=== PATIENT | male | born 1955 | race Caucasian/White ===

== ENCOUNTER 2017-10-06 10:40 | Inpatient (IN) | payer MEDICAID ==
[~2017-10-06] VITALS: Ht 175.3 cm; Wt 103.4 kg
[2017-10-06 10:42] VITALS: BP 162/85
[2017-10-06] MEDS ORDERED: ELIQUIS2.5 MG PO (10:58)
[2017-10-06] MEDS ORDERED: AMLODIPINE BES2.5 MG ORAL (10:58)
[2017-10-06] MEDS ORDERED: ASPIR 8181 MG ORAL (10:58)
[2017-10-06] MEDS ORDERED: DOCUSATE SODIU100 MG ORAL (10:58)
[2017-10-06] MEDS ORDERED: FOLIC ACID1 MG ORAL (10:58)
[2017-10-06] MEDS ORDERED: PROSCAR5 MG ORAL (10:58)
[2017-10-06] MEDS ORDERED: SOLARAZE100 GM TP (10:58)
[2017-10-06] MEDS ORDERED: CRANBERRY400 MG PO (10:58)
[2017-10-06] MEDS ORDERED: ARGININE PO (10:58)
[2017-10-06] MEDS ORDERED: VITAMIN D250000 UNI1 ORAL (10:58)
[2017-10-06] MEDS ORDERED: ATORVASTATIN CA40 MG ORAL (10:58)
[2017-10-06] MEDS ORDERED: ACETAMINOPHEN325 M1 ORAL (10:58)
[2017-10-06] MEDS ORDERED: Piperacillin/Tazobactam 3.375 GM in NS 110 ML IVPB ONE (11:00)
[2017-10-06] MEDS ORDERED: Tetanus/Diptheria/Pertussis Vaccine 0.5ml Syr IM ONE (11:00)
[2017-10-06] MEDS ORDERED: Vancomycin 1 GM in D5W 275 ML IVPB ONE (11:00)
[2017-10-06] MEDS ORDERED: LEVEMIR100 UNIT/1 SUBQ (11:11)
[2017-10-06] MEDS ORDERED: TAMSULOSIN HCL0.4 MG ORAL (11:11)
[2017-10-06] MEDS ORDERED: NEPHRO-VITE RX1 EAC1 PO (11:11)
[2017-10-06] MEDS ORDERED: LEVOTHYROXINE150 MCG ORAL (11:11)
[2017-10-06] MEDS ORDERED: LOSARTAN POTASS50 MG ORAL (11:11)
[2017-10-06] MEDS ORDERED: HUMALOG100 UNIT/4 SUBQ (11:11)
[2017-10-06] MEDS ORDERED: TRAMADOL HCL50 MG ORAL (11:11)
[2017-10-06] MEDS ORDERED: VITAMIN C500 M1 ORAL (11:11)
[2017-10-06] MEDS ORDERED: OFLOXACIN5 ML OT (11:11)
[2017-10-06] MEDS ORDERED: MELATONIN5 M4 ORAL (11:11)
[2017-10-06] MEDS ORDERED: ZOFRAN4 M3 ORAL (11:11)
[2017-10-06] MEDS ORDERED: GABAPENTIN300 MG ORAL (11:11)
--- NOTE | 2017-10-06 11:41 | Emergency Room Report ---
History of Present Illness General Chief Complaint: General Complaint Source: Patient, Medical Record Present Illness HPI 62-year-old male with "bleeding from left eye" Center long term. Patient states he was being washed and ?thats when his eye got traumatized. per paramedics, patient had blood 2-3 days ago, was sent to [facility] ED, was evaluated and DCed. Then apparently today, he had it ruptured Denies blurry, change in vision Denies pain to eye, only with right extra ocular movement Denies headache, vomiting Patient on ASA and apixiban AC Allergies: Coded Allergies: No Known Allergies (Unverified , 10/07/17) Patient History Past Medical History: CVA/TIA Past Surgical History: none Pertinent Family History: none Social History: Denies: smoking, alcohol use, drug use Immunizations: UTD Reviewed Nursing Documentation: PMH: Agreed, PSxH: Agreed Nursing Documentation-PMH Hx Hypertension: Yes Hx Diabetes: Yes Review of Systems All Other Systems: negative except mentioned in HPI Physical Exam Vital Signs Date Time Temp Pulse Resp B/P (MAP) Pulse Ox O2 Delivery O2 Flow Rate FiO2 10/06/17 10:32 97.9 66 18 159/81 94 Room Air Sp02 EP Interpretation: reviewed, normal General Appearance: normal inspection, well appearing, no apparent distress, alert, GCS 15, non-toxic Head: normocephalic, atraumatic Eyes: bilateral eye PERRL, bilateral eye EOMI, bilateral eye other - ?vitreous tissue exposed medial aspect of right eye with continued bloody drainage; injected conjunctiva. No afferent pupillary defect. EOMI however pain with looking right. No teardrop pupil. Vision intacct bilaterally. ENT: normal ENT inspection, hearing grossly normal, normal pharynx, no angioedema, normal voice, TMs + canals normal, uvula midline, moist mucus membranes Neck: normal inspection, full range of motion, supple, thyroid normal, no meningismus, no bony tend Respiratory: normal inspection, lungs clear, normal breath sounds, no rhonchi, no respiratory distress, no retraction, no accessory muscle use, no wheezing, speaking full sentences Cardiovascular #1: regular rate, rhythm, no edema, no JVD, normal capillary refill Gastrointestinal: normal inspection, normal bowel sounds, non tender, soft, no mass, no peritonitis, non-distended, no guarding, no hernia, no pulsatile mass Genitourinary: no CVA tenderness Musculoskeletal: normal inspection, back normal, normal range of motion, no calf tenderness, pelvis stable, Mariam's Sign negative Neurologic: normal inspection, alert, oriented x3, responsive, plant taxonomy teacher III-XII nml as tested, motor strength/tone normal, cerebellar normal, normal gait, speech normal Psychiatric: normal inspection, judgement/insight normal, mood/affect normal, no suicidal/homicidal ideation, no delusions Skin: normal inspection, normal color, no rash Lymphatic: normal inspection, no adenopathy Medical Decision Making Diagnostic Impression: Primary Impression: Subconjunctival hemorrhage of left eye Additional Impressions: Hyperkalemia ANGEL (acute kidney injury) Hypoglycemia ER Course [id number] with suspected left globe rupture, possibly traumatic May have had hyphema that ruptured in the last day High risk d/t anticoagulation Tetanus updated Eye shield was placed CT orbits: No globe rupture. Pre-septal hemorrhage Both Savaar brothers unavailable when contacted at 1115am Dr Parnell was consulted, returned my call at 1130am. - recommends 4x ointment erythromycin was started in ED - Does not believe this is globe rupture - Likely just pre-septal clot labs, patient has hyperkalemia 5.5, ANGEL, and hypoglycemia 62. ECG: isolated peaked T wave in V2. Was given calcium for membrane stabilization Fluids, glucose and albuterol given for hyperK and hypoglycemia endorse to Dr. Alejo to followup with Dr. Parnell when he comes to the ER to evaluate patient Endorsed to Dr. Moran for telemetry admission as per insurance at 2 PM EKG Diagnostic Results Rate: normal Rhythm: NSR ST Segments: other - peaked twave V2 ASA given to the pt in ED: No Rhythm Strip Diag. Results EP Interpretation: yes Rate: 71 Rhythm: NSR, no PVC's, no ectopy Last Vital Signs Date Time Temp Pulse Resp B/P (MAP) Pulse Ox O2 Delivery O2 Flow Rate FiO2 10/06/17 10:42 98.2 67 15 162/85 99 Room Air Status: improved Disposition: ADMITTED INPATIENT Condition: Serious Scripts Erythromycin Base (ERYTHROMYCIN*) 3.5 Gm Oint...g. 1 APPLIC LEFT EYE QID for 7 Days, #3.5 GM 0 Refills Prov: STANLEY WILSON M.D. 10/06/17 Referrals: Oni Schilling MD (PCP) STANLEY WILSON M.D. Oct 06, 2017 11:41
--- NOTE | 2017-10-06 11:42 | Diagnostic Imaging Report ---
Indication: Pain post trauma Technique: CT of the orbits performed without contrast material. Axial and coronal images were generated. Dose: Total Dose Length Product - DLP [address] Dose Index - CTDIvol(s) 28.19 mGy. Automated exposure control was utilized for dose reduction. Comparison: None Findings: There is partial opacification of the frontal sinuses, ethmoid sinuses, and sphenoid sinus. Mucoperiosteal thickening is noted in both maxillary sinuses with a right maxillary sinus air-fluid level. There is exophthalmus on the left. High density is seen anterior to the left globe. The retrobulbar fat appears normal. There is no evidence of posterior bleeding. The vitreous is unremarkable bilaterally. Therethe orbital floors are intact. The remainder of the orbits are intact. There is soft tissue density expanding the sphenoid sinus and eroding a portion of the sellar floor. This measures approximately 2.4 x 2.3 x 3.2 cm. Calcification is present in the left carotid siphon. There is also erosion of the right lateral wall of the sphenoid sinus and a portion of the posterior wall of the right sphenoid sinus. No acute fractures.. Impression: Preseptal hemorrhage in the left orbit. Left sided exophthalmos. Inflammatory changes in multiple paranasal sinuses as described. Expansile mass within the sphenoid sinus. Possibility of sphenoid sinus mucocele should be considered. Other etiologies such as malignancy is not excluded. The CT scanner at [facility] is accredited by the [employer] and the scans are performed using protocols designed to limit radiation exposure to as low as reasonably achievable to attain images of sufficient resolution adequate for diagnostic evaluation.
[2017-10-06 12:01] LABS: BASOPHILS % (AUTO) 0.9 % (0.0-2.0); EOSINOPHILS % (AUTO) 4.5 % (0.0-3.0); HEMATOCRIT 35.4 % (42.0-52.0); HEMOGLOBIN 11.4 G/DL (14.2-18.0); MEAN CORPUSCULAR VOLUME 94 FL (80-99); MONOCYTES % (AUTO) 6.2 % (1.0-10.0); NEUTROPHILS % (AUTO) 74.5 % (45.0-75.0); PLATELET COUNT 545 K/UL (150-450); RED BLOOD COUNT 3.77 M/UL (4.70-6.10); RED CELL DISTRIBUTION WIDTH 11.5 % (11.6-14.8); WHITE BLOOD COUNT 14.3 K/UL (4.8-10.8)
[2017-10-06] MEDS: Erythromycin Opth Ointment 3.5gm LEFT EYE SCH (12:07)
[2017-10-06 12:12] LABS: ANION GAP 9 mmol/L (5-15); BLOOD UREA NITROGEN 46 mg/dL (7-18); CALCIUM 9.2 MG/DL (8.5-10.1); CARBON DIOXIDE 27 MMOL/L (21-32); CHLORIDE 104 MMOL/L (98-107); CREATININE 1.9 MG/DL (0.55-1.30); POTASSIUM 5.5 MMOL/L (3.5-5.1); SODIUM 140 MMOL/L (136-145)
[2017-10-06 12:18] LABS: ALANINE AMINOTRANSFERASE 15 U/L (12-78); ALBUMIN 2.3 G/DL (3.4-5.0); ALBUMIN/GLOBULIN RATIO 0.4 (1.0-2.7); ALKALINE PHOSPHATASE 101 U/L (46-116); ASPARTATE AMINO TRANSFERASE 36 U/L (15-37); BILIRUBIN,TOTAL 0.5 MG/DL (0.2-1.0)
[2017-10-06 13:00] VITALS: BP 147/67
[2017-10-06] MEDS ORDERED: ERYTHROMYCIN3.5 GM LEFT EYE (13:51)
[2017-10-06] MEDS ORDERED: Albuterol ud Inhalation HHN ONE (14:00)
[2017-10-06] MEDS ORDERED: Calcium Gluconate 1gm/10ml vial IVP ONE (14:15)
[2017-10-06] MEDS ORDERED: Mylanta II UD 30ml ORAL PRN (15:00)
[2017-10-06] MEDS ORDERED: Morphine Sulfate 2mg/ml Inj IVP PRN (15:00)
[2017-10-06] MEDS ORDERED: Ketorolac 30mg Inj IV PRN (15:00)
[2017-10-06] MEDS ORDERED: Albuterol/Ipratropium 3ml neb HHN PRN (15:00)
[2017-10-06] MEDS ORDERED: Nitroglycerin Subl 0.4mg tab SL PRN (15:00)
[2017-10-06] MEDS ORDERED: Miralax 17gm pkt ORAL PRN (15:00)
[2017-10-06 16:06] VITALS: BP 130/81
[2017-10-06] MEDS: NovoLOG Insulin Flexpen SUBQ SCH ×2 (16:31→20:43)
[2017-10-06 20:00] VITALS: BP 132/74
[2017-10-06 20:31] VITALS: BP 119/57
[2017-10-06] MEDS: Tamsulosin 0.4mg cap ORAL SCH (20:40)
[2017-10-06] MEDS: Atorvastatin 80mg tab ORAL SCH (20:40)
[2017-10-06] MEDS: Heparin 5000 units/ml inj SUBQ SCH (20:43)
[2017-10-07] VITALS (7 sets, daily range): BP systolic 103–148; BP diastolic 62–81
[2017-10-07] MEDS: NovoLOG Insulin Flexpen SUBQ SCH ×2 (06:31→12:33)
[2017-10-07 08:17] LABS: BASOPHILS % (AUTO) 0.8 % (0.0-2.0); EOSINOPHILS % (AUTO) 4.1 % (0.0-3.0); HEMATOCRIT 30.3 % (42.0-52.0); HEMOGLOBIN 9.9 G/DL (14.2-18.0); LYMPHOCYTES % (AUTO) 20.1 % (20.0-45.0); MEAN CORPUSCULAR VOLUME 93 FL (80-99); MONOCYTES % (AUTO) 6.6 % (1.0-10.0); NEUTROPHILS % (AUTO) 68.4 % (45.0-75.0); PLATELET COUNT 475 K/UL (150-450); RED BLOOD COUNT 3.26 M/UL (4.70-6.10); RED CELL DISTRIBUTION WIDTH 11.8 % (11.6-14.8); WHITE BLOOD COUNT 13.5 K/UL (4.8-10.8)
[2017-10-07 08:35] LABS: ALANINE AMINOTRANSFERASE 9 U/L (12-78); ALBUMIN 2.1 G/DL (3.4-5.0); ALBUMIN/GLOBULIN RATIO 0.4 (1.0-2.7); ALKALINE PHOSPHATASE 93 U/L (46-116); ANION GAP 9 mmol/L (5-15); ASPARTATE AMINO TRANSFERASE 17 U/L (15-37); BILIRUBIN,TOTAL 0.2 MG/DL (0.2-1.0); BLOOD UREA NITROGEN 47 mg/dL (7-18); CALCIUM 8.9 MG/DL (8.5-10.1); CARBON DIOXIDE 27 MMOL/L (21-32); CHLORIDE 106 MMOL/L (98-107); CHOLESTEROL 67 MG/DL (< 200); CREATININE 2.2 MG/DL (0.55-1.30); HDL CHOLESTEROL 24 MG/DL (40-60); SODIUM 142 MMOL/L (136-145); TRIGLYCERIDES 63 MG/DL (30-150)
[2017-10-07] MEDS: Heparin 5000 units/ml inj SUBQ SCH ×2 (09:19→20:39)
--- NOTE | 2017-10-07 09:34 | Diagnostic Imaging Report ---
Indication: Cough Technique: XRAY Chest 1v Comparison: None. Findings: The cardiomediastinal silhouette is normal. The lungs are clear. There is no evidence of pleural fluid. Hardware is present in the lower cervical spine from previous fusion. Impression: Previous cervical fusion. Otherwise negative chest.
--- NOTE | 2017-10-07 12:14 | History and Physical ---
History of Present Illness General Date patient seen: Oct 07, 2017 Time patient seen: 12:00 Reason for Hospitalization: General Complaint Present Illness HPI 62-year-old male with PMH of HTN, CVA, DM, hypothyroidism presented from SNF to ED for evaluation with "bleeding from left eye" Patient statede he was being washed and ? his eye got traumatized. per paramedics, patient had blood 2-3 days ago, was sent to [facility] ED, was evaluated and dc Then apparently to day of presentation to ED, he had it ruptured Denied blurry, change in vision Denied pain in eye, only with right extra ocular movement Denies headache, vomiting Patient on ASA and apixiban Workup in ED reveled elevated BP-159/81 Lab work revealed leukcoytosi-14.3 anemia 11.4/35.4, this am -9.9/30.3 K-5.5 BUN-46, creat-1.9, this am -47/2.2 BS-62 this am TSH-0.089 CT hed and orbits revealed: Preseptal hemorrhage in the left orbit. Left sided exophthalmos. Inflammatory changes in multiple paranasal sinuses as described. Expansile mass within the sphenoid sinus. Possibility of sphenoid sinus mucocele should be considered. Patient was admitted for further managements Allergies: Coded Allergies: No Known Allergies (Unverified , 10/07/17) Medication History Scheduled Amlodipine Besylate* (Amlodipine Besylate*), 2.5 MG ORAL DAILY, (Reported) Apixaban (Eliquis), 2.5 MG PO BID, (Reported) Arginine (Arginine), 50 GM PO DAILY, (Reported) Ascorbic Acid* (Vitamin C*), 500 MG ORAL DAILY, (Reported) Aspirin* (Aspir 81*), 81 MG ORAL DAILY, (Reported) Atorvastatin Calcium* (Atorvastatin Calcium*), 80 MG ORAL BEDTIME, (Reported) Cranberry (Cranberry), 400 MG PO DAILY, (Reported) Docusate Sodium* (Docusate Sodium*), 100 MG ORAL TWICE A DAY, (Reported) Ergocalciferol (Vitamin D2)* (Vitamin D*), 50,000 UNIT ORAL ONCE A WEEK, ( Reported) Erythromycin Base (Erythromycin*), 1 APPLIC LEFT EYE QID Finasteride* (Proscar*), 5 MG ORAL DAILY, (Reported) Folic Acid* (Folic Acid*), 1 MG ORAL DAILY, (Reported) Gabapentin* (Gabapentin*), 300 MG ORAL BEDTIME, (Reported) Insulin Detemir (Levemir), 0 SUBQ BEDTIME, (Reported) Levothyroxine Sodium* (Levothyroxine Sodium*), 200 MCG ORAL DAILY, (Reported) Losartan Potassium* (Losartan Potassium*), 50 MG ORAL DAILY, (Reported) Tamsulosin Hcl (Tamsulosin Hcl*), 0.4 MG ORAL BEDTIME, (Reported) Vit B Cmplx 3/Fa/Vit C/Biotin (Nephro-Kym Rx Tablet), 1 EACH PO DAILY, ( Reported) Scheduled PRN Acetaminophen* (Acetaminophen 325MG Tablet*), 650 MG ORAL Q6H PRN for Pain Scale (3-5), (Reported) Melatonin (Melatonin), 6 MG ORAL BEDTIME PRN for Insomnia, (Reported) Ondansetron* (Zofran*), 4 MG ORAL Q6H PRN for Nausea & Vomiting, (Reported) Tramadol Hcl* (Ultram*), 50 MG ORAL Q6H PRN for For Pain, (Reported) Miscellaneous Medications Diclofenac Sodium (Solaraze), 100 GM TP, (Reported) Insulin Lispro (Humalog), 0 SUBQ, (Reported) Ofloxacin (Ofloxacin), 5 ML OT, (Reported) Patient History History Provided By: Medical Record Healthcare decision maker Resuscitation status Full Code Advanced Directive on File Review of Systems Eye: Reports: see HPI ENT: Reports: no symptoms Respiratory: Reports: no symptoms Cardiovascular: Reports: no symptoms, other - HTN Gastrointestinal: Reports: no symptoms Genitourinary: Reports: no symptoms, see HPI Musculoskeletal: Reports: muscle stiffness Skin: Reports: see HPI - L eye Psychiatric: Reports: no symptoms Neurological: Reports: no symptoms Endocrine: Reports: see HPI, other - DM Hematologic/Lymphatic: Reports: anemia Physical Exam General Appearance: no apparent distress, alert Lines, tubes and drains: peripheral HEENT: normocephalic, atraumatic, mucous membranes moist, supple, no JVD, other - ?vitreous tissue in medial aspect of right eye with continued bloody drainage, pain with EOM looking right Respiratory/Chest: lungs clear, normal breath sounds, no respiratory distress, no accessory muscle use Cardiovascular/Chest: normal rate, regular rhythm - SR on tele Abdomen: normal bowel sounds, non tender, soft - obese Extremities: non-tender, no calf tenderness, normal capillary refill Neurologic: alert, responsive Last 24 Hour Vital Signs Date Time Temp Pulse Resp B/P (MAP) Pulse Ox O2 Delivery O2 Flow Rate FiO2 10/07/17 09:17 62 142/70 10/07/17 08:00 63 10/07/17 08:00 97.0 62 18 142/70 97 Room Air 10/07/17 04:00 97.2 74 20 106/65 95 Room Air 10/07/17 04:00 69 10/07/17 00:30 98.1 74 18 103/62 96 Room Air 10/07/17 00:00 98.1 90 20 118/69 95 Room Air 10/07/17 00:00 71 10/06/17 20:31 97.7 89 19 119/57 Nasal Cannula 10/06/17 20:00 88 10/06/17 20:00 98.5 89 18 132/74 95 Room Air 10/06/17 16:06 98.1 105 16 130/81 98 Room Air 10/06/17 15:48 107 10/06/17 15:30 98.1 111 14 123/74 99 Room Air 10/06/17 14:23 76 12 96 Room Air 21 10/06/17 14:15 72 16 Room Air 21 10/06/17 14:10 72 16 96 Room Air 21 10/06/17 13:00 98.1 66 16 147/67 98 Room Air Intake and Output 10/06/17 10/07/17 19:00 07:00 Intake Total 1120 ml 1200 ml Output Total 400 ml Balance 720 ml 1200 ml Intake Oral 120 ml IV Total 1000 ml 1200 ml Output Urine Total 400 ml Laboratory Tests Test 10/07/17 05:32 White Blood Count 13.5 K/UL (4.8-10.8) H Red Blood Count 3.26 M/UL (4.70-6.10) L Hemoglobin 9.9 G/DL (14.2-18.0) L Hematocrit 30.3 % (42.0-52.0) L Mean Corpuscular Volume 93 FL (80-99) Mean Corpuscular Hemoglobin 30.5 PG (27.0-31.0) Mean Corpuscular Hemoglobin Concent 32.8 G/DL (32.0-36.0) Red Cell Distribution Width 11.8 % (11.6-14.8) Platelet Count 475 K/UL (150-450) H Mean Platelet Volume 5.8 FL (6.5-10.1) L Neutrophils (%) (Auto) 68.4 % (45.0-75.0) Lymphocytes (%) (Auto) 20.1 % (20.0-45.0) Monocytes (%) (Auto) 6.6 % (1.0-10.0) Eosinophils (%) (Auto) 4.1 % (0.0-3.0) H Basophils (%) (Auto) 0.8 % (0.0-2.0) Sodium Level 142 MMOL/L (136-145) Potassium Level 4.0 MMOL/L (3.5-5.1) Chloride Level 106 MMOL/L (98-107) Carbon Dioxide Level 27 MMOL/L (21-32) Anion Gap 9 mmol/L (5-15) Blood Urea Nitrogen 47 mg/dL (7-18) H Creatinine 2.2 MG/DL (0.55-1.30) H Estimat Glomerular Filtration Rate 30.5 mL/min (>60) Glucose Level 139 MG/DL (74-106) H Hemoglobin A1c 8.4 % (4.3-6.0) H Calcium Level 8.9 MG/DL (8.5-10.1) Total Bilirubin 0.2 MG/DL (0.2-1.0) Aspartate Amino Transf (AST/SGOT) 17 U/L (15-37) Alanine Aminotransferase (ALT/SGPT) 9 U/L (12-78) L Alkaline Phosphatase 93 U/L (46-116) Total Protein 7.1 G/DL (6.4-8.2) Albumin 2.1 G/DL (3.4-5.0) L Globulin 5.0 g/dL Albumin/Globulin Ratio 0.4 (1.0-2.7) L Triglycerides Level 63 MG/DL (30-150) Cholesterol Level 67 MG/DL (< 200) LDL Cholesterol 38 mg/dL (<100) HDL Cholesterol 24 MG/DL (40-60) L Cholesterol/HDL Ratio 2.8 (3.3-4.4) L Thyroid Stimulating Hormone (TSH) 0.089 uiU/mL (0.358-3.740) Height (Feet): 5 Height (Inches): 9.00 Weight (Pounds): 228 Medications Current Medications Medications (Trade) Dose Ordered Sig/Leon Route PRN Reason Start Time Stop Time Status Last Admin Dose Admin Acetaminophen (Tylenol) 650 mg Q4H PRN ORAL fever 10/06/17 15:00 11/05/17 14:59 Al Hydroxide/Mg Hydroxide (Mylanta II) 30 ml Q6H PRN ORAL dyspepsia 10/06/17 15:00 11/05/17 14:59 Albuterol/ Ipratropium (Albuterol/ Ipratropium) 3 ml Q4H PRN HHN Shortness of Breath 10/06/17 15:00 10/11/17 14:59 Amlodipine Besylate (Norvasc) 2.5 mg DAILY ORAL 10/07/17 09:00 11/06/17 08:59 10/07/17 09:17 Atorvastatin Calcium (Lipitor) 80 mg BEDTIME ORAL 10/06/17 21:00 11/05/17 20:59 10/06/17 20:40 Clonidine HCl (Catapres Tab) 0.1 mg Q4H PRN ORAL sbp more than 160 10/06/17 15:00 11/05/17 14:59 Dextrose (Dextrose 50%) STAT PRN IV Hypoglycemia 10/06/17 15:00 11/05/17 14:59 Erythromycin (Ilotycin) 1 applic STAT LEFT EYE 10/06/17 12:15 10/13/17 12:14 10/06/17 12:07 Finasteride (Proscar) 5 mg DAILY ORAL 10/07/17 09:00 11/06/17 08:59 10/07/17 09:17 Gabapentin (Neurontin) 300 mg BEDTIME ORAL 10/06/17 21:00 11/05/17 20:59 10/06/17 20:40 Heparin Sodium (Porcine) (Heparin 5000 units/ml) 5,000 units EVERY 12 HOURS SUBQ 10/06/17 21:00 11/05/17 20:59 10/07/17 09:19 Insulin Aspart (NovoLOG) BEFORE MEALS AND HS SUBQ 10/06/17 16:30 11/05/17 16:29 10/07/17 06:31 Ketorolac Tromethamine (Toradol 30mg) 30 mg Q6H PRN IV moderate pain 4-6 10/06/17 15:00 10/11/17 14:59 Levothyroxine Sodium (Synthroid) 200 mcg ACBREAKFAST ORAL 10/07/17 06:30 11/06/17 06:29 10/07/17 06:28 Morphine Sulfate (Morphine Sulfate) 2 mg Q4H PRN IVP severe pain 7-10 10/06/17 15:00 10/13/17 14:59 Nitroglycerin (Ntg) 0.4 mg Q5M X 3 DOSES PRN SL Prn Chest Pain 10/06/17 15:00 11/05/17 14:59 Ondansetron HCl (Zofran) 4 mg Q6H PRN IVP Nausea & Vomiting 10/06/17 15:00 11/05/17 14:59 Polyethylene Glycol (Miralax) 17 gm HSPRN PRN ORAL Constipation 10/06/17 15:00 11/05/17 14:59 Sodium Chloride 1,000 ml @ 100 mls/hr Q10H IVLG 10/06/17 16:30 11/05/17 16:29 10/07/17 02:40 Tamsulosin HCl (Flomax) 0.4 mg BEDTIME ORAL 10/06/17 21:00 11/05/17 20:59 10/06/17 20:40 Temazepam (Restoril) 15 mg HSPRN PRN ORAL Insomnia 10/06/17 15:00 10/13/17 14:59 Assessment/Plan Assessment/Plan ASSESSMENT preseptal hemorrhage of left eye 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 Hyperkalemia ANGEL (acute kidney injury) Hypoglycemia associated with DM HTN Leukocytosis Anemia Hypothyroidism with low TSH PLAN OF CARE CT head/orbit- no acute fracture, + preseptal hemorrhage ophthalmology eval erythromycin ointment( started i ED) ENT eval Hyperkalemia resolved with treatment IVF renal US monitor renal parameters, lytes, avoid nephrotoxic [id number], not at goal, but for now will just keep SS of insulin, dc premeal due to recent hypoglycemia BP management with CCB and Clonidine prn CXR negative O2 HHN prn DVT prophylaxis decrease Levothyroxine dose, check TSH in 4 wks check UA anemia w/up monitor counts, transfuse prn PT/OT transfer to [facility] floor case discussed and evaluated by supervising physician Elvin (Carlos),Dina PARKER Oct 07, 2017 12:14
[2017-10-07] MEDS: Erythromycin Opth Ointment 3.5gm LEFT EYE SCH (12:31)
[2017-10-07] MEDS: Atorvastatin 80mg tab ORAL SCH (20:37)
[2017-10-07] MEDS: Tamsulosin 0.4mg cap ORAL SCH (20:37)
[2017-10-08] VITALS (7 sets, daily range): BP systolic 158–177; BP diastolic 70–92
[2017-10-08 05:22] LABS: BILIRUBIN, URINE NEGATIVE (NEGATIVE); COLOR,URINE PALE YELLOW; GLUCOSE, URINE (UA) NEGATIVE (NEGATIVE); KETONES,URINE 1+ (NEGATIVE); LEUKOCYTE ESTERASE ,URINE 3+ (NEGATIVE); NITRITE,URINE POSITIVE (NEGATIVE); PH,URINE 5 (4.5-8.0); PROTEIN,URINE 3+ (NEGATIVE); UROBILINOGEN,URINE NORMAL MG/DL (0.0-1.0)
[2017-10-08 06:16] LABS: APPEARANCE,URINE CLOUDY
[2017-10-08 07:40] LABS: BASOPHILS % (AUTO) 0.6 % (0.0-2.0); EOSINOPHILS % (AUTO) 6.5 % (0.0-3.0); HEMATOCRIT 31.1 % (42.0-52.0); LYMPHOCYTES % (AUTO) 17.9 % (20.0-45.0); MEAN CORPUSCULAR VOLUME 94 FL (80-99); MONOCYTES % (AUTO) 5.3 % (1.0-10.0); NEUTROPHILS % (AUTO) 69.6 % (45.0-75.0); PLATELET COUNT 476 K/UL (150-450); RED BLOOD COUNT 3.32 M/UL (4.70-6.10); WHITE BLOOD COUNT 13.9 K/UL (4.8-10.8)
[2017-10-08 08:22] LABS: ANION GAP 11 mmol/L (5-15); BLOOD UREA NITROGEN 36 mg/dL (7-18); CALCIUM 8.8 MG/DL (8.5-10.1); CARBON DIOXIDE 25 MMOL/L (21-32); CHLORIDE 108 MMOL/L (98-107); CREATININE 1.7 MG/DL (0.55-1.30); FERRITIN 310 NG/ML (8-388); POTASSIUM 3.7 MMOL/L (3.5-5.1); SODIUM 144 MMOL/L (136-145)
[2017-10-08 08:40] LABS: % IRON SATURATION 42 % (15-50); IRON 49 ug/dL (50-175); TOTAL IRON BINDING CAPACITY 117 ug/dL (250-450)
[2017-10-08] MEDS ORDERED: Nitroglycerin Subl 0.4mg tab SL PRN (09:00)
[2017-10-08] MEDS ORDERED: Ketorolac 30mg Inj IV PRN (09:00)
[2017-10-08] MEDS ORDERED: Mylanta II UD 30ml ORAL PRN (09:00)
[2017-10-08] MEDS: Heparin 5000 units/ml inj SUBQ SCH ×2 (09:48→20:52)
[2017-10-08] MEDS ORDERED: Morphine Sulfate 2mg/ml Inj IVP PRN (11:00)
[2017-10-08] MEDS ORDERED: Albuterol/Ipratropium 3ml neb HHN PRN (11:00)
[2017-10-08] MEDS ORDERED: Miralax 17gm pkt ORAL PRN (15:00)
[2017-10-08] MEDS: Erythromycin Opth Ointment 3.5gm LEFT EYE SCH (16:58)
--- NOTE | 2017-10-08 18:01 | Pulmonology Progress Note ---
Assessment/Plan Problems: (1) ANGEL (acute kidney injury) (2) Hyperkalemia (3) Subconjunctival hemorrhage of left eye Assessment/Plan iv fluids check electrolytes Grain Trader saw the pt in ER and cleared or discharge. check bmp in am renal evaluation Subjective ROS Limited/Unobtainable: No Allergies: Coded Allergies: No Known Allergies (Unverified , 10/07/17) Objective Last 24 Hour Vital Signs Date Time Temp Pulse Resp B/P (MAP) Pulse Ox O2 Delivery O2 Flow Rate FiO2 10/08/17 16:04 98.0 67 20 158/80 98 10/08/17 12:04 177/92 10/08/17 11:58 98.4 74 20 177/92 98 10/08/17 09:45 79 161/90 10/08/17 08:45 97.7 79 18 161/90 97 Room Air 10/08/17 07:50 75 16 Room Air 21 10/08/17 04:00 97.9 73 18 158/77 97 Room Air 10/08/17 00:00 98.9 71 20 160/86 97 Room Air 10/07/17 20:00 98.8 71 24 148/81 97 Room Air 10/07/17 19:06 71 16 Room Air 21 Intake and Output 10/07/17 10/08/17 19:00 07:00 Intake Total 1300 ml Output Total 1000 ml Balance 300 ml Intake Oral 100 ml IV Total 1200 ml Output Urine Total 1000 ml # Bowel Movements 1 General Appearance: WD/WN HEENT: normocephalic Respiratory/Chest: chest wall non-tender, lungs clear, normal breath sounds Abdomen: normal bowel sounds, soft, non tender Genitourinary: normal external genitalia Extremities: no clubbing Neurologic/Psychiatric: assessment nurse II-XII grossly normal, abnormal gait Microbiology Date/Time Source Procedure Growth Status 10/06/17 16:30 Nasal Nares MRSA Culture - Final NO METHICILLIN RESISTANT STAPH AUREUS... Complete 10/06/17 16:30 Rectum VRE Culture - Final NO VANCOMYCIN RESISTANT ENTEROCOCCUS ... Complete Laboratory Tests 10/08/17 02:15: Urine Color Pale yellow, Urine Appearance Cloudy, Urine pH 5, Urine Specific [place] 1.015, Urine Protein 3+H, Urine Glucose (UA) Negative, Urine Ketones 1+H , Urine Occult Blood 3+H, Urine Nitrite PositiveH, Urine Bilirubin Negative, Urine Urobilinogen Normal, Urine Leukocyte Esterase 3+H, Urine RBC 15-20H, Urine WBC TntcH, Urine Squamous Epithelial Cells None, Urine Bacteria ManyH 10/08/17 05:35: White Blood Count 13.9H, Red Blood Count 3.32L, Hemoglobin 10.0L, Hematocrit 31.1L, Mean Corpuscular Volume 94, Mean Corpuscular Hemoglobin 30.2, Mean Corpuscular Hemoglobin Concent 32.3, Red Cell Distribution Width 12.0, Platelet Count 476H, Mean Platelet Volume 6.0L, Neutrophils (%) (Auto) 69.6, Lymphocytes (%) (Auto) 17.9L, Monocytes (%) (Auto) 5.3, Eosinophils (%) (Auto) 6.5H, Basophils (%) (Auto) 0.6, Sodium Level 144, Potassium Level 3.7, Chloride Level 108H, Carbon Dioxide Level 25, Anion Gap 11, Blood Urea Nitrogen 36H, Creatinine 1.7H, Estimat Glomerular Filtration Rate 41.0, Glucose Level 126H, Calcium Level 8.8, Iron Level 49L, Total Iron Binding Capacity 117L, Percent Iron Saturation 42, Unsaturated Iron Binding 68L, Ferritin 310, Vitamin B12 Level 1135H, RBC Folate Hemolysate [Pending], Red Blood Cell Folate [Pending] Current Medications Medications (Trade) Dose Ordered Sig/Leon Route PRN Reason Start Time Stop Time Status Last Admin Dose Admin Acetaminophen (Tylenol) 650 mg Q4H PRN ORAL fever 10/08/17 11:00 11/05/17 14:59 Al Hydroxide/Mg Hydroxide (Mylanta II) 30 ml Q6H PRN ORAL dyspepsia 10/08/17 09:00 11/05/17 14:59 Albuterol/ Ipratropium (Albuterol/ Ipratropium) 3 ml Q4H PRN HHN Shortness of Breath 10/08/17 11:00 10/11/17 14:59 Amlodipine Besylate (Norvasc) 2.5 mg DAILY ORAL 10/08/17 09:00 11/06/17 08:59 10/08/17 09:45 Atorvastatin Calcium (Lipitor) 80 mg BEDTIME ORAL 10/08/17 21:00 11/05/17 20:59 Clonidine HCl (Catapres Tab) 0.1 mg Q4H PRN ORAL sbp more than 160 10/08/17 11:00 11/05/17 14:59 10/08/17 12:04 Dextrose (Dextrose 50%) STAT PRN IV Hypoglycemia 10/08/17 15:00 11/05/17 14:59 Erythromycin (Ilotycin) 1 applic STAT LEFT EYE 10/08/17 12:15 10/13/17 12:14 10/08/17 16:58 Finasteride (Proscar) 5 mg DAILY ORAL 10/08/17 09:00 11/06/17 08:59 10/08/17 09:44 Gabapentin (Neurontin) 300 mg BEDTIME ORAL 10/08/17 21:00 11/05/17 20:59 Heparin Sodium (Porcine) (Heparin 5000 units/ml) 5,000 units EVERY 12 HOURS SUBQ 10/08/17 09:00 11/05/17 20:59 10/08/17 09:48 Ketorolac Tromethamine (Toradol 30mg) 30 mg Q6H PRN IV moderate pain 4-6 10/08/17 09:00 10/11/17 14:59 Levothyroxine Sodium (Synthroid) 150 mcg ACBREAKFAST ORAL 10/09/17 06:30 11/07/17 06:29 Morphine Sulfate (Morphine Sulfate) 2 mg Q4H PRN IVP severe pain 7-10 10/08/17 11:00 10/13/17 14:59 Nitroglycerin (Ntg) 0.4 mg Q5M X 3 DOSES PRN SL Prn Chest Pain 10/08/17 09:00 11/05/17 14:59 Ondansetron HCl (Zofran) 4 mg Q6H PRN IVP Nausea & Vomiting 10/08/17 09:00 11/05/17 14:59 Polyethylene Glycol (Miralax) 17 gm HSPRN PRN ORAL Constipation 10/08/17 15:00 11/05/17 14:59 Sodium Chloride 1,000 ml @ 100 mls/hr Q10H IVLG 10/08/17 09:00 11/05/17 16:29 Tamsulosin HCl (Flomax) 0.4 mg BEDTIME ORAL 10/08/17 21:00 11/05/17 20:59 Temazepam (Restoril) 15 mg HSPRN PRN ORAL Insomnia 10/08/17 15:00 10/13/17 14:59 LUIS AMBROSIO Oct 08, 2017 18:01
[2017-10-08] MEDS ORDERED: NS 275ml ONE (19:00)
[2017-10-08] MEDS: Tamsulosin 0.4mg cap ORAL SCH (20:51)
[2017-10-08] MEDS: Atorvastatin 80mg tab ORAL SCH (20:51)
[2017-10-09 04:33] VITALS: BP 166/76
[2017-10-09 05:30] VITALS: BP 158/76
[2017-10-09 07:30] LABS: ALANINE AMINOTRANSFERASE 17 U/L (12-78); ALBUMIN/GLOBULIN RATIO 0.4 (1.0-2.7); ALKALINE PHOSPHATASE 92 U/L (46-116); ANION GAP 8 mmol/L (5-15); ASPARTATE AMINO TRANSFERASE 14 U/L (15-37); BILIRUBIN,TOTAL 0.3 MG/DL (0.2-1.0); BLOOD UREA NITROGEN 29 mg/dL (7-18); CALCIUM 8.7 MG/DL (8.5-10.1); CARBON DIOXIDE 27 MMOL/L (21-32); CHLORIDE 109 MMOL/L (98-107); CREATININE 1.5 MG/DL (0.55-1.30); POTASSIUM 4.1 MMOL/L (3.5-5.1); SODIUM 143 MMOL/L (136-145)
[2017-10-09 07:31] LABS: BASOPHILS % (AUTO) 0.8 % (0.0-2.0); EOSINOPHILS % (AUTO) 6.2 % (0.0-3.0); HEMATOCRIT 30.7 % (42.0-52.0); LYMPHOCYTES % (AUTO) 17.2 % (20.0-45.0); MEAN CORPUSCULAR VOLUME 94 FL (80-99); MONOCYTES % (AUTO) 6.1 % (1.0-10.0); NEUTROPHILS % (AUTO) 69.8 % (45.0-75.0); PLATELET COUNT 465 K/UL (150-450); RED BLOOD COUNT 3.28 M/UL (4.70-6.10); RED CELL DISTRIBUTION WIDTH 11.6 % (11.6-14.8); WHITE BLOOD COUNT 13.2 K/UL (4.8-10.8)
[2017-10-09 08:28] VITALS: BP 176/90
[2017-10-09] MEDS: Heparin 5000 units/ml inj SUBQ SCH ×2 (09:50→20:30)
--- NOTE | 2017-10-09 10:13 | Wound Care Consultation ---
Wound Assessment Wound Assessment #1: Wound Number: 1 Wound Present on Admission: Yes New Wound: No Status Change of Wound: No Wound Location Body Site Modif: mid Wound Location Body Site: coccyx Wound Type: pressure ulcer Ernesto Test: Does not Ernesto Pressure Ulcer Stage: II Wound Thickness: Partial Thickness Wound Length: 1.5 Wound Width: 1.0 Wound Depth: less than 0.1 Percent of Wound Denio/Red: 100 Wound Drainage Description: Serosanguineous Wound Drainage Amount: Scant Wound Drainage Odor: None/Absent Tissue Surrounding Wound: Erythemic Wound General Appearance: Reddened, Draining Wound Assessment #2: Wound Number: 2 Wound Present on Admission: Yes New Wound: No Status Change of Wound: No Wound Location Body Site Modif: right Wound Location Body Site: buttocks Wound Type: pressure ulcer Ernesto Test: Does not Ernesto Pressure Ulcer Stage: II Wound Thickness: Partial Thickness Wound Length: 1.5 Wound Width: 1.5 Wound Depth: less than 0.1 Percent of Wound Denio/Red: 100 Wound Drainage Description: Serosanguineous Wound Drainage Amount: Scant Wound Drainage Odor: None/Absent Tissue Surrounding Wound: Erythemic Wound General Appearance: Reddened Wound Assessment #3: Wound Number: 3 Wound Present on Admission: Yes New Wound: No Status Change of Wound: No Wound Location Body Site Modif: left Wound Location Body Site: buttocks Wound Type: pressure ulcer Ernesto Test: Does not Ernesto Pressure Ulcer Stage: II - Scattered Wound Thickness: Partial Thickness Wound Length: 3.5 Wound Width: 3.5 Wound Depth: less than 0.1 Percent of Wound Denio/Red: 100 Wound Drainage Amount: None Wound Drainage Odor: None/Absent Tissue Surrounding Wound: Intact Wound General Appearance: Reddened, Draining Wound Assessment #4: Wound Number: 4 Wound Present on Admission: Yes New Wound: No Status Change of Wound: No Wound Location Body Site Modif: left Wound Location Body Site: heel Wound Type: pressure ulcer Ernesto Test: Does not Ernesto Pressure Ulcer Stage: Unstageable - revealing as stage III Wound Thickness: Full Thickness Wound Length: 6.0 Wound Width: 8.5 Wound Depth: utd Percent of Wound Denio/Red: 60 Percent of Wound Bed Yellow/Wh: 30 Percent of Wound Black/Brown: 10 Wound Drainage Description: Serosanguineous Wound Drainage Amount: Moderate Wound Drainage Odor: None/Absent Tissue Surrounding Wound: Macerated Wound General Appearance: Reddened - yellow, Blackened, Draining Wound Comment #1 Left heel unstageable pressure ulcer revealing as stage III pressure ulcer #2 Left buttock scattered stage II pressure ulcer #3 Right buttock stage II pressure ulcer #4 Coccygeal stage II pressure ulcer Recommendation -Local wound care pre protocol -Keep clean and dry -Optimize nutrition -Offload both heels -Heel protector on both heels -Low air loss mattress -Turn and reposition -Assess and f/u accordingly for an changes NICKY ROSS RN Oct 09, 2017 10:13
[2017-10-09 11:42] VITALS: BP 184/89
--- NOTE | 2017-10-09 12:09 | Consultation ---
Consult Note Consult Note ID DIc # [id number] ZAY BAUM M.D. Oct 09, 2017 12:09
[2017-10-09] MEDS: Erythromycin Opth Ointment 3.5gm LEFT EYE SCH (13:01)
--- NOTE | 2017-10-09 13:06 | Diagnostic Imaging Report ---
Indication: Acute renal failure Technique: Grayscale and duplex images of the kidneys, retroperitoneum, and bladder were obtained. Comparison: none Findings: Right kidney measures cm in length. Left kidney measures 12.4 cm in length. Both kidneys demonstrate normal echogenicity. No hydronephrosis. There are bilateral renal cysts. There is equivocal perinephric fluid adjacent to the left lower pole.. Normal inferior vena cava. Bladder is empty, contains a Kamara catheter. There is equivocal bladder wall thickening, more likely an artifact of under distention. Impression: Negative for hydronephrosis Bilateral renal cysts incidentally noted Possible left perinephric fluid, nonspecific as regards etiology if real Empty bladder, containing a Kamara catheter.
--- NOTE | 2017-10-09 13:26 | Pulmonology Progress Note ---
Assessment/Plan Problems: (1) ANGEL (acute kidney injury) (2) Hyperkalemia (3) Subconjunctival hemorrhage of left eye Assessment/Plan iv fluids check electrolytes [facility] saw the pt in ER and cleared or discharge. check bmp in am renal evaluation Subjective ROS Limited/Unobtainable: No Constitutional: Reports: no symptoms HEENT: Repors: no symptoms Respiratory: Reports: no symptoms Allergies: Coded Allergies: No Known Allergies (Unverified , 10/07/17) Objective Last 24 Hour Vital Signs Date Time Temp Pulse Resp B/P (MAP) Pulse Ox O2 Delivery O2 Flow Rate FiO2 10/09/17 11:42 98.0 69 20 184/89 96 10/09/17 11:42 Room Air 10/09/17 09:48 64 187/91 10/09/17 08:28 97.8 64 20 176/90 98 10/09/17 08:28 Room Air 10/09/17 07:55 72 16 Room Air 21 10/09/17 05:30 158/76 10/09/17 04:33 98.1 61 20 166/76 96 10/09/17 04:33 96 Room Air 10/09/17 00:15 96 Room Air 10/08/17 23:54 98.1 69 20 158/70 96 10/08/17 20:51 165/77 10/08/17 20:00 96 Room Air 10/08/17 20:00 98.0 68 20 167/77 96 10/08/17 16:04 98.0 67 20 158/80 98 Intake and Output 10/08/17 10/09/17 19:00 07:00 Intake Total 240 ml 1200 ml Output Total 650 ml 600 ml Balance -410 ml 600 ml Intake Oral 240 ml IV Total 1200 ml Output Urine Total 650 ml 600 ml # Bowel Movements 1 General Appearance: WD/WN HEENT: normocephalic, PERRL - left scelera unchagned Respiratory/Chest: chest wall non-tender, lungs clear Cardiovascular: normal peripheral pulses, normal rate, regular rhythm Abdomen: normal bowel sounds, soft, non tender Extremities: no cyanosis Skin: no rash Lymphatic: no neck adenopathy Microbiology Date/Time Source Procedure Growth Status 10/06/17 16:30 Nasal Nares MRSA Culture - Final NO METHICILLIN RESISTANT STAPH AUREUS... Complete 10/08/17 02:15 Urine,Clean Catch Urine Culture - Preliminary Gram Negative Bacillus 1 Resulted 10/06/17 16:30 Rectum VRE Culture - Final NO VANCOMYCIN RESISTANT ENTEROCOCCUS ... Complete Laboratory Tests 10/09/17 05:20: White Blood Count 13.2H, Red Blood Count 3.28L, Hemoglobin 10.0L, Hematocrit 30.7L, Mean Corpuscular Volume 94, Mean Corpuscular Hemoglobin 30.5, Mean Corpuscular Hemoglobin Concent 32.6, Red Cell Distribution Width 11.6, Platelet Count 465H, Mean Platelet Volume 5.8L, Neutrophils (%) (Auto) 69.8, Lymphocytes (%) (Auto) 17.2L, Monocytes (%) (Auto) 6.1, Eosinophils (%) (Auto) 6.2H, Basophils (%) (Auto) 0.8, Sodium Level 143, Potassium Level 4.1, Chloride Level 109H, Carbon Dioxide Level 27, Anion Gap 8, Blood Urea Nitrogen 29H, Creatinine 1.5H, Estimat Glomerular Filtration Rate 47.4, Glucose Level 162H, Calcium Level 8.7, Phosphorus Level 3.0, Magnesium Level 1.4L, Total Bilirubin 0.3, Aspartate Amino Transf (AST/SGOT) 14L, Alanine Aminotransferase (ALT/SGPT) 17, Alkaline Phosphatase 92, Total Protein 7.0, Albumin 2.0L, Globulin 5.0, Albumin/ Globulin Ratio 0.4L Current Medications Medications (Trade) Dose Ordered Sig/Leon Route PRN Reason Start Time Stop Time Status Last Admin Dose Admin Acetaminophen (Tylenol) 650 mg Q4H PRN ORAL fever 10/08/17 11:00 11/05/17 14:59 Al Hydroxide/Mg Hydroxide (Mylanta II) 30 ml Q6H PRN ORAL dyspepsia 10/08/17 09:00 11/05/17 14:59 Albuterol/ Ipratropium (Albuterol/ Ipratropium) 3 ml Q4H PRN HHN Shortness of Breath 10/08/17 11:00 10/11/17 14:59 Amlodipine Besylate (Norvasc) 2.5 mg DAILY ORAL 10/08/17 09:00 11/06/17 08:59 10/09/17 09:48 Ampicillin Sodium/ Sulbactam Sodium 3 gm/Sodium Chloride 110 ml @ 220 mls/hr Q6HR IVPB 10/09/17 13:30 10/16/17 13:29 Atorvastatin Calcium (Lipitor) 80 mg BEDTIME ORAL 10/08/17 21:00 11/05/17 20:59 10/08/17 20:51 Clonidine HCl (Catapres Tab) 0.1 mg Q4H PRN ORAL sbp more than 160 10/08/17 11:00 11/05/17 14:59 10/08/17 20:51 Dextrose (Dextrose 50%) STAT PRN IV Hypoglycemia 10/08/17 15:00 11/05/17 14:59 Erythromycin (Ilotycin) 1 applic STAT LEFT EYE 10/08/17 12:15 10/13/17 12:14 10/09/17 13:01 Finasteride (Proscar) 5 mg DAILY ORAL 10/08/17 09:00 11/06/17 08:59 10/09/17 09:48 Gabapentin (Neurontin) 300 mg BEDTIME ORAL 10/08/17 21:00 11/05/17 20:59 10/08/17 20:50 Heparin Sodium (Porcine) (Heparin 5000 units/ml) 5,000 units EVERY 12 HOURS SUBQ 10/08/17 09:00 11/05/17 20:59 10/09/17 09:50 Ketorolac Tromethamine (Toradol 30mg) 30 mg Q6H PRN IV moderate pain 4-6 10/08/17 09:00 10/11/17 14:59 Levothyroxine Sodium (Synthroid) 150 mcg ACBREAKFAST ORAL 10/09/17 06:30 11/07/17 06:29 10/09/17 05:48 Morphine Sulfate (Morphine Sulfate) 2 mg Q4H PRN IVP severe pain 7-10 10/08/17 11:00 10/13/17 14:59 Nitroglycerin (Ntg) 0.4 mg Q5M X 3 DOSES PRN SL Prn Chest Pain 10/08/17 09:00 11/05/17 14:59 Ondansetron HCl (Zofran) 4 mg Q6H PRN IVP Nausea & Vomiting 10/08/17 09:00 11/05/17 14:59 Polyethylene Glycol (Miralax) 17 gm HSPRN PRN ORAL Constipation 10/08/17 15:00 11/05/17 14:59 Sodium Chloride 1,000 ml @ 100 mls/hr Q10H IVLG 10/08/17 09:00 11/05/17 16:29 10/09/17 11:51 Tamsulosin HCl (Flomax) 0.4 mg BEDTIME ORAL 10/08/17 21:00 11/05/17 20:59 10/08/17 20:51 Temazepam (Restoril) 15 mg HSPRN PRN ORAL Insomnia 10/08/17 15:00 10/13/17 14:59 LUIS AMBROSIO Oct 09, 2017 13:26
[2017-10-09] MEDS: Ampicillin/Sulbactam Sod 3 GM in NS 110 ML IVPB SCH ×3 (13:31→23:58)
[2017-10-09 15:58] VITALS: BP 158/81
--- NOTE | 2017-10-09 17:45 | Consultation ---
DATE OF CONSULTATION: 10/09/2017 INFECTIOUS DISEASES CONSULTATION CONSULTING PHYSICIAN: Wagner Ramirez M.D. REFERRING PHYSICIAN: Devorah Moran M.D. REASON FOR CONSULTATION: Evaluation of patient for leukocytosis, possible sinusitis, antibiotic management. HISTORY OF PRESENT ILLNESS: The patient is a 62-year-old male with multiple medical problems who was admitted to this medical center due to the bleeding from the left eye. The patient mentioned during being taken care of at the long term, the patient's eye was traumatized. The patient at one point was seen in the [facility] and was discharged with some eye drops; however, apparently the patient's conditions worsened and because of that the patient now was brought to this medical center. The patient never had fever, chills, nausea, vomiting, headaches. CT scan of the head suggestive of possible polyps versus sinus mets and pansinusitis. Infectious Disease consultation has been requested for evaluation of the patient in view of the patient having persistent leukocytosis. PAST MEDICAL HISTORY: 1. Hypertension. 2. CVA. 3. Diabetes. 4. Hypothyroidism. 5. Hyperlipidemia. 6. History of CVA with left-sided weakness. 7. History of BPH. MEDICATIONS: Currently off of antibiotics. PHYSICAL EXAMINATION: VITAL SIGNS: Temperature 98, blood pressure 184/89, pulse 69, respiratory rate 20. HEENT: The patient has left subconjunctival bleed. No sinus headaches, tenderness over the sinuses. NECK: No lymphadenopathy. CHEST: Clear. HEART: S1 and S2. ABDOMEN: Soft. EXTREMITIES: The patient has a left heel wound. No evidence of infection. NEUROLOGIC: Awake and alert. LABORATORY DATA: White blood cells 13, hemoglobin 10, platelets 465. UA too numerous to count white blood cells, 15 to 20 red blood cells. BUN 29 and creatinine 1.9. ALT, AST and alkaline phosphatase unremarkable. Urine cultures growing gram-negative rods. RADIOLOGY: 1. Chest x-ray unremarkable. 2. CT of head and orbits shows preseptal bleed of the left orbit, left-sided . 3. Paranasal sinuses and mass under sphenoid sinus suggestive of . ASSESSMENT: 1. Leukocytosis. 2. Probable urinary tract infection. Urine culture shows gram-negative rods. Urinalysis showed pyuria. 3. Possible sinusitis. 4. Doubt mucormycosis in view of the patient's lack of symptoms and evidence of diabetic ketoacidosis. PLAN: 1. We will start the patient on IV Unasyn (probable urinary tract infection and sinusitis). 2. Monitor CBC. 3. Monitor BMP. 4. Monitor cultures (blood and urine). 5. Recommend Ophthalmology and ENT consultation. 6. Wound care of the left heel ( no evidence of gross infection). Based on the patient's clinical course and laboratories, we will do further recommendation. Thank you, Dr. Moran, for allowing me to participate in the care of this patient. I will follow the patient with you during this hospitalization. Wagner Ramirez M.D. DR: Dulce JOB#: [id number] CC:
[2017-10-09 19:55] VITALS: BP 177/87
[2017-10-09] MEDS: Tamsulosin 0.4mg cap ORAL SCH (20:29)
[2017-10-09] MEDS: Atorvastatin 80mg tab ORAL SCH (20:29)
[2017-10-10] VITALS: BP 157/88
[2017-10-10 04:00] VITALS: BP 149/87
[2017-10-10] MEDS: Ampicillin/Sulbactam Sod 3 GM in NS 110 ML IVPB SCH ×3 (05:02→17:36)
--- NOTE | 2017-10-10 07:58 | General Progress Note ---
Assessment/Plan Problem List: (1) Hypothyroid ICD Codes: E03.9 - Hypothyroidism, unspecified SNOMED: 31833010 (2) Ruptured globe of left eye ICD Codes: S05.32XA - Ocular laceration without prolapse or loss of intraocular tissue, left eye, initial encounter SNOMED: 098432640 Qualifiers: Qualified Codes: S05.32XA - Ocular laceration without prolapse or loss of intraocular tissue, left eye, initial encounter (3) Hyperkalemia ICD Codes: E87.5 - Hyperkalemia SNOMED: 08569558 (4) ANGEL (acute kidney injury) ICD Codes: N17.9 - Acute kidney failure, unspecified SNOMED: 67389538 (5) Subconjunctival hemorrhage of left eye ICD Codes: H11.32 - Conjunctival hemorrhage, left eye SNOMED: 05640538 (6) Hypoglycemia ICD Codes: E16.2 - Hypoglycemia, unspecified SNOMED: 358974411 Assessment/Plan continue Levothyroxine 150 mcg daily repeat TSH in 4-6 weeks as OP no need for scheduled insulin for now add Januvia 50 mg daily continue NISS Subjective Allergies: Coded Allergies: No Known Allergies (Unverified , 10/07/17) All Systems: reviewed and negative except above Subjective admitted with left eye hemorrhage and leukocytosis hx of hypothyroidism on levothyroxine 200 mcg as OP TSH is suppressed LT4 dosage reduced to 150 mcg daily hx of DM on Levemir and Novolog as OP glucose remained stable during stay w/o scheduled insulin Objective Last 24 Hour Vital Signs Date Time Temp Pulse Resp B/P (MAP) Pulse Ox O2 Delivery O2 Flow Rate FiO2 10/10/17 07:15 70 16 Room Air 21 10/10/17 04:00 98.2 68 18 149/87 97 10/10/17 04:00 97 Room Air 10/10/17 00:00 98.4 70 19 157/88 97 10/10/17 00:00 97 Room Air 10/09/17 20:29 177/87 10/09/17 20:09 96 Room Air 10/09/17 19:55 98.1 65 18 177/87 96 10/09/17 19:15 79 16 Room Air 21 10/09/17 15:58 98.2 63 20 158/81 98 10/09/17 15:58 Room Air 10/09/17 11:42 98.0 69 20 184/89 96 10/09/17 11:42 Room Air 10/09/17 09:48 64 187/91 10/09/17 08:28 97.8 64 20 176/90 98 10/09/17 08:28 Room Air 10/09/17 07:55 72 16 Room Air 21 Intake and Output 10/09/17 10/10/17 19:00 07:00 Intake Total 1640 ml 1170 ml Output Total 450 ml 725 ml Balance 1190 ml 445 ml Intake Oral 480 ml IV Total 1160 ml 1170 ml Output Urine Total 450 ml 725 ml Laboratory Tests 10/10/17 06:45: White Blood Count [Pending], Red Blood Count [Pending], Hemoglobin [Pending], Hematocrit [Pending], Mean Corpuscular Volume [Pending], Mean Corpuscular Hemoglobin [Pending], Mean Corpuscular Hemoglobin Concent [Pending], Red Cell Distribution Width [Pending], Platelet Count [Pending], Mean Platelet Volume [ Pending], Neutrophils (%) (Auto) [Pending], Lymphocytes (%) (Auto) [Pending], Monocytes (%) (Auto) [Pending], Eosinophils (%) (Auto) [Pending], Basophils (%) (Auto) [Pending], Sodium Level [Pending], Potassium Level [Pending], Chloride Level [Pending], Carbon Dioxide Level [Pending], Blood Urea Nitrogen [Pending], Creatinine [Pending], Estimat Glomerular Filtration Rate [Pending], Glucose Level [Pending], Calcium Level [Pending], Phosphorus Level [Pending], Magnesium Level [Pending], Total Bilirubin [Pending], Aspartate Amino Transf (AST/SGOT) [ Pending], Alanine Aminotransferase (ALT/SGPT) [Pending], Alkaline Phosphatase [ Pending], Total Protein [Pending], Albumin [Pending], Globulin [Pending] Height (Feet): 5 Height (Inches): 9.00 Weight (Pounds): 228 General Appearance: no apparent distress Neck: normal alignment Cardiovascular: regular rhythm Respiratory/Chest: lungs clear Abdomen: normal bowel sounds Edema: 1+ Arm (L), 1+ Arm (R), 1+ Leg (L), 1+ Leg (R), 1+ Pedal (L), 1+ Pedal ( R), 1+ Generalized Objective Current Medications Medications (Trade) Dose Ordered Sig/Leon Route PRN Reason Start Time Stop Time Status Last Admin Dose Admin Acetaminophen (Tylenol) 650 mg Q4H PRN ORAL fever 10/08/17 11:00 11/05/17 14:59 Al Hydroxide/Mg Hydroxide (Mylanta II) 30 ml Q6H PRN ORAL dyspepsia 10/08/17 09:00 11/05/17 14:59 Albuterol/ Ipratropium (Albuterol/ Ipratropium) 3 ml Q4H PRN HHN Shortness of Breath 10/08/17 11:00 10/11/17 14:59 Amlodipine Besylate (Norvasc) 2.5 mg DAILY ORAL 10/08/17 09:00 11/06/17 08:59 10/09/17 09:48 Ampicillin Sodium/ Sulbactam Sodium 3 gm/Sodium Chloride 110 ml @ 220 mls/hr Q6HR IVPB 10/09/17 13:30 10/16/17 13:29 10/10/17 05:02 Atorvastatin Calcium (Lipitor) 80 mg BEDTIME ORAL 10/08/17 21:00 11/05/17 20:59 10/09/17 20:29 Clonidine HCl (Catapres Tab) 0.1 mg Q4H PRN ORAL sbp more than 160 10/08/17 11:00 11/05/17 14:59 10/09/17 20:29 Dextrose (Dextrose 50%) STAT PRN IV Hypoglycemia 10/08/17 15:00 11/05/17 14:59 Erythromycin (Ilotycin) 1 applic STAT LEFT EYE 10/08/17 12:15 10/13/17 12:14 10/09/17 13:01 Finasteride (Proscar) 5 mg DAILY ORAL 10/08/17 09:00 11/06/17 08:59 10/09/17 09:48 Gabapentin (Neurontin) 300 mg BEDTIME ORAL 10/08/17 21:00 11/05/17 20:59 10/09/17 20:29 Heparin Sodium (Porcine) (Heparin 5000 units/ml) 5,000 units EVERY 12 HOURS SUBQ 10/08/17 09:00 11/05/17 20:59 10/09/17 20:30 Ketorolac Tromethamine (Toradol 30mg) 30 mg Q6H PRN IV moderate pain 4-6 10/08/17 09:00 10/11/17 14:59 Levothyroxine Sodium (Synthroid) 150 mcg ACBREAKFAST ORAL 10/09/17 06:30 11/07/17 06:29 10/10/17 05:31 Morphine Sulfate (Morphine Sulfate) 2 mg Q4H PRN IVP severe pain 7-10 10/08/17 11:00 10/13/17 14:59 Nitroglycerin (Ntg) 0.4 mg Q5M X 3 DOSES PRN SL Prn Chest Pain 10/08/17 09:00 11/05/17 14:59 Ondansetron HCl (Zofran) 4 mg Q6H PRN IVP Nausea & Vomiting 10/08/17 09:00 11/05/17 14:59 Polyethylene Glycol (Miralax) 17 gm HSPRN PRN ORAL Constipation 10/08/17 15:00 11/05/17 14:59 Sodium Chloride 1,000 ml @ 100 mls/hr Q10H IVLG 10/08/17 09:00 11/05/17 16:29 10/09/17 23:58 Tamsulosin HCl (Flomax) 0.4 mg BEDTIME ORAL 10/08/17 21:00 11/05/17 20:59 10/09/17 20:29 Temazepam (Restoril) 15 mg HSPRN PRN ORAL Insomnia 10/08/17 15:00 10/13/17 14:59 Item Value Date Time Bedside Blood Glucose 137 mg/dl H 10/10/17 0608 Bedside Blood Glucose 161 mg/dl H 10/09/17 2103 Bedside Blood Glucose 158 mg/dl H 10/09/17 1629 Bedside Blood Glucose 151 mg/dl H 10/09/17 1154 XIMENA LENTZ Oct 10, 2017 07:58
[2017-10-10 08:00] VITALS: BP 148/74
[2017-10-10] MEDS: sitaGLIPtin 50mg tab ORAL SCH (08:00)
[2017-10-10 08:36] LABS: ALANINE AMINOTRANSFERASE 15 U/L (12-78); ALBUMIN 2.1 G/DL (3.4-5.0); ALBUMIN/GLOBULIN RATIO 0.4 (1.0-2.7); ALKALINE PHOSPHATASE 94 U/L (46-116); ANION GAP 13 mmol/L (5-15); ASPARTATE AMINO TRANSFERASE 28 U/L (15-37); BILIRUBIN,TOTAL 0.3 MG/DL (0.2-1.0); BLOOD UREA NITROGEN 22 mg/dL (7-18); CALCIUM 8.8 MG/DL (8.5-10.1); CARBON DIOXIDE 22 MMOL/L (21-32); CHLORIDE 110 MMOL/L (98-107); CREATININE 1.4 MG/DL (0.55-1.30); PHOSPHORUS 3.5 MG/DL (2.5-4.9); POTASSIUM 3.9 MMOL/L (3.5-5.1); SODIUM 145 MMOL/L (136-145)
[2017-10-10] MEDS: Heparin 5000 units/ml inj SUBQ SCH ×2 (09:37→21:28)
--- NOTE | 2017-10-10 11:28 | Infectious Diseases Prog Note ---
Assessment/Plan Assessment/Plan ASSESSMENT: Leukocytosis. UTI EColi US : left perinephric fluid, nonspecific pyuria.+ Possible sinusitis. Doubt mucormycosis in view of the patient's lack of symptoms and evidence of diabetic ketoacidosis CT: Paranasal sinuses and mass in sphenoid sinus suggestiv lt heel Wnd not infected sub conj bleed CT: CT of head and orbits shows preseptal bleed of the left orbit Hypertension CVA. Diabetes. Hypothyroidism. Hyperlipidemia. History of CVA with left-sided weakness. History of BPH PLAN: We will start the patient on IV Unasyn d# 2 / 14 (probable urinary tract infection and sinusitis). upon DC will change to Augmentin Monitor CBC Monitor BMP. Monitor cultures (blood ) reportedly Ophthalmology saw pt in ER and cleared for DC Rec ENT consultation. Subjective Allergies: Coded Allergies: No Known Allergies (Unverified , 10/07/17) Subjective afebrile Objective Vital Signs Last 24 Hour Vital Signs Date Time Temp Pulse Resp B/P (MAP) Pulse Ox O2 Delivery O2 Flow Rate FiO2 10/10/17 09:35 64 148/74 10/10/17 08:00 98.1 64 20 148/74 98 10/10/17 07:15 70 16 Room Air 21 10/10/17 04:00 98.2 68 18 149/87 97 10/10/17 04:00 97 Room Air 10/10/17 00:00 98.4 70 19 157/88 97 10/10/17 00:00 97 Room Air 10/09/17 20:29 177/87 10/09/17 20:09 96 Room Air 10/09/17 19:55 98.1 65 18 177/87 96 10/09/17 19:15 79 16 Room Air 21 10/09/17 15:58 98.2 63 20 158/81 98 10/09/17 15:58 Room Air 10/09/17 11:42 98.0 69 20 184/89 96 10/09/17 11:42 Room Air Height (Feet): 5 Height (Inches): 9.00 Weight (Pounds): 228 HEENT: anicteric Respiratory/Chest: no respiratory distress Cardiovascular: regular rhythm Abdomen: no mass Microbiology Date/Time Source Procedure Growth Status 10/08/17 02:15 Urine,Clean Catch Urine Culture - Final Escherichia Coli Complete Laboratory Tests Test 10/10/17 06:45 White Blood Count Pending Red Blood Count Pending Hemoglobin Pending Hematocrit Pending Mean Corpuscular Volume Pending Mean Corpuscular Hemoglobin Pending Mean Corpuscular Hemoglobin Concent Pending Red Cell Distribution Width Pending Platelet Count Pending Mean Platelet Volume Pending Neutrophils (%) (Auto) Pending Lymphocytes (%) (Auto) Pending Monocytes (%) (Auto) Pending Eosinophils (%) (Auto) Pending Basophils (%) (Auto) Pending Sodium Level 145 MMOL/L (136-145) Potassium Level 3.9 MMOL/L (3.5-5.1) Chloride Level 110 MMOL/L (98-107) H Carbon Dioxide Level 22 MMOL/L (21-32) Anion Gap 13 mmol/L (5-15) Blood Urea Nitrogen 22 mg/dL (7-18) H Creatinine 1.4 MG/DL (0.55-1.30) H Estimat Glomerular Filtration Rate 51.4 mL/min (>60) Glucose Level 115 MG/DL (74-106) H Calcium Level 8.8 MG/DL (8.5-10.1) Phosphorus Level 3.5 MG/DL (2.5-4.9) Magnesium Level 1.3 MG/DL (1.8-2.4) L Total Bilirubin 0.3 MG/DL (0.2-1.0) Aspartate Amino Transf (AST/SGOT) 28 U/L (15-37) Alanine Aminotransferase (ALT/SGPT) 15 U/L (12-78) Alkaline Phosphatase 94 U/L (46-116) Total Protein 7.0 G/DL (6.4-8.2) Albumin 2.1 G/DL (3.4-5.0) L Globulin 4.9 g/dL Albumin/Globulin Ratio 0.4 (1.0-2.7) L Current Medications Medications (Trade) Dose Ordered Sig/Leon Route PRN Reason Start Time Stop Time Status Last Admin Dose Admin Acetaminophen (Tylenol) 650 mg Q4H PRN ORAL fever 10/08/17 11:00 11/05/17 14:59 Al Hydroxide/Mg Hydroxide (Mylanta II) 30 ml Q6H PRN ORAL dyspepsia 10/08/17 09:00 11/05/17 14:59 Albuterol/ Ipratropium (Albuterol/ Ipratropium) 3 ml Q4H PRN HHN Shortness of Breath 10/08/17 11:00 10/11/17 14:59 Amlodipine Besylate (Norvasc) 2.5 mg DAILY ORAL 10/08/17 09:00 11/06/17 08:59 10/10/17 09:35 Ampicillin Sodium/ Sulbactam Sodium 3 gm/Sodium Chloride 110 ml @ 220 mls/hr Q6HR IVPB 10/09/17 13:30 10/16/17 13:29 10/10/17 05:02 Atorvastatin Calcium (Lipitor) 80 mg BEDTIME ORAL 10/08/17 21:00 11/05/17 20:59 10/09/17 20:29 Clonidine HCl (Catapres Tab) 0.1 mg Q4H PRN ORAL sbp more than 160 10/08/17 11:00 11/05/17 14:59 10/09/17 20:29 Dextrose (Dextrose 50%) STAT PRN IV Hypoglycemia 10/08/17 15:00 11/05/17 14:59 Erythromycin (Ilotycin) 1 applic STAT LEFT EYE 10/08/17 12:15 10/13/17 12:14 10/09/17 13:01 Finasteride (Proscar) 5 mg DAILY ORAL 10/08/17 09:00 11/06/17 08:59 10/10/17 09:35 Gabapentin (Neurontin) 300 mg BEDTIME ORAL 10/08/17 21:00 11/05/17 20:59 10/09/17 20:29 Heparin Sodium (Porcine) (Heparin 5000 units/ml) 5,000 units EVERY 12 HOURS SUBQ 10/08/17 09:00 11/05/17 20:59 10/10/17 09:37 Ketorolac Tromethamine (Toradol 30mg) 30 mg Q6H PRN IV moderate pain 4-6 10/08/17 09:00 10/11/17 14:59 Levothyroxine Sodium (Synthroid) 150 mcg ACBREAKFAST ORAL 10/09/17 06:30 11/07/17 06:29 10/10/17 05:31 Morphine Sulfate (Morphine Sulfate) 2 mg Q4H PRN IVP severe pain 7-10 10/08/17 11:00 10/13/17 14:59 Nitroglycerin (Ntg) 0.4 mg Q5M X 3 DOSES PRN SL Prn Chest Pain 10/08/17 09:00 11/05/17 14:59 Ondansetron HCl (Zofran) 4 mg Q6H PRN IVP Nausea & Vomiting 10/08/17 09:00 11/05/17 14:59 Polyethylene Glycol (Miralax) 17 gm HSPRN PRN ORAL Constipation 10/08/17 15:00 11/05/17 14:59 Sitagliptin Phosphate (Januvia) 50 mg ACBREAKFAST ORAL 10/10/17 08:00 11/09/17 07:59 10/10/17 08:00 Sodium Chloride 1,000 ml @ 100 mls/hr Q10H IVLG 10/08/17 09:00 11/05/17 16:29 10/09/17 23:58 Tamsulosin HCl (Flomax) 0.4 mg BEDTIME ORAL 10/08/17 21:00 11/05/17 20:59 10/09/17 20:29 Temazepam (Restoril) 15 mg HSPRN PRN ORAL Insomnia 10/08/17 15:00 10/13/17 14:59 ZAY BAUM M.D. Oct 10, 2017 11:28
[2017-10-10 12:00] VITALS: BP 163/76
[2017-10-10] MEDS: Erythromycin Opth Ointment 3.5gm LEFT EYE SCH (12:35)
[2017-10-10 13:35] LABS: BASOPHILS % (AUTO) 0.8 % (0.0-2.0); EOSINOPHILS % (AUTO) 5.3 % (0.0-3.0); HEMOGLOBIN 10.9 G/DL (14.2-18.0); LYMPHOCYTES % (AUTO) 14.3 % (20.0-45.0); MEAN CORPUSCULAR VOLUME 93 FL (80-99); NEUTROPHILS % (AUTO) 73.6 % (45.0-75.0); PLATELET COUNT 424 K/UL (150-450); RED BLOOD COUNT 3.67 M/UL (4.70-6.10); RED CELL DISTRIBUTION WIDTH 11.8 % (11.6-14.8); WHITE BLOOD COUNT 12.1 K/UL (4.8-10.8)
[2017-10-10 16:00] VITALS: BP 157/90
[2017-10-10] MEDS ORDERED: MIRALAX17 G2 ORAL ×2 (16:55→17:04)
[2017-10-10] MEDS ORDERED: JANUVIA50 MG ORAL ×2 (16:55→17:03)
[2017-10-10] MEDS ORDERED: RESTORIL15 MG ORAL (16:56)
[2017-10-10] MEDS ORDERED: AUGMENTIN 875-1 EAC1 ORAL ×2 (16:59→17:04)
--- NOTE | 2017-10-10 18:35 | Pulmonology Progress Note ---
Assessment/Plan Problems: (1) ANGEL (acute kidney injury) (2) Hyperkalemia (3) Subconjunctival hemorrhage of left eye Assessment/Plan iv fluids check electrolytes Drapery Sewer Hand saw the pt in ER and cleared or discharge. check bmp in am improivng dc to alf Subjective ROS Limited/Unobtainable: No Constitutional: Reports: no symptoms HEENT: Repors: no symptoms Respiratory: Reports: no symptoms Allergies: Coded Allergies: No Known Allergies (Unverified , 10/07/17) Objective Last 24 Hour Vital Signs Date Time Temp Pulse Resp B/P (MAP) Pulse Ox O2 Delivery O2 Flow Rate FiO2 10/10/17 16:00 97.5 71 20 157/90 97 10/10/17 12:00 97.7 61 20 163/76 97 10/10/17 09:35 64 148/74 10/10/17 08:00 98.1 64 20 148/74 98 10/10/17 07:15 70 16 Room Air 21 10/10/17 04:00 98.2 68 18 149/87 97 10/10/17 04:00 97 Room Air 10/10/17 00:00 98.4 70 19 157/88 97 10/10/17 00:00 97 Room Air 10/09/17 20:29 177/87 10/09/17 20:09 96 Room Air 10/09/17 19:55 98.1 65 18 177/87 96 10/09/17 19:15 79 16 Room Air 21 Intake and Output 10/09/17 10/10/17 19:00 07:00 Intake Total 1640 ml 1170 ml Output Total 450 ml 725 ml Balance 1190 ml 445 ml Intake Oral 480 ml IV Total 1160 ml 1170 ml Output Urine Total 450 ml 725 ml General Appearance: WD/WN HEENT: normocephalic, atraumatic Respiratory/Chest: chest wall non-tender, normal breath sounds Cardiovascular: normal rate Abdomen: normal bowel sounds Genitourinary: normal external genitalia Extremities: no clubbing Neurologic/Psychiatric: lining baster II-XII grossly normal Microbiology Date/Time Source Procedure Growth Status 10/08/17 02:15 Urine,Clean Catch Urine Culture - Final Escherichia Coli Complete Laboratory Tests 10/10/17 06:45: Sodium Level 145, Potassium Level 3.9, Chloride Level 110H, Carbon Dioxide Level 22, Anion Gap 13, Blood Urea Nitrogen 22H, Creatinine 1.4H, Estimat Glomerular Filtration Rate 51.4, Glucose Level 115H, Calcium Level 8.8, Phosphorus Level 3.5, Magnesium Level 1.3L, Total Bilirubin 0.3, Aspartate Amino Transf (AST/SGOT) 28, Alanine Aminotransferase (ALT/SGPT) 15, Alkaline Phosphatase 94, Total Protein 7.0, Albumin 2.1L, Globulin 4.9, Albumin/Globulin Ratio 0.4L 10/10/17 13:10: White Blood Count 12.1H, Red Blood Count 3.67L, Hemoglobin 10.9L, Hematocrit 34.0L, Mean Corpuscular Volume 93, Mean Corpuscular Hemoglobin 29.8, Mean Corpuscular Hemoglobin Concent 32.2, Red Cell Distribution Width 11.8, Platelet Count 424, Mean Platelet Volume 5.7L, Neutrophils (%) (Auto) 73.6, Lymphocytes ( %) (Auto) 14.3L, Monocytes (%) (Auto) 6.0, Eosinophils (%) (Auto) 5.3H, Basophils (%) (Auto) 0.8 Current Medications Medications (Trade) Dose Ordered Sig/Leon Route PRN Reason Start Time Stop Time Status Last Admin Dose Admin Acetaminophen (Tylenol) 650 mg Q4H PRN ORAL fever 10/08/17 11:00 11/05/17 14:59 Al Hydroxide/Mg Hydroxide (Mylanta II) 30 ml Q6H PRN ORAL dyspepsia 10/08/17 09:00 11/05/17 14:59 Albuterol/ Ipratropium (Albuterol/ Ipratropium) 3 ml Q4H PRN HHN Shortness of Breath 10/08/17 11:00 10/11/17 14:59 Amlodipine Besylate (Norvasc) 2.5 mg DAILY ORAL 10/08/17 09:00 11/06/17 08:59 10/10/17 09:35 Ampicillin Sodium/ Sulbactam Sodium 3 gm/Sodium Chloride 110 ml @ 220 mls/hr Q6HR IVPB 10/09/17 13:30 10/16/17 13:29 10/10/17 17:36 Atorvastatin Calcium (Lipitor) 80 mg BEDTIME ORAL 10/08/17 21:00 2/19/18 20:59 10/09/17 20:29 Clonidine HCl (Catapres Tab) 0.1 mg Q4H PRN ORAL sbp more than 160 10/08/17 11:00 11/05/17 14:59 10/09/17 20:29 Dextrose (Dextrose 50%) STAT PRN IV Hypoglycemia 10/08/17 15:00 11/05/17 14:59 Erythromycin (Ilotycin) 1 applic STAT LEFT EYE 10/08/17 12:15 10/13/17 12:14 10/10/17 12:35 Finasteride (Proscar) 5 mg DAILY ORAL 10/08/17 09:00 11/06/17 08:59 10/10/17 09:35 Gabapentin (Neurontin) 300 mg BEDTIME ORAL 10/08/17 21:00 11/05/17 20:59 10/09/17 20:29 Heparin Sodium (Porcine) (Heparin 5000 units/ml) 5,000 units EVERY 12 HOURS SUBQ 10/08/17 09:00 11/05/17 20:59 10/10/17 09:37 Ketorolac Tromethamine (Toradol 30mg) 30 mg Q6H PRN IV moderate pain 4-6 10/08/17 09:00 10/11/17 14:59 Levothyroxine Sodium (Synthroid) 150 mcg ACBREAKFAST ORAL 10/09/17 06:30 11/07/17 06:29 10/10/17 05:31 Morphine Sulfate (Morphine Sulfate) 2 mg Q4H PRN IVP severe pain 7-10 10/08/17 11:00 10/13/17 14:59 Nitroglycerin (Ntg) 0.4 mg Q5M X 3 DOSES PRN SL Prn Chest Pain 10/08/17 09:00 11/05/17 14:59 Ondansetron HCl (Zofran) 4 mg Q6H PRN IVP Nausea & Vomiting 10/08/17 09:00 11/05/17 14:59 Polyethylene Glycol (Miralax) 17 gm HSPRN PRN ORAL Constipation 10/08/17 15:00 11/05/17 14:59 Sitagliptin Phosphate (Januvia) 50 mg ACBREAKFAST ORAL 10/10/17 08:00 11/09/17 07:59 10/10/17 08:00 Sodium Chloride 1,000 ml @ 100 mls/hr Q10H IVLG 10/08/17 09:00 11/05/17 16:29 10/10/17 11:25 Tamsulosin HCl (Flomax) 0.4 mg BEDTIME ORAL 10/08/17 21:00 11/05/17 20:59 10/09/17 20:29 Temazepam (Restoril) 15 mg HSPRN PRN ORAL Insomnia 10/08/17 15:00 10/13/17 14:59 LUIS AMBROSIO Oct 10, 2017 18:35
[2017-10-10 19:59] VITALS: BP 162/77
[2017-10-10] MEDS: Atorvastatin 80mg tab ORAL SCH (21:28)
[2017-10-10] MEDS: Tamsulosin 0.4mg cap ORAL SCH (21:28)
[2017-10-11 00:23] VITALS: BP 166/88
[2017-10-11 04:00] VITALS: BP 163/84
[2017-10-11] MEDS: Ampicillin/Sulbactam Sod 3 GM in NS 110 ML IVPB SCH ×5 (05:39→18:12)
[2017-10-11] MEDS: sitaGLIPtin 50mg tab ORAL SCH (05:41)
[2017-10-11 08:00] VITALS: BP 161/90
[2017-10-11] MEDS: Heparin 5000 units/ml inj SUBQ SCH (08:40)
--- NOTE | 2017-10-11 09:31 | General Progress Note ---
Assessment/Plan Problem List: (1) Hypothyroid ICD Codes: E03.9 - Hypothyroidism, unspecified SNOMED: 74663268 (2) Ruptured globe of left eye ICD Codes: S05.32XA - Ocular laceration without prolapse or loss of intraocular tissue, left eye, initial encounter SNOMED: 929744360 Qualifiers: Qualified Codes: S05.32XA - Ocular laceration without prolapse or loss of intraocular tissue, left eye, initial encounter (3) Hyperkalemia ICD Codes: E87.5 - Hyperkalemia SNOMED: 76019562 (4) ANGEL (acute kidney injury) ICD Codes: N17.9 - Acute kidney failure, unspecified SNOMED: 20967660 (5) Subconjunctival hemorrhage of left eye ICD Codes: H11.32 - Conjunctival hemorrhage, left eye SNOMED: 34570698 (6) Hypoglycemia ICD Codes: E16.2 - Hypoglycemia, unspecified SNOMED: 387208632 Assessment/Plan continue Levothyroxine 150 mcg daily repeat TSH in 4-6 weeks as OP no need for scheduled insulin for now continue Januvia 50 mg daily continue NISS Subjective Allergies: Coded Allergies: No Known Allergies (Unverified , 10/07/17) All Systems: reviewed and negative except above Subjective events noted Objective Last 24 Hour Vital Signs Date Time Temp Pulse Resp B/P (MAP) Pulse Ox O2 Delivery O2 Flow Rate FiO2 10/11/17 08:39 70 161/90 10/11/17 08:00 97.7 70 20 161/90 97 10/11/17 06:07 163/84 10/11/17 04:00 98.1 66 19 163/84 98 10/11/17 00:23 98.1 86 18 166/88 96 Room Air 10/10/17 22:15 188/86 10/10/17 20:13 78 18 Room Air 21 10/10/17 19:59 98.1 82 19 162/77 97 10/10/17 16:00 97.5 71 20 157/90 97 10/10/17 12:00 97.7 61 20 163/76 97 10/10/17 09:35 64 148/74 Intake and Output 10/10/17 10/11/17 19:00 07:00 Intake Total 1380 ml 310 ml Output Total 550 ml Balance 830 ml 310 ml Intake Oral 480 ml 310 ml IV Total 900 ml Output Urine Total 550 ml # Voids 2 # Bowel Movements 2 Laboratory Tests 10/10/17 13:10: White Blood Count 12.1H, Red Blood Count 3.67L, Hemoglobin 10.9L, Hematocrit 34.0L, Mean Corpuscular Volume 93, Mean Corpuscular Hemoglobin 29.8, Mean Corpuscular Hemoglobin Concent 32.2, Red Cell Distribution Width 11.8, Platelet Count 424, Mean Platelet Volume 5.7L, Neutrophils (%) (Auto) 73.6, Lymphocytes ( %) (Auto) 14.3L, Monocytes (%) (Auto) 6.0, Eosinophils (%) (Auto) 5.3H, Basophils (%) (Auto) 0.8 Height (Feet): 5 Height (Inches): 9.00 Weight (Pounds): 228 General Appearance: no apparent distress Neck: normal alignment Cardiovascular: normal rate Respiratory/Chest: lungs clear Abdomen: normal bowel sounds Objective Current Medications Medications (Trade) Dose Ordered Sig/Leon Route PRN Reason Start Time Stop Time Status Last Admin Dose Admin Acetaminophen (Tylenol) 650 mg Q4H PRN ORAL fever 10/08/17 11:00 11/05/17 14:59 Al Hydroxide/Mg Hydroxide (Mylanta II) 30 ml Q6H PRN ORAL dyspepsia 10/08/17 09:00 11/05/17 14:59 Albuterol/ Ipratropium (Albuterol/ Ipratropium) 3 ml Q4H PRN HHN Shortness of Breath 10/08/17 11:00 10/11/17 14:59 Amlodipine Besylate (Norvasc) 2.5 mg DAILY ORAL 10/08/17 09:00 11/06/17 08:59 10/11/17 08:39 Ampicillin Sodium/ Sulbactam Sodium 3 gm/Sodium Chloride 110 ml @ 220 mls/hr Q6HR IVPB 10/09/17 13:30 10/16/17 13:29 10/10/17 17:36 Atorvastatin Calcium (Lipitor) 80 mg BEDTIME ORAL 10/08/17 21:00 11/05/17 20:59 10/10/17 21:28 Clonidine HCl (Catapres Tab) 0.1 mg Q4H PRN ORAL sbp more than 160 10/08/17 11:00 11/05/17 14:59 10/11/17 06:07 Dextrose (Dextrose 50%) STAT PRN IV Hypoglycemia 10/08/17 15:00 11/05/17 14:59 Erythromycin (Ilotycin) 1 applic STAT LEFT EYE 10/08/17 12:15 10/13/17 12:14 10/10/17 12:35 Finasteride (Proscar) 5 mg DAILY ORAL 10/08/17 09:00 11/06/17 08:59 10/11/17 08:39 Gabapentin (Neurontin) 300 mg BEDTIME ORAL 10/08/17 21:00 11/05/17 20:59 10/10/17 21:28 Heparin Sodium (Porcine) (Heparin 5000 units/ml) 5,000 units EVERY 12 HOURS SUBQ 10/08/17 09:00 11/05/17 20:59 10/11/17 08:40 Ketorolac Tromethamine (Toradol 30mg) 30 mg Q6H PRN IV moderate pain 4-6 10/08/17 09:00 10/11/17 14:59 Levothyroxine Sodium (Synthroid) 150 mcg ACBREAKFAST ORAL 10/09/17 06:30 11/07/17 06:29 10/11/17 05:40 Morphine Sulfate (Morphine Sulfate) 2 mg Q4H PRN IVP severe pain 7-10 10/08/17 11:00 10/13/17 14:59 Nitroglycerin (Ntg) 0.4 mg Q5M X 3 DOSES PRN SL Prn Chest Pain 10/08/17 09:00 11/05/17 14:59 Ondansetron HCl (Zofran) 4 mg Q6H PRN IVP Nausea & Vomiting 10/08/17 09:00 11/05/17 14:59 Polyethylene Glycol (Miralax) 17 gm HSPRN PRN ORAL Constipation 10/08/17 15:00 11/05/17 14:59 Sitagliptin Phosphate (Januvia) 50 mg ACBREAKFAST ORAL 10/10/17 08:00 11/09/17 07:59 10/11/17 05:41 Sodium Chloride 1,000 ml @ 100 mls/hr Q10H IVLG 10/08/17 09:00 11/05/17 16:29 10/10/17 11:25 Tamsulosin HCl (Flomax) 0.4 mg BEDTIME ORAL 10/08/17 21:00 11/05/17 20:59 10/10/17 21:28 Temazepam (Restoril) 15 mg HSPRN PRN ORAL Insomnia 10/08/17 15:00 10/13/17 14:59 Item Value Date Time Bedside Blood Glucose 122 mg/dl H 10/11/17 0618 Bedside Blood Glucose 129 mg/dl H 10/10/17 2100 Bedside Blood Glucose 164 mg/dl H 10/10/17 1637 Bedside Blood Glucose 116 mg/dl 10/10/17 1132 Bedside Blood Glucose 137 mg/dl H 10/10/17 0608 XIMENA LENTZ Oct 11, 2017 09:31
[2017-10-11 12:00] VITALS: BP 154/92
[2017-10-11] MEDS: Erythromycin Opth Ointment 3.5gm LEFT EYE SCH (12:10)
[2017-10-11] MEDS ORDERED: HydrALAZINE 25mg tab ORAL PRN (13:15)
[2017-10-11] MEDS ORDERED: cloNIDine 0.2mg Tab ORAL ONE (14:30)
[2017-10-11 16:00] VITALS: BP 158/76
[2017-10-11] MEDS ORDERED: LORazepam Inj 2mg/ml 1ml IV ONE (16:40)
--- NOTE | 2017-10-11 16:55 | Pulmonology Progress Note ---
Assessment/Plan Problems: (1) ANGEL (acute kidney injury) (2) Hyperkalemia (3) Subconjunctival hemorrhage of left eye Assessment/Plan improving iv fluids check electrolytes check bmp in am monitor BP dc to [facility] Subjective ROS Limited/Unobtainable: No Allergies: Coded Allergies: No Known Allergies (Unverified , 10/07/17) Objective Last 24 Hour Vital Signs Date Time Temp Pulse Resp B/P (MAP) Pulse Ox O2 Delivery O2 Flow Rate FiO2 10/11/17 16:00 96.8 62 19 158/76 97 10/11/17 14:34 182/91 10/11/17 13:20 165/85 10/11/17 12:00 97.7 63 21 154/92 98 10/11/17 10:38 163/77 10/11/17 09:22 84 18 Room Air 21 10/11/17 08:39 70 161/90 10/11/17 08:00 97.7 70 20 161/90 97 10/11/17 06:07 163/84 10/11/17 04:00 98.1 66 19 163/84 98 10/11/17 00:23 98.1 86 18 166/88 96 Room Air 10/10/17 22:15 188/86 10/10/17 20:13 78 18 Room Air 21 10/10/17 19:59 98.1 82 19 162/77 97 Intake and Output 10/10/17 10/11/17 19:00 07:00 Intake Total 1380 ml 310 ml Output Total 550 ml Balance 830 ml 310 ml Intake Oral 480 ml 310 ml IV Total 900 ml Output Urine Total 550 ml # Voids 2 # Bowel Movements 2 Objective General Appearance: wn/wd/wh Lines, tubes and drains: peripheral HEENT: normocephalic, atraumatic Neck: non-tender, normal alignment Respiratory/Chest: chest wall non-tender, lungs clear Breasts: no masses Cardiovascular/Chest: normal peripheral pulses Abdomen: normal bowel sounds, non tender Genitourinary/Rectal: normal genital exam, normal rectal exam Extremities: normal range of motion Skin Exam: normal pigmentation Microbiology Date/Time Source Procedure Growth Status 10/09/17 15:15 Blood Blood Culture - Preliminary NO GROWTH AFTER 24 HOURS Resulted 10/09/17 15:00 Blood Blood Culture - Preliminary NO GROWTH AFTER 24 HOURS Resulted Current Medications Medications (Trade) Dose Ordered Sig/Leon Route PRN Reason Start Time Stop Time Status Last Admin Dose Admin Acetaminophen (Tylenol) 650 mg Q4H PRN ORAL fever 10/08/17 11:00 11/05/17 14:59 Al Hydroxide/Mg Hydroxide (Mylanta II) 30 ml Q6H PRN ORAL dyspepsia 10/08/17 09:00 11/05/17 14:59 Amlodipine Besylate (Norvasc) 10 mg DAILY ORAL 10/12/17 09:00 11/11/17 08:59 Ampicillin Sodium/ Sulbactam Sodium 3 gm/Sodium Chloride 110 ml @ 220 mls/hr Q6HR IVPB 10/09/17 13:30 10/16/17 13:29 10/11/17 12:09 Apixaban (Eliquis) 2.5 mg BID ORAL 10/11/17 18:00 11/10/17 17:59 Atorvastatin Calcium (Lipitor) 80 mg BEDTIME ORAL 10/08/17 21:00 11/05/17 20:59 10/10/17 21:28 Clonidine HCl (Catapres Tab) 0.1 mg Q4H PRN ORAL sbp more than 160 10/08/17 11:00 11/05/17 14:59 10/11/17 10:38 Dextrose (Dextrose 50%) STAT PRN IV Hypoglycemia 10/08/17 15:00 11/05/17 14:59 Erythromycin (Ilotycin) 1 applic STAT LEFT EYE 10/08/17 12:15 10/13/17 12:14 10/11/17 12:10 Finasteride (Proscar) 5 mg DAILY ORAL 10/08/17 09:00 11/06/17 08:59 10/11/17 08:39 Gabapentin (Neurontin) 300 mg BEDTIME ORAL 10/08/17 21:00 11/05/17 20:59 10/10/17 21:28 Hydralazine HCl (Apresoline) 25 mg Q4H PRN ORAL SBP > 160 10/11/17 13:15 11/10/17 13:14 10/11/17 13:20 Levothyroxine Sodium (Synthroid) 150 mcg ACBREAKFAST ORAL 10/09/17 06:30 11/07/17 06:29 10/11/17 05:40 Losartan Potassium (Cozaar) 50 mg DAILY ORAL 10/12/17 09:00 11/11/17 08:59 Morphine Sulfate (Morphine Sulfate) 2 mg Q4H PRN IVP severe pain 7-10 10/08/17 11:00 10/13/17 14:59 Nitroglycerin (Ntg) 0.4 mg Q5M X 3 DOSES PRN SL Prn Chest Pain 10/08/17 09:00 11/05/17 14:59 Ondansetron HCl (Zofran) 4 mg Q6H PRN IVP Nausea & Vomiting 10/08/17 09:00 11/05/17 14:59 Polyethylene Glycol (Miralax) 17 gm HSPRN PRN ORAL Constipation 10/08/17 15:00 11/05/17 14:59 Sitagliptin Phosphate (Januvia) 50 mg ACBREAKFAST ORAL 10/10/17 08:00 11/09/17 07:59 10/11/17 05:41 Sodium Chloride 1,000 ml @ 100 mls/hr Q10H IVLG 10/08/17 09:00 11/05/17 16:29 10/10/17 11:25 Tamsulosin HCl (Flomax) 0.4 mg BEDTIME ORAL 10/08/17 21:00 11/05/17 20:59 10/10/17 21:28 Temazepam (Restoril) 15 mg HSPRN PRN ORAL Insomnia 10/08/17 15:00 10/13/17 14:59 LUIS AMBROSIO Oct 11, 2017 16:55
[2017-10-11 17:35] VITALS: BP 172/83
[2017-10-11] MEDS ORDERED: Eliquis 2.5mg tablet ORAL SCH (18:00)
--- NOTE | 2017-10-11 23:30 | Discharge Summary 2 SIG ---
DATE OF ADMISSION: 10/06/2017 DATE OF DISCHARGE: 10/11/2017 CONSULTANTS: 1. Wagner Ramirez M.D. 2. Aureliano Estrada M.D. BRIEF HOSPITAL COURSE: The patient is a 62-year-old male with medical history of hypertension, CVA, diabetes mellitus, and hypothyroidism, presented from [facility] for evaluation of "bleeding from the left eye." The patient stated that he was being washed and for some reason, his eyes got traumatized. He was recently sent to [facility] ED two to three days prior as there was bleeding. He was eventually discharged. Apparently on the day of presentation, eye vessels had ruptured. He denied blurry vision. Denied change in vision. Denied eye pain, pain only with right extraocular movement. The patient is on aspirin and apixaban at [facility]. On evaluation at ED, blood pressure was elevated to 159/81. Blood work revealed leukocytosis. WBC was 14. Hemoglobin was slightly anemic at 11.4. Hematocrit was 35. Creatinine was 1.9. BUN was 46. CT of the head and orbits revealed a preseptal hemorrhage in the left orbit with left-sided exophthalmos. The patient was then admitted for evaluation of hemorrhage on the left, for hyperkalemia and acute kidney injury, for evaluation of hypoglycemia with associated diabetes mellitus and hypothyroidism. He was seen by pumper gauger, Dr. Parnell, and was examined while at the emergency room. He was given erythromycin ointment. CT scan was suggestive of possible sinusitis. He was given Unasyn. Urine culture showed growth of E. coli. TSH was 0.089. The patient was on levothyroxine 200 mcg prior to admission. Dosage was decreased to 150 mcg daily. His blood sugars were also monitored. He was given sliding scale and Januvia 50 mg was added to his regimen. He came in with an unstageable pressure ulcer stage III on the left heel and stage II pressure ulcer on bilateral buttocks and coccygeal area. He was given wound care. Leukocytosis improved. Renal ultrasound was negative for hydronephrosis. Blood culture did not isolate any growth. He was eventually discharged back to [facility]. Kamara catheter was discontinued. FINAL DIAGNOSES: 1. Acute kidney injury. 2. Subconjunctival hemorrhage of the left eye. 3. Hypothyroidism. 4. Hypoglycemia. 5. Diabetes mellitus type 2. 6. Hyperkalemia. 7. Possible sinusitis. 8. Hyperlipidemia. 9. 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 10. Benign prostatic hypertrophy. 11. Stage III pressure ulcer on the left heel and stage II pressure ulcer on coccyx and bilateral buttocks present on admission. DISPOSITION: The patient was discharged to [facility]. DISCHARGE MEDICATIONS: Refer to medication list. Continue Augmentin 875/125 b.i.d. for six more days. Devorah Moran M.D. I have been assigned to dictate discharge summary on this account and I was not involved in the patient's management. Maryjane Cha N.P. DR: KAUSHIK JOB#: [id number] CC: JELENA
[2017-10-12] MEDS ORDERED: sitaGLIPtin 50mg tab ORAL SCH (09:00)
[2017-10-12] MEDS ORDERED: Losartan 50mg tab ORAL SCH (09:00)
--- NOTE | 2017-10-17 17:36 | Cardiology Report ---
APPROVED REPORT EKG Measurement Heart [id number] Normal sinus rhythm Moderate voltage criteria for LVH, may be normal variant T wave abnormality, consider inferior ischemia Abnormal ECG
== END 2017-10-11 19:30 | DRG 82 ==
LOC: EDBD 10:40 → EMR 10:59 → CANBEDREQ 11:49 → 2E 14:04 → EDBEDREQ 14:08 → 4W 15:30 → 2E 19:15 → 4W 10-08 08:42
DX: H11.32 Conjunctival hemorrhage, left eye (principal); N17.9 Acute kidney failure, unspecified; L89.152 Pressure ulcer of sacral region, stage 2; E11.649 Type 2 diabetes mellitus with hypoglycemia without coma; L89.623 Pressure ulcer of left heel, stage 3; L89.312 Pressure ulcer of right buttock, stage 2; L89.322 Pressure ulcer of left buttock, stage 2; I69.354 Hemiplegia and hemiparesis following cerebral infarction affecting left non-dominant side; E87.5 Hyperkalemia; I10 Essential (primary) hypertension; D64.9 Anemia, unspecified; E03.9 Hypothyroidism, unspecified; R93.8 Abnormal findings on diagnostic imaging of other specified body structures; N39.0 Urinary tract infection, site not specified; J32.9 Chronic sinusitis, unspecified; E78.5 Hyperlipidemia, unspecified; N40.0 Benign prostatic hyperplasia without lower urinary tract symptoms; B96.20 Unspecified Escherichia coli [E. coli] as the cause of diseases classified elsewhere; T14.90XA Injury, unspecified, initial encounter; X58.XXXA Exposure to other specified factors, initial encounter; Y92.129 Unspecified place in nursing home as the place of occurrence of the external cause
CPT/HCPCS: 36415; 70480; 71045; 76775; 80048; 80053; 80061; 81001; 82607; 82728; 82747; 82962; 83036; 83540; 83550; 83735; 84100; 84443; 85025; 85610; 86850; 86900; 86901; 87040; 87081; 87086; 87181; 90471; 90715; 93005; 94640; 94664; 99285; J1815; J2405

== ENCOUNTER 2019-02-18 15:53 | Inpatient (IN) | payer SELFPAY ==
[~2019-02-18] VITALS: Ht 175.3 cm; Wt 92.2 kg
[~2019-02-18 15:53] MED LIST: ACETAMINOPHEN325 M1 ORAL; AMLODIPINE BES2.5 MG ORAL; ARGININE PO; ASPIR 8181 MG ORAL; ATORVASTATIN CA40 MG ORAL; AUGMENTIN 875-1 EAC1 ORAL; CRANBERRY400 MG PO; DOCUSATE SODIU100 MG ORAL; ELIQUIS2.5 MG PO; ERYTHROMYCIN3.5 GM LEFT EYE; FOLIC ACID1 MG ORAL; GABAPENTIN300 MG ORAL; HUMALOG100 UNIT/4 SUBQ; JANUVIA50 MG ORAL; LEVEMIR100 UNIT/1 SUBQ; LEVOTHYROXINE150 MCG ORAL; LOSARTAN POTASS50 MG ORAL; MELATONIN5 M4 ORAL; MIRALAX17 G2 ORAL; NEPHRO-VITE RX1 EAC1 PO; OFLOXACIN5 ML OT; PROSCAR5 MG ORAL; RESTORIL15 MG ORAL; SOLARAZE100 GM TP; TAMSULOSIN HCL0.4 MG ORAL; TRAMADOL HCL50 MG ORAL; VITAMIN C500 M1 ORAL; VITAMIN D250000 UNI1 ORAL; ZOFRAN4 M3 ORAL
[2019-02-18] MEDS ORDERED: MULTIVITAMINS1 EAC2 ORAL (16:13)
[2019-02-18] MEDS ORDERED: ZOFRAN4 M3 ORAL (16:13)
[2019-02-18] MEDS ORDERED: LANTUS SOL100 UNIT/1 SUBQ (16:13)
[2019-02-18] MEDS ORDERED: CATAPRES0.1 MG ORAL (16:13)
[2019-02-18] MEDS ORDERED: PLAVIX75 MG ORAL (16:13)
[2019-02-18 16:33] VITALS: BP 169/82
--- NOTE | 2019-02-18 16:36 | NUR ---
ED Nurse Note: Pt EVELIN from [facility]. For elevated BP. Upon arrival the BP was 169/82. Pt denies SOB or pain Pt is AAOx4 respirations are even and unlabored.
[2019-02-18 16:41] LABS: EOSINOPHILS % (AUTO) 3.2 % (0.0-3.0); HEMOGLOBIN 12.2 G/DL (14.2-18.0); LYMPHOCYTES % (AUTO) 19.8 % (20.0-45.0); MEAN CORPUSCULAR VOLUME 88 FL (80-99); MONOCYTES % (AUTO) 10.1 % (1.0-10.0); NEUTROPHILS % (AUTO) 65.9 % (45.0-75.0); PLATELET COUNT 228 K/UL (150-450); RED BLOOD COUNT 4.09 M/UL (4.70-6.10); RED CELL DISTRIBUTION WIDTH 11.5 % (11.6-14.8); WHITE BLOOD COUNT 8.8 K/UL (4.8-10.8)
--- NOTE | 2019-02-18 16:48 | Diagnostic Imaging Report ---
Indication: Chest pain Technique: One view of the chest Comparison: 10/06/2017 Findings: Less optimal inspiration currently. The heart size is upper limits of normal. The lungs and pleural spaces are clear. Impression: No acute process
[2019-02-18 16:52] LABS: ANION GAP 6 mmol/L (5-15); BLOOD UREA NITROGEN 48 mg/dL (7-18); CALCIUM 8.6 MG/DL (8.5-10.1); CARBON DIOXIDE 28 MMOL/L (21-32); CHLORIDE 104 MMOL/L (98-107); CREATININE 2.2 MG/DL (0.55-1.30); POTASSIUM 4.8 MMOL/L (3.5-5.1); SODIUM 138 MMOL/L (136-145)
--- NOTE | 2019-02-18 17:03 | Emergency Room Report ---
History of Present Illness General Chief Complaint: Hypertension Source: Patient, EMS Present Illness HPI Patient presents with reports of persistent high blood pressure Patient does not have full knowledge of his medical history does limit the history of present illness presents from a nursing facility patient was reportedly given clonidine at this time denies any chest pain and eyes any headache he has some mild lethargy and fatigue Denies any focal weakness denies any neck pain or photophobia Allergies: Coded Allergies: No Known Allergies (Unverified , 10/07/17) Patient History Past Medical History: see triage record Pertinent Family History: none Reviewed Nursing Documentation: PMH: Agreed; PSxH: Agreed Nursing Documentation-PM Past Medical History: No History, Except For Hx Hypertension: Yes Hx Diabetes: Yes Hx Cancer: No Hx Gastrointestinal Problems: No Hx Neurological Problems: Yes Hx Cerebrovascular Accident: Yes Review of Systems All Other Systems: negative except mentioned in HPI Physical Exam Vital Signs Date Time Temp Pulse Resp B/P (MAP) Pulse Ox O2 Delivery O2 Flow Rate FiO2 02/18/19 15:46 98.1 54 20 180/80 (113) 98 Room Air Sp02 EP Interpretation: reviewed, normal General Appearance: well appearing, no apparent distress Head: normocephalic, atraumatic Eyes: bilateral eye PERRL, bilateral eye EOMI ENT: hearing grossly normal, normal pharynx, TMs + canals normal, uvula midline Neck: full range of motion, supple, no meningismus, no bony tend Respiratory: lungs clear, normal breath sounds, no rhonchi, no respiratory distress, no retraction, no accessory muscle use Cardiovascular #1: normal peripheral pulses, regular rate, rhythm, no edema, no gallop, no JVD, no murmur Gastrointestinal: normal bowel sounds, non tender, soft, no mass, no organomegaly, non-distended, no guarding, no hernia, no pulsatile mass, no rebound Genitourinary: no CVA tenderness Musculoskeletal: normal inspection Neurologic: oriented x3, responsive, licensed nurse practitioner III-XII nml as tested, motor strength/ tone normal, sensory intact Psychiatric: mood/affect normal Skin: normal color, no rash, warm/dry, palpation normal Lymphatic: normal inspection, no adenopathy Medical Decision Making Diagnostic Impression: Primary Impression: Symptomatic bradycardia Additional Impressions: Hypertensive urgency, malignant Elevated troponin Renal insufficiency ER Course Patient is a fairly complex patient with multiple differential to consideration including but not limited to cardiac cardiopulmonary and vascular emergencies Patient shows extensive abnormalities including kidney function abnormality Elevated troponin Patient's blood pressure however has improved He was provided aspirin for the elevated troponin Patient is somewhat bradycardic however does not require acute intervention for that could be secondary to clonidine At this time admitted to telemetry bed for continued care Labs Test 02/18/19 16:22 White Blood Count 8.8 K/UL (4.8-10.8) Red Blood Count 4.09 M/UL (4.70-6.10) Hemoglobin 12.2 G/DL (14.2-18.0) Hematocrit 36.0 % (42.0-52.0) Mean Corpuscular Volume 88 FL (80-99) Mean Corpuscular Hemoglobin 29.9 PG (27.0-31.0) Mean Corpuscular Hemoglobin Concent 33.9 G/DL (32.0-36.0) Red Cell Distribution Width 11.5 % (11.6-14.8) Platelet Count 228 K/UL (150-450) Mean Platelet Volume 6.7 FL (6.5-10.1) Neutrophils (%) (Auto) 65.9 % (45.0-75.0) Lymphocytes (%) (Auto) 19.8 % (20.0-45.0) Monocytes (%) (Auto) 10.1 % (1.0-10.0) Eosinophils (%) (Auto) 3.2 % (0.0-3.0) Basophils (%) (Auto) 1.0 % (0.0-2.0) Sodium Level 138 MMOL/L (136-145) Potassium Level 4.8 MMOL/L (3.5-5.1) Chloride Level 104 MMOL/L (98-107) Carbon Dioxide Level 28 MMOL/L (21-32) Anion Gap 6 mmol/L (5-15) Blood Urea Nitrogen 48 mg/dL (7-18) Creatinine 2.2 MG/DL (0.55-1.30) Estimat Glomerular Filtration Rate 30.4 mL/min (>60) Glucose Level 179 MG/DL (74-106) Calcium Level 8.6 MG/DL (8.5-10.1) Total Bilirubin 0.3 MG/DL (0.2-1.0) Aspartate Amino Transf (AST/SGOT) 20 U/L (15-37) Alanine Aminotransferase (ALT/SGPT) 28 U/L (12-78) Alkaline Phosphatase 128 U/L (46-116) Total Creatine Kinase 70 U/L (26-308) Creatine Kinase MB 1.3 NG/ML (0.0-3.6) Creatine Kinase MB Relative Index 1.8 Troponin I 0.114 ng/mL (0.000-0.056) Total Protein 7.1 G/DL (6.4-8.2) Albumin 3.1 G/DL (3.4-5.0) Globulin 4.0 g/dL Albumin/Globulin Ratio 0.8 (1.0-2.7) Lipase 304 U/L (73-393) EKG Diagnostic Results Rate: bradycardiac Rhythm: other ST Segments: no acute changes Rhythm Strip Diag. Results EP Interpretation: yes Rate: 52 Rhythm: no PVC's, no ectopy, other - Sinus bradycardia Chest X-Ray Diagnostic Results Chest X-Ray Diagnostic Results : Chest X-Ray Ordered: Yes # of Views/Limited/Complete: 1 View Indication: Chest Pain EP Interpretation: Yes Interpretation: no consolidation, no effusion, no pneumothorax Impression: No acute disease Electronically Signed by: Oni Betancourt DO Last Vital Signs Date Time Temp Pulse Resp B/P (MAP) Pulse Ox O2 Delivery O2 Flow Rate FiO2 02/18/19 16:33 98.1 50 14 169/82 100 Room Air Status: improved Disposition: ADMITTED INPATIENT Condition: Serious Referrals: Oni Schilling MD (PCP) Oni Betancourt DO Feb 18, 2019 17:03
[2019-02-18 17:05] LABS: ALANINE AMINOTRANSFERASE 28 U/L (12-78); ALBUMIN 3.1 G/DL (3.4-5.0); ALBUMIN/GLOBULIN RATIO 0.8 (1.0-2.7); ALKALINE PHOSPHATASE 128 U/L (46-116); ASPARTATE AMINO TRANSFERASE 20 U/L (15-37); BILIRUBIN,TOTAL 0.3 MG/DL (0.2-1.0); CKMB 1.3 NG/ML (0.0-3.6); CREATINE KINASE 70 U/L (26-308)
[2019-02-18] MEDS ORDERED: Aspirin Baby 81mg ORAL ONE (18:00)
--- NOTE | 2019-02-18 18:40 | NUR ---
NURSE NOTES: Received phone report from Tamiko @ ED. Per Tamiko, the patient needs to go up right now. The patient's systolic blood pressure was 170s. Will wait for the patient.
--- NOTE | 2019-02-18 19:00 | NUR ---
NURSE NOTES: Received patient from LOU Morrison @ ER. The patient denies of chest pain, shortness of breath, headache. The patient's belongings checked with the patient and the nurse. Intact and patent IV confirm. Will take vital sign and do history taking and endorse plan of care.
--- NOTE | 2019-02-18 19:30 | NUR ---
HAND-OFF: Report given to LOU Landry. Informed that the patien's blood pressure is 186/90 and needs to get immediate order. The patient's call light in reach, bed in the lowest position, and fall precaution reinforced. Intact and patent IV confirmed. Endorsed plan of care. Addendum: 02/18/19 at 1959 by Margarito Arredondo RN The patient denies of acute distress, shortness of breath, chest pain, or headache.
--- NOTE | 2019-02-18 19:40 | NUR ---
NURSE NOTES: Received report from LOU Alvarez. Patient in bed awake showing no signs of acute distress. Respiration even and non labored on room air. No SOB noted. IV line patent and intact. Bed in lowest position, wheels locked and alarm on. Call light within reach. All needs attended and met. Called and received admission orders from Dr. Schilling. noted and carried out.
[2019-02-18] MEDS ORDERED: traMADol 50mg tab ORAL PRN (19:45)
[2019-02-18] MEDS ORDERED: Miralax 17gm pkt ORAL PRN (19:45)
[2019-02-18 20:00] VITALS: BP 179/79
[2019-02-18] MEDS ORDERED: Minoxidil 2.5mg tab ORAL PRN (20:45)
[2019-02-18] MEDS ORDERED: Erythromycin Opth Ointment 3.5gm LEFT EYE SCH (21:00)
[2019-02-18] MEDS: Atorvastatin 80mg tab ORAL SCH (21:53)
[2019-02-18] MEDS: HydrALAZINE 50mg tab ORAL SCH (21:53)
[2019-02-18] MEDS: Tamsulosin 0.4mg cap ORAL SCH (21:54)
[2019-02-19] VITALS: BP 182/82
[2019-02-19] MEDS: NovoLOG Insulin Flexpen SUBQ SCH ×5 (00:08→21:58)
[2019-02-19 04:00] VITALS: BP 141/65
[2019-02-19] MEDS: HydrALAZINE 50mg tab ORAL SCH ×3 (06:37→21:57)
[2019-02-19 07:24] LABS: BASOPHILS % (AUTO) 0.9 % (0.0-2.0); EOSINOPHILS % (AUTO) 4.4 % (0.0-3.0); HEMOGLOBIN 11.7 G/DL (14.2-18.0); LYMPHOCYTES % (AUTO) 30.4 % (20.0-45.0); MEAN CORPUSCULAR VOLUME 92 FL (80-99); MONOCYTES % (AUTO) 8.5 % (1.0-10.0); NEUTROPHILS % (AUTO) 55.8 % (45.0-75.0); PLATELET COUNT 211 K/UL (150-450); RED BLOOD COUNT 3.82 M/UL (4.70-6.10); RED CELL DISTRIBUTION WIDTH 11.8 % (11.6-14.8); WHITE BLOOD COUNT 6.8 K/UL (4.8-10.8)
[2019-02-19 07:31] LABS: ALANINE AMINOTRANSFERASE 24 U/L (12-78); ALBUMIN 2.8 G/DL (3.4-5.0); ALBUMIN/GLOBULIN RATIO 0.8 (1.0-2.7); ALKALINE PHOSPHATASE 121 U/L (46-116); ANION GAP 8 mmol/L (5-15); ASPARTATE AMINO TRANSFERASE 18 U/L (15-37); BILIRUBIN,TOTAL 0.3 MG/DL (0.2-1.0); BLOOD UREA NITROGEN 44 mg/dL (7-18); CALCIUM 8.8 MG/DL (8.5-10.1); CARBON DIOXIDE 27 MMOL/L (21-32); CHLORIDE 106 MMOL/L (98-107); CHOLESTEROL 88 MG/DL (< 200); HDL CHOLESTEROL 33 MG/DL (40-60); POTASSIUM 3.8 MMOL/L (3.5-5.1); SODIUM 141 MMOL/L (136-145); TRIGLYCERIDES 79 MG/DL (30-150)
[2019-02-19 07:33] LABS: CREATINE KINASE 63 U/L (26-308); GAMMA GLUTAMYL TRANSPEPTIDASE 16 U/L (5-85); PHOSPHORUS 3.8 MG/DL (2.5-4.9)
--- NOTE | 2019-02-19 07:44 | NUR ---
HAND-OFF: Report given to LOU Alvarez.
--- NOTE | 2019-02-19 07:45 | NUR ---
NURSE NOTES: Received report from LOU Landry. The patient is resting on the bed without acute distress or shortness of breath. The patient's bed in the lowest position, call light in reach, and fall precaution reinforced. Intact and patent IV confirmed. Will continue plan of care.
[2019-02-19 08:00] VITALS: BP 154/73
--- NOTE | 2019-02-19 08:30 | NUR ---
NURSE NOTES: Notified Dr. Bazan and Dr. Schilling regarding Troponin of 0.114, creatinine of 2.0, and Magnesium of 1.6. Will carry out the order as soon as I receives it.
--- NOTE | 2019-02-19 08:30 | NUR ---
NURSE NOTES: Notified to Dr. Bazan that he has Eliquis 2.5mg,Aspirin 81mg, and Clopidogrel 75mg ordered on 0900. Per Dr. Bazan, continue Clopidogrel and Eliquis but d/c aspirin. Confirmed with Dr. Bazan two times for confirmation. Will continue to monitor the patient.
[2019-02-19] MEDS: Miralax 17gm pkt ORAL SCH (09:00)
[2019-02-19] MEDS ORDERED: Losartan 50mg tab ORAL SCH (09:00)
[2019-02-19] MEDS ORDERED: Docusate 100mg cap ORAL SCH (09:00)
[2019-02-19] MEDS ORDERED: sitaGLIPtin 50mg tab ORAL SCH (09:00)
[2019-02-19] MEDS ORDERED: Aspirin EC 81mg tab ORAL SCH (09:00)
[2019-02-19] MEDS: Eliquis 2.5mg tablet ORAL SCH ×2 (09:41→17:42)
[2019-02-19] MEDS: sitaGLIPtin 50mg tab ORAL SCH (09:41)
[2019-02-19] MEDS: Ascorbic Acid 500mg tab ORAL SCH (09:42)
[2019-02-19 12:00] VITALS: BP 157/67
--- NOTE | 2019-02-19 12:00 | NUR ---
NURSE NOTES: Notified Dr. Goldsmith regarding Creatinine of 2.0, BUN of 44, Magnesium of 1.6, and Troponin of 0.114. Will carry out the order as soon as receives it. The patient denies of chest pain, shortness of breath, or headache. Will continue to monitor the patient.
--- NOTE | 2019-02-19 12:53 | Consultation ---
Consult Note Consult Note asked to eval at the request of dr mantilla BP management and renal failure Patient presents with reports of persistent high blood pressure Patient does not have full knowledge of his medical history does limit the history of present illness presents from a nursing facility patient was reportedly given clonidine at this time denies any chest pain and eyes any headache he has some mild lethargy and fatigue Denies any focal weakness denies any neck pain or photophobia No Known Allergies (Unverified , 10/07/17) Past Medical History: No History, Except For Hx Hypertension: Yes Hx Diabetes: Yes Hx Gastrointestinal Problems: No Hx Neurological Problems: Yes Hx Cerebrovascular Accident: Yes examined data reviewed Assessment/Plan Acute Renal failure Possibly underlying CKD : HTN DM Hypertensive Emergency Bradycardia Elevated troponin I DM : High A1c BP management Slow Hydrate Kidney MARCO A 2D Echo Avoid nephrotoxics Per orders Rafa Farr MD Feb 19, 2019 12:53
[2019-02-19] MEDS: Docusate 100mg cap ORAL SCH ×2 (13:00→18:00)
--- NOTE | 2019-02-19 13:37 | Diagnostic Imaging Report ---
Indication:Elevated Bun and Creatinine. Technique: Grayscale and duplex Doppler imaging of the kidneys performed. Comparison: None Findings: Right kidney is 10.9 cm and left 11.6 cm in length. Cortical echogenicity is normal. There is no hydronephrosis demonstrated. There is a cyst in the central part of the right kidney measuring 2 cm. Kidneys are slightly lobulated. There is moderate thickening of the wall the urinary bladder. There is a area of broad-based focal wall thickening or mass involving the posterior wall the bladder. Evaluation with cystoscopy is recommended. IVC is patent. IMPRESSION: No hydronephrosis or other findings to account for the abnormal renal function. Thickened wall the urinary bladder likely cystitis. Correlate clinically. Focal asymmetric thickening involving the posterior wall the urinary bladder. Underlying mass not excluded. Suggest evaluation with cystoscopy
--- NOTE | 2019-02-19 13:39 | Cardiology Report ---
APPROVED REPORT EXAM: Two-dimensional and M-mode echocardiogram with Doppler and color Doppler. INDICATION Congestive Heart Failure M-Mode DIMENSIONS IVSd0.9 (0.7-1.1cm)Left Atrium (MM)4.8 (1.6-4.0cm) LVDd5.2 (3.5-5.6cm)Aortic Root2.8 (2.0-3.7cm) PWd0.8 (0.7-1.1cm)Aortic Cusp Exc.1.9 (1.5-2.0cm) IVSs1.6 cm LVDs3.2 (2.5-4.0cm) PWs1.4 cm Normal left ventricular chamber size, systolic function and wall motion . Left ventricular ejection fraction estimated to be 55-60 %. Mild left ventricular hypertrophy by 2-D. No evidence of pericardial effusion . Left atrial size at upper limits of normal. Right cardiac chamber sizes are within normal limits. Aortic valve calcification with normal cusp excursion . Mildly thickened mitral valve leaflets with normal excursion. Mild mitral annulus and aortic root calcification. Pulmonic valve not well visualized. IVC at normal size with physiologic collapse. A color flow and spectral Doppler study was performed and revealed: No aortic insufficiency . Mitral diastolic velocities suggest reduced left ventricular relaxation c/w mild LV diastolic dysfunction (Grade I ) Trace mitral regurgitation. Mild tricuspid regurgitation. Tricuspid systolic velocities suggests peak right ventricular systolic pressure of 16mmHg.
--- NOTE | 2019-02-19 14:47 | Cardiac Electrophysiology PN ---
Subjective Subjective [id number] Objective Last 24 Hour Vital Signs Date Time Temp Pulse Resp B/P (MAP) Pulse Ox O2 Delivery O2 Flow Rate FiO2 02/19/19 13:33 143/72 02/19/19 12:00 62 02/19/19 12:00 98.8 60 18 157/67 (97) 98 02/19/19 09:42 54 154/73 02/19/19 09:00 Room Air 02/19/19 08:00 56 02/19/19 08:00 98.1 54 18 154/73 (100) 98 02/19/19 06:37 141/65 02/19/19 04:00 97.3 54 20 141/65 (90) 98 02/19/19 04:00 48 02/19/19 00:00 97.6 56 20 182/82 (115) 96 02/19/19 00:00 52 02/18/19 21:53 174/79 02/18/19 21:53 174/79 02/18/19 21:00 Room Air 02/18/19 21:00 Room Air 02/18/19 20:00 97.0 53 20 179/79 (112) 98 02/18/19 20:00 59 02/18/19 18:51 98.1 50 14 179/77 100 Room Air 02/18/19 16:33 98.1 50 14 169/82 100 Room Air 02/18/19 16:00 54 20 Room Air 02/18/19 15:46 98.1 54 20 180/80 (113) 98 Room Air Intake and Output 02/18/19 02/19/19 19:00 07:00 Intake Total 0 ml Output Total 1000 ml Balance 0 ml -1000 ml Intake Oral 0 ml Output Urine Total 1000 ml # Voids 3 # Bowel Movements 2 Laboratory Tests Test 02/18/19 16:22 02/19/19 05:34 White Blood Count 8.8 K/UL (4.8-10.8) 6.8 K/UL (4.8-10.8) Red Blood Count 4.09 M/UL (4.70-6.10) L 3.82 M/UL (4.70-6.10) L Hemoglobin 12.2 G/DL (14.2-18.0) L 11.7 G/DL (14.2-18.0) L Hematocrit 36.0 % (42.0-52.0) L 35.0 % (42.0-52.0) L Mean Corpuscular Volume 88 FL (80-99) 92 FL (80-99) Mean Corpuscular Hemoglobin 29.9 PG (27.0-31.0) 30.6 PG (27.0-31.0) Mean Corpuscular Hemoglobin Concent 33.9 G/DL (32.0-36.0) 33.4 G/DL (32.0-36.0) Red Cell Distribution Width 11.5 % (11.6-14.8) L 11.8 % (11.6-14.8) Platelet Count 228 K/UL (150-450) 211 K/UL (150-450) Mean Platelet Volume 6.7 FL (6.5-10.1) 7.6 FL (6.5-10.1) Neutrophils (%) (Auto) 65.9 % (45.0-75.0) 55.8 % (45.0-75.0) Lymphocytes (%) (Auto) 19.8 % (20.0-45.0) L 30.4 % (20.0-45.0) Monocytes (%) (Auto) 10.1 % (1.0-10.0) H 8.5 % (1.0-10.0) Eosinophils (%) (Auto) 3.2 % (0.0-3.0) H 4.4 % (0.0-3.0) H Basophils (%) (Auto) 1.0 % (0.0-2.0) 0.9 % (0.0-2.0) Sodium Level 138 MMOL/L (136-145) 141 MMOL/L (136-145) Potassium Level 4.8 MMOL/L (3.5-5.1) 3.8 MMOL/L (3.5-5.1) Chloride Level 104 MMOL/L (98-107) 106 MMOL/L (98-107) Carbon Dioxide Level 28 MMOL/L (21-32) 27 MMOL/L (21-32) Anion Gap 6 mmol/L (5-15) 8 mmol/L (5-15) Blood Urea Nitrogen 48 mg/dL (7-18) H 44 mg/dL (7-18) H Creatinine 2.2 MG/DL (0.55-1.30) H 2.0 MG/DL (0.55-1.30) H Estimat Glomerular Filtration Rate 30.4 mL/min (>60) 33.9 mL/min (>60) Glucose Level 179 MG/DL (74-106) H 126 MG/DL (74-106) H Calcium Level 8.6 MG/DL (8.5-10.1) 8.8 MG/DL (8.5-10.1) Total Bilirubin 0.3 MG/DL (0.2-1.0) 0.3 MG/DL (0.2-1.0) Aspartate Amino Transf (AST/SGOT) 20 U/L (15-37) 18 U/L (15-37) Alanine Aminotransferase (ALT/SGPT) 28 U/L (12-78) 24 U/L (12-78) Alkaline Phosphatase 128 U/L (46-116) H 121 U/L (46-116) H Total Creatine Kinase 70 U/L (26-308) 63 U/L (26-308) Creatine Kinase MB 1.3 NG/ML (0.0-3.6) Creatine Kinase MB Relative Index 1.8 Troponin I 0.114 ng/mL (0.000-0.056) Total Protein 7.1 G/DL (6.4-8.2) 6.5 G/DL (6.4-8.2) Albumin 3.1 G/DL (3.4-5.0) L 2.8 G/DL (3.4-5.0) L Globulin 4.0 g/dL 3.7 g/dL Albumin/Globulin Ratio 0.8 (1.0-2.7) L 0.8 (1.0-2.7) L Lipase 304 U/L (73-393) Hemoglobin A1c 6.8 % (4.3-6.0) H Uric Acid 4.6 MG/DL (2.6-7.2) Phosphorus Level 3.8 MG/DL (2.5-4.9) Magnesium Level 1.6 MG/DL (1.8-2.4) L Gamma Glutamyl Transpeptidase 16 U/L (5-85) C-Reactive Protein, Quantitative < 0.4 mg/dL (0.00-0.90) Pro-B-Type Natriuretic Peptide 1191 pg/mL (0-125) H Triglycerides Level 79 MG/DL (30-150) Cholesterol Level 88 MG/DL (< 200) LDL Cholesterol 43 mg/dL (<100) HDL Cholesterol 33 MG/DL (40-60) L Cholesterol/HDL Ratio 2.7 (3.3-4.4) L Vitamin B12 Level 532 PG/ML (193-986) Folate 4.2 NG/ML (8.6-58.9) L Thyroid Stimulating Hormone (TSH) 2.034 uiU/mL (0.358-3.740) Microbiology Date/Time Source Procedure Growth Status 02/18/19 18:38 Rectum Received Castillo Bazan MD Feb 19, 2019 14:47
[2019-02-19 16:00] VITALS: BP 128/60
--- NOTE | 2019-02-19 17:00 | NUR ---
CASE MANAGEMENT:REVIEW 63 YR OLD MALE BIBA FROM [place] CC: HYPERTENSION SI: MALIGNANT HYPERTENSION. ELEVATED TROPONIN 98.0 54 20 180/80 98% ON RA BUN+48 CR+2.2 TROPONIN(+) 0.114 IS: 500CC NS BOLUS ASA PO CHEST XRAY : TO TELEMETRY IS: ELIQUIS PO PLAVIX PO COZAAR PO NORVASC PO HYDRALAZINE PO IVF@50/HR MINOXIDIL PO PRN *INTERQUAL CRITERIA MET
[2019-02-19 17:52] LABS: APPEARANCE,URINE VERY CLOUDY; BILIRUBIN, URINE NEGATIVE (NEGATIVE); COLOR,URINE PALE YELLOW; GLUCOSE, URINE (UA) NEGATIVE (NEGATIVE); KETONES,URINE NEGATIVE (NEGATIVE); LEUKOCYTE ESTERASE ,URINE 3+ (NEGATIVE); NITRITE,URINE NEGATIVE (NEGATIVE); PH,URINE 6 (4.5-8.0); PROTEIN,URINE 3+ (NEGATIVE); UROBILINOGEN,URINE NORMAL MG/DL (0.0-1.0)
--- NOTE | 2019-02-19 19:20 | NUR ---
HAND-OFF: Report given to LOU Landry. The patient is resting on the bed without acute distress or shortness of breath. The patient's bed in the lowest position, call light in reach, and fall and aspiration precaution reinforced. Endorsed plan of care.
--- NOTE | 2019-02-19 19:25 | NUR ---
NURSE NOTES: Received report from LOU Alvarez. Patient in bed at semi roberson pos. awake showing no signs of acute distress. Respiration even and non labored on room air. No SOB noted. IV line patent and intact. Bed in lowest position, wheels locked and alarm on. Call light within reach. All needs attended and met. Will continue plan of care.
[2019-02-19 20:00] VITALS: BP 151/67
[2019-02-19] MEDS: Tamsulosin 0.4mg cap ORAL SCH (21:57)
[2019-02-19] MEDS: Atorvastatin 80mg tab ORAL SCH (21:57)
--- NOTE | 2019-02-19 22:30 | Consultation ---
DATE OF CONSULTATION: 02/19/2019 CARDIOLOGY CONSULTATION CONSULTING PHYSICIAN: Castillo Bazan M.D. REFERRING PHYSICIAN: Oni Schilling M.D. REASON FOR CONSULTATION: Accelerated hypertension. HISTORY OF PRESENT ILLNESS: The patient is a 63-year-old gentleman, who presented to the emergency room with accelerated hypertension. The patient presents from nursing facility and was reportedly was given clonidine. The patient denies any chest pain or shortness of breath. No nausea, vomiting, or diaphoresis. The patient was admitted and a Cardiology consultation was obtained for further evaluation and management. In the emergency room, the patient's blood pressure was 180/80 with a pulse of 54. REVIEW OF SYSTEMS: Thoroughly performed was negative other than what was mentioned in the history of present illness. PAST MEDICAL HISTORY: 1. Hypertension. 2. Diabetes. FAMILY HISTORY: Noncontributory. SOCIAL HISTORY: He lives in senior care. Does not smoke or drink alcohol. PHYSICAL EXAMINATION: VITAL SIGNS: Blood pressure is 142/73, pulse is 53, respirations 18, and he is afebrile. HEAD AND NECK: Showed no jugular venous distention. LUNGS: Clear. CARDIOVASCULAR: Shows regular S1 and S2 with no gallop or murmur. ABDOMEN: Soft. EXTREMITIES: No pitting edema. LABORATORY AND DIAGNOSTIC DATA: His EKG showed sinus bradycardia at the rate of 53 with left ventricular hypertrophy with nonspecific T-wave abnormalities. Labs show white count of 6.8, hemoglobin 11.2, hematocrit 35, and platelet count is 211,000. Sodium 141, potassium 3.8, BUN of 44, creatinine of 2, and glucose of 126. Troponin is 0.114. BNP is 1191. His echocardiogram showed ejection fraction of 55% to 60% with no pericardial effusion. ASSESSMENT AND PLAN: 1. Hypertension. The patient is on amlodipine 10 mg daily and hydralazine 50 mg every 8 hours. He is also on p.r.n. minoxidil. 2. Bradycardia. Keep the patient off any sinus or AV maricruz blocking agents. We will check a thyroid function test. 3. Diabetes. 4. Renal insufficiency with creatinine of 2.5. Further evaluation by Dr. Farr. 5. Troponin leak. The patient does not have any chest pain likely due to renal failure and have a repeat cardiac enzymes. EKG does not show any acute ST-T wave abnormalities. The patient does not have any chest pain. Avoid beta-toby for bradycardia. Continue the patient on Plavix and discontinue aspirin. 6. The patient is also on Eliquis 2.5 mg b.i.d. The patient is in sinus rhythm. I am not sure if this is because of atrial fibrillation or because of DVT, but we will investigate that further. Thank you very much for allowing me to participate in the care of this patient. Please do not hesitate to contact me for any questions regarding my evaluation. Castillo Bazan M.D. DR: BELLO JOB#: [id number] CC:
[2019-02-20] VITALS: BP 126/57
--- NOTE | 2019-02-20 03:45 | History and Physical Report ---
DATE OF ADMISSION: 02/18/2019 HISTORY OF PRESENT ILLNESS: The patient admitted for bradycardia, elevated troponin, elevated blood pressure, , and acute renal failure. The patient also complains of nausea. Denies vomiting. Denies headache. Denies dizziness or shortness of breath. Denies cough. PAST MEDICAL HISTORY: Significant for hypertension, hyperlipidemia, NIDDM, hypothyroidism, chronic renal insufficiency, constipation, BPH. PAST SURGICAL HISTORY: Ear surgery, brain surgery, left shoulder surgery, cholecystectomy, both foot surgery. ALLERGIES: No known allergies. MEDICATIONS: Finasteride, Colace, Plavix, clonidine, Lipitor, aspirin, Flomax. FAMILY HISTORY: Noncontributory. SOCIAL HISTORY: Denies history of smoking, alcohol, or illicit drugs. Comes from a longterm. REVIEW OF SYSTEMS: HEENT: Denies headaches. RESPIRATORY: Denies shortness of breath. Denies cough. CARDIOVASCULAR: Denies chest pain or orthopnea. GASTROINTESTINAL: Denies nausea, vomiting, or diarrhea. EXTREMITIES: He does have generalized mild pain. CENTRAL NERVOUS SYSTEM: No change in speech pattern. PHYSICAL EXAMINATION: VITAL SIGNS: Temperature is 98.1, pulse is 54, blood pressure is 154/73. HEENT: PERRLA. NECK: Supple. LUNGS: Clear to auscultation. CARDIOVASCULAR: Bradycardic. GASTROINTESTINAL: Soft, nontender. No organomegaly. EXTREMITIES: 1+ edema. Reflexes in both sides. Generalized weakness and reflexes in both sides. LABORATORY DATA: WBC of 8.8, hemoglobin 12.2, platelets 228,000. Sodium 138, potassium 4.8, glucose of 179, BUN of 48, creatinine of 2.2. Troponin 0.114. No significant EKG changes. ASSESSMENT: 1. Acute renal failure. 2. Hypertension. 3. Bradycardia. 4. Elevated troponin. PLAN: I have asked the following consultants to see the patient for the above-mentioned diagnoses and treatment, namely Dr. Farr and Dr. Bazan. Oni Schilling M.D. DR: ZENAIDA JOB#: [id number] CC:
[2019-02-20 04:00] VITALS: BP 148/62
[2019-02-20] MEDS: NovoLOG Insulin Flexpen SUBQ SCH ×2 (05:56→12:20)
[2019-02-20] MEDS: HydrALAZINE 50mg tab ORAL SCH (05:59)
[2019-02-20 06:36] LABS: BASOPHILS % (AUTO) 0.8 % (0.0-2.0); EOSINOPHILS % (AUTO) 4.6 % (0.0-3.0); HEMATOCRIT 34.8 % (42.0-52.0); HEMOGLOBIN 11.7 G/DL (14.2-18.0); LYMPHOCYTES % (AUTO) 27.4 % (20.0-45.0); MEAN CORPUSCULAR VOLUME 92 FL (80-99); MONOCYTES % (AUTO) 8.5 % (1.0-10.0); NEUTROPHILS % (AUTO) 58.7 % (45.0-75.0); PLATELET COUNT 208 K/UL (150-450); RED BLOOD COUNT 3.79 M/UL (4.70-6.10); RED CELL DISTRIBUTION WIDTH 11.8 % (11.6-14.8); WHITE BLOOD COUNT 8.2 K/UL (4.8-10.8)
[2019-02-20 07:08] LABS: ALANINE AMINOTRANSFERASE 21 U/L (12-78); ALBUMIN 2.7 G/DL (3.4-5.0); ALBUMIN/GLOBULIN RATIO 0.7 (1.0-2.7); ALKALINE PHOSPHATASE 117 U/L (46-116); ANION GAP 8 mmol/L (5-15); ASPARTATE AMINO TRANSFERASE 20 U/L (15-37); BILIRUBIN,TOTAL 0.3 MG/DL (0.2-1.0); BLOOD UREA NITROGEN 44 mg/dL (7-18); CALCIUM 8.5 MG/DL (8.5-10.1); CARBON DIOXIDE 26 MMOL/L (21-32); CHLORIDE 106 MMOL/L (98-107); CREATININE 2.3 MG/DL (0.55-1.30); PHOSPHORUS 4.1 MG/DL (2.5-4.9); SODIUM 140 MMOL/L (136-145)
--- NOTE | 2019-02-20 07:18 | Cardiology Progress Note ---
Assessment/Plan Status: stable Assessment/Plan ASSESSMENT AND PLAN: 1. Hypertension. The patient is on amlodipine 10 mg daily and hydralazine 50 mg every 8 hours. He is also on p.r.n. minoxidil. 2. Bradycardia. Keep the patient off any sinus or AV maricruz blocking agents. We will check a thyroid function test. 3. Diabetes. 4. Renal insufficiency with creatinine of 2.5. Further evaluation by Dr. Farr. Renal ultrasound completed 5. Troponin leak. The patient does not have any chest pain likely due to renal failure and have a repeat cardiac enzymes. EKG does not show any acute ST-T wave abnormalities. The patient does not have any chest pain. Avoid beta-toby for bradycardia. Continue the patient on Plavix and discontinue aspirin. Outpatient stress test, Echo with no wall motion abnormality 6. The patient is also on Eliquis 2.5 mg b.i.d. The patient is in sinus rhythm. Subjective Cardiovascular: Reports: no symptoms Respiratory: Reports: no symptoms Gastrointestinal/Abdominal: Reports: no symptoms Genitourinary: Reports: no symptoms Subjective COVERAGE FOR TOLUIE NO acute events, BP better controlled, no CP. TTE with normal LV function Objective Last 24 Hour Vital Signs Date Time Temp Pulse Resp B/P (MAP) Pulse Ox O2 Delivery O2 Flow Rate FiO2 02/20/19 05:59 148/62 02/20/19 04:00 59 02/20/19 04:00 97.5 58 20 148/62 (90) 98 02/20/19 00:00 97.3 56 18 126/57 (80) 97 02/20/19 00:00 53 02/19/19 21:57 151/67 02/19/19 21:00 Room Air 02/19/19 20:00 53 02/19/19 20:00 98.8 60 18 151/67 (95) 98 02/19/19 16:00 98.1 55 18 128/60 (82) 99 02/19/19 16:00 52 02/19/19 13:33 143/72 02/19/19 12:00 62 02/19/19 12:00 98.8 60 18 157/67 (97) 98 02/19/19 09:42 54 154/73 02/19/19 09:00 Room Air 02/19/19 08:00 56 02/19/19 08:00 98.1 54 18 154/73 (100) 98 General Appearance: no apparent distress, alert EENT: PERRL/EOMI, normal ENT inspection, TMs normal, pharynx normal Neck: non-tender, normal alignment, supple, normal inspection, no JVD Rhythm: NSR Cardiovascular: normal peripheral pulses, normal rate, regular rhythm Respiratory/Chest: chest wall non-tender, lungs clear Abdomen: normal bowel sounds, non tender Extremities: normal range of motion, non-tender, normal inspection Neurologic: 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 alarm 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 II-XII grossly normal, no motor/sensory deficits Intake and Output 02/19/19 02/20/19 19:00 07:00 Intake Total 720 ml 1095.83 ml Output Total 900 ml 750 ml Balance -180 ml 345.83 ml Intake Oral 720 ml 480 ml IV Total 615.83 ml Output Urine Total 900 ml 750 ml # Voids 2 # Bowel Movements 1 Laboratory Tests Test 02/19/19 12:00 02/20/19 05:00 Urine Color Pale yellow Urine Appearance Very cloudy Urine pH 6 (4.5-8.0) Urine Specific [place] 1.010 (1.005-1.035) Urine Protein 3+ (NEGATIVE) H Urine Glucose (UA) Negative (NEGATIVE) Urine Ketones Negative (NEGATIVE) Urine Blood 2+ (NEGATIVE) H Urine Nitrite Negative (NEGATIVE) Urine Bilirubin Negative (NEGATIVE) Urine Urobilinogen Normal MG/DL (0.0-1.0) Urine Leukocyte Esterase 3+ (NEGATIVE) H Urine RBC 0-2 /HPF (0 - 0) H Urine WBC Tntc /HPF (0 - 0) H Urine Squamous Epithelial Cells None /LPF (NONE/OCC) Urine Bacteria Many /HPF (NONE) H Urine Eosinophils Few seen (NONE SEEN) Urine Random Sodium 88 mmol/L (20-110) White Blood Count 8.2 K/UL (4.8-10.8) Red Blood Count 3.79 M/UL (4.70-6.10) L Hemoglobin 11.7 G/DL (14.2-18.0) L Hematocrit 34.8 % (42.0-52.0) L Mean Corpuscular Volume 92 FL (80-99) Mean Corpuscular Hemoglobin 30.9 PG (27.0-31.0) Mean Corpuscular Hemoglobin Concent 33.5 G/DL (32.0-36.0) Red Cell Distribution Width 11.8 % (11.6-14.8) Platelet Count 208 K/UL (150-450) Mean Platelet Volume 7.8 FL (6.5-10.1) Neutrophils (%) (Auto) 58.7 % (45.0-75.0) Lymphocytes (%) (Auto) 27.4 % (20.0-45.0) Monocytes (%) (Auto) 8.5 % (1.0-10.0) Eosinophils (%) (Auto) 4.6 % (0.0-3.0) H Basophils (%) (Auto) 0.8 % (0.0-2.0) Sodium Level 140 MMOL/L (136-145) Potassium Level 4.0 MMOL/L (3.5-5.1) Chloride Level 106 MMOL/L (98-107) Carbon Dioxide Level 26 MMOL/L (21-32) Anion Gap 8 mmol/L (5-15) Blood Urea Nitrogen 44 mg/dL (7-18) H Creatinine 2.3 MG/DL (0.55-1.30) H Estimat Glomerular Filtration Rate 28.9 mL/min (>60) Glucose Level 84 MG/DL (74-106) Uric Acid 4.7 MG/DL (2.6-7.2) Calcium Level 8.5 MG/DL (8.5-10.1) Phosphorus Level 4.1 MG/DL (2.5-4.9) Magnesium Level 2.1 MG/DL (1.8-2.4) Total Bilirubin 0.3 MG/DL (0.2-1.0) Aspartate Amino Transf (AST/SGOT) 20 U/L (15-37) Alanine Aminotransferase (ALT/SGPT) 21 U/L (12-78) Alkaline Phosphatase 117 U/L (46-116) H Troponin I Pending Total Protein 6.4 G/DL (6.4-8.2) Albumin 2.7 G/DL (3.4-5.0) L Globulin 3.7 g/dL Albumin/Globulin Ratio 0.7 (1.0-2.7) L Microbiology Date/Time Source Procedure Growth Status 02/19/19 12:00 Urine,Clean Catch Urine Culture - Preliminary Gram Negative Kan Resulted 02/18/19 18:38 Rectum Received Carlton Otoole MD Feb 20, 2019 07:17
--- NOTE | 2019-02-20 07:26 | NUR ---
NURSE NOTES: Left message with Dr. Bazan regarding pt's troponin level of 0.133; awaiting response.
--- NOTE | 2019-02-20 07:26 | NUR ---
HAND-OFF: Report given to LOU Ching.
--- NOTE | 2019-02-20 07:30 | NUR ---
NURSE NOTES: Received report from LOU Landry. Pt is lying comfortably in semi-fowlers. No signs of distress noted. A+O4, denies pain/SOB. IV site is patent and intact. Respirations are even and unlabored on room air. Kessler in place, patent, and draining to gravity at foot of bed. Bed is at lowest position, brakes engaged, siderails x2, bed alarm on, and call light within reach. Pt is in stable condition at this time; will continue to monitor. Addendum: 02/20/19 at 0731 by LEE CUEVAS RN CORRECTION: Patient does not have kessler catheter
--- NOTE | 2019-02-20 08:02 | NUR ---
NURSE NOTES: Dr. Otoole aware of elevated troponin level this morning. No new orders given.
[2019-02-20 08:07] VITALS: BP 154/70
--- NOTE | 2019-02-20 08:42 | NUR ---
DISCHARGE PLANNed DISCHARGE ORDER NOTED patient will be returning to: [facility] ROOM [address] LONG-TERM T: [phone] FOR NURSE TO NURSE REPORT [facility] HAS BEEN ARRANGED FOR 1300 [employer]ICE ESTIMATOR (PER NURSING HOMES REQUEST) TRANSFER FORM COMPLETED
[2019-02-20] MEDS: Docusate 100mg cap ORAL SCH ×2 (09:00→13:00)
[2019-02-20] MEDS: Miralax 17gm pkt ORAL SCH (09:00)
[2019-02-20] MEDS: sitaGLIPtin 50mg tab ORAL SCH (09:08)
[2019-02-20] MEDS: Eliquis 2.5mg tablet ORAL SCH (09:09)
[2019-02-20] MEDS: Ascorbic Acid 500mg tab ORAL SCH (09:09)
--- NOTE | 2019-02-20 10:47 | NUR ---
NURSE NOTES: Pt had 11 beats of v-tach, asymptomatic. Dr. Otoole made aware and said it is still okay to d/c; no new orders given.
[2019-02-20 12:00] VITALS: BP 135/69
--- NOTE | 2019-02-20 12:42 | NUR ---
NURSE NOTES: Report given to Elsy at [facility]
--- NOTE | 2019-02-20 14:24 | Nephrology Progress Note ---
Assessment/Plan Problem List: (1) Renal failure (ARF), acute on chronic (2) Symptomatic bradycardia (3) Hypertensive urgency, malignant (4) Elevated troponin (5) Hypothyroid Assessment Acute Renal failure Possibly underlying CKD : HTN DM Hypertensive Emergency Bradycardia Elevated troponin I DM : High A1c Plan BP management Slow Hydrate Kidney MARCO A noted 2D Echo noted Avoid nephrotoxics Per orders Subjective ROS Limited/Unobtainable: No Constitutional: Reports: malaise Objective Objective Last 24 Hour Vital Signs Date Time Temp Pulse Resp B/P (MAP) Pulse Ox O2 Delivery O2 Flow Rate FiO2 02/20/19 09:09 58 154/70 02/20/19 09:00 Room Air 02/20/19 08:07 97.4 58 20 154/70 (98) 99 02/20/19 08:00 55 02/20/19 05:59 148/62 02/20/19 04:00 59 02/20/19 04:00 97.5 58 20 148/62 (90) 98 02/20/19 00:00 97.3 56 18 126/57 (80) 97 02/20/19 00:00 53 02/19/19 21:57 151/67 02/19/19 21:00 Room Air 02/19/19 20:00 53 02/19/19 20:00 98.8 60 18 151/67 (95) 98 02/19/19 16:00 98.1 55 18 128/60 (82) 99 02/19/19 16:00 52 Intake and Output 02/19/19 02/20/19 19:00 07:00 Intake Total 720 ml 1095.83 ml Output Total 900 ml 750 ml Balance -180 ml 345.83 ml Intake Oral 720 ml 480 ml IV Total 615.83 ml Output Urine Total 900 ml 750 ml # Voids 2 # Bowel Movements 1 Laboratory Tests 02/20/19 05:00: White Blood Count 8.2, Red Blood Count 3.79L, Hemoglobin 11.7L, Hematocrit 34.8L , Mean Corpuscular Volume 92, Mean Corpuscular Hemoglobin 30.9, Mean Corpuscular Hemoglobin Concent 33.5, Red Cell Distribution Width 11.8, Platelet Count 208, Mean Platelet Volume 7.8, Neutrophils (%) (Auto) 58.7, Lymphocytes (% ) (Auto) 27.4, Monocytes (%) (Auto) 8.5, Eosinophils (%) (Auto) 4.6H, Basophils (%) (Auto) 0.8, Sodium Level 140, Potassium Level 4.0, Chloride Level 106, Carbon Dioxide Level 26, Anion Gap 8, Blood Urea Nitrogen 44H, Creatinine 2.3H, Estimat Glomerular Filtration Rate 28.9, Glucose Level 84, Uric Acid 4.7, Calcium Level 8.5, Phosphorus Level 4.1, Magnesium Level 2.1, Total Bilirubin 0.3, Aspartate Amino Transf (AST/SGOT) 20, Alanine Aminotransferase (ALT/SGPT) 21, Alkaline Phosphatase 117H, Troponin I 0.133H, Total Protein 6.4, Albumin 2.7L, Globulin 3.7, Albumin/Globulin Ratio 0.7L Height (Feet): 5 Height (Inches): 9.00 Weight (Pounds): 203 General Appearance: no apparent distress Cardiovascular: bradycardia Abdomen: soft Rafa Farr MD Feb 20, 2019 14:24
[2019-02-20] MEDS ORDERED: 1/2 NS 1000ml IV ONE (15:09)
--- NOTE | 2019-02-20 15:10 | NUR ---
NURSE NOTES: Discharge packet printed, explained, and signed by patient. Inter facility transfer packet given to [facility]. Pt signed belongings list and left with cell phone and mortgage loan specialist. supervisor ski production, iv, and wristband removed. Pt discharged safely from floor with [facility] transport. Pt in stable condition.
[2019-02-20] MEDS ORDERED: Tamsulosin 0.4mg cap ORAL SCH (18:00)
--- NOTE | 2019-02-21 07:09 | Discharge Summary ---
Discharge Summary Discharge Summary _ DATE OF ADMISSION: 02/18/2019 DATE OF DISCHARGE: 02/20/2019 DISCHARGED BY: Dr. Oni Weinstein CONSULTANTS: Dr. Rafa Bazan BRIEF HOSPITAL COURSE: Patient is a 63-year-old male, who presented to ED via EMS due to report of persistent high blood pressure. The patient does not have full knowledge of his medical history. He presented from nursing facility and was reportedly given clonidine. He denied chest pain, or headache. He had mild lethargy and fatigue. He denied any focal weakness. Denied any neck pain or photophobia. On evaluation at the ED, blood pressure was elevated to 180/80, pulse rate was 54. Blood work showed elevated troponin 0 0.114. Creatinine was 2.2 and BUN 48. EKG showed sinus bradycardia. Chest x-ray did not show any acute process. He was given aspirin. He was then admitted for evaluation of malignant hypertension, elevated troponin, kidney injury and bradycardia. He was admitted to telemetry. He was continued on prior meds. Stained Glass Window Designer was consulted. Blood sugar and blood pressure were monitored. Losartan was discontinued. He was given amlodipine 10 mg daily, hydralazine 50 mg every 8 hours and prn minoxidil. Patient had bradycardia and had been off any sinus or AV maricruz blocking agents. Cardiac enzymes were monitored. Levels were flat. EKG did not show any acute STT wave abnormalities. He was given Plavix. Aspirin was discontinued. Echocardiogram done did not show any wall motion abnormality. EF 55 to 60%. TSH was normal. Kidney function was monitored. Patient presented with acute renal failure with possible underlying chronic kidney disease due to hypertension and diabetes mellitus. He was given slow IV hydration. Kidney ultrasound showed normal cortical echogenicity. He was given magnesium and folic acid supplements. Lipid panel showed cholesterol level of 88, LDL 43. He was continued on yes how Blood pressure improved. He was discharged back to [facility]. FINAL DIAGNOSES: Hypertensive urgency, malignant Acute on chronic renal failure Elevated troponin due to troponin leak Hypothyroidism Bradycardia Underlying chronic kidney disease due to diabetes and hypertension DISPOSITION: Patient was discharged to a SNF. DISCHARGE MEDICATIONS: Refer to Discharge Medication List. I have been assigned to complete a discharge summary on this account, I was not involved with the patient's management. Maryjane Cha NP Feb 21, 2019 07:09
--- NOTE | 2019-02-21 17:48 | Cardiology Report ---
APPROVED REPORT EKG Measurement Heart [id number] Sinus bradycardia Moderate voltage criteria for LVH, may be normal variant Nonspecific T wave abnormality Abnormal ECG
== END 2019-02-20 15:10 | DRG 305 ==
LOC: EDBD 15:53 → EMR 16:22 → 2E 17:21 → EDBEDREQ 17:34 → EMR 18:54
DX: I16.0 Hypertensive urgency (principal); N17.9 Acute kidney failure, unspecified; N18.9 Chronic kidney disease, unspecified; R74.8 Abnormal levels of other serum enzymes; E03.9 Hypothyroidism, unspecified; R00.1 Bradycardia, unspecified; I13.10 Hypertensive heart and chronic kidney disease without heart failure, with stage 1 through stage 4 chronic kidney disease, or unspecified chronic kidney disease; E11.22 Type 2 diabetes mellitus with diabetic chronic kidney disease; Z86.73 Personal history of transient ischemic attack (TIA), and cerebral infarction without residual deficits; Z79.01 Long term (current) use of anticoagulants
CPT/HCPCS: 36415; 71045; 76770; 80053; 80061; 81001; 82550; 82553; 82607; 82746; 82977; 83036; 83690; 83735; 83880; 84100; 84300; 84443; 84484; 84550; 85025; 86140; 87081; 87086; 87181; 89050; 93005; 93306; 99285; J1815

== ENCOUNTER 2019-08-03 11:22 | Inpatient (IN) | payer MEDICAID ==
[~2019-08-03] VITALS: Ht 175.3 cm; Wt 90.7 kg
[~2019-08-03 11:22] MED LIST changes: +CATAPRES0.1 MG ORAL; +LANTUS SOL100 UNIT/1 SUBQ; +MULTIVITAMINS1 EAC2 ORAL; +PLAVIX75 MG ORAL
[2019-08-03] MEDS ORDERED: DiphenhydrAMINE 50mg/ml Inj IVP ONE (11:30)
[2019-08-03] MEDS ORDERED: Pantoprazole Inj IV ONE (11:30)
[2019-08-03] MEDS ORDERED: Metoclopramide 10mg/2ml Inj IVP ONE (11:30)
[2019-08-03] MEDS ORDERED: AMLODIPINE BESYL5 MG ORAL (11:34)
[2019-08-03] MEDS ORDERED: AMARYL2 MG ORAL (11:34)
[2019-08-03] MEDS ORDERED: VITAMIN C500 M1 ORAL (11:34)
[2019-08-03] MEDS ORDERED: COUMADIN10 MG ORAL (11:34)
[2019-08-03] MEDS ORDERED: GLUCAGON EMERGEN1 MG IJ (11:34)
[2019-08-03 11:56] LABS: BASOPHILS % (AUTO) 0.9 % (0.0-2.0); EOSINOPHILS % (AUTO) 4.8 % (0.0-3.0); HEMATOCRIT 33.4 % (42.0-52.0); HEMOGLOBIN 11.5 G/DL (14.2-18.0); LYMPHOCYTES % (AUTO) 22.1 % (20.0-45.0); MEAN CORPUSCULAR VOLUME 89 FL (80-99); MONOCYTES % (AUTO) 7.9 % (1.0-10.0); NEUTROPHILS % (AUTO) 64.4 % (45.0-75.0); PLATELET COUNT 220 K/UL (150-450); RED BLOOD COUNT 3.75 M/UL (4.70-6.10); RED CELL DISTRIBUTION WIDTH 11.1 % (11.6-14.8); WHITE BLOOD COUNT 8.1 K/UL (4.8-10.8)
[2019-08-03 12:02] LABS: INR 1.8 (0.9-1.1)
[2019-08-03 12:04] VITALS: BP 152/65
[2019-08-03 12:06] LABS: ANION GAP 9 mmol/L (5-15); BLOOD UREA NITROGEN 59 mg/dL (7-18); CALCIUM 8.1 MG/DL (8.5-10.1); CARBON DIOXIDE 25 MMOL/L (21-32); CHLORIDE 108 MMOL/L (98-107); CREATININE 2.3 MG/DL (0.55-1.30); POTASSIUM 5.3 MMOL/L (3.5-5.1); SODIUM 142 MMOL/L (136-145)
[2019-08-03 12:10] LABS: ALANINE AMINOTRANSFERASE 46 U/L (12-78); ALBUMIN 3.1 G/DL (3.4-5.0); ALBUMIN/GLOBULIN RATIO 0.8 (1.0-2.7); ALKALINE PHOSPHATASE 124 U/L (46-116); ASPARTATE AMINO TRANSFERASE 34 U/L (15-37); BILIRUBIN,TOTAL 0.3 MG/DL (0.2-1.0); CREATINE KINASE 110 U/L (26-308)
--- NOTE | 2019-08-03 12:12 | Emergency Room Report ---
History of Present Illness General Chief Complaint: Gastrointestinal Bleed Source: Patient Present Illness HPI Patient has been spitting out blood for 2 days. The patient is on Coumadin after suffering a stroke. The patient denies any nausea or melena. He says he has been swallowing some of the blood. He denies any abdominal pain. The halfway facility assumed that he was vomiting this up. He denies this. Patient wears plates/dentures. He states he has not taken them out for a long time. He denies any pain. He denies any chest pain, shortness of breath, orthopnea or hemoptysis. He denies fevers or chills. Patient status post stroke with left-sided weakness. Patient is anticoagulated on Coumadin. History of diabetes. 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 facility Reviewed Nursing Documentation: PMH: Agreed; PSxH: Agreed Nursing Documentation-PM Past Medical History: No History, Except For Hx Hypertension: Yes Hx Diabetes: Yes Hx Cancer: No Hx Gastrointestinal Problems: No Hx Neurological Problems: Yes Hx Cerebrovascular Accident: Yes - Hemiplegia, Hemiparesis, affects L side Review of Systems All Other Systems: negative except mentioned in HPI Physical Exam Vital Signs Date Time Temp Pulse Resp B/P (MAP) Pulse Ox O2 Delivery O2 Flow Rate FiO2 08/03/19 11:23 98.4 64 16 154/74 (100) 97 Room Air Sp02 EP Interpretation: reviewed, normal General Appearance: no apparent distress, alert, Chronically Ill Head: normocephalic, atraumatic Eyes: bilateral eye normal inspection, bilateral eye PERRL, bilateral eye EOMI ENT: normal pharynx, moist mucus membranes - Poor dentition, other - bleeding lesion under tongue, near inner mandible Neck: supple Respiratory: lungs clear, normal breath sounds Cardiovascular #1: regular rate, rhythm Cardiovascular #2: 2+ radial (L) Gastrointestinal: normal inspection, normal bowel sounds, non tender Genitourinary: no CVA tenderness Musculoskeletal: other - Atrophy left arm Neurologic: alert, it infrastructure manager III-XII nml as tested, sensory intact, motor weakness - Left hemiparesis, oriented - X2 Psychiatric: mood/affect normal Skin: no rash, normal color, warm/dry, other - Skin tears right arm Procedures Critical Care Time Critical Care Time Total Critical Care Time: 90 min bedside evaluation and treatment excludes procedures (EKG). Reason for critical care: Oral hemorrhage, anticoagulation, elevated troponin Possible complications: hypotension, hypertension, MA, shock, arrhythmias, metabolic acidosis, end organ damage, respiratory failure. Interventions: Transfusion fresh frozen plasma, Gelfoam, tranexamic acid, repeat evaluations, DDAVP, repeat EKG, nitroglycerin paste Course: Patient presents with alleged upper GI bleed. Patient is on Coumadin and fresh frozen plasma ordered from lab with direct conversation. Positive troponin call. As active bleeding aspirin, anticoagulation unable to be started. In addition patient bradycardic intermittently and metoprolol contraindicated. After nitroglycerin paste applied EKG repeated and improved. RN notes bleeding source is in the mouth. Gelfoam applied. Continue bleeding. DDAVP ordered. Fresh frozen plasma infusing without difficulty. Continue oozing. Tranexamic make acid ordered and applied to the area. Bleeding decreased significantly. Consultations: nursing staff, EMS, blood bank, admitting physician Performed by: Dr. Merida Tolerated well condition = serious Medical Decision Making Diagnostic Impression: Primary Impression: Oral hemorrhage Additional Impressions: Prolonged INR NSTEMI (non-ST elevated myocardial infarction) Renal failure (ARF), acute on chronic Qualified Codes: N17.9 - Acute kidney failure, unspecified; N18.3 - Chronic kidney disease, stage 3 (moderate) Urinary tract infection Qualified Codes: N39.0 - Urinary tract infection, site not specified ER Course Patient presents with possible GI bleed. Patient is taking Coumadin. Differential includes gastritis, esophageal varices, peptic ulcer disease amongst others. Patient evaluated with EKG, chest x-ray, abdominal film and labs. IV hydration begun. Because the patient is on Coumadin immediate moved to transfuse fresh frozen plasma started. In addition to Protonix given. Called blood bank to arrange for transfusion of 4 units of fresh frozen plasma. EKG sinus rhythm with nonspecific ST-T wave changes with T wave inversion inferiorly. Labs with normal white count. Hemoglobin of 11. INR 1.8. Renal failure with creatinine of 2.3 which is consistent with prior higher values. Chest x-ray no infiltrates. Abdomen nonspecific bowel gas pattern. RN notes that patient denies vomiting blood. RN notes that the bleeding is coming from the mouth. Examined patient and lesion found. Plates are removed. Pressure applied with 4 x 4's. Called with positive troponin. Unable to give aspirin, metoprolol or lovenox as uncontrolled bleeding. Nitro-Bid ordered. Second EKG with correction of inferior T waves. Still not STEMI. Gelfoam applied topically. Bleeding better after Gelfoam, but still ooze. DDAVP ordered as renal insufficiency. Still with oozing. TXA topically applied. 4th unit FFP infusing. Patient tolerating well. Bleeding decreased. Still denies chest pain. Patient admitted to stepdown unit. Discussed with admitting physician. Urinalysis returns after patient admitted with pyuria. Suggested Rocephin. Called to SDU to obtain order. Laboratory Tests Test 08/03/19 11:25 08/03/19 14:20 White Blood Count 8.1 K/UL (4.8-10.8) Red Blood Count 3.75 M/UL (4.70-6.10) L Hemoglobin 11.5 G/DL (14.2-18.0) L Hematocrit 33.4 % (42.0-52.0) L Mean Corpuscular Volume 89 FL (80-99) Mean Corpuscular Hemoglobin 30.7 PG (27.0-31.0) Mean Corpuscular Hemoglobin Concent 34.4 G/DL (32.0-36.0) Red Cell Distribution Width 11.1 % (11.6-14.8) L Platelet Count 220 K/UL (150-450) Mean Platelet Volume 6.2 FL (6.5-10.1) L Neutrophils (%) (Auto) 64.4 % (45.0-75.0) Lymphocytes (%) (Auto) 22.1 % (20.0-45.0) Monocytes (%) (Auto) 7.9 % (1.0-10.0) Eosinophils (%) (Auto) 4.8 % (0.0-3.0) H Basophils (%) (Auto) 0.9 % (0.0-2.0) Prothrombin Time 18.1 SEC (9.30-11.50) H Prothrombin Time INR 1.8 (0.9-1.1) H PTT 36 SEC (23-33) H Sodium Level 142 MMOL/L (136-145) Potassium Level 5.3 MMOL/L (3.5-5.1) H Chloride Level 108 MMOL/L (98-107) H Carbon Dioxide Level 25 MMOL/L (21-32) Anion Gap 9 mmol/L (5-15) Blood Urea Nitrogen 59 mg/dL (7-18) H Creatinine 2.3 MG/DL (0.55-1.30) H Estimate Glomerular Filtration Rate 28.8 mL/min (>60) Glucose Level 203 MG/DL (74-106) H Calcium Level 8.1 MG/DL (8.5-10.1) L Total Bilirubin 0.3 MG/DL (0.2-1.0) Aspartate Amino Transferase (AST) 34 U/L (15-37) Alanine Aminotransferase (ALT) 46 U/L (12-78) Alkaline Phosphatase 124 U/L (46-116) H Total Creatine Kinase 110 U/L (26-308) Troponin I 2.059 ng/mL (0.000-0.056) Total Protein 7.1 G/DL (6.4-8.2) Albumin 3.1 G/DL (3.4-5.0) L Globulin 4.0 g/dL Albumin/Globulin Ratio 0.8 (1.0-2.7) L Lipase 508 U/L (73-393) H Urine Color Pale yellow Urine Appearance Cloudy Urine pH 5 (4.5-8.0) Urine Specific Hamer 1.015 (1.005-1.035) Urine Protein 4+ (NEGATIVE) H Urine Glucose (UA) 1+ (NEGATIVE) H Urine Ketones Negative (NEGATIVE) Urine Blood 2+ (NEGATIVE) H Urine Nitrite Negative (NEGATIVE) Urine Bilirubin Negative (NEGATIVE) Urine Urobilinogen Normal MG/DL (0.0-1.0) Urine Leukocyte Esterase 3+ (NEGATIVE) H Urine RBC 5-10 /HPF (0 - 0) H Urine WBC Tntc /HPF (0 - 0) H Urine Squamous Epithelial Cells Occasional /LPF Urine Bacteria Many /HPF (NONE) H EKG Diagnostic Results Rate: normal Rhythm: NSR ST Segments: no acute changes - ST inversions inferiorly and ST elevation, though not STEMI Rhythm Strip Diag. Results EP Interpretation: yes Rhythm: NSR, no PVC's, no ectopy Chest X-Ray Diagnostic Results Chest X-Ray Diagnostic Results : Chest X-Ray Ordered: Yes # of Views/Limited/Complete: 1 View Indication: Other EP Interpretation: Yes Interpretation: no consolidation, no effusion, no pneumothorax Impression: No acute disease Electronically Signed by: Electronically signed by Carlton Merida MD Other X-Ray Diagnostic Results Other X-Ray Diagnostic Results : X-Ray ordered: Abdomen # of Views/Limited Vs Complete: 2 View Indication: Other EP Interpretation: Yes Interpretation: nonspecific bowel gas, no sbo, other - No masses Impression: No acute disease Electronically Signed by: Electronically signed by Carlton Merida MD Last Vital Signs Date Time Temp Pulse Resp B/P (MAP) Pulse Ox O2 Delivery O2 Flow Rate FiO2 08/03/19 18:51 Room Air 08/03/19 17:38 97.9 70 153/80 (104) 18 08/03/19 17:03 18 Status: improved Disposition: ADMITTED INPATIENT Condition: Serious Referrals: Oni Schilling MD (PCP) Carlton Merida MD Aug 03, 2019 12:12
--- NOTE | 2019-08-03 12:19 | Diagnostic Imaging Report ---
EXAM: XR Abdomen, 2 Views CLINICAL HISTORY: BLD TECHNIQUE: Frontal view of the abdomen pelvis with upright view of the abdomen. COMPARISON: None FINDINGS: Hardware: None. Abdomen: Nonobstructive but nonspecific bowel gas pattern. No free air. Cholecystectomy clips in the right upper quadrant. Bones: Degenerative changes of the spine. Soft tissues: Normal. Lower chest: Mild elevation of the right hemidiaphragm. Other: Probable vascular calcifications in the pelvis. IMPRESSION: Nonobstructive but nonspecific bowel gas pattern.
--- NOTE | 2019-08-03 12:20 | Diagnostic Imaging Report ---
EXAM: XR Chest, 1 View CLINICAL HISTORY: BLD TECHNIQUE: Frontal view of the chest. COMPARISON: Chest radiograph on 02 18 2019 FINDINGS: Hardware: None. Lungs pleura: Mild elevation of the right hemidiaphragm. No focal consolidation. No pleural effusion or pneumothorax. Heart mediastinum: Normal. No cardiomegaly. Soft tissues: Unremarkable. Bones: No acute fracture. Degenerative changes of the visualized right acromioclavicular joint. Degenerative changes of the spine. Fusion hardware in the cervical spine. Upper abdomen: Normal. IMPRESSION: No acute disease identified.
[2019-08-03 13:00] VITALS: BP 166/70
[2019-08-03 13:30] VITALS: BP 158/82
[2019-08-03] MEDS ORDERED: Gelfoam Size TOPIC ONE (14:00)
[2019-08-03 14:10] VITALS: BP 166/76
[2019-08-03] MEDS ORDERED: Nitroglycerin 2% oint pkt TOPIC ONE ×2 (14:28→14:30)
[2019-08-03] MEDS ORDERED: Desmopressin (DDAVP) Inj IV ONE (15:00)
[2019-08-03 15:11] LABS: APPEARANCE,URINE CLOUDY; BILIRUBIN, URINE NEGATIVE (NEGATIVE); COLOR,URINE PALE YELLOW; GLUCOSE, URINE (UA) 1+ (NEGATIVE); KETONES,URINE NEGATIVE (NEGATIVE); LEUKOCYTE ESTERASE ,URINE 3+ (NEGATIVE); NITRITE,URINE NEGATIVE (NEGATIVE); PH,URINE 5 (4.5-8.0); PROTEIN,URINE 4+ (NEGATIVE); UROBILINOGEN,URINE NORMAL MG/DL (0.0-1.0)
[2019-08-03] MEDS ORDERED: DESMOPRESSIN IV SCH (15:30)
[2019-08-03] MEDS ORDERED: NS IV SCH (15:30)
--- NOTE | 2019-08-03 16:02 | Pulmonology Progress Note ---
Assessment/Plan Assessment/Plan Pulmonary Consultation HPI Patient is a 64 year old man with previous history of Hypertension, Diabetes, previous Cerebrovascular accident with left sided weakness, he has been vomiting up blood for 2 days. Previously on Coumadin after suffering the previous CVA stroke. Allergies: No Known Allergies Past Medical History: Hypertension, Diabetes, previous Cerebrovascular accident with left sided weakness Physical Exam Vital Signs Noted Date Time Temp Pulse Resp B/P (MAP) Pulse Ox O2 Delivery O2 Flow Rate FiO2 08/03/19 11:23 98.4 64 16 154/74 (100) 97 Room Air General: NCAT HEENT: moist mm, bleeding lesion under tongue Chest: CTAB Heart: HS1, HS2, RRR Abdomen: Soft, NT, ND Extremities: Well perfused, no edema LANDSCAPE SPECIALIST: Alert, Interactive, Left sided weakness, no seizures Impression: Upper GI bleed Oral hemorrhage Prolonged INR associated with Coumadin therapy NSTEMI (non-ST elevated myocardial infarction) Renal failure (ARF), acute on chronic Elevated Lipase Hypertension Diabetes Previous CVA Plan Transfuse FFP, PRBC PRN DC Coumadin IVF Oxygen PRN Protonix IV CRIMPER ASSEMBLER medications ISS Monitor labs Presents with upper GI bleed. Patient is taking Coumadin. Nitro-Bid, SL Nitrates PRN. EKG: Rate: normal Rhythm: NSR ST Segments: no acute changes CXR: no acute changes AXR: non specific bowel gas pattern Subjective ROS Limited/Unobtainable: No Allergies: Coded Allergies: No Known Allergies (Unverified , 10/07/17) Objective Last 24 Hour Vital Signs Date Time Temp Pulse Resp B/P (MAP) Pulse Ox O2 Delivery O2 Flow Rate FiO2 08/03/19 15:20 98.5 60 14 08/03/19 15:05 98.5 56 16 08/03/19 14:29 166/76 08/03/19 14:10 98.2 64 18 166/76 98 Room Air 08/03/19 14:10 98.2 57 18 08/03/19 13:55 98.3 59 15 08/03/19 13:40 98.2 64 19 08/03/19 13:30 98.2 66 18 08/03/19 13:30 98.2 64 18 158/82 98 Room Air 08/03/19 13:15 98.2 58 16 08/03/19 13:00 98.7 67 16 08/03/19 13:00 98.7 64 16 166/70 98 Room Air 08/03/19 12:04 64 16 Room Air 08/03/19 12:04 98.4 64 16 152/65 98 Room Air 08/03/19 11:23 98.4 64 16 154/74 (100) 97 Room Air Laboratory Tests 08/03/19 11:25: White Blood Count 8.1, Red Blood Count 3.75L, Hemoglobin 11.5L, Hematocrit 33.4L , Mean Corpuscular Volume 89, Mean Corpuscular Hemoglobin 30.7, Mean Corpuscular Hemoglobin Concent 34.4, Red Cell Distribution Width 11.1L, Platelet Count 220, Mean Platelet Volume 6.2L, Neutrophils (%) (Auto) 64.4, Lymphocytes (%) (Auto) 22.1, Monocytes (%) (Auto) 7.9, Eosinophils (%) (Auto) 4.8H, Basophils (%) (Auto) 0.9, Prothrombin Time 18.1H, Prothromb Time International Ratio 1.8H, Activated Partial Thromboplast Time 36H, Sodium Level 142, Potassium Level 5.3H, Chloride Level 108H, Carbon Dioxide Level 25, Anion Gap 9, Blood Urea Nitrogen 59H, Creatinine 2.3H, Estimat Glomerular Filtration Rate 28.8, Glucose Level 203H, Calcium Level 8.1L, Total Bilirubin 0.3, Aspartate Amino Transf (AST/SGOT) 34, Alanine Aminotransferase (ALT/SGPT) 46, Alkaline Phosphatase 124H, Total Creatine Kinase 110, Troponin I 2.059H, Total Protein 7.1, Albumin 3.1L, Globulin 4.0, Albumin/Globulin Ratio 0.8L, Lipase 508H 08/03/19 14:20: Urine Color Pale yellow, Urine Appearance Cloudy, Urine pH 5, Urine Specific Browder 1.015, Urine Protein 4+H, Urine Glucose (UA) 1+H, Urine Ketones Negative , Urine Blood 2+H, Urine Nitrite Negative, Urine Bilirubin Negative, Urine Urobilinogen Normal, Urine Leukocyte Esterase 3+H, Urine RBC [Pending], Urine WBC [Pending], Urine Squamous Epithelial Cells [Pending], Urine Bacteria [ Pending] Current Medications Medications (Trade) Dose Ordered Sig/Leon Route PRN Reason Start Time Stop Time Status Last Admin Dose Admin Desmopressin Acetate 28 mcg/ Sodium Chloride 62 ml @ 124 mls/hr ONCE IV 08/03/19 15:30 08/03/19 16:30 08/03/19 15:15 Sodium Chloride 1,000 ml @ 300 mls/hr Q3H20M IV 08/03/19 11:30 09/02/19 11:29 08/03/19 15:35 Carlton Martin MD Aug 03, 2019 16:02
[2019-08-03 17:38] VITALS: BP 153/80
[2019-08-03] MEDS ORDERED: D5 1/2NS 1,000 ML IV SCH (19:00)
[2019-08-03 20:00] VITALS: BP 146/72
[2019-08-03] MEDS: NovoLOG Insulin Flexpen SUBQ SCH (21:00)
[2019-08-03] MEDS: Pantoprazole Inj IVP SCH (21:06)
[2019-08-04] VITALS (16 sets, daily range): BP systolic 133–163; BP diastolic 59–81
[2019-08-04] MEDS: Piperacillin/Tazobactam 3.375 GM in NS 110 ML IVPB SCH ×2 (00:13→09:26)
--- NOTE | 2019-08-04 02:30 | History and Physical Report ---
DATE OF ADMISSION: 08/03/2019 HISTORY OF PRESENT ILLNESS: The patient is from a [facility] facility, is admitted for elevated troponin as well as bloody emesis, large amount as well as coagulopathy, hyperkalemia, azotemia, acute renal failure, and elevated lipase. The patient initially on vasopressors, he is still on them. Denies nausea, vomiting, or diarrhea. No fever or chills. Denies shortness of breath. Denies cough. Denies chills. Vomited blood. The patient also has some coagulopathy as well. PAST MEDICAL HISTORY: Head trauma, hypertension, hyperlipidemia, NIDDM, , constipation, and BPH. PAST SURGICAL HISTORY: Ear surgery, brain surgery, cholecystectomy, and bilateral foot amputation. MEDICATIONS: Amlodipine, aspirin, Lipitor, vitamin D, finasteride, folic acid, losartan, Levoxyl, detemir, clonidine, Klor-Con, and Flomax. FAMILY HISTORY: Noncontributory. SOCIAL HISTORY: Denies smoking, alcohol, or illicit drugs. Comes from a prison. REVIEW OF SYSTEMS: HEENT: Denies headaches. RESPIRATORY: Denies shortness of breath. Denies cough. CARDIOVASCULAR: Denies chest pain. GI: Denies nausea, vomiting, or diarrhea. EXTREMITIES: Denies pain. CENTRAL NERVOUS SYSTEM: Denies change in vision or speech pattern. PHYSICAL EXAMINATION: VITAL SIGNS: Temperature 97.2 degrees, pulse 78, and blood pressure 133/70. HEENT: PERRLA. NECK: Supple. No lymphadenopathy. CHEST: Clear to auscultation. CARDIOVASCULAR: Regular rate and rhythm. No murmurs or extra sounds. ABDOMEN: Soft, nontender, and nondistended. No organomegaly. EXTREMITIES: No edema. Moves all four extremities. NEUROLOGIC: Sensory intact to light touch. Reflexes on both sides. ASSESSMENT AND PLAN: Coagulopathy with GI bleeding and acute renal failure. I have consulted Dr. Nate Whyte, Dr. Verdugo, Dr. Welch, Dr. Prado, Dr. Farr, Dr. Martin, and Dr. Troy Yeboah to see the patient for the above-mentioned diagnoses and treatment. Oni Schilling M.D. DR: KAROL JOB#: [id number] CC:
[2019-08-04 05:13] LABS: BASOPHILS % (AUTO) 0.6 % (0.0-2.0); EOSINOPHILS % (AUTO) 3.6 % (0.0-3.0); HEMATOCRIT 25.4 % (42.0-52.0); HEMOGLOBIN 8.8 G/DL (14.2-18.0); LYMPHOCYTES % (AUTO) 19.1 % (20.0-45.0); MEAN CORPUSCULAR VOLUME 89 FL (80-99); MONOCYTES % (AUTO) 7.9 % (1.0-10.0); NEUTROPHILS % (AUTO) 68.8 % (45.0-75.0); PLATELET COUNT 189 K/UL (150-450); RED BLOOD COUNT 2.85 M/UL (4.70-6.10); RED CELL DISTRIBUTION WIDTH 10.9 % (11.6-14.8); WHITE BLOOD COUNT 8.9 K/UL (4.8-10.8)
[2019-08-04 05:19] LABS: INR 1.4 (0.9-1.1)
[2019-08-04 05:40] LABS: ALANINE AMINOTRANSFERASE 40 U/L (12-78); ALBUMIN 3.1 G/DL (3.4-5.0); ALBUMIN/GLOBULIN RATIO 0.9 (1.0-2.7); ALKALINE PHOSPHATASE 112 U/L (46-116); ANION GAP 10 mmol/L (5-15); ASPARTATE AMINO TRANSFERASE 48 U/L (15-37); BILIRUBIN,TOTAL 0.5 MG/DL (0.2-1.0); BLOOD UREA NITROGEN 54 mg/dL (7-18); CALCIUM 8.3 MG/DL (8.5-10.1); CARBON DIOXIDE 25 MMOL/L (21-32); CHLORIDE 112 MMOL/L (98-107); CREATININE 2.2 MG/DL (0.55-1.30); POTASSIUM 4.1 MMOL/L (3.5-5.1); SODIUM 147 MMOL/L (136-145)
[2019-08-04] MEDS: NovoLOG Insulin Flexpen SUBQ SCH ×4 (06:06→20:54)
[2019-08-04] MEDS: Pantoprazole Inj IVP SCH (09:26)
--- NOTE | 2019-08-04 10:07 | Consultation ---
History of Present Illness General Date patient seen: Aug 04, 2019 Reason for Hospitalization: Gastrointestinal Bleed Present Illness HPI This is a pleasant 64-year-old male with multiple medical comorbidities history of stroke on Coumadin who presented to the emergency department at [facility] from nursing facility for evaluation of upper GI bleeding. Patient states he has had dark bloody emesis for the past 2 days prior to admission. Denies any abdominal pain or discomfort. Denies any prior abdominal surgery other than a lap dyllan. States had multiple eye and brain surgeries in the past. States currently not having any more emesis or bleeding he is aware of. Has not noted any blood in his stool. On admission tachycardic hypotensive with abnormal labs. Surgery called to evaluate and assist with care. Patient seen, patient evaluated, chart reviewed Allergies: Coded Allergies: No Known Allergies (Unverified , 10/07/17) Medication History Scheduled Amlodipine Besylate* (Amlodipine Besylate*), 5 MG ORAL DAILY, (Reported) Ascorbic Acid* (Vitamin C*), 500 MG ORAL DAILY, (Reported) Aspirin* (Aspir 81*), 81 MG ORAL DAILY, (Reported) Atorvastatin Calcium* (Atorvastatin Calcium*), 80 MG ORAL BEDTIME, (Reported) Clonidine Hcl* (Catapres*), 0.1 MG ORAL EVERY 6 HOURS, (Reported) Clopidogrel Bisulfate* (Plavix*), 75 MG ORAL DAILY, (Reported) Cranberry (Cranberry), 400 MG PO DAILY, (Reported) Docusate Sodium* (Docusate Sodium*), 100 MG ORAL TWICE A DAY, (Reported) Ergocalciferol (Vitamin D2)* (Vitamin D*), 50,000 UNIT ORAL ONCE A WEEK, ( Reported) Finasteride* (Proscar*), 5 MG ORAL DAILY, (Reported) Folic Acid* (Folic Acid*), 1 MG ORAL DAILY, (Reported) Glimepiride (Amaryl), 2 MG ORAL BEFORE BREAKFAST, (Reported) Insulin Detemir (Levemir), 0 SUBQ BEDTIME, (Reported) Levothyroxine Sodium* (Levothyroxine Sodium*), 200 MCG ORAL DAILY, (Reported) Losartan Potassium* (Losartan Potassium*), 50 MG ORAL DAILY, (Reported) Multivitamins* (Multivitamins*), 1 TAB ORAL DAILY, (Reported) Tamsulosin Hcl (Tamsulosin Hcl*), 0.4 MG ORAL BEDTIME, (Reported) Vit B Cmplx 3/Fa/Vit C/Biotin (Nephro-Kym Rx Tablet), 1 EACH PO DAILY, ( Reported) Warfarin Sod* (Coumadin*), 10 MG ORAL DAILY, (Reported) Scheduled PRN Acetaminophen* (Acetaminophen 325MG Tablet*), 650 MG ORAL Q6H PRN for Pain Scale (3-5), (Reported) Ondansetron* (Zofran*), 4 MG ORAL Q6H PRN for Nausea & Vomiting, (Reported) Polyethylene Glycol 3350* (Miralax*), 17 GM ORAL DAILY PRN for Constipation, ( Reported) Miscellaneous Medications Diclofenac Sodium (Solaraze), 100 GM TP, (Reported) Glucagon,Human Recombinant (Glucagon Emergency Kit), 1 MG IJ, (Reported) Discontinued Medications Amlodipine Besylate* (Amlodipine Besylate*), 2.5 MG ORAL DAILY, (Reported) Discontinued Reason: Medication dose changed Amoxicillin/Potassium Clav 875-125* (Augmentin 875-125 Tablet*), 1 TAB ORAL TWICE A DAY, (Reported) Discontinued Reason: Pt had allergic rxn Amoxicillin/Potassium Clav 875-125* (Augmentin 875-125 Tablet*), 1 TAB ORAL TWICE A DAY, (Reported) Discontinued Reason: Medication dose changed Apixaban (Eliquis), 2.5 MG PO BID, (Reported) Discontinued Reason: MD discontinued med Arginine (Arginine), 50 GM PO DAILY, (Reported) Discontinued Reason: Pt stopped taking med Ascorbic Acid* (Vitamin C*), 500 MG ORAL DAILY, (Reported) Discontinued Reason: discontinued med Erythromycin Base (Erythromycin*), 1 APPLIC LEFT EYE QID Discontinued Reason: MD discontinued med Gabapentin* (Gabapentin*), 300 MG ORAL BEDTIME, (Reported) Discontinued Reason: MD discontinued med Insulin Glargine (Lantus), 0 SUBQ BEDTIME, (Reported) Discontinued Reason: MD discontinued med Insulin Lispro (Humalog), 0 SUBQ, (Reported) Discontinued Reason: MD discontinued med Melatonin (Melatonin), 6 MG ORAL BEDTIME PRN for Insomnia, (Reported) Discontinued Reason: discontinued med Ofloxacin (Ofloxacin), 5 ML OT, (Reported) Discontinued Reason: discontinued med Ondansetron* (Zofran*), 4 MG ORAL Q6H PRN for Nausea & Vomiting, (Reported) Discontinued Reason: MD discontinued med Polyethylene Glycol 3350* (Miralax*), 17 GM ORAL DAILY, (Reported) Discontinued Reason: MD discontinued med Sitagliptin (Januvia), 50 MG ORAL DAILY, (Reported) Discontinued Reason: MD discontinued med Sitagliptin (Januvia), 50 MG ORAL DAILY, (Reported) Discontinued Reason: MD discontinued med Temazepam* (Restoril*), 15 MG ORAL BEDTIME PRN for Insomnia, (Reported) Discontinued Reason: MD discontinued med Tramadol Hcl* (Ultram*), 50 MG ORAL Q6H PRN for For Pain, (Reported) Discontinued Reason: MD discontinued med Patient History History Provided By: Patient Healthcare decision maker Resuscitation status Full Code Advanced Directive on File No Past Medical/Surgical History Past Medical/Surgical History: (1) HTN (hypertension) (2) Hypothyroid (3) Upper GI bleed (4) Urinary tract infection (5) Prolonged INR (6) Oral hemorrhage (7) Renal failure (ARF), acute on chronic (8) NSTEMI (non-ST elevated myocardial infarction) Review of Systems Review of Symptoms General ROS: no weight loss or fever Psychological ROS: no depression or mood changes, no memory loss Ophthalmic ROS: no visual changes or eye irritation ENT ROS: no nasal congestion, hearing loss, dizziness Allergy and Immunology ROS: no allergic symptoms or urticaria Hematological and Lymphatic ROS: no swollen glands, unusual bleeding or bruising Endocrine ROS: no polyuria, polydipsia, weight changes, temperature intolerance Respiratory ROS: no cough, shortness of breath, or wheezing Cardiovascular ROS: no chest pain or dyspnea on exertion Gastrointestinal ROS: denies abdominal pain, bright red blood in stool. Musculoskeletal ROS: no myalgias or arthralgias Neurological ROS: no TIA or stroke symptoms Dermatological ROS: no new or changing skin lesions, rashes or pruritis Physical Exam Physical Exam General appearance: alert, cooperative, no distress, appears stated age Head: Normocephalic, without obvious abnormality, atraumatic Eyes: conjunctivae/corneas clear. PERRL, EOM's intact. Fundi benign Throat: Lips, mucosa, and tongue normal. Teeth and gums normal Neck: supple, symmetrical, trachea midline, no adenopathy, thyroid: not enlarged, symmetric, no tenderness/mass/nodules, no carotid bruit and no JVD Lungs: clear to auscultation bilaterally Heart: regular rate and rhythm, S1, S2 normal, no murmur, click, rub or gallop Abdomen: soft, non-tender. Bowel sounds normal. No masses, no organomegaly Extremities: extremities normal, atraumatic, no cyanosis or edema Pulses: 2+ and symmetric Skin: Skin color, texture, turgor normal. No rashes or lesions Neurologic: Grossly normal Last 24 Hour Vital Signs Date Time Temp Pulse Resp B/P (MAP) Pulse Ox O2 Delivery O2 Flow Rate FiO2 08/04/19 08:00 Nasal Cannula 2.0 08/04/19 07:58 97.7 70 143/70 (94) 19 08/04/19 04:08 98.8 71 153/75 (101) 16 08/04/19 04:00 71 08/04/19 04:00 Nasal Cannula 2.0 08/04/19 00:00 72 08/04/19 00:00 98.2 69 145/65 (91) 18 08/04/19 00:00 Nasal Cannula 2.0 08/03/19 20:00 65 08/03/19 20:00 Nasal Cannula 2.0 08/03/19 20:00 98.1 65 146/72 (96) 18 08/03/19 18:51 Room Air 08/03/19 17:38 97.9 70 153/80 (104) 18 08/03/19 17:03 98.2 62 18 136/66 98 Room Air 08/03/19 16:35 98.1 68 16 08/03/19 16:20 98.2 66 14 08/03/19 16:05 98.1 71 18 08/03/19 15:45 98.2 68 16 08/03/19 15:20 98.5 60 14 08/03/19 15:05 98.5 56 16 08/03/19 14:29 166/76 08/03/19 14:10 98.2 64 18 166/76 98 Room Air 08/03/19 14:10 98.2 57 18 08/03/19 13:55 98.3 59 15 08/03/19 13:40 98.2 64 19 08/03/19 13:30 98.2 66 18 08/03/19 13:30 98.2 64 18 158/82 98 Room Air 08/03/19 13:15 98.2 58 16 08/03/19 13:00 98.7 67 16 08/03/19 13:00 98.7 64 16 166/70 98 Room Air 08/03/19 12:04 64 16 Room Air 08/03/19 12:04 98.4 64 16 152/65 98 Room Air 08/03/19 11:23 98.4 64 16 154/74 (100) 97 Room Air Intake and Output 08/03/19 08/04/19 19:00 07:00 Intake Total 2000 ml 492.5 ml Output Total 900 ml Balance 2000 ml -407.5 ml Intake IV Total 1000 ml 492.5 ml Blood Product 1000 ml Output Urine Total 900 ml # Voids 1 # Bowel Movements 1 Laboratory Tests Test 08/03/19 11:25 08/03/19 14:20 08/04/19 03:50 08/04/19 09:30 White Blood Count 8.1 K/UL (4.8-10.8) 8.9 K/UL (4.8-10.8) Red Blood Count 3.75 M/UL (4.70-6.10) L 2.85 M/UL (4.70-6.10) L Hemoglobin 11.5 G/DL (14.2-18.0) L 8.8 G/DL (14.2-18.0) L Hematocrit 33.4 % (42.0-52.0) L 25.4 % (42.0-52.0) L Mean Corpuscular Volume 89 FL (80-99) 89 FL (80-99) Mean Corpuscular Hemoglobin 30.7 PG (27.0-31.0) 30.9 PG (27.0-31.0) Mean Corpuscular Hemoglobin Concent 34.4 G/DL (32.0-36.0) 34.8 G/DL (32.0-36.0) Red Cell Distribution Width 11.1 % (11.6-14.8) L 10.9 % (11.6-14.8) L Platelet Count 220 K/UL (150-450) 189 K/UL (150-450) Mean Platelet Volume 6.2 FL (6.5-10.1) L 6.8 FL (6.5-10.1) Neutrophils (%) (Auto) 64.4 % (45.0-75.0) 68.8 % (45.0-75.0) Lymphocytes (%) (Auto) 22.1 % (20.0-45.0) 19.1 % (20.0-45.0) L Monocytes (%) (Auto) 7.9 % (1.0-10.0) 7.9 % (1.0-10.0) Eosinophils (%) (Auto) 4.8 % (0.0-3.0) H 3.6 % (0.0-3.0) H Basophils (%) (Auto) 0.9 % (0.0-2.0) 0.6 % (0.0-2.0) Prothrombin Time 18.1 SEC (9.30-11.50) H 15.0 SEC (9.30-11.50) H Prothromb Time International Ratio 1.8 (0.9-1.1) H 1.4 (0.9-1.1) H Activated Partial Thromboplast Time 36 SEC (23-33) H 33 SEC (23-33) Sodium Level 142 MMOL/L (136-145) 147 MMOL/L (136-145) H Potassium Level 5.3 MMOL/L (3.5-5.1) H 4.1 MMOL/L (3.5-5.1) Chloride Level 108 MMOL/L (98-107) H 112 MMOL/L (98-107) H Carbon Dioxide Level 25 MMOL/L (21-32) 25 MMOL/L (21-32) Anion Gap 9 mmol/L (5-15) 10 mmol/L (5-15) Blood Urea Nitrogen 59 mg/dL (7-18) H 54 mg/dL (7-18) H Creatinine 2.3 MG/DL (0.55-1.30) H 2.2 MG/DL (0.55-1.30) H Estimat Glomerular Filtration Rate 28.8 mL/min (>60) 30.3 mL/min (>60) Glucose Level 203 MG/DL (74-106) H 137 MG/DL (74-106) H Calcium Level 8.1 MG/DL (8.5-10.1) L 8.3 MG/DL (8.5-10.1) L Total Bilirubin 0.3 MG/DL (0.2-1.0) 0.5 MG/DL (0.2-1.0) Aspartate Amino Transf (AST/SGOT) 34 U/L (15-37) 48 U/L (15-37) H Alanine Aminotransferase (ALT/SGPT) 46 U/L (12-78) 40 U/L (12-78) Alkaline Phosphatase 124 U/L (46-116) H 112 U/L (46-116) Total Creatine Kinase 110 U/L (26-308) Troponin I 2.059 ng/mL (0.000-0.056) 8.301 ng/mL (0.000-0.056) Pending Total Protein 7.1 G/DL (6.4-8.2) 6.5 G/DL (6.4-8.2) Albumin 3.1 G/DL (3.4-5.0) L 3.1 G/DL (3.4-5.0) L Globulin 4.0 g/dL 3.4 g/dL Albumin/Globulin Ratio 0.8 (1.0-2.7) L 0.9 (1.0-2.7) L Lipase 508 U/L (73-393) H 316 U/L (73-393) Urine Color Pale yellow Urine Appearance Cloudy Urine pH 5 (4.5-8.0) Urine Specific [place] 1.015 (1.005-1.035) Urine Protein 4+ (NEGATIVE) H Urine Glucose (UA) 1+ (NEGATIVE) H Urine Ketones Negative (NEGATIVE) Urine Blood 2+ (NEGATIVE) H Urine Nitrite Negative (NEGATIVE) Urine Bilirubin Negative (NEGATIVE) Urine Urobilinogen Normal MG/DL (0.0-1.0) Urine Leukocyte Esterase 3+ (NEGATIVE) H Urine RBC 5-10 /HPF (0 - 0) H Urine WBC Tntc /HPF (0 - 0) H Urine Squamous Epithelial Cells Occasional /LPF Urine Bacteria Many /HPF (NONE) H Erythrocyte Sedimentation Rate 66 MM/HR (0-20) H Lactic Acid Level 0.50 mmol/L (0.4-2.0) C-Reactive Protein, Quantitative 0.8 mg/dL (0.00-0.90) Amylase Level 53 U/L (25-115) Microbiology Date/Time Source Procedure Growth Status 08/03/19 14:20 Urine,Clean Catch Urine Culture - Preliminary Gram Negative Bacillus 1 Resulted 08/03/19 11:50 Rectum Received Height (Feet): 5 Height (Inches): 9.00 Weight (Pounds): 200 Medications Current Medications Medications (Trade) Dose Ordered Sig/Leon Route PRN Reason Start Time Stop Time Status Last Admin Dose Admin Dextrose (Dextrose 50%) 25 ml Q30M PRN IV Hypoglycemia 08/03/19 18:15 09/02/19 18:14 Dextrose (Dextrose 50%) 50 ml Q30M PRN IV Hypoglycemia 08/03/19 18:15 09/02/19 18:14 Dextrose/Sodium Chloride 1,000 ml @ 45 mls/hr [id number] IV 08/03/19 19:00 09/02/19 18:59 08/03/19 19:38 Insulin Aspart (NovoLOG) BEFORE MEALS AND HS SUBQ 08/03/19 21:00 09/02/19 20:59 Pantoprazole (Protonix) 40 mg EVERY 12 HOURS IVP 08/03/19 21:00 09/02/19 20:59 08/04/19 09:26 Piperacillin Sod/ Tazobactam Sod 3.375 gm/Sodium Chloride 110 ml @ 27.5 mls/hr Q8H IVPB 08/04/19 00:00 08/11/19 00:00 08/04/19 09:26 Assessment/Plan Problem List: (1) Upper GI bleed Assessment & Plan: This is a 64-year-old male with multiple medical comorbidities and history of prior stroke who is on Coumadin with INR identified to be 1.8 on admission who had upper GI bleeding with dark bloody emesis. Anemia, abnormal labs, elevated troponins. Patient awake alert and otherwise comfortable. Denies any abdominal pain. Hemoglobin noted and pending potential transfusion. INR trending down today at 1.4 No acute surgical intervention necessary at this time If continues to bleed will recommend beginning with endoscopy and if etiology found in successful we will monitor otherwise may need surgical intervention Trend labs Will discuss with GI prior to initiation of diet. Okay for diet from surgical standpoint otherwise. Cardiology input appreciated Thank you will follow with recommendations ICD Codes: K92.2 - Gastrointestinal hemorrhage, unspecified SNOMED: [id number] Wenceslao Verdugo Aug 04, 2019 10:07
--- NOTE | 2019-08-04 10:27 | Diagnostic Imaging Report ---
Indication: Hematemesis, abnormal liver function tests, abnormal renal function tests Technique: Ro-scale and duplex images of the upper abdomen were obtained Comparison: Renal ultrasound dated 02/19/2019 Findings: Gallbladder has been removed Common bile duct measures 9 mm in diameter. No intrahepatic biliary ductal dilatation. Liver demonstrates normal echogenicity, no focal abnormality. Portal vein and hepatic veins are patent. Pancreas is obscured by bowel gas. The spleen is mildly enlarged, measures 13.6 cm long axis dimension Left kidney measures 13.2 cm in length. Right kidney measures 12.4 cm length. Both kidneys demonstrate normal echogenicity. There is no hydronephrosis. Both kidneys demonstrate cysts . Non-aneurysmal abdominal aorta . Impression: Evidence of prior cholecystectomy Mother dilated common bile duct. Most likely related to age and postcholecystectomy state, downstream obstruction is not excluded. Correlate with liver function tests, consider MRCP if clinically indicated Borderline splenomegaly Incidental finding bilateral renal cysts, also previously noted
--- NOTE | 2019-08-04 10:40 | Consultation ---
History of Present Illness General Chief Complaint: Gastrointestinal Bleed Present Illness Allergies: Coded Allergies: No Known Allergies (Unverified , 10/07/17) Medication History Scheduled Amlodipine Besylate* (Amlodipine Besylate*), 5 MG ORAL DAILY, (Reported) Ascorbic Acid* (Vitamin C*), 500 MG ORAL DAILY, (Reported) Aspirin* (Aspir 81*), 81 MG ORAL DAILY, (Reported) Atorvastatin Calcium* (Atorvastatin Calcium*), 80 MG ORAL BEDTIME, (Reported) Clonidine Hcl* (Catapres*), 0.1 MG ORAL EVERY 6 HOURS, (Reported) Clopidogrel Bisulfate* (Plavix*), 75 MG ORAL DAILY, (Reported) Cranberry (Cranberry), 400 MG PO DAILY, (Reported) Docusate Sodium* (Docusate Sodium*), 100 MG ORAL TWICE A DAY, (Reported) Ergocalciferol (Vitamin D2)* (Vitamin D*), 50,000 UNIT ORAL ONCE A WEEK, ( Reported) Finasteride* (Proscar*), 5 MG ORAL DAILY, (Reported) Folic Acid* (Folic Acid*), 1 MG ORAL DAILY, (Reported) Glimepiride (Amaryl), 2 MG ORAL BEFORE BREAKFAST, (Reported) Insulin Detemir (Levemir), 0 SUBQ BEDTIME, (Reported) Levothyroxine Sodium* (Levothyroxine Sodium*), 200 MCG ORAL DAILY, (Reported) Losartan Potassium* (Losartan Potassium*), 50 MG ORAL DAILY, (Reported) Multivitamins* (Multivitamins*), 1 TAB ORAL DAILY, (Reported) Tamsulosin Hcl (Tamsulosin Hcl*), 0.4 MG ORAL BEDTIME, (Reported) Vit B Cmplx 3/Fa/Vit C/Biotin (Nephro-Kym Rx Tablet), 1 EACH PO DAILY, ( Reported) Warfarin Sod* (Coumadin*), 10 MG ORAL DAILY, (Reported) Scheduled PRN Acetaminophen* (Acetaminophen 325MG Tablet*), 650 MG ORAL Q6H PRN for Pain Scale (3-5), (Reported) Ondansetron* (Zofran*), 4 MG ORAL Q6H PRN for Nausea & Vomiting, (Reported) Polyethylene Glycol 3350* (Miralax*), 17 GM ORAL DAILY PRN for Constipation, ( Reported) Miscellaneous Medications Diclofenac Sodium (Solaraze), 100 GM TP, (Reported) Glucagon,Human Recombinant (Glucagon Emergency Kit), 1 MG IJ, (Reported) Discontinued Medications Amlodipine Besylate* (Amlodipine Besylate*), 2.5 MG ORAL DAILY, (Reported) Discontinued Reason: Medication dose changed Amoxicillin/Potassium Clav 875-125* (Augmentin 875-125 Tablet*), 1 TAB ORAL TWICE A DAY, (Reported) Discontinued Reason: Pt had allergic rxn Amoxicillin/Potassium Clav 875-125* (Augmentin 875-125 Tablet*), 1 TAB ORAL TWICE A DAY, (Reported) Discontinued Reason: Medication dose changed Apixaban (Eliquis), 2.5 MG PO BID, (Reported) Discontinued Reason: MD discontinued med Arginine (Arginine), 50 GM PO DAILY, (Reported) Discontinued Reason: Pt stopped taking med Ascorbic Acid* (Vitamin C*), 500 MG ORAL DAILY, (Reported) Discontinued Reason: MD discontinued med Erythromycin Base (Erythromycin*), 1 APPLIC LEFT EYE QID Discontinued Reason: MD discontinued med Gabapentin* (Gabapentin*), 300 MG ORAL BEDTIME, (Reported) Discontinued Reason: MD discontinued med Insulin Glargine (Lantus), 0 SUBQ BEDTIME, (Reported) Discontinued Reason: MD discontinued med Insulin Lispro (Humalog), 0 SUBQ, (Reported) Discontinued Reason: MD discontinued med Melatonin (Melatonin), 6 MG ORAL BEDTIME PRN for Insomnia, (Reported) Discontinued Reason: MD discontinued med Ofloxacin (Ofloxacin), 5 ML OT, (Reported) Discontinued Reason: MD discontinued med Ondansetron* (Zofran*), 4 MG ORAL Q6H PRN for Nausea & Vomiting, (Reported) Discontinued Reason: MD discontinued med Polyethylene Glycol 3350* (Miralax*), 17 GM ORAL DAILY, (Reported) Discontinued Reason: MD discontinued med Sitagliptin (Januvia), 50 MG ORAL DAILY, (Reported) Discontinued Reason: MD discontinued med Sitagliptin (Januvia), 50 MG ORAL DAILY, (Reported) Discontinued Reason: MD discontinued med Temazepam* (Restoril*), 15 MG ORAL BEDTIME PRN for Insomnia, (Reported) Discontinued Reason: MD discontinued med Tramadol Hcl* (Ultram*), 50 MG ORAL Q6H PRN for For Pain, (Reported) Discontinued Reason: MD discontinued med Patient History Healthcare decision maker Resuscitation status Full Code Advanced Directive on File No Physical Exam Last 24 Hour Vital Signs Date Time Temp Pulse Resp B/P (MAP) Pulse Ox O2 Delivery O2 Flow Rate FiO2 08/04/19 08:00 Nasal Cannula 2.0 08/04/19 08:00 63 08/04/19 07:58 97.7 70 143/70 (94) 19 08/04/19 04:08 98.8 71 153/75 (101) 16 08/04/19 04:00 71 08/04/19 04:00 Nasal Cannula 2.0 08/04/19 00:00 72 08/04/19 00:00 98.2 69 145/65 (91) 18 08/04/19 00:00 Nasal Cannula 2.0 08/03/19 20:00 65 08/03/19 20:00 Nasal Cannula 2.0 08/03/19 20:00 98.1 65 146/72 (96) 18 08/03/19 18:51 Room Air 08/03/19 17:38 97.9 70 153/80 (104) 18 08/03/19 17:03 98.2 62 18 136/66 98 Room Air 08/03/19 16:35 98.1 68 16 08/03/19 16:20 98.2 66 14 08/03/19 16:05 98.1 71 18 08/03/19 15:45 98.2 68 16 08/03/19 15:20 98.5 60 14 08/03/19 15:05 98.5 56 16 08/03/19 14:29 166/76 08/03/19 14:10 98.2 64 18 166/76 98 Room Air 08/03/19 14:10 98.2 57 18 08/03/19 13:55 98.3 59 15 08/03/19 13:40 98.2 64 19 08/03/19 13:30 98.2 66 18 08/03/19 13:30 98.2 64 18 158/82 98 Room Air 08/03/19 13:15 98.2 58 16 08/03/19 13:00 98.7 67 16 08/03/19 13:00 98.7 64 16 166/70 98 Room Air 08/03/19 12:04 64 16 Room Air 08/03/19 12:04 98.4 64 16 152/65 98 Room Air 08/03/19 11:23 98.4 64 16 154/74 (100) 97 Room Air Intake and Output 08/03/19 08/04/19 19:00 07:00 Intake Total 2000 ml 492.5 ml Output Total 900 ml Balance 2000 ml -407.5 ml Intake IV Total 1000 ml 492.5 ml Blood Product 1000 ml Output Urine Total 900 ml # Voids 1 # Bowel Movements 1 Laboratory Tests Test 08/03/19 11:25 08/03/19 14:20 08/04/19 03:50 08/04/19 09:30 White Blood Count 8.1 K/UL (4.8-10.8) 8.9 K/UL (4.8-10.8) Red Blood Count 3.75 M/UL (4.70-6.10) L 2.85 M/UL (4.70-6.10) L Hemoglobin 11.5 G/DL (14.2-18.0) L 8.8 G/DL (14.2-18.0) L Hematocrit 33.4 % (42.0-52.0) L 25.4 % (42.0-52.0) L Mean Corpuscular Volume 89 FL (80-99) 89 FL (80-99) Mean Corpuscular Hemoglobin 30.7 PG (27.0-31.0) 30.9 PG (27.0-31.0) Mean Corpuscular Hemoglobin Concent 34.4 G/DL (32.0-36.0) 34.8 G/DL (32.0-36.0) Red Cell Distribution Width 11.1 % (11.6-14.8) L 10.9 % (11.6-14.8) L Platelet Count 220 K/UL (150-450) 189 K/UL (150-450) Mean Platelet Volume 6.2 FL (6.5-10.1) L 6.8 FL (6.5-10.1) Neutrophils (%) (Auto) 64.4 % (45.0-75.0) 68.8 % (45.0-75.0) Lymphocytes (%) (Auto) 22.1 % (20.0-45.0) 19.1 % (20.0-45.0) L Monocytes (%) (Auto) 7.9 % (1.0-10.0) 7.9 % (1.0-10.0) Eosinophils (%) (Auto) 4.8 % (0.0-3.0) H 3.6 % (0.0-3.0) H Basophils (%) (Auto) 0.9 % (0.0-2.0) 0.6 % (0.0-2.0) Prothrombin Time 18.1 SEC (9.30-11.50) H 15.0 SEC (9.30-11.50) H Prothromb Time International Ratio 1.8 (0.9-1.1) H 1.4 (0.9-1.1) H Activated Partial Thromboplast Time 36 SEC (23-33) H 33 SEC (23-33) Sodium Level 142 MMOL/L (136-145) 147 MMOL/L (136-145) H Potassium Level 5.3 MMOL/L (3.5-5.1) H 4.1 MMOL/L (3.5-5.1) Chloride Level 108 MMOL/L (98-107) H 112 MMOL/L (98-107) H Carbon Dioxide Level 25 MMOL/L (21-32) 25 MMOL/L (21-32) Anion Gap 9 mmol/L (5-15) 10 mmol/L (5-15) Blood Urea Nitrogen 59 mg/dL (7-18) H 54 mg/dL (7-18) H Creatinine 2.3 MG/DL (0.55-1.30) H 2.2 MG/DL (0.55-1.30) H Estimat Glomerular Filtration Rate 28.8 mL/min (>60) 30.3 mL/min (>60) Glucose Level 203 MG/DL (74-106) H 137 MG/DL (74-106) H Calcium Level 8.1 MG/DL (8.5-10.1) L 8.3 MG/DL (8.5-10.1) L Total Bilirubin 0.3 MG/DL (0.2-1.0) 0.5 MG/DL (0.2-1.0) Aspartate Amino Transf (AST/SGOT) 34 U/L (15-37) 48 U/L (15-37) H Alanine Aminotransferase (ALT/SGPT) 46 U/L (12-78) 40 U/L (12-78) Alkaline Phosphatase 124 U/L (46-116) H 112 U/L (46-116) Total Creatine Kinase 110 U/L (26-308) Troponin I 2.059 ng/mL (0.000-0.056) 8.301 ng/mL (0.000-0.056) 24.745 ng/mL (0.000-0.056) Total Protein 7.1 G/DL (6.4-8.2) 6.5 G/DL (6.4-8.2) Albumin 3.1 G/DL (3.4-5.0) L 3.1 G/DL (3.4-5.0) L Globulin 4.0 g/dL 3.4 g/dL Albumin/Globulin Ratio 0.8 (1.0-2.7) L 0.9 (1.0-2.7) L Lipase 508 U/L (73-393) H 316 U/L (73-393) Urine Color Pale yellow Urine Appearance Cloudy Urine pH 5 (4.5-8.0) Urine Specific [place] 1.015 (1.005-1.035) Urine Protein 4+ (NEGATIVE) H Urine Glucose (UA) 1+ (NEGATIVE) H Urine Ketones Negative (NEGATIVE) Urine Blood 2+ (NEGATIVE) H Urine Nitrite Negative (NEGATIVE) Urine Bilirubin Negative (NEGATIVE) Urine Urobilinogen Normal MG/DL (0.0-1.0) Urine Leukocyte Esterase 3+ (NEGATIVE) H Urine RBC 5-10 /HPF (0 - 0) H Urine WBC Tntc /HPF (0 - 0) H Urine Squamous Epithelial Cells Occasional /LPF Urine Bacteria Many /HPF (NONE) H Erythrocyte Sedimentation Rate 66 MM/HR (0-20) H Lactic Acid Level 0.50 mmol/L (0.4-2.0) C-Reactive Protein, Quantitative 0.8 mg/dL (0.00-0.90) Amylase Level 53 U/L (25-115) Microbiology Date/Time Source Procedure Growth Status 08/03/19 14:20 Urine,Clean Catch Urine Culture - Preliminary Gram Negative Bacillus 1 Resulted 08/03/19 11:50 Rectum Received Height (Feet): 5 Height (Inches): 9.00 Weight (Pounds): 200 Medications Current Medications Medications (Trade) Dose Ordered Sig/Leon Route PRN Reason Start Time Stop Time Status Last Admin Dose Admin Dextrose (Dextrose 50%) 25 ml Q30M PRN IV Hypoglycemia 08/03/19 18:15 09/02/19 18:14 Dextrose (Dextrose 50%) 50 ml Q30M PRN IV Hypoglycemia 08/03/19 18:15 09/02/19 18:14 Dextrose/Sodium Chloride 1,000 ml @ 45 mls/hr [id number] IV 08/03/19 19:00 09/02/19 18:59 08/03/19 19:38 Insulin Aspart (NovoLOG) BEFORE MEALS AND HS SUBQ 08/03/19 21:00 09/02/19 20:59 Pantoprazole (Protonix) 40 mg EVERY 12 HOURS IVP 08/03/19 21:00 09/02/19 20:59 08/04/19 09:26 Piperacillin Sod/ Tazobactam Sod 3.375 gm/Sodium Chloride 110 ml @ 27.5 mls/hr Q8H IVPB 08/04/19 00:00 08/11/19 00:00 08/04/19 09:26 Assessment/Plan Assessment/Plan: Hematology Consultation REQ MD: Oni Liu DOS:08/04/19 RFC: anemia, coagulopathy, on coumadin HPI 64y old male, with hx as noted below, spitting out blood for 2 days. The patient is on Coumadin after suffering a stroke. The patient denies any nausea or melena. He says he has been swallowing some of the blood. He denies any abdominal pain. The longterm facility assumed that he was vomiting this up. He denies this. Patient wears plates/dentures. He states he has not taken them out for a long time. He denies any pain. Labs have been reviewed, cbc is noted/ He denies any chest pain, shortness of breath, orthopnea or hemoptysis. He denies fevers or chills. Patient status post stroke with left-sided weakness. Patient is anticoagulated on Coumadin. History of diabetes. 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 Reviewed Nursing Documentation: PMH: Agreed; PSxH: Agreed Past Medical History: No History, Except For Hx Hypertension: Yes Hx Diabetes: Yes Hx Cancer: No Hx Gastrointestinal Problems: No Hx Neurological Problems: Yes Hx Cerebrovascular Accident: Yes - Hemiplegia, Hemiparesis, affects L side Review of Systems All Other Systems: negative except mentioned in HPI PE Vitals: reviewed General Appearance: NAD + chronically ill HEENT: normocephalic, atraumatic ++ biconjunctival hemorrhage Neck: non-tender, normal alignment Respiratory/Chest: nromal breath sounds bilaterally Cardiovascular/Chest: normal peripheral pulses, normal rate Abdomen: normal bowel sounds, soft, nontender Extremities: normal range of motion, Right arm skin tear, left sided weaknness NEURO: ++ left sided weakness Labs: noted Imaging: reviewed Assessment and Recs: # Anemia due to underlying GI bleed -- patient presents with hematemesis due to being on coumadin --> as per GI eval, may need endoscopy --> has been started on ppi --> cea has been ordered --> Hgb goal >7. Transfuse prn. --> Will sign consent if necessary --> Epogen or iron at this time is not particularly indicated --> Consider octreotide gtt as per gi eval --> Medications have been reviewed # Coagulation defect/Bleeding, multifactorial usually related to poor PO intake versus medications, in this case related to coumadin --> administer Vitamin K if patient is bleeding or FFP if the INR is >10 --> hold off on ffp unless active procedure/bleeding, first begin with vit K 10 --> mixing study as needed --> HAVE STOPPED COUMADIN --> 06/03: FFP 4 units and VITK 10mg were GIVEN # Anemia due to folic acid deficiency --> prior folic acid<5 --> recheck levels # Elevated troponin, rising, ?nstemi --> Dr. Prado aware --> anticoag as per his recs # Renal failure (ARF), acute on chronic --> per renal # UTI --> abx as needed # Dvt ppx on scds now The timing of this note does not necessarily reflect the time of the patient was seen. Greatly appreciate consultation. Nate Whyte MD Aug 04, 2019 10:40
--- NOTE | 2019-08-04 10:45 | Consultation ---
Consult Note Consult Note asked to eval at the request of dr mantilla for Renal failure Chief Complaint: Gastrointestinal Bleed Source: Patient Patient has been spitting out blood for 2 days. The patient is on Coumadin after suffering a stroke. The patient denies any nausea or melena. He says he has been swallowing some of the blood. He denies any abdominal pain. The longterm facility assumed that he was vomiting this up. He denies this. Patient wears plates/dentures. He states he has not taken them out for a long time. He denies any pain. He denies any chest pain, shortness of breath, orthopnea or hemoptysis. He denies fevers or chills. Patient status post stroke with left-sided weakness. Patient is anticoagulated on Coumadin. History of diabetes. No Known Allergies (Unverified , 10/07/17) Past Surgical History: other - Toe amputations Past Medical History: No History, Except For Hx Hypertension: Yes Hx Diabetes: Yes Hx Neurological Problems: Yes Hx Cerebrovascular Accident: Yes - Hemiplegia, Hemiparesis, affects L side examined data reviewed Assessment/Plan Renal failure (ARF), acute on chronic Anemia: Presents with GI Bleed on anticoagulation Hypertension Elevated troponin h/o Hypothyroid DM UTI BP management betra toby, BP meds Slow Hydrate 2D Echo Avoid nephrotoxics antibiotics Anemia pan Per orders / per consultants Rafa Farr MD Aug 04, 2019 10:44
--- NOTE | 2019-08-04 10:59 | General Progress Note ---
Assessment/Plan Assessment/Plan: GI CONSULT Patient seen. D/w cardiology. Full note to follow Naheed Welch MD Subjective Allergies: Coded Allergies: No Known Allergies (Unverified , 10/07/17) Objective Last 24 Hour Vital Signs Date Time Temp Pulse Resp B/P (MAP) Pulse Ox O2 Delivery O2 Flow Rate FiO2 08/04/19 08:00 Nasal Cannula 2.0 08/04/19 08:00 63 08/04/19 07:58 97.7 70 143/70 (94) 19 08/04/19 04:08 98.8 71 153/75 (101) 16 08/04/19 04:00 71 08/04/19 04:00 Nasal Cannula 2.0 08/04/19 00:00 72 08/04/19 00:00 98.2 69 145/65 (91) 18 08/04/19 00:00 Nasal Cannula 2.0 08/03/19 20:00 65 08/03/19 20:00 Nasal Cannula 2.0 08/03/19 20:00 98.1 65 146/72 (96) 18 08/03/19 18:51 Room Air 08/03/19 17:38 97.9 70 153/80 (104) 18 08/03/19 17:03 98.2 62 18 136/66 98 Room Air 08/03/19 16:35 98.1 68 16 08/03/19 16:20 98.2 66 14 08/03/19 16:05 98.1 71 18 08/03/19 15:45 98.2 68 16 08/03/19 15:20 98.5 60 14 08/03/19 15:05 98.5 56 16 08/03/19 14:29 166/76 08/03/19 14:10 98.2 64 18 166/76 98 Room Air 08/03/19 14:10 98.2 57 18 08/03/19 13:55 98.3 59 15 08/03/19 13:40 98.2 64 19 08/03/19 13:30 98.2 66 18 08/03/19 13:30 98.2 64 18 158/82 98 Room Air 08/03/19 13:15 98.2 58 16 08/03/19 13:00 98.7 67 16 08/03/19 13:00 98.7 64 16 166/70 98 Room Air 08/03/19 12:04 64 16 Room Air 08/03/19 12:04 98.4 64 16 152/65 98 Room Air 08/03/19 11:23 98.4 64 16 154/74 (100) 97 Room Air Intake and Output 08/03/19 08/04/19 19:00 07:00 Intake Total 2000 ml 492.5 ml Output Total 900 ml Balance 2000 ml -407.5 ml Intake IV Total 1000 ml 492.5 ml Blood Product 1000 ml Output Urine Total 900 ml # Voids 1 # Bowel Movements 1 Laboratory Tests 08/03/19 11:25: White Blood Count 8.1, Red Blood Count 3.75L, Hemoglobin 11.5L, Hematocrit 33.4L , Mean Corpuscular Volume 89, Mean Corpuscular Hemoglobin 30.7, Mean Corpuscular Hemoglobin Concent 34.4, Red Cell Distribution Width 11.1L, Platelet Count 220, Mean Platelet Volume 6.2L, Neutrophils (%) (Auto) 64.4, Lymphocytes (%) (Auto) 22.1, Monocytes (%) (Auto) 7.9, Eosinophils (%) (Auto) 4.8H, Basophils (%) (Auto) 0.9, Prothrombin Time 18.1H, Prothromb Time International Ratio 1.8H, Activated Partial Thromboplast Time 36H, Sodium Level 142, Potassium Level 5.3H, Chloride Level 108H, Carbon Dioxide Level 25, Anion Gap 9, Blood Urea Nitrogen 59H, Creatinine 2.3H, Estimat Glomerular Filtration Rate 28.8, Glucose Level 203H, Calcium Level 8.1L, Total Bilirubin 0.3, Aspartate Amino Transf (AST/SGOT) 34, Alanine Aminotransferase (ALT/SGPT) 46, Alkaline Phosphatase 124H, Total Creatine Kinase 110, Troponin I 2.059H, Total Protein 7.1, Albumin 3.1L, Globulin 4.0, Albumin/Globulin Ratio 0.8L, Lipase 508H 08/03/19 14:20: Urine Color Pale yellow, Urine Appearance Cloudy, Urine pH 5, Urine Specific [place] 1.015, Urine Protein 4+H, Urine Glucose (UA) 1+H, Urine Ketones Negative , Urine Blood 2+H, Urine Nitrite Negative, Urine Bilirubin Negative, Urine Urobilinogen Normal, Urine Leukocyte Esterase 3+H, Urine RBC 5-10H, Urine WBC TntcH, Urine Squamous Epithelial Cells Occasional, Urine Bacteria ManyH 08/04/19 03:50: White Blood Count 8.9, Red Blood Count 2.85L, Hemoglobin 8.8L, Hematocrit 25.4L , Mean Corpuscular Volume 89, Mean Corpuscular Hemoglobin 30.9, Mean Corpuscular Hemoglobin Concent 34.8, Red Cell Distribution Width 10.9L, Platelet Count 189, Mean Platelet Volume 6.8, Neutrophils (%) (Auto) 68.8, Lymphocytes (%) (Auto) 19.1L, Monocytes (%) (Auto) 7.9, Eosinophils (%) (Auto) 3.6H, Basophils (%) (Auto) 0.6, Prothrombin Time 15.0H, Prothromb Time International Ratio 1.4H, Activated Partial Thromboplast Time 33, Sodium Level 147H, Potassium Level 4.1, Chloride Level 112H, Carbon Dioxide Level 25, Anion Gap 10, Blood Urea Nitrogen 54H, Creatinine 2.2H, Estimat Glomerular Filtration Rate 30.3, Glucose Level 137H, Calcium Level 8.3L, Total Bilirubin 0.5, Aspartate Amino Transf (AST/SGOT) 48H, Alanine Aminotransferase (ALT/SGPT) 40, Alkaline Phosphatase 112, Troponin I 8.301H, Total Protein 6.5, Albumin 3.1L, Globulin 3.4, Albumin/Globulin Ratio 0.9L, Lipase 316, Erythrocyte Sedimentation Rate 66H, Lactic Acid Level 0.50, Magnesium Level [Pending], Ferritin [Pending], C-Reactive Protein, Quantitative 0.8, Amylase Level 53, Folate [Pending] 08/04/19 09:30: Troponin I 24.745H, Iron Level [Pending], Unsaturated Iron Binding [Pending] Height (Feet): 5 Height (Inches): 9.00 Weight (Pounds): 200 Naheed Welch MD Aug 04, 2019 10:59
[2019-08-04] MEDS ORDERED: Metoprolol Tartrate 12.5mg TAB ORAL SCH ×3 (11:00→21:00)
[2019-08-04] MEDS ORDERED: Heparin 5000 units/ml inj IV ONE (11:00)
[2019-08-04] MEDS ORDERED: D5 1/2NS 1,000 ML IV SCH ×3 (11:00→19:00)
[2019-08-04] MEDS ORDERED: Heparin 25,000u/D5W 500ml 500 ML IV SCH ×3 (11:00→11:52)
[2019-08-04] MEDS ORDERED: Metoprolol Tartrate 12.5mg TAB ORAL ONE (11:00)
[2019-08-04 11:01] LABS: % IRON SATURATION 12 % (15-50); IRON 30 ug/dL (50-175); TOTAL IRON BINDING CAPACITY 257 ug/dL (250-450)
[2019-08-04] MEDS ORDERED: Heparin 5000 units/ml inj IV SCH (11:15)
[2019-08-04] MEDS ORDERED: HydrALAZINE 10mg Tab ORAL SCH (12:00)
--- NOTE | 2019-08-04 12:16 | Cardiology Progress Note ---
Assessment/Plan Assessment/Plan The patient is seen and examined, full consult note is dictated. Objective Last 24 Hour Vital Signs Date Time Temp Pulse Resp B/P (MAP) Pulse Ox O2 Delivery O2 Flow Rate FiO2 08/04/19 08:00 Nasal Cannula 2.0 08/04/19 08:00 63 08/04/19 07:58 97.7 70 143/70 (94) 19 08/04/19 04:08 98.8 71 153/75 (101) 16 08/04/19 04:00 71 08/04/19 04:00 Nasal Cannula 2.0 08/04/19 00:00 72 08/04/19 00:00 98.2 69 145/65 (91) 18 08/04/19 00:00 Nasal Cannula 2.0 08/03/19 20:00 65 08/03/19 20:00 Nasal Cannula 2.0 08/03/19 20:00 98.1 65 146/72 (96) 18 08/03/19 18:51 Room Air 08/03/19 17:38 97.9 70 153/80 (104) 18 08/03/19 17:03 98.2 62 18 136/66 98 Room Air 08/03/19 16:35 98.1 68 16 08/03/19 16:20 98.2 66 14 08/03/19 16:05 98.1 71 18 08/03/19 15:45 98.2 68 16 08/03/19 15:20 98.5 60 14 08/03/19 15:05 98.5 56 16 08/03/19 14:29 166/76 08/03/19 14:10 98.2 64 18 166/76 98 Room Air 08/03/19 14:10 98.2 57 18 08/03/19 13:55 98.3 59 15 08/03/19 13:40 98.2 64 19 08/03/19 13:30 98.2 66 18 08/03/19 13:30 98.2 64 18 158/82 98 Room Air 08/03/19 13:15 98.2 58 16 08/03/19 13:00 98.7 67 16 08/03/19 13:00 98.7 64 16 166/70 98 Room Air Intake and Output 08/03/19 08/04/19 19:00 07:00 Intake Total 2000 ml 492.5 ml Output Total 900 ml Balance 2000 ml -407.5 ml Intake IV Total 1000 ml 492.5 ml Blood Product 1000 ml Output Urine Total 900 ml # Voids 1 # Bowel Movements 1 Laboratory Tests Test 08/03/19 14:20 08/04/19 03:50 08/04/19 09:30 08/04/19 11:15 Urine Color Pale yellow Urine Appearance Cloudy Urine pH 5 (4.5-8.0) Urine Specific [place] 1.015 (1.005-1.035) Urine Protein 4+ (NEGATIVE) H Urine Glucose (UA) 1+ (NEGATIVE) H Urine Ketones Negative (NEGATIVE) Urine Blood 2+ (NEGATIVE) H Urine Nitrite Negative (NEGATIVE) Urine Bilirubin Negative (NEGATIVE) Urine Urobilinogen Normal MG/DL (0.0-1.0) Urine Leukocyte Esterase 3+ (NEGATIVE) H Urine RBC 5-10 /HPF (0 - 0) H Urine WBC Tntc /HPF (0 - 0) H Urine Squamous Epithelial Cells Occasional /LPF Urine Bacteria Many /HPF (NONE) H White Blood Count 8.9 K/UL (4.8-10.8) Pending Red Blood Count 2.85 M/UL (4.70-6.10) L Pending Hemoglobin 8.8 G/DL (14.2-18.0) L Pending Hematocrit 25.4 % (42.0-52.0) L Pending Mean Corpuscular Volume 89 FL (80-99) Pending Mean Corpuscular Hemoglobin 30.9 PG (27.0-31.0) Pending Mean Corpuscular Hemoglobin Concent 34.8 G/DL (32.0-36.0) Pending Red Cell Distribution Width 10.9 % (11.6-14.8) L Pending Platelet Count 189 K/UL (150-450) Pending Mean Platelet Volume 6.8 FL (6.5-10.1) Pending Neutrophils (%) (Auto) 68.8 % (45.0-75.0) Pending Lymphocytes (%) (Auto) 19.1 % (20.0-45.0) L Pending Monocytes (%) (Auto) 7.9 % (1.0-10.0) Pending Eosinophils (%) (Auto) 3.6 % (0.0-3.0) H Pending Basophils (%) (Auto) 0.6 % (0.0-2.0) Pending Erythrocyte Sedimentation Rate 66 MM/HR (0-20) H Prothrombin Time 15.0 SEC (9.30-11.50) H Pending Prothromb Time International Ratio 1.4 (0.9-1.1) H Pending Activated Partial Thromboplast Time 33 SEC (23-33) Pending Sodium Level 147 MMOL/L (136-145) H Pending Potassium Level 4.1 MMOL/L (3.5-5.1) Pending Chloride Level 112 MMOL/L (98-107) H Pending Carbon Dioxide Level 25 MMOL/L (21-32) Pending Anion Gap 10 mmol/L (5-15) Blood Urea Nitrogen 54 mg/dL (7-18) H Pending Creatinine 2.2 MG/DL (0.55-1.30) H Pending Estimat Glomerular Filtration Rate 30.3 mL/min (>60) Pending Glucose Level 137 MG/DL (74-106) H Pending Lactic Acid Level 0.50 mmol/L (0.4-2.0) Calcium Level 8.3 MG/DL (8.5-10.1) L Pending Magnesium Level 1.5 MG/DL (1.8-2.4) L Pending Ferritin 38 NG/ML (8-388) Total Bilirubin 0.5 MG/DL (0.2-1.0) Pending Aspartate Amino Transf (AST/SGOT) 48 U/L (15-37) H Pending Alanine Aminotransferase (ALT/SGPT) 40 U/L (12-78) Pending Alkaline Phosphatase 112 U/L (46-116) Pending Troponin I 8.301 ng/mL (0.000-0.056) 24.745 ng/mL (0.000-0.056) C-Reactive Protein, Quantitative 0.8 mg/dL (0.00-0.90) Pending Total Protein 6.5 G/DL (6.4-8.2) Pending Albumin 3.1 G/DL (3.4-5.0) L Pending Globulin 3.4 g/dL Pending Albumin/Globulin Ratio 0.9 (1.0-2.7) L Amylase Level 53 U/L (25-115) Lipase 316 U/L (73-393) Folate 16.3 NG/ML (8.6-58.9) Iron Level 30 ug/dL (50-175) L Total Iron Binding Capacity 257 ug/dL (250-450) Percent Iron Saturation 12 % (15-50) L Unsaturated Iron Binding 227 ug/dL (112-346) Hemoglobin A1c Pending Uric Acid Pending Phosphorus Level Pending Gamma Glutamyl Transpeptidase Pending Total Creatine Kinase Pending Pro-B-Type Natriuretic Peptide Pending Triglycerides Level Pending Cholesterol Level Pending LDL Cholesterol Pending HDL Cholesterol Pending Cholesterol/HDL Ratio Pending Vitamin B12 Level Pending Thyroid Stimulating Hormone (TSH) Pending Microbiology Date/Time Source Procedure Growth Status 08/03/19 14:20 Urine,Clean Catch Urine Culture - Preliminary Gram Negative Bacillus 1 Resulted 08/03/19 11:50 Rectum Received Castillo Prado MD Aug 04, 2019 12:16
[2019-08-04] MEDS: HydrALAZINE 10mg Tab ORAL SCH ×2 (12:22→16:42)
[2019-08-04 12:23] LABS: BASOPHILS % (AUTO) 0.8 % (0.0-2.0); EOSINOPHILS % (AUTO) 3.9 % (0.0-3.0); HEMATOCRIT 30.9 % (42.0-52.0); HEMOGLOBIN 10.4 G/DL (14.2-18.0); LYMPHOCYTES % (AUTO) 8.5 % (20.0-45.0); MEAN CORPUSCULAR VOLUME 91 FL (80-99); MONOCYTES % (AUTO) 6.8 % (1.0-10.0); PLATELET COUNT 199 K/UL (150-450); RED CELL DISTRIBUTION WIDTH 11.2 % (11.6-14.8); WHITE BLOOD COUNT 10.7 K/UL (4.8-10.8)
[2019-08-04 12:28] LABS: INR 1.6 (0.9-1.1)
[2019-08-04 12:34] LABS: ANION GAP 12 mmol/L (5-15); BLOOD UREA NITROGEN 50 mg/dL (7-18); CALCIUM 8.3 MG/DL (8.5-10.1); CARBON DIOXIDE 23 MMOL/L (21-32); CHLORIDE 112 MMOL/L (98-107); CREATININE 2.1 MG/DL (0.55-1.30); POTASSIUM 4.2 MMOL/L (3.5-5.1); SODIUM 147 MMOL/L (136-145)
[2019-08-04 12:46] LABS: ALANINE AMINOTRANSFERASE 40 U/L (12-78); ALBUMIN 3.1 G/DL (3.4-5.0); ALBUMIN/GLOBULIN RATIO 0.8 (1.0-2.7); ALKALINE PHOSPHATASE 115 U/L (46-116); ASPARTATE AMINO TRANSFERASE 82 U/L (15-37); BILIRUBIN,TOTAL 0.5 MG/DL (0.2-1.0); CHOLESTEROL 113 MG/DL (< 200); CREATINE KINASE 584 U/L (26-308); GAMMA GLUTAMYL TRANSPEPTIDASE 16 U/L (5-85); HDL CHOLESTEROL 40 MG/DL (40-60); TRIGLYCERIDES 70 MG/DL (30-150)
[2019-08-04] MEDS ORDERED: Aspirin Baby 81mg ORAL SCH (16:00)
[2019-08-04] MEDS ORDERED: Piperacillin/Tazobactam 3.375 GM in NS 110 ML IVPB SCH (16:00)
--- NOTE | 2019-08-04 16:15 | Consultation ---
DATE OF CONSULTATION: 08/04/2019 CARDIOLOGY CONSULTATION CONSULTING PHYSICIAN: Castillo Prado M.D. REFERRING PHYSICIAN: Oni Schilling M.D. REASON FOR CONSULTATION: Management of non-ST elevation myocardial infarction. HISTORY OF PRESENT ILLNESS: The patient is a very unfortunate 64-year-old gentleman with prior history of right cerebrovascular accident with left hemiparalysis, history of bradycardia, history of anticoagulation with Coumadin for absolutely no reason not clear whether the patient had history of DVT or paroxysmal atrial fibrillation in the past, history of hypertension who presents to the hospital with gum bleeding due to prosthesis. Apparently, the patient spit blood on a towel in the nursing facility and that made the patient francisco to the hospital for possibility of GI bleed. The patient's Coumadin was reversed at the time of arrival to the hospital with 4 units of fresh frozen plasma due to presumed GI bleed. The confirmation INR after FFP administration is 1.4. The patient denies any nausea, vomiting, melanotic stool, or hematochezia. Cardiology consultation was made as the first troponin I level was elevated at 2.0. The second troponin I level mark to 8.3, and the third one mark to 24.7. A 12-lead electrocardiogram did not show any evidence of ST-elevation myocardial infarction. EF was sinus rhythm with asymmetrical T-wave inversions suggestive of LVH repolarization abnormalities. Cardiology consultation was made at request of Dr. Schilling to evaluate this patient who is now transferred to intensive care unit of [facility]. The patient does not have any chest pain or shortness of breath. PAST MEDICAL HISTORY: 1. History of right CVA with left hemiparalysis. 2. History of hypertension. 3. History of ophthalmic bleed, which was believed to be due to apixaban. 4. History of Coumadin use for unknown reason. Questionable DVT versus paroxysmal atrial fibrillation. 5. History of diabetes mellitus. ALLERGIES: No known drug allergies. PAST SURGICAL HISTORY: None. REVIEW OF SYSTEMS: Twelve system review done essentially negative except what was mentioned in the history of present illness. MEDICATIONS: List of medications in the nursing facility includes acetaminophen 650 q.6 hours p.r.n. pain, amlodipine 5 mg p.o. daily, vitamin C 500 mg p.o. daily, aspirin 81 mg p.o. daily, atorvastatin 80 mg p.o. at bedtime, Catapres 0.1 mg q.6 hours, Plavix 75 mg p.o. daily, cranberry 400 mg p.o. daily, diclofenac 100 mg to be applied twice daily, Colace 100 mg p.o. twice daily, vitamin D 50,000 units weekly, Proscar 5 mg p.o. daily, folic acid 1 mg p.o. daily, Amaryl 2 mg p.o. by mouth before breakfast, glucagon 1 mg as needed for emergency hypoglycemia, Levemir insulin, levothyroxine 200 mcg p.o. daily, losartan 50 mg p.o. daily, multivitamin 1 tablet daily, Zofran 4 mg q.6 hours p.r.n. nausea, vomiting, MiraLAX 17 g p.o. daily p.r.n. constipation, tamsulosin 0.4 mg at bedtime, Nephro-Kym 1 tablet p.o. daily, and Coumadin 10 mg p.o. daily. HABITS: Denies any tobacco, alcohol, illicit drug use. Resident of care home facility under care of Dr. Oni Schilling. PHYSICAL EXAMINATION: VITAL SIGNS: Blood pressure is 154/74, pulse of 64, respirations 16, temperature 98.4 degrees Fahrenheit, O2 saturation 97% on room air. GENERAL: This is a very unfortunate 64-year-old gentleman, in no apparent respiratory distress. Alert, oriented x4. HEENT: Atraumatic, normocephalic. Anicteric. Pupils are equal, round, and reactive to light and accommodation. Poor dentition. NECK: JVP less than 5 cm. No carotid bruit. Carotid upstrokes 2+ bilaterally. CARDIOVASCULAR: Normal S1, S2. Regular rate and rhythm. No murmurs, gallops, or rubs. PMI is at fourth intercostal space at the midclavicular line. LUNGS: Clear to auscultation bilaterally. ABDOMEN: Soft, nontender, nondistended. No hepatosplenomegaly. Positive bowel sounds. EXTREMITIES: There is diminished left arm and lack motor function with flexion contraction of the left hand. LABORATORY FINDINGS: Sodium was 142, potassium is 5.3, chloride 108, bicarbonate 25, BUN 59, creatinine 2.3, GFR is 28.8, glucose is 203, calcium is 8.1. Troponin I was 2.05. INR was 1.8. WBC was 8.1, hemoglobin 11.5, hematocrit 33.4, platelet counts 220. Sinus bradycardia at a rate of [address] and T-wave abnormalities in lead V5 and V6 and inferior leads. Repeat of 12-lead electrocardiogram on 08/04/2019 shows sinus rhythm at a rate of [address] and T-wave abnormalities. No evidence of ST elevation myocardial infarction. ASSESSMENT AND PLAN: The patient is a very unfortunate 64-year-old gentleman, seen in Cardiology consultation. 1. Elevated troponin I level. There might be some contributing issues from chronic kidney disease; however, the troponin I level is beyond explanation by renal failure. The patient requires to have left heart catheterization and coronary angiography, despite the fact that he is chest pain free and does not have malignant ECG findings suggest severe injury or ischemia. We will have field nurse case manager to find a contracted hospital for left heart catheterization coronary angiography. As mentioned above, the patient is completely chest pain free. He was started on heparin drip. Following reversal of Coumadin with fresh frozen plasma. We will like to continue aspirin 81 mg daily. Double-product control with metoprolol and atorvastatin 80 mg once daily. 1.1. A 2D echocardiography is ordered stat. 2. History of right CVA with left hemiparalysis. 3. History of ophthalmic bleed due to apixaban. The patient's apixaban was discontinued and the patient started on Coumadin. 4. Anticoagulation with Coumadin for unknown reason. Questionable DVT versus paroxysmal AFib Coumadin is now reversed after fresh frozen plasma given for presumably GI bleed. The patient was started on heparin drip for non-ST elevation myocardial infarction given the INR dropped to 1.4 following FFP administration. 5. Gum bleed. May have to emphasize that the patient did not have any GI bleed. Currently, there is no active bleeding. We will continue with hemoglobin and hematocrit. Heparin drip was started for non-ST elevation myocardial infarction. We will follow up with the field nurse case manager in regards with transferring this patient to the contracted facility for left heart catheterization and coronary angiography. Castillo Prado M.D. DR: STEF JOB#: [id number] CC:
--- NOTE | 2019-08-04 18:52 | Diagnostic Imaging Report ---
APPROVED REPORT CPT Code: 97834 Present Symptoms Shortness of breath BILATERAL: Imaging reveals a patent deep venous system bilaterally. There is no evidence of thrombus within the femoral, popliteal or tibial segments. The greater saphenous veins are also within normal limits. Doppler indicates normal spontaneous flow within these segments.
--- NOTE | 2019-08-04 20:42 | General Progress Note ---
Assessment/Plan Assessment/Plan: GI CONSULT Dictated Appears to have had oral/dental bleeding not GIB Cardiology evaluation in progress Thank you Naheed Welch MD Subjective Allergies: Coded Allergies: No Known Allergies (Unverified , 10/07/17) Objective Last 24 Hour Vital Signs Date Time Temp Pulse Resp B/P (MAP) Pulse Ox O2 Delivery O2 Flow Rate FiO2 08/04/19 19:04 68 20 96 Facial 40 08/04/19 19:00 63 15 146/69 97 Bi-pap 40 08/04/19 18:00 59 18 134/60 96 Bi-pap 40 08/04/19 17:28 40 08/04/19 17:15 69 24 93 Facial 40 08/04/19 17:15 69 24 93 Bi-Pap 40 08/04/19 17:00 74 29 156/81 87 Venturi Mask 14.0 55 08/04/19 16:42 157/71 08/04/19 16:00 98.6 77 28 157/69 82 Venturi Mask 14.0 55 08/04/19 16:00 97 08/04/19 16:00 Nasal Cannula 2.0 08/04/19 16:00 14.0 55 08/04/19 15:00 69 23 152/71 92 Venturi Mask 8.0 40 08/04/19 14:00 68 21 147/71 85 Venturi Mask 8.0 40 08/04/19 13:00 68 23 149/59 88 Nasal Cannula 2.0 08/04/19 12:22 150/68 08/04/19 12:00 Nasal Cannula 2.0 08/04/19 12:00 68 08/04/19 12:00 72 21 150/68 85 Nasal Cannula 2.0 08/04/19 12:00 8.0 40 08/04/19 11:00 98.7 71 22 144/69 93 Nasal Cannula 2.0 08/04/19 11:00 83 08/04/19 08:00 Nasal Cannula 2.0 08/04/19 08:00 63 08/04/19 07:58 97.7 70 143/70 (94) 19 08/04/19 04:08 98.8 71 153/75 (101) 16 08/04/19 04:00 71 08/04/19 04:00 Nasal Cannula 2.0 08/04/19 00:00 72 08/04/19 00:00 98.2 69 145/65 (91) 18 08/04/19 00:00 Nasal Cannula 2.0 Intake and Output 08/03/19 08/04/19 19:00 07:00 Intake Total 2000 ml 492.5 ml Output Total 900 ml Balance 2000 ml -407.5 ml Intake IV Total 1000 ml 492.5 ml Blood Product 1000 ml Output Urine Total 900 ml # Voids 1 # Bowel Movements 1 Laboratory Tests 08/04/19 03:50: White Blood Count 8.9, Red Blood Count 2.85L, Hemoglobin 8.8L, Hematocrit 25.4L , Mean Corpuscular Volume 89, Mean Corpuscular Hemoglobin 30.9, Mean Corpuscular Hemoglobin Concent 34.8, Red Cell Distribution Width 10.9L, Platelet Count 189, Mean Platelet Volume 6.8, Neutrophils (%) (Auto) 68.8, Lymphocytes (%) (Auto) 19.1L, Monocytes (%) (Auto) 7.9, Eosinophils (%) (Auto) 3.6H, Basophils (%) (Auto) 0.6, Erythrocyte Sedimentation Rate 66H, Prothrombin Time 15.0H, Prothromb Time International Ratio 1.4H, Activated Partial Thromboplast Time 33, Sodium Level 147H, Potassium Level 4.1, Chloride Level 112H, Carbon Dioxide Level 25, Anion Gap 10, Blood Urea Nitrogen 54H, Creatinine 2.2H, Estimat Glomerular Filtration Rate 30.3, Glucose Level 137H, Lactic Acid Level 0.50, Calcium Level 8.3L, Magnesium Level 1.5L, Ferritin 38, Total Bilirubin 0.5, Aspartate Amino Transf (AST/SGOT) 48H, Alanine Aminotransferase (ALT/SGPT) 40, Alkaline Phosphatase 112, Troponin I 8.301H, C- Reactive Protein, Quantitative 0.8, Total Protein 6.5, Albumin 3.1L, Globulin 3.4, Albumin/Globulin Ratio 0.9L, Amylase Level 53, Lipase 316, Folate 16.3 08/04/19 09:30: Troponin I 24.745H, Iron Level 30L, Total Iron Binding Capacity 257, Percent Iron Saturation 12L, Unsaturated Iron Binding 227 08/04/19 11:15: White Blood Count 10.7, Red Blood Count 3.40L, Hemoglobin 10.4L, Hematocrit 30.9L, Mean Corpuscular Volume 91, Mean Corpuscular Hemoglobin 30.5, Mean Corpuscular Hemoglobin Concent 33.6, Red Cell Distribution Width 11.2L, Platelet Count 199, Mean Platelet Volume 6.6, Neutrophils (%) (Auto) 80.0H, Lymphocytes (%) (Auto) 8.5L, Monocytes (%) (Auto) 6.8, Eosinophils (%) (Auto) 3.9H, Basophils (%) (Auto) 0.8, Prothrombin Time 16.4H, Prothromb Time International Ratio 1.6H, Activated Partial Thromboplast Time 36H, Sodium Level 147H, Potassium Level 4.2, Chloride Level 112H, Carbon Dioxide Level 23, Anion Gap 12, Blood Urea Nitrogen 50H, Creatinine 2.1H, Estimat Glomerular Filtration Rate 32.0, Glucose Level 126H, Calcium Level 8.3L, Magnesium Level 1.4L, Total Bilirubin 0.5, Aspartate Amino Transf (AST/SGOT) 82H, Alanine Aminotransferase ( ALT/SGPT) 40, Alkaline Phosphatase 115, C-Reactive Protein, Quantitative 2.9H, Total Protein 7.0, Albumin 3.1L, Globulin 3.9, Albumin/Globulin Ratio 0.8L, Hemoglobin A1c 6.4H, Uric Acid 4.4, Phosphorus Level 3.0, Gamma Glutamyl Transpeptidase 16, Total Creatine Kinase 584H, Pro-B-Type Natriuretic Peptide 5945H, Triglycerides Level 70, Cholesterol Level 113, LDL Cholesterol 58, HDL Cholesterol 40, Cholesterol/HDL Ratio 2.8L, Vitamin B12 Level 599, Thyroid Stimulating Hormone (TSH) 5.172H, Salicylates Level 0.8L 08/04/19 18:15: Activated Partial Thromboplast Time 66H Height (Feet): 5 Height (Inches): 9.00 Weight (Pounds): 200 Naheed Welch MD Aug 04, 2019 20:42
[2019-08-04] MEDS ORDERED: Pantoprazole Inj IVP SCH (21:00)
[2019-08-04] MEDS ORDERED: Atorvastatin 80mg tab ORAL SCH (21:00)
[2019-08-04] MEDS ORDERED: Tamsulosin 0.4mg cap ORAL SCH ×2 (21:00)
--- NOTE | 2019-08-04 21:06 | General Progress Note ---
Assessment/Plan Problem List: (1) Oral hemorrhage ICD Codes: K13.79 - Other lesions of oral mucosa SNOMED: 13655720 (2) Prolonged INR ICD Codes: R79.1 - Abnormal coagulation profile SNOMED: 822177896 (3) Renal failure (ARF), acute on chronic ICD Codes: N17.9 - Acute kidney failure, unspecified; N18.9 - Chronic kidney disease, unspecified SNOMED: 169171674 Qualifiers: Qualified Codes: N17.9 - Acute kidney failure, unspecified; N18.3 - Chronic kidney disease, stage 3 (moderate) (4) HTN (hypertension) ICD Codes: I10 - Essential (primary) hypertension SNOMED: 01120166 (5) Upper GI bleed ICD Codes: K92.2 - Gastrointestinal hemorrhage, unspecified SNOMED: 86122477 (6) NSTEMI (non-ST elevated myocardial infarction) ICD Codes: I21.4 - Non-ST elevation (NSTEMI) myocardial infarction SNOMED: 21168184 Assessment/Plan: trop is increasing so transferred to icu informed dr gil of increase in trop and he ordered transfer to [facility] for cardiac cath Subjective Constitutional: Reports: no symptoms Allergies: Coded Allergies: No Known Allergies (Unverified , 10/07/17) Objective Last 24 Hour Vital Signs Date Time Temp Pulse Resp B/P (MAP) Pulse Ox O2 Delivery O2 Flow Rate FiO2 08/04/19 20:53 66 152/65 08/04/19 19:04 68 20 96 Facial 40 08/04/19 19:00 63 15 146/69 97 Bi-pap 40 08/04/19 18:00 59 18 134/60 96 Bi-pap 40 08/04/19 17:28 40 08/04/19 17:15 69 24 93 Facial 40 08/04/19 17:15 69 24 93 Bi-Pap 40 08/04/19 17:00 74 29 156/81 87 Venturi Mask 14.0 55 08/04/19 16:42 157/71 08/04/19 16:00 98.6 77 28 157/69 82 Venturi Mask 14.0 55 08/04/19 16:00 97 08/04/19 16:00 Nasal Cannula 2.0 08/04/19 16:00 14.0 55 08/04/19 15:00 69 23 152/71 92 Venturi Mask 8.0 40 08/04/19 14:00 68 21 147/71 85 Venturi Mask 8.0 40 08/04/19 13:00 68 23 149/59 88 Nasal Cannula 2.0 08/04/19 12:22 150/68 08/04/19 12:00 Nasal Cannula 2.0 08/04/19 12:00 68 08/04/19 12:00 72 21 150/68 85 Nasal Cannula 2.0 08/04/19 12:00 8.0 40 08/04/19 11:00 98.7 71 22 144/69 93 Nasal Cannula 2.0 08/04/19 11:00 83 08/04/19 08:00 Nasal Cannula 2.0 08/04/19 08:00 63 08/04/19 07:58 97.7 70 143/70 (94) 19 08/04/19 04:08 98.8 71 153/75 (101) 16 08/04/19 04:00 71 08/04/19 04:00 Nasal Cannula 2.0 08/04/19 00:00 72 08/04/19 00:00 98.2 69 145/65 (91) 18 08/04/19 00:00 Nasal Cannula 2.0 Intake and Output 08/03/19 08/04/19 19:00 07:00 Intake Total 2000 ml 492.5 ml Output Total 900 ml Balance 2000 ml -407.5 ml Intake IV Total 1000 ml 492.5 ml Blood Product 1000 ml Output Urine Total 900 ml # Voids 1 # Bowel Movements 1 Laboratory Tests 08/04/19 03:50: White Blood Count 8.9, Red Blood Count 2.85L, Hemoglobin 8.8L, Hematocrit 25.4L , Mean Corpuscular Volume 89, Mean Corpuscular Hemoglobin 30.9, Mean Corpuscular Hemoglobin Concent 34.8, Red Cell Distribution Width 10.9L, Platelet Count 189, Mean Platelet Volume 6.8, Neutrophils (%) (Auto) 68.8, Lymphocytes (%) (Auto) 19.1L, Monocytes (%) (Auto) 7.9, Eosinophils (%) (Auto) 3.6H, Basophils (%) (Auto) 0.6, Erythrocyte Sedimentation Rate 66H, Prothrombin Time 15.0H, Prothromb Time International Ratio 1.4H, Activated Partial Thromboplast Time 33, Sodium Level 147H, Potassium Level 4.1, Chloride Level 112H, Carbon Dioxide Level 25, Anion Gap 10, Blood Urea Nitrogen 54H, Creatinine 2.2H, Estimat Glomerular Filtration Rate 30.3, Glucose Level 137H, Lactic Acid Level 0.50, Calcium Level 8.3L, Magnesium Level 1.5L, Ferritin 38, Total Bilirubin 0.5, Aspartate Amino Transf (AST/SGOT) 48H, Alanine Aminotransferase (ALT/SGPT) 40, Alkaline Phosphatase 112, Troponin I 8.301H, C- Reactive Protein, Quantitative 0.8, Total Protein 6.5, Albumin 3.1L, Globulin 3.4, Albumin/Globulin Ratio 0.9L, Amylase Level 53, Lipase 316, Folate 16.3 08/04/19 09:30: Troponin I 24.745H, Iron Level 30L, Total Iron Binding Capacity 257, Percent Iron Saturation 12L, Unsaturated Iron Binding 227 08/04/19 11:15: White Blood Count 10.7, Red Blood Count 3.40L, Hemoglobin 10.4L, Hematocrit 30.9L, Mean Corpuscular Volume 91, Mean Corpuscular Hemoglobin 30.5, Mean Corpuscular Hemoglobin Concent 33.6, Red Cell Distribution Width 11.2L, Platelet Count 199, Mean Platelet Volume 6.6, Neutrophils (%) (Auto) 80.0H, Lymphocytes (%) (Auto) 8.5L, Monocytes (%) (Auto) 6.8, Eosinophils (%) (Auto) 3.9H, Basophils (%) (Auto) 0.8, Prothrombin Time 16.4H, Prothromb Time International Ratio 1.6H, Activated Partial Thromboplast Time 36H, Sodium Level 147H, Potassium Level 4.2, Chloride Level 112H, Carbon Dioxide Level 23, Anion Gap 12, Blood Urea Nitrogen 50H, Creatinine 2.1H, Estimat Glomerular Filtration Rate 32.0, Glucose Level 126H, Calcium Level 8.3L, Magnesium Level 1.4L, Total Bilirubin 0.5, Aspartate Amino Transf (AST/SGOT) 82H, Alanine Aminotransferase ( ALT/SGPT) 40, Alkaline Phosphatase 115, C-Reactive Protein, Quantitative 2.9H, Total Protein 7.0, Albumin 3.1L, Globulin 3.9, Albumin/Globulin Ratio 0.8L, Hemoglobin A1c 6.4H, Uric Acid 4.4, Phosphorus Level 3.0, Gamma Glutamyl Transpeptidase 16, Total Creatine Kinase 584H, Pro-B-Type Natriuretic Peptide 5945H, Triglycerides Level 70, Cholesterol Level 113, LDL Cholesterol 58, HDL Cholesterol 40, Cholesterol/HDL Ratio 2.8L, Vitamin B12 Level 599, Thyroid Stimulating Hormone (TSH) 5.172H, Salicylates Level 0.8L 08/04/19 18:15: Activated Partial Thromboplast Time 66H Height (Feet): 5 Height (Inches): 9.00 Weight (Pounds): 200 Cardiovascular: normal rate Respiratory/Chest: lungs clear Abdomen: soft Oni Schilling MD Aug 04, 2019 21:06
--- NOTE | 2019-08-04 21:11 | Pulmonology Progress Note ---
Assessment/Plan Assessment/Plan Pulmonary Progress Note HPI Patient is a 64 year old man with previous history of Hypertension, Diabetes, previous Cerebrovascular accident with left sided weakness, he has been vomiting up blood for 2 days. Previously on Coumadin after suffering the previous CVA stroke. Injures his oral cavity when removing dentures, bleeding has now stopped. On Zosyn for UTI, ASA/Heparin gtt for NSTEMI, denies chest pain, noted to have SOB, hypoxia s/p multiple transfusions - EF 40-45% Previous 19 beat run [place] Allergies: No Known Allergies Past Medical History: Hypertension, Diabetes, previous Cerebrovascular accident with left sided weakness Physical Exam Vital Signs Noted General: NCAT HEENT: moist mm, bleeding lesion under tongue, no further oral bleeding Chest: CTAB Heart: HS1, HS2, RRR Abdomen: Soft, NT, ND Extremities: Well perfused, mild edema CURRICULUM SPECIALIST: Alert, Interactive, Left sided weakness, no seizures Impression: Upper GI bleed Oral hemorrhage Prolonged INR associated with Coumadin therapy - now resolved UTI NSTEMI (non-ST elevated myocardial infarction), Cardiology following Renal failure (ARF), acute on chronic Elevated Lipase Hypertension Diabetes Previous CVA Plan Transfuse FFP, PRBC PRN IV AB Heparin gtt/ASA Lasix PRN BiPAP PRN Reduce IVF Oxygen PRN Protonix IV [employer] medications ISS Monitor labs Presents with upper GI bleed. Patient is taking Coumadin. Nitro-Bid, SL Nitrates PRN. EKG: Rate: normal Rhythm: NSR ST Segments: no acute changes CXR: no acute changes AXR: non specific bowel gas pattern Subjective ROS Limited/Unobtainable: No Allergies: Coded Allergies: No Known Allergies (Unverified , 10/07/17) Objective Last 24 Hour Vital Signs Date Time Temp Pulse Resp B/P (MAP) Pulse Ox O2 Delivery O2 Flow Rate FiO2 08/04/19 20:53 66 152/65 08/04/19 19:04 68 20 96 Facial 40 08/04/19 19:00 63 15 146/69 97 Bi-pap 40 08/04/19 18:00 59 18 134/60 96 Bi-pap 40 08/04/19 17:28 40 08/04/19 17:15 69 24 93 Facial 40 08/04/19 17:15 69 24 93 Bi-Pap 40 08/04/19 17:00 74 29 156/81 87 Venturi Mask 14.0 55 11/18/19 16:42 157/71 08/04/19 16:00 98.6 77 28 157/69 82 Venturi Mask 14.0 55 08/04/19 16:00 97 08/04/19 16:00 Nasal Cannula 2.0 08/04/19 16:00 14.0 55 08/04/19 15:00 69 23 152/71 92 Venturi Mask 8.0 40 08/04/19 14:00 68 21 147/71 85 Venturi Mask 8.0 40 08/04/19 13:00 68 23 149/59 88 Nasal Cannula 2.0 08/04/19 12:22 150/68 08/04/19 12:00 Nasal Cannula 2.0 08/04/19 12:00 68 08/04/19 12:00 72 21 150/68 85 Nasal Cannula 2.0 08/04/19 12:00 8.0 40 08/04/19 11:00 98.7 71 22 144/69 93 Nasal Cannula 2.0 08/04/19 11:00 83 08/04/19 08:00 Nasal Cannula 2.0 08/04/19 08:00 63 08/04/19 07:58 97.7 70 143/70 (94) 19 08/04/19 04:08 98.8 71 153/75 (101) 16 08/04/19 04:00 71 08/04/19 04:00 Nasal Cannula 2.0 08/04/19 00:00 72 08/04/19 00:00 98.2 69 145/65 (91) 18 08/04/19 00:00 Nasal Cannula 2.0 Intake and Output 08/03/19 08/04/19 19:00 07:00 Intake Total 2000 ml 492.5 ml Output Total 900 ml Balance 2000 ml -407.5 ml Intake IV Total 1000 ml 492.5 ml Blood Product 1000 ml Output Urine Total 900 ml # Voids 1 # Bowel Movements 1 Microbiology Date/Time Source Procedure Growth Status 08/03/19 14:20 Urine,Clean Catch Urine Culture - Preliminary Gram Negative Bacillus 1 Resulted 08/03/19 11:50 Rectum Received Laboratory Tests 08/04/19 03:50: White Blood Count 8.9, Red Blood Count 2.85L, Hemoglobin 8.8L, Hematocrit 25.4L , Mean Corpuscular Volume 89, Mean Corpuscular Hemoglobin 30.9, Mean Corpuscular Hemoglobin Concent 34.8, Red Cell Distribution Width 10.9L, Platelet Count 189, Mean Platelet Volume 6.8, Neutrophils (%) (Auto) 68.8, Lymphocytes (%) (Auto) 19.1L, Monocytes (%) (Auto) 7.9, Eosinophils (%) (Auto) 3.6H, Basophils (%) (Auto) 0.6, Erythrocyte Sedimentation Rate 66H, Prothrombin Time 15.0H, Prothromb Time International Ratio 1.4H, Activated Partial Thromboplast Time 33, Sodium Level 147H, Potassium Level 4.1, Chloride Level 112H, Carbon Dioxide Level 25, Anion Gap 10, Blood Urea Nitrogen 54H, Creatinine 2.2H, Estimat Glomerular Filtration Rate 30.3, Glucose Level 137H, Lactic Acid Level 0.50, Calcium Level 8.3L, Magnesium Level 1.5L, Ferritin 38, Total Bilirubin 0.5, Aspartate Amino Transf (AST/SGOT) 48H, Alanine Aminotransferase (ALT/SGPT) 40, Alkaline Phosphatase 112, Troponin I 8.301H, C- Reactive Protein, Quantitative 0.8, Total Protein 6.5, Albumin 3.1L, Globulin 3.4, Albumin/Globulin Ratio 0.9L, Amylase Level 53, Lipase 316, Folate 16.3 08/04/19 09:30: Troponin I 24.745H, Iron Level 30L, Total Iron Binding Capacity 257, Percent Iron Saturation 12L, Unsaturated Iron Binding 227 08/04/19 11:15: White Blood Count 10.7, Red Blood Count 3.40L, Hemoglobin 10.4L, Hematocrit 30.9L, Mean Corpuscular Volume 91, Mean Corpuscular Hemoglobin 30.5, Mean Corpuscular Hemoglobin Concent 33.6, Red Cell Distribution Width 11.2L, Platelet Count 199, Mean Platelet Volume 6.6, Neutrophils (%) (Auto) 80.0H, Lymphocytes (%) (Auto) 8.5L, Monocytes (%) (Auto) 6.8, Eosinophils (%) (Auto) 3.9H, Basophils (%) (Auto) 0.8, Prothrombin Time 16.4H, Prothromb Time International Ratio 1.6H, Activated Partial Thromboplast Time 36H, Sodium Level 147H, Potassium Level 4.2, Chloride Level 112H, Carbon Dioxide Level 23, Anion Gap 12, Blood Urea Nitrogen 50H, Creatinine 2.1H, Estimat Glomerular Filtration Rate 32.0, Glucose Level 126H, Calcium Level 8.3L, Magnesium Level 1.4L, Total Bilirubin 0.5, Aspartate Amino Transf (AST/SGOT) 82H, Alanine Aminotransferase ( ALT/SGPT) 40, Alkaline Phosphatase 115, C-Reactive Protein, Quantitative 2.9H, Total Protein 7.0, Albumin 3.1L, Globulin 3.9, Albumin/Globulin Ratio 0.8L, Hemoglobin A1c 6.4H, Uric Acid 4.4, Phosphorus Level 3.0, Gamma Glutamyl Transpeptidase 16, Total Creatine Kinase 584H, Pro-B-Type Natriuretic Peptide 5945H, Triglycerides Level 70, Cholesterol Level 113, LDL Cholesterol 58, HDL Cholesterol 40, Cholesterol/HDL Ratio 2.8L, Vitamin B12 Level 599, Thyroid Stimulating Hormone (TSH) 5.172H, Salicylates Level 0.8L 08/04/19 18:15: Activated Partial Thromboplast Time 66H Current Medications Medications (Trade) Dose Ordered Sig/Leon Route PRN Reason Start Time Stop Time Status Last Admin Dose Admin Aspirin (ASA) 81 mg DAILY ORAL 08/04/19 16:00 09/03/19 15:59 08/04/19 16:35 Atorvastatin Calcium (Lipitor) 80 mg BEDTIME ORAL 08/04/19 21:00 09/03/19 20:59 08/04/19 20:53 Dextrose (Dextrose 50%) 25 ml Q30M PRN IV Hypoglycemia 08/04/19 11:15 09/02/19 18:14 Dextrose (Dextrose 50%) 50 ml Q30M PRN IV Hypoglycemia 08/04/19 11:15 09/02/19 18:14 Dextrose/Sodium Chloride 1,000 ml @ 50 mls/hr Q20H IV 08/04/19 12:00 09/03/19 11:59 08/04/19 12:17 Heparin Sodium/ Dextrose 500 ml @ 19.958 mls/ hr ADJUST PER PROTOCOL IV 08/04/19 11:52 09/03/19 11:14 08/04/19 12:15 Hydralazine HCl (Apresoline) 10 mg Q6HR ORAL 08/04/19 12:00 09/03/19 11:59 08/04/19 16:42 Insulin Aspart (NovoLOG) BEFORE MEALS AND HS SUBQ 08/04/19 11:30 09/02/19 20:59 08/04/19 20:54 Metoprolol Tartrate (Lopressor) 12.5 mg Q12HR ORAL 08/04/19 21:00 09/03/19 20:59 08/04/19 20:53 Pantoprazole (Protonix) 40 mg EVERY 12 HOURS IVP 08/04/19 21:00 09/02/19 20:59 08/04/19 20:53 Piperacillin Sod/ Tazobactam Sod 3.375 gm/Sodium Chloride 110 ml @ 27.5 mls/hr Q8H IVPB 08/04/19 16:00 08/11/19 00:00 08/04/19 15:32 Tamsulosin HCl (Flomax) 0.4 mg BEDTIME ORAL 08/04/19 21:00 09/03/19 20:59 08/04/19 20:53 Carlton Martin MD Aug 04, 2019 21:11
--- NOTE | 2019-08-04 21:45 | Consultation ---
DATE OF CONSULTATION: 08/04/2019 GASTROENTEROLOGY CONSULTATION CONSULTING PHYSICIAN: Naheed Welch M.D. CHIEF COMPLAINT: I was asked to see this patient by Dr. Oni Schilling today for evaluation of possible gastrointestinal bleeding. HISTORY OF PRESENT ILLNESS: The patient is a pleasant 64-year-old man who comes into the hospital from a residential due to emesis of blood. On further questioning however it appears that the patient has a lesion underneath his dentures, which was ulcerated and bleeding and he believed he had swallowed the blood and eventually had emesis. This process has not stopped and the patient was noted to have a climb in troponin level acute myocardial infarction. PAST MEDICAL HISTORY: History of head trauma, hypertension, hyperlipidemia, nyb-[id number] diabetes mellitus, constipation, prostatic hypertrophy, status post cholecystectomy, status post left shoulder surgery, status post foot surgery, eye surgery. FAMILY HISTORY: Positive for some type of cancer in mother. SOCIAL HISTORY: The patient is single. He does not smoke or drink alcohol. REVIEW OF SYSTEMS: Otherwise negative. PHYSICAL EXAMINATION: GENERAL: Pleasant man, seen in his room. HEENT: Normocephalic, atraumatic. Sclerae anicteric. Oropharynx showed ulceration behind the teeth on the right side on the mandible. NECK: Supple. CHEST: Clear to auscultation. CARDIOVASCULAR: Revealed a regular rate. ABDOMEN: Soft. EXTREMITIES: No edema. LABORATORY DATA: Noted. ASSESSMENT: This patient appears not to have suffered from a gastrointestinal bleeding, but perhaps from a dental source of bleeding, which resolved. His condition is more stable from a cardiac standpoint since he appears to be suffering from acute myocardial infarction. There is no plans for endoscopy at this time although sometime in the future, the patient would likely benefit from a colonoscopy and perhaps an endoscopy at that time as well. RECOMMENDATIONS: 1. Monitor CBC. 2. Monitor cardiac status. 3. Cardiology consult. 4. No plans for endoscopy at this time. 5. Proton pump inhibitor. Thank you for asking me to participate in the care of this patient. Naheed Welch M.D. DR: YAKELIN JOB#: [id number] CC:
--- NOTE | 2019-08-05 10:50 | Discharge Summary ---
Discharge Summary Discharge Summary _ DATE OF ADMISSION: 08/03/2019 DATE OF DISCHARGE: 08/05/2019 DISCHARGED BY: REASON FOR ADMISSION: 64 years old male with past medical history of CVA with left-sided hemiparesis, hypertension, diabetes mellitus, BPH, on Coumadin, presented with possible GI bleeding. Patient reported spitting out blood for 2 days. He denied any nausea. No melena. No abdominal pain. No black stools or bright red blood per rectum. Upon evaluation vital signs were stable. Laboratory work-up revealed no leukocytosis , hemoglobin 11.5, hematocrit 33.4. Platelet count 220. INR 1.8. Potassium 5.3. BUN 59, creatinine 2.3. Glucose 203. Stable LFT. Troponin elevated 2.059. EKG revealed nonspecific ST changes and T wave inversion inferiorly, Lipase 508. Urinalysis was positive for leukocyte esterase , pyuria and many bacteria. Chest x-ray revealed no acute cardiopulmonary pathology. Abdominal x-ray revealed nonspecific bowel gas pattern , no acute disease. Patient was unable to receive aspirin due to possible GI bleeding . Patient was unable to receive metoprolol due to bradycardia. Second EKG revealed correction of inferior T wave inversion. Nitro-Bid was given. Upon closer examination was found that bleeding was coming from the mouth. Patient started on transfusion with fresh frozen plasma. Patient received 4 units of FFP along with DDAVP and TXA topically. Patient also received IV PPI. Bleeding stopped. Patient subsequently admitted for further management. CONSULTANTS: key person Dr. Prado pulmonary Dr. Martin GI specialist Dr. Welch jig worker Dr. Whyte [facility] COURSE: Patient admitted to ICU. Oral hemorrhage was controlled. Patient started on heparin drip for NSTEMI since INR dropped to 1.4 following FFP administration. Source of bleeding was identified as oral /dental. No active bleeding. Heart rate stabilized . Patient started on beta-toby. Antiplatelet therapy with aspirin and statin continued. Blood pressure was closely monitored and managed with hydralazine and beta- toby. Blood sugar was managed with sliding scale of insulin. Biomedical Photographer followed. Supplemental oxygen provided and titrated to keep pulse oximetry above 92%. Pulmonary toilet provided. Renal parameters and electrolytes were closely monitored. BUN from 59 down to 50 and creatinine from 2.3 down to 2.1. Serial troponin revealed sharp rise in troponin. Second troponin 8.3, the last troponin 24.7. Patient was on a waiting list for transfer to a higher level of care. Hemoglobin and hematocrit were closely monitored with goal to keep hemoglobin above 7; prior to discharge hemoglobin 10.4, hematocrit 30.9. Allergy Specialist followed. No need for Epogen or iron at this time. Urine culture revealed E. coli . Patient was on antibiotics for UTI. GI specialist followed. No evidence of GI bleeding at this time. No current plans for endoscopy as per GI specialist. Patient started on PPI. Bowel regimen instituted. Transfer was arranged to higher level of care for cardiac catheterization. Patient was subsequently transferred to [facility] for cardiac catheterization. FINAL DIAGNOSES: NSTEMI Oral hemorrhage/gum bleeding Coagulopathy associated with Coumadin therapy- resolved UTI with E. coli Renal failure , acute on chronic Hypertension Diabetes mellitus History of CVA with left hemiparesis History of ophthalmic bleeding due to apixaban DISCHARGE MEDICATIONS: List of medication was sent with patient DISCHARGE INSTRUCTIONS: Patient was transferred to [facility] for cardiac catheterization I have been assigned to dictate discharge summary for this account. I was not involved in the patient's management. Dina Oconnor NP Aug 05, 2019 10:50
--- NOTE | 2019-08-05 12:35 | Cardiology Report ---
APPROVED REPORT EKG Measurement Heart [id number] Normal sinus rhythm Anterior infarct, age undetermined Abnormal ECG
--- NOTE | 2019-08-06 08:18 | Cardiology Report ---
APPROVED REPORT EXAM: Two-dimensional and M-mode echocardiogram with Doppler and color Doppler. INDICATION Acute DE M-Mode DIMENSIONS IVSd1.0 (0.7-1.1cm)Left Atrium (MM)4.6 (1.6-4.0cm) LVDd4.5 (3.5-5.6cm)Aortic Root3.8 (2.0-3.7cm) PWd1.3 (0.7-1.1cm)Aortic Cusp Exc.2.1 (1.5-2.0cm) LVDs3.0 (2.5-4.0cm) PWs1.0 cm Technically difficult study due to poor apical windows. Normal left ventricular chamber size. There is akinesia of mid to apical anteroseptal wall, inferoseptal wall, inferior wall and apical cap to the extent visualized. Ischemic cardiomyopathy cannot be excluded. Left ventricular ejection fraction is estimated at 40-45%. Mild left ventricular hypertrophy by 2-D. No evidence of pericardial effusion. Mild bi-atrial enlargement. Right ventricular chamber size is within normal limits. Focal aortic valve sclerosis with adequate cusp excursion. Thickened mitral valve leaflets with normal excursion. Mitral annulus and aortic root calcification. Normal pulmonic valve structure. Normal tricuspid valve structure. IVC dilated at 2.5 cm with slight physiologic collapse suggestive of increased RA pressure. A color flow and spectral Doppler study was performed and revealed: Trace aortic regurgitation. Mild mitral regurgitation. Mitral inflow indicates normal left ventricular diastolic function. Moderate tricuspid regurgitation. Tricuspid systolic velocities suggests peak right ventricular systolic pressure of 65 mmHg, consistent with severe pulmonary hypertension.
--- NOTE | 2019-08-06 08:35 | Cardiology Report ---
APPROVED REPORT EKG Measurement Heart [id number] AL [id number] Sinus bradycardia Nonspecific T wave abnormality Abnormal ECG
--- NOTE | 2019-08-06 08:36 | Cardiology Report ---
APPROVED REPORT EKG Measurement Heart [id number] CT [id number] Normal sinus rhythm Abnormal ECG
== END 2019-08-04 23:25 | disposition critical access hospital, planned readmission (94) | DRG 190 ==
LOC: EDBD 11:22 → EMR 11:54 → EDBEDREQSVC 12:26 → EDBEDREQ 15:37 → 2W 15:44 → ICU 08-04 11:12
PROC: 30233K1 Transfusion of Nonautologous Frozen Plasma into Peripheral Vein, Percutaneous Approach (ICD-10-PCS; principal; 2019-08-03)
DX: I21.4 Non-ST elevation (NSTEMI) myocardial infarction (principal); N39.0 Urinary tract infection, site not specified; N17.9 Acute kidney failure, unspecified; D68.9 Coagulation defect, unspecified; E78.5 Hyperlipidemia, unspecified; N40.0 Benign prostatic hyperplasia without lower urinary tract symptoms; Z89.432 Acquired absence of left foot; Z89.431 Acquired absence of right foot; Z79.82 Long term (current) use of aspirin; I69.354 Hemiplegia and hemiparesis following cerebral infarction affecting left non-dominant side; K13.79 Other lesions of oral mucosa; T45.515A Adverse effect of anticoagulants, initial encounter; K06.8 Other specified disorders of gingiva and edentulous alveolar ridge; Z79.4 Long term (current) use of insulin; B96.20 Unspecified Escherichia coli [E. coli] as the cause of diseases classified elsewhere; I12.9 Hypertensive chronic kidney disease with stage 1 through stage 4 chronic kidney disease, or unspecified chronic kidney disease; E11.22 Type 2 diabetes mellitus with diabetic chronic kidney disease; N18.9 Chronic kidney disease, unspecified
CPT/HCPCS: 36415; 36600; 71045; 74018; 76700; 80053; 80061; 81003; 82150; 82550; 82607; 82728; 82746; 82803; 82962; 82977; 83036; 83540; 83550; 83605; 83690; 83735; 83880; 84100; 84443; 84484; 84550; 85025; 85610; 85651; 85730; 86140; 86850; 86900; 86901; 86927; 87081; 87086; 87181; 93005; 93306; 93970; 94664; 96361; 96374; 96375; 99291; 99292; G0480; J1815; J2765; J7030

== ENCOUNTER 2019-10-24 00:32 | Inpatient (IN) | payer MEDICAID ==
[~2019-10-24] VITALS: Ht 177.8 cm; Wt 88.0 kg
[2019-10-24] VITALS (7 sets, daily range): BP systolic 132–143; BP diastolic 65–79
[~2019-10-24 00:32] MED LIST changes: +AMARYL2 MG ORAL; +AMLODIPINE BESYL5 MG ORAL; +COUMADIN10 MG ORAL; +GLUCAGON EMERGEN1 MG IJ
--- NOTE | 2019-10-24 00:47 | NUR ---
ED Nurse Note: pt presents to ED from [facility] via [facility] unit [address] for hypoglycemia. per EMS, pt's BS was 35 at the facility, he was given oral glucose. EMS also report that pt's SpO2 was 85% on room air. he is not usually on O2 at home, but EMS put him on 3L NC, satting at 95%. pt is AOx3
--- NOTE | 2019-10-24 00:48 | NUR ---
ED Nurse Note: Patient's BS 15 at bed side, ER MD aware.
[2019-10-24 00:59] LABS: BASOPHILS % (AUTO) 0.7 % (0.0-2.0); EOSINOPHILS % (AUTO) 3.3 % (0.0-3.0); HEMATOCRIT 29.1 % (42.0-52.0); HEMOGLOBIN 9.7 G/DL (14.2-18.0); LYMPHOCYTES % (AUTO) 19.7 % (20.0-45.0); MEAN CORPUSCULAR VOLUME 95 FL (80-99); MONOCYTES % (AUTO) 9.6 % (1.0-10.0); NEUTROPHILS % (AUTO) 66.7 % (45.0-75.0); PLATELET COUNT 252 K/UL (150-450); RED BLOOD COUNT 3.07 M/UL (4.70-6.10); RED CELL DISTRIBUTION WIDTH 13.2 % (11.6-14.8); WHITE BLOOD COUNT 9.1 K/UL (4.8-10.8)
[2019-10-24] MEDS ORDERED: Dextrose 10%/.45 SOD CHL 1,000 ML IV SCH (01:00)
[2019-10-24] MEDS ORDERED: Dextrose 10% 1,000 ML IV SCH ×3 (01:00→05:15)
[2019-10-24] MEDS ORDERED: Albuterol/Ipratropium 3ml neb HHN ONE (01:00)
[2019-10-24 01:21] LABS: ALANINE AMINOTRANSFERASE 22 U/L (12-78); ALBUMIN 3.4 G/DL (3.4-5.0); ALBUMIN/GLOBULIN RATIO 0.9 (1.0-2.7); ALKALINE PHOSPHATASE 118 U/L (46-116); ANION GAP 10 mmol/L (5-15); ASPARTATE AMINO TRANSFERASE 24 U/L (15-37); BILIRUBIN,TOTAL 0.3 MG/DL (0.2-1.0); BLOOD UREA NITROGEN 49 mg/dL (7-18); CALCIUM 8.5 MG/DL (8.5-10.1); CARBON DIOXIDE 24 MMOL/L (21-32); CHLORIDE 108 MMOL/L (98-107); CREATINE KINASE 97 U/L (26-308); CREATININE 2.3 MG/DL (0.55-1.30); PHOSPHORUS 4.4 MG/DL (2.5-4.9); POTASSIUM 4.5 MMOL/L (3.5-5.1); SODIUM 142 MMOL/L (136-145)
--- NOTE | 2019-10-24 01:36 | NUR ---
ED Nurse Note: Patient's BS went down to 55, per Dr. Merida's order doubled D10 from 50mL/hr to 100mL/hr.
--- NOTE | 2019-10-24 01:41 | Emergency Room Report ---
History of Present Illness General Chief Complaint: Generalized Weakness Source: Patient, Medical Record, EMS Present Illness HPI Patient apparently had low blood sugar at the care home facility. Was 25 and he received 2 shots of glucagon because it is continued to be low. Patient was transported by S ambulance. The patient is altered. There is no evidence of fever. His oximetry was low also in the field. He was started on oxygen. The patient is a poor historian. He denies pain. He denies nausea and vomiting. He states he is been eating. The patient was admitted July of last year. Discharge diagnoses: NSTEMI Oral hemorrhage/gum bleeding Coagulopathy associated with Coumadin therapy- resolved UTI with E. coli Renal failure , acute on chronic Hypertension Diabetes mellitus History of CVA with left hemiparesis History of ophthalmic bleeding due to apixaban Allergies: Coded Allergies: No Known Allergies (Unverified , 10/07/17) Patient History Limited by: medical condition Past Medical History: see triage record, old chart reviewed Past Surgical History: other - Amputation great toe Social History: Denies: alcohol use, drug use Social History Narrative Skilled facility Reviewed Nursing Documentation: PMH: Agreed; PSxH: Agreed Nursing Documentation-PMH Hx Cardiac Problems: Yes - hyperlipidemia, hyperthyroid, hemiplegia on left side due to CVA Hx Hypertension: Yes Hx Diabetes: Yes Hx Cancer: No Hx Gastrointestinal Problems: No Hx Neurological Problems: Yes Hx Cerebrovascular Accident: Yes - Hemiplegia, Hemiparesis, affects L side Review of Systems All Other Systems: limited Physical Exam Vital Signs Date Time Temp Pulse Resp B/P (MAP) Pulse Ox O2 Delivery O2 Flow Rate FiO2 10/24/19 00:35 97.9 74 18 150/69 (96) 85 Room Air 10/24/19 01:15 1.0 24 Sp02 EP Interpretation: reviewed, normal General Appearance: no apparent distress, alert - Confused, Chronically Ill Head: normocephalic Eyes: bilateral eye normal inspection ENT: moist mucus membranes Neck: supple Respiratory: lungs clear, normal breath sounds Cardiovascular #1: regular rate, rhythm Cardiovascular #2: 2+ radial (R) Gastrointestinal: normal inspection, normal bowel sounds, non tender, no mass, distended Genitourinary: no CVA tenderness Musculoskeletal: back normal, no calf tenderness Neurologic: alert, motor weakness Psychiatric: depressed affect Skin: no rash, warm/dry Procedures Critical Care Time Critical Care Time Total Critical Care Time: 60 min bedside evaluation and treatment excludes procedures (EKG). Reason for critical care: Hyperglycemia, repeat Accu-Cheks, non-STEMI, hypoxia Possible complications: hypotension, hypertension, TX, shock, arrhythmias, metabolic acidosis, end organ damage, respiratory failure. Interventions: Repeated doses of D50 water and increasing doses of D10 water, aspirin, hydrocortisone Course: Patient presented with hypoglycemia. Treated in the emergency department initially. Repeat Accu-Cheks and repeat evaluations with repeat doses of D50 water and increasing doses of D10 water. Called with positive troponin. Non-STEMI treated. Repeat EKG and repeat patient evaluation. Hypoxia evaluated for possible pneumonia. Consultations: nursing staff, EMS Performed by: Dr. Merida Tolerated well condition = serious Medical Decision Making Diagnostic Impression: Primary Impression: Hypoglycemia Additional Impressions: Elevated troponin Renal failure (ARF), acute on chronic Qualified Codes: N17.9 - Acute kidney failure, unspecified; N18.3 - Chronic kidney disease, stage 3 (moderate) ER Course Patient presented with hypoglycemia. Differential includes insulin excess, renal failure, occult infection, inadequate oral intake amongst others. Evaluation with EKG, chest x-ray and labs. We need to exclude acute myocardial infarction or non-STEMI. Patient treated with D50 water and D10 water begun. EKG was sinus bradycardia rate [address]-T wave changes not a STEMI. Chest x-ray of COPD with increase river in the left. Labs remarkable for normal white count and hyperglycemia with renal failure. Lab called with positive troponin. Aspirin ordered. EKG without STEMI. Unable to give metoprolol due to bradycardia. Might be metabolic (low sugar). Accu-Chek after initial D50 was 225. Accu-Chek 1 hour later on D10 water at 50 mils per hour is 55. Another amp of D50 given and D10 water increased 200 mils. As he has a history of hypothyroidism and cortisol is given IV. EKG repeat 250. No significant change from EKG #1. Low oxygen saturation unexplained. No evidence of infection at this time. Glucose on increased D10 122. Patient admitted to stepdown unit. Laboratory Tests Test 10/24/19 00:30 10/24/19 03:50 10/24/19 08:00 White Blood Count 9.1 K/UL (4.8-10.8) 6.2 K/UL (4.8-10.8) Red Blood Count 3.07 M/UL (4.70-6.10) L 2.87 M/UL (4.70-6.10) L Hemoglobin 9.7 G/DL (14.2-18.0) L 9.3 G/DL (14.2-18.0) L Hematocrit 29.1 % (42.0-52.0) L 27.5 % (42.0-52.0) L Mean Corpuscular Volume 95 FL (80-99) 96 FL (80-99) Mean Corpuscular Hemoglobin 31.6 PG (27.0-31.0) H 32.3 PG (27.0-31.0) H Mean Corpuscular Hemoglobin Concent 33.4 G/DL (32.0-36.0) 33.7 G/DL (32.0-36.0) Red Cell Distribution Width 13.2 % (11.6-14.8) 13.3 % (11.6-14.8) Platelet Count 252 K/UL (150-450) 210 K/UL (150-450) Mean Platelet Volume 6.4 FL (6.5-10.1) L 6.6 FL (6.5-10.1) Neutrophils (%) (Auto) 66.7 % (45.0-75.0) % (45.0-75.0) Lymphocytes (%) (Auto) 19.7 % (20.0-45.0) L % (20.0-45.0) Monocytes (%) (Auto) 9.6 % (1.0-10.0) % (1.0-10.0) Eosinophils (%) (Auto) 3.3 % (0.0-3.0) H % (0.0-3.0) Basophils (%) (Auto) 0.7 % (0.0-2.0) % (0.0-2.0) Prothrombin Time 11.0 SEC (9.30-11.50) Prothrombin Time INR 1.0 (0.9-1.1) Activated Partial Thromboplast Time 30 SEC (23-33) Sodium Level 142 MMOL/L (136-145) 140 MMOL/L (136-145) Potassium Level 4.5 MMOL/L (3.5-5.1) 4.8 MMOL/L (3.5-5.1) Chloride Level 108 MMOL/L (98-107) H 108 MMOL/L (98-107) H Carbon Dioxide Level 24 MMOL/L (21-32) 22 MMOL/L (21-32) Anion Gap 10 mmol/L (5-15) 10 mmol/L (5-15) Blood Urea Nitrogen 49 mg/dL (7-18) H 45 mg/dL (7-18) H Creatinine 2.3 MG/DL (0.55-1.30) H 2.2 MG/DL (0.55-1.30) H Estimate Glomerular Filtration Rate 28.8 mL/min (>60) 30.3 mL/min (>60) Glucose Level 25 MG/DL (74-106) *L 196 MG/DL (74-106) #H Lactic Acid Level 0.60 mmol/L (0.4-2.0) Calcium Level 8.5 MG/DL (8.5-10.1) 8.4 MG/DL (8.5-10.1) L Phosphorus Level 4.4 MG/DL (2.5-4.9) Magnesium Level 1.6 MG/DL (1.8-2.4) L Total Bilirubin 0.3 MG/DL (0.2-1.0) Aspartate Amino Transferase (AST) 24 U/L (15-37) Alanine Aminotransferase (ALT) 22 U/L (12-78) Alkaline Phosphatase 118 U/L (46-116) H Total Creatine Kinase 97 U/L (26-308) Troponin I 1.823 ng/mL (0.000-0.056) 1.698 ng/mL (0.000-0.056) Pro-B-Type Natriuretic Peptide 81605 pg/mL (0-125) H Total Protein 7.4 G/DL (6.4-8.2) Albumin 3.4 G/DL (3.4-5.0) Globulin 4.0 g/dL Albumin/Globulin Ratio 0.9 (1.0-2.7) L Lipase 339 U/L (73-393) Thyroid Stimulating Hormone (TSH) 0.945 uiU/mL (0.358-3.740) Free Thyroxine 1.20 NG/DL (0.76-1.46) Free Triiodothyronine 1.4 pg/mL (2.3-4.2) L Urine Color Pale yellow Urine Appearance Clear Urine pH 5 (4.5-8.0) Urine Specific [place] 1.015 (1.005-1.035) Urine Protein 3+ (NEGATIVE) H Urine Glucose (UA) Negative (NEGATIVE) Urine Ketones Negative (NEGATIVE) Urine Blood Negative (NEGATIVE) Urine Nitrite Negative (NEGATIVE) Urine Bilirubin Negative (NEGATIVE) Urine Urobilinogen Normal MG/DL (0.0-1.0) Urine Leukocyte Esterase Negative (NEGATIVE) Urine RBC 0-2 /HPF (0 - 0) H Urine WBC 0 /HPF (0 - 0) Urine Squamous Epithelial Cells None /LPF (NONE/OCC) Urine Bacteria None /HPF (NONE) Differential Total Cells Counted 100 Neutrophils % (Manual) 95 % (45-75) H Lymphocytes % (Manual) 4 % (20-45) L Monocytes % (Manual) 1 % (1-10) Eosinophils % (Manual) 0 % (0-3) Basophils % (Manual) 0 % (0-2) Band Neutrophils 0 % (0-8) Platelet Estimate Adequate Platelet Morphology Normal Hypochromasia 1+ Microbiology Date/Time Source Procedure Growth Status 10/24/19 03:45 Nasal Nares - Final Complete 10/24/19 03:45 Nasal Nares - Final Complete EKG Diagnostic Results Rate: bradycardiac Rhythm: NSR ST Segments: no acute changes ASA given to the pt in ED: Yes Rhythm Strip Diag. Results Rhythm: no PVC's, no ectopy, other - Bradycardia Chest X-Ray Diagnostic Results Chest X-Ray Diagnostic Results : Chest X-Ray Ordered: Yes # of Views/Limited/Complete: 1 View Indication: Other EP Interpretation: Yes Interpretation: no consolidation, no effusion, no pneumothorax, other - Surgical apparatus neck, borderline cardiomegaly Impression: Other Electronically Signed by: Electronically signed by Carlton Merida MD Last Vital Signs Date Time Temp Pulse Resp B/P (MAP) Pulse Ox O2 Delivery O2 Flow Rate FiO2 10/24/19 08:00 Room Air Room Air 10/24/19 08:00 67 10/24/19 08:00 98.0 14 138/65 (89) 98 10/24/19 04:29 2.0 10/24/19 04:25 24 Status: improved Disposition: ADMITTED INPATIENT Condition: Critical Referrals: Oni Schilling MD (PCP) Carlton Merida MD Oct 24, 2019 01:41
[2019-10-24] MEDS ORDERED: Hydrocortisone 100mg Inj IV ONE (01:45)
--- NOTE | 2019-10-24 04:25 | NUR ---
ED Nurse Note: Patient was admited to SDU due to hypoglycemia. Patient was transfered to the unit via gurney by ACLS protocol, with all belongings. Patient was transfered with D10 running at rate 100Ml/hr. Patient AAO x3, VSS at this time, skin is intact warm to touch. Patient's BS 114.
--- NOTE | 2019-10-24 04:30 | NUR ---
NURSE NOTES: Received pt from LOU Burns of ED. pt is AO X2, eyes open, denies pain at this time. pt is on 2 L O2 via NC, tolerating well, saturating at 98%; no s/sx of respiratory distress noted at this time. threat monitoring analyst and new gown applied to pt. urinal placed at bedside. dryness and rash noted on bilateral lower extremities, noted left big toe and right middle toe amputation. bilateral feet noted to be edematous. RAC 20 g and LFA 20 g IV sites patent and intact; LFA 20 g running D10W at 75 cc/hr. bedside glucose check 114 at this time. bed in lowest position and locked, siderails up X3, call light within reach. will continue to monitor.
[2019-10-24 04:31] LABS: APPEARANCE,URINE CLEAR; BILIRUBIN, URINE NEGATIVE (NEGATIVE); COLOR,URINE PALE YELLOW; GLUCOSE, URINE (UA) NEGATIVE (NEGATIVE); KETONES,URINE NEGATIVE (NEGATIVE); LEUKOCYTE ESTERASE ,URINE NEGATIVE (NEGATIVE); NITRITE,URINE NEGATIVE (NEGATIVE); PH,URINE 5 (4.5-8.0); PROTEIN,URINE 3+ (NEGATIVE); UROBILINOGEN,URINE NORMAL MG/DL (0.0-1.0)
--- NOTE | 2019-10-24 05:00 | NUR ---
NURSE NOTES: called Dr. Estrada regarding pt's glucose and IV fluid of D10W. received orders from Dr. Estrada, will carry out.
--- NOTE | 2019-10-24 05:16 | NUR ---
NURSE NOTES: called Dr. Bazan regarding pt's troponin level. awaiting call back.
--- NOTE | 2019-10-24 07:10 | NUR ---
NURSE NOTES: received call back with orders from Dr. Bazan. will carry out.
--- NOTE | 2019-10-24 08:03 | NUR ---
HAND-OFF: Report given to LOU Monique. endorsed plan of care.
--- NOTE | 2019-10-24 08:03 | NUR ---
NURSE NOTES: Pt received from LOU Manzanares in stable condition without cardiopulmonary distress noted. Pt awake in bed, opens eyes spontaneously, follows commands, AAO x 2 on RA. Pt is SR to learning coordinator. Skin alterations noted. BG checked 172. Pt has a RAC 20g and LFA 20g running Dextrose 10% at 75 cc/hr. Received order from Dr Farr to insert F/C (Per physician request). Dr. Bazan made aware of 12 Lead EKG results and will see pt today- no new orders placed per Dr Bazan at this time. Bed in lowest position, alarm on, side rails up x 3, call light within reach. Will continue to monitor.
[2019-10-24 08:36] LABS: HEMATOCRIT 27.5 % (42.0-52.0); HEMOGLOBIN 9.3 G/DL (14.2-18.0); MEAN CORPUSCULAR VOLUME 96 FL (80-99); PLATELET COUNT 210 K/UL (150-450); RED BLOOD COUNT 2.87 M/UL (4.70-6.10); RED CELL DISTRIBUTION WIDTH 13.3 % (11.6-14.8); WHITE BLOOD COUNT 6.2 K/UL (4.8-10.8)
[2019-10-24 08:50] LABS: ANION GAP 10 mmol/L (5-15); BLOOD UREA NITROGEN 45 mg/dL (7-18); CALCIUM 8.4 MG/DL (8.5-10.1); CARBON DIOXIDE 22 MMOL/L (21-32); CHLORIDE 108 MMOL/L (98-107); CREATININE 2.2 MG/DL (0.55-1.30); POTASSIUM 4.8 MMOL/L (3.5-5.1); SODIUM 140 MMOL/L (136-145)
--- NOTE | 2019-10-24 08:52 | Consultation ---
Consult Note Consult Note asked to eval at the request of Dr Liu for renal failure RN reported no urine out put kessler inserted and 700 cc urine out examined lethargic not historian discussed with LOU Christine data reviewed old records reviewed bradycardic . Assessment/Plan Urinary retention Renal failure (ARF), acute on chronic Anemia: s/p GI Bleed on anticoagulation h/o Hypertension Elevated troponin h/o Hypothyroid DM- Hypoglycemia on presentation h/o UTI Kessler BP management watch HR Slow Hydrate 2D Echo Kidney MARCO A Avoid nephrotoxics antibiotics Anemia pan Per orders / per consultants Rafa Farr MD Oct 24, 2019 08:52
--- NOTE | 2019-10-24 09:01 | NUR ---
NURSE NOTES: Per MARINO Smith, redraw troponin is 1.698. Dr Bazan made aware. No new orders..
--- NOTE | 2019-10-24 10:52 | Cardiac Electrophysiology PN ---
Subjective Subjective Cardiology consult dictated [id number] Objective Last 24 Hour Vital Signs Date Time Temp Pulse Resp B/P (MAP) Pulse Ox O2 Delivery O2 Flow Rate FiO2 10/24/19 08:00 67 10/24/19 08:00 98.0 76 14 138/65 (89) 98 10/24/19 04:29 Nasal Cannula 2.0 10/24/19 04:25 98.2 70 0 134/79 99 Nasal Cannula 2.0 24 10/24/19 04:25 98.2 70 0 134/79 99 Nasal Cannula 2.0 10/24/19 03:00 97.9 54 18 132/65 98 Room Air 2.0 24 10/24/19 01:28 97.9 48 18 132/65 98 Room Air 10/24/19 01:15 60 18 100 Nasal Cannula 1.0 24 51 18 98 10/24/19 00:50 48 20 10/24/19 00:35 97.9 74 18 150/69 (96) 85 Room Air Intake and Output 10/23/19 10/24/19 19:00 07:00 Intake Total 2047.5 ml Balance 2047.5 ml Intake IV Total 2047.5 ml Laboratory Tests Test 10/24/19 00:30 10/24/19 03:50 10/24/19 08:00 White Blood Count 9.1 K/UL (4.8-10.8) 6.2 K/UL (4.8-10.8) Red Blood Count 3.07 M/UL (4.70-6.10) L 2.87 M/UL (4.70-6.10) L Hemoglobin 9.7 G/DL (14.2-18.0) L 9.3 G/DL (14.2-18.0) L Hematocrit 29.1 % (42.0-52.0) L 27.5 % (42.0-52.0) L Mean Corpuscular Volume 95 FL (80-99) 96 FL (80-99) Mean Corpuscular Hemoglobin 31.6 PG (27.0-31.0) H 32.3 PG (27.0-31.0) H Mean Corpuscular Hemoglobin Concent 33.4 G/DL (32.0-36.0) 33.7 G/DL (32.0-36.0) Red Cell Distribution Width 13.2 % (11.6-14.8) 13.3 % (11.6-14.8) Platelet Count 252 K/UL (150-450) 210 K/UL (150-450) Mean Platelet Volume 6.4 FL (6.5-10.1) L 6.6 FL (6.5-10.1) Neutrophils (%) (Auto) 66.7 % (45.0-75.0) % (45.0-75.0) Lymphocytes (%) (Auto) 19.7 % (20.0-45.0) L % (20.0-45.0) Monocytes (%) (Auto) 9.6 % (1.0-10.0) % (1.0-10.0) Eosinophils (%) (Auto) 3.3 % (0.0-3.0) H % (0.0-3.0) Basophils (%) (Auto) 0.7 % (0.0-2.0) % (0.0-2.0) Prothrombin Time 11.0 SEC (9.30-11.50) Prothromb Time International Ratio 1.0 (0.9-1.1) Activated Partial Thromboplast Time 30 SEC (23-33) Sodium Level 142 MMOL/L (136-145) 140 MMOL/L (136-145) Potassium Level 4.5 MMOL/L (3.5-5.1) 4.8 MMOL/L (3.5-5.1) Chloride Level 108 MMOL/L (98-107) H 108 MMOL/L (98-107) H Carbon Dioxide Level 24 MMOL/L (21-32) 22 MMOL/L (21-32) Anion Gap 10 mmol/L (5-15) 10 mmol/L (5-15) Blood Urea Nitrogen 49 mg/dL (7-18) H 45 mg/dL (7-18) H Creatinine 2.3 MG/DL (0.55-1.30) H 2.2 MG/DL (0.55-1.30) H Estimat Glomerular Filtration Rate 28.8 mL/min (>60) 30.3 mL/min (>60) Glucose Level 25 MG/DL (74-106) *L 196 MG/DL (74-106) #H Lactic Acid Level 0.60 mmol/L (0.4-2.0) Calcium Level 8.5 MG/DL (8.5-10.1) 8.4 MG/DL (8.5-10.1) L Phosphorus Level 4.4 MG/DL (2.5-4.9) Magnesium Level 1.6 MG/DL (1.8-2.4) L Total Bilirubin 0.3 MG/DL (0.2-1.0) Aspartate Amino Transf (AST/SGOT) 24 U/L (15-37) Alanine Aminotransferase (ALT/SGPT) 22 U/L (12-78) Alkaline Phosphatase 118 U/L (46-116) H Total Creatine Kinase 97 U/L (26-308) Troponin I 1.823 ng/mL (0.000-0.056) 1.698 ng/mL (0.000-0.056) Pro-B-Type Natriuretic Peptide 46505 pg/mL (0-125) H Total Protein 7.4 G/DL (6.4-8.2) Albumin 3.4 G/DL (3.4-5.0) Globulin 4.0 g/dL Albumin/Globulin Ratio 0.9 (1.0-2.7) L Lipase 339 U/L (73-393) Thyroid Stimulating Hormone (TSH) 0.945 uiU/mL (0.358-3.740) Free Thyroxine 1.20 NG/DL (0.76-1.46) Free Triiodothyronine 1.4 pg/mL (2.3-4.2) L Urine Color Pale yellow Urine Appearance Clear Urine pH 5 (4.5-8.0) Urine Specific [place] 1.015 (1.005-1.035) Urine Protein 3+ (NEGATIVE) H Urine Glucose (UA) Negative (NEGATIVE) Urine Ketones Negative (NEGATIVE) Urine Blood Negative (NEGATIVE) Urine Nitrite Negative (NEGATIVE) Urine Bilirubin Negative (NEGATIVE) Urine Urobilinogen Normal MG/DL (0.0-1.0) Urine Leukocyte Esterase Negative (NEGATIVE) Urine RBC 0-2 /HPF (0 - 0) H Urine WBC 0 /HPF (0 - 0) Urine Squamous Epithelial Cells None /LPF (NONE/OCC) Urine Bacteria None /HPF (NONE) Differential Total Cells Counted 100 Neutrophils % (Manual) 95 % (45-75) H Lymphocytes % (Manual) 4 % (20-45) L Monocytes % (Manual) 1 % (1-10) Eosinophils % (Manual) 0 % (0-3) Basophils % (Manual) 0 % (0-2) Band Neutrophils 0 % (0-8) Platelet Estimate Adequate Platelet Morphology Normal Hypochromasia 1+ Microbiology Date/Time Source Procedure Growth Status 10/24/19 03:45 Nasal Nares - Final Complete 10/24/19 03:45 Nasal Nares - Final Complete 10/24/19 02:30 Rectum Received Castillo Bazan MD Oct 24, 2019 10:52
--- NOTE | 2019-10-24 11:24 | Diagnostic Imaging Report ---
Indication: Dyspnea Comparison: 08/03/2019 A single view chest radiograph was obtained. Findings: Mild pulmonary vascular congestion demonstrated. The heart is enlarged. Cervical fusion plate noted in the lower part of the cervical spine. Bones may be slightly osteopenic. IMPRESSION: Mild pulmonary vascular congestion suspected
[2019-10-24] MEDS: D5 1/2NS 1,000 ML IV SCH (12:23)
[2019-10-24] MEDS: Nitroglycerin Patch 0.4mg TDERMAL SCH (12:38)
[2019-10-24] MEDS: SandoSTATIN 50mcg Inj SUBQ SCH ×2 (13:37→21:29)
--- NOTE | 2019-10-24 15:27 | NUR ---
CASE MANAGEMENT:INITIAL REVIEW 64 YR OLD MALE BIBA FROM [facility] CC;GENERALIZED WEAKNESS SI;HYPOGLYCEMIA. AC/CHR RENAL FAILURE. ELEVATED TROPONIN. 97.9 48 20 150/69 85% ON RA BUN 45 CR 2.2 TROP 1.698 UA+ PROTEIN, RBC CXR - Mild pulmonary vascular congestion suspected IS;IVF D5W DEXTROSE IV IVF NS ASPIRIN HYDROCORTISONE IV ADMITTED TO SDU SDU STATUS DCP;FROM [facility]
--- NOTE | 2019-10-24 16:22 | NUR ---
*-* INSURANCE *-* ALL CLINICALS AND REVIEWS HAVE BEEN FAXED TO: [facility] REF# [id number] #[phone] FAX#[phone] REVIEWS/CLINICALS
--- NOTE | 2019-10-24 16:45 | Diagnostic Imaging Report ---
Indication:Elevated Bun and Creatinine. Technique: Grayscale and duplex Doppler imaging of the kidneys performed. Comparison: None Findings: The size, contour, and echogenicity of both kidneys are within normal limits. There is no hydronephrosis.. There is a parapelvic right renal cyst measuring 2 cm. The right kidney measures 12.6 cm. in length. The left kidney measures 11.6 cm. in length. There is trace ascites. The IVC is patent. Urinary bladder is unremarkable. Kamara catheter noted. Bilateral pleural effusions are present. IMPRESSION: Negative ultrasound the kidneys. Parapelvic right renal cyst. Bilateral pleural effusions Trace ascites Kamara catheter
[2019-10-24] MEDS: Docusate 100mg cap ORAL SCH (18:00)
--- NOTE | 2019-10-24 18:47 | NUR ---
BEDSIDE SWALLOW EVALUATION COMPLETED POST CHART REVIEW AND INTERVIEW WITH LOU AYALA. PATIENT RESIDENT OF SNF POLST: FULL CODE HX OF SPORATIC/SUBOPTIMAL P.O. INTAKE RESULTING IN UNSTABLE METABOLIC STATUS WHICH PRECIPITATED HOSPITALIZATION DYSPHAGIA RISK FACTORS FOR THIS 64 Y.O. PATIENT: S/P CVA WITH HEMIPARESIS, INITIAL IMPRESSION: PATIENT APPEARS TO PRESENT WITH ESSENTIALLY INTACT OROPHARYNGEAL PHASE OF SWALLOW. WITH P.O. TRIALS OF 4 OZ PUREE, 1/4 OF CRACKER, THIN LIQUIDS (CUP SIP/STRAW), PATIENT PRESENTED WITH WFL ORAL PHASE OF SWALLOW. lINGUAL/LABIAL/FACIAL MUSCULATURE PRESENTS INTACT RELATIVE TO STRENGTH/ROM/COORDINATION. NO OVERT S/S OF ASPIRATION WITH P.O. TRIALS. PHARYNGEAL PHASE WAS PALPATED: HYLOLARYNGEAL ESXCURSION APPEARED TO BE TIMELY AND ADEEQUATE FOR AIRWAY PROTECTION. NO CHANGES IN VOCAL QUALITY, COUGH OR THROAT CLEAR NOTED. CLEAR UPPER AIRWAY SOUNDS PRE/POST SWALLOW. PATIENT REFUSING HIS CURRENT DIET OF PUREE. RECOMMENDATION: 1. ADVANCE TO MECHANICAL SOFT WITH THIN LIQUIDS 2. ST TO FOLLOWUP X 1-2 SESSIONS FOR DIET TOLERANCE.
--- NOTE | 2019-10-24 19:24 | NUR ---
HAND-OFF: Report given to So LOU Wilson. Pt in stable condition.
--- NOTE | 2019-10-24 19:25 | NUR ---
NURSE NOTES: received pt from Eneida BLAKE., pt is awake and AOx2-3 at this moment. pt states no pain. no SOB noted. pt is on 2L of NC and O2sat is at 98%. Left AC 20G and Right FA 20G no s/s of infection or infiltration, and intact, clean, and patent. kessler cath is draining well with gravity, intact, and clean. bed at the lowest position, alarmed, and locked. call light within reach. will continue to monitor pt with plan of care.
--- NOTE | 2019-10-24 20:00 | Consultation ---
DATE OF CONSULTATION: 10/24/2019 PULMONARY CONSULTATION CONSULTING PHYSICIAN: Janes Cox M.D. REFERRING PHYSICIAN: Oni Schilling M.D. HISTORY OF PRESENT ILLNESS: This is a 64-year-old male, who was brought in from a nursing facility. The patient was apparently oliguric and had a Kamara inserted. On my questioning, the patient is very lethargic, unable to answer questions. I have obtained the history predominately from the medical records. The patient was found hypoglycemic in the nursing facility, received glucagon, was brought in by ambulance and he was also hypoxic and placed on oxygen. PAST MEDICAL HISTORY: Hyperlipidemia, hyperthyroidism, previous CVA, hypertension, diabetes. SURGERIES: Not known. REVIEW OF SYSTEMS: Not obtainable. PHYSICAL EXAMINATION: GENERAL: Reveals a 64-year-old male. VITAL SIGNS: Blood pressure is 140/70, heart rate 84, respiratory is 18, afebrile over 70% room air. HEENT: Unremarkable. LUNGS: Clear breath sounds bilaterally. ABDOMEN: Soft. There is no edema. NEUROLOGIC: He is awake, but poorly responsive. Does not follow commands. LABORATORY DATA: Laboratory testing shows hemoglobin 9.2, otherwise normal CBC and BMP. Troponin is 1.69. Urinalysis is negative. Coags are negative. IMAGING STUDIES: The patient underwent a venous duplex of lower extremities, which did not show any evidence of DVT. He did have a chest x-ray, which showed mild pulmonary vascular congestion. IMPRESSION: 1. Mild pulmonary vascular congestion. 2. Hypertension. 3. Diabetes mellitus. 4. Previous CVA. 5. Hypoglycemia. 6. History of hypoxemia. DISCUSSION: Currently, the patient is saturating well on room air. We will follow as needed. I do not suspect acute pulmonary process. question of pulmonary edema, we will defer to Cardiology. Janes Cox M.D. : DARIEL JOB#: [id number] CC:
[2019-10-24] MEDS ORDERED: Atorvastatin 20mg tab ORAL SCH (21:00)
--- NOTE | 2019-10-24 21:00 | Consultation ---
DATE OF CONSULTATION: 10/24/2019 CARDIOLOGY CONSULTATION CONSULTING PHYSICIAN: Castillo Bazan M.D. REFERRING PHYSICIAN: Oni Schilling M.D. REASON FOR CONSULTATION: Non-ST elevation myocardial infarction. HISTORY OF PRESENT ILLNESS: The patient is a very pleasant 64-year-old gentleman whom I am quite familiar from previous admission in March 2019. The patient has history of hypertension, history of right CVA with left hemiplegia, and history of bradycardia, on anticoagulation. It is not clear whether it is for DVT or paroxysmal atrial fibrillation. The patient was brought to the hospital for very [facility] blood [facility]. The blood glucose was only 25. The patient received two shots of glucagon and was transferred by BLS ambulance. The patient was altered in the emergency room. The patient subsequently improved. His troponin was found to be elevated and Cardiology consultation was obtained for further evaluation. At the time of my evaluation, he denies any chest pain, palpitation, or shortness of breath. REVIEW OF SYSTEMS: Negative other than what was mentioned in history of present illness. PAST MEDICAL HISTORY: As mentioned above. FAMILY HISTORY: Noncontributory. SOCIAL HISTORY: He lives in senior living. Does not smoke or drink alcohol. PHYSICAL EXAMINATION: VITAL SIGNS: Show blood pressure of 130/65, pulse 76, respirations 14, and temperature 98. HEAD AND NECK: Showed no JVD. LUNGS: Clear. CARDIOVASCULAR: Shows regular S1 and S2 with no gallop. ABDOMEN: Soft. EXTREMITIES: The patient has left hemiplegia with contraction of left arm. LABORATORY AND DIAGNOSTIC DATA: His labs show white count of 6.2, hemoglobin 9.7, hematocrit of 27.5, and platelet count 210,000. Sodium 140, potassium 4.8, BUN 45, creatinine 2.2, and glucose of 196. Troponin is 1.698 and 1.82. His previous troponin in July 2019 was as high as 24.7. His BNP was 13,000. ASSESSMENT AND PLAN: 1. Non-ST elevation myocardial infarction. Troponin is 1.8. The patient has history of KS in July 2019 with troponin critical of more than 24. However, the patient currently does not have any chest pain and this could be due to renal failure. EKG does not show any ST elevation no significant change from July. His echocardiogram shows EF of 60%. I will repeat the EKG and troponin. Continue aspirin, low-dose beta-toby, and statin. 2. Questionable atrial fibrillation or DVT, currently remain in sinus rhythm. He used to be on anticoagulation. We will hold at this time until further information is available. 3. Hypothyroidism, on Synthroid. 4. History of CVA with left hemiplegia. Thank you very much for allowing me to participate in the care of this patient. Please do not hesitate to contact me for any questions regarding my evaluation. Castillo Bazan M.D. DR: MOISES JOB#: [id number] CC:
[2019-10-24] MEDS: Tamsulosin 0.4mg cap ORAL SCH (21:29)
[2019-10-24] MEDS: Pantoprazole Inj IVP SCH (21:29)
[2019-10-24] MEDS: Atorvastatin 80mg tab ORAL SCH (21:29)
[2019-10-25] VITALS: BP 129/60
--- NOTE | 2019-10-25 | NUR ---
NURSE NOTES: changed whole bed, new chucks, new gown provided. pt states no pain at this moment. no SOB noted. call light within reach. oral care provided.
[2019-10-25] MEDS: D5 1/2NS 1,000 ML IV SCH (01:39)
--- NOTE | 2019-10-25 03:30 | History and Physical Report ---
DATE OF ADMISSION: 10/24/2019 HISTORY OF PRESENT ILLNESS: The patient is being admitted for hypoglycemia, rule out sepsis. The patient has no complaints. Denies nausea, vomiting, or diarrhea. No fever or chills. No shortness of breath. Does not remember the exact scenario why the patient became presyncopal because of hypoglycemia and all he remembers that he got some coke afterwards and that was given to him to improve his blood sugar. The patient is admitted for recurrent hypoglycemia at the longterm as well as to rule out sepsis. The patient also had elevated troponin as well as acute renal failure and low magnesium and also hypoxic. Denies shortness of breath. Denies cough. Denies chills. Denies orthopnea. PAST MEDICAL HISTORY: Significant for hypertension, hyperlipidemia, constipation, BPH, NIDDM, hypothyroidism, arrhythmia, and GERD. PAST SURGICAL HISTORY: Brain surgery, ear surgery, cholecystectomy, bilateral toe amputations. ALLERGIES: No known allergies. MEDICATIONS: Vitamin C, aspirin, Lipitor, clonidine, Plavix, Colace, finasteride, folic acid, Amaryl, insulin Levemir, Levoxyl, losartan, multivitamin, Flomax. FAMILY HISTORY: Noncontributory. SOCIAL HISTORY: Denies history of smoking. No history of alcohol or illicit drugs. Comes from a longterm. REVIEW OF SYSTEMS: HEENT: Denies headaches. RESPIRATORY: Denies shortness of breath. Denies cough. CARDIOVASCULAR: Denies chest pain. GI: Denies nausea, vomiting, or diarrhea. EXTREMITIES: Denies pain. CENTRAL NERVOUS SYSTEM: Denies change in vision or speech pattern. Denies syncopal episodes. Does not remember the dizziness and weakness and altered level of consciousness that was associated with hypoglycemia. He does not remember the specifics. PHYSICAL EXAMINATION: VITAL SIGNS: Temperature 98, pulse is 76, blood pressure is 138/65. HEENT: PERRLA. NECK: Supple. No lymphadenopathy. CHEST: Clear to auscultation. CARDIOVASCULAR: Regular rate and rhythm. No murmurs or extra sounds. GASTROINTESTINAL: Soft, nontender. No organomegaly. EXTREMITIES: No edema. Moves all four extremities. NEUROLOGIC: Sensory intact to light touch. Reflexes equal on both sides. Does have bilateral . Able to move all extremities. LABORATORY DATA: WBC of 9.1, hemoglobin 9.7, platelets 252. Sodium 140, potassium 4.8, chloride 108, BUN of 45, creatinine of 2.2, glucose of 196. Troponin 1.698. ASSESSMENT AND PLAN: Hypoxemia. I have consulted basically Dr. Janes Cox for further workup of hypoxemia and Dr. Hanson because the patient fell at the longterm for pain management and also to rule out any fractures. The patient is complaining of some back pain. The patient has also been consulted by Dr. Farr for acute renal failure, most likely due to dehydration as well as for low magnesium, and has been consulted for the recurrent hypoglycemia and Dr. Bazan has been consulted for acute elevation of troponin, rule out myocardial infarction. Part of this troponin could be also due to the renal leak due to azotemia, renal failure. We will follow the patient closely. Oni Schilling M.D. DR: KAROL JOB#: [id number] CC:
[2019-10-25 04:00] VITALS: BP 140/65
--- NOTE | 2019-10-25 04:00 | NUR ---
NURSE NOTES: no SOB noted, pt is sleeping on the bed. will continue to monitor pt.
[2019-10-25] MEDS: SandoSTATIN 50mcg Inj SUBQ SCH (05:43)
[2019-10-25 05:48] LABS: BASOPHILS % (AUTO) 1.3 % (0.0-2.0); EOSINOPHILS % (AUTO) 4.9 % (0.0-3.0); HEMATOCRIT 25.7 % (42.0-52.0); HEMOGLOBIN 8.5 G/DL (14.2-18.0); LYMPHOCYTES % (AUTO) 21.8 % (20.0-45.0); MEAN CORPUSCULAR VOLUME 98 FL (80-99); MONOCYTES % (AUTO) 10.4 % (1.0-10.0); NEUTROPHILS % (AUTO) 61.6 % (45.0-75.0); PLATELET COUNT 208 K/UL (150-450); RED BLOOD COUNT 2.62 M/UL (4.70-6.10); RED CELL DISTRIBUTION WIDTH 13.3 % (11.6-14.8); WHITE BLOOD COUNT 7.9 K/UL (4.8-10.8)
[2019-10-25 06:40] LABS: ALANINE AMINOTRANSFERASE 19 U/L (12-78); ALBUMIN 2.7 G/DL (3.4-5.0); ALBUMIN/GLOBULIN RATIO 0.8 (1.0-2.7); ALKALINE PHOSPHATASE 95 U/L (46-116); ANION GAP 9 mmol/L (5-15); ASPARTATE AMINO TRANSFERASE 17 U/L (15-37); BILIRUBIN,TOTAL 0.4 MG/DL (0.2-1.0); BLOOD UREA NITROGEN 43 mg/dL (7-18); CALCIUM 7.9 MG/DL (8.5-10.1); CARBON DIOXIDE 23 MMOL/L (21-32); CHLORIDE 108 MMOL/L (98-107); CHOLESTEROL 72 MG/DL (< 200); CREATININE 2.4 MG/DL (0.55-1.30); FERRITIN 54 NG/ML (8-388); GAMMA GLUTAMYL TRANSPEPTIDASE 7 U/L (5-85); HDL CHOLESTEROL 30 MG/DL (40-60); PHOSPHORUS 3.8 MG/DL (2.5-4.9); POTASSIUM 4.7 MMOL/L (3.5-5.1); SODIUM 140 MMOL/L (136-145); TRIGLYCERIDES 34 MG/DL (30-150)
[2019-10-25 06:46] LABS: % IRON SATURATION 14 % (15-50); IRON 36 ug/dL (50-175); TOTAL IRON BINDING CAPACITY 253 ug/dL (250-450)
--- NOTE | 2019-10-25 07:06 | NUR ---
HAND-OFF: Report given to Isaias BLAKE. pt is in stable condition.endorsed plan of care
--- NOTE | 2019-10-25 07:07 | NUR ---
NURSE NOTES: Report received from LOU Fortune. Pt is awake, alert, and oriented x3-4. No signs and symptoms of hypoglycemia noted. Sinus rhythm on monitoring and evaluation advisor. On 2L N/C. O2 sat 93-96%. Left side weakness noted. Kamara in place draining to gravity. IV to right FA G20 and left AC G20 patent and asymptomatic. Pt is receiving D51/2NS at 75cc/hr. Bed in lowest position. Side rails up x3. Call light within reach. Will resume plan of care.
[2019-10-25 08:00] VITALS: BP 143/75
[2019-10-25] MEDS: Docusate 100mg cap ORAL SCH ×2 (09:00→17:10)
[2019-10-25] MEDS: Aspirin EC 81mg tab ORAL SCH (09:09)
[2019-10-25] MEDS: Pantoprazole Inj IVP SCH (09:09)
--- NOTE | 2019-10-25 09:55 | Pulmonology Progress Note ---
Assessment/Plan Assessment/Plan IMPRESSION: 1. Mild pulmonary vascular congestion. 2. Hypertension. 3. Diabetes mellitus. 4. Previous CVA. 5. Hypoglycemia. 6. Hypoxemia. DISCUSSION: Continue low flow O2 Suggest diuresis Janes Cox M.D. Subjective Interval Events: On low flow O2 Constitutional: Reports: no symptoms HEENT: Repors: no symptoms Respiratory: Reports: no symptoms Cardiovascular: Reports: no symptoms Gastrointestinal/Abdominal: Reports: no symptoms Allergies: Coded Allergies: No Known Allergies (Unverified , 10/07/17) Objective Last 24 Hour Vital Signs Date Time Temp Pulse Resp B/P (MAP) Pulse Ox O2 Delivery O2 Flow Rate FiO2 10/25/19 09:10 71 143/75 10/25/19 09:10 71 143/75 10/25/19 04:00 Nasal Cannula 2.0 Nasal Cannula 2.0 10/25/19 04:00 97.8 65 15 140/65 (90) 96 10/25/19 04:00 2.0 10/25/19 04:00 64 10/25/19 00:00 Nasal Cannula 2.0 Nasal Cannula 2.0 10/25/19 00:00 63 10/25/19 00:00 97.7 65 18 129/60 (83) 95 10/25/19 00:00 2.0 10/25/19 00:00 Nasal Cannula 2.0 Nasal Cannula 2.0 10/24/19 22:00 Nasal Cannula 2.0 Nasal Cannula 2.0 10/24/19 21:30 67 136/68 10/24/19 20:00 96.9 65 15 136/68 (90) 95 10/24/19 20:00 69 10/24/19 20:00 Nasal Cannula 2.0 Nasal Cannula 2.0 10/24/19 20:00 2.0 10/24/19 16:00 72 10/24/19 16:00 97.9 74 14 143/70 (94) 91 10/24/19 16:00 2.0 10/24/19 16:00 Nasal Cannula 2.0 Nasal Cannula 2.0 10/24/19 12:38 143/71 10/24/19 12:00 98.1 78 16 143/71 (95) 95 10/24/19 12:00 Room Air Room Air 10/24/19 11:25 81 Intake and Output 10/24/19 10/25/19 19:00 07:00 Intake Total 871.25 ml 708.75 ml Output Total 1000 ml 800 ml Balance -128.75 ml -91.25 ml Intake Oral 320 ml IV Total 871.25 ml 388.75 ml Output Urine Total 1000 ml 800 ml # Bowel Movements 4 4 General Appearance: no acute distress HEENT: normocephalic Respiratory/Chest: chest wall non-tender, lungs clear Cardiovascular: normal peripheral pulses Abdomen: normal bowel sounds Microbiology Date/Time Source Procedure Growth Status 10/24/19 00:46 Blood Blood Culture - Preliminary NO GROWTH AFTER 24 HOURS Resulted 10/24/19 00:30 Blood Blood Culture - Preliminary NO GROWTH AFTER 24 HOURS Resulted 10/24/19 03:45 Nasal Nares - Final Complete 10/24/19 03:45 Nasal Nares - Final Complete 10/24/19 02:30 Rectum Received Laboratory Tests 10/25/19 04:00: White Blood Count 7.9, Red Blood Count 2.62L, Hemoglobin 8.5L, Hematocrit 25.7L , Mean Corpuscular Volume 98, Mean Corpuscular Hemoglobin 32.3H, Mean Corpuscular Hemoglobin Concent 33.0, Red Cell Distribution Width 13.3, Platelet Count 208, Mean Platelet Volume 6.9, Neutrophils (%) (Auto) 61.6, Lymphocytes (% ) (Auto) 21.8, Monocytes (%) (Auto) 10.4H, Eosinophils (%) (Auto) 4.9H, Basophils (%) (Auto) 1.3, Sodium Level 140, Potassium Level 4.7, Chloride Level 108H, Carbon Dioxide Level 23, Anion Gap 9, Blood Urea Nitrogen 43H, Creatinine 2.4H, Estimat Glomerular Filtration Rate 27.4, Glucose Level 242H, Hemoglobin A1c 5.0, Uric Acid 6.1, Calcium Level 7.9L, Phosphorus Level 3.8, Magnesium Level 1.5L, Iron Level 36L, Total Iron Binding Capacity 253, Percent Iron Saturation 14L, Unsaturated Iron Binding 217, Ferritin 54, Total Bilirubin 0.4, Gamma Glutamyl Transpeptidase 7, Aspartate Amino Transf (AST/SGOT) 17, Alanine Aminotransferase (ALT/SGPT) 19, Alkaline Phosphatase 95, Troponin I 1.296H, C- Reactive Protein, Quantitative < 0.4, Pro-B-Type Natriuretic Peptide 72900T, Total Protein 6.3L, Albumin 2.7L, Globulin 3.6, Albumin/Globulin Ratio 0.8L, Triglycerides Level 34, Cholesterol Level 72, LDL Cholesterol 37, HDL Cholesterol 30L, Cholesterol/HDL Ratio 2.4L, Vitamin B12 Level 436, Folate 17.8 Current Medications Medications (Trade) Dose Ordered Sig/Leon Route PRN Reason Start Time Stop Time Status Last Admin Dose Admin Acetaminophen (Tylenol) 500 mg Q4H PRN ORAL Mild Pain/Temp > 100.5 10/24/19 04:30 11/23/19 04:29 Amlodipine Besylate (Norvasc) 5 mg DAILY ORAL 10/25/19 09:00 11/24/19 08:59 10/25/19 09:10 Aspirin (Ecotrin) 81 mg DAILY ORAL 10/25/19 09:00 11/24/19 08:59 10/25/19 09:09 Atorvastatin Calcium (Lipitor) 80 mg BEDTIME ORAL 10/24/19 21:00 11/23/19 20:59 10/24/19 21:29 Clopidogrel Bisulfate (Plavix) 75 mg DAILY ORAL 10/25/19 09:00 11/24/19 08:59 10/25/19 09:09 Dextrose (Dextrose 50%) 25 ml Q30M PRN IV Hypoglycemia 10/24/19 05:15 11/23/19 05:14 Dextrose (Dextrose 50%) 50 ml Q30M PRN IV Hypoglycemia 10/24/19 05:15 11/23/19 05:14 Dextrose/Sodium Chloride 1,000 ml @ 75 mls/hr [id number] IV 10/24/19 12:15 11/23/19 12:14 10/25/19 01:39 Docusate Sodium (Colace) 100 mg TWICE A DAY ORAL 10/24/19 18:00 11/23/19 17:59 Finasteride (Proscar) 5 mg DAILY ORAL 10/25/19 09:00 11/24/19 08:59 10/25/19 09:09 Iron Sucrose 200 mg/Sodium Chloride 120 ml @ 240 mls/hr ONCE ONCE IV 10/25/19 11:00 10/25/19 11:29 Levothyroxine Sodium (Synthroid) 150 mcg DAILY@0630 ORAL 10/24/19 06:30 11/23/19 06:29 10/25/19 05:44 Magnesium Sulfate 100 ml @ 100 mls/hr Q1H IVPB 10/25/19 09:00 10/25/19 10:59 10/25/19 09:09 Metoprolol Tartrate (Lopressor) 25 mg Q12HR ORAL 10/24/19 21:00 11/23/19 20:59 10/25/19 09:10 Nitroglycerin (Ntg) 1 patch Q24H TDERMAL 10/24/19 12:30 11/23/19 12:29 10/24/19 12:38 Octreotide Acetate (SandoSTATIN) 50 mcg Q8HR SUBQ 10/24/19 14:00 11/23/19 13:59 10/25/19 05:43 Pantoprazole (Protonix) 40 mg EVERY 12 HOURS IVP 10/24/19 21:00 11/23/19 20:59 10/25/19 09:09 Tamsulosin HCl (Flomax) 0.4 mg BEDTIME ORAL 10/24/19 21:00 11/23/19 20:59 10/24/19 21:29 Janes Cox MD Oct 25, 2019 09:55
[2019-10-25] MEDS: Furosemide 40mg tab ORAL SCH (10:11)
--- NOTE | 2019-10-25 10:13 | Nephrology Progress Note ---
Assessment/Plan Problem List: (1) Renal failure (ARF), acute on chronic (2) Elevated troponin (3) Hypoglycemia (4) Hypothyroid (5) HTN (hypertension) (6) Diabetic nephropathy (7) Anemia in chronic kidney disease (CKD) Assessment Urinary retention Renal failure (ARF), acute on chronic Anemia: s/p GI Bleed on anticoagulation h/o Hypertension Elevated troponin h/o Hypothyroid DM- Hypoglycemia on presentation h/o UTI Plan Kamara BP management IV Iron watch HR 2D Echo NOTED Kidney MARCO A NOTED Avoid nephrotoxics antibiotics Per orders / per consultants Subjective ROS Limited/Unobtainable: No Constitutional: Reports: malaise Objective Objective Last 24 Hour Vital Signs Date Time Temp Pulse Resp B/P (MAP) Pulse Ox O2 Delivery O2 Flow Rate FiO2 10/25/19 09:10 71 143/75 10/25/19 09:10 71 143/75 10/25/19 08:00 98.8 71 16 143/75 (97) 96 10/25/19 04:00 Nasal Cannula 2.0 Nasal Cannula 2.0 10/25/19 04:00 97.8 65 15 140/65 (90) 96 10/25/19 04:00 2.0 10/25/19 04:00 64 10/25/19 00:00 Nasal Cannula 2.0 Nasal Cannula 2.0 10/25/19 00:00 63 10/25/19 00:00 97.7 65 18 129/60 (83) 95 10/25/19 00:00 2.0 10/25/19 00:00 Nasal Cannula 2.0 Nasal Cannula 2.0 10/24/19 22:00 Nasal Cannula 2.0 Nasal Cannula 2.0 10/24/19 21:30 67 136/68 10/24/19 20:00 96.9 65 15 136/68 (90) 95 10/24/19 20:00 69 10/24/19 20:00 Nasal Cannula 2.0 Nasal Cannula 2.0 10/24/19 20:00 2.0 10/24/19 16:00 72 10/24/19 16:00 97.9 74 14 143/70 (94) 91 10/24/19 16:00 2.0 10/24/19 16:00 Nasal Cannula 2.0 Nasal Cannula 2.0 10/24/19 12:38 143/71 10/24/19 12:00 98.1 78 16 143/71 (95) 95 10/24/19 12:00 Room Air Room Air 10/24/19 11:25 81 Intake and Output 10/24/19 10/25/19 19:00 07:00 Intake Total 871.25 ml 708.75 ml Output Total 1000 ml 800 ml Balance -128.75 ml -91.25 ml Intake Oral 320 ml IV Total 871.25 ml 388.75 ml Output Urine Total 1000 ml 800 ml # Bowel Movements 4 4 Laboratory Tests 10/25/19 04:00: White Blood Count 7.9, Red Blood Count 2.62L, Hemoglobin 8.5L, Hematocrit 25.7L , Mean Corpuscular Volume 98, Mean Corpuscular Hemoglobin 32.3H, Mean Corpuscular Hemoglobin Concent 33.0, Red Cell Distribution Width 13.3, Platelet Count 208, Mean Platelet Volume 6.9, Neutrophils (%) (Auto) 61.6, Lymphocytes (% ) (Auto) 21.8, Monocytes (%) (Auto) 10.4H, Eosinophils (%) (Auto) 4.9H, Basophils (%) (Auto) 1.3, Sodium Level 140, Potassium Level 4.7, Chloride Level 108H, Carbon Dioxide Level 23, Anion Gap 9, Blood Urea Nitrogen 43H, Creatinine 2.4H, Estimat Glomerular Filtration Rate 27.4, Glucose Level 242H, Hemoglobin A1c 5.0, Uric Acid 6.1, Calcium Level 7.9L, Phosphorus Level 3.8, Magnesium Level 1.5L, Iron Level 36L, Total Iron Binding Capacity 253, Percent Iron Saturation 14L, Unsaturated Iron Binding 217, Ferritin 54, Total Bilirubin 0.4, Gamma Glutamyl Transpeptidase 7, Aspartate Amino Transf (AST/SGOT) 17, Alanine Aminotransferase (ALT/SGPT) 19, Alkaline Phosphatase 95, Troponin I 1.296H, C- Reactive Protein, Quantitative < 0.4, Pro-B-Type Natriuretic Peptide 11540Z, Total Protein 6.3L, Albumin 2.7L, Globulin 3.6, Albumin/Globulin Ratio 0.8L, Triglycerides Level 34, Cholesterol Level 72, LDL Cholesterol 37, HDL Cholesterol 30L, Cholesterol/HDL Ratio 2.4L, Vitamin B12 Level 436, Folate 17.8 Height (Feet): 5 Height (Inches): 10.00 Weight (Pounds): 228 General Appearance: no apparent distress, lethargic Cardiovascular: normal rate Respiratory/Chest: decreased breath sounds Abdomen: soft Rafa Farr MD Oct 25, 2019 10:13
--- NOTE | 2019-10-25 10:30 | NUR ---
NURSE NOTES: Cleaned pt for moderate amount of soft brown BM. Repositioned pt. Pt is sleeping in bed.
--- NOTE | 2019-10-25 10:54 | NUR ---
RD ASSESSMENT & RECOMMENDATIONS SEE CARE ACTIVITY FOR COMPLETE ASSESSMENT DAILY ESTIMATED NEEDS: Needs based on DM, Cardiac, Obesity, renal/ 81.7kg abw 22-25 kcals/kg 8741-8483 total kcals 0.8-1.2 g protein/kg 66-98 g total protein 20-25 mL/kg 7363-1224 total fluid mLs NUTRITION DIAGNOSIS: * Altered nutrition related lab values R/T diabetes, cardiac hx as evidenced by elev BGs (242 196), elev POC glu (212 231 259 265), elev BNP (02136) * Swallowing difficulty R/T dysphagia, h/o CVA as evidenced by [facility] recommends [facility] soft chopped texture diet. CURRENT DIET:CARDIAC, mech soft chopped PO DIET RECOMMENDATIONS: LOW NA, CCHO MED/ texture per [facility] [facility] ADDITIONAL RECOMMENDATIONS: * 1-2 carb snacks TID in b/w meals * Monitor for hypoglycemia * Consider NISS: POC glu now in the 200's * Monitor PO intake closely: pt reports disliking hospital food * Monitor lytes closely w/ Lasix, replete as needed (low mag)
[2019-10-25] MEDS ORDERED: Iron Sucrose 200 MG in NS 110 ML IV ONE (11:00)
[2019-10-25 11:35] VITALS: BP 147/79
[2019-10-25] MEDS: Nitroglycerin Patch 0.4mg TDERMAL SCH (12:21)
--- NOTE | 2019-10-25 13:00 | NUR ---
NURSE NOTES: Mother and another family member came with food. Pt is eating lunch in bed. Dr Estrada at bedside, talking to patient and family members.
[2019-10-25] MEDS ORDERED: D5 1/2NS 1000ml IV ONE (13:06)
[2019-10-25] MEDS ORDERED: Tubing IV Secondary IV ONE (13:06)
--- NOTE | 2019-10-25 13:52 | General Progress Note ---
Assessment/Plan Problem List: (1) Hypothyroid ICD Codes: E03.9 - Hypothyroidism, unspecified SNOMED: 13528262 (2) HTN (hypertension) ICD Codes: I10 - Essential (primary) hypertension SNOMED: 47603943 (3) Diabetic nephropathy ICD Codes: E11.21 - Type 2 diabetes mellitus with diabetic nephropathy SNOMED: 611390050 (4) Hypoglycemia ICD Codes: E16.2 - Hypoglycemia, unspecified SNOMED: 630016430 (5) Renal failure (ARF), acute on chronic ICD Codes: N17.9 - Acute kidney failure, unspecified; N18.9 - Chronic kidney disease, unspecified SNOMED: 458042441 Qualifiers: Qualified Codes: N17.9 - Acute kidney failure, unspecified; N18.3 - Chronic kidney disease, stage 3 (moderate) Assessment/Plan: DC Octreotide continue LT4 150 mcg daily continue glucose monitoring hypoglycemia protocol discussed with mother and sister at bedside Subjective Allergies: Coded Allergies: No Known Allergies (Unverified , 10/07/17) All Systems: reviewed and negative except above Subjective events noted interval notes reviewed glucose values raised dextrose DC'ed by Dr Farr mother and sister are at bedside Item Value Date Time Bedside Blood Glucose 204 mg/dl H 10/25/19 1200 Bedside Blood Glucose 230 mg/dl H 10/25/19 0800 Bedside Blood Glucose 212 mg/dl H 10/25/19 0400 Bedside Blood Glucose 231 mg/dl H 10/25/19 0100 Objective Last 24 Hour Vital Signs Date Time Temp Pulse Resp B/P (MAP) Pulse Ox O2 Delivery O2 Flow Rate FiO2 10/25/19 12:21 147/79 10/25/19 12:00 Nasal Cannula 2.0 Nasal Cannula 2.0 10/25/19 12:00 2.0 10/25/19 11:40 60 10/25/19 11:35 98.8 57 17 147/79 (101) 94 10/25/19 09:10 71 143/75 10/25/19 09:10 71 143/75 10/25/19 08:00 2.0 10/25/19 08:00 98.8 71 16 143/75 (97) 96 10/25/19 08:00 Nasal Cannula 2.0 Nasal Cannula 2.0 10/25/19 07:53 72 10/25/19 04:00 Nasal Cannula 2.0 Nasal Cannula 2.0 10/25/19 04:00 97.8 65 15 140/65 (90) 96 10/25/19 04:00 2.0 10/25/19 04:00 64 10/25/19 00:00 Nasal Cannula 2.0 Nasal Cannula 2.0 10/25/19 00:00 63 10/25/19 00:00 97.7 65 18 129/60 (83) 95 10/25/19 00:00 2.0 10/25/19 00:00 Nasal Cannula 2.0 Nasal Cannula 2.0 10/24/19 22:00 Nasal Cannula 2.0 Nasal Cannula 2.0 10/24/19 21:30 67 136/68 10/24/19 20:00 96.9 65 15 136/68 (90) 95 10/24/19 20:00 69 10/24/19 20:00 Nasal Cannula 2.0 Nasal Cannula 2.0 10/24/19 20:00 2.0 10/24/19 16:00 72 10/24/19 16:00 97.9 74 14 143/70 (94) 91 10/24/19 16:00 2.0 10/24/19 16:00 Nasal Cannula 2.0 Nasal Cannula 2.0 Intake and Output 10/24/19 10/25/19 19:00 07:00 Intake Total 871.25 ml 708.75 ml Output Total 1000 ml 800 ml Balance -128.75 ml -91.25 ml Intake Oral 320 ml IV Total 871.25 ml 388.75 ml Output Urine Total 1000 ml 800 ml # Bowel Movements 4 4 Laboratory Tests 10/25/19 04:00: White Blood Count 7.9, Red Blood Count 2.62L, Hemoglobin 8.5L, Hematocrit 25.7L , Mean Corpuscular Volume 98, Mean Corpuscular Hemoglobin 32.3H, Mean Corpuscular Hemoglobin Concent 33.0, Red Cell Distribution Width 13.3, Platelet Count 208, Mean Platelet Volume 6.9, Neutrophils (%) (Auto) 61.6, Lymphocytes (% ) (Auto) 21.8, Monocytes (%) (Auto) 10.4H, Eosinophils (%) (Auto) 4.9H, Basophils (%) (Auto) 1.3, Sodium Level 140, Potassium Level 4.7, Chloride Level 108H, Carbon Dioxide Level 23, Anion Gap 9, Blood Urea Nitrogen 43H, Creatinine 2.4H, Estimat Glomerular Filtration Rate 27.4, Glucose Level 242H, Hemoglobin A1c 5.0, Uric Acid 6.1, Calcium Level 7.9L, Phosphorus Level 3.8, Magnesium Level 1.5L, Iron Level 36L, Total Iron Binding Capacity 253, Percent Iron Saturation 14L, Unsaturated Iron Binding 217, Ferritin 54, Total Bilirubin 0.4, Gamma Glutamyl Transpeptidase 7, Aspartate Amino Transf (AST/SGOT) 17, Alanine Aminotransferase (ALT/SGPT) 19, Alkaline Phosphatase 95, Troponin I 1.296H, C- Reactive Protein, Quantitative < 0.4, Pro-B-Type Natriuretic Peptide 01136M, Total Protein 6.3L, Albumin 2.7L, Globulin 3.6, Albumin/Globulin Ratio 0.8L, Triglycerides Level 34, Cholesterol Level 72, LDL Cholesterol 37, HDL Cholesterol 30L, Cholesterol/HDL Ratio 2.4L, Vitamin B12 Level 436, Folate 17.8 Height (Feet): 5 Height (Inches): 10.00 Weight (Pounds): 228 General Appearance: no apparent distress Neck: normal alignment Cardiovascular: normal rate Respiratory/Chest: lungs clear Abdomen: normal bowel sounds Edema: no edema noted Arm (L), no edema noted Arm (R), no edema noted Leg (L), no edema noted Leg (R), no edema noted Pedal (L), no edema noted Pedal (R), no edema noted Generalized Objective Current Medications Medications (Trade) Dose Ordered Sig/Leon Route PRN Reason Start Time Stop Time Status Last Admin Dose Admin Acetaminophen (Tylenol) 500 mg Q4H PRN ORAL Mild Pain/Temp > 100.5 10/24/19 04:30 11/23/19 04:29 Amlodipine Besylate (Norvasc) 5 mg Q12HR ORAL 10/25/19 21:00 11/24/19 20:59 Aspirin (Ecotrin) 81 mg DAILY ORAL 10/25/19 09:00 11/24/19 08:59 10/25/19 09:09 Atorvastatin Calcium (Lipitor) 80 mg BEDTIME ORAL 10/24/19 21:00 11/23/19 20:59 10/24/19 21:29 Clopidogrel Bisulfate (Plavix) 75 mg DAILY ORAL 10/25/19 09:00 11/24/19 08:59 10/25/19 09:09 Dextrose (Dextrose 50%) 25 ml Q30M PRN IV Hypoglycemia 10/24/19 05:15 11/23/19 05:14 Dextrose (Dextrose 50%) 50 ml Q30M PRN IV Hypoglycemia 10/24/19 05:15 11/23/19 05:14 Docusate Sodium (Colace) 100 mg TWICE A DAY ORAL 10/24/19 18:00 11/23/19 17:59 Finasteride (Proscar) 5 mg DAILY ORAL 10/25/19 09:00 11/24/19 08:59 10/25/19 09:09 Furosemide (Lasix) 40 mg DAILY ORAL 10/25/19 10:00 11/24/19 09:59 10/25/19 10:11 Levothyroxine Sodium (Synthroid) 150 mcg DAILY@0630 ORAL 10/24/19 06:30 11/23/19 06:29 10/25/19 05:44 Metoprolol Tartrate (Lopressor) 25 mg Q12HR ORAL 10/24/19 21:00 11/23/19 20:59 10/25/19 09:10 Nitroglycerin (Ntg) 1 patch Q24H TDERMAL 10/24/19 12:30 11/23/19 12:29 10/25/19 12:21 Octreotide Acetate (SandoSTATIN) 50 mcg Q8HR SUBQ 10/24/19 14:00 11/23/19 13:59 10/25/19 05:43 Pantoprazole (Protonix) 40 mg EVERY 12 HOURS ORAL 10/25/19 21:00 11/24/19 20:59 Tamsulosin HCl (Flomax) 0.4 mg BEDTIME ORAL 10/24/19 21:00 11/23/19 20:59 10/24/19 21:29 Aureliano Estrada MD Oct 25, 2019 13:52
--- NOTE | 2019-10-25 14:09 | Cardiac Electrophysiology PN ---
Assessment/Plan Assessment/Plan 1. Non-ST elevation myocardial infarction. Troponin is 1.8.Down to 1.3 and no CP. ECG no acute ischemia and ECho Nl EF. Likely due to renal failure. Has history of LA in July 2019 with troponin critical of more than 24. His echocardiogram shows EF of 60%. Continue aspirin, low-dose beta-toby, and statin. 2. Questionable atrial fibrillation or DVT, currently remain in sinus rhythm. He used to be on anticoagulation. 3. Hypothyroidism, on Synthroid. 4. History of CVA with left hemiplegia.On Plavix DW RN Subjective Subjective Feeling better. In SR No CP or SOB. BS is better Objective Last 24 Hour Vital Signs Date Time Temp Pulse Resp B/P (MAP) Pulse Ox O2 Delivery O2 Flow Rate FiO2 10/25/19 12:21 147/79 10/25/19 12:00 Nasal Cannula 2.0 Nasal Cannula 2.0 10/25/19 12:00 2.0 10/25/19 11:40 60 10/25/19 11:35 98.8 57 17 147/79 (101) 94 10/25/19 09:10 71 143/75 10/25/19 09:10 71 143/75 10/25/19 08:00 2.0 10/25/19 08:00 98.8 71 16 143/75 (97) 96 10/25/19 08:00 Nasal Cannula 2.0 Nasal Cannula 2.0 10/25/19 07:53 72 10/25/19 04:00 Nasal Cannula 2.0 Nasal Cannula 2.0 10/25/19 04:00 97.8 65 15 140/65 (90) 96 10/25/19 04:00 2.0 10/25/19 04:00 64 10/25/19 00:00 Nasal Cannula 2.0 Nasal Cannula 2.0 10/25/19 00:00 63 10/25/19 00:00 97.7 65 18 129/60 (83) 95 10/25/19 00:00 2.0 10/25/19 00:00 Nasal Cannula 2.0 Nasal Cannula 2.0 10/24/19 22:00 Nasal Cannula 2.0 Nasal Cannula 2.0 10/24/19 21:30 67 136/68 10/24/19 20:00 96.9 65 15 136/68 (90) 95 10/24/19 20:00 69 10/24/19 20:00 Nasal Cannula 2.0 Nasal Cannula 2.0 10/24/19 20:00 2.0 10/24/19 16:00 72 10/24/19 16:00 97.9 74 14 143/70 (94) 91 10/24/19 16:00 2.0 10/24/19 16:00 Nasal Cannula 2.0 Nasal Cannula 2.0 Intake and Output 10/24/19 10/25/19 19:00 07:00 Intake Total 871.25 ml 708.75 ml Output Total 1000 ml 800 ml Balance -128.75 ml -91.25 ml Intake Oral 320 ml IV Total 871.25 ml 388.75 ml Output Urine Total 1000 ml 800 ml # Bowel Movements 4 4 Laboratory Tests Test 10/25/19 04:00 White Blood Count 7.9 K/UL (4.8-10.8) Red Blood Count 2.62 M/UL (4.70-6.10) L Hemoglobin 8.5 G/DL (14.2-18.0) L Hematocrit 25.7 % (42.0-52.0) L Mean Corpuscular Volume 98 FL (80-99) Mean Corpuscular Hemoglobin 32.3 PG (27.0-31.0) H Mean Corpuscular Hemoglobin Concent 33.0 G/DL (32.0-36.0) Red Cell Distribution Width 13.3 % (11.6-14.8) Platelet Count 208 K/UL (150-450) Mean Platelet Volume 6.9 FL (6.5-10.1) Neutrophils (%) (Auto) 61.6 % (45.0-75.0) Lymphocytes (%) (Auto) 21.8 % (20.0-45.0) Monocytes (%) (Auto) 10.4 % (1.0-10.0) H Eosinophils (%) (Auto) 4.9 % (0.0-3.0) H Basophils (%) (Auto) 1.3 % (0.0-2.0) Sodium Level 140 MMOL/L (136-145) Potassium Level 4.7 MMOL/L (3.5-5.1) Chloride Level 108 MMOL/L (98-107) H Carbon Dioxide Level 23 MMOL/L (21-32) Anion Gap 9 mmol/L (5-15) Blood Urea Nitrogen 43 mg/dL (7-18) H Creatinine 2.4 MG/DL (0.55-1.30) H Estimat Glomerular Filtration Rate 27.4 mL/min (>60) Glucose Level 242 MG/DL (74-106) H Hemoglobin A1c 5.0 % (4.3-6.0) Uric Acid 6.1 MG/DL (2.6-7.2) Calcium Level 7.9 MG/DL (8.5-10.1) L Phosphorus Level 3.8 MG/DL (2.5-4.9) Magnesium Level 1.5 MG/DL (1.8-2.4) L Iron Level 36 ug/dL (50-175) L Total Iron Binding Capacity 253 ug/dL (250-450) Percent Iron Saturation 14 % (15-50) L Unsaturated Iron Binding 217 ug/dL (112-346) Ferritin 54 NG/ML (8-388) Total Bilirubin 0.4 MG/DL (0.2-1.0) Gamma Glutamyl Transpeptidase 7 U/L (5-85) Aspartate Amino Transf (AST/SGOT) 17 U/L (15-37) Alanine Aminotransferase (ALT/SGPT) 19 U/L (12-78) Alkaline Phosphatase 95 U/L (46-116) Troponin I 1.296 ng/mL (0.000-0.056) C-Reactive Protein, Quantitative < 0.4 mg/dL (0.00-0.90) Pro-B-Type Natriuretic Peptide 81315 pg/mL (0-125) H Total Protein 6.3 G/DL (6.4-8.2) L Albumin 2.7 G/DL (3.4-5.0) L Globulin 3.6 g/dL Albumin/Globulin Ratio 0.8 (1.0-2.7) L Triglycerides Level 34 MG/DL (30-150) Cholesterol Level 72 MG/DL (< 200) LDL Cholesterol 37 mg/dL (<100) HDL Cholesterol 30 MG/DL (40-60) L Cholesterol/HDL Ratio 2.4 (3.3-4.4) L Vitamin B12 Level 436 PG/ML (193-986) Folate 17.8 NG/ML (8.6-58.9) Microbiology Date/Time Source Procedure Growth Status 2/7/20 00:46 Blood Blood Culture - Preliminary NO GROWTH AFTER 24 HOURS Resulted 10/24/19 00:30 Blood Blood Culture - Preliminary NO GROWTH AFTER 24 HOURS Resulted 10/24/19 03:45 Nasal Nares - Final Complete 10/24/19 03:45 Nasal Nares - Final Complete 10/24/19 02:30 Rectum Received Objective HEAD AND NECK: Showed no JVD. LUNGS: Clear. CARDIOVASCULAR: Shows regular S1 and S2 with no gallop. ABDOMEN: Soft. EXTREMITIES: The patient has left hemiplegia with contraction of left arm. Castillo Bazan MD Oct 25, 2019 14:09
[2019-10-25 16:08] VITALS: BP 143/80
--- NOTE | 2019-10-25 16:48 | General Progress Note ---
Assessment/Plan Problem List: (1) Sepsis ICD Codes: A41.9 - Sepsis, unspecified organism SNOMED: 03124478 (2) Hypoglycemia ICD Codes: E16.2 - Hypoglycemia, unspecified SNOMED: 162556781 (3) Elevated troponin ICD Codes: R79.89 - Other specified abnormal findings of blood chemistry SNOMED: 484472005, 940167640, 186522411 (4) Renal failure (ARF), acute on chronic ICD Codes: N17.9 - Acute kidney failure, unspecified; N18.9 - Chronic kidney disease, unspecified SNOMED: 910875935 Qualifiers: Qualified Codes: N17.9 - Acute kidney failure, unspecified; N18.3 - Chronic kidney disease, stage 3 (moderate) (5) Hypothyroid ICD Codes: E03.9 - Hypothyroidism, unspecified SNOMED: 90031132 (6) HTN (hypertension) ICD Codes: I10 - Essential (primary) hypertension SNOMED: 35350887 (7) Diabetic nephropathy ICD Codes: E11.21 - Type 2 diabetes mellitus with diabetic nephropathy SNOMED: 035724690 (8) Anemia in chronic kidney disease (CKD) ICD Codes: N18.9 - Chronic kidney disease, unspecified; D63.1 - Anemia in chronic kidney disease SNOMED: 160104414 Status: progressing Assessment/Plan: hypoglycemia improved hypothyroid niddm renal failure alert reviewed chart and labs Subjective ROS Limited/Unobtainable: Yes Allergies: Coded Allergies: No Known Allergies (Unverified , 10/07/17) Objective Last 24 Hour Vital Signs Date Time Temp Pulse Resp B/P (MAP) Pulse Ox O2 Delivery O2 Flow Rate FiO2 10/25/19 16:08 97.5 60 16 143/80 (101) 96 10/25/19 16:00 Nasal Cannula 2.0 Nasal Cannula 2.0 10/25/19 16:00 2.0 10/25/19 12:21 147/79 10/25/19 12:00 Nasal Cannula 2.0 Nasal Cannula 2.0 10/25/19 12:00 2.0 10/25/19 11:40 60 10/25/19 11:35 98.8 57 17 147/79 (101) 94 10/25/19 09:10 71 143/75 10/25/19 09:10 71 143/75 10/25/19 08:00 2.0 10/25/19 08:00 98.8 71 16 143/75 (97) 96 10/25/19 08:00 Nasal Cannula 2.0 Nasal Cannula 2.0 10/25/19 07:53 72 10/25/19 04:00 Nasal Cannula 2.0 Nasal Cannula 2.0 10/25/19 04:00 97.8 65 15 140/65 (90) 96 10/25/19 04:00 2.0 10/25/19 04:00 64 10/25/19 00:00 Nasal Cannula 2.0 Nasal Cannula 2.0 10/25/19 00:00 63 10/25/19 00:00 97.7 65 18 129/60 (83) 95 10/25/19 00:00 2.0 10/25/19 00:00 Nasal Cannula 2.0 Nasal Cannula 2.0 10/24/19 22:00 Nasal Cannula 2.0 Nasal Cannula 2.0 10/24/19 21:30 67 136/68 10/24/19 20:00 96.9 65 15 136/68 (90) 95 10/24/19 20:00 69 10/24/19 20:00 Nasal Cannula 2.0 Nasal Cannula 2.0 10/24/19 20:00 2.0 Intake and Output 10/24/19 10/25/19 19:00 07:00 Intake Total 871.25 ml 708.75 ml Output Total 1000 ml 800 ml Balance -128.75 ml -91.25 ml Intake Oral 320 ml IV Total 871.25 ml 388.75 ml Output Urine Total 1000 ml 800 ml # Bowel Movements 4 4 Laboratory Tests 10/25/19 04:00: White Blood Count 7.9, Red Blood Count 2.62L, Hemoglobin 8.5L, Hematocrit 25.7L , Mean Corpuscular Volume 98, Mean Corpuscular Hemoglobin 32.3H, Mean Corpuscular Hemoglobin Concent 33.0, Red Cell Distribution Width 13.3, Platelet Count 208, Mean Platelet Volume 6.9, Neutrophils (%) (Auto) 61.6, Lymphocytes (% ) (Auto) 21.8, Monocytes (%) (Auto) 10.4H, Eosinophils (%) (Auto) 4.9H, Basophils (%) (Auto) 1.3, Sodium Level 140, Potassium Level 4.7, Chloride Level 108H, Carbon Dioxide Level 23, Anion Gap 9, Blood Urea Nitrogen 43H, Creatinine 2.4H, Estimat Glomerular Filtration Rate 27.4, Glucose Level 242H, Hemoglobin A1c 5.0, Uric Acid 6.1, Calcium Level 7.9L, Phosphorus Level 3.8, Magnesium Level 1.5L, Iron Level 36L, Total Iron Binding Capacity 253, Percent Iron Saturation 14L, Unsaturated Iron Binding 217, Ferritin 54, Total Bilirubin 0.4, Gamma Glutamyl Transpeptidase 7, Aspartate Amino Transf (AST/SGOT) 17, Alanine Aminotransferase (ALT/SGPT) 19, Alkaline Phosphatase 95, Troponin I 1.296H, C- Reactive Protein, Quantitative < 0.4, Pro-B-Type Natriuretic Peptide 92940N, Total Protein 6.3L, Albumin 2.7L, Globulin 3.6, Albumin/Globulin Ratio 0.8L, Triglycerides Level 34, Cholesterol Level 72, LDL Cholesterol 37, HDL Cholesterol 30L, Cholesterol/HDL Ratio 2.4L, Vitamin B12 Level 436, Folate 17.8 Height (Feet): 5 Height (Inches): 10.00 Weight (Pounds): 228 Neck: supple Respiratory/Chest: lungs clear Abdomen: soft Oni Schilling MD Oct 25, 2019 16:48
--- NOTE | 2019-10-25 18:00 | NUR ---
NURSE NOTES: Left IV was leaking and removed. Inserted new IVs on right hand and wrist. Pt tolerated well. Small amount of nonbleeding noted. Turned and repositioned pt. Will continue to monitor.
--- NOTE | 2019-10-25 18:59 | NUR ---
CASE MANAGEMENT: REVIEW 10/25/2019 SI: HYPOGLYCEMIA. AC/CHR RENAL FAILURE. ELEVATED TROPONIN. T 97.5 HR 60 RR 16 B/P 143/80 SATS 96% ON 2L/NC LABS: CL 108 BUN 43 CR 2.4 GLU 242 CA 7.9 MG 1.5 TROPONIN 1.296 BNP 73352 IS;IVF D5W DEXTROSE IV IVF NS ASPIRIN HYDROCORTISONE IV SDU STATUS DCP:FROM [place]
--- NOTE | 2019-10-25 19:22 | NUR ---
HAND-OFF: Report given to Lashonda Nieto RN.
--- NOTE | 2019-10-25 19:23 | NUR ---
NURSE NOTES: received pt from Isaias BLAKE., pt is awake and AOx2-3 at this moment. pt states no pain. no SOB noted. pt is on 2L of NC and O2sat is at 94%. Right FA 20G, Right HAnd 22G , and right wrist 22G are no s/s of infection or infiltration, and intact, clean, and patent. Kamara cath is draining well with gravity, intact, and clean. bed at the lowest position, alarmed, and locked. call light within reach. will continue to monitor pt with plan of care.
[2019-10-25 20:00] VITALS: BP 134/76
[2019-10-25] MEDS: Atorvastatin 80mg tab ORAL SCH (21:22)
[2019-10-25] MEDS: Tamsulosin 0.4mg cap ORAL SCH (21:22)
[2019-10-26] VITALS: BP 140/77
--- NOTE | 2019-10-26 02:00 | NUR ---
NURSE NOTES: changed whole bed, applied new gown, and assessed sacral and heel. skin intact. blanchable redness noted on bilateral heels. optifoam protection applied on sacral and bilateral heels. pt states no pain at this moment. no SOB noted. call light within reach. bed at the lowest position.
[2019-10-26 04:00] VITALS: BP 135/70
[2019-10-26 05:49] LABS: BASOPHILS % (AUTO) 1.3 % (0.0-2.0); EOSINOPHILS % (AUTO) 7.1 % (0.0-3.0); HEMATOCRIT 26.5 % (42.0-52.0); HEMOGLOBIN 8.8 G/DL (14.2-18.0); LYMPHOCYTES % (AUTO) 14.7 % (20.0-45.0); MEAN CORPUSCULAR VOLUME 97 FL (80-99); MONOCYTES % (AUTO) 10.5 % (1.0-10.0); NEUTROPHILS % (AUTO) 66.4 % (45.0-75.0); PLATELET COUNT 216 K/UL (150-450); RED BLOOD COUNT 2.73 M/UL (4.70-6.10); RED CELL DISTRIBUTION WIDTH 13.1 % (11.6-14.8); WHITE BLOOD COUNT 6.9 K/UL (4.8-10.8)
[2019-10-26 06:49] LABS: ALANINE AMINOTRANSFERASE 17 U/L (12-78); ALBUMIN 3.1 G/DL (3.4-5.0); ALBUMIN/GLOBULIN RATIO 0.8 (1.0-2.7); ALKALINE PHOSPHATASE 112 U/L (46-116); ANION GAP 12 mmol/L (5-15); ASPARTATE AMINO TRANSFERASE 19 U/L (15-37); BILIRUBIN,TOTAL 0.5 MG/DL (0.2-1.0); BLOOD UREA NITROGEN 40 mg/dL (7-18); CALCIUM 8.6 MG/DL (8.5-10.1); CARBON DIOXIDE 21 MMOL/L (21-32); CHLORIDE 110 MMOL/L (98-107); CREATININE 2.4 MG/DL (0.55-1.30); PHOSPHORUS 3.2 MG/DL (2.5-4.9); POTASSIUM 4.3 MMOL/L (3.5-5.1); SODIUM 143 MMOL/L (136-145)
--- NOTE | 2019-10-26 07:17 | NUR ---
HAND-OFF: Report given to Kelly Carreon RN., pt is stable condition.
--- NOTE | 2019-10-26 07:20 | NUR ---
NURSE NOTES: Report received from Ebony Nieto RN.Pt awake,alert HOB elevated in fowlers position waiting to eat breakfast, on 2 L NC,denies any c/o pain or discomfort,SR on the monitor,Kamara cath draining yellow urine,skin warm and dry IV sites heplock x3 intact, RH,RW and RFA,SR up x2 call murillo at bedside,bed lock in lowest position,will continue with plans of care.
[2019-10-26 08:00] VITALS: BP 146/66
[2019-10-26] MEDS: Docusate 100mg cap ORAL SCH ×2 (09:00→17:32)
--- NOTE | 2019-10-26 09:00 | NUR ---
NURSE NOTES: Due medic Plavix not given,pt with nasal bleeding,and Colace hold ,pt with diarrhea stools during the night.
--- NOTE | 2019-10-26 09:37 | General Progress Note ---
Assessment/Plan Problem List: (1) Hypothyroid ICD Codes: E03.9 - Hypothyroidism, unspecified SNOMED: 97868259 (2) HTN (hypertension) ICD Codes: I10 - Essential (primary) hypertension SNOMED: 93674237 (3) Diabetic nephropathy ICD Codes: E11.21 - Type 2 diabetes mellitus with diabetic nephropathy SNOMED: 941545388 (4) Hypoglycemia ICD Codes: E16.2 - Hypoglycemia, unspecified SNOMED: 361756924 (5) Renal failure (ARF), acute on chronic ICD Codes: N17.9 - Acute kidney failure, unspecified; N18.9 - Chronic kidney disease, unspecified SNOMED: 900435736 Qualifiers: Qualified Codes: N17.9 - Acute kidney failure, unspecified; N18.3 - Chronic kidney disease, stage 3 (moderate) Status: progressing Assessment/Plan: continue LT4 150 mcg daily continue glucose monitoring hypoglycemia protocol Subjective Allergies: Coded Allergies: No Known Allergies (Unverified , 10/07/17) All Systems: reviewed and negative except above Subjective events noted interval notes reviewed glucose values are stable without hypoglycemia so far Item Value Date Time Bedside Blood Glucose 87 mg/dl 10/26/19 0400 Bedside Blood Glucose 115 mg/dl 10/26/19 0000 Bedside Blood Glucose 132 mg/dl H 10/25/19 2000 Bedside Blood Glucose 173 mg/dl H 10/25/19 1554 Bedside Blood Glucose 204 mg/dl H 10/25/19 1200 Bedside Blood Glucose 230 mg/dl H 10/25/19 0800 Bedside Blood Glucose 212 mg/dl H 10/25/19 0400 Objective Last 24 Hour Vital Signs Date Time Temp Pulse Resp B/P (MAP) Pulse Ox O2 Delivery O2 Flow Rate FiO2 10/26/19 08:00 99.0 71 20 146/66 (92) 100 10/26/19 04:00 98.5 62 16 135/70 (91) 97 10/26/19 04:00 2.0 10/26/19 04:00 Nasal Cannula 2.0 Nasal Cannula 2.0 10/26/19 04:00 70 10/26/19 00:00 98.8 65 16 140/77 (98) 95 10/26/19 00:00 Nasal Cannula 2.0 Nasal Cannula 2.0 10/26/19 00:00 2.0 10/25/19 23:53 60 10/25/19 21:24 57 134/76 10/25/19 21:00 57 134/76 10/25/19 20:00 Nasal Cannula 2.0 Nasal Cannula 2.0 10/25/19 20:00 98.0 57 16 134/76 (95) 97 10/25/19 20:00 2.0 10/25/19 19:44 72 10/25/19 19:37 65 10/25/19 16:08 97.5 60 16 143/80 (101) 96 10/25/19 16:00 Nasal Cannula 2.0 Nasal Cannula 2.0 10/25/19 16:00 2.0 10/25/19 15:55 60 10/25/19 12:21 147/79 10/25/19 12:00 Nasal Cannula 2.0 Nasal Cannula 2.0 10/25/19 12:00 2.0 10/25/19 11:40 60 10/25/19 11:35 98.8 57 17 147/79 (101) 94 Intake and Output 10/25/19 10/26/19 19:00 07:00 Intake Total 320 ml 300 ml Output Total 1450 ml 1300 ml Balance -1130 ml -1000 ml Intake Oral 300 ml IV Total 320 ml Output Urine Total 1450 ml 1300 ml # Bowel Movements 4 Laboratory Tests 10/26/19 04:15: White Blood Count 6.9, Red Blood Count 2.73L, Hemoglobin 8.8L, Hematocrit 26.5L , Mean Corpuscular Volume 97, Mean Corpuscular Hemoglobin 32.1H, Mean Corpuscular Hemoglobin Concent 33.1, Red Cell Distribution Width 13.1, Platelet Count 216, Mean Platelet Volume 7.0, Neutrophils (%) (Auto) 66.4, Lymphocytes (% ) (Auto) 14.7L, Monocytes (%) (Auto) 10.5H, Eosinophils (%) (Auto) 7.1H, Basophils (%) (Auto) 1.3, Sodium Level 143, Potassium Level 4.3, Chloride Level 110H, Carbon Dioxide Level 21, Anion Gap 12, Blood Urea Nitrogen 40H, Creatinine 2.4H, Estimat Glomerular Filtration Rate 27.4, Glucose Level 95#, Uric Acid 6.3, Calcium Level 8.6, Phosphorus Level 3.2, Magnesium Level 1.8, Total Bilirubin 0.5, Aspartate Amino Transf (AST/SGOT) 19, Alanine Aminotransferase (ALT/SGPT) 17, Alkaline Phosphatase 112, Total Protein 6.9, Albumin 3.1L, Globulin 3.8, Albumin/Globulin Ratio 0.8L Height (Feet): 5 Height (Inches): 10.00 Weight (Pounds): 228 General Appearance: no apparent distress Neck: normal alignment Cardiovascular: normal rate Respiratory/Chest: lungs clear Abdomen: normal bowel sounds Objective Current Medications Medications (Trade) Dose Ordered Sig/Leon Route PRN Reason Start Time Stop Time Status Last Admin Dose Admin Acetaminophen (Tylenol) 500 mg Q4H PRN ORAL Mild Pain/Temp > 100.5 10/24/19 04:30 11/23/19 04:29 Amlodipine Besylate (Norvasc) 5 mg Q12HR ORAL 10/25/19 21:00 11/24/19 20:59 10/25/19 21:24 Aspirin (Ecotrin) 81 mg DAILY ORAL 10/25/19 09:00 11/24/19 08:59 10/25/19 09:09 Atorvastatin Calcium (Lipitor) 80 mg BEDTIME ORAL 10/24/19 21:00 11/23/19 20:59 10/25/19 21:22 Clopidogrel Bisulfate (Plavix) 75 mg DAILY ORAL 10/25/19 09:00 11/24/19 08:59 10/25/19 09:09 Dextrose (Dextrose 50%) 25 ml Q30M PRN IV Hypoglycemia 10/24/19 05:15 11/23/19 05:14 Dextrose (Dextrose 50%) 50 ml Q30M PRN IV Hypoglycemia 10/24/19 05:15 11/23/19 05:14 Docusate Sodium (Colace) 100 mg TWICE A DAY ORAL 10/24/19 18:00 11/23/19 17:59 Finasteride (Proscar) 5 mg DAILY ORAL 10/25/19 09:00 11/24/19 08:59 10/25/19 09:09 Furosemide (Lasix) 40 mg DAILY ORAL 10/25/19 10:00 11/24/19 09:59 10/25/19 10:11 Levothyroxine Sodium (Synthroid) 150 mcg DAILY@0630 ORAL 10/24/19 06:30 11/23/19 06:29 10/26/19 05:51 Metoprolol Tartrate (Lopressor) 25 mg Q12HR ORAL 10/24/19 21:00 11/23/19 20:59 10/25/19 09:10 Nitroglycerin (Ntg) 1 patch Q24H TDERMAL 10/24/19 12:30 11/23/19 12:29 10/25/19 12:21 Pantoprazole (Protonix) 40 mg EVERY 12 HOURS ORAL 10/25/19 21:00 11/24/19 20:59 10/25/19 21:22 Tamsulosin HCl (Flomax) 0.4 mg BEDTIME ORAL 10/24/19 21:00 11/23/19 20:59 10/25/19 21:22 Aureliano Estrada MD Oct 26, 2019 09:37
[2019-10-26] MEDS: Aspirin EC 81mg tab ORAL SCH (09:48)
[2019-10-26] MEDS: Furosemide 40mg tab ORAL SCH (09:48)
--- NOTE | 2019-10-26 11:37 | Pulmonology Progress Note ---
Assessment/Plan Assessment/Plan IMPRESSION: 1. Mild pulmonary vascular congestion. 2. Hypertension. 3. Diabetes mellitus. 4. Previous CVA. 5. Hypoglycemia. 6. Hypoxemia. DISCUSSION: Continue low flow O2 Continue diuresis Janes Cox M.D. Subjective Interval Events: Nione new Constitutional: Reports: no symptoms HEENT: Repors: no symptoms Respiratory: Reports: no symptoms Cardiovascular: Reports: no symptoms Allergies: Coded Allergies: No Known Allergies (Unverified , 10/07/17) Objective Last 24 Hour Vital Signs Date Time Temp Pulse Resp B/P (MAP) Pulse Ox O2 Delivery O2 Flow Rate FiO2 10/26/19 09:49 71 146/66 10/26/19 09:48 71 146/66 10/26/19 08:00 Nasal Cannula 2.0 Nasal Cannula 2.0 10/26/19 08:00 99.0 71 20 146/66 (92) 100 10/26/19 04:00 98.5 62 16 135/70 (91) 97 10/26/19 04:00 2.0 10/26/19 04:00 Nasal Cannula 2.0 Nasal Cannula 2.0 10/26/19 04:00 70 10/26/19 00:00 98.8 65 16 140/77 (98) 95 10/26/19 00:00 Nasal Cannula 2.0 Nasal Cannula 2.0 10/26/19 00:00 2.0 10/25/19 23:53 60 10/25/19 21:24 57 134/76 10/25/19 21:00 57 134/76 10/25/19 20:00 Nasal Cannula 2.0 Nasal Cannula 2.0 10/25/19 20:00 98.0 57 16 134/76 (95) 97 10/25/19 20:00 2.0 10/25/19 19:44 72 10/25/19 19:37 65 10/25/19 16:08 97.5 60 16 143/80 (101) 96 10/25/19 16:00 Nasal Cannula 2.0 Nasal Cannula 2.0 10/25/19 16:00 2.0 10/25/19 15:55 60 2/8/20 12:21 147/79 10/25/19 12:00 Nasal Cannula 2.0 Nasal Cannula 2.0 10/25/19 12:00 2.0 10/25/19 11:40 60 Intake and Output 10/25/19 10/26/19 19:00 07:00 Intake Total 320 ml 300 ml Output Total 1450 ml 1300 ml Balance -1130 ml -1000 ml Intake Oral 300 ml IV Total 320 ml Output Urine Total 1450 ml 1300 ml # Bowel Movements 4 General Appearance: no acute distress HEENT: normocephalic Respiratory/Chest: chest wall non-tender Cardiovascular: normal peripheral pulses, normal rate Abdomen: normal bowel sounds Microbiology Date/Time Source Procedure Growth Status 10/24/19 00:46 Blood Blood Culture - Preliminary NO GROWTH AFTER 48 HOURS Resulted 10/24/19 00:30 Blood Blood Culture - Preliminary NO GROWTH AFTER 48 HOURS Resulted 10/24/19 03:45 Nasal Nares - Final Complete 10/24/19 03:45 Nasal Nares - Final Complete 10/24/19 02:30 Rectum - Final NO CARBAPENEM-RESISTANT ENTEROBACTERI... Complete 10/24/19 02:30 Rectum VRE Culture - Final Enterococcus Faecalis - Vre Complete Laboratory Tests 10/26/19 04:15: White Blood Count 6.9, Red Blood Count 2.73L, Hemoglobin 8.8L, Hematocrit 26.5L , Mean Corpuscular Volume 97, Mean Corpuscular Hemoglobin 32.1H, Mean Corpuscular Hemoglobin Concent 33.1, Red Cell Distribution Width 13.1, Platelet Count 216, Mean Platelet Volume 7.0, Neutrophils (%) (Auto) 66.4, Lymphocytes (% ) (Auto) 14.7L, Monocytes (%) (Auto) 10.5H, Eosinophils (%) (Auto) 7.1H, Basophils (%) (Auto) 1.3, Sodium Level 143, Potassium Level 4.3, Chloride Level 110H, Carbon Dioxide Level 21, Anion Gap 12, Blood Urea Nitrogen 40H, Creatinine 2.4H, Estimat Glomerular Filtration Rate 27.4, Glucose Level 95#, Uric Acid 6.3, Calcium Level 8.6, Phosphorus Level 3.2, Magnesium Level 1.8, Total Bilirubin 0.5, Aspartate Amino Transf (AST/SGOT) 19, Alanine Aminotransferase (ALT/SGPT) 17, Alkaline Phosphatase 112, Total Protein 6.9, Albumin 3.1L, Globulin 3.8, Albumin/Globulin Ratio 0.8L Current Medications Medications (Trade) Dose Ordered Sig/Leon Route PRN Reason Start Time Stop Time Status Last Admin Dose Admin Acetaminophen (Tylenol) 500 mg Q4H PRN ORAL Mild Pain/Temp > 100.5 10/24/19 04:30 11/23/19 04:29 Amlodipine Besylate (Norvasc) 5 mg Q12HR ORAL 10/25/19 21:00 11/24/19 20:59 10/26/19 09:49 Aspirin (Ecotrin) 81 mg DAILY ORAL 10/25/19 09:00 11/24/19 08:59 10/26/19 09:48 Atorvastatin Calcium (Lipitor) 80 mg BEDTIME ORAL 10/24/19 21:00 11/23/19 20:59 10/25/19 21:22 Clopidogrel Bisulfate (Plavix) 75 mg DAILY ORAL 10/25/19 09:00 11/24/19 08:59 10/25/19 09:09 Dextrose (Dextrose 50%) 25 ml Q30M PRN IV Hypoglycemia 10/24/19 05:15 11/23/19 05:14 Dextrose (Dextrose 50%) 50 ml Q30M PRN IV Hypoglycemia 10/24/19 05:15 11/23/19 05:14 Docusate Sodium (Colace) 100 mg TWICE A DAY ORAL 10/24/19 18:00 11/23/19 17:59 Finasteride (Proscar) 5 mg DAILY ORAL 10/25/19 09:00 11/24/19 08:59 10/26/19 09:48 Furosemide (Lasix) 40 mg DAILY ORAL 10/25/19 10:00 11/24/19 09:59 10/26/19 09:48 Levothyroxine Sodium (Synthroid) 150 mcg DAILY@0630 ORAL 10/24/19 06:30 11/23/19 06:29 10/26/19 05:51 Metoprolol Tartrate (Lopressor) 25 mg Q12HR ORAL 10/24/19 21:00 11/23/19 20:59 10/26/19 09:48 Nitroglycerin (Ntg) 1 patch Q24H TDERMAL 10/24/19 12:30 11/23/19 12:29 10/25/19 12:21 Pantoprazole (Protonix) 40 mg EVERY 12 HOURS ORAL 10/25/19 21:00 11/24/19 20:59 10/26/19 09:48 Tamsulosin HCl (Flomax) 0.4 mg BEDTIME ORAL 10/24/19 21:00 11/23/19 20:59 10/25/19 21:22 Janes Cox MD Oct 26, 2019 11:37
[2019-10-26 12:00] VITALS: BP 145/73
--- NOTE | 2019-10-26 12:21 | Nephrology Progress Note ---
Assessment/Plan Problem List: (1) Renal failure (ARF), acute on chronic (2) Elevated troponin (3) Hypoglycemia (4) Hypothyroid (5) HTN (hypertension) (6) Diabetic nephropathy (7) Anemia in chronic kidney disease (CKD) Assessment Urinary retention Renal failure (ARF), acute on chronic Anemia: s/p GI Bleed on anticoagulation h/o Hypertension Elevated troponin h/o Hypothyroid DM- Hypoglycemia on presentation h/o UTI Plan DC Kamara BP management IV Iron watch HR 2D Echo NOTED Kidney MARCO A NOTED Avoid nephrotoxics antibiotics Per orders / per consultants Subjective ROS Limited/Unobtainable: No Constitutional: Reports: malaise Objective Objective Last 24 Hour Vital Signs Date Time Temp Pulse Resp B/P (MAP) Pulse Ox O2 Delivery O2 Flow Rate FiO2 10/26/19 09:49 71 146/66 10/26/19 09:48 71 146/66 10/26/19 08:00 Nasal Cannula 2.0 Nasal Cannula 2.0 10/26/19 08:00 2.0 10/26/19 08:00 99.0 71 20 146/66 (92) 100 10/26/19 08:00 70 10/26/19 04:00 98.5 62 16 135/70 (91) 97 10/26/19 04:00 2.0 10/26/19 04:00 Nasal Cannula 2.0 Nasal Cannula 2.0 10/26/19 04:00 70 10/26/19 00:00 98.8 65 16 140/77 (98) 95 10/26/19 00:00 Nasal Cannula 2.0 Nasal Cannula 2.0 10/26/19 00:00 2.0 10/25/19 23:53 60 10/25/19 21:24 57 134/76 10/25/19 21:00 57 134/76 10/25/19 20:00 Nasal Cannula 2.0 Nasal Cannula 2.0 10/25/19 20:00 98.0 57 16 134/76 (95) 97 10/25/19 20:00 2.0 10/25/19 19:44 72 10/25/19 19:37 65 10/25/19 16:08 97.5 60 16 143/80 (101) 96 10/25/19 16:00 Nasal Cannula 2.0 Nasal Cannula 2.0 10/25/19 16:00 2.0 10/25/19 15:55 60 10/25/19 12:21 147/79 Intake and Output 10/25/19 10/26/19 19:00 07:00 Intake Total 320 ml 300 ml Output Total 1450 ml 1300 ml Balance -1130 ml -1000 ml Intake Oral 300 ml IV Total 320 ml Output Urine Total 1450 ml 1300 ml # Bowel Movements 4 Laboratory Tests 10/26/19 04:15: White Blood Count 6.9, Red Blood Count 2.73L, Hemoglobin 8.8L, Hematocrit 26.5L , Mean Corpuscular Volume 97, Mean Corpuscular Hemoglobin 32.1H, Mean Corpuscular Hemoglobin Concent 33.1, Red Cell Distribution Width 13.1, Platelet Count 216, Mean Platelet Volume 7.0, Neutrophils (%) (Auto) 66.4, Lymphocytes (% ) (Auto) 14.7L, Monocytes (%) (Auto) 10.5H, Eosinophils (%) (Auto) 7.1H, Basophils (%) (Auto) 1.3, Sodium Level 143, Potassium Level 4.3, Chloride Level 110H, Carbon Dioxide Level 21, Anion Gap 12, Blood Urea Nitrogen 40H, Creatinine 2.4H, Estimat Glomerular Filtration Rate 27.4, Glucose Level 95#, Uric Acid 6.3, Calcium Level 8.6, Phosphorus Level 3.2, Magnesium Level 1.8, Total Bilirubin 0.5, Aspartate Amino Transf (AST/SGOT) 19, Alanine Aminotransferase (ALT/SGPT) 17, Alkaline Phosphatase 112, Total Protein 6.9, Albumin 3.1L, Globulin 3.8, Albumin/Globulin Ratio 0.8L Height (Feet): 5 Height (Inches): 10.00 Weight (Pounds): 228 General Appearance: no apparent distress Objective no change Rafa Farr MD Oct 26, 2019 12:21
--- NOTE | 2019-10-26 12:30 | NUR ---
NURSE NOTES: Dr Farr at bedside,ordered to discontinue Kamara cath.
[2019-10-26] MEDS: Nitroglycerin Patch 0.4mg TDERMAL SCH (12:49)
--- NOTE | 2019-10-26 13:05 | Consultation ---
History of Present Illness General Date patient seen: Oct 26, 2019 Present Illness Allergies: Coded Allergies: No Known Allergies (Unverified , 10/07/17) Medication History Scheduled Amlodipine Besylate* (Amlodipine Besylate*), 5 MG ORAL DAILY, (Reported) Ascorbic Acid* (Vitamin C*), 500 MG ORAL DAILY, (Reported) Aspirin* (Aspir 81*), 81 MG ORAL DAILY, (Reported) Atorvastatin Calcium* (Atorvastatin Calcium*), 80 MG ORAL BEDTIME, (Reported) Clonidine Hcl* (Catapres*), 0.1 MG ORAL EVERY 6 HOURS, (Reported) Clopidogrel Bisulfate* (Plavix*), 75 MG ORAL DAILY, (Reported) Cranberry (Cranberry), 400 MG PO DAILY, (Reported) Docusate Sodium* (Docusate Sodium*), 100 MG ORAL TWICE A DAY, (Reported) Ergocalciferol (Vitamin D2)* (Vitamin D*), 50,000 UNIT ORAL ONCE A WEEK, ( Reported) Finasteride* (Proscar*), 5 MG ORAL DAILY, (Reported) Folic Acid* (Folic Acid*), 1 MG ORAL DAILY, (Reported) Glimepiride (Amaryl), 2 MG ORAL BEFORE BREAKFAST, (Reported) Insulin Detemir (Levemir), 0 SUBQ BEDTIME, (Reported) Levothyroxine Sodium* (Levothyroxine Sodium*), 200 MCG ORAL DAILY, (Reported) Losartan Potassium* (Losartan Potassium*), 50 MG ORAL DAILY, (Reported) Multivitamins* (Multivitamins*), 1 TAB ORAL DAILY, (Reported) Tamsulosin Hcl (Tamsulosin Hcl*), 0.4 MG ORAL BEDTIME, (Reported) Vit B Cmplx 3/Fa/Vit C/Biotin (Nephro-Kym Rx Tablet), 1 EACH PO DAILY, ( Reported) Warfarin Sod* (Coumadin*), 10 MG ORAL DAILY, (Reported) Scheduled PRN Acetaminophen* (Acetaminophen 325MG Tablet*), 650 MG ORAL Q6H PRN for Pain Scale (3-5), (Reported) Ondansetron* (Zofran*), 4 MG ORAL Q6H PRN for Nausea & Vomiting, (Reported) Polyethylene Glycol 3350* (Miralax*), 17 GM ORAL DAILY PRN for Constipation, ( Reported) Miscellaneous Medications Diclofenac Sodium (Solaraze), 100 GM TP, (Reported) Glucagon,Human Recombinant (Glucagon Emergency Kit), 1 MG IJ, (Reported) Patient History Healthcare decision maker Resuscitation status Full Code Advanced Directive on File No Physical Exam Last 24 Hour Vital Signs Date Time Temp Pulse Resp B/P (MAP) Pulse Ox O2 Delivery O2 Flow Rate FiO2 10/26/19 12:49 145/73 10/26/19 12:00 61 10/26/19 12:00 Nasal Cannula 2.0 Nasal Cannula 2.0 10/26/19 12:00 99.0 70 20 145/73 (97) 100 10/26/19 09:49 71 146/66 10/26/19 09:48 71 146/66 10/26/19 08:00 Nasal Cannula 2.0 Nasal Cannula 2.0 10/26/19 08:00 2.0 10/26/19 08:00 99.0 71 20 146/66 (92) 100 10/26/19 08:00 70 10/26/19 04:00 98.5 62 16 135/70 (91) 97 10/26/19 04:00 2.0 10/26/19 04:00 Nasal Cannula 2.0 Nasal Cannula 2.0 10/26/19 04:00 70 10/26/19 00:00 98.8 65 16 140/77 (98) 95 10/26/19 00:00 Nasal Cannula 2.0 Nasal Cannula 2.0 10/26/19 00:00 2.0 10/25/19 23:53 60 10/25/19 21:24 57 134/76 10/25/19 21:00 57 134/76 10/25/19 20:00 Nasal Cannula 2.0 Nasal Cannula 2.0 10/25/19 20:00 98.0 57 16 134/76 (95) 97 10/25/19 20:00 2.0 10/25/19 19:44 72 10/25/19 19:37 65 10/25/19 16:08 97.5 60 16 143/80 (101) 96 10/25/19 16:00 Nasal Cannula 2.0 Nasal Cannula 2.0 10/25/19 16:00 2.0 10/25/19 15:55 60 Intake and Output 10/25/19 10/26/19 19:00 07:00 Intake Total 320 ml 300 ml Output Total 1450 ml 1300 ml Balance -1130 ml -1000 ml Intake Oral 300 ml IV Total 320 ml Output Urine Total 1450 ml 1300 ml # Bowel Movements 4 Laboratory Tests Test 10/26/19 04:15 White Blood Count 6.9 K/UL (4.8-10.8) Red Blood Count 2.73 M/UL (4.70-6.10) L Hemoglobin 8.8 G/DL (14.2-18.0) L Hematocrit 26.5 % (42.0-52.0) L Mean Corpuscular Volume 97 FL (80-99) Mean Corpuscular Hemoglobin 32.1 PG (27.0-31.0) H Mean Corpuscular Hemoglobin Concent 33.1 G/DL (32.0-36.0) Red Cell Distribution Width 13.1 % (11.6-14.8) Platelet Count 216 K/UL (150-450) Mean Platelet Volume 7.0 FL (6.5-10.1) Neutrophils (%) (Auto) 66.4 % (45.0-75.0) Lymphocytes (%) (Auto) 14.7 % (20.0-45.0) L Monocytes (%) (Auto) 10.5 % (1.0-10.0) H Eosinophils (%) (Auto) 7.1 % (0.0-3.0) H Basophils (%) (Auto) 1.3 % (0.0-2.0) Sodium Level 143 MMOL/L (136-145) Potassium Level 4.3 MMOL/L (3.5-5.1) Chloride Level 110 MMOL/L (98-107) H Carbon Dioxide Level 21 MMOL/L (21-32) Anion Gap 12 mmol/L (5-15) Blood Urea Nitrogen 40 mg/dL (7-18) H Creatinine 2.4 MG/DL (0.55-1.30) H Estimat Glomerular Filtration Rate 27.4 mL/min (>60) Glucose Level 95 MG/DL (74-106) # Uric Acid 6.3 MG/DL (2.6-7.2) Calcium Level 8.6 MG/DL (8.5-10.1) Phosphorus Level 3.2 MG/DL (2.5-4.9) Magnesium Level 1.8 MG/DL (1.8-2.4) Total Bilirubin 0.5 MG/DL (0.2-1.0) Aspartate Amino Transf (AST/SGOT) 19 U/L (15-37) Alanine Aminotransferase (ALT/SGPT) 17 U/L (12-78) Alkaline Phosphatase 112 U/L (46-116) Total Protein 6.9 G/DL (6.4-8.2) Albumin 3.1 G/DL (3.4-5.0) L Globulin 3.8 g/dL Albumin/Globulin Ratio 0.8 (1.0-2.7) L Height (Feet): 5 Height (Inches): 10.00 Weight (Pounds): 228 Medications Current Medications Medications (Trade) Dose Ordered Sig/Leon Route PRN Reason Start Time Stop Time Status Last Admin Dose Admin Acetaminophen (Tylenol) 500 mg Q4H PRN ORAL Mild Pain/Temp > 100.5 10/24/19 04:30 11/23/19 04:29 Amlodipine Besylate (Norvasc) 5 mg Q12HR ORAL 10/25/19 21:00 11/24/19 20:59 10/26/19 09:49 Aspirin (Ecotrin) 81 mg DAILY ORAL 10/25/19 09:00 11/24/19 08:59 10/26/19 09:48 Atorvastatin Calcium (Lipitor) 80 mg BEDTIME ORAL 10/24/19 21:00 11/23/19 20:59 10/25/19 21:22 Clopidogrel Bisulfate (Plavix) 75 mg DAILY ORAL 10/25/19 09:00 11/24/19 08:59 10/25/19 09:09 Dextrose (Dextrose 50%) 25 ml Q30M PRN IV Hypoglycemia 10/24/19 05:15 11/23/19 05:14 Dextrose (Dextrose 50%) 50 ml Q30M PRN IV Hypoglycemia 10/24/19 05:15 11/23/19 05:14 Docusate Sodium (Colace) 100 mg TWICE A DAY ORAL 10/24/19 18:00 11/23/19 17:59 Finasteride (Proscar) 5 mg DAILY ORAL 10/25/19 09:00 11/24/19 08:59 10/26/19 09:48 Furosemide (Lasix) 40 mg DAILY ORAL 10/25/19 10:00 11/24/19 09:59 10/26/19 09:48 Levothyroxine Sodium (Synthroid) 150 mcg DAILY@0630 ORAL 10/24/19 06:30 11/23/19 06:29 10/26/19 05:51 Metoprolol Tartrate (Lopressor) 25 mg Q12HR ORAL 10/24/19 21:00 11/23/19 20:59 10/26/19 09:48 Nitroglycerin (Ntg) 1 patch Q24H TDERMAL 10/24/19 12:30 11/23/19 12:29 10/26/19 12:49 Pantoprazole (Protonix) 40 mg EVERY 12 HOURS ORAL 10/25/19 21:00 11/24/19 20:59 10/26/19 09:48 Tamsulosin HCl (Flomax) 0.4 mg BID ORAL 10/26/19 18:00 11/23/19 20:59 Assessment/Plan Assessment/Plan: (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
--- NOTE | 2019-10-26 13:16 | General Progress Note ---
Assessment/Plan Problem List: (1) Sepsis ICD Codes: A41.9 - Sepsis, unspecified organism SNOMED: 10547504 (2) Hypoglycemia ICD Codes: E16.2 - Hypoglycemia, unspecified SNOMED: 219001084 (3) Elevated troponin ICD Codes: R79.89 - Other specified abnormal findings of blood chemistry SNOMED: 628438231, 767345404, 921395371 (4) Renal failure (ARF), acute on chronic ICD Codes: N17.9 - Acute kidney failure, unspecified; N18.9 - Chronic kidney disease, unspecified SNOMED: 256648067 Qualifiers: Qualified Codes: N17.9 - Acute kidney failure, unspecified; N18.3 - Chronic kidney disease, stage 3 (moderate) (5) Hypothyroid ICD Codes: E03.9 - Hypothyroidism, unspecified SNOMED: 35590839 (6) HTN (hypertension) ICD Codes: I10 - Essential (primary) hypertension SNOMED: 29604720 (7) Diabetic nephropathy ICD Codes: E11.21 - Type 2 diabetes mellitus with diabetic nephropathy SNOMED: 516476665 (8) Anemia in chronic kidney disease (CKD) ICD Codes: N18.9 - Chronic kidney disease, unspecified; D63.1 - Anemia in chronic kidney disease SNOMED: 425816475 Status: progressing Assessment/Plan: hypoglycemia improved hypothyroid niddm azotemia improving afebrile reviewed chart and labs sepsis Subjective ROS Limited/Unobtainable: Yes Allergies: Coded Allergies: No Known Allergies (Unverified , 10/07/17) Objective Last 24 Hour Vital Signs Date Time Temp Pulse Resp B/P (MAP) Pulse Ox O2 Delivery O2 Flow Rate FiO2 10/26/19 12:49 145/73 10/26/19 12:00 61 10/26/19 12:00 Nasal Cannula 2.0 Nasal Cannula 2.0 10/26/19 12:00 99.0 70 20 145/73 (97) 100 10/26/19 09:49 71 146/66 10/26/19 09:48 71 146/66 10/26/19 08:00 Nasal Cannula 2.0 Nasal Cannula 2.0 10/26/19 08:00 2.0 10/26/19 08:00 99.0 71 20 146/66 (92) 100 10/26/19 08:00 70 10/26/19 04:00 98.5 62 16 135/70 (91) 97 10/26/19 04:00 2.0 10/26/19 04:00 Nasal Cannula 2.0 Nasal Cannula 2.0 10/26/19 04:00 70 10/26/19 00:00 98.8 65 16 140/77 (98) 95 10/26/19 00:00 Nasal Cannula 2.0 Nasal Cannula 2.0 10/26/19 00:00 2.0 10/25/19 23:53 60 10/25/19 21:24 57 134/76 10/25/19 21:00 57 134/76 10/25/19 20:00 Nasal Cannula 2.0 Nasal Cannula 2.0 10/25/19 20:00 98.0 57 16 134/76 (95) 97 10/25/19 20:00 2.0 10/25/19 19:44 72 10/25/19 19:37 65 10/25/19 16:08 97.5 60 16 143/80 (101) 96 10/25/19 16:00 Nasal Cannula 2.0 Nasal Cannula 2.0 10/25/19 16:00 2.0 10/25/19 15:55 60 Intake and Output 10/25/19 10/26/19 19:00 07:00 Intake Total 320 ml 300 ml Output Total 1450 ml 1300 ml Balance -1130 ml -1000 ml Intake Oral 300 ml IV Total 320 ml Output Urine Total 1450 ml 1300 ml # Bowel Movements 4 Laboratory Tests 10/26/19 04:15: White Blood Count 6.9, Red Blood Count 2.73L, Hemoglobin 8.8L, Hematocrit 26.5L , Mean Corpuscular Volume 97, Mean Corpuscular Hemoglobin 32.1H, Mean Corpuscular Hemoglobin Concent 33.1, Red Cell Distribution Width 13.1, Platelet Count 216, Mean Platelet Volume 7.0, Neutrophils (%) (Auto) 66.4, Lymphocytes (% ) (Auto) 14.7L, Monocytes (%) (Auto) 10.5H, Eosinophils (%) (Auto) 7.1H, Basophils (%) (Auto) 1.3, Sodium Level 143, Potassium Level 4.3, Chloride Level 110H, Carbon Dioxide Level 21, Anion Gap 12, Blood Urea Nitrogen 40H, Creatinine 2.4H, Estimat Glomerular Filtration Rate 27.4, Glucose Level 95#, Uric Acid 6.3, Calcium Level 8.6, Phosphorus Level 3.2, Magnesium Level 1.8, Total Bilirubin 0.5, Aspartate Amino Transf (AST/SGOT) 19, Alanine Aminotransferase (ALT/SGPT) 17, Alkaline Phosphatase 112, Total Protein 6.9, Albumin 3.1L, Globulin 3.8, Albumin/Globulin Ratio 0.8L Height (Feet): 5 Height (Inches): 10.00 Weight (Pounds): 228 Cardiovascular: normal rate Respiratory/Chest: lungs clear Abdomen: soft Oni Schilling MD Oct 26, 2019 13:16
[2019-10-26] MEDS ORDERED: NS 275ml ONE (14:44)
[2019-10-26 16:00] VITALS: BP 149/69
[2019-10-26] MEDS: Tamsulosin 0.4mg cap ORAL SCH (17:31)
--- NOTE | 2019-10-26 17:31 | Consultation ---
History of Present Illness General Chief Complaint: Generalized Weakness Present Illness Allergies: Coded Allergies: No Known Allergies (Unverified , 10/07/17) Medication History Scheduled Amlodipine Besylate* (Amlodipine Besylate*), 5 MG ORAL DAILY, (Reported) Ascorbic Acid* (Vitamin C*), 500 MG ORAL DAILY, (Reported) Aspirin* (Aspir 81*), 81 MG ORAL DAILY, (Reported) Atorvastatin Calcium* (Atorvastatin Calcium*), 80 MG ORAL BEDTIME, (Reported) Clonidine Hcl* (Catapres*), 0.1 MG ORAL EVERY 6 HOURS, (Reported) Clopidogrel Bisulfate* (Plavix*), 75 MG ORAL DAILY, (Reported) Cranberry (Cranberry), 400 MG PO DAILY, (Reported) Docusate Sodium* (Docusate Sodium*), 100 MG ORAL TWICE A DAY, (Reported) Ergocalciferol (Vitamin D2)* (Vitamin D*), 50,000 UNIT ORAL ONCE A WEEK, ( Reported) Finasteride* (Proscar*), 5 MG ORAL DAILY, (Reported) Folic Acid* (Folic Acid*), 1 MG ORAL DAILY, (Reported) Glimepiride (Amaryl), 2 MG ORAL BEFORE BREAKFAST, (Reported) Insulin Detemir (Levemir), 0 SUBQ BEDTIME, (Reported) Levothyroxine Sodium* (Levothyroxine Sodium*), 200 MCG ORAL DAILY, (Reported) Losartan Potassium* (Losartan Potassium*), 50 MG ORAL DAILY, (Reported) Multivitamins* (Multivitamins*), 1 TAB ORAL DAILY, (Reported) Tamsulosin Hcl (Tamsulosin Hcl*), 0.4 MG ORAL BEDTIME, (Reported) Vit B Cmplx 3/Fa/Vit C/Biotin (Nephro-Kym Rx Tablet), 1 EACH PO DAILY, ( Reported) Warfarin Sod* (Coumadin*), 10 MG ORAL DAILY, (Reported) Scheduled PRN Acetaminophen* (Acetaminophen 325MG Tablet*), 650 MG ORAL Q6H PRN for Pain Scale (3-5), (Reported) Ondansetron* (Zofran*), 4 MG ORAL Q6H PRN for Nausea & Vomiting, (Reported) Polyethylene Glycol 3350* (Miralax*), 17 GM ORAL DAILY PRN for Constipation, ( Reported) Miscellaneous Medications Diclofenac Sodium (Solaraze), 100 GM TP, (Reported) Glucagon,Human Recombinant (Glucagon Emergency Kit), 1 MG IJ, (Reported) Patient History Healthcare decision maker Resuscitation status Full Code Advanced Directive on File No Physical Exam Last 24 Hour Vital Signs Date Time Temp Pulse Resp B/P (MAP) Pulse Ox O2 Delivery O2 Flow Rate FiO2 10/26/19 16:00 Nasal Cannula 2.0 Nasal Cannula 2.0 10/26/19 16:00 98.9 60 20 149/69 (95) 100 10/26/19 16:00 64 10/26/19 12:49 145/73 10/26/19 12:00 61 10/26/19 12:00 Nasal Cannula 2.0 Nasal Cannula 2.0 10/26/19 12:00 99.0 70 20 145/73 (97) 100 10/26/19 09:49 71 146/66 10/26/19 09:48 71 146/66 10/26/19 08:00 Nasal Cannula 2.0 Nasal Cannula 2.0 10/26/19 08:00 2.0 10/26/19 08:00 99.0 71 20 146/66 (92) 100 10/26/19 08:00 70 10/26/19 04:00 98.5 62 16 135/70 (91) 97 10/26/19 04:00 2.0 10/26/19 04:00 Nasal Cannula 2.0 Nasal Cannula 2.0 10/26/19 04:00 70 10/26/19 00:00 98.8 65 16 140/77 (98) 95 10/26/19 00:00 Nasal Cannula 2.0 Nasal Cannula 2.0 10/26/19 00:00 2.0 10/25/19 23:53 60 10/25/19 21:24 57 134/76 10/25/19 21:00 57 134/76 10/25/19 20:00 Nasal Cannula 2.0 Nasal Cannula 2.0 10/25/19 20:00 98.0 57 16 134/76 (95) 97 10/25/19 20:00 2.0 10/25/19 19:44 72 10/25/19 19:37 65 Intake and Output 10/25/19 10/26/19 19:00 07:00 Intake Total 320 ml 300 ml Output Total 1450 ml 1300 ml Balance -1130 ml -1000 ml Intake Oral 300 ml IV Total 320 ml Output Urine Total 1450 ml 1300 ml # Bowel Movements 4 Laboratory Tests Test 10/26/19 04:15 White Blood Count 6.9 K/UL (4.8-10.8) Red Blood Count 2.73 M/UL (4.70-6.10) L Hemoglobin 8.8 G/DL (14.2-18.0) L Hematocrit 26.5 % (42.0-52.0) L Mean Corpuscular Volume 97 FL (80-99) Mean Corpuscular Hemoglobin 32.1 PG (27.0-31.0) H Mean Corpuscular Hemoglobin Concent 33.1 G/DL (32.0-36.0) Red Cell Distribution Width 13.1 % (11.6-14.8) Platelet Count 216 K/UL (150-450) Mean Platelet Volume 7.0 FL (6.5-10.1) Neutrophils (%) (Auto) 66.4 % (45.0-75.0) Lymphocytes (%) (Auto) 14.7 % (20.0-45.0) L Monocytes (%) (Auto) 10.5 % (1.0-10.0) H Eosinophils (%) (Auto) 7.1 % (0.0-3.0) H Basophils (%) (Auto) 1.3 % (0.0-2.0) Sodium Level 143 MMOL/L (136-145) Potassium Level 4.3 MMOL/L (3.5-5.1) Chloride Level 110 MMOL/L (98-107) H Carbon Dioxide Level 21 MMOL/L (21-32) Anion Gap 12 mmol/L (5-15) Blood Urea Nitrogen 40 mg/dL (7-18) H Creatinine 2.4 MG/DL (0.55-1.30) H Estimat Glomerular Filtration Rate 27.4 mL/min (>60) Glucose Level 95 MG/DL (74-106) # Uric Acid 6.3 MG/DL (2.6-7.2) Calcium Level 8.6 MG/DL (8.5-10.1) Phosphorus Level 3.2 MG/DL (2.5-4.9) Magnesium Level 1.8 MG/DL (1.8-2.4) Total Bilirubin 0.5 MG/DL (0.2-1.0) Aspartate Amino Transf (AST/SGOT) 19 U/L (15-37) Alanine Aminotransferase (ALT/SGPT) 17 U/L (12-78) Alkaline Phosphatase 112 U/L (46-116) Total Protein 6.9 G/DL (6.4-8.2) Albumin 3.1 G/DL (3.4-5.0) L Globulin 3.8 g/dL Albumin/Globulin Ratio 0.8 (1.0-2.7) L Height (Feet): 5 Height (Inches): 10.00 Weight (Pounds): 228 Medications Current Medications Medications (Trade) Dose Ordered Sig/Leon Route PRN Reason Start Time Stop Time Status Last Admin Dose Admin Acetaminophen (Tylenol) 500 mg Q4H PRN ORAL Mild Pain/Temp > 100.5 10/24/19 04:30 11/23/19 04:29 Amlodipine Besylate (Norvasc) 5 mg Q12HR ORAL 10/25/19 21:00 11/24/19 20:59 10/26/19 09:49 Aspirin (Ecotrin) 81 mg DAILY ORAL 10/25/19 09:00 11/24/19 08:59 10/26/19 09:48 Atorvastatin Calcium (Lipitor) 80 mg BEDTIME ORAL 10/24/19 21:00 11/23/19 20:59 10/25/19 21:22 Clopidogrel Bisulfate (Plavix) 75 mg DAILY ORAL 10/25/19 09:00 11/24/19 08:59 10/25/19 09:09 Dextrose (Dextrose 50%) 25 ml Q30M PRN IV Hypoglycemia 10/24/19 05:15 11/23/19 05:14 Dextrose (Dextrose 50%) 50 ml Q30M PRN IV Hypoglycemia 10/24/19 05:15 11/23/19 05:14 Docusate Sodium (Colace) 100 mg TWICE A DAY ORAL 10/24/19 18:00 11/23/19 17:59 Finasteride (Proscar) 5 mg DAILY ORAL 10/25/19 09:00 11/24/19 08:59 10/26/19 09:48 Furosemide (Lasix) 40 mg DAILY ORAL 10/25/19 10:00 3/9/20 09:59 10/26/19 09:48 Levothyroxine Sodium (Synthroid) 150 mcg DAILY@0630 ORAL 10/24/19 06:30 11/23/19 06:29 10/26/19 05:51 Metoprolol Tartrate (Lopressor) 25 mg Q12HR ORAL 10/24/19 21:00 11/23/19 20:59 10/26/19 09:48 Nitroglycerin (Ntg) 1 patch Q24H TDERMAL 10/24/19 12:30 11/23/19 12:29 10/26/19 12:49 Pantoprazole (Protonix) 40 mg EVERY 12 HOURS ORAL 10/25/19 21:00 11/24/19 20:59 10/26/19 09:48 Tamsulosin HCl (Flomax) 0.4 mg BID ORAL 10/26/19 18:00 11/23/19 20:59 Assessment/Plan Assessment/Plan: Hematology Consultation REQ MD: Oni Liu DOS: 10/26/2019 RFC: anemia, coagulopathy, on coumadin HPI 64y old male, with hx as noted below, well known to me, at this time p/w anemia , as well as low bs, noted to have been given glucagon at the snf. The patient is on Coumadin after suffering a stroke. The patient denies any nausea or melena. Has a history of hematemesis and heme consulted, recently has been on coumadin. He denies any abdominal pain. The senior living facility assumed that he was vomiting this up. He denies this. Patient wears plates/dentures. He states he has not taken them out for a long time. He denies any pain. Labs have been reviewed, cbc is noted/ He denies any chest pain, shortness of breath, orthopnea or hemoptysis. He denies fevers or chills. Patient status post stroke with left-sided weakness. Patient is anticoagulated on Coumadin. History of diabetes. Allergies: Coded Allergies: No Known Allergies (Unverified , 10/07/17) Patient History Past Medical History: see triage record Past Surgical History: other - Toe amputations Social History: Denies: smoking Social History Narrative alf facility Reviewed Nursing Documentation: PMH: Agreed; PSxH: Agreed Past Medical History: No History, Except For Hx Hypertension: Yes Hx Diabetes: Yes Hx Cancer: No Hx Gastrointestinal Problems: No Hx Neurological Problems: Yes Hx Cerebrovascular Accident: Yes - Hemiplegia, Hemiparesis, affects L side Review of Systems All Other Systems: negative except mentioned in HPI PE Vitals: reviewed General Appearance: NAD + chronically ill HEENT: normocephalic, atraumatic ++ biconjunctival hemorrhage-> improved Neck: non-tender, normal alignment Respiratory/Chest: nromal breath sounds bilaterally Cardiovascular/Chest: normal peripheral pulses, normal rate Abdomen: normal bowel sounds, soft, nontender Extremities: normal range of motion, Right arm skin tear, left sided weaknness NEURO: ++ left sided weakness Labs: noted Imaging: reviewed Assessment and Recs: # Anemia due to underlying GI bleed -- patient presents with hematemesis before and now with barb --> as per GI eval, may need endoscopy --> has been started on ppi --> cea has been ordered --> Hgb goal >7. Transfuse prn. --> Will sign consent if necessary --> Epogen not started. IRON IV x 5 days started --> Consider octreotide gtt as per gi eval --> Medications have been reviewed --> Hgb 8.8 --> # Coagulation defect/Bleeding, multifactorial usually related to poor PO intake versus medications, in this case related to coumadin --> administer Vitamin K if patient is bleeding or FFP if the INR is >10 --> hold off on ffp unless active procedure/bleeding, first begin with vit K 10 --> mixing study as needed --> HAVE STOPPED COUMADIN --> per cards, hold off at this time, is aware of afib hx # Anemia due to folic acid deficiency/iron deficiency as well --> prior folic acid<5 --> recheck levels # Elevated troponin, rising, ?nstemi --> aware --> anticoag as per his recs # Renal failure (ARF), acute on chronic --> per renal Dr. Fisher # UTI --> abx as needed # Dvt ppx on scds now The timing of this note does not necessarily reflect the time of the patient was seen. Greatly appreciate consultation. Nate Whyte MD Oct 26, 2019 17:31
--- NOTE | 2019-10-26 18:00 | NUR ---
NURSE NOTES: Kamara cath discontinued,condom cath inserted,pt duiresed a lot and needs a condom cath.
--- NOTE | 2019-10-26 19:20 | NUR ---
HAND-OFF: Report given to Ebony Nieto RN..
--- NOTE | 2019-10-26 19:21 | NUR ---
NURSE NOTES: received pt from Kelly Thomas RN., pt is awake and AOx2-3 confused.pt has 2L of NC and O2sat is at 97% without SOB. Right HAnd 22G Right wrist 22G and Right FA 20G is intact, clean, and patent. pt's condom cath is on intact and clean. pt states no pain at this moment. call light within reach. bed at the lowest position, alarmed, and locked. will continue to monitor pt with plan of care.
[2019-10-26 19:54] VITALS: BP 149/73
[2019-10-26] MEDS: Iron Sucrose 100 MG in NS 55 ML IV SCH (20:46)
[2019-10-26] MEDS: Atorvastatin 80mg tab ORAL SCH (20:46)
[2019-10-27] VITALS: BP 154/80
[2019-10-27 04:00] VITALS: BP 141/77
[2019-10-27 04:52] LABS: BASOPHILS % (AUTO) 1.7 % (0.0-2.0); EOSINOPHILS % (AUTO) 5.1 % (0.0-3.0); HEMATOCRIT 25.6 % (42.0-52.0); HEMOGLOBIN 8.6 G/DL (14.2-18.0); LYMPHOCYTES % (AUTO) 10.3 % (20.0-45.0); MEAN CORPUSCULAR VOLUME 96 FL (80-99); MONOCYTES % (AUTO) 12.2 % (1.0-10.0); NEUTROPHILS % (AUTO) 70.7 % (45.0-75.0); PLATELET COUNT 207 K/UL (150-450); RED BLOOD COUNT 2.66 M/UL (4.70-6.10); RED CELL DISTRIBUTION WIDTH 12.9 % (11.6-14.8); WHITE BLOOD COUNT 6.6 K/UL (4.8-10.8)
[2019-10-27 05:25] LABS: ALANINE AMINOTRANSFERASE 15 U/L (12-78); ALBUMIN 2.9 G/DL (3.4-5.0); ALBUMIN/GLOBULIN RATIO 0.9 (1.0-2.7); ALKALINE PHOSPHATASE 110 U/L (46-116); ANION GAP 8 mmol/L (5-15); ASPARTATE AMINO TRANSFERASE 16 U/L (15-37); BILIRUBIN,TOTAL 0.7 MG/DL (0.2-1.0); BLOOD UREA NITROGEN 36 mg/dL (7-18); CALCIUM 8.4 MG/DL (8.5-10.1); CARBON DIOXIDE 25 MMOL/L (21-32); CHLORIDE 111 MMOL/L (98-107); CREATININE 2.3 MG/DL (0.55-1.30); PHOSPHORUS 3.3 MG/DL (2.5-4.9); POTASSIUM 4.5 MMOL/L (3.5-5.1); SODIUM 144 MMOL/L (136-145)
--- NOTE | 2019-10-27 06:11 | General Progress Note ---
Assessment/Plan Problem List: (1) Hypothyroid ICD Codes: E03.9 - Hypothyroidism, unspecified SNOMED: 16878539 (2) HTN (hypertension) ICD Codes: I10 - Essential (primary) hypertension SNOMED: 11450413 (3) Diabetic nephropathy ICD Codes: E11.21 - Type 2 diabetes mellitus with diabetic nephropathy SNOMED: 495847136 (4) Hypoglycemia ICD Codes: E16.2 - Hypoglycemia, unspecified SNOMED: 742369068 (5) Renal failure (ARF), acute on chronic ICD Codes: N17.9 - Acute kidney failure, unspecified; N18.9 - Chronic kidney disease, unspecified SNOMED: 727791582 Qualifiers: Qualified Codes: N17.9 - Acute kidney failure, unspecified; N18.3 - Chronic kidney disease, stage 3 (moderate) Status: progressing Assessment/Plan: continue LT4 150 mcg daily continue glucose monitoring no need for scheduled diabetic medications hypoglycemia protocol in order Subjective Allergies: Coded Allergies: No Known Allergies (Unverified , 10/07/17) All Systems: reviewed and negative except above Subjective events noted interval notes reviewed glucose values are low normal Item Value Date Time Bedside Blood Glucose 89 mg/dl 10/27/19 0400 Bedside Blood Glucose 90 mg/dl 10/27/19 0000 Bedside Blood Glucose 82 mg/dl 10/26/19 1953 Bedside Blood Glucose 89 mg/dl 10/26/19 1600 Bedside Blood Glucose 85 mg/dl 10/26/19 1200 Bedside Blood Glucose 87 mg/dl 10/26/19 0400 Bedside Blood Glucose 115 mg/dl 10/26/19 0000 Objective Last 24 Hour Vital Signs Date Time Temp Pulse Resp B/P (MAP) Pulse Ox O2 Delivery O2 Flow Rate FiO2 10/27/19 04:00 97.7 65 19 141/77 (98) 95 10/27/19 04:00 Nasal Cannula 2.0 Nasal Cannula 2.0 10/27/19 03:32 71 10/27/19 00:00 97.7 67 19 154/80 (104) 95 10/27/19 00:00 Nasal Cannula 2.0 Nasal Cannula 2.0 10/26/19 20:47 65 149/73 10/26/19 20:46 65 149/73 10/26/19 20:00 Nasal Cannula 2.0 Nasal Cannula 2.0 10/26/19 20:00 60 10/26/19 19:54 97.9 65 19 149/73 (98) 95 10/26/19 16:00 Nasal Cannula 2.0 Nasal Cannula 2.0 10/26/19 16:00 98.9 60 20 149/69 (95) 100 10/26/19 16:00 64 10/26/19 12:49 145/73 10/26/19 12:00 61 10/26/19 12:00 Nasal Cannula 2.0 Nasal Cannula 2.0 10/26/19 12:00 99.0 70 20 145/73 (97) 100 10/26/19 09:49 71 146/66 10/26/19 09:48 71 146/66 10/26/19 08:00 Nasal Cannula 2.0 Nasal Cannula 2.0 10/26/19 08:00 2.0 10/26/19 08:00 99.0 71 20 146/66 (92) 100 10/26/19 08:00 70 Intake and Output 10/26/19 10/27/19 19:00 07:00 Intake Total 240 ml 360 ml Output Total 2300 ml Balance -2060 ml 360 ml Intake Oral 240 ml 300 ml IV Total 60 ml Output Urine Total 2300 ml # Voids 4 # Bowel Movements 2 Laboratory Tests 10/27/19 03:30: White Blood Count 6.6, Red Blood Count 2.66L, Hemoglobin 8.6L, Hematocrit 25.6L , Mean Corpuscular Volume 96, Mean Corpuscular Hemoglobin 32.4H, Mean Corpuscular Hemoglobin Concent 33.6, Red Cell Distribution Width 12.9, Platelet Count 207, Mean Platelet Volume 6.7, Neutrophils (%) (Auto) 70.7, Lymphocytes (% ) (Auto) 10.3L, Monocytes (%) (Auto) 12.2H, Eosinophils (%) (Auto) 5.1H, Basophils (%) (Auto) 1.7, Sodium Level 144, Potassium Level 4.5, Chloride Level 111H, Carbon Dioxide Level 25, Anion Gap 8, Blood Urea Nitrogen 36H, Creatinine 2.3H, Estimat Glomerular Filtration Rate 28.8, Glucose Level 87, Calcium Level 8.4L, Phosphorus Level 3.3, Magnesium Level 1.7L, Total Bilirubin 0.7, Aspartate Amino Transf (AST/SGOT) 16, Alanine Aminotransferase (ALT/SGPT) 15, Alkaline Phosphatase 110, Troponin I 1.008H, C-Reactive Protein, Quantitative 2.1H, Pro-B-Type Natriuretic Peptide 85503G, Total Protein 6.2L, Albumin 2.9L, Globulin 3.3, Albumin/Globulin Ratio 0.9L, Carcinoembryonic Antigen [Pending] Height (Feet): 5 Height (Inches): 10.00 Weight (Pounds): 228 General Appearance: no apparent distress Neck: normal alignment Cardiovascular: normal rate Respiratory/Chest: lungs clear Abdomen: normal bowel sounds Objective Current Medications Medications (Trade) Dose Ordered Sig/Leon Route PRN Reason Start Time Stop Time Status Last Admin Dose Admin Acetaminophen (Tylenol) 500 mg Q4H PRN ORAL Mild Pain/Temp > 100.5 10/24/19 04:30 11/23/19 04:29 Amlodipine Besylate (Norvasc) 5 mg Q12HR ORAL 10/25/19 21:00 11/24/19 20:59 10/26/19 20:46 Aspirin (Ecotrin) 81 mg DAILY ORAL 10/25/19 09:00 11/24/19 08:59 10/26/19 09:48 Atorvastatin Calcium (Lipitor) 80 mg BEDTIME ORAL 10/24/19 21:00 11/23/19 20:59 10/26/19 20:46 Clopidogrel Bisulfate (Plavix) 75 mg DAILY ORAL 10/25/19 09:00 11/24/19 08:59 10/25/19 09:09 Dextrose (Dextrose 50%) 25 ml Q30M PRN IV Hypoglycemia 10/24/19 05:15 11/23/19 05:14 Dextrose (Dextrose 50%) 50 ml Q30M PRN IV Hypoglycemia 10/24/19 05:15 11/23/19 05:14 Docusate Sodium (Colace) 100 mg TWICE A DAY ORAL 10/24/19 18:00 11/23/19 17:59 Finasteride (Proscar) 5 mg DAILY ORAL 10/25/19 09:00 11/24/19 08:59 10/26/19 09:48 Furosemide (Lasix) 40 mg DAILY ORAL 10/25/19 10:00 11/24/19 09:59 10/26/19 09:48 Iron Sucrose 100 mg/Sodium Chloride 60 ml @ 240 mls/hr BEDTIME IV 10/26/19 21:00 10/30/19 21:14 10/26/19 20:46 Levothyroxine Sodium (Synthroid) 150 mcg DAILY@0630 ORAL 10/24/19 06:30 11/23/19 06:29 10/26/19 05:51 Metoprolol Tartrate (Lopressor) 25 mg Q12HR ORAL 10/24/19 21:00 11/23/19 20:59 10/26/19 09:48 Nitroglycerin (Ntg) 1 patch Q24H TDERMAL 10/24/19 12:30 11/23/19 12:29 10/26/19 12:49 Pantoprazole (Protonix) 40 mg EVERY 12 HOURS ORAL 10/25/19 21:00 11/24/19 20:59 10/26/19 20:47 Tamsulosin HCl (Flomax) 0.4 mg BID ORAL 10/26/19 18:00 11/23/19 20:59 10/26/19 17:31 Aureliano Estrada MD Oct 27, 2019 06:11
--- NOTE | 2019-10-27 07:30 | Consultation ---
DATE OF CONSULTATION: 10/24/2019 NOTE: "POOR AUDIO QUALITY" ENDOCRINOLOGY CONSULTATION CONSULTING PHYSICIAN: Aureliano Estrada M.D. REFERRING PHYSICIAN: Oni Schilling M.D. REASON FOR CONSULTATION: Hypoglycemia. HISTORY OF PRESENT ILLNESS: The patient is a 64-year-old male with past medical history of diabetes, who presented [facility] the hospital [facility] with hypoglycemia. Glucose on presentation was 25. The patient was given a dose of hydrocortisone and started on D10 at 100 mL/hour, and asked me to consult. current glucose is 115. PAST MEDICAL HISTORY: 1. Diabetes. 2. Hypothyroidism. 3. Chronic kidney disease. 4. Recent admission with oral bleeding. 5. Hypertension. 6. 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 ALLERGIES TO MEDICATIONS: None. MEDICATIONS: Reviewed and reconciled. REVIEW OF SYSTEMS: As per HPI. FAMILY HISTORY: Noncontributory. LABORATORY VALUES: Sodium 142, potassium 4.5, chloride 108, bicarbonate 24, BUN 29, creatinine 2.3, and glucose of 115. TSH is 0.9. BNP is at 13,160 and troponin is 1.8. PHYSICAL EXAMINATION: VITAL SIGNS: Blood pressure is 137/79, pulse of 70, temperature of 98.2, and respiratory rate of 16. HEENT: Pupils are equal and reactive to light. Sclerae anicteric. NECK: No JVD. HEART: Regular. LUNGS: Clear. ABDOMEN: Positive bowel sounds. Soft. EXTREMITIES: Left-sided weakness noted. DIAGNOSES: 1. Hypoglycemia, severe. 2. Diabetes. 3. Chronic kidney disease. 4. Hypothyroidism. 5. History of CVA. DISCUSSION: Hypoglycemia is most likely the result of combination of Levemir and glimepiride. The patient received a complete dose of glucagon in the emergency room and he has been infused with dextrose 10% at 100 mL/h. The patient has CHF and volume overload is a concern. I will reduce the dose of D10 to 75 mL/h and at the same time give him octreotide 50 mcg subcutaneous every 8 hours until the glucose rises. Frequent glucose monitoring without insulin coverage has been ordered. Next, I will resume levothyroxine same dose sinceTSH is at target. I will follow him during the stay. Thank you Dr. Schilling for the courtesy of this consultation. Aureliano Estrada M.D. DR: ALLEY JOB#: [id number] CC: JELENA
--- NOTE | 2019-10-27 07:30 | Consultation ---
DATE OF CONSULTATION: 10/26/2019 REFERRING PHYSICIAN: Oni Schilling M.D. CONSULTING PHYSICIAN: Ignacio Hanson M.D. PHYSICIAN COMPUTERIZED MACHINE FABRIC CUTTER: Lolis Booker CHIEF COMPLAINT: Left-sided body pain HISTORY OF PRESENT ILLNESS: This is a 64-year-old male who is being seen on the telemetry floor of [facility] for initial pain management consultation. The patient was admitted under the care of Dr. Schilling due to hyperglycemia and sepsis. He has chronic left-sided body pain due to history of CVA with left-sided weakness, and has been transferred from the snf facility, on Tylenol as needed for pain. He is comfortable at this time. We were consulted so the patient would have adequate pain control while here in the hospital. PAST MEDICAL HISTORY: Hypertension, hyperlipidemia, consultation, BPH, diabetes mellitus, hypothyroidism, arrhythmia, GERD, and left-sided weakness due to CVA. PAST SURGICAL HISTORY: Brain surgery, ear surgery, cholecystectomy, bilateral toe amputations. SOCIAL HISTORY: Denies smoking, drinking alcohol, or IV drug abuse. ALLERGIES: No known drug allergies. MEDICATIONS: Amlodipine, Vitamin C, aspirin, atorvastatin, Catapres, Plavix, cranberry, Docusate, vitamin D, Proscar, folic acid, Amaryl, Levemir, levothyroxine, losartan, multivitamin, Nephro-Kym, Coumadin, Tylenol, Zofran, MiraLAX. REVIEW OF SYSTEMS: Denies rash, fever, chills, sweating, dizziness, drowsiness, blurred vision, sore throat, or change in weight. No shortness of breath or chest pain. No nausea, vomiting, diarrhea, or blood in the stool or urine. No bowel or bladder incontinence. No dysuria. PHYSICAL EXAMINATION: GENERAL: Alert, awake, and oriented. VITAL SIGNS: Stable HEENT: PERRLA. NECK: Range of motion is full in all directions. LUNGS: Decreased breath sounds bilaterally. HEART: S1 and S2 regular. ABDOMEN: Soft, nontender. BACK: Range of motion is decreased in flexion and extension. EXTREMITIES: Upper and lower extremity range of motion is decreased due to the patient condition. No cyanosis. No clubbing. Sensory is reduced. Reflexes are not obtainable. No adenopathy. ASSESSMENT AND PLAN: This is a 46-year-old male with history of CVA, left-sided weakness, thalamic pain syndrome. Patient will be continued on Tylenol as needed. The patient was discussed with Dr. Hanson and Dr. Hanson concurred. We will follow the patient. Thank you very much for the courtesy of this consultation. Ignacio Hanson M.D. CHILO Booker DR: Suha JOB#: [id number] CC: JELENA
[2019-10-27 08:00] VITALS: BP 163/76
--- NOTE | 2019-10-27 08:58 | Nephrology Progress Note ---
Assessment/Plan Problem List: (1) Renal failure (ARF), acute on chronic (2) Elevated troponin (3) Hypoglycemia (4) Hypothyroid (5) HTN (hypertension) (6) Diabetic nephropathy (7) Anemia in chronic kidney disease (CKD) Assessment Urinary retention Renal failure (ARF), acute on chronic Anemia: s/p GI Bleed on anticoagulation h/o Hypertension Elevated troponin h/o Hypothyroid DM- Hypoglycemia on presentation h/o UTI Plan DC Kamara BP management IV Iron watch HR 2D Echo NOTED Kidney MARCO A NOTED Avoid nephrotoxics antibiotics Per orders / per consultants Subjective ROS Limited/Unobtainable: No Constitutional: Reports: malaise Objective Objective Last 24 Hour Vital Signs Date Time Temp Pulse Resp B/P (MAP) Pulse Ox O2 Delivery O2 Flow Rate FiO2 10/27/19 08:00 Nasal Cannula 2.0 Nasal Cannula 2.0 10/27/19 08:00 98.2 61 20 163/76 (105) 91 10/27/19 04:00 97.7 65 19 141/77 (98) 95 10/27/19 04:00 Nasal Cannula 2.0 Nasal Cannula 2.0 10/27/19 03:32 71 10/27/19 00:00 97.7 67 19 154/80 (104) 95 10/27/19 00:00 Nasal Cannula 2.0 Nasal Cannula 2.0 10/26/19 20:47 65 149/73 10/26/19 20:46 65 149/73 10/26/19 20:00 Nasal Cannula 2.0 Nasal Cannula 2.0 10/26/19 20:00 60 10/26/19 19:54 97.9 65 19 149/73 (98) 95 10/26/19 16:00 Nasal Cannula 2.0 Nasal Cannula 2.0 10/26/19 16:00 98.9 60 20 149/69 (95) 100 10/26/19 16:00 64 10/26/19 12:49 145/73 10/26/19 12:00 61 10/26/19 12:00 Nasal Cannula 2.0 Nasal Cannula 2.0 10/26/19 12:00 99.0 70 20 145/73 (97) 100 10/26/19 09:49 71 146/66 10/26/19 09:48 71 146/66 Intake and Output 10/26/19 10/27/19 19:00 07:00 Intake Total 240 ml 360 ml Output Total 2300 ml Balance -2060 ml 360 ml Intake Oral 240 ml 300 ml IV Total 60 ml Output Urine Total 2300 ml # Voids 4 # Bowel Movements 2 Current Medications Medications (Trade) Dose Ordered Sig/Leon Route PRN Reason Start Time Stop Time Status Last Admin Dose Admin Acetaminophen (Tylenol) 500 mg Q4H PRN ORAL Mild Pain/Temp > 100.5 10/24/19 04:30 11/23/19 04:29 Amlodipine Besylate (Norvasc) 5 mg Q12HR ORAL 10/25/19 21:00 11/24/19 20:59 10/26/19 20:46 Aspirin (Ecotrin) 81 mg DAILY ORAL 10/25/19 09:00 11/24/19 08:59 10/26/19 09:48 Atorvastatin Calcium (Lipitor) 80 mg BEDTIME ORAL 10/24/19 21:00 11/23/19 20:59 10/26/19 20:46 Clopidogrel Bisulfate (Plavix) 75 mg DAILY ORAL 10/25/19 09:00 11/24/19 08:59 10/25/19 09:09 Dextrose (Dextrose 50%) 25 ml Q30M PRN IV Hypoglycemia 10/24/19 05:15 11/23/19 05:14 Dextrose (Dextrose 50%) 50 ml Q30M PRN IV Hypoglycemia 10/24/19 05:15 11/23/19 05:14 Docusate Sodium (Colace) 100 mg TWICE A DAY ORAL 10/24/19 18:00 11/23/19 17:59 Finasteride (Proscar) 5 mg DAILY ORAL 10/25/19 09:00 11/24/19 08:59 10/26/19 09:48 Furosemide (Lasix) 40 mg DAILY ORAL 10/25/19 10:00 11/24/19 09:59 10/26/19 09:48 Iron Sucrose 100 mg/Sodium Chloride 60 ml @ 240 mls/hr BEDTIME IV 10/26/19 21:00 10/30/19 21:14 10/26/19 20:46 Levothyroxine Sodium (Synthroid) 150 mcg DAILY@0630 ORAL 10/24/19 06:30 11/23/19 06:29 10/27/19 06:21 Magnesium Sulfate 100 ml @ 100 mls/hr Q1H IVPB 10/27/19 09:00 10/27/19 10:59 Metoprolol Tartrate (Lopressor) 25 mg Q12HR ORAL 10/24/19 21:00 11/23/19 20:59 10/26/19 09:48 Nitroglycerin (Ntg) 1 patch Q24H TDERMAL 10/24/19 12:30 11/23/19 12:29 10/26/19 12:49 Pantoprazole (Protonix) 40 mg EVERY 12 HOURS ORAL 10/25/19 21:00 11/24/19 20:59 10/26/19 20:47 Tamsulosin HCl (Flomax) 0.4 mg BID ORAL 10/26/19 18:00 11/23/19 20:59 10/26/19 17:31 Laboratory Tests 10/27/19 03:30: White Blood Count 6.6, Red Blood Count 2.66L, Hemoglobin 8.6L, Hematocrit 25.6L , Mean Corpuscular Volume 96, Mean Corpuscular Hemoglobin 32.4H, Mean Corpuscular Hemoglobin Concent 33.6, Red Cell Distribution Width 12.9, Platelet Count 207, Mean Platelet Volume 6.7, Neutrophils (%) (Auto) 70.7, Lymphocytes (% ) (Auto) 10.3L, Monocytes (%) (Auto) 12.2H, Eosinophils (%) (Auto) 5.1H, Basophils (%) (Auto) 1.7, Sodium Level 144, Potassium Level 4.5, Chloride Level 111H, Carbon Dioxide Level 25, Anion Gap 8, Blood Urea Nitrogen 36H, Creatinine 2.3H, Estimat Glomerular Filtration Rate 28.8, Glucose Level 87, Calcium Level 8.4L, Phosphorus Level 3.3, Magnesium Level 1.7L, Total Bilirubin 0.7, Aspartate Amino Transf (AST/SGOT) 16, Alanine Aminotransferase (ALT/SGPT) 15, Alkaline Phosphatase 110, Troponin I 1.008H, C-Reactive Protein, Quantitative 2.1H, Pro-B-Type Natriuretic Peptide 59672E, Total Protein 6.2L, Albumin 2.9L, Globulin 3.3, Albumin/Globulin Ratio 0.9L, Carcinoembryonic Antigen [Pending] Height (Feet): 5 Height (Inches): 10.00 Weight (Pounds): 228 General Appearance: no apparent distress Cardiovascular: arrhythmia Respiratory/Chest: decreased breath sounds Abdomen: soft Objective no change Rafa Farr MD Oct 27, 2019 08:58
[2019-10-27] MEDS: Docusate 100mg cap ORAL SCH ×2 (09:00→17:01)
[2019-10-27] MEDS: Aspirin EC 81mg tab ORAL SCH (09:00)
--- NOTE | 2019-10-27 09:00 | General Progress Note ---
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 D/w Dr. Hanson and he concurred. Subjective Date patient seen: Oct 27, 2019 Time patient seen: 08:15 - am Allergies: Coded Allergies: No Known Allergies (Unverified , 10/07/17) Subjective REVIEW OF SYSTEMS: Denies rash, fever, chills, sweating, dizziness, drowsiness, blurred vision, sore throat, or change in weight. No shortness of breath or chest pain. No nausea, vomiting, diarrhea, or blood in the stool or urine. No bowel or bladder incontinence. No dysuria. SUBJECTIVE: Patient is in bed and denies pain at this time. No new complaints. Objective Last 24 Hour Vital Signs Date Time Temp Pulse Resp B/P (MAP) Pulse Ox O2 Delivery O2 Flow Rate FiO2 10/27/19 08:00 Nasal Cannula 2.0 Nasal Cannula 2.0 10/27/19 08:00 98.2 61 20 163/76 (105) 91 10/27/19 04:00 97.7 65 19 141/77 (98) 95 10/27/19 04:00 Nasal Cannula 2.0 Nasal Cannula 2.0 10/27/19 03:32 71 10/27/19 00:00 97.7 67 19 154/80 (104) 95 10/27/19 00:00 Nasal Cannula 2.0 Nasal Cannula 2.0 10/26/19 20:47 65 149/73 10/26/19 20:46 65 149/73 10/26/19 20:00 Nasal Cannula 2.0 Nasal Cannula 2.0 10/26/19 20:00 60 10/26/19 19:54 97.9 65 19 149/73 (98) 95 10/26/19 16:00 Nasal Cannula 2.0 Nasal Cannula 2.0 10/26/19 16:00 98.9 60 20 149/69 (95) 100 10/26/19 16:00 64 10/26/19 12:49 145/73 10/26/19 12:00 61 10/26/19 12:00 Nasal Cannula 2.0 Nasal Cannula 2.0 10/26/19 12:00 99.0 70 20 145/73 (97) 100 10/26/19 09:49 71 146/66 10/26/19 09:48 71 146/66 Intake and Output 10/26/19 10/27/19 19:00 07:00 Intake Total 240 ml 360 ml Output Total 2300 ml Balance -2060 ml 360 ml Intake Oral 240 ml 300 ml IV Total 60 ml Output Urine Total 2300 ml # Voids 4 # Bowel Movements 2 Laboratory Tests 10/27/19 03:30: White Blood Count 6.6, Red Blood Count 2.66L, Hemoglobin 8.6L, Hematocrit 25.6L , Mean Corpuscular Volume 96, Mean Corpuscular Hemoglobin 32.4H, Mean Corpuscular Hemoglobin Concent 33.6, Red Cell Distribution Width 12.9, Platelet Count 207, Mean Platelet Volume 6.7, Neutrophils (%) (Auto) 70.7, Lymphocytes (% ) (Auto) 10.3L, Monocytes (%) (Auto) 12.2H, Eosinophils (%) (Auto) 5.1H, Basophils (%) (Auto) 1.7, Sodium Level 144, Potassium Level 4.5, Chloride Level 111H, Carbon Dioxide Level 25, Anion Gap 8, Blood Urea Nitrogen 36H, Creatinine 2.3H, Estimat Glomerular Filtration Rate 28.8, Glucose Level 87, Calcium Level 8.4L, Phosphorus Level 3.3, Magnesium Level 1.7L, Total Bilirubin 0.7, Aspartate Amino Transf (AST/SGOT) 16, Alanine Aminotransferase (ALT/SGPT) 15, Alkaline Phosphatase 110, Troponin I 1.008H, C-Reactive Protein, Quantitative 2.1H, Pro-B-Type Natriuretic Peptide 67351N, Total Protein 6.2L, Albumin 2.9L, Globulin 3.3, Albumin/Globulin Ratio 0.9L, Carcinoembryonic Antigen [Pending] Height (Feet): 5 Height (Inches): 10.00 Weight (Pounds): 228 Objective GENERAL: Alert, awake, and oriented. LUNGS: Decreased breath sounds bilaterally. HEART: S1 and S2 regular. ABDOMEN: Soft, nontender. EXTREMITIES: No cyanosis. No clubbing. NEURO: No changes. Warren Torres Oct 27, 2019 09:00
[2019-10-27] MEDS: Furosemide 40mg tab ORAL SCH (09:06)
[2019-10-27] MEDS: Tamsulosin 0.4mg cap ORAL SCH ×2 (09:06→17:02)
--- NOTE | 2019-10-27 09:54 | NUR ---
NURSE NOTES: Dr. Whyte aware pt had episode of left nose bleed. no new order. will continue to monitor pt
--- NOTE | 2019-10-27 09:56 | NUR ---
NURSE NOTES: Dr. Bazan is at the bedside. per Dr. Bazan Lopressor parameter is if SBP <90 or HR<55 hold. noted and will carry on.
--- NOTE | 2019-10-27 10:27 | Cardiac Electrophysiology PN ---
Assessment/Plan Assessment/Plan 1. NSTEMI. Troponin is 1.8. Down to 1.3 and no CP. ECG no acute ischemia and Echo Nl EF. Likely due to renal failure. Has history of RI in July 2019 with troponin critical of more than 24. His echocardiogram shows EF of 60%. Continue aspirin, low-dose beta-toby, and statin. 2. Questionable atrial fibrillation or DVT, currently remain in sinus rhythm. He used to be on anticoagulation. 3. Hypothyroidism, on Synthroid. 4. History of CVA with left hemiplegia.On Plavix 5. Nose bleed. Resume Aspirin DW RN Subjective Subjective Feeling better. In SR. BS is better. Bleeding from Left nostril. Aspirin and Plavix was held Objective Last 24 Hour Vital Signs Date Time Temp Pulse Resp B/P (MAP) Pulse Ox O2 Delivery O2 Flow Rate FiO2 10/27/19 09:06 61 163/76 10/27/19 08:00 Nasal Cannula 2.0 Nasal Cannula 2.0 10/27/19 08:00 98.2 61 20 163/76 (105) 91 10/27/19 04:00 97.7 65 19 141/77 (98) 95 10/27/19 04:00 Nasal Cannula 2.0 Nasal Cannula 2.0 10/27/19 03:32 71 10/27/19 00:00 97.7 67 19 154/80 (104) 95 10/27/19 00:00 Nasal Cannula 2.0 Nasal Cannula 2.0 10/26/19 23:30 62 10/26/19 20:47 65 149/73 10/26/19 20:46 65 149/73 10/26/19 20:00 Nasal Cannula 2.0 Nasal Cannula 2.0 10/26/19 20:00 60 10/26/19 19:54 97.9 65 19 149/73 (98) 95 10/26/19 16:00 Nasal Cannula 2.0 Nasal Cannula 2.0 10/26/19 16:00 98.9 60 20 149/69 (95) 100 10/26/19 16:00 64 10/26/19 12:49 145/73 10/26/19 12:00 61 10/26/19 12:00 Nasal Cannula 2.0 Nasal Cannula 2.0 10/26/19 12:00 99.0 70 20 145/73 (97) 100 Intake and Output 10/26/19 10/27/19 19:00 07:00 Intake Total 240 ml 360 ml Output Total 2300 ml Balance -2060 ml 360 ml Intake Oral 240 ml 300 ml IV Total 60 ml Output Urine Total 2300 ml # Voids 4 # Bowel Movements 2 Laboratory Tests Test 10/27/19 03:30 White Blood Count 6.6 K/UL (4.8-10.8) Red Blood Count 2.66 M/UL (4.70-6.10) L Hemoglobin 8.6 G/DL (14.2-18.0) L Hematocrit 25.6 % (42.0-52.0) L Mean Corpuscular Volume 96 FL (80-99) Mean Corpuscular Hemoglobin 32.4 PG (27.0-31.0) H Mean Corpuscular Hemoglobin Concent 33.6 G/DL (32.0-36.0) Red Cell Distribution Width 12.9 % (11.6-14.8) Platelet Count 207 K/UL (150-450) Mean Platelet Volume 6.7 FL (6.5-10.1) Neutrophils (%) (Auto) 70.7 % (45.0-75.0) Lymphocytes (%) (Auto) 10.3 % (20.0-45.0) L Monocytes (%) (Auto) 12.2 % (1.0-10.0) H Eosinophils (%) (Auto) 5.1 % (0.0-3.0) H Basophils (%) (Auto) 1.7 % (0.0-2.0) Sodium Level 144 MMOL/L (136-145) Potassium Level 4.5 MMOL/L (3.5-5.1) Chloride Level 111 MMOL/L (98-107) H Carbon Dioxide Level 25 MMOL/L (21-32) Anion Gap 8 mmol/L (5-15) Blood Urea Nitrogen 36 mg/dL (7-18) H Creatinine 2.3 MG/DL (0.55-1.30) H Estimat Glomerular Filtration Rate 28.8 mL/min (>60) Glucose Level 87 MG/DL (74-106) Calcium Level 8.4 MG/DL (8.5-10.1) L Phosphorus Level 3.3 MG/DL (2.5-4.9) Magnesium Level 1.7 MG/DL (1.8-2.4) L Total Bilirubin 0.7 MG/DL (0.2-1.0) Aspartate Amino Transf (AST/SGOT) 16 U/L (15-37) Alanine Aminotransferase (ALT/SGPT) 15 U/L (12-78) Alkaline Phosphatase 110 U/L (46-116) Troponin I 1.008 ng/mL (0.000-0.056) C-Reactive Protein, Quantitative 2.1 mg/dL (0.00-0.90) H Pro-B-Type Natriuretic Peptide 31395 pg/mL (0-125) H Total Protein 6.2 G/DL (6.4-8.2) L Albumin 2.9 G/DL (3.4-5.0) L Globulin 3.3 g/dL Albumin/Globulin Ratio 0.9 (1.0-2.7) L Carcinoembryonic Antigen Pending Objective HEAD AND NECK: No JVD. LUNGS: Clear. CARDIOVASCULAR: Regular S1 and S2 with no gallop. ABDOMEN: Soft. EXTREMITIES: The patient has left hemiplegia with contraction of left arm. Castillo Bazan MD Oct 27, 2019 10:27
--- NOTE | 2019-10-27 11:10 | NUR ---
NURSE NOTES: Received report from Ebony DENIS RN- pt. in bed awake, appears to be A/O x's 2-3 - able to make needs known, mother at bedside, pt. appears to be sating well on 2L NC- no distress noted, bed in low position and call light within easy reach, bed alarm on, and safety brakes engaged, pt. appears to be sitting in bed comfortable- per endorsement pt. had nose bleed and doctor is aware- will continue to monitor pt., RT. Hand 22G , Rt. wrist 22G and RFA 20G all IVs intact and patent, safety measures continued, will continue with plan of care.
--- NOTE | 2019-10-27 11:12 | NUR ---
HAND-OFF: Report given to Keith BLAKE. pt is in stable condition.
[2019-10-27 12:00] VITALS: BP 159/75
[2019-10-27] MEDS: Nitroglycerin Patch 0.4mg TDERMAL SCH (12:15)
--- NOTE | 2019-10-27 13:23 | NUR ---
NURSE NOTES: left message for DR. Whyte- pt. continuing to bleed off and on with nose bleed- awaiting for call back from doctor- pt. remains stable.
--- NOTE | 2019-10-27 14:18 | NUR ---
NURSE NOTES: per DR. Ludwig Whyte to order 1U PRBC- will carry out order.
--- NOTE | 2019-10-27 14:24 | NUR ---
NURSE NOTES: made pt. aware of blood transfusion of receiving 1U - pt. refusing- explained benefits- pt. continues to refuse- left message for doctor Pato- awaiting for call back from doctor.
--- NOTE | 2019-10-27 14:30 | NUR ---
NURSE NOTES: DR. Whyte made aware of pt. refusing blood transfusion- no new orders given.
--- NOTE | 2019-10-27 14:56 | NUR ---
[employer] SI: HYPOGLYCEMIA,ACUTE RENAL FAILURE T. 98.2 HR 102 RR 20 B/P 163/75 2L NC TROP 1.008 BUN 36 CR 2.3 BNP 99015 IS: IRON IV PROTONIX LASIX PO ASA PO STEP DOWN STATUS
[2019-10-27] MEDS ORDERED: FERROUS SULFAT325 MG ORAL (15:04)
[2019-10-27] MEDS ORDERED: NOVOLOG100 UNIT/4 SQ (15:04)
[2019-10-27] MEDS ORDERED: LEVEMIR100 UNIT/1 SUBQ (15:04)
--- NOTE | 2019-10-27 15:58 | Pulmonology Progress Note ---
Assessment/Plan Assessment/Plan IMPRESSION: 1. Mild pulmonary vascular congestion. 2. Hypertension. 3. Diabetes mellitus. 4. Previous CVA. 5. Hypoglycemia. 6. Hypoxemia. DISCUSSION: Continue low flow O2 Continue diuresis OK to dc back to snf Janes Cox M.D. Subjective Interval Events: none new Constitutional: Reports: no symptoms HEENT: Repors: no symptoms Respiratory: Reports: no symptoms Cardiovascular: Reports: no symptoms Gastrointestinal/Abdominal: Reports: no symptoms Allergies: Coded Allergies: No Known Allergies (Unverified , 10/07/17) Objective Last 24 Hour Vital Signs Date Time Temp Pulse Resp B/P (MAP) Pulse Ox O2 Delivery O2 Flow Rate FiO2 10/27/19 12:15 159/75 10/27/19 12:00 98.8 78 21 159/75 (103) 94 10/27/19 12:00 Nasal Cannula 2.0 Nasal Cannula 2.0 10/27/19 11:50 75 10/27/19 09:06 61 163/76 10/27/19 08:00 Nasal Cannula 2.0 Nasal Cannula 2.0 10/27/19 08:00 98.2 61 20 163/76 (105) 91 10/27/19 07:41 102 10/27/19 04:00 97.7 65 19 141/77 (98) 95 10/27/19 04:00 Nasal Cannula 2.0 Nasal Cannula 2.0 10/27/19 03:32 71 10/27/19 00:00 97.7 67 19 154/80 (104) 95 10/27/19 00:00 Nasal Cannula 2.0 Nasal Cannula 2.0 10/26/19 23:30 62 10/26/19 20:47 65 149/73 10/26/19 20:46 65 149/73 10/26/19 20:00 Nasal Cannula 2.0 Nasal Cannula 2.0 10/26/19 20:00 60 10/26/19 19:54 97.9 65 19 149/73 (98) 95 10/26/19 16:00 Nasal Cannula 2.0 Nasal Cannula 2.0 10/26/19 16:00 98.9 60 20 149/69 (95) 100 10/26/19 16:00 64 Intake and Output 10/26/19 10/27/19 19:00 07:00 Intake Total 240 ml 360 ml Output Total 2300 ml Balance -2060 ml 360 ml Intake Oral 240 ml 300 ml IV Total 60 ml Output Urine Total 2300 ml # Voids 4 # Bowel Movements 2 General Appearance: no acute distress HEENT: normocephalic Respiratory/Chest: chest wall non-tender, lungs clear Cardiovascular: normal peripheral pulses, normal rate Abdomen: normal bowel sounds Laboratory Tests 10/27/19 03:30: White Blood Count 6.6, Red Blood Count 2.66L, Hemoglobin 8.6L, Hematocrit 25.6L , Mean Corpuscular Volume 96, Mean Corpuscular Hemoglobin 32.4H, Mean Corpuscular Hemoglobin Concent 33.6, Red Cell Distribution Width 12.9, Platelet Count 207, Mean Platelet Volume 6.7, Neutrophils (%) (Auto) 70.7, Lymphocytes (% ) (Auto) 10.3L, Monocytes (%) (Auto) 12.2H, Eosinophils (%) (Auto) 5.1H, Basophils (%) (Auto) 1.7, Sodium Level 144, Potassium Level 4.5, Chloride Level 111H, Carbon Dioxide Level 25, Anion Gap 8, Blood Urea Nitrogen 36H, Creatinine 2.3H, Estimat Glomerular Filtration Rate 28.8, Glucose Level 87, Calcium Level 8.4L, Phosphorus Level 3.3, Magnesium Level 1.7L, Total Bilirubin 0.7, Aspartate Amino Transf (AST/SGOT) 16, Alanine Aminotransferase (ALT/SGPT) 15, Alkaline Phosphatase 110, Troponin I 1.008H, C-Reactive Protein, Quantitative 2.1H, Pro-B-Type Natriuretic Peptide 41096M, Total Protein 6.2L, Albumin 2.9L, Globulin 3.3, Albumin/Globulin Ratio 0.9L, Carcinoembryonic Antigen [Pending] Current Medications Medications (Trade) Dose Ordered Sig/Leon Route PRN Reason Start Time Stop Time Status Last Admin Dose Admin Acetaminophen (Tylenol) 500 mg Q4H PRN ORAL Mild Pain/Temp > 100.5 10/24/19 04:30 11/23/19 04:29 Amlodipine Besylate (Norvasc) 5 mg Q12HR ORAL 10/25/19 21:00 11/24/19 20:59 10/27/19 09:06 Aspirin (Ecotrin) 81 mg DAILY ORAL 10/25/19 09:00 11/24/19 08:59 10/26/19 09:48 Atorvastatin Calcium (Lipitor) 80 mg BEDTIME ORAL 10/24/19 21:00 11/23/19 20:59 10/26/19 20:46 Clopidogrel Bisulfate (Plavix) 75 mg DAILY ORAL 10/25/19 09:00 11/24/19 08:59 10/25/19 09:09 Dextrose (Dextrose 50%) 25 ml Q30M PRN IV Hypoglycemia 10/24/19 05:15 11/23/19 05:14 Dextrose (Dextrose 50%) 50 ml Q30M PRN IV Hypoglycemia 10/24/19 05:15 11/23/19 05:14 Docusate Sodium (Colace) 100 mg TWICE A DAY ORAL 10/24/19 18:00 11/23/19 17:59 Finasteride (Proscar) 5 mg DAILY ORAL 10/25/19 09:00 11/24/19 08:59 10/27/19 09:06 Furosemide (Lasix) 40 mg DAILY ORAL 10/25/19 10:00 11/24/19 09:59 10/27/19 09:06 Iron Sucrose 100 mg/Sodium Chloride 60 ml @ 240 mls/hr BEDTIME IV 10/26/19 21:00 10/30/19 21:14 10/26/19 20:46 Levothyroxine Sodium (Synthroid) 150 mcg DAILY@0630 ORAL 10/24/19 06:30 11/23/19 06:29 10/27/19 06:21 Metoprolol Tartrate (Lopressor) 25 mg Q12HR ORAL 10/27/19 11:00 11/23/19 10:59 Nitroglycerin (Ntg) 1 patch Q24H TDERMAL 10/24/19 12:30 11/23/19 12:29 10/27/19 12:15 Pantoprazole (Protonix) 40 mg EVERY 12 HOURS ORAL 10/25/19 21:00 11/24/19 20:59 10/27/19 09:06 Tamsulosin HCl (Flomax) 0.4 mg BID ORAL 10/26/19 18:00 11/23/19 20:59 10/27/19 09:06 Janes Cox MD Oct 27, 2019 15:58
[2019-10-27 16:00] VITALS: BP 120/72
--- NOTE | 2019-10-27 16:30 | NUR ---
NURSE NOTES: no bleeding noted from nose- will continue to monitor pt. and with plan of care.
--- NOTE | 2019-10-27 17:02 | NUR ---
NURSE NOTES: pt. refusing 1800 medication Flomax teaching done- explained 3X's - pt. continues to refuse medication.
--- NOTE | 2019-10-27 18:03 | NUR ---
NURSE NOTES: pt. encouraged to eat dinner- pt. refusing- explained importance of eating but pt. continues to refuse to eat food. No bleeding noted from nose- will continue to monitor pt. and with plan of care. pt. appears to be comfortable talking on phone with family.
--- NOTE | 2019-10-27 18:34 | General Progress Note ---
Assessment/Plan Problem List: (1) Sepsis ICD Codes: A41.9 - Sepsis, unspecified organism SNOMED: 69328761 (2) Hypoglycemia ICD Codes: E16.2 - Hypoglycemia, unspecified SNOMED: 512994552 (3) Elevated troponin ICD Codes: R79.89 - Other specified abnormal findings of blood chemistry SNOMED: 346331980, 369102798, 470373979 (4) Renal failure (ARF), acute on chronic ICD Codes: N17.9 - Acute kidney failure, unspecified; N18.9 - Chronic kidney disease, unspecified SNOMED: 179867193 Qualifiers: Qualified Codes: N17.9 - Acute kidney failure, unspecified; N18.3 - Chronic kidney disease, stage 3 (moderate) (5) Hypothyroid ICD Codes: E03.9 - Hypothyroidism, unspecified SNOMED: 21798350 (6) HTN (hypertension) ICD Codes: I10 - Essential (primary) hypertension SNOMED: 53905659 (7) Diabetic nephropathy ICD Codes: E11.21 - Type 2 diabetes mellitus with diabetic nephropathy SNOMED: 926127278 (8) Anemia in chronic kidney disease (CKD) ICD Codes: N18.9 - Chronic kidney disease, unspecified; D63.1 - Anemia in chronic kidney disease SNOMED: 309543585 Status: progressing Assessment/Plan: hypoglycemia improved hypothyroid sepsis no fever reviewed chart and labs improving dc planning Subjective ROS Limited/Unobtainable: Yes Allergies: Coded Allergies: No Known Allergies (Unverified , 10/07/17) Objective Last 24 Hour Vital Signs Date Time Temp Pulse Resp B/P (MAP) Pulse Ox O2 Delivery O2 Flow Rate FiO2 10/27/19 16:00 Nasal Cannula 2.0 Nasal Cannula 2.0 10/27/19 16:00 98.8 79 18 120/72 (88) 98 10/27/19 15:29 66 10/27/19 12:15 159/75 10/27/19 12:00 98.8 78 21 159/75 (103) 94 10/27/19 12:00 Nasal Cannula 2.0 Nasal Cannula 2.0 10/27/19 11:50 75 10/27/19 09:06 61 163/76 10/27/19 08:00 Nasal Cannula 2.0 Nasal Cannula 2.0 10/27/19 08:00 98.2 61 20 163/76 (105) 91 10/27/19 07:41 102 10/27/19 04:00 97.7 65 19 141/77 (98) 95 10/27/19 04:00 Nasal Cannula 2.0 Nasal Cannula 2.0 10/27/19 03:32 71 10/27/19 00:00 97.7 67 19 154/80 (104) 95 10/27/19 00:00 Nasal Cannula 2.0 Nasal Cannula 2.0 10/26/19 23:30 62 10/26/19 20:47 65 149/73 10/26/19 20:46 65 149/73 10/26/19 20:00 Nasal Cannula 2.0 Nasal Cannula 2.0 10/26/19 20:00 60 10/26/19 19:54 97.9 65 19 149/73 (98) 95 Intake and Output 10/26/19 10/27/19 19:00 07:00 Intake Total 240 ml 360 ml Output Total 2300 ml Balance -2060 ml 360 ml Intake Oral 240 ml 300 ml IV Total 60 ml Output Urine Total 2300 ml # Voids 4 # Bowel Movements 2 Laboratory Tests 10/27/19 03:30: White Blood Count 6.6, Red Blood Count 2.66L, Hemoglobin 8.6L, Hematocrit 25.6L , Mean Corpuscular Volume 96, Mean Corpuscular Hemoglobin 32.4H, Mean Corpuscular Hemoglobin Concent 33.6, Red Cell Distribution Width 12.9, Platelet Count 207, Mean Platelet Volume 6.7, Neutrophils (%) (Auto) 70.7, Lymphocytes (% ) (Auto) 10.3L, Monocytes (%) (Auto) 12.2H, Eosinophils (%) (Auto) 5.1H, Basophils (%) (Auto) 1.7, Sodium Level 144, Potassium Level 4.5, Chloride Level 111H, Carbon Dioxide Level 25, Anion Gap 8, Blood Urea Nitrogen 36H, Creatinine 2.3H, Estimat Glomerular Filtration Rate 28.8, Glucose Level 87, Calcium Level 8.4L, Phosphorus Level 3.3, Magnesium Level 1.7L, Total Bilirubin 0.7, Aspartate Amino Transf (AST/SGOT) 16, Alanine Aminotransferase (ALT/SGPT) 15, Alkaline Phosphatase 110, Troponin I 1.008H, C-Reactive Protein, Quantitative 2.1H, Pro-B-Type Natriuretic Peptide 09647C, Total Protein 6.2L, Albumin 2.9L, Globulin 3.3, Albumin/Globulin Ratio 0.9L, Carcinoembryonic Antigen [Pending] Height (Feet): 5 Height (Inches): 10.00 Weight (Pounds): 228 Abdomen: soft Oni Schilling MD Oct 27, 2019 18:34
--- NOTE | 2019-10-27 19:10 | NUR ---
NURSE NOTES: pt. remains free from nose bleed- will continue to monitor pt. and with plan of care.
--- NOTE | 2019-10-27 19:23 | Hematology/Onc Progress Note ---
Assessment/Plan Assessment/Plan Assessment and Recs: # Anemia due to underlying GI bleed -- patient presents with hematemesis before and now with barb --> as per GI eval, may need endoscopy --> has been started on ppi --> cea has been ordered --> Hgb goal >7. Transfuse prn. --> Will sign consent if necessary --> Epogen not started. IRON IV x 5 days started --> Consider octreotide gtt as per gi eval --> Medications have been reviewed --> Hgb 8.8 -->8.6 # Coagulation defect/Bleeding, multifactorial usually related to poor PO intake versus medications, in this case related to coumadin --> administer Vitamin K if patient is bleeding or FFP if the INR is >10 --> hold off on ffp unless active procedure/bleeding, first begin with vit K 10 --> mixing study as needed --> HAVE STOPPED COUMADIN --> per cards, hold off at this time, is aware of afib hx # Anemia due to folic acid deficiency/iron deficiency as well --> prior folic acid<5 --> recheck levels # Elevated troponin, rising, ?nstemi --> aware --> anticoag as per his recs # Renal failure (ARF), acute on chronic --> per renal Dr. Fisher # UTI --> abx as needed # Dvt ppx on scds now The timing of this note does not necessarily reflect the time of the patient was seen. Greatly appreciate consultation. Subjective Allergies: Coded Allergies: No Known Allergies (Unverified , 10/07/17) Subjective 10/27: awake, venous duplex negative, iv iron, nose bleed Objective Objective Current Medications Medications (Trade) Dose Ordered Sig/Leon Route PRN Reason Start Time Stop Time Status Last Admin Dose Admin Acetaminophen (Tylenol) 500 mg Q4H PRN ORAL Mild Pain/Temp > 100.5 10/24/19 04:30 11/23/19 04:29 Amlodipine Besylate (Norvasc) 5 mg Q12HR ORAL 10/25/19 21:00 11/24/19 20:59 10/27/19 09:06 Aspirin (Ecotrin) 81 mg DAILY ORAL 10/25/19 09:00 11/24/19 08:59 10/26/19 09:48 Atorvastatin Calcium (Lipitor) 80 mg BEDTIME ORAL 10/24/19 21:00 11/23/19 20:59 10/26/19 20:46 Clopidogrel Bisulfate (Plavix) 75 mg DAILY ORAL 10/25/19 09:00 11/24/19 08:59 10/25/19 09:09 Dextrose (Dextrose 50%) 25 ml Q30M PRN IV Hypoglycemia 10/24/19 05:15 11/23/19 05:14 Dextrose (Dextrose 50%) 50 ml Q30M PRN IV Hypoglycemia 10/24/19 05:15 11/23/19 05:14 Docusate Sodium (Colace) 100 mg TWICE A DAY ORAL 10/24/19 18:00 11/23/19 17:59 Finasteride (Proscar) 5 mg DAILY ORAL 10/25/19 09:00 11/24/19 08:59 10/27/19 09:06 Furosemide (Lasix) 40 mg DAILY ORAL 10/25/19 10:00 11/24/19 09:59 10/27/19 09:06 Iron Sucrose 100 mg/Sodium Chloride 60 ml @ 240 mls/hr BEDTIME IV 10/26/19 21:00 10/30/19 21:14 10/26/19 20:46 Levothyroxine Sodium (Synthroid) 150 mcg DAILY@0630 ORAL 10/24/19 06:30 11/23/19 06:29 10/27/19 06:21 Metoprolol Tartrate (Lopressor) 25 mg Q12HR ORAL 10/27/19 11:00 11/23/19 10:59 Nitroglycerin (Ntg) 1 patch Q24H TDERMAL 10/24/19 12:30 11/23/19 12:29 10/27/19 12:15 Pantoprazole (Protonix) 40 mg EVERY 12 HOURS ORAL 10/25/19 21:00 11/24/19 20:59 10/27/19 09:06 Tamsulosin HCl (Flomax) 0.4 mg BID ORAL 10/26/19 18:00 11/23/19 20:59 10/27/19 09:06 Last 24 Hour Vital Signs Date Time Temp Pulse Resp B/P (MAP) Pulse Ox O2 Delivery O2 Flow Rate FiO2 10/27/19 16:00 Nasal Cannula 2.0 Nasal Cannula 2.0 10/27/19 16:00 98.8 79 18 120/72 (88) 98 10/27/19 15:29 66 10/27/19 12:15 159/75 10/27/19 12:00 98.8 78 21 159/75 (103) 94 10/27/19 12:00 Nasal Cannula 2.0 Nasal Cannula 2.0 10/27/19 11:50 75 10/27/19 09:06 61 163/76 10/27/19 08:00 Nasal Cannula 2.0 Nasal Cannula 2.0 10/27/19 08:00 98.2 61 20 163/76 (105) 91 10/27/19 07:41 102 10/27/19 04:00 97.7 65 19 141/77 (98) 95 10/27/19 04:00 Nasal Cannula 2.0 Nasal Cannula 2.0 10/27/19 03:32 71 10/27/19 00:00 97.7 67 19 154/80 (104) 95 10/27/19 00:00 Nasal Cannula 2.0 Nasal Cannula 2.0 10/26/19 23:30 62 10/26/19 20:47 65 149/73 10/26/19 20:46 65 149/73 10/26/19 20:00 Nasal Cannula 2.0 Nasal Cannula 2.0 10/26/19 20:00 60 10/26/19 19:54 97.9 65 19 149/73 (98) 95 10/26/19 16:00 Nasal Cannula 2.0 Nasal Cannula 2.0 10/26/19 16:00 98.9 60 20 149/69 (95) 100 10/26/19 16:00 64 10/26/19 12:49 145/73 10/26/19 12:00 61 10/26/19 12:00 Nasal Cannula 2.0 Nasal Cannula 2.0 10/26/19 12:00 99.0 70 20 145/73 (97) 100 10/26/19 09:49 71 146/66 10/26/19 09:48 71 146/66 10/26/19 08:00 Nasal Cannula 2.0 Nasal Cannula 2.0 10/26/19 08:00 2.0 10/26/19 08:00 99.0 71 20 146/66 (92) 100 10/26/19 08:00 70 10/26/19 04:00 98.5 62 16 135/70 (91) 97 10/26/19 04:00 2.0 10/26/19 04:00 Nasal Cannula 2.0 Nasal Cannula 2.0 10/26/19 04:00 70 10/26/19 00:00 98.8 65 16 140/77 (98) 95 10/26/19 00:00 Nasal Cannula 2.0 Nasal Cannula 2.0 10/26/19 00:00 2.0 10/25/19 23:53 60 10/25/19 21:24 57 134/76 10/25/19 21:00 57 134/76 10/25/19 20:00 Nasal Cannula 2.0 Nasal Cannula 2.0 10/25/19 20:00 98.0 57 16 134/76 (95) 97 10/25/19 20:00 2.0 10/25/19 19:44 72 10/25/19 19:37 65 Intake and Output 10/26/19 10/27/19 19:00 07:00 Intake Total 240 ml 360 ml Output Total 2300 ml Balance -2060 ml 360 ml Intake Oral 240 ml 300 ml IV Total 60 ml Output Urine Total 2300 ml # Voids 4 # Bowel Movements 2 Labs Test 10/25/19 04:00 10/26/19 04:15 10/27/19 03:30 White Blood Count 7.9 K/UL (4.8-10.8) 6.9 K/UL (4.8-10.8) 6.6 K/UL (4.8-10.8) Red Blood Count 2.62 M/UL (4.70-6.10) 2.73 M/UL (4.70-6.10) 2.66 M/UL (4.70-6.10) Hemoglobin 8.5 G/DL (14.2-18.0) 8.8 G/DL (14.2-18.0) 8.6 G/DL (14.2-18.0) Hematocrit 25.7 % (42.0-52.0) 26.5 % (42.0-52.0) 25.6 % (42.0-52.0) Mean Corpuscular Volume 98 FL (80-99) 97 FL (80-99) 96 FL (80-99) Mean Corpuscular Hemoglobin 32.3 PG (27.0-31.0) 32.1 PG (27.0-31.0) 32.4 PG (27.0-31.0) Mean Corpuscular Hemoglobin Concent 33.0 G/DL (32.0-36.0) 33.1 G/DL (32.0-36.0) 33.6 G/DL (32.0-36.0) Red Cell Distribution Width 13.3 % (11.6-14.8) 13.1 % (11.6-14.8) 12.9 % (11.6-14.8) Platelet Count 208 K/UL (150-450) 216 K/UL (150-450) 207 K/UL (150-450) Mean Platelet Volume 6.9 FL (6.5-10.1) 7.0 FL (6.5-10.1) 6.7 FL (6.5-10.1) Neutrophils (%) (Auto) 61.6 % (45.0-75.0) 66.4 % (45.0-75.0) 70.7 % (45.0-75.0) Lymphocytes (%) (Auto) 21.8 % (20.0-45.0) 14.7 % (20.0-45.0) 10.3 % (20.0-45.0) Monocytes (%) (Auto) 10.4 % (1.0-10.0) 10.5 % (1.0-10.0) 12.2 % (1.0-10.0) Eosinophils (%) (Auto) 4.9 % (0.0-3.0) 7.1 % (0.0-3.0) 5.1 % (0.0-3.0) Basophils (%) (Auto) 1.3 % (0.0-2.0) 1.3 % (0.0-2.0) 1.7 % (0.0-2.0) Sodium Level 140 MMOL/L (136-145) 143 MMOL/L (136-145) 144 MMOL/L (136-145) Potassium Level 4.7 MMOL/L (3.5-5.1) 4.3 MMOL/L (3.5-5.1) 4.5 MMOL/L (3.5-5.1) Chloride Level 108 MMOL/L (98-107) 110 MMOL/L (98-107) 111 MMOL/L (98-107) Carbon Dioxide Level 23 MMOL/L (21-32) 21 MMOL/L (21-32) 25 MMOL/L (21-32) Anion Gap 9 mmol/L (5-15) 12 mmol/L (5-15) 8 mmol/L (5-15) Blood Urea Nitrogen 43 mg/dL (7-18) 40 mg/dL (7-18) 36 mg/dL (7-18) Creatinine 2.4 MG/DL (0.55-1.30) 2.4 MG/DL (0.55-1.30) 2.3 MG/DL (0.55-1.30) Estimat Glomerular Filtration Rate 27.4 mL/min (>60) 27.4 mL/min (>60) 28.8 mL/min (>60) Glucose Level 242 MG/DL (74-106) 95 MG/DL (74-106) 87 MG/DL (74-106) Hemoglobin A1c 5.0 % (4.3-6.0) Uric Acid 6.1 MG/DL (2.6-7.2) 6.3 MG/DL (2.6-7.2) Calcium Level 7.9 MG/DL (8.5-10.1) 8.6 MG/DL (8.5-10.1) 8.4 MG/DL (8.5-10.1) Phosphorus Level 3.8 MG/DL (2.5-4.9) 3.2 MG/DL (2.5-4.9) 3.3 MG/DL (2.5-4.9) Magnesium Level 1.5 MG/DL (1.8-2.4) 1.8 MG/DL (1.8-2.4) 1.7 MG/DL (1.8-2.4) Iron Level 36 ug/dL (50-175) Total Iron Binding Capacity 253 ug/dL (250-450) Percent Iron Saturation 14 % (15-50) Unsaturated Iron Binding 217 ug/dL (112-346) Ferritin 54 NG/ML (8-388) Total Bilirubin 0.4 MG/DL (0.2-1.0) 0.5 MG/DL (0.2-1.0) 0.7 MG/DL (0.2-1.0) Gamma Glutamyl Transpeptidase 7 U/L (5-85) Aspartate Amino Transf (AST/SGOT) 17 U/L (15-37) 19 U/L (15-37) 16 U/L (15-37) Alanine Aminotransferase (ALT/SGPT) 19 U/L (12-78) 17 U/L (12-78) 15 U/L (12-78) Alkaline Phosphatase 95 U/L (46-116) 112 U/L (46-116) 110 U/L (46-116) Troponin I 1.296 ng/mL (0.000-0.056) 1.008 ng/mL (0.000-0.056) C-Reactive Protein, Quantitative < 0.4 mg/dL (0.00-0.90) 2.1 mg/dL (0.00-0.90) Pro-B-Type Natriuretic Peptide 20499 pg/mL (0-125) 09241 pg/mL (0-125) Total Protein 6.3 G/DL (6.4-8.2) 6.9 G/DL (6.4-8.2) 6.2 G/DL (6.4-8.2) Albumin 2.7 G/DL (3.4-5.0) 3.1 G/DL (3.4-5.0) 2.9 G/DL (3.4-5.0) Globulin 3.6 g/dL 3.8 g/dL 3.3 g/dL Albumin/Globulin Ratio 0.8 (1.0-2.7) 0.8 (1.0-2.7) 0.9 (1.0-2.7) Triglycerides Level 34 MG/DL (30-150) Cholesterol Level 72 MG/DL (< 200) LDL Cholesterol 37 mg/dL (<100) HDL Cholesterol 30 MG/DL (40-60) Cholesterol/HDL Ratio 2.4 (3.3-4.4) Vitamin B12 Level 436 PG/ML (193-986) Folate 17.8 NG/ML (8.6-58.9) Height (Feet): 5 Height (Inches): 10.00 Weight (Pounds): 228 Objective PE Vitals: reviewed General Appearance: NAD + chronically ill HEENT: normocephalic, atraumatic ++ biconjunctival hemorrhage-> improved Neck: non-tender, normal alignment Respiratory/Chest: nromal breath sounds bilaterally Cardiovascular/Chest: normal peripheral pulses, normal rate Abdomen: normal bowel sounds, soft, nontender Extremities: normal range of motion, Right arm skin tear, left sided weaknness NEURO: ++ left sided weakness Nate Whyte MD Oct 27, 2019 19:23
[2019-10-27 20:00] VITALS: BP 158/73
[2019-10-27] MEDS: Iron Sucrose 100 MG in NS 55 ML IV SCH (20:12)
[2019-10-27] MEDS: Atorvastatin 80mg tab ORAL SCH (20:13)
--- NOTE | 2019-10-27 22:04 | NUR ---
NURSE NOTES: pt. monitored for nose bleed- pt. remains stable and no bleeding noted- will continue to monitor pt. and with plan of care.
--- NOTE | 2019-10-27 23:20 | NUR ---
HAND-OFF: Report given to Crystal Watts RN, pt. remains stable and no signs of distress noted. Bed side rounding done- pt. remains stable and no nose bleed noted- nurse aware to notify DR. Ludwig Whyte if pt. has nose bleed.
--- NOTE | 2019-10-27 23:30 | NUR ---
NURSE NOTES: Received report from LOU Parker Pt asleep. Easily awakned .A/OX2-3 Able to make needs known. On 2L NC. In no apparent distress. Bed in low position and call light within reach. Bed alarm and safety brakes engaged. Pt. had nose bleed during day shift. is aware..will continue to monitor pt. RT. Hand 22G , Rt. wrist 22G and RFA 20G all IVs intact and patent. 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
[2019-10-28] VITALS: BP 148/70
[2019-10-28 04:00] VITALS: BP 146/68
--- NOTE | 2019-10-28 05:48 | Hematology/Onc Progress Note ---
Assessment/Plan Assessment/Plan Assessment and Recs: # Anemia due to underlying GI bleed -- patient presents with hematemesis before and now with barb --> as per GI eval, may need endoscopy --> has been started on ppi --> cea has been ordered --> Hgb goal >7. Transfuse prn. --> Will sign consent if necessary --> Epogen not started. IRON IV x 5 days started --> Consider octreotide gtt as per gi eval --> Medications have been reviewed --> Hgb 8.8 -->8.6 # Coagulation defect/Bleeding, multifactorial usually related to poor PO intake versus medications, in this case related to coumadin --> administer Vitamin K if patient is bleeding or FFP if the INR is >10 --> hold off on ffp unless active procedure/bleeding, first begin with vit K 10 --> mixing study as needed --> HAVE STOPPED COUMADIN --> per cards, hold off at this time, is aware of afib hx # Anemia due to folic acid deficiency/iron deficiency as well --> prior folic acid<5 --> recheck levels # Elevated troponin, rising, ?nstemi --> aware --> anticoag as per his recs # Renal failure (ARF), acute on chronic --> per renal Dr. Fisher # UTI --> abx as needed # Dvt ppx on scds now The timing of this note does not necessarily reflect the time of the patient was seen. Greatly appreciate consultation. Subjective Constitutional: Denies: no symptoms, chills, fever, malaise, weakness, other HEENT: Denies: no symptoms, eye pain, blurred vision, tearing, double vision, ear pain, ear discharge, nose pain, nose congestion, throat pain, throat swelling, mouth pain, mouth swelling, other Cardiovascular: Denies: no symptoms, chest pain, edema, irregular heart rate, lightheadedness, palpitations, syncope, other Respiratory: Denies: no symptoms, cough, shortness of breath, SOB with excertion, SOB at rest, sputum, wheezing, other Gastrointestinal/Abdominal: Denies: no symptoms, abdomen distended, abdominal pain, black stools, tarry stools, blood in stool, constipated, diarrhea, difficulty swallowing, nausea, poor appetite, poor fluid intake, rectal bleeding , vomiting, other Genitourinary: Denies: no symptoms, burning, discharge, frequency, flank pain, hematuria, incontinence, pain, urgency, other Neurologic/Psychiatric: Denies: no symptoms, anxiety, depressed, emotional problems, headache, numbness, paresthesia, pre-existing deficit, seizure, tingling, tremors, weakness, other Endocrine: Denies: no symptoms, excessive sweating, flushing, intolerance to cold, intolerance to heat, increased hunger, increased thirst, increased urine, unexplained weight gain, unexplained weight loss, other Allergies: Coded Allergies: No Known Allergies (Unverified , 10/07/17) Subjective 10/27: awake, venous duplex negative, iv iron, nose bleed 10/28: is awake, alert on 2l flow, no bleeding, coags noted Objective Objective Current Medications Medications (Trade) Dose Ordered Sig/Leon Route PRN Reason Start Time Stop Time Status Last Admin Dose Admin Acetaminophen (Tylenol) 500 mg Q4H PRN ORAL Mild Pain/Temp > 100.5 10/24/19 04:30 11/23/19 04:29 Amlodipine Besylate (Norvasc) 5 mg Q12HR ORAL 10/25/19 21:00 11/24/19 20:59 10/27/19 21:23 Aspirin (Ecotrin) 81 mg DAILY ORAL 10/25/19 09:00 11/24/19 08:59 10/26/19 09:48 Atorvastatin Calcium (Lipitor) 80 mg BEDTIME ORAL 10/24/19 21:00 11/23/19 20:59 10/27/19 20:13 Clopidogrel Bisulfate (Plavix) 75 mg DAILY ORAL 10/25/19 09:00 11/24/19 08:59 10/25/19 09:09 Dextrose (Dextrose 50%) 25 ml Q30M PRN IV Hypoglycemia 10/24/19 05:15 11/23/19 05:14 Dextrose (Dextrose 50%) 50 ml Q30M PRN IV Hypoglycemia 10/24/19 05:15 11/23/19 05:14 Docusate Sodium (Colace) 100 mg TWICE A DAY ORAL 10/24/19 18:00 11/23/19 17:59 Finasteride (Proscar) 5 mg DAILY ORAL 10/25/19 09:00 11/24/19 08:59 10/27/19 09:06 Furosemide (Lasix) 40 mg DAILY ORAL 10/25/19 10:00 11/24/19 09:59 10/27/19 09:06 Iron Sucrose 100 mg/Sodium Chloride 60 ml @ 240 mls/hr BEDTIME IV 10/26/19 21:00 10/30/19 21:14 10/27/19 20:12 Levothyroxine Sodium (Synthroid) 150 mcg DAILY@0630 ORAL 10/24/19 06:30 11/23/19 06:29 10/28/19 05:21 Metoprolol Tartrate (Lopressor) 25 mg Q12HR ORAL 10/27/19 11:00 11/23/19 10:59 10/27/19 20:13 Nitroglycerin (Ntg) 1 patch Q24H TDERMAL 10/24/19 12:30 11/23/19 12:29 10/27/19 12:15 Pantoprazole (Protonix) 40 mg EVERY 12 HOURS ORAL 10/25/19 21:00 11/24/19 20:59 10/27/19 20:13 Tamsulosin HCl (Flomax) 0.4 mg BID ORAL 10/26/19 18:00 11/23/19 20:59 10/27/19 09:06 Last 24 Hour Vital Signs Date Time Temp Pulse Resp B/P (MAP) Pulse Ox O2 Delivery O2 Flow Rate FiO2 10/28/19 04:00 99.4 68 20 146/68 (94) 93 10/28/19 04:00 Nasal Cannula 2.0 Nasal Cannula 2.0 10/28/19 03:38 64 10/28/19 00:00 Nasal Cannula 2.0 Nasal Cannula 2.0 10/28/19 00:00 63 10/28/19 00:00 98.2 69 20 148/70 (96) 94 10/27/19 21:23 65 149/69 10/27/19 20:13 67 158/73 10/27/19 20:00 98.8 67 22 158/73 (101) 96 10/27/19 20:00 Nasal Cannula 2.0 Nasal Cannula 2.0 10/27/19 19:05 74 10/27/19 16:00 Nasal Cannula 2.0 Nasal Cannula 2.0 10/27/19 16:00 98.8 79 18 120/72 (88) 98 2/10/20 15:29 66 10/27/19 12:15 159/75 10/27/19 12:00 98.8 78 21 159/75 (103) 94 10/27/19 12:00 Nasal Cannula 2.0 Nasal Cannula 2.0 10/27/19 11:50 75 10/27/19 09:06 61 163/76 10/27/19 08:00 Nasal Cannula 2.0 Nasal Cannula 2.0 10/27/19 08:00 98.2 61 20 163/76 (105) 91 10/27/19 07:41 102 10/27/19 04:00 97.7 65 19 141/77 (98) 95 10/27/19 04:00 Nasal Cannula 2.0 Nasal Cannula 2.0 10/27/19 03:32 71 10/27/19 00:00 97.7 67 19 154/80 (104) 95 10/27/19 00:00 Nasal Cannula 2.0 Nasal Cannula 2.0 10/26/19 23:30 62 10/26/19 20:47 65 149/73 10/26/19 20:46 65 149/73 10/26/19 20:00 Nasal Cannula 2.0 Nasal Cannula 2.0 10/26/19 20:00 60 10/26/19 19:54 97.9 65 19 149/73 (98) 95 10/26/19 16:00 Nasal Cannula 2.0 Nasal Cannula 2.0 10/26/19 16:00 98.9 60 20 149/69 (95) 100 10/26/19 16:00 64 10/26/19 12:49 145/73 10/26/19 12:00 61 10/26/19 12:00 Nasal Cannula 2.0 Nasal Cannula 2.0 10/26/19 12:00 99.0 70 20 145/73 (97) 100 10/26/19 09:49 71 146/66 10/26/19 09:48 71 146/66 10/26/19 08:00 Nasal Cannula 2.0 Nasal Cannula 2.0 10/26/19 08:00 2.0 10/26/19 08:00 99.0 71 20 146/66 (92) 100 10/26/19 08:00 70 Intake and Output 10/27/19 10/28/19 19:00 07:00 Intake Total 60 ml Output Total 400 ml Balance -400 ml 60 ml IV Total 60 ml Output Urine Total 400 ml # Voids 2 1 # Bowel Movements 1 1 Labs Test 10/26/19 04:15 10/27/19 03:30 White Blood Count 6.9 K/UL (4.8-10.8) 6.6 K/UL (4.8-10.8) Red Blood Count 2.73 M/UL (4.70-6.10) 2.66 M/UL (4.70-6.10) Hemoglobin 8.8 G/DL (14.2-18.0) 8.6 G/DL (14.2-18.0) Hematocrit 26.5 % (42.0-52.0) 25.6 % (42.0-52.0) Mean Corpuscular Volume 97 FL (80-99) 96 FL (80-99) Mean Corpuscular Hemoglobin 32.1 PG (27.0-31.0) 32.4 PG (27.0-31.0) Mean Corpuscular Hemoglobin Concent 33.1 G/DL (32.0-36.0) 33.6 G/DL (32.0-36.0) Red Cell Distribution Width 13.1 % (11.6-14.8) 12.9 % (11.6-14.8) Platelet Count 216 K/UL (150-450) 207 K/UL (150-450) Mean Platelet Volume 7.0 FL (6.5-10.1) 6.7 FL (6.5-10.1) Neutrophils (%) (Auto) 66.4 % (45.0-75.0) 70.7 % (45.0-75.0) Lymphocytes (%) (Auto) 14.7 % (20.0-45.0) 10.3 % (20.0-45.0) Monocytes (%) (Auto) 10.5 % (1.0-10.0) 12.2 % (1.0-10.0) Eosinophils (%) (Auto) 7.1 % (0.0-3.0) 5.1 % (0.0-3.0) Basophils (%) (Auto) 1.3 % (0.0-2.0) 1.7 % (0.0-2.0) Sodium Level 143 MMOL/L (136-145) 144 MMOL/L (136-145) Potassium Level 4.3 MMOL/L (3.5-5.1) 4.5 MMOL/L (3.5-5.1) Chloride Level 110 MMOL/L (98-107) 111 MMOL/L (98-107) Carbon Dioxide Level 21 MMOL/L (21-32) 25 MMOL/L (21-32) Anion Gap 12 mmol/L (5-15) 8 mmol/L (5-15) Blood Urea Nitrogen 40 mg/dL (7-18) 36 mg/dL (7-18) Creatinine 2.4 MG/DL (0.55-1.30) 2.3 MG/DL (0.55-1.30) Estimat Glomerular Filtration Rate 27.4 mL/min (>60) 28.8 mL/min (>60) Glucose Level 95 MG/DL (74-106) 87 MG/DL (74-106) Uric Acid 6.3 MG/DL (2.6-7.2) Calcium Level 8.6 MG/DL (8.5-10.1) 8.4 MG/DL (8.5-10.1) Phosphorus Level 3.2 MG/DL (2.5-4.9) 3.3 MG/DL (2.5-4.9) Magnesium Level 1.8 MG/DL (1.8-2.4) 1.7 MG/DL (1.8-2.4) Total Bilirubin 0.5 MG/DL (0.2-1.0) 0.7 MG/DL (0.2-1.0) Aspartate Amino Transf (AST/SGOT) 19 U/L (15-37) 16 U/L (15-37) Alanine Aminotransferase (ALT/SGPT) 17 U/L (12-78) 15 U/L (12-78) Alkaline Phosphatase 112 U/L (46-116) 110 U/L (46-116) Total Protein 6.9 G/DL (6.4-8.2) 6.2 G/DL (6.4-8.2) Albumin 3.1 G/DL (3.4-5.0) 2.9 G/DL (3.4-5.0) Globulin 3.8 g/dL 3.3 g/dL Albumin/Globulin Ratio 0.8 (1.0-2.7) 0.9 (1.0-2.7) Troponin I 1.008 ng/mL (0.000-0.056) C-Reactive Protein, Quantitative 2.1 mg/dL (0.00-0.90) Pro-B-Type Natriuretic Peptide 35438 pg/mL (0-125) Height (Feet): 5 Height (Inches): 10.00 Weight (Pounds): 228 Objective PE Vitals: reviewed General Appearance: NAD + chronically ill HEENT: normocephalic, atraumatic ++ biconjunctival hemorrhage-> improved Neck: non-tender, normal alignment Respiratory/Chest: nromal breath sounds bilaterally Cardiovascular/Chest: normal peripheral pulses, normal rate Abdomen: normal bowel sounds, soft, nontender Extremities: normal range of motion, Right arm skin tear, left sided weaknness NEURO: ++ left sided weakness Nate Whyte MD Oct 28, 2019 05:48
--- NOTE | 2019-10-28 06:48 | General Progress Note ---
Assessment/Plan Problem List: (1) Hypothyroid ICD Codes: E03.9 - Hypothyroidism, unspecified SNOMED: 63598530 (2) HTN (hypertension) ICD Codes: I10 - Essential (primary) hypertension SNOMED: 33250345 (3) Diabetic nephropathy ICD Codes: E11.21 - Type 2 diabetes mellitus with diabetic nephropathy SNOMED: 780250523 (4) Hypoglycemia ICD Codes: E16.2 - Hypoglycemia, unspecified SNOMED: 875254709 (5) Renal failure (ARF), acute on chronic ICD Codes: N17.9 - Acute kidney failure, unspecified; N18.9 - Chronic kidney disease, unspecified SNOMED: 528989601 Qualifiers: Qualified Codes: N17.9 - Acute kidney failure, unspecified; N18.3 - Chronic kidney disease, stage 3 (moderate) Status: progressing Assessment/Plan: continue LT4 150 mcg daily continue glucose monitoring no need for scheduled diabetic medications hypoglycemia protocol in order Subjective Allergies: Coded Allergies: No Known Allergies (Unverified , 10/07/17) All Systems: reviewed and negative except above Subjective events noted interval notes reviewed glucose values are stable without hypoglycemia Item Value Date Time Bedside Blood Glucose 75 mg/dl 10/28/19 0400 Bedside Blood Glucose 116 mg/dl 10/27/19 2000 Bedside Blood Glucose 141 mg/dl H 10/27/19 1600 Bedside Blood Glucose 163 mg/dl H 10/27/19 1200 Bedside Blood Glucose 98 mg/dl 10/27/19 0800 Bedside Blood Glucose 89 mg/dl 10/27/19 0400 Bedside Blood Glucose 90 mg/dl 10/27/19 0000 Objective Last 24 Hour Vital Signs Date Time Temp Pulse Resp B/P (MAP) Pulse Ox O2 Delivery O2 Flow Rate FiO2 10/28/19 04:00 99.4 68 20 146/68 (94) 93 10/28/19 04:00 Nasal Cannula 2.0 Nasal Cannula 2.0 10/28/19 03:38 64 10/28/19 00:00 Nasal Cannula 2.0 Nasal Cannula 2.0 10/28/19 00:00 63 10/28/19 00:00 98.2 69 20 148/70 (96) 94 10/27/19 21:23 65 149/69 10/27/19 20:13 67 158/73 10/27/19 20:00 98.8 67 22 158/73 (101) 96 10/27/19 20:00 Nasal Cannula 2.0 Nasal Cannula 2.0 10/27/19 19:05 74 10/27/19 16:00 Nasal Cannula 2.0 Nasal Cannula 2.0 10/27/19 16:00 98.8 79 18 120/72 (88) 98 10/27/19 15:29 66 10/27/19 12:15 159/75 10/27/19 12:00 98.8 78 21 159/75 (103) 94 10/27/19 12:00 Nasal Cannula 2.0 Nasal Cannula 2.0 10/27/19 11:50 75 10/27/19 09:06 61 163/76 10/27/19 08:00 Nasal Cannula 2.0 Nasal Cannula 2.0 10/27/19 08:00 98.2 61 20 163/76 (105) 91 10/27/19 07:41 102 Intake and Output 10/27/19 10/28/19 19:00 07:00 Intake Total 60 ml Output Total 400 ml 300 ml Balance -400 ml -240 ml IV Total 60 ml Output Urine Total 400 ml 300 ml # Voids 2 2 # Bowel Movements 1 1 Height (Feet): 5 Height (Inches): 10.00 Weight (Pounds): 228 General Appearance: no apparent distress Neck: normal alignment Cardiovascular: normal rate Respiratory/Chest: lungs clear Abdomen: normal bowel sounds Objective Current Medications Medications (Trade) Dose Ordered Sig/Leon Route PRN Reason Start Time Stop Time Status Last Admin Dose Admin Acetaminophen (Tylenol) 500 mg Q4H PRN ORAL Mild Pain/Temp > 100.5 10/24/19 04:30 11/23/19 04:29 Amlodipine Besylate (Norvasc) 5 mg Q12HR ORAL 10/25/19 21:00 11/24/19 20:59 10/27/19 21:23 Aspirin (Ecotrin) 81 mg DAILY ORAL 10/25/19 09:00 11/24/19 08:59 10/26/19 09:48 Atorvastatin Calcium (Lipitor) 80 mg BEDTIME ORAL 10/24/19 21:00 11/23/19 20:59 10/27/19 20:13 Clopidogrel Bisulfate (Plavix) 75 mg DAILY ORAL 10/25/19 09:00 11/24/19 08:59 10/25/19 09:09 Dextrose (Dextrose 50%) 25 ml Q30M PRN IV Hypoglycemia 10/24/19 05:15 11/23/19 05:14 Dextrose (Dextrose 50%) 50 ml Q30M PRN IV Hypoglycemia 10/24/19 05:15 11/23/19 05:14 Docusate Sodium (Colace) 100 mg TWICE A DAY ORAL 10/24/19 18:00 11/23/19 17:59 Finasteride (Proscar) 5 mg DAILY ORAL 10/25/19 09:00 11/24/19 08:59 10/27/19 09:06 Furosemide (Lasix) 40 mg DAILY ORAL 10/25/19 10:00 11/24/19 09:59 10/27/19 09:06 Iron Sucrose 100 mg/Sodium Chloride 60 ml @ 240 mls/hr BEDTIME IV 10/26/19 21:00 10/30/19 21:14 10/27/19 20:12 Levothyroxine Sodium (Synthroid) 150 mcg DAILY@0630 ORAL 10/24/19 06:30 11/23/19 06:29 10/28/19 05:21 Metoprolol Tartrate (Lopressor) 25 mg Q12HR ORAL 10/27/19 11:00 11/23/19 10:59 10/27/19 20:13 Nitroglycerin (Ntg) 1 patch Q24H TDERMAL 10/24/19 12:30 11/23/19 12:29 10/27/19 12:15 Pantoprazole (Protonix) 40 mg EVERY 12 HOURS ORAL 10/25/19 21:00 11/24/19 20:59 10/27/19 20:13 Tamsulosin HCl (Flomax) 0.4 mg BID ORAL 10/26/19 18:00 11/23/19 20:59 10/27/19 09:06 Aureliano Estrada MD Oct 28, 2019 06:48
--- NOTE | 2019-10-28 07:15 | NUR ---
NURSE NOTES: Received report from Mary Ann Arce RN. Patient awake in bed, alert and oriented x 2, able to answer simple questions. Receiving O2 via nasal cannula @ 2L/min, respirations even and unlabored. Right forearm 22g saline lock patent and asymptomatic. Bed locked in lowest position with padded side rails up x 3. All needs attended to. Call light within reach. Will continue to monitor.
[2019-10-28 08:00] VITALS: BP 142/73
[2019-10-28] MEDS: Docusate 100mg cap ORAL SCH ×2 (09:00→18:37)
[2019-10-28] MEDS: Aspirin EC 81mg tab ORAL SCH (09:00)
[2019-10-28] MEDS: Tamsulosin 0.4mg cap ORAL SCH ×2 (09:02→18:37)
[2019-10-28] MEDS: Furosemide 40mg tab ORAL SCH (09:02)
--- NOTE | 2019-10-28 09:02 | General Progress Note ---
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 D/w Dr. Hanson and he concurred. Subjective Date patient seen: Oct 29, 2019 Time patient seen: 08:30 - am Allergies: Coded Allergies: No Known Allergies (Unverified , 10/07/17) Subjective REVIEW OF SYSTEMS: Denies rash, fever, chills, sweating, dizziness, drowsiness, blurred vision, sore throat, or change in weight. No shortness of breath or chest pain. No nausea, vomiting, diarrhea, or blood in the stool or urine. No bowel or bladder incontinence. No dysuria. SUBJECTIVE: Patient denies pain at this time. He has been in bed and showing no signs of distress. Smiles at time and is comfortable. Objective Last 24 Hour Vital Signs Date Time Temp Pulse Resp B/P (MAP) Pulse Ox O2 Delivery O2 Flow Rate FiO2 10/28/19 08:00 99.1 65 20 142/73 (96) 97 10/28/19 04:00 99.4 68 20 146/68 (94) 93 10/28/19 04:00 Nasal Cannula 2.0 Nasal Cannula 2.0 10/28/19 03:38 64 10/28/19 00:00 Nasal Cannula 2.0 Nasal Cannula 2.0 10/28/19 00:00 63 10/28/19 00:00 98.2 69 20 148/70 (96) 94 10/27/19 21:23 65 149/69 10/27/19 20:13 67 158/73 10/27/19 20:00 98.8 67 22 158/73 (101) 96 10/27/19 20:00 Nasal Cannula 2.0 Nasal Cannula 2.0 10/27/19 19:05 74 10/27/19 16:00 Nasal Cannula 2.0 Nasal Cannula 2.0 10/27/19 16:00 98.8 79 18 120/72 (88) 98 10/27/19 15:29 66 10/27/19 12:15 159/75 10/27/19 12:00 98.8 78 21 159/75 (103) 94 10/27/19 12:00 Nasal Cannula 2.0 Nasal Cannula 2.0 10/27/19 11:50 75 10/27/19 09:06 61 163/76 Intake and Output 10/27/19 10/28/19 19:00 07:00 Intake Total 60 ml Output Total 400 ml 300 ml Balance -400 ml -240 ml IV Total 60 ml Output Urine Total 400 ml 300 ml # Voids 2 2 # Bowel Movements 1 1 Height (Feet): 5 Height (Inches): 10.00 Weight (Pounds): 228 Objective GENERAL: Alert, awake, and oriented. LUNGS: Decreased breath sounds bilaterally. HEART: S1 and S2 regular. ABDOMEN: Soft, nontender. EXTREMITIES: No cyanosis. No clubbing. NEURO: No changes. Warren Torres Oct 28, 2019 09:02
--- NOTE | 2019-10-28 10:13 | NUR ---
NURSE NOTES: Dr. Whyte notified of patient having severe epistaxis. Plavix and aspirin held.
[2019-10-28 10:33] LABS: BASOPHILS % (AUTO) 0.7 % (0.0-2.0); EOSINOPHILS % (AUTO) 3.4 % (0.0-3.0); HEMATOCRIT 26.8 % (42.0-52.0); HEMOGLOBIN 8.9 G/DL (14.2-18.0); LYMPHOCYTES % (AUTO) 14.3 % (20.0-45.0); MEAN CORPUSCULAR VOLUME 96 FL (80-99); MONOCYTES % (AUTO) 12.5 % (1.0-10.0); PLATELET COUNT 211 K/UL (150-450); RED BLOOD COUNT 2.79 M/UL (4.70-6.10); WHITE BLOOD COUNT 7.3 K/UL (4.8-10.8)
[2019-10-28 10:41] LABS: ANION GAP 8 mmol/L (5-15); BLOOD UREA NITROGEN 35 mg/dL (7-18); CALCIUM 8.3 MG/DL (8.5-10.1); CARBON DIOXIDE 24 MMOL/L (21-32); CHLORIDE 107 MMOL/L (98-107); CREATININE 2.4 MG/DL (0.55-1.30); POTASSIUM 4.2 MMOL/L (3.5-5.1); SODIUM 139 MMOL/L (136-145)
[2019-10-28 10:50] LABS: INR 1.2 (0.9-1.1)
--- NOTE | 2019-10-28 11:33 | Cardiac Electrophysiology PN ---
Assessment/Plan Assessment/Plan 1. NSTEMI. Troponin is 1.8. Down to 0.86 and no CP. ECG no acute ischemia and Echo Nl EF. Likely due to renal failure. Has history of OK in July 2019 with troponin critical of more than 24. EF of 60%. Hold aspirin and plavix for incessant nose bleed Already on Lopressor 25 bid, and statin. 2. Questionable atrial fibrillation or DVT, currently remain in sinus rhythm. He used to be on anticoagulation. 3. Hypothyroidism, on Synthroid. 4. History of CVA with left hemiplegia.On Plavix 5. Nose bleed. FU DR Kevin KIMBLE RN Subjective Subjective In SR. Still bleeding from Left nostril. Aspirin and Plavix still held Objective Last 24 Hour Vital Signs Date Time Temp Pulse Resp B/P (MAP) Pulse Ox O2 Delivery O2 Flow Rate FiO2 10/28/19 09:02 65 142/73 10/28/19 09:02 65 142/73 10/28/19 08:00 Nasal Cannula 2.0 Nasal Cannula 2.0 10/28/19 08:00 99.1 65 20 142/73 (96) 97 10/28/19 07:40 63 10/28/19 04:00 99.4 68 20 146/68 (94) 93 10/28/19 04:00 Nasal Cannula 2.0 Nasal Cannula 2.0 10/28/19 03:38 64 10/28/19 00:00 Nasal Cannula 2.0 Nasal Cannula 2.0 10/28/19 00:00 63 10/28/19 00:00 98.2 69 20 148/70 (96) 94 10/27/19 21:23 65 149/69 10/27/19 20:13 67 158/73 10/27/19 20:00 98.8 67 22 158/73 (101) 96 10/27/19 20:00 Nasal Cannula 2.0 Nasal Cannula 2.0 10/27/19 19:05 74 10/27/19 16:00 Nasal Cannula 2.0 Nasal Cannula 2.0 10/27/19 16:00 98.8 79 18 120/72 (88) 98 10/27/19 15:29 66 10/27/19 12:15 159/75 10/27/19 12:00 98.8 78 21 159/75 (103) 94 10/27/19 12:00 Nasal Cannula 2.0 Nasal Cannula 2.0 10/27/19 11:50 75 Intake and Output 10/27/19 10/28/19 19:00 07:00 Intake Total 60 ml Output Total 400 ml 300 ml Balance -400 ml -240 ml IV Total 60 ml Output Urine Total 400 ml 300 ml # Voids 2 2 # Bowel Movements 1 1 Laboratory Tests Test 10/28/19 09:05 10/28/19 09:35 White Blood Count 7.3 K/UL (4.8-10.8) Red Blood Count 2.79 M/UL (4.70-6.10) L Hemoglobin 8.9 G/DL (14.2-18.0) L Hematocrit 26.8 % (42.0-52.0) L Mean Corpuscular Volume 96 FL (80-99) Mean Corpuscular Hemoglobin 32.0 PG (27.0-31.0) H Mean Corpuscular Hemoglobin Concent 33.3 G/DL (32.0-36.0) Red Cell Distribution Width 13.0 % (11.6-14.8) Platelet Count 211 K/UL (150-450) Mean Platelet Volume 6.7 FL (6.5-10.1) Neutrophils (%) (Auto) 69.0 % (45.0-75.0) Lymphocytes (%) (Auto) 14.3 % (20.0-45.0) L Monocytes (%) (Auto) 12.5 % (1.0-10.0) H Eosinophils (%) (Auto) 3.4 % (0.0-3.0) H Basophils (%) (Auto) 0.7 % (0.0-2.0) Prothrombin Time 12.2 SEC (9.30-11.50) H Prothromb Time International Ratio 1.2 (0.9-1.1) H Sodium Level 139 MMOL/L (136-145) Potassium Level 4.2 MMOL/L (3.5-5.1) Chloride Level 107 MMOL/L (98-107) Carbon Dioxide Level 24 MMOL/L (21-32) Anion Gap 8 mmol/L (5-15) Blood Urea Nitrogen 35 mg/dL (7-18) H Creatinine 2.4 MG/DL (0.55-1.30) H Estimat Glomerular Filtration Rate 27.4 mL/min (>60) Glucose Level 119 MG/DL (74-106) H Calcium Level 8.3 MG/DL (8.5-10.1) L Troponin I 0.863 ng/mL (0.000-0.056) Objective HEAD AND NECK: No JVD.Left nostril bleeding LUNGS: Clear. CARDIOVASCULAR: Regular S1 and S2 with no gallop. ABDOMEN: Soft. EXTREMITIES: The patient has left hemiplegia with contraction of left arm. Castillo Bazan MD Oct 28, 2019 11:33
--- NOTE | 2019-10-28 11:40 | Pulmonology Progress Note ---
Assessment/Plan Assessment/Plan IMPRESSION: 1. Mild pulmonary vascular congestion. 2. Hypertension. 3. Diabetes mellitus. 4. Previous CVA. 5. Hypoglycemia. 6. Hypoxemia. 7. Epistaxis DISCUSSION: Continue low flow O2 Continue diuresis OK to dc back to snf, once epistaxis resolves. Janes Cox M.D. Subjective Interval Events: Epistaxis noted Constitutional: Reports: no symptoms HEENT: Repors: no symptoms Respiratory: Reports: no symptoms Cardiovascular: Reports: no symptoms Gastrointestinal/Abdominal: Reports: no symptoms Genitourinary: Reports: no symptoms Allergies: Coded Allergies: No Known Allergies (Unverified , 10/07/17) Objective Last 24 Hour Vital Signs Date Time Temp Pulse Resp B/P (MAP) Pulse Ox O2 Delivery O2 Flow Rate FiO2 10/28/19 09:02 65 142/73 10/28/19 09:02 65 142/73 10/28/19 08:00 Nasal Cannula 2.0 Nasal Cannula 2.0 10/28/19 08:00 99.1 65 20 142/73 (96) 97 10/28/19 07:40 63 10/28/19 04:00 99.4 68 20 146/68 (94) 93 10/28/19 04:00 Nasal Cannula 2.0 Nasal Cannula 2.0 10/28/19 03:38 64 10/28/19 00:00 Nasal Cannula 2.0 Nasal Cannula 2.0 10/28/19 00:00 63 10/28/19 00:00 98.2 69 20 148/70 (96) 94 10/27/19 21:23 65 149/69 10/27/19 20:13 67 158/73 10/27/19 20:00 98.8 67 22 158/73 (101) 96 10/27/19 20:00 Nasal Cannula 2.0 Nasal Cannula 2.0 10/27/19 19:05 74 10/27/19 16:00 Nasal Cannula 2.0 Nasal Cannula 2.0 10/27/19 16:00 98.8 79 18 120/72 (88) 98 10/27/19 15:29 66 10/27/19 12:15 159/75 10/27/19 12:00 98.8 78 21 159/75 (103) 94 10/27/19 12:00 Nasal Cannula 2.0 Nasal Cannula 2.0 10/27/19 11:50 75 Intake and Output 10/27/19 10/28/19 19:00 07:00 Intake Total 60 ml Output Total 400 ml 300 ml Balance -400 ml -240 ml IV Total 60 ml Output Urine Total 400 ml 300 ml # Voids 2 2 # Bowel Movements 1 1 General Appearance: no acute distress HEENT: normocephalic Respiratory/Chest: chest wall non-tender, lungs clear Cardiovascular: normal peripheral pulses, normal rate Abdomen: normal bowel sounds Laboratory Tests 10/28/19 09:05: White Blood Count 7.3, Red Blood Count 2.79L, Hemoglobin 8.9L, Hematocrit 26.8L , Mean Corpuscular Volume 96, Mean Corpuscular Hemoglobin 32.0H, Mean Corpuscular Hemoglobin Concent 33.3, Red Cell Distribution Width 13.0, Platelet Count 211, Mean Platelet Volume 6.7, Neutrophils (%) (Auto) 69.0, Lymphocytes (% ) (Auto) 14.3L, Monocytes (%) (Auto) 12.5H, Eosinophils (%) (Auto) 3.4H, Basophils (%) (Auto) 0.7, Prothrombin Time 12.2H, Prothromb Time International Ratio 1.2H, Sodium Level 139, Potassium Level 4.2, Chloride Level 107, Carbon Dioxide Level 24, Anion Gap 8, Blood Urea Nitrogen 35H, Creatinine 2.4H, Estimat Glomerular Filtration Rate 27.4, Glucose Level 119H, Calcium Level 8.3L 10/28/19 09:35: Troponin I 0.863H Current Medications Medications (Trade) Dose Ordered Sig/Leon Route PRN Reason Start Time Stop Time Status Last Admin Dose Admin Acetaminophen (Tylenol) 500 mg Q4H PRN ORAL Mild Pain/Temp > 100.5 10/24/19 04:30 11/23/19 04:29 Amlodipine Besylate (Norvasc) 5 mg Q12HR ORAL 10/25/19 21:00 11/24/19 20:59 10/28/19 09:02 Aspirin (Ecotrin) 81 mg DAILY ORAL 10/25/19 09:00 11/24/19 08:59 2/9/20 09:48 Atorvastatin Calcium (Lipitor) 80 mg BEDTIME ORAL 10/24/19 21:00 11/23/19 20:59 10/27/19 20:13 Clopidogrel Bisulfate (Plavix) 75 mg DAILY ORAL 10/25/19 09:00 11/24/19 08:59 10/25/19 09:09 Dextrose (Dextrose 50%) 25 ml Q30M PRN IV Hypoglycemia 10/24/19 05:15 11/23/19 05:14 Dextrose (Dextrose 50%) 50 ml Q30M PRN IV Hypoglycemia 10/24/19 05:15 11/23/19 05:14 Docusate Sodium (Colace) 100 mg TWICE A DAY ORAL 10/24/19 18:00 11/23/19 17:59 Finasteride (Proscar) 5 mg DAILY ORAL 10/25/19 09:00 11/24/19 08:59 10/28/19 09:02 Furosemide (Lasix) 40 mg DAILY ORAL 10/25/19 10:00 11/24/19 09:59 10/28/19 09:02 Iron Sucrose 100 mg/Sodium Chloride 60 ml @ 240 mls/hr BEDTIME IV 10/26/19 21:00 10/30/19 21:14 10/27/19 20:12 Levothyroxine Sodium (Synthroid) 150 mcg DAILY@0630 ORAL 10/24/19 06:30 11/23/19 06:29 10/28/19 05:21 Metoprolol Tartrate (Lopressor) 25 mg Q12HR ORAL 10/27/19 11:00 11/23/19 10:59 10/28/19 09:02 Nitroglycerin (Ntg) 1 patch Q24H TDERMAL 10/24/19 12:30 11/23/19 12:29 10/27/19 12:15 Pantoprazole (Protonix) 40 mg EVERY 12 HOURS ORAL 10/25/19 21:00 11/24/19 20:59 10/28/19 09:02 Tamsulosin HCl (Flomax) 0.4 mg BID ORAL 10/26/19 18:00 11/23/19 20:59 10/28/19 09:02 Janes Cox MD Oct 28, 2019 11:40
[2019-10-28 12:00] VITALS: BP 133/60
[2019-10-28] MEDS: Nitroglycerin Patch 0.4mg TDERMAL SCH (12:31)
--- NOTE | 2019-10-28 14:33 | NUR ---
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 99.8 HR 60 RR 21 B/P 133/60 2L NC O2 SAT @ 98% BUN 35 CR 2.4 TROP 0.863 IS: IRON IV LOPRESSOR PO SYNTHROID PO LASIX PO STEP DOWN STATUS
--- NOTE | 2019-10-28 15:01 | Nephrology Progress Note ---
Assessment/Plan Problem List: (1) Renal failure (ARF), acute on chronic Assessment: Cr stable (2) Elevated troponin (3) Hypoglycemia (4) Hypothyroid (5) HTN (hypertension) (6) Diabetic nephropathy (7) Anemia in chronic kidney disease (CKD) Assessment Urinary retention Renal failure (ARF), acute on chronic Anemia: s/p GI Bleed on anticoagulation h/o Hypertension Elevated troponin h/o Hypothyroid DM- Hypoglycemia on presentation h/o UTI Plan DC Kamara BP management IV Iron watch HR 2D Echo NOTED Kidney MARCO A NOTED Avoid nephrotoxics antibiotics Per orders / per consultants Subjective ROS Limited/Unobtainable: No Constitutional: Reports: malaise Objective Objective Last 24 Hour Vital Signs Date Time Temp Pulse Resp B/P (MAP) Pulse Ox O2 Delivery O2 Flow Rate FiO2 10/28/19 12:31 133/60 10/28/19 12:00 Nasal Cannula 2.0 Nasal Cannula 2.0 10/28/19 12:00 99.8 60 21 133/60 (84) 93 10/28/19 11:41 63 10/28/19 09:02 65 142/73 10/28/19 09:02 65 142/73 10/28/19 08:00 Nasal Cannula 2.0 Nasal Cannula 2.0 10/28/19 08:00 99.1 65 20 142/73 (96) 97 10/28/19 07:40 63 10/28/19 04:00 99.4 68 20 146/68 (94) 93 10/28/19 04:00 Nasal Cannula 2.0 Nasal Cannula 2.0 10/28/19 03:38 64 10/28/19 00:00 Nasal Cannula 2.0 Nasal Cannula 2.0 10/28/19 00:00 63 10/28/19 00:00 98.2 69 20 148/70 (96) 94 10/27/19 21:23 65 149/69 10/27/19 20:13 67 158/73 10/27/19 20:00 98.8 67 22 158/73 (101) 96 10/27/19 20:00 Nasal Cannula 2.0 Nasal Cannula 2.0 10/27/19 19:05 74 10/27/19 16:00 Nasal Cannula 2.0 Nasal Cannula 2.0 10/27/19 16:00 98.8 79 18 120/72 (88) 98 10/27/19 15:29 66 Intake and Output 10/27/19 10/28/19 19:00 07:00 Intake Total 60 ml Output Total 400 ml 300 ml Balance -400 ml -240 ml IV Total 60 ml Output Urine Total 400 ml 300 ml # Voids 2 2 # Bowel Movements 1 1 Laboratory Tests 10/28/19 09:05: White Blood Count 7.3, Red Blood Count 2.79L, Hemoglobin 8.9L, Hematocrit 26.8L , Mean Corpuscular Volume 96, Mean Corpuscular Hemoglobin 32.0H, Mean Corpuscular Hemoglobin Concent 33.3, Red Cell Distribution Width 13.0, Platelet Count 211, Mean Platelet Volume 6.7, Neutrophils (%) (Auto) 69.0, Lymphocytes (% ) (Auto) 14.3L, Monocytes (%) (Auto) 12.5H, Eosinophils (%) (Auto) 3.4H, Basophils (%) (Auto) 0.7, Prothrombin Time 12.2H, Prothromb Time International Ratio 1.2H, Sodium Level 139, Potassium Level 4.2, Chloride Level 107, Carbon Dioxide Level 24, Anion Gap 8, Blood Urea Nitrogen 35H, Creatinine 2.4H, Estimat Glomerular Filtration Rate 27.4, Glucose Level 119H, Calcium Level 8.3L 10/28/19 09:35: Troponin I 0.863H Height (Feet): 5 Height (Inches): 10.00 Weight (Pounds): 228 General Appearance: no apparent distress Cardiovascular: normal rate Respiratory/Chest: decreased breath sounds Abdomen: distended Objective no change Rafa Farr MD Oct 28, 2019 15:01
[2019-10-28 16:00] VITALS: BP 139/67
--- NOTE | 2019-10-28 16:07 | NUR ---
*-* INSURANCE *-* ALL CLINICALS AND REVIEWS HAVE BEEN FAXED TO: [facility] REF# [id number] #[phone] FAX#[phone] REVIEWS/CLINICALS
--- NOTE | 2019-10-28 19:25 | NUR ---
NURSE NOTES: Dr. Welch at bedside, reported patient's poor appetite, refusal to eat, only drinks milk and juice.
--- NOTE | 2019-10-28 19:30 | NUR ---
HAND-OFF: Report given to Mary Ann Manzanares RN.
--- NOTE | 2019-10-28 19:35 | NUR ---
NURSE NOTES: received pt from LOU Romo. pt is observed resting in bed, eyes closed, able to respond to verbal commands, AO x 2, denies pain at this time. pt is on room air, saturation at 89%, will place on 2 L O2 with humidifier. no s/sx of respiratory distress noted. no acute cardiac distress noted at this time. urinal at bedside. RFA 22 g IV site is patent and intact, asymptomatic. bed in lowest position and locked, siderails up X3, call light within reach. will continue to monitor.
[2019-10-28 20:00] VITALS: BP 147/75
--- NOTE | 2019-10-28 20:27 | General Progress Note ---
Assessment/Plan Assessment/Plan: GI Consult Dictated Assessment - Anorexia, appears to be related to food choices - Azotemia - anemia - Functional decline - Elevated Troponin - hypothyroid Recommendations - Remeron trial - calorie count - liquid shakes / supplements - will ask family to bring home foods - check OB Thank you Naheed Welch MD Subjective Allergies: Coded Allergies: No Known Allergies (Unverified , 10/07/17) Objective Last 24 Hour Vital Signs Date Time Temp Pulse Resp B/P (MAP) Pulse Ox O2 Delivery O2 Flow Rate FiO2 10/28/19 16:00 98.2 57 20 139/67 (91) 96 10/28/19 16:00 Room Air Room Air 10/28/19 15:28 55 10/28/19 12:31 133/60 10/28/19 12:00 Nasal Cannula 2.0 Nasal Cannula 2.0 10/28/19 12:00 99.8 60 21 133/60 (84) 93 10/28/19 11:41 63 10/28/19 09:02 65 142/73 10/28/19 09:02 65 142/73 10/28/19 08:00 Nasal Cannula 2.0 Nasal Cannula 2.0 10/28/19 08:00 99.1 65 20 142/73 (96) 97 10/28/19 07:40 63 10/28/19 04:00 99.4 68 20 146/68 (94) 93 10/28/19 04:00 Nasal Cannula 2.0 Nasal Cannula 2.0 10/28/19 03:38 64 10/28/19 00:00 Nasal Cannula 2.0 Nasal Cannula 2.0 10/28/19 00:00 63 10/28/19 00:00 98.2 69 20 148/70 (96) 94 10/27/19 21:23 65 149/69 Intake and Output 10/27/19 10/28/19 19:00 07:00 Intake Total 60 ml Output Total 400 ml 300 ml Balance -400 ml -240 ml IV Total 60 ml Output Urine Total 400 ml 300 ml # Voids 2 2 # Bowel Movements 1 1 Laboratory Tests 10/28/19 09:05: White Blood Count 7.3, Red Blood Count 2.79L, Hemoglobin 8.9L, Hematocrit 26.8L , Mean Corpuscular Volume 96, Mean Corpuscular Hemoglobin 32.0H, Mean Corpuscular Hemoglobin Concent 33.3, Red Cell Distribution Width 13.0, Platelet Count 211, Mean Platelet Volume 6.7, Neutrophils (%) (Auto) 69.0, Lymphocytes (% ) (Auto) 14.3L, Monocytes (%) (Auto) 12.5H, Eosinophils (%) (Auto) 3.4H, Basophils (%) (Auto) 0.7, Prothrombin Time 12.2H, Prothromb Time International Ratio 1.2H, Sodium Level 139, Potassium Level 4.2, Chloride Level 107, Carbon Dioxide Level 24, Anion Gap 8, Blood Urea Nitrogen 35H, Creatinine 2.4H, Estimat Glomerular Filtration Rate 27.4, Glucose Level 119H, Calcium Level 8.3L 10/28/19 09:35: Troponin I 0.863H Height (Feet): 5 Height (Inches): 10.00 Weight (Pounds): 228 Naheed Welch MD Oct 28, 2019 20:27
[2019-10-28] MEDS: Atorvastatin 80mg tab ORAL SCH (21:24)
[2019-10-28] MEDS: Iron Sucrose 100 MG in NS 55 ML IV SCH (21:25)
--- NOTE | 2019-10-28 22:05 | General Progress Note ---
Assessment/Plan Problem List: (1) Sepsis ICD Codes: A41.9 - Sepsis, unspecified organism SNOMED: 77410340 (2) Hypoglycemia ICD Codes: E16.2 - Hypoglycemia, unspecified SNOMED: 683340247 (3) Elevated troponin ICD Codes: R79.89 - Other specified abnormal findings of blood chemistry SNOMED: 065861367, 250218236, 563338831 (4) Renal failure (ARF), acute on chronic ICD Codes: N17.9 - Acute kidney failure, unspecified; N18.9 - Chronic kidney disease, unspecified SNOMED: 306032484 Qualifiers: Qualified Codes: N17.9 - Acute kidney failure, unspecified; N18.3 - Chronic kidney disease, stage 3 (moderate) (5) Hypothyroid ICD Codes: E03.9 - Hypothyroidism, unspecified SNOMED: 20403525 (6) HTN (hypertension) ICD Codes: I10 - Essential (primary) hypertension SNOMED: 85281562 (7) Diabetic nephropathy ICD Codes: E11.21 - Type 2 diabetes mellitus with diabetic nephropathy SNOMED: 663568199 (8) Anemia in chronic kidney disease (CKD) ICD Codes: N18.9 - Chronic kidney disease, unspecified; D63.1 - Anemia in chronic kidney disease SNOMED: 887332901 Assessment/Plan: hypoglycemia improved FTT consulted dr carney for poor appetite htn nose bleed weak Subjective ROS Limited/Unobtainable: Yes Allergies: Coded Allergies: No Known Allergies (Unverified , 10/07/17) Objective Last 24 Hour Vital Signs Date Time Temp Pulse Resp B/P (MAP) Pulse Ox O2 Delivery O2 Flow Rate FiO2 10/28/19 21:24 69 147/75 10/28/19 20:00 98.6 63 22 147/75 (99) 98 10/28/19 20:00 69 10/28/19 16:00 98.2 57 20 139/67 (91) 96 10/28/19 16:00 Room Air Room Air 10/28/19 15:28 55 10/28/19 12:31 133/60 10/28/19 12:00 Nasal Cannula 2.0 Nasal Cannula 2.0 10/28/19 12:00 99.8 60 21 133/60 (84) 93 10/28/19 11:41 63 2/11/20 09:02 65 142/73 10/28/19 09:02 65 142/73 10/28/19 08:00 Nasal Cannula 2.0 Nasal Cannula 2.0 10/28/19 08:00 99.1 65 20 142/73 (96) 97 10/28/19 07:40 63 10/28/19 04:00 99.4 68 20 146/68 (94) 93 10/28/19 04:00 Nasal Cannula 2.0 Nasal Cannula 2.0 10/28/19 03:38 64 10/28/19 00:00 Nasal Cannula 2.0 Nasal Cannula 2.0 10/28/19 00:00 63 10/28/19 00:00 98.2 69 20 148/70 (96) 94 Intake and Output 10/27/19 10/28/19 19:00 07:00 Intake Total 60 ml Output Total 400 ml 300 ml Balance -400 ml -240 ml IV Total 60 ml Output Urine Total 400 ml 300 ml # Voids 2 2 # Bowel Movements 1 1 Laboratory Tests 10/28/19 09:05: White Blood Count 7.3, Red Blood Count 2.79L, Hemoglobin 8.9L, Hematocrit 26.8L , Mean Corpuscular Volume 96, Mean Corpuscular Hemoglobin 32.0H, Mean Corpuscular Hemoglobin Concent 33.3, Red Cell Distribution Width 13.0, Platelet Count 211, Mean Platelet Volume 6.7, Neutrophils (%) (Auto) 69.0, Lymphocytes (% ) (Auto) 14.3L, Monocytes (%) (Auto) 12.5H, Eosinophils (%) (Auto) 3.4H, Basophils (%) (Auto) 0.7, Prothrombin Time 12.2H, Prothromb Time International Ratio 1.2H, Sodium Level 139, Potassium Level 4.2, Chloride Level 107, Carbon Dioxide Level 24, Anion Gap 8, Blood Urea Nitrogen 35H, Creatinine 2.4H, Estimat Glomerular Filtration Rate 27.4, Glucose Level 119H, Calcium Level 8.3L 10/28/19 09:35: Troponin I 0.863H Height (Feet): 5 Height (Inches): 10.00 Weight (Pounds): 228 Cardiovascular: normal rate Respiratory/Chest: lungs clear Abdomen: soft Oni Schilling MD Oct 28, 2019 22:05
[2019-10-29] VITALS: BP 133/70
--- NOTE | 2019-10-29 03:00 | Consultation ---
DATE OF CONSULTATION: 10/28/2019 GASTROENTEROLOGY CONSULTATION CHIEF COMPLAINT: I was asked to see this patient by Dr. Oni Schilling for evaluation of appetite. HISTORY OF PRESENT ILLNESS: The patient is a 64-year-old man who was admitted here for hypoglycemia. The patient's appetite is variable and he appears to be very choosy in his foods. According to the nursing staff, he repeatedly states to them and also he says that he dislikes the hospital food. He takes lot of milk and juices when offered. He denies any abdominal pain, nausea, vomiting, hematochezia, or diarrhea. He does have a degree of renal failure and also stroke with left-sided contracture deformities and therefore he is bedbound. He does like food and states he will more eat more if somebody brought that to him. 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 FAMILY HISTORY: Noncontributory. SOCIAL HISTORY: The patient is bedbound and requires assistance. ALLERGIES: None. REVIEW OF SYSTEMS: Otherwise negative. PHYSICAL EXAMINATION: GENERAL: Debilitated white man seen in his room. HEENT: Normocephalic and atraumatic. Sclerae anicteric. Oropharynx clear. NECK: Supple. CHEST: Clear to auscultation. CARDIOVASCULAR: Revealed regular rate. ABDOMEN: Soft. EXTREMITIES: Revealed contracture deformities in the left upper extremity. LABORATORY DATA: Noted. ASSESSMENT: This patient presents with anorexia, which at least according to his own account due to dislikes of the food. He is able to talk and swallow normally and therefore efforts will be made to make him eat by himself. I will start him Remeron trial and also will do a calorie count. In the meantime, the family should be encouraged to bring home food to increase the appetite and Boost supplements can also be offered. RECOMMENDATIONS: Per above discussion and per orders written in the chart. Thank you for asking me to participate in the care of this patient. Naheed Welch M.D. DR: Андрей JOB#: [id number] CC: JELENA
[2019-10-29 04:00] VITALS: BP 153/78
[2019-10-29] MEDS: Acetaminophen 500mg (ES) tab ORAL PRN ×2 (06:48→21:31)
--- NOTE | 2019-10-29 07:38 | NUR ---
HAND-OFF: Report given to Rupesh Lee RN. endorsed plan of care.
[2019-10-29 08:00] VITALS: BP 146/68
--- NOTE | 2019-10-29 08:00 | NUR ---
NURSE NOTES: received pt in the bed, awake, alert, confused, vital signs stable, no co pain, skin warm and dry to touch, intact, condom catheter, yellow urine, refuse breakfast, bed in low position, call light within reach.
[2019-10-29] MEDS: Tamsulosin 0.4mg cap ORAL SCH ×2 (08:51→17:42)
[2019-10-29] MEDS: Docusate 100mg cap ORAL SCH ×2 (08:51→17:42)
[2019-10-29] MEDS: Furosemide 40mg tab ORAL SCH (08:51)
[2019-10-29] MEDS: Aspirin EC 81mg tab ORAL SCH (09:00)
--- NOTE | 2019-10-29 09:33 | Pulmonology Progress Note ---
Assessment/Plan Assessment/Plan IMPRESSION: 1. Mild pulmonary vascular congestion. 2. Hypertension. 3. Diabetes mellitus. 4. Previous CVA. 5. Hypoglycemia. 6. Hypoxemia. 7. Epistaxis DISCUSSION: Continue low flow O2 Continue diuresis OK to dc back to snf, once epistaxis resolves. Janes Cox M.D. Subjective Interval Events: None new Constitutional: Reports: no symptoms HEENT: Repors: no symptoms Respiratory: Reports: no symptoms Cardiovascular: Reports: no symptoms Allergies: Coded Allergies: No Known Allergies (Unverified , 10/07/17) Objective Last 24 Hour Vital Signs Date Time Temp Pulse Resp B/P (MAP) Pulse Ox O2 Delivery O2 Flow Rate FiO2 10/29/19 08:51 71 146/68 10/29/19 08:51 71 146/68 10/29/19 08:00 Nasal Cannula 2.0 Nasal Cannula 2.0 10/29/19 08:00 98.2 68 22 146/68 (94) 97 10/29/19 08:00 71 10/29/19 07:18 100.0 10/29/19 04:00 100.4 70 20 153/78 (103) 99 10/29/19 04:00 Nasal Cannula 2.0 Nasal Cannula 2.0 10/29/19 04:00 77 10/29/19 00:00 Nasal Cannula 2.0 Nasal Cannula 2.0 10/29/19 00:00 98.5 70 22 133/70 (91) 95 10/28/19 23:32 67 10/28/19 21:24 69 147/75 10/28/19 20:00 98.6 63 22 147/75 (99) 98 10/28/19 20:00 Room Air Room Air 10/28/19 20:00 69 10/28/19 16:00 98.2 57 20 139/67 (91) 96 10/28/19 16:00 Room Air Room Air 10/28/19 15:28 55 10/28/19 12:31 133/60 10/28/19 12:00 Nasal Cannula 2.0 Nasal Cannula 2.0 10/28/19 12:00 99.8 60 21 133/60 (84) 93 10/28/19 11:41 63 Intake and Output 10/28/19 10/29/19 19:00 07:00 Intake Total 500 ml 300 ml Output Total 400 ml 400 ml Balance 100 ml -100 ml Intake Oral 500 ml 240 ml IV Total 60 ml Output Urine Total 400 ml 400 ml # Voids 2 1 # Bowel Movements 2 General Appearance: no acute distress HEENT: normocephalic Respiratory/Chest: chest wall non-tender Cardiovascular: normal peripheral pulses, normal rate Laboratory Tests 10/28/19 09:35: Troponin I 0.863H 10/29/19 01:00: Stool Occult Blood [Pending] Current Medications Medications (Trade) Dose Ordered Sig/Leon Route PRN Reason Start Time Stop Time Status Last Admin Dose Admin Acetaminophen (Tylenol) 500 mg Q4H PRN ORAL Mild Pain/Temp > 100.5 10/24/19 04:30 11/23/19 04:29 10/29/19 06:48 Amlodipine Besylate (Norvasc) 5 mg Q12HR ORAL 10/25/19 21:00 11/24/19 20:59 10/29/19 08:51 Aspirin (Ecotrin) 81 mg DAILY ORAL 10/25/19 09:00 11/24/19 08:59 10/26/19 09:48 Atorvastatin Calcium (Lipitor) 80 mg BEDTIME ORAL 10/24/19 21:00 11/23/19 20:59 10/28/19 21:24 Clopidogrel Bisulfate (Plavix) 75 mg DAILY ORAL 10/25/19 09:00 11/24/19 08:59 10/25/19 09:09 Dextrose (Dextrose 50%) 25 ml Q30M PRN IV Hypoglycemia 10/24/19 05:15 11/23/19 05:14 Dextrose (Dextrose 50%) 50 ml Q30M PRN IV Hypoglycemia 10/24/19 05:15 11/23/19 05:14 Docusate Sodium (Colace) 100 mg TWICE A DAY ORAL 10/24/19 18:00 11/23/19 17:59 10/29/19 08:51 Finasteride (Proscar) 5 mg DAILY ORAL 10/25/19 09:00 11/24/19 08:59 10/29/19 08:52 Furosemide (Lasix) 40 mg DAILY ORAL 10/25/19 10:00 11/24/19 09:59 10/29/19 08:51 Iron Sucrose 100 mg/Sodium Chloride 60 ml @ 240 mls/hr BEDTIME IV 10/26/19 21:00 10/30/19 21:14 10/28/19 21:25 Levothyroxine Sodium (Synthroid) 150 mcg DAILY@0630 ORAL 10/24/19 06:30 11/23/19 06:29 10/29/19 06:46 Metoprolol Tartrate (Lopressor) 25 mg Q12HR ORAL 10/27/19 11:00 11/23/19 10:59 10/29/19 08:51 Mirtazapine (Remeron) 7.5 mg BEDTIME ORAL 10/28/19 21:00 11/27/19 20:59 10/28/19 21:24 Nitroglycerin (Ntg) 1 patch Q24H TDERMAL 10/24/19 12:30 11/23/19 12:29 10/28/19 12:31 Pantoprazole (Protonix) 40 mg EVERY 12 HOURS ORAL 10/25/19 21:00 11/24/19 20:59 10/29/19 08:51 Tamsulosin HCl (Flomax) 0.4 mg BID ORAL 10/26/19 18:00 11/23/19 20:59 10/29/19 08:51 Janes Cox MD Oct 29, 2019 09:33
--- NOTE | 2019-10-29 09:44 | NUR ---
ST NOTE: SWALLOW STATUS: PER MK BLAKE, PATIENT DID NOT EAT HIS BREAKFAST TODAY.PATIENT DISLIKES FOOD TEXTURE AND REFUSING TO EAT PER STAFF AND PATIENT. WILL UPGRADE TO SOFT CHEW AND HAVE RN SUPERVISE. PER RD (ANAND) LIBERALIZE DIET FOR NOW AND MAKE A REGULAR TYPE DIET. CONTINUE WITH THIN LIQUIDS AND USE POSTED ASPIRATION PRECAUTIONS. QUARTER SECTION IRONER ELENA EDUCATED/TRAINED IN POSTED ASPIRATION PRECAUTIONS. PLAN: UPGRADE DIET NOTED ABOVE WITH SUPERVISION OF MEAL PRN. COMPLETE MODIFIED BARIUM SWALLOW STUDY IP OR OP IF DC HE HAS RISK FOR A SILENT ASPIRATION DUE TO CVA DIAGNOSIS IN THE PAST. CONTINUE WITH PLAN OF CARE IN SWALLOW EVAL REPORT
--- NOTE | 2019-10-29 09:45 | General Progress Note ---
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 D/w Dr. Hanson and he concurred. Subjective Date patient seen: Oct 29, 2019 Time patient seen: 08:45 - am Allergies: Coded Allergies: No Known Allergies (Unverified , 10/07/17) Subjective REVIEW OF SYSTEMS: Denies rash, fever, chills, sweating, dizziness, drowsiness, blurred vision, sore throat, or change in weight. No shortness of breath or chest pain. No nausea, vomiting, diarrhea, or blood in the stool or urine. No bowel or bladder incontinence. No dysuria. SUBJECTIVE: Patient reports that he is feeling better today. Has no signs of pain or distress. He has no new complaints at this time. Objective Last 24 Hour Vital Signs Date Time Temp Pulse Resp B/P (MAP) Pulse Ox O2 Delivery O2 Flow Rate FiO2 10/29/19 08:51 71 146/68 10/29/19 08:51 71 146/68 10/29/19 08:00 Nasal Cannula 2.0 Nasal Cannula 2.0 10/29/19 08:00 98.2 68 22 146/68 (94) 97 10/29/19 08:00 71 10/29/19 07:18 100.0 10/29/19 04:00 100.4 70 20 153/78 (103) 99 10/29/19 04:00 Nasal Cannula 2.0 Nasal Cannula 2.0 10/29/19 04:00 77 10/29/19 00:00 Nasal Cannula 2.0 Nasal Cannula 2.0 10/29/19 00:00 98.5 70 22 133/70 (91) 95 10/28/19 23:32 67 10/28/19 21:24 69 147/75 10/28/19 20:00 98.6 63 22 147/75 (99) 98 10/28/19 20:00 Room Air Room Air 10/28/19 20:00 69 10/28/19 16:00 98.2 57 20 139/67 (91) 96 10/28/19 16:00 Room Air Room Air 10/28/19 15:28 55 10/28/19 12:31 133/60 10/28/19 12:00 Nasal Cannula 2.0 Nasal Cannula 2.0 10/28/19 12:00 99.8 60 21 133/60 (84) 93 10/28/19 11:41 63 Intake and Output 10/28/19 10/29/19 19:00 07:00 Intake Total 500 ml 300 ml Output Total 400 ml 400 ml Balance 100 ml -100 ml Intake Oral 500 ml 240 ml IV Total 60 ml Output Urine Total 400 ml 400 ml # Voids 2 1 # Bowel Movements 2 Laboratory Tests 10/29/19 01:00: Stool Occult Blood [Pending] Height (Feet): 5 Height (Inches): 10.00 Weight (Pounds): 218 Objective GENERAL: Alert, awake, and oriented. LUNGS: Decreased breath sounds bilaterally. HEART: S1 and S2 regular. ABDOMEN: Soft, nontender. EXTREMITIES: No cyanosis. No clubbing. NEURO: No changes. Warren Torres Oct 29, 2019 09:45
--- NOTE | 2019-10-29 10:01 | Hematology/Onc Progress Note ---
Assessment/Plan Assessment/Plan Assessment and Recs: # Anemia due to underlying GI bleed -- patient presents with hematemesis before and now with barb --> as per GI eval, may need endoscopy --> has been started on ppi --> cea has been ordered --> Hgb goal >7. Transfuse prn. --> Will sign consent if necessary --> Epogen not started. IRON IV x 5 days started --> Consider octreotide gtt as per gi eval --> Medications have been reviewed --> Hgb 8.8 -->8.6 # Coagulation defect/Bleeding, multifactorial usually related to poor PO intake versus medications, in this case related to coumadin --> administer Vitamin K if patient is bleeding or FFP if the INR is >10 --> hold off on ffp unless active procedure/bleeding, first begin with vit K 10 --> mixing study as needed --> HAVE STOPPED COUMADIN --> per cards, hold off at this time, is aware of afib hx # Anemia due to folic acid deficiency/iron deficiency as well --> prior folic acid<5 --> recheck levels # Elevated troponin, rising, ?nstemi --> aware --> anticoag as per his recs # Renal failure (ARF), acute on chronic --> per renal Dr. Farr # UTI --> abx as needed # Dvt ppx on scds now The timing of this note does not necessarily reflect the time of the patient was seen. Greatly appreciate consultation. Subjective Constitutional: Denies: no symptoms, chills, fever, malaise, weakness, other HEENT: Denies: no symptoms, eye pain, blurred vision, tearing, double vision, ear pain, ear discharge, nose pain, nose congestion, throat pain, throat swelling, mouth pain, mouth swelling, other Cardiovascular: Denies: no symptoms, chest pain, edema, irregular heart rate, lightheadedness, palpitations, syncope, other Gastrointestinal/Abdominal: Denies: no symptoms, abdomen distended, abdominal pain, black stools, tarry stools, blood in stool, constipated, diarrhea, difficulty swallowing, nausea, poor appetite, poor fluid intake, rectal bleeding , vomiting, other Genitourinary: Denies: no symptoms, burning, discharge, frequency, flank pain, hematuria, incontinence, pain, urgency, other Neurologic/Psychiatric: Denies: no symptoms, anxiety, depressed, emotional problems, headache, numbness, paresthesia, pre-existing deficit, seizure, tingling, tremors, weakness, other Endocrine: Denies: no symptoms, excessive sweating, flushing, intolerance to cold, intolerance to heat, increased hunger, increased thirst, increased urine, unexplained weight gain, unexplained weight loss, other Allergies: Coded Allergies: No Known Allergies (Unverified , 10/07/17) Subjective 10/27: awake, venous duplex negative, iv iron, nose bleed 10/28: is awake, alert on 2l flow, no bleeding, coags noted 10/29: no major changes, seen by pulm, coag midly elevated, hgb in the 8s Objective Objective Current Medications Medications (Trade) Dose Ordered Sig/Leon Route PRN Reason Start Time Stop Time Status Last Admin Dose Admin Acetaminophen (Tylenol) 500 mg Q4H PRN ORAL Mild Pain/Temp > 100.5 10/24/19 04:30 11/23/19 04:29 10/29/19 06:48 Amlodipine Besylate (Norvasc) 5 mg Q12HR ORAL 10/25/19 21:00 11/24/19 20:59 10/29/19 08:51 Aspirin (Ecotrin) 81 mg DAILY ORAL 10/25/19 09:00 11/24/19 08:59 10/26/19 09:48 Atorvastatin Calcium (Lipitor) 80 mg BEDTIME ORAL 10/24/19 21:00 11/23/19 20:59 10/28/19 21:24 Clopidogrel Bisulfate (Plavix) 75 mg DAILY ORAL 10/25/19 09:00 11/24/19 08:59 10/25/19 09:09 Dextrose (Dextrose 50%) 25 ml Q30M PRN IV Hypoglycemia 10/24/19 05:15 11/23/19 05:14 Dextrose (Dextrose 50%) 50 ml Q30M PRN IV Hypoglycemia 10/24/19 05:15 11/23/19 05:14 Docusate Sodium (Colace) 100 mg TWICE A DAY ORAL 10/24/19 18:00 11/23/19 17:59 10/29/19 08:51 Finasteride (Proscar) 5 mg DAILY ORAL 10/25/19 09:00 11/24/19 08:59 10/29/19 08:52 Furosemide (Lasix) 40 mg DAILY ORAL 10/25/19 10:00 11/24/19 09:59 10/29/19 08:51 Iron Sucrose 100 mg/Sodium Chloride 60 ml @ 240 mls/hr BEDTIME IV 10/26/19 21:00 10/30/19 21:14 10/28/19 21:25 Levothyroxine Sodium (Synthroid) 150 mcg DAILY@0630 ORAL 10/24/19 06:30 11/23/19 06:29 10/29/19 06:46 Metoprolol Tartrate (Lopressor) 25 mg Q12HR ORAL 10/27/19 11:00 11/23/19 10:59 10/29/19 08:51 Mirtazapine (Remeron) 7.5 mg BEDTIME ORAL 10/28/19 21:00 11/27/19 20:59 10/28/19 21:24 Nitroglycerin (Ntg) 1 patch Q24H TDERMAL 10/24/19 12:30 11/23/19 12:29 10/28/19 12:31 Pantoprazole (Protonix) 40 mg EVERY 12 HOURS ORAL 10/25/19 21:00 11/24/19 20:59 10/29/19 08:51 Tamsulosin HCl (Flomax) 0.4 mg BID ORAL 10/26/19 18:00 11/23/19 20:59 10/29/19 08:51 Last 24 Hour Vital Signs Date Time Temp Pulse Resp B/P (MAP) Pulse Ox O2 Delivery O2 Flow Rate FiO2 10/29/19 08:51 71 146/68 10/29/19 08:51 71 146/68 10/29/19 08:00 Nasal Cannula 2.0 Nasal Cannula 2.0 10/29/19 08:00 98.2 68 22 146/68 (94) 97 10/29/19 08:00 71 10/29/19 07:18 100.0 10/29/19 04:00 100.4 70 20 153/78 (103) 99 10/29/19 04:00 Nasal Cannula 2.0 Nasal Cannula 2.0 10/29/19 04:00 77 10/29/19 00:00 Nasal Cannula 2.0 Nasal Cannula 2.0 10/29/19 00:00 98.5 70 22 133/70 (91) 95 10/28/19 23:32 67 10/28/19 21:24 69 147/75 10/28/19 20:00 98.6 63 22 147/75 (99) 98 10/28/19 20:00 Room Air Room Air 10/28/19 20:00 69 10/28/19 16:00 98.2 57 20 139/67 (91) 96 10/28/19 16:00 Room Air Room Air 10/28/19 15:28 55 10/28/19 12:31 133/60 10/28/19 12:00 Nasal Cannula 2.0 Nasal Cannula 2.0 10/28/19 12:00 99.8 60 21 133/60 (84) 93 10/28/19 11:41 63 10/28/19 09:02 65 142/73 10/28/19 09:02 65 142/73 10/28/19 08:00 Nasal Cannula 2.0 Nasal Cannula 2.0 10/28/19 08:00 99.1 65 20 142/73 (96) 97 10/28/19 07:40 63 10/28/19 04:00 99.4 68 20 146/68 (94) 93 10/28/19 04:00 Nasal Cannula 2.0 Nasal Cannula 2.0 10/28/19 03:38 64 10/28/19 00:00 Nasal Cannula 2.0 Nasal Cannula 2.0 10/28/19 00:00 63 10/28/19 00:00 98.2 69 20 148/70 (96) 94 10/27/19 21:23 65 149/69 10/27/19 20:13 67 158/73 10/27/19 20:00 98.8 67 22 158/73 (101) 96 10/27/19 20:00 Nasal Cannula 2.0 Nasal Cannula 2.0 10/27/19 19:05 74 10/27/19 16:00 Nasal Cannula 2.0 Nasal Cannula 2.0 10/27/19 16:00 98.8 79 18 120/72 (88) 98 10/27/19 15:29 66 10/27/19 12:15 159/75 10/27/19 12:00 98.8 78 21 159/75 (103) 94 10/27/19 12:00 Nasal Cannula 2.0 Nasal Cannula 2.0 10/27/19 11:50 75 Intake and Output 10/28/19 10/29/19 19:00 07:00 Intake Total 500 ml 300 ml Output Total 400 ml 400 ml Balance 100 ml -100 ml Intake Oral 500 ml 240 ml IV Total 60 ml Output Urine Total 400 ml 400 ml # Voids 2 1 # Bowel Movements 2 Labs Test 10/27/19 03:30 10/28/19 09:05 10/28/19 09:35 10/29/19 01:00 White Blood Count 6.6 K/UL (4.8-10.8) 7.3 K/UL (4.8-10.8) Red Blood Count 2.66 M/UL (4.70-6.10) 2.79 M/UL (4.70-6.10) Hemoglobin 8.6 G/DL (14.2-18.0) 8.9 G/DL (14.2-18.0) Hematocrit 25.6 % (42.0-52.0) 26.8 % (42.0-52.0) Mean Corpuscular Volume 96 FL (80-99) 96 FL (80-99) Mean Corpuscular Hemoglobin 32.4 PG (27.0-31.0) 32.0 PG (27.0-31.0) Mean Corpuscular Hemoglobin Concent 33.6 G/DL (32.0-36.0) 33.3 G/DL (32.0-36.0) Red Cell Distribution Width 12.9 % (11.6-14.8) 13.0 % (11.6-14.8) Platelet Count 207 K/UL (150-450) 211 K/UL (150-450) Mean Platelet Volume 6.7 FL (6.5-10.1) 6.7 FL (6.5-10.1) Neutrophils (%) (Auto) 70.7 % (45.0-75.0) 69.0 % (45.0-75.0) Lymphocytes (%) (Auto) 10.3 % (20.0-45.0) 14.3 % (20.0-45.0) Monocytes (%) (Auto) 12.2 % (1.0-10.0) 12.5 % (1.0-10.0) Eosinophils (%) (Auto) 5.1 % (0.0-3.0) 3.4 % (0.0-3.0) Basophils (%) (Auto) 1.7 % (0.0-2.0) 0.7 % (0.0-2.0) Sodium Level 144 MMOL/L (136-145) 139 MMOL/L (136-145) Potassium Level 4.5 MMOL/L (3.5-5.1) 4.2 MMOL/L (3.5-5.1) Chloride Level 111 MMOL/L (98-107) 107 MMOL/L (98-107) Carbon Dioxide Level 25 MMOL/L (21-32) 24 MMOL/L (21-32) Anion Gap 8 mmol/L (5-15) 8 mmol/L (5-15) Blood Urea Nitrogen 36 mg/dL (7-18) 35 mg/dL (7-18) Creatinine 2.3 MG/DL (0.55-1.30) 2.4 MG/DL (0.55-1.30) Estimat Glomerular Filtration Rate 28.8 mL/min (>60) 27.4 mL/min (>60) Glucose Level 87 MG/DL (74-106) 119 MG/DL (74-106) Calcium Level 8.4 MG/DL (8.5-10.1) 8.3 MG/DL (8.5-10.1) Phosphorus Level 3.3 MG/DL (2.5-4.9) Magnesium Level 1.7 MG/DL (1.8-2.4) Total Bilirubin 0.7 MG/DL (0.2-1.0) Aspartate Amino Transf (AST/SGOT) 16 U/L (15-37) Alanine Aminotransferase (ALT/SGPT) 15 U/L (12-78) Alkaline Phosphatase 110 U/L (46-116) Troponin I 1.008 ng/mL (0.000-0.056) 0.863 ng/mL (0.000-0.056) C-Reactive Protein, Quantitative 2.1 mg/dL (0.00-0.90) Pro-B-Type Natriuretic Peptide 49638 pg/mL (0-125) Total Protein 6.2 G/DL (6.4-8.2) Albumin 2.9 G/DL (3.4-5.0) Globulin 3.3 g/dL Albumin/Globulin Ratio 0.9 (1.0-2.7) Carcinoembryonic Antigen 1.8 ng/mL (0.0-4.7) Prothrombin Time 12.2 SEC (9.30-11.50) Prothromb Time International Ratio 1.2 (0.9-1.1) Height (Feet): 5 Height (Inches): 10.00 Weight (Pounds): 218 Objective PE Vitals: reviewed General Appearance: NAD + chronically ill HEENT: normocephalic, atraumatic ++ biconjunctival hemorrhage-> improved Neck: non-tender, normal alignment Respiratory/Chest: nromal breath sounds bilaterally Cardiovascular/Chest: normal peripheral pulses, normal rate Abdomen: normal bowel sounds, soft, nontender Extremities: normal range of motion, Right arm skin tear, left sided weaknness NEURO: ++ left sided weakness Nate Whyte MD Oct 29, 2019 10:01
--- NOTE | 2019-10-29 10:49 | Cardiac Electrophysiology PN ---
Assessment/Plan Assessment/Plan 1. NSTEMI. Troponin is 1.8. Down to 0.86 and no CP. ECG no acute ischemia and Echo Nl EF. Likely due to renal failure. Has history of MT in July 2019 with troponin critical of more than 24. EF of 60%. Hold aspirin and plavix for incessant nose bleed On Lopressor 25 bid, and statin. 2. Questionable atrial fibrillation or DVT, currently remain in sinus rhythm. He used to be on anticoagulation. 3. Hypothyroidism, on Synthroid. 4. History of CVA with left hemiplegia.On Plavix 5. Nose bleed. FU DR Brown 6. Fever. SHARP in progress. LAMIN RN Subjective Subjective In SR. Had fever last night. Bleeding from Left nostril improved. Aspirin and Plavix still held Objective Last 24 Hour Vital Signs Date Time Temp Pulse Resp B/P (MAP) Pulse Ox O2 Delivery O2 Flow Rate FiO2 10/29/19 08:51 71 146/68 10/29/19 08:51 71 146/68 10/29/19 08:00 Nasal Cannula 2.0 Nasal Cannula 2.0 10/29/19 08:00 98.2 68 22 146/68 (94) 97 10/29/19 08:00 71 10/29/19 07:18 100.0 10/29/19 04:00 100.4 70 20 153/78 (103) 99 10/29/19 04:00 Nasal Cannula 2.0 Nasal Cannula 2.0 10/29/19 04:00 77 10/29/19 00:00 Nasal Cannula 2.0 Nasal Cannula 2.0 10/29/19 00:00 98.5 70 22 133/70 (91) 95 10/28/19 23:32 67 10/28/19 21:24 69 147/75 10/28/19 20:00 98.6 63 22 147/75 (99) 98 10/28/19 20:00 Room Air Room Air 10/28/19 20:00 69 10/28/19 16:00 98.2 57 20 139/67 (91) 96 10/28/19 16:00 Room Air Room Air 10/28/19 15:28 55 10/28/19 12:31 133/60 10/28/19 12:00 Nasal Cannula 2.0 Nasal Cannula 2.0 10/28/19 12:00 99.8 60 21 133/60 (84) 93 10/28/19 11:41 63 Intake and Output 10/28/19 10/29/19 19:00 07:00 Intake Total 500 ml 300 ml Output Total 400 ml 400 ml Balance 100 ml -100 ml Intake Oral 500 ml 240 ml IV Total 60 ml Output Urine Total 400 ml 400 ml # Voids 2 1 # Bowel Movements 2 Laboratory Tests Test 10/29/19 01:00 10/29/19 10:30 Stool Occult Blood Pending Urine Color Pending Urine Appearance Pending Urine pH Pending Urine Specific [place] Pending Urine Protein Pending Urine Glucose (UA) Pending Urine Ketones Pending Urine Blood Pending Urine Nitrite Pending Urine Bilirubin Pending Urine Urobilinogen Pending Urine Leukocyte Esterase Pending Objective HEAD AND NECK: No JVD.Left nostril bleeding LUNGS: Clear. CARDIOVASCULAR: Regular S1 and S2 with no gallop. ABDOMEN: Soft. EXTREMITIES: The patient has left hemiplegia with contraction of left arm. Castillo Bazan MD Oct 29, 2019 10:49
[2019-10-29 10:54] LABS: APPEARANCE,URINE SLIGHTLY CLOUDY; BILIRUBIN, URINE NEGATIVE (NEGATIVE); COLOR,URINE PALE YELLOW; GLUCOSE, URINE (UA) NEGATIVE (NEGATIVE); KETONES,URINE NEGATIVE (NEGATIVE); LEUKOCYTE ESTERASE ,URINE 3+ (NEGATIVE); NITRITE,URINE NEGATIVE (NEGATIVE); PH,URINE 5 (4.5-8.0); PROTEIN,URINE 3+ (NEGATIVE); UROBILINOGEN,URINE NORMAL MG/DL (0.0-1.0)
--- NOTE | 2019-10-29 10:54 | Diagnostic Imaging Report ---
Indication: Cough Technique: One view of the chest Comparison: 10/24/2019 Findings: The heart is mildly enlarged. There is bilateral interstitial and airspace edema again demonstrated, appearing slightly worse. The pleural spaces are grossly clear. Impression: Cardiomegaly Slight worsening of bilateral interstitial and airspace edema.
--- NOTE | 2019-10-29 11:03 | NUR ---
RADIOLOGY DEPT., CHEST X-RAY DONE.-P.DYE
--- NOTE | 2019-10-29 11:28 | NUR ---
RD ASSESSMENT & RECOMMENDATIONS SEE CARE ACTIVITY FOR COMPLETE ASSESSMENT DAILY ESTIMATED NEEDS: Needs based on DM, Cardiac, Obesity, renal/ 81.7kg abw 22-25 kcals/kg 3394-6805 total kcals 0.8-1.2 g protein/kg 66-98 g total protein 20-25 mL/kg 3464-7965 total fluid mLs NUTRITION DIAGNOSIS: * Altered nutrition related lab values R/T diabetes, cardiac hx as evidenced by elev BGs (242 196 -> 119 87 now improved), elev POC glu (200's -> 93-135), elev BNP (22162) * Swallowing difficulty R/T dysphagia, h/o CVA as evidenced by RN CASE MGR recommends mech soft chopped texture diet-> now advanced to soft easy chew. CURRENT DIET:CARDIAC, mech soft chopped -> now liberalized REGULAR/ SOFT EASY CHEW (changed 10/29) PO DIET RECOMMENDATIONS: LIBERALIZED REGULAR DIET W/ POOR PO/ texture per RN CASE MGR ADDITIONAL RECOMMENDATIONS: * Monitor for hypoglycemia w/ poor PO, snacks TID in b/w meals added * Liberalized regular diet w/ poor PO -> Low Na/ CCHO MED when PO intake consistently >50% * Pt refused HPN like Glucerna/Ensure. 8oz 2% milk TID w/ meals added per pt request (190kcal/10g prot each) * F/up w/ Kiko count x 48 hrs * Monitor lytes closely w/ Lasix, replete as needed (check f/up mag)
[2019-10-29 11:55] VITALS: BP 139/63
[2019-10-29] MEDS: Nitroglycerin Patch 0.4mg TDERMAL SCH (12:50)
--- NOTE | 2019-10-29 13:28 | Nephrology Progress Note ---
Assessment/Plan Problem List: (1) Renal failure (ARF), acute on chronic Assessment: Cr stable (2) Elevated troponin (3) Hypoglycemia (4) Hypothyroid (5) HTN (hypertension) (6) Diabetic nephropathy (7) Anemia in chronic kidney disease (CKD) Assessment Urinary retention Renal failure (ARF), acute on chronic Anemia: s/p GI Bleed on anticoagulation h/o Hypertension Elevated troponin h/o Hypothyroid DM- Hypoglycemia on presentation h/o UTI Plan DC Kamara BP management IV Iron watch HR 2D Echo NOTED Kidney MARCO A NOTED Avoid nephrotoxics antibiotics Per orders / per consultants Subjective ROS Limited/Unobtainable: No Constitutional: Reports: malaise Objective Objective Last 24 Hour Vital Signs Date Time Temp Pulse Resp B/P (MAP) Pulse Ox O2 Delivery O2 Flow Rate FiO2 10/29/19 12:50 139/63 10/29/19 12:00 Nasal Cannula 2.0 Nasal Cannula 2.0 10/29/19 12:00 60 10/29/19 11:55 98.6 68 20 139/63 (88) 94 10/29/19 08:51 71 146/68 10/29/19 08:51 71 146/68 10/29/19 08:00 Nasal Cannula 2.0 Nasal Cannula 2.0 10/29/19 08:00 98.2 68 22 146/68 (94) 97 10/29/19 08:00 71 10/29/19 07:18 100.0 10/29/19 04:00 100.4 70 20 153/78 (103) 99 10/29/19 04:00 Nasal Cannula 2.0 Nasal Cannula 2.0 10/29/19 04:00 77 10/29/19 00:00 Nasal Cannula 2.0 Nasal Cannula 2.0 10/29/19 00:00 98.5 70 22 133/70 (91) 95 10/28/19 23:32 67 10/28/19 21:24 69 147/75 10/28/19 20:00 98.6 63 22 147/75 (99) 98 10/28/19 20:00 Room Air Room Air 10/28/19 20:00 69 10/28/19 16:00 98.2 57 20 139/67 (91) 96 10/28/19 16:00 Room Air Room Air 10/28/19 15:28 55 Intake and Output 10/28/19 10/29/19 19:00 07:00 Intake Total 500 ml 300 ml Output Total 400 ml 400 ml Balance 100 ml -100 ml Intake Oral 500 ml 240 ml IV Total 60 ml Output Urine Total 400 ml 400 ml # Voids 2 1 # Bowel Movements 2 Laboratory Tests 10/29/19 01:00: Stool Occult Blood Negative 10/29/19 10:30: Urine Color Pale yellow, Urine Appearance Slightly cloudy, Urine pH 5, Urine Specific [place] 1.010, Urine Protein 3+H, Urine Glucose (UA) Negative, Urine Ketones Negative, Urine Blood 3+H, Urine Nitrite Negative, Urine Bilirubin Negative, Urine Urobilinogen Normal, Urine Leukocyte Esterase 3+H, Urine RBC 2- 4H, Urine WBC 40-60H, Urine Squamous Epithelial Cells Occasional, Urine Bacteria ModerateH Height (Feet): 5 Height (Inches): 10.00 Weight (Pounds): 218 General Appearance: no apparent distress Cardiovascular: normal rate Respiratory/Chest: decreased breath sounds Abdomen: soft Objective no change Rafa Farr MD Oct 29, 2019 13:28
--- NOTE | 2019-10-29 13:47 | NUR ---
NURSE NOTES: pt confused, uncooperative, try to get out from bed, no co pain, vital signs stable, refuse lunch, family aware, continue monitoring.
--- NOTE | 2019-10-29 14:26 | NUR ---
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 100.0 HR 71 RR 20 B/P 146/71 NC 2L O2 SAT @ 98% IS: ROCEPHIN IV PROTONIX IV CULTURES PENDING STEP DOWN STATUS
[2019-10-29 15:55] VITALS: BP 148/73
[2019-10-29] MEDS: cefTRIAXone 1 GM in D5W 55 ML IVPB SCH (15:58)
--- NOTE | 2019-10-29 18:55 | General Progress Note ---
Assessment/Plan Problem List: (1) Hypothyroid ICD Codes: E03.9 - Hypothyroidism, unspecified SNOMED: 39328776 (2) HTN (hypertension) ICD Codes: I10 - Essential (primary) hypertension SNOMED: 32818972 (3) Diabetic nephropathy ICD Codes: E11.21 - Type 2 diabetes mellitus with diabetic nephropathy SNOMED: 770269346 (4) Hypoglycemia ICD Codes: E16.2 - Hypoglycemia, unspecified SNOMED: 116445882 (5) Renal failure (ARF), acute on chronic ICD Codes: N17.9 - Acute kidney failure, unspecified; N18.9 - Chronic kidney disease, unspecified SNOMED: 866848733 Qualifiers: Qualified Codes: N17.9 - Acute kidney failure, unspecified; N18.3 - Chronic kidney disease, stage 3 (moderate) Assessment/Plan: continue LT4 150 mcg daily continue glucose monitoring no need for scheduled diabetic medications hypoglycemia protocol in order Subjective ROS Limited/Unobtainable: Yes Allergies: Coded Allergies: No Known Allergies (Unverified , 10/07/17) Subjective events noted interval notes reviewed glucose values are stable without hypoglycemia Item Value Date Time Bedside Blood Glucose 143 mg/dl H 10/29/19 1600 Bedside Blood Glucose 95 mg/dl 10/29/19 1206 Bedside Blood Glucose 103 mg/dl 10/29/19 0800 Bedside Blood Glucose 93 mg/dl 10/29/19 0400 Bedside Blood Glucose 109 mg/dl 10/29/19 0000 Bedside Blood Glucose 116 mg/dl 10/28/19 2000 Objective Last 24 Hour Vital Signs Date Time Temp Pulse Resp B/P (MAP) Pulse Ox O2 Delivery O2 Flow Rate FiO2 10/29/19 16:00 72 10/29/19 16:00 Nasal Cannula 2.0 Nasal Cannula 2.0 10/29/19 15:55 99.3 76 22 148/73 (98) 95 10/29/19 12:50 139/63 10/29/19 12:00 Nasal Cannula 2.0 Nasal Cannula 2.0 10/29/19 12:00 60 10/29/19 11:55 98.6 68 20 139/63 (88) 94 10/29/19 08:51 71 146/68 10/29/19 08:51 71 146/68 10/29/19 08:00 Nasal Cannula 2.0 Nasal Cannula 2.0 10/29/19 08:00 98.2 68 22 146/68 (94) 97 10/29/19 08:00 71 10/29/19 07:18 100.0 10/29/19 04:00 100.4 70 20 153/78 (103) 99 10/29/19 04:00 Nasal Cannula 2.0 Nasal Cannula 2.0 10/29/19 04:00 77 10/29/19 00:00 Nasal Cannula 2.0 Nasal Cannula 2.0 10/29/19 00:00 98.5 70 22 133/70 (91) 95 10/28/19 23:32 67 10/28/19 21:24 69 147/75 10/28/19 20:00 98.6 63 22 147/75 (99) 98 10/28/19 20:00 Room Air Room Air 10/28/19 20:00 69 Intake and Output 10/28/19 10/29/19 19:00 07:00 Intake Total 500 ml 300 ml Output Total 400 ml 400 ml Balance 100 ml -100 ml Intake Oral 500 ml 240 ml IV Total 60 ml Output Urine Total 400 ml 400 ml # Voids 2 1 # Bowel Movements 2 Laboratory Tests 10/29/19 01:00: Stool Occult Blood Negative 10/29/19 10:30: Urine Color Pale yellow, Urine Appearance Slightly cloudy, Urine pH 5, Urine Specific [place] 1.010, Urine Protein 3+H, Urine Glucose (UA) Negative, Urine Ketones Negative, Urine Blood 3+H, Urine Nitrite Negative, Urine Bilirubin Negative, Urine Urobilinogen Normal, Urine Leukocyte Esterase 3+H, Urine RBC 2- 4H, Urine WBC 40-60H, Urine Squamous Epithelial Cells Occasional, Urine Bacteria ModerateH Height (Feet): 5 Height (Inches): 10.00 Weight (Pounds): 218 General Appearance: no apparent distress Neck: normal alignment Cardiovascular: normal rate Respiratory/Chest: lungs clear Abdomen: normal bowel sounds Pelvis: normal external exam Edema: no edema noted Arm (L), no edema noted Arm (R), no edema noted Leg (L), no edema noted Leg (R), no edema noted Pedal (L), no edema noted Pedal (R), no edema noted Generalized Objective Current Medications Medications (Trade) Dose Ordered Sig/Leon Route PRN Reason Start Time Stop Time Status Last Admin Dose Admin Acetaminophen (Tylenol) 500 mg Q4H PRN ORAL Mild Pain/Temp > 100.5 10/24/19 04:30 11/23/19 04:29 10/29/19 06:48 Amlodipine Besylate (Norvasc) 5 mg Q12HR ORAL 10/25/19 21:00 11/24/19 20:59 10/29/19 08:51 Aspirin (Ecotrin) 81 mg DAILY ORAL 10/25/19 09:00 11/24/19 08:59 10/26/19 09:48 Atorvastatin Calcium (Lipitor) 80 mg BEDTIME ORAL 10/24/19 21:00 11/23/19 20:59 10/28/19 21:24 Ceftriaxone Sodium 1 gm/ Dextrose 55 ml @ 110 mls/hr Q24H IVPB 10/29/19 16:00 11/05/19 15:59 10/29/19 15:58 Clopidogrel Bisulfate (Plavix) 75 mg DAILY ORAL 10/25/19 09:00 11/24/19 08:59 10/25/19 09:09 Dextrose (Dextrose 50%) 25 ml Q30M PRN IV Hypoglycemia 10/24/19 05:15 11/23/19 05:14 Dextrose (Dextrose 50%) 50 ml Q30M PRN IV Hypoglycemia 10/24/19 05:15 11/23/19 05:14 Docusate Sodium (Colace) 100 mg TWICE A DAY ORAL 10/24/19 18:00 11/23/19 17:59 10/29/19 17:42 Finasteride (Proscar) 5 mg DAILY ORAL 10/25/19 09:00 11/24/19 08:59 10/29/19 08:52 Furosemide (Lasix) 40 mg DAILY ORAL 10/25/19 10:00 11/24/19 09:59 10/29/19 08:51 Iron Sucrose 100 mg/Sodium Chloride 60 ml @ 240 mls/hr BEDTIME IV 10/26/19 21:00 10/30/19 21:14 10/28/19 21:25 Levothyroxine Sodium (Synthroid) 150 mcg DAILY@0630 ORAL 10/24/19 06:30 11/23/19 06:29 10/29/19 06:46 Metoprolol Tartrate (Lopressor) 25 mg Q12HR ORAL 2/10/20 11:00 11/23/19 10:59 10/29/19 08:51 Mirtazapine (Remeron) 7.5 mg BEDTIME ORAL 10/28/19 21:00 11/27/19 20:59 10/28/19 21:24 Nitroglycerin (Ntg) 1 patch Q24H TDERMAL 10/24/19 12:30 11/23/19 12:29 10/29/19 12:50 Pantoprazole (Protonix) 40 mg EVERY 12 HOURS ORAL 10/25/19 21:00 11/24/19 20:59 10/29/19 08:51 Tamsulosin HCl (Flomax) 0.4 mg BID ORAL 10/26/19 18:00 11/23/19 20:59 10/29/19 17:42 Aureliano Estrada MD Oct 29, 2019 18:55
--- NOTE | 2019-10-29 19:13 | NUR ---
HAND-OFF: Report given to FARIDEH BLAKE, no distress at this time..
--- NOTE | 2019-10-29 19:30 | NUR ---
NURSE NOTES: received pt from Rupesh Lee RN. pt is observed in bed, eyes open, confused at this time. no s/sx of pain noted at this time. pt is on 2 L O2 with humidifier, tolerating well; no s/sx of respiratory distress noted. monitoring tech shows SR with current HR of 76 at this time; no acute cardiac distress noted. RFA 22 g IV site is patent and intact, asymptomatic. SCDs applied to bilateral lower extremities. bed in lowest position, siderails up X3, call light within reach. will continue to monitor.
--- NOTE | 2019-10-29 19:46 | Consultation ---
DATE OF CONSULTATION: 10/29/2019 INFECTIOUS DISEASES CONSULTATION CONSULTING PHYSICIAN: Troy Yeboah M.D. PRIMARY ATTENDING PHYSICIAN: Oni Schilling M.D. REASON FOR CONSULTATION: UTI and fever. HISTORY OF PRESENT ILLNESS: The patient is a 64-year-old male admitted from residential on 24 of October because of hyperglycemia, was found to have acute renal failure, hypoxemia. The patient is doing better, found to have low fever in the morning, maximum temperature is 100.4. 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 PAST SURGICAL HISTORY: Brain surgery, ear surgery, cholecystectomy. ALLERGIES: No known drug allergies. MEDICATIONS: Getting Remeron, metoclopramide, IV iron, Flomax, Protonix, amlodipine, Lasix, aspirin, Plavix, Proscar, levothyroxine, Tylenol. SOCIAL HISTORY: Single. No history of alcohol, drug abuse, or smoking. REVIEW OF SYSTEMS: Fever, has dry cough. No nausea. No vomiting. He states he can walk, but he cannot use the left hand because of contracture. PHYSICAL EXAMINATION: VITAL SIGNS: Temperature 98.6, T-max 100.4, blood pressure 139/63, pulse 60. GENERAL APPEARANCE: The patient is well developed. HEAD AND NECK: No oral lesion. HEART: Normal rate. LUNGS: Clear. ABDOMEN: Soft and nontender. EXTREMITIES: No edema. Contracted left hand. NEUROLOGIC: Awake, alert, and oriented. LABORATORY AND DIAGNOSTIC DATA: WBC 7.3, hemoglobin 8.9, hematocrit 26.8, and platelets is 211. Sodium 139, potassium 4.2, chloride 104, bicarbonate 24, BUN 35, creatinine 2.4, glucose 119. Troponin was elevated, highest level is 1.823 at the time of admission. Albumin is 2.9. UA showed WBC of 40 to 60, bacteria moderate. Chest x-ray showed bilateral interstitial and airspace edema. IMPRESSION: Fever, new onset fever likely secondary to urinary tract infection. The patient has diabetes mellitus with hyperglycemia, anemia, acute renal failure, chronic kidney disease, BPH, hypertension, hypothyroidism. RECOMMENDATION: We will start patient on ceftriaxone. We will follow up blood and urine cultures. At the end of my exam, I thank Dr. Schilling, for involving me in the care of this patient. Troy Yeboah M.D. DR: Milly JOB#: [id number] CC:
[2019-10-29 20:00] VITALS: BP 154/75
[2019-10-29] MEDS ORDERED: Pantoprazole Inj IVP SCH (21:00)
--- NOTE | 2019-10-29 21:11 | General Progress Note ---
Assessment/Plan Assessment/Plan: Assessment - Anorexia, appears to be related to food choices - Azotemia - anemia - Functional decline - Elevated Troponin - hypothyroid Recommendations - Remeron trial - calorie count - liquid shakes / supplements - will ask family to bring home foods - check OB --> negative Subjective Allergies: Coded Allergies: No Known Allergies (Unverified , 10/07/17) Subjective Feels OK no abd complaints dislikes hospital food wants food Objective Last 24 Hour Vital Signs Date Time Temp Pulse Resp B/P (MAP) Pulse Ox O2 Delivery O2 Flow Rate FiO2 10/29/19 16:00 72 10/29/19 16:00 Nasal Cannula 2.0 Nasal Cannula 2.0 10/29/19 15:55 99.3 76 22 148/73 (98) 95 10/29/19 12:50 139/63 10/29/19 12:00 Nasal Cannula 2.0 Nasal Cannula 2.0 10/29/19 12:00 60 10/29/19 11:55 98.6 68 20 139/63 (88) 94 10/29/19 08:51 71 146/68 10/29/19 08:51 71 146/68 10/29/19 08:00 Nasal Cannula 2.0 Nasal Cannula 2.0 10/29/19 08:00 98.2 68 22 146/68 (94) 97 10/29/19 08:00 71 10/29/19 07:18 100.0 10/29/19 04:00 100.4 70 20 153/78 (103) 99 10/29/19 04:00 Nasal Cannula 2.0 Nasal Cannula 2.0 10/29/19 04:00 77 10/29/19 00:00 Nasal Cannula 2.0 Nasal Cannula 2.0 10/29/19 00:00 98.5 70 22 133/70 (91) 95 10/28/19 23:32 67 10/28/19 21:24 69 147/75 Intake and Output 10/28/19 10/29/19 19:00 07:00 Intake Total 500 ml 300 ml Output Total 400 ml 400 ml Balance 100 ml -100 ml Intake Oral 500 ml 240 ml IV Total 60 ml Output Urine Total 400 ml 400 ml # Voids 2 1 # Bowel Movements 2 Laboratory Tests 10/29/19 01:00: Stool Occult Blood Negative 2/12/20 10:30: Urine Color Pale yellow, Urine Appearance Slightly cloudy, Urine pH 5, Urine Specific [place] 1.010, Urine Protein 3+H, Urine Glucose (UA) Negative, Urine Ketones Negative, Urine Blood 3+H, Urine Nitrite Negative, Urine Bilirubin Negative, Urine Urobilinogen Normal, Urine Leukocyte Esterase 3+H, Urine RBC 2- 4H, Urine WBC 40-60H, Urine Squamous Epithelial Cells Occasional, Urine Bacteria ModerateH Height (Feet): 5 Height (Inches): 10.00 Weight (Pounds): 218 Objective WDWN NCAT supple CTA RR abd soft no edema Naheed Welch MD Oct 29, 2019 21:11
--- NOTE | 2019-10-29 21:16 | General Progress Note ---
Assessment/Plan Problem List: (1) Sepsis ICD Codes: A41.9 - Sepsis, unspecified organism SNOMED: 97211848 (2) Hypoglycemia ICD Codes: E16.2 - Hypoglycemia, unspecified SNOMED: 457460537 (3) Elevated troponin ICD Codes: R79.89 - Other specified abnormal findings of blood chemistry SNOMED: 118276502, 742051902, 740921755 (4) Renal failure (ARF), acute on chronic ICD Codes: N17.9 - Acute kidney failure, unspecified; N18.9 - Chronic kidney disease, unspecified SNOMED: 847724462 Qualifiers: Qualified Codes: N17.9 - Acute kidney failure, unspecified; N18.3 - Chronic kidney disease, stage 3 (moderate) (5) Hypothyroid ICD Codes: E03.9 - Hypothyroidism, unspecified SNOMED: 34695646 (6) HTN (hypertension) ICD Codes: I10 - Essential (primary) hypertension SNOMED: 34460325 (7) Diabetic nephropathy ICD Codes: E11.21 - Type 2 diabetes mellitus with diabetic nephropathy SNOMED: 506421921 (8) Anemia in chronic kidney disease (CKD) ICD Codes: N18.9 - Chronic kidney disease, unspecified; D63.1 - Anemia in chronic kidney disease SNOMED: 846597825 Status: progressing Assessment/Plan: spiked a fever unsafe for dc consulted dr jacobson for fever /sepsis poor appetite nose bleed weak Subjective ROS Limited/Unobtainable: Yes Allergies: Coded Allergies: No Known Allergies (Unverified , 10/07/17) Objective Last 24 Hour Vital Signs Date Time Temp Pulse Resp B/P (MAP) Pulse Ox O2 Delivery O2 Flow Rate FiO2 10/29/19 16:00 72 10/29/19 16:00 Nasal Cannula 2.0 Nasal Cannula 2.0 10/29/19 15:55 99.3 76 22 148/73 (98) 95 10/29/19 12:50 139/63 10/29/19 12:00 Nasal Cannula 2.0 Nasal Cannula 2.0 10/29/19 12:00 60 10/29/19 11:55 98.6 68 20 139/63 (88) 94 10/29/19 08:51 71 146/68 10/29/19 08:51 71 146/68 10/29/19 08:00 Nasal Cannula 2.0 Nasal Cannula 2.0 10/29/19 08:00 98.2 68 22 146/68 (94) 97 10/29/19 08:00 71 10/29/19 07:18 100.0 10/29/19 04:00 100.4 70 20 153/78 (103) 99 10/29/19 04:00 Nasal Cannula 2.0 Nasal Cannula 2.0 10/29/19 04:00 77 10/29/19 00:00 Nasal Cannula 2.0 Nasal Cannula 2.0 10/29/19 00:00 98.5 70 22 133/70 (91) 95 10/28/19 23:32 67 10/28/19 21:24 69 147/75 Intake and Output 10/28/19 10/29/19 19:00 07:00 Intake Total 500 ml 300 ml Output Total 400 ml 400 ml Balance 100 ml -100 ml Intake Oral 500 ml 240 ml IV Total 60 ml Output Urine Total 400 ml 400 ml # Voids 2 1 # Bowel Movements 2 Laboratory Tests 10/29/19 01:00: Stool Occult Blood Negative 10/29/19 10:30: Urine Color Pale yellow, Urine Appearance Slightly cloudy, Urine pH 5, Urine Specific [place] 1.010, Urine Protein 3+H, Urine Glucose (UA) Negative, Urine Ketones Negative, Urine Blood 3+H, Urine Nitrite Negative, Urine Bilirubin Negative, Urine Urobilinogen Normal, Urine Leukocyte Esterase 3+H, Urine RBC 2- 4H, Urine WBC 40-60H, Urine Squamous Epithelial Cells Occasional, Urine Bacteria ModerateH Height (Feet): 5 Height (Inches): 10.00 Weight (Pounds): 218 Neck: supple Cardiovascular: normal rate Respiratory/Chest: lungs clear Abdomen: soft Oni Schilling MD Oct 29, 2019 21:15
[2019-10-29] MEDS: Atorvastatin 80mg tab ORAL SCH (21:29)
[2019-10-29] MEDS: Iron Sucrose 100 MG in NS 55 ML IV SCH (21:30)
[2019-10-29] MEDS: Pantoprazole Inj IVP SCH (22:49)
[2019-10-30] VITALS: BP 148/73
[2019-10-30 04:00] VITALS: BP 135/60
[2019-10-30 05:32] LABS: BASOPHILS % (AUTO) 2.4 % (0.0-2.0); EOSINOPHILS % (AUTO) 1.9 % (0.0-3.0); HEMATOCRIT 25.5 % (42.0-52.0); HEMOGLOBIN 8.7 G/DL (14.2-18.0); LYMPHOCYTES % (AUTO) 15.1 % (20.0-45.0); MEAN CORPUSCULAR VOLUME 98 FL (80-99); MONOCYTES % (AUTO) 16.9 % (1.0-10.0); NEUTROPHILS % (AUTO) 63.8 % (45.0-75.0); PLATELET COUNT 216 K/UL (150-450); RED BLOOD COUNT 2.61 M/UL (4.70-6.10); RED CELL DISTRIBUTION WIDTH 13.3 % (11.6-14.8); WHITE BLOOD COUNT 5.7 K/UL (4.8-10.8)
--- NOTE | 2019-10-30 06:44 | General Progress Note ---
Assessment/Plan Problem List: (1) Hypothyroid ICD Codes: E03.9 - Hypothyroidism, unspecified SNOMED: 06085996 (2) HTN (hypertension) ICD Codes: I10 - Essential (primary) hypertension SNOMED: 38215632 (3) Diabetic nephropathy ICD Codes: E11.21 - Type 2 diabetes mellitus with diabetic nephropathy SNOMED: 657651286 (4) Hypoglycemia ICD Codes: E16.2 - Hypoglycemia, unspecified SNOMED: 100145423 (5) Renal failure (ARF), acute on chronic ICD Codes: N17.9 - Acute kidney failure, unspecified; N18.9 - Chronic kidney disease, unspecified SNOMED: 155823759 Qualifiers: Qualified Codes: N17.9 - Acute kidney failure, unspecified; N18.3 - Chronic kidney disease, stage 3 (moderate) Status: progressing Assessment/Plan: continue LT4 150 mcg daily continue glucose monitoring no need for scheduled diabetic medications hypoglycemia protocol in order Subjective Allergies: Coded Allergies: No Known Allergies (Unverified , 10/07/17) All Systems: reviewed and negative except above Subjective events noted interval notes reviewed glucose values are stable without hypoglycemia Item Value Date Time Bedside Blood Glucose 95 mg/dl 10/30/19 0400 Bedside Blood Glucose 113 mg/dl 10/30/19 0000 Bedside Blood Glucose 140 mg/dl H 10/29/19 2000 Bedside Blood Glucose 143 mg/dl H 10/29/19 1600 Bedside Blood Glucose 95 mg/dl 10/29/19 1206 Bedside Blood Glucose 103 mg/dl 10/29/19 0800 Objective Last 24 Hour Vital Signs Date Time Temp Pulse Resp B/P (MAP) Pulse Ox O2 Delivery O2 Flow Rate FiO2 10/30/19 04:00 Nasal Cannula 2.0 Nasal Cannula 2.0 10/30/19 04:00 77 10/30/19 04:00 99.9 82 24 135/60 (85) 95 10/30/19 00:00 99.4 79 24 148/73 (98) 94 10/30/19 00:00 Nasal Cannula 2.0 Nasal Cannula 2.0 10/30/19 00:00 79 10/30/19 00:00 82 10/29/19 22:01 99.8 10/29/19 21:30 79 154/75 10/29/19 21:30 79 154/75 10/29/19 20:00 100.4 79 24 154/75 (101) 94 10/29/19 20:00 Nasal Cannula 2.0 Nasal Cannula 2.0 10/29/19 19:02 82 10/29/19 16:00 72 10/29/19 16:00 Nasal Cannula 2.0 Nasal Cannula 2.0 10/29/19 15:55 99.3 76 22 148/73 (98) 95 10/29/19 12:50 139/63 10/29/19 12:00 Nasal Cannula 2.0 Nasal Cannula 2.0 10/29/19 12:00 60 10/29/19 11:55 98.6 68 20 139/63 (88) 94 10/29/19 08:51 71 146/68 10/29/19 08:51 71 146/68 10/29/19 08:00 Nasal Cannula 2.0 Nasal Cannula 2.0 10/29/19 08:00 98.2 68 22 146/68 (94) 97 10/29/19 08:00 71 Intake and Output 10/29/19 10/30/19 19:00 07:00 Intake Total 615 ml 180 ml Balance 615 ml 180 ml Intake Oral 560 ml 120 ml IV Total 55 ml 60 ml # Voids 3 2 # Bowel Movements 2 Laboratory Tests 10/29/19 10:30: Urine Color Pale yellow, Urine Appearance Slightly cloudy, Urine pH 5, Urine Specific [place] 1.010, Urine Protein 3+H, Urine Glucose (UA) Negative, Urine Ketones Negative, Urine Blood 3+H, Urine Nitrite Negative, Urine Bilirubin Negative, Urine Urobilinogen Normal, Urine Leukocyte Esterase 3+H, Urine RBC 2- 4H, Urine WBC 40-60H, Urine Squamous Epithelial Cells Occasional, Urine Bacteria ModerateH 10/30/19 04:20: White Blood Count 5.7, Red Blood Count 2.61L, Hemoglobin 8.7L, Hematocrit 25.5L , Mean Corpuscular Volume 98, Mean Corpuscular Hemoglobin 33.2H, Mean Corpuscular Hemoglobin Concent 34.0, Red Cell Distribution Width 13.3, Platelet Count 216, Mean Platelet Volume 6.7, Neutrophils (%) (Auto) 63.8, Lymphocytes (% ) (Auto) 15.1L, Monocytes (%) (Auto) 16.9H, Eosinophils (%) (Auto) 1.9, Basophils (%) (Auto) 2.4H Height (Feet): 5 Height (Inches): 10.00 Weight (Pounds): 218 General Appearance: no apparent distress Neck: normal alignment Cardiovascular: normal rate Respiratory/Chest: decreased breath sounds Abdomen: normal bowel sounds Pelvis: normal external exam Objective Current Medications Medications (Trade) Dose Ordered Sig/Leon Route PRN Reason Start Time Stop Time Status Last Admin Dose Admin Acetaminophen (Tylenol) 500 mg Q4H PRN ORAL Mild Pain/Temp > 100.5 10/24/19 04:30 11/23/19 04:29 10/29/19 21:31 Amlodipine Besylate (Norvasc) 5 mg Q12HR ORAL 10/25/19 21:00 11/24/19 20:59 10/29/19 21:30 Aspirin (Ecotrin) 81 mg DAILY ORAL 10/25/19 09:00 11/24/19 08:59 10/26/19 09:48 Atorvastatin Calcium (Lipitor) 80 mg BEDTIME ORAL 10/24/19 21:00 11/23/19 20:59 10/29/19 21:29 Ceftriaxone Sodium 1 gm/ Dextrose 55 ml @ 110 mls/hr Q24H IVPB 10/29/19 16:00 11/05/19 15:59 10/29/19 15:58 Clopidogrel Bisulfate (Plavix) 75 mg DAILY ORAL 10/25/19 09:00 11/24/19 08:59 10/25/19 09:09 Dextrose (Dextrose 50%) 25 ml Q30M PRN IV Hypoglycemia 10/24/19 05:15 11/23/19 05:14 Dextrose (Dextrose 50%) 50 ml Q30M PRN IV Hypoglycemia 10/24/19 05:15 11/23/19 05:14 Docusate Sodium (Colace) 100 mg TWICE A DAY ORAL 10/24/19 18:00 11/23/19 17:59 10/29/19 17:42 Finasteride (Proscar) 5 mg DAILY ORAL 10/25/19 09:00 11/24/19 08:59 10/29/19 08:52 Furosemide (Lasix) 40 mg DAILY ORAL 10/25/19 10:00 11/24/19 09:59 10/29/19 08:51 Iron Sucrose 100 mg/Sodium Chloride 60 ml @ 240 mls/hr BEDTIME IV 10/26/19 21:00 10/30/19 21:14 10/29/19 21:30 Levothyroxine Sodium (Synthroid) 150 mcg DAILY@0630 ORAL 10/24/19 06:30 11/23/19 06:29 10/30/19 06:38 Metoprolol Tartrate (Lopressor) 25 mg Q12HR ORAL 10/27/19 11:00 11/23/19 10:59 10/29/19 21:30 Mirtazapine (Remeron) 7.5 mg BEDTIME ORAL 10/28/19 21:00 11/27/19 20:59 10/29/19 21:29 Nitroglycerin (Ntg) 1 patch Q24H TDERMAL 10/24/19 12:30 11/23/19 12:29 10/29/19 12:50 Pantoprazole (Protonix) 40 mg EVERY 12 HOURS IVP 10/29/19 22:15 11/28/19 22:14 10/29/19 22:49 Tamsulosin HCl (Flomax) 0.4 mg BID ORAL 10/26/19 18:00 11/23/19 20:59 10/29/19 17:42 Aureliano Estrada MD Oct 30, 2019 06:44
--- NOTE | 2019-10-30 07:56 | NUR ---
HAND-OFF: Report given to Rupesh Lee RN. endorsed plan of care.
[2019-10-30 08:00] VITALS: BP 147/60
--- NOTE | 2019-10-30 08:10 | NUR ---
NURSE NOTES: received pt in the bed, awake, alert, confused, vital signs stable, no co pain, no SOB, skin warm and dry to touch, intact, refuse breakfast, heplock on RT hand patten, bed in low position, call light within reach.
--- NOTE | 2019-10-30 08:30 | Hematology/Onc Progress Note ---
Assessment/Plan Assessment/Plan Assessment and Recs: # Anemia due to underlying GI bleed -- patient presents with hematemesis before and now with barb --> as per GI eval, may need endoscopy --> has been started on ppi --> cea has been ordered --> Hgb goal >7. Transfuse prn. --> Will sign consent if necessary --> Epogen not started. IRON IV x 5 days started --> Consider octreotide gtt as per gi eval --> Medications have been reviewed --> Hgb 8.8 -->8.6-->8.7 # Coagulation defect/Bleeding, multifactorial usually related to poor PO intake versus medications, in this case related to coumadin --> administer Vitamin K if patient is bleeding or FFP if the INR is >10 --> hold off on ffp unless active procedure/bleeding, first begin with vit K 10 --> mixing study as needed --> HAVE STOPPED COUMADIN --> per cards, hold off at this time, is aware of afib hx # Anemia due to folic acid deficiency/iron deficiency as well --> prior folic acid<5 --> recheck levels # Elevated troponin, rising, ?nstemi --> aware --> anticoag as per his recs # Renal failure (ARF), acute on chronic --> per renal Dr. Farr # UTI --> abx as needed # Dvt ppx on scds now The timing of this note does not necessarily reflect the time of the patient was seen. Greatly appreciate consultation. Subjective Constitutional: Denies: no symptoms, chills, fever, malaise, weakness, other HEENT: Denies: no symptoms, eye pain, blurred vision, tearing, double vision, ear pain, ear discharge, nose pain, nose congestion, throat pain, throat swelling, mouth pain, mouth swelling, other Cardiovascular: Denies: no symptoms, chest pain, edema, irregular heart rate, lightheadedness, palpitations, syncope, other Respiratory: Denies: no symptoms, cough, shortness of breath, SOB with excertion, SOB at rest, sputum, wheezing, other Gastrointestinal/Abdominal: Denies: no symptoms, abdomen distended, abdominal pain, black stools, tarry stools, blood in stool, constipated, diarrhea, difficulty swallowing, nausea, poor appetite, poor fluid intake, rectal bleeding , vomiting, other Genitourinary: Denies: no symptoms, burning, discharge, frequency, flank pain, hematuria, incontinence, pain, urgency, other Endocrine: Denies: no symptoms, excessive sweating, flushing, intolerance to cold, intolerance to heat, increased hunger, increased thirst, increased urine, unexplained weight gain, unexplained weight loss, other Allergies: Coded Allergies: No Known Allergies (Unverified , 10/07/17) Subjective 10/27: awake, venous duplex negative, iv iron, nose bleed 10/28: is awake, alert on 2l flow, no bleeding, coags noted 10/29: no major changes, seen by pulm, coag midly elevated, hgb in the 8s 10/30: no events, no bleeding or chills, no major changes, hgb 8.7 Objective Objective Current Medications Medications (Trade) Dose Ordered Sig/Leon Route PRN Reason Start Time Stop Time Status Last Admin Dose Admin Acetaminophen (Tylenol) 500 mg Q4H PRN ORAL Mild Pain/Temp > 100.5 10/24/19 04:30 11/23/19 04:29 10/29/19 21:31 Amlodipine Besylate (Norvasc) 5 mg Q12HR ORAL 10/25/19 21:00 11/24/19 20:59 10/29/19 21:30 Aspirin (Ecotrin) 81 mg DAILY ORAL 10/25/19 09:00 11/24/19 08:59 10/26/19 09:48 Atorvastatin Calcium (Lipitor) 80 mg BEDTIME ORAL 10/24/19 21:00 11/23/19 20:59 10/29/19 21:29 Ceftriaxone Sodium 1 gm/ Dextrose 55 ml @ 110 mls/hr Q24H IVPB 10/29/19 16:00 11/05/19 15:59 10/29/19 15:58 Clopidogrel Bisulfate (Plavix) 75 mg DAILY ORAL 10/25/19 09:00 11/24/19 08:59 10/25/19 09:09 Dextrose (Dextrose 50%) 25 ml Q30M PRN IV Hypoglycemia 10/24/19 05:15 11/23/19 05:14 Dextrose (Dextrose 50%) 50 ml Q30M PRN IV Hypoglycemia 10/24/19 05:15 11/23/19 05:14 Docusate Sodium (Colace) 100 mg TWICE A DAY ORAL 10/24/19 18:00 11/23/19 17:59 10/29/19 17:42 Finasteride (Proscar) 5 mg DAILY ORAL 10/25/19 09:00 11/24/19 08:59 10/29/19 08:52 Furosemide (Lasix) 40 mg DAILY ORAL 10/25/19 10:00 11/24/19 09:59 10/29/19 08:51 Iron Sucrose 100 mg/Sodium Chloride 60 ml @ 240 mls/hr BEDTIME IV 10/26/19 21:00 10/30/19 21:14 10/29/19 21:30 Levothyroxine Sodium (Synthroid) 150 mcg DAILY@0630 ORAL 10/24/19 06:30 11/23/19 06:29 10/30/19 06:38 Metoprolol Tartrate (Lopressor) 25 mg Q12HR ORAL 10/27/19 11:00 11/23/19 10:59 10/29/19 21:30 Mirtazapine (Remeron) 7.5 mg BEDTIME ORAL 10/28/19 21:00 11/27/19 20:59 10/29/19 21:29 Nitroglycerin (Ntg) 1 patch Q24H TDERMAL 10/24/19 12:30 11/23/19 12:29 10/29/19 12:50 Pantoprazole (Protonix) 40 mg EVERY 12 HOURS IVP 10/29/19 22:15 11/28/19 22:14 10/29/19 22:49 Tamsulosin HCl (Flomax) 0.4 mg BID ORAL 10/26/19 18:00 11/23/19 20:59 10/29/19 17:42 Last 24 Hour Vital Signs Date Time Temp Pulse Resp B/P (MAP) Pulse Ox O2 Delivery O2 Flow Rate FiO2 10/30/19 08:00 Nasal Cannula 2.0 Nasal Cannula 2.0 10/30/19 04:00 Nasal Cannula 2.0 Nasal Cannula 2.0 10/30/19 04:00 77 10/30/19 04:00 99.9 82 24 135/60 (85) 95 10/30/19 00:00 99.4 79 24 148/73 (98) 94 10/30/19 00:00 Nasal Cannula 2.0 Nasal Cannula 2.0 10/30/19 00:00 79 10/30/19 00:00 82 10/29/19 22:01 99.8 10/29/19 21:30 79 154/75 10/29/19 21:30 79 154/75 10/29/19 20:00 100.4 79 24 154/75 (101) 94 10/29/19 20:00 Nasal Cannula 2.0 Nasal Cannula 2.0 10/29/19 19:02 82 10/29/19 16:00 72 10/29/19 16:00 Nasal Cannula 2.0 Nasal Cannula 2.0 10/29/19 15:55 99.3 76 22 148/73 (98) 95 10/29/19 12:50 139/63 10/29/19 12:00 Nasal Cannula 2.0 Nasal Cannula 2.0 10/29/19 12:00 60 10/29/19 11:55 98.6 68 20 139/63 (88) 94 10/29/19 08:51 71 146/68 10/29/19 08:51 71 146/68 10/29/19 08:00 Nasal Cannula 2.0 Nasal Cannula 2.0 10/29/19 08:00 98.2 68 22 146/68 (94) 97 10/29/19 08:00 71 10/29/19 04:00 100.4 70 20 153/78 (103) 99 10/29/19 04:00 Nasal Cannula 2.0 Nasal Cannula 2.0 10/29/19 04:00 77 10/29/19 00:00 Nasal Cannula 2.0 Nasal Cannula 2.0 10/29/19 00:00 98.5 70 22 133/70 (91) 95 10/28/19 23:32 67 10/28/19 21:24 69 147/75 10/28/19 20:00 98.6 63 22 147/75 (99) 98 10/28/19 20:00 Room Air Room Air 10/28/19 20:00 69 10/28/19 16:00 98.2 57 20 139/67 (91) 96 10/28/19 16:00 Room Air Room Air 10/28/19 15:28 55 10/28/19 12:31 133/60 2/11/20 12:00 Nasal Cannula 2.0 Nasal Cannula 2.0 10/28/19 12:00 99.8 60 21 133/60 (84) 93 10/28/19 11:41 63 10/28/19 09:02 65 142/73 10/28/19 09:02 65 142/73 Intake and Output 10/29/19 10/30/19 19:00 07:00 Intake Total 615 ml 180 ml Balance 615 ml 180 ml Intake Oral 560 ml 120 ml IV Total 55 ml 60 ml # Voids 3 2 # Bowel Movements 2 Labs Test 10/28/19 09:05 10/28/19 09:35 10/29/19 01:00 10/29/19 10:30 White Blood Count 7.3 K/UL (4.8-10.8) Red Blood Count 2.79 M/UL (4.70-6.10) Hemoglobin 8.9 G/DL (14.2-18.0) Hematocrit 26.8 % (42.0-52.0) Mean Corpuscular Volume 96 FL (80-99) Mean Corpuscular Hemoglobin 32.0 PG (27.0-31.0) Mean Corpuscular Hemoglobin Concent 33.3 G/DL (32.0-36.0) Red Cell Distribution Width 13.0 % (11.6-14.8) Platelet Count 211 K/UL (150-450) Mean Platelet Volume 6.7 FL (6.5-10.1) Neutrophils (%) (Auto) 69.0 % (45.0-75.0) Lymphocytes (%) (Auto) 14.3 % (20.0-45.0) Monocytes (%) (Auto) 12.5 % (1.0-10.0) Eosinophils (%) (Auto) 3.4 % (0.0-3.0) Basophils (%) (Auto) 0.7 % (0.0-2.0) Prothrombin Time 12.2 SEC (9.30-11.50) Prothromb Time International Ratio 1.2 (0.9-1.1) Sodium Level 139 MMOL/L (136-145) Potassium Level 4.2 MMOL/L (3.5-5.1) Chloride Level 107 MMOL/L (98-107) Carbon Dioxide Level 24 MMOL/L (21-32) Anion Gap 8 mmol/L (5-15) Blood Urea Nitrogen 35 mg/dL (7-18) Creatinine 2.4 MG/DL (0.55-1.30) Estimat Glomerular Filtration Rate 27.4 mL/min (>60) Glucose Level 119 MG/DL (74-106) Calcium Level 8.3 MG/DL (8.5-10.1) Troponin I 0.863 ng/mL (0.000-0.056) Stool Occult Blood Negative (NEGATIVE) Urine Color Pale yellow Urine Appearance Slightly cloudy Urine pH 5 (4.5-8.0) Urine Specific [place] 1.010 (1.005-1.035) Urine Protein 3+ (NEGATIVE) Urine Glucose (UA) Negative (NEGATIVE) Urine Ketones Negative (NEGATIVE) Urine Blood 3+ (NEGATIVE) Urine Nitrite Negative (NEGATIVE) Urine Bilirubin Negative (NEGATIVE) Urine Urobilinogen Normal MG/DL (0.0-1.0) Urine Leukocyte Esterase 3+ (NEGATIVE) Urine RBC 2-4 /HPF (0 - 0) Urine WBC 40-60 /HPF (0 - 0) Urine Squamous Epithelial Cells Occasional /LPF Urine Bacteria Moderate /HPF (NONE) Test 10/30/19 04:20 White Blood Count 5.7 K/UL (4.8-10.8) Red Blood Count 2.61 M/UL (4.70-6.10) Hemoglobin 8.7 G/DL (14.2-18.0) Hematocrit 25.5 % (42.0-52.0) Mean Corpuscular Volume 98 FL (80-99) Mean Corpuscular Hemoglobin 33.2 PG (27.0-31.0) Mean Corpuscular Hemoglobin Concent 34.0 G/DL (32.0-36.0) Red Cell Distribution Width 13.3 % (11.6-14.8) Platelet Count 216 K/UL (150-450) Mean Platelet Volume 6.7 FL (6.5-10.1) Neutrophils (%) (Auto) 63.8 % (45.0-75.0) Lymphocytes (%) (Auto) 15.1 % (20.0-45.0) Monocytes (%) (Auto) 16.9 % (1.0-10.0) Eosinophils (%) (Auto) 1.9 % (0.0-3.0) Basophils (%) (Auto) 2.4 % (0.0-2.0) Micro Microbiology Date/Time Source Procedure Growth Status 10/29/19 10:30 Urine,Clean Catch Urine Culture - Preliminary Gram Negative Kan Resulted Height (Feet): 5 Height (Inches): 10.00 Weight (Pounds): 218 Objective PE Vitals: reviewed General Appearance: NAD + chronically ill HEENT: normocephalic, atraumatic ++ biconjunctival hemorrhage-> improved Neck: non-tender, normal alignment Respiratory/Chest: nromal breath sounds bilaterally Cardiovascular/Chest: normal peripheral pulses, normal rate Abdomen: normal bowel sounds, soft, nontender Extremities: normal range of motion, Right arm skin tear, left sided weaknness NEURO: ++ left sided weakness Nate Whyte MD Oct 30, 2019 08:30
--- NOTE | 2019-10-30 09:15 | General Progress Note ---
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 D/w Dr. Hanson and he concurred. Subjective Date patient seen: Oct 30, 2019 Time patient seen: 09:05 - am Allergies: Coded Allergies: No Known Allergies (Unverified , 10/07/17) Subjective REVIEW OF SYSTEMS: Denies rash, fever, chills, sweating, dizziness, drowsiness, blurred vision, sore throat, or change in weight. No shortness of breath or chest pain. No nausea, vomiting, diarrhea, or blood in the stool or urine. No bowel or bladder incontinence. No dysuria. SUBJECTIVE: Patient states that he has no pain at this time. He has no new complaints. Objective Last 24 Hour Vital Signs Date Time Temp Pulse Resp B/P (MAP) Pulse Ox O2 Delivery O2 Flow Rate FiO2 10/30/19 08:00 100.0 94 24 147/60 (89) 94 10/30/19 08:00 Nasal Cannula 2.0 Nasal Cannula 2.0 10/30/19 04:00 Nasal Cannula 2.0 Nasal Cannula 2.0 10/30/19 04:00 77 10/30/19 04:00 99.9 82 24 135/60 (85) 95 10/30/19 00:00 99.4 79 24 148/73 (98) 94 10/30/19 00:00 Nasal Cannula 2.0 Nasal Cannula 2.0 10/30/19 00:00 79 10/30/19 00:00 82 10/29/19 22:01 99.8 10/29/19 21:30 79 154/75 10/29/19 21:30 79 154/75 10/29/19 20:00 100.4 79 24 154/75 (101) 94 10/29/19 20:00 Nasal Cannula 2.0 Nasal Cannula 2.0 10/29/19 19:02 82 10/29/19 16:00 72 10/29/19 16:00 Nasal Cannula 2.0 Nasal Cannula 2.0 10/29/19 15:55 99.3 76 22 148/73 (98) 95 10/29/19 12:50 139/63 10/29/19 12:00 Nasal Cannula 2.0 Nasal Cannula 2.0 10/29/19 12:00 60 10/29/19 11:55 98.6 68 20 139/63 (88) 94 Intake and Output 10/29/19 10/30/19 19:00 07:00 Intake Total 615 ml 180 ml Balance 615 ml 180 ml Intake Oral 560 ml 120 ml IV Total 55 ml 60 ml # Voids 3 2 # Bowel Movements 2 Laboratory Tests 10/29/19 10:30: Urine Color Pale yellow, Urine Appearance Slightly cloudy, Urine pH 5, Urine Specific [place] 1.010, Urine Protein 3+H, Urine Glucose (UA) Negative, Urine Ketones Negative, Urine Blood 3+H, Urine Nitrite Negative, Urine Bilirubin Negative, Urine Urobilinogen Normal, Urine Leukocyte Esterase 3+H, Urine RBC 2- 4H, Urine WBC 40-60H, Urine Squamous Epithelial Cells Occasional, Urine Bacteria ModerateH 10/30/19 04:20: White Blood Count 5.7, Red Blood Count 2.61L, Hemoglobin 8.7L, Hematocrit 25.5L , Mean Corpuscular Volume 98, Mean Corpuscular Hemoglobin 33.2H, Mean Corpuscular Hemoglobin Concent 34.0, Red Cell Distribution Width 13.3, Platelet Count 216, Mean Platelet Volume 6.7, Neutrophils (%) (Auto) 63.8, Lymphocytes (% ) (Auto) 15.1L, Monocytes (%) (Auto) 16.9H, Eosinophils (%) (Auto) 1.9, Basophils (%) (Auto) 2.4H Height (Feet): 5 Height (Inches): 10.00 Weight (Pounds): 218 Objective GENERAL: Alert, awake, and oriented. LUNGS: Decreased breath sounds bilaterally. HEART: S1 and S2 regular. ABDOMEN: Soft, nontender. EXTREMITIES: No cyanosis. No clubbing. NEURO: No changes. Warren Torres Oct 30, 2019 09:15
[2019-10-30] MEDS: Tamsulosin 0.4mg cap ORAL SCH ×2 (09:25→18:30)
[2019-10-30] MEDS: Pantoprazole Inj IVP SCH ×2 (09:25→21:59)
[2019-10-30] MEDS: Docusate 100mg cap ORAL SCH ×2 (09:25→18:30)
[2019-10-30] MEDS: Aspirin EC 81mg tab ORAL SCH (09:31)
[2019-10-30] MEDS: Furosemide 40mg tab ORAL SCH (09:31)
[2019-10-30 10:58] LABS: ANION GAP 9 mmol/L (5-15); BLOOD UREA NITROGEN 40 mg/dL (7-18); CALCIUM 8.1 MG/DL (8.5-10.1); CARBON DIOXIDE 24 MMOL/L (21-32); CHLORIDE 110 MMOL/L (98-107); CREATININE 2.8 MG/DL (0.55-1.30); POTASSIUM 4.3 MMOL/L (3.5-5.1); SODIUM 143 MMOL/L (136-145)
[2019-10-30 11:03] LABS: ALANINE AMINOTRANSFERASE 13 U/L (12-78); ALBUMIN 2.8 G/DL (3.4-5.0); ALBUMIN/GLOBULIN RATIO 0.8 (1.0-2.7); ALKALINE PHOSPHATASE 88 U/L (46-116); ASPARTATE AMINO TRANSFERASE 28 U/L (15-37); BILIRUBIN,TOTAL 0.4 MG/DL (0.2-1.0); PHOSPHORUS 3.2 MG/DL (2.5-4.9)
--- NOTE | 2019-10-30 11:17 | Nephrology Progress Note ---
Assessment/Plan Problem List: (1) Renal failure (ARF), acute on chronic Assessment: Cr stable (2) Elevated troponin (3) Hypoglycemia (4) Hypothyroid (5) HTN (hypertension) (6) Diabetic nephropathy (7) Anemia in chronic kidney disease (CKD) Assessment Urinary retention Renal failure (ARF), acute on chronic Anemia: s/p GI Bleed on anticoagulation h/o Hypertension Elevated troponin h/o Hypothyroid DM- Hypoglycemia on presentation h/o UTI Plan Reinsert Kamara BP management IV Iron watch HR 2D Echo NOTED Kidney MARCO A NOTED Avoid nephrotoxics antibiotics Per orders / per consultants Subjective ROS Limited/Unobtainable: No Constitutional: Reports: malaise, weakness Objective Objective Last 24 Hour Vital Signs Date Time Temp Pulse Resp B/P (MAP) Pulse Ox O2 Delivery O2 Flow Rate FiO2 10/30/19 09:31 94 147/60 10/30/19 09:25 94 147/60 10/30/19 08:00 100.0 94 24 147/60 (89) 94 10/30/19 08:00 85 10/30/19 08:00 Nasal Cannula 2.0 Nasal Cannula 2.0 10/30/19 04:00 Nasal Cannula 2.0 Nasal Cannula 2.0 10/30/19 04:00 77 10/30/19 04:00 99.9 82 24 135/60 (85) 95 10/30/19 00:00 99.4 79 24 148/73 (98) 94 10/30/19 00:00 Nasal Cannula 2.0 Nasal Cannula 2.0 10/30/19 00:00 79 10/30/19 00:00 82 10/29/19 22:01 99.8 10/29/19 21:30 79 154/75 10/29/19 21:30 79 154/75 10/29/19 20:00 100.4 79 24 154/75 (101) 94 10/29/19 20:00 Nasal Cannula 2.0 Nasal Cannula 2.0 10/29/19 19:02 82 10/29/19 16:00 72 10/29/19 16:00 Nasal Cannula 2.0 Nasal Cannula 2.0 10/29/19 15:55 99.3 76 22 148/73 (98) 95 10/29/19 12:50 139/63 10/29/19 12:00 Nasal Cannula 2.0 Nasal Cannula 2.0 10/29/19 12:00 60 10/29/19 11:55 98.6 68 20 139/63 (88) 94 Intake and Output 10/29/19 10/30/19 19:00 07:00 Intake Total 615 ml 180 ml Balance 615 ml 180 ml Intake Oral 560 ml 120 ml IV Total 55 ml 60 ml # Voids 3 2 # Bowel Movements 2 Laboratory Tests 10/30/19 04:20: White Blood Count 5.7, Red Blood Count 2.61L, Hemoglobin 8.7L, Hematocrit 25.5L , Mean Corpuscular Volume 98, Mean Corpuscular Hemoglobin 33.2H, Mean Corpuscular Hemoglobin Concent 34.0, Red Cell Distribution Width 13.3, Platelet Count 216, Mean Platelet Volume 6.7, Neutrophils (%) (Auto) 63.8, Lymphocytes (% ) (Auto) 15.1L, Monocytes (%) (Auto) 16.9H, Eosinophils (%) (Auto) 1.9, Basophils (%) (Auto) 2.4H 10/30/19 10:10: Sodium Level 143, Potassium Level 4.3, Chloride Level 110H, Carbon Dioxide Level 24, Anion Gap 9, Blood Urea Nitrogen 40H, Creatinine 2.8H, Estimat Glomerular Filtration Rate 22.9, Glucose Level 122H, Calcium Level 8.1L, Phosphorus Level 3.2, Magnesium Level 1.6L, Total Bilirubin 0.4, Aspartate Amino Transf (AST/SGOT) 28, Alanine Aminotransferase (ALT/SGPT) 13, Alkaline Phosphatase 88, Troponin I [Pending], Total Protein 6.4, Albumin 2.8L, Globulin 3.6, Albumin/Globulin Ratio 0.8L Height (Feet): 5 Height (Inches): 10.00 Weight (Pounds): 218 General Appearance: no apparent distress, lethargic Cardiovascular: tachycardia Respiratory/Chest: decreased breath sounds Abdomen: distended Objective no change Rafa Farr MD Oct 30, 2019 11:17
[2019-10-30 12:00] VITALS: BP 141/68
[2019-10-30] MEDS: Nitroglycerin Patch 0.4mg TDERMAL SCH (12:39)
--- NOTE | 2019-10-30 12:42 | NUR ---
CASE MANAGEMENT: REVIEW 10/30/2019 SI:SEPSIS. Renal failure (ARF), acute on chronic. T 100 HR 94 RR 24 B/P 147/60 SATS 94% ON 2L/NC LABS: CL 110 BUN 40 CR 2.8 GLU 122 CA 8.1 MG 1.6 TROPONIN 0.835 ABGs PO2 62.5 O2 SATS 91.2 IS:PROTONIX IV Q12H LIPITOR PO QHS VENOFER IV QHS REMERON PO QHS FLOMAX PO BID ASA PO QD PLAVIX PO QD PROSCAR PO QD LASIX PO QD NORVASC PO Q12H LOPRESSOR PO Q12H CEFTRIAXONE IV Q24H SDU DCP: [facility]
[2019-10-30] MEDS: Albuterol/Ipratropium 3ml neb HHN SCH ×2 (12:45→18:43)
--- NOTE | 2019-10-30 13:00 | NUR ---
INSURANCE REVIEW HAVE BEEN FAXED TO: [facility] REF# [id number] #[phone] FAX#[phone] REVIEWS/CLINICALS
--- NOTE | 2019-10-30 13:11 | Infectious Diseases Prog Note ---
Assessment/Plan Assessment/Plan IMPRESSION: Fever, Urinary tract infection. Diabetes mellitus with hyperglycemia, anemia, acute renal failure, chronic kidney disease, BPH, hypertension, hypothyroidism. VRE carrier RECOMMENDATION: We will start patient on ceftriaxone. We will follow up blood and urine cultures. Subjective ROS Limited/Unobtainable: No Constitutional: Reports: fever, other - low grade Respiratory: Reports: no symptoms Gastrointestinal/Abdominal: Reports: no symptoms Genitourinary: Reports: frequency Allergies: Coded Allergies: No Known Allergies (Unverified , 10/07/17) Objective Vital Signs Last 24 Hour Vital Signs Date Time Temp Pulse Resp B/P (MAP) Pulse Ox O2 Delivery O2 Flow Rate FiO2 10/30/19 12:52 68 22 96 Nasal Cannula 4.0 36 10/30/19 12:50 67 22 100 Nasal Cannula 4.0 36 65 22 96 10/30/19 12:49 96 Nasal Cannula 4.0 36 10/30/19 12:39 141/68 10/30/19 12:00 Nasal Cannula 4.0 Nasal Cannula 2.0 10/30/19 12:00 69 10/30/19 09:31 94 147/60 10/30/19 09:25 94 147/60 10/30/19 08:00 100.0 94 24 147/60 (89) 94 10/30/19 08:00 85 10/30/19 08:00 Nasal Cannula 2.0 Nasal Cannula 2.0 10/30/19 04:00 Nasal Cannula 2.0 Nasal Cannula 2.0 10/30/19 04:00 77 10/30/19 04:00 99.9 82 24 135/60 (85) 95 10/30/19 00:00 99.4 79 24 148/73 (98) 94 10/30/19 00:00 Nasal Cannula 2.0 Nasal Cannula 2.0 10/30/19 00:00 79 10/30/19 00:00 82 10/29/19 22:01 99.8 10/29/19 21:30 79 154/75 10/29/19 21:30 79 154/75 10/29/19 20:00 100.4 79 24 154/75 (101) 94 10/29/19 20:00 Nasal Cannula 2.0 Nasal Cannula 2.0 10/29/19 19:02 82 10/29/19 16:00 72 10/29/19 16:00 Nasal Cannula 2.0 Nasal Cannula 2.0 10/29/19 15:55 99.3 76 22 148/73 (98) 95 Height (Feet): 5 Height (Inches): 10.00 Weight (Pounds): 218 General Appearance: no acute distress HEENT: mucous membranes moist Respiratory/Chest: lungs clear Cardiovascular: normal rate Abdomen: soft, non tender Extremities: no edema, other - R big toe amputation, left third toe amputation Neurologic/Psychiatric: alert, oriented x 3, responsive Microbiology Date/Time Source Procedure Growth Status 10/29/19 10:30 Urine,Clean Catch Urine Culture - Preliminary Gram Negative Kan Resulted Laboratory Tests Test 10/30/19 04:20 10/30/19 10:10 10/30/19 11:30 White Blood Count 5.7 K/UL (4.8-10.8) Red Blood Count 2.61 M/UL (4.70-6.10) L Hemoglobin 8.7 G/DL (14.2-18.0) L Hematocrit 25.5 % (42.0-52.0) L Mean Corpuscular Volume 98 FL (80-99) Mean Corpuscular Hemoglobin 33.2 PG (27.0-31.0) H Mean Corpuscular Hemoglobin Concent 34.0 G/DL (32.0-36.0) Red Cell Distribution Width 13.3 % (11.6-14.8) Platelet Count 216 K/UL (150-450) Mean Platelet Volume 6.7 FL (6.5-10.1) Neutrophils (%) (Auto) 63.8 % (45.0-75.0) Lymphocytes (%) (Auto) 15.1 % (20.0-45.0) L Monocytes (%) (Auto) 16.9 % (1.0-10.0) H Eosinophils (%) (Auto) 1.9 % (0.0-3.0) Basophils (%) (Auto) 2.4 % (0.0-2.0) H Sodium Level 143 MMOL/L (136-145) Potassium Level 4.3 MMOL/L (3.5-5.1) Chloride Level 110 MMOL/L (98-107) H Carbon Dioxide Level 24 MMOL/L (21-32) Anion Gap 9 mmol/L (5-15) Blood Urea Nitrogen 40 mg/dL (7-18) H Creatinine 2.8 MG/DL (0.55-1.30) H Estimat Glomerular Filtration Rate 22.9 mL/min (>60) Glucose Level 122 MG/DL (74-106) H Calcium Level 8.1 MG/DL (8.5-10.1) L Phosphorus Level 3.2 MG/DL (2.5-4.9) Magnesium Level 1.6 MG/DL (1.8-2.4) L Total Bilirubin 0.4 MG/DL (0.2-1.0) Aspartate Amino Transf (AST/SGOT) 28 U/L (15-37) Alanine Aminotransferase (ALT/SGPT) 13 U/L (12-78) Alkaline Phosphatase 88 U/L (46-116) Troponin I 0.835 ng/mL (0.000-0.056) Total Protein 6.4 G/DL (6.4-8.2) Albumin 2.8 G/DL (3.4-5.0) L Globulin 3.6 g/dL Albumin/Globulin Ratio 0.8 (1.0-2.7) L Arterial Blood pH 7.364 (7.350-7.450) Arterial Blood Partial Pressure CO2 42.9 mmHg (35.0-45.0) Arterial Blood Partial Pressure O2 62.5 mmHg (75.0-100.0) L Arterial Blood HCO3 23.9 mmol/L (22.0-26.0) Arterial Blood Oxygen Saturation 91.2 % (95-100) L Arterial Blood Base Excess -1.4 (-2-2) Gael Test Positive Current Medications Medications (Trade) Dose Ordered Sig/Leon Route PRN Reason Start Time Stop Time Status Last Admin Dose Admin Acetaminophen (Tylenol) 500 mg Q4H PRN ORAL Mild Pain/Temp > 100.5 10/24/19 04:30 11/23/19 04:29 10/29/19 21:31 Albuterol/ Ipratropium (Albuterol/ Ipratropium) 3 ml Q6HRT HHN 10/30/19 13:00 11/04/19 12:59 10/30/19 12:45 Amlodipine Besylate (Norvasc) 5 mg Q12HR ORAL 10/25/19 21:00 11/24/19 20:59 10/30/19 09:31 Aspirin (Ecotrin) 81 mg DAILY ORAL 10/25/19 09:00 11/24/19 08:59 10/30/19 09:31 Atorvastatin Calcium (Lipitor) 80 mg BEDTIME ORAL 10/24/19 21:00 11/23/19 20:59 10/29/19 21:29 Ceftriaxone Sodium 1 gm/ Dextrose 55 ml @ 110 mls/hr Q24H IVPB 10/29/19 16:00 11/05/19 15:59 10/29/19 15:58 Clopidogrel Bisulfate (Plavix) 75 mg DAILY ORAL 10/25/19 09:00 11/24/19 08:59 10/25/19 09:09 Dextrose (Dextrose 50%) 25 ml Q30M PRN IV Hypoglycemia 10/24/19 05:15 11/23/19 05:14 Dextrose (Dextrose 50%) 50 ml Q30M PRN IV Hypoglycemia 10/24/19 05:15 11/23/19 05:14 Docusate Sodium (Colace) 100 mg TWICE A DAY ORAL 10/24/19 18:00 11/23/19 17:59 10/30/19 09:25 Finasteride (Proscar) 5 mg DAILY ORAL 10/25/19 09:00 11/24/19 08:59 10/30/19 09:30 Furosemide (Lasix) 40 mg DAILY ORAL 10/25/19 10:00 11/24/19 09:59 10/30/19 09:31 Iron Sucrose 100 mg/Sodium Chloride 60 ml @ 240 mls/hr BEDTIME IV 10/26/19 21:00 10/30/19 21:14 10/29/19 21:30 Levothyroxine Sodium (Synthroid) 150 mcg DAILY@0630 ORAL 10/24/19 06:30 11/23/19 06:29 10/30/19 06:38 Magnesium Sulfate 100 ml @ 100 mls/hr Q1H IVPB 10/30/19 11:30 10/30/19 13:29 10/30/19 12:38 Metoprolol Tartrate (Lopressor) 25 mg Q12HR ORAL 10/27/19 11:00 11/23/19 10:59 10/30/19 09:25 Mirtazapine (Remeron) 7.5 mg BEDTIME ORAL 10/28/19 21:00 11/27/19 20:59 10/29/19 21:29 Nitroglycerin (Ntg) 1 patch Q24H TDERMAL 10/24/19 12:30 11/23/19 12:29 10/30/19 12:39 Pantoprazole (Protonix) 40 mg EVERY 12 HOURS IVP 10/29/19 22:15 11/28/19 22:14 10/30/19 09:25 Tamsulosin HCl (Flomax) 0.4 mg BID ORAL 10/26/19 18:00 11/23/19 20:59 10/30/19 09:25 Troy Yeboah MD Oct 30, 2019 13:10
--- NOTE | 2019-10-30 14:24 | NUR ---
NURSE NOTES: pt resting, vital signs stable, no co pain, ABG done, dr. Cox notified with result, O2 4L now, continue monitoring.
--- NOTE | 2019-10-30 14:39 | NUR ---
NURSE NOTES:WOUND CARE NOTES: Pt's heels assessed with primary nurse in attendance. Per Primary nurse pt has been moving feet restlessly in bed and Primary nurse noted heels redness during routine skin assessment this a.m. Both heels noted to be soft with non-blanching erythema. Pt did not exhibit any distress when each heel palpated. Cavilon Skin Barrier applied to both heels and each heel covered with Optifoam drsg. Both heels floated off mattress with pillow. Tx.Plan:Apply Cavilon Skin Barrier to both heels. Cover each heel with Optifoam drsg. Change every 7 days and prn. Off-load heels with pillow.
[2019-10-30 16:00] VITALS: BP 143/65
[2019-10-30] MEDS: cefTRIAXone 1 GM in D5W 55 ML IVPB SCH (16:19)
--- NOTE | 2019-10-30 16:32 | Cardiac Electrophysiology PN ---
Assessment/Plan Assessment/Plan 1. NSTEMI. Troponin is 1.8. Down to 0.86 and no CP. ECG no acute ischemia and Echo Nl EF. Likely due to renal failure. Has history of MT in July 2019 with troponin critical of more than 24. EF of 60%. Resume aspirin and plavix On Lopressor 25 bid, and statin. 2. Questionable atrial fibrillation or DVT, currently remain in sinus rhythm. He used to be on anticoagulation. 3. Hypothyroidism, on Synthroid. 4. History of CVA with left hemiplegia.On Plavix 5. Nose bleed.Stopped. FU DR Brown 6. Fever. LAMIN RN Subjective Subjective In SR. Aspirin and Plavix still held Objective Last 24 Hour Vital Signs Date Time Temp Pulse Resp B/P (MAP) Pulse Ox O2 Delivery O2 Flow Rate FiO2 10/30/19 16:00 Nasal Cannula 4.0 Nasal Cannula 2.0 10/30/19 12:52 68 22 96 Nasal Cannula 4.0 36 10/30/19 12:50 67 22 100 Nasal Cannula 4.0 36 65 22 96 10/30/19 12:49 96 Nasal Cannula 4.0 36 10/30/19 12:39 141/68 10/30/19 12:00 Nasal Cannula 4.0 Nasal Cannula 2.0 10/30/19 12:00 99.4 66 21 141/68 (92) 96 10/30/19 12:00 69 10/30/19 09:31 94 147/60 10/30/19 09:25 94 147/60 10/30/19 08:00 100.0 94 24 147/60 (89) 94 10/30/19 08:00 85 10/30/19 08:00 Nasal Cannula 2.0 Nasal Cannula 2.0 10/30/19 04:00 Nasal Cannula 2.0 Nasal Cannula 2.0 10/30/19 04:00 77 10/30/19 04:00 99.9 82 24 135/60 (85) 95 10/30/19 00:00 99.4 79 24 148/73 (98) 94 10/30/19 00:00 Nasal Cannula 2.0 Nasal Cannula 2.0 10/30/19 00:00 79 10/30/19 00:00 82 10/29/19 22:01 99.8 10/29/19 21:30 79 154/75 10/29/19 21:30 79 154/75 10/29/19 20:00 100.4 79 24 154/75 (101) 94 10/29/19 20:00 Nasal Cannula 2.0 Nasal Cannula 2.0 10/29/19 19:02 82 Intake and Output 10/29/19 10/30/19 19:00 07:00 Intake Total 615 ml 180 ml Balance 615 ml 180 ml Intake Oral 560 ml 120 ml IV Total 55 ml 60 ml # Voids 3 2 # Bowel Movements 2 Laboratory Tests Test 10/30/19 04:20 10/30/19 10:10 10/30/19 11:30 White Blood Count 5.7 K/UL (4.8-10.8) Red Blood Count 2.61 M/UL (4.70-6.10) L Hemoglobin 8.7 G/DL (14.2-18.0) L Hematocrit 25.5 % (42.0-52.0) L Mean Corpuscular Volume 98 FL (80-99) Mean Corpuscular Hemoglobin 33.2 PG (27.0-31.0) H Mean Corpuscular Hemoglobin Concent 34.0 G/DL (32.0-36.0) Red Cell Distribution Width 13.3 % (11.6-14.8) Platelet Count 216 K/UL (150-450) Mean Platelet Volume 6.7 FL (6.5-10.1) Neutrophils (%) (Auto) 63.8 % (45.0-75.0) Lymphocytes (%) (Auto) 15.1 % (20.0-45.0) L Monocytes (%) (Auto) 16.9 % (1.0-10.0) H Eosinophils (%) (Auto) 1.9 % (0.0-3.0) Basophils (%) (Auto) 2.4 % (0.0-2.0) H Sodium Level 143 MMOL/L (136-145) Potassium Level 4.3 MMOL/L (3.5-5.1) Chloride Level 110 MMOL/L (98-107) H Carbon Dioxide Level 24 MMOL/L (21-32) Anion Gap 9 mmol/L (5-15) Blood Urea Nitrogen 40 mg/dL (7-18) H Creatinine 2.8 MG/DL (0.55-1.30) H Estimat Glomerular Filtration Rate 22.9 mL/min (>60) Glucose Level 122 MG/DL (74-106) H Calcium Level 8.1 MG/DL (8.5-10.1) L Phosphorus Level 3.2 MG/DL (2.5-4.9) Magnesium Level 1.6 MG/DL (1.8-2.4) L Total Bilirubin 0.4 MG/DL (0.2-1.0) Aspartate Amino Transf (AST/SGOT) 28 U/L (15-37) Alanine Aminotransferase (ALT/SGPT) 13 U/L (12-78) Alkaline Phosphatase 88 U/L (46-116) Troponin I 0.835 ng/mL (0.000-0.056) Total Protein 6.4 G/DL (6.4-8.2) Albumin 2.8 G/DL (3.4-5.0) L Globulin 3.6 g/dL Albumin/Globulin Ratio 0.8 (1.0-2.7) L Arterial Blood pH 7.364 (7.350-7.450) Arterial Blood Partial Pressure CO2 42.9 mmHg (35.0-45.0) Arterial Blood Partial Pressure O2 62.5 mmHg (75.0-100.0) L Arterial Blood HCO3 23.9 mmol/L (22.0-26.0) Arterial Blood Oxygen Saturation 91.2 % (95-100) L Arterial Blood Base Excess -1.4 (-2-2) Gael Test Positive Microbiology Date/Time Source Procedure Growth Status 10/29/19 10:30 Urine,Clean Catch Urine Culture - Preliminary Gram Negative Kan Resulted Objective HEAD AND NECK: No JVD. LUNGS: Clear. CARDIOVASCULAR: Regular S1 and S2 with no gallop. ABDOMEN: Soft. EXTREMITIES: Left hemiplegia with contraction of left arm. Castillo Bazan MD Oct 30, 2019 16:32
--- NOTE | 2019-10-30 17:40 | Pulmonology Progress Note ---
Assessment/Plan Assessment/Plan IMPRESSION: 1. Mild pulmonary vascular congestion. 2. Hypertension. 3. Diabetes mellitus. 4. Previous CVA. 5. Hypoglycemia. 6. Hypoxemia. 7. Epistaxis DISCUSSION: Continue low flow O2 Continue diuresis OK to dc back to snf, once epistaxis resolves. ABG reviewed, FiO2 increased Janes Cox M.D. Subjective Interval Events: more lethargic today, epistaxis and leukocytosis noted Constitutional: Reports: no symptoms HEENT: Repors: no symptoms Respiratory: Reports: no symptoms Cardiovascular: Reports: no symptoms Allergies: Coded Allergies: No Known Allergies (Unverified , 10/07/17) Objective Last 24 Hour Vital Signs Date Time Temp Pulse Resp B/P (MAP) Pulse Ox O2 Delivery O2 Flow Rate FiO2 10/30/19 16:00 98.6 62 22 143/65 (91) 92 10/30/19 16:00 Nasal Cannula 4.0 Nasal Cannula 2.0 10/30/19 16:00 63 10/30/19 12:52 68 22 96 Nasal Cannula 4.0 36 10/30/19 12:50 67 22 100 Nasal Cannula 4.0 36 65 22 96 10/30/19 12:49 96 Nasal Cannula 4.0 36 10/30/19 12:39 141/68 10/30/19 12:00 Nasal Cannula 4.0 Nasal Cannula 2.0 10/30/19 12:00 99.4 66 21 141/68 (92) 96 10/30/19 12:00 69 10/30/19 09:31 94 147/60 10/30/19 09:25 94 147/60 10/30/19 08:00 100.0 94 24 147/60 (89) 94 10/30/19 08:00 85 10/30/19 08:00 Nasal Cannula 2.0 Nasal Cannula 2.0 10/30/19 04:00 Nasal Cannula 2.0 Nasal Cannula 2.0 10/30/19 04:00 77 10/30/19 04:00 99.9 82 24 135/60 (85) 95 10/30/19 00:00 99.4 79 24 148/73 (98) 94 2/13/20 00:00 Nasal Cannula 2.0 Nasal Cannula 2.0 10/30/19 00:00 79 10/30/19 00:00 82 10/29/19 22:01 99.8 10/29/19 21:30 79 154/75 10/29/19 21:30 79 154/75 10/29/19 20:00 100.4 79 24 154/75 (101) 94 10/29/19 20:00 Nasal Cannula 2.0 Nasal Cannula 2.0 10/29/19 19:02 82 Intake and Output 10/29/19 10/30/19 19:00 07:00 Intake Total 615 ml 180 ml Balance 615 ml 180 ml Intake Oral 560 ml 120 ml IV Total 55 ml 60 ml # Voids 3 2 # Bowel Movements 2 General Appearance: no acute distress HEENT: normocephalic Respiratory/Chest: chest wall non-tender, lungs clear Cardiovascular: normal peripheral pulses, normal rate Abdomen: normal bowel sounds Microbiology Date/Time Source Procedure Growth Status 10/29/19 10:30 Urine,Clean Catch Urine Culture - Preliminary Gram Negative Kan Resulted Laboratory Tests 10/30/19 04:20: White Blood Count 5.7, Red Blood Count 2.61L, Hemoglobin 8.7L, Hematocrit 25.5L , Mean Corpuscular Volume 98, Mean Corpuscular Hemoglobin 33.2H, Mean Corpuscular Hemoglobin Concent 34.0, Red Cell Distribution Width 13.3, Platelet Count 216, Mean Platelet Volume 6.7, Neutrophils (%) (Auto) 63.8, Lymphocytes (% ) (Auto) 15.1L, Monocytes (%) (Auto) 16.9H, Eosinophils (%) (Auto) 1.9, Basophils (%) (Auto) 2.4H 10/30/19 10:10: Sodium Level 143, Potassium Level 4.3, Chloride Level 110H, Carbon Dioxide Level 24, Anion Gap 9, Blood Urea Nitrogen 40H, Creatinine 2.8H, Estimat Glomerular Filtration Rate 22.9, Glucose Level 122H, Calcium Level 8.1L, Phosphorus Level 3.2, Magnesium Level 1.6L, Total Bilirubin 0.4, Aspartate Amino Transf (AST/SGOT) 28, Alanine Aminotransferase (ALT/SGPT) 13, Alkaline Phosphatase 88, Troponin I 0.835H, Total Protein 6.4, Albumin 2.8L, Globulin 3.6 , Albumin/Globulin Ratio 0.8L 10/30/19 11:30: Arterial Blood pH 7.364, Arterial Blood Partial Pressure CO2 42.9, Arterial Blood Partial Pressure O2 62.5L, Arterial Blood HCO3 23.9, Arterial Blood Oxygen Saturation 91.2L, Arterial Blood Base Excess -1.4, Gael Test Positive Current Medications Medications (Trade) Dose Ordered Sig/Leon Route PRN Reason Start Time Stop Time Status Last Admin Dose Admin Acetaminophen (Tylenol) 500 mg Q4H PRN ORAL Mild Pain/Temp > 100.5 10/24/19 04:30 11/23/19 04:29 10/29/19 21:31 Albuterol/ Ipratropium (Albuterol/ Ipratropium) 3 ml Q6HRT HHN 10/30/19 13:00 11/04/19 12:59 10/30/19 12:45 Amlodipine Besylate (Norvasc) 5 mg Q12HR ORAL 10/25/19 21:00 11/24/19 20:59 10/30/19 09:31 Aspirin (Ecotrin) 81 mg DAILY ORAL 10/25/19 09:00 11/24/19 08:59 10/30/19 09:31 Atorvastatin Calcium (Lipitor) 80 mg BEDTIME ORAL 10/24/19 21:00 11/23/19 20:59 10/29/19 21:29 Ceftriaxone Sodium 1 gm/ Dextrose 55 ml @ 110 mls/hr Q24H IVPB 10/29/19 16:00 11/05/19 15:59 10/30/19 16:19 Clopidogrel Bisulfate (Plavix) 75 mg DAILY ORAL 10/25/19 09:00 11/24/19 08:59 10/25/19 09:09 Dextrose (Dextrose 50%) 25 ml Q30M PRN IV Hypoglycemia 10/24/19 05:15 11/23/19 05:14 Dextrose (Dextrose 50%) 50 ml Q30M PRN IV Hypoglycemia 10/24/19 05:15 11/23/19 05:14 Docusate Sodium (Colace) 100 mg TWICE A DAY ORAL 10/24/19 18:00 11/23/19 17:59 10/30/19 09:25 Finasteride (Proscar) 5 mg DAILY ORAL 10/25/19 09:00 11/24/19 08:59 10/30/19 09:30 Furosemide (Lasix) 40 mg DAILY ORAL 10/25/19 10:00 11/24/19 09:59 10/30/19 09:31 Iron Sucrose 100 mg/Sodium Chloride 60 ml @ 240 mls/hr BEDTIME IV 10/26/19 21:00 10/30/19 21:14 10/29/19 21:30 Levothyroxine Sodium (Synthroid) 150 mcg DAILY@0630 ORAL 10/24/19 06:30 11/23/19 06:29 10/30/19 06:38 Metoprolol Tartrate (Lopressor) 25 mg Q12HR ORAL 10/27/19 11:00 11/23/19 10:59 10/30/19 09:25 Mirtazapine (Remeron) 7.5 mg BEDTIME ORAL 10/28/19 21:00 11/27/19 20:59 10/29/19 21:29 Nitroglycerin (Ntg) 1 patch Q24H TDERMAL 10/24/19 12:30 11/23/19 12:29 10/30/19 12:39 Pantoprazole (Protonix) 40 mg EVERY 12 HOURS IVP 10/29/19 22:15 11/28/19 22:14 10/30/19 09:25 Tamsulosin HCl (Flomax) 0.4 mg BID ORAL 10/26/19 18:00 11/23/19 20:59 10/30/19 09:25 Janes Cox MD Oct 30, 2019 17:40
--- NOTE | 2019-10-30 19:15 | NUR ---
NURSE NOTES: received pt from LOU Lee. pt in bed, eyes closed, able to respond to verbal commands, A/O x 2, denies pain at this time. on room air, saturation at 94%, will place on 2L/NC. no s/s of respiratory distress noted. no acute cardiac distress noted at this time. urinal at bedside. Rt hand #22 g IV site is patent and intact. Bed in lowest position and locked, siderails up X3, call light within reach. Bed alarm engaged. will continue POC
--- NOTE | 2019-10-30 19:26 | NUR ---
HAND-OFF: Report given to SHIV BLAKE, no distress at this time.
--- NOTE | 2019-10-30 19:55 | General Progress Note ---
Assessment/Plan Assessment/Plan: Assessment - Anorexia, appears to be related to food choices - Azotemia - anemia - Functional decline - Elevated Troponin - hypothyroid Recommendations - Remeron trial - calorie count - liquid shakes / supplements - will ask family to bring home foods - check OB --> negative Subjective Allergies: Coded Allergies: No Known Allergies (Unverified , 10/07/17) Subjective Feels OK no abd complaints dislikes hospital food wants food Objective Last 24 Hour Vital Signs Date Time Temp Pulse Resp B/P (MAP) Pulse Ox O2 Delivery O2 Flow Rate FiO2 10/30/19 18:43 96 Nasal Cannula 4.0 36 10/30/19 18:43 67 20 96 Nasal Cannula 4.0 36 10/30/19 18:43 67 17 98 Nasal Cannula 4.0 36 67 20 96 10/30/19 16:00 98.6 62 22 143/65 (91) 92 10/30/19 16:00 Nasal Cannula 4.0 Nasal Cannula 2.0 10/30/19 16:00 63 10/30/19 12:52 68 22 96 Nasal Cannula 4.0 36 10/30/19 12:50 67 22 100 Nasal Cannula 4.0 36 65 22 96 10/30/19 12:49 96 Nasal Cannula 4.0 36 10/30/19 12:39 141/68 10/30/19 12:00 Nasal Cannula 4.0 Nasal Cannula 2.0 10/30/19 12:00 99.4 66 21 141/68 (92) 96 10/30/19 12:00 69 10/30/19 09:31 94 147/60 10/30/19 09:25 94 147/60 10/30/19 08:00 100.0 94 24 147/60 (89) 94 10/30/19 08:00 85 10/30/19 08:00 Nasal Cannula 2.0 Nasal Cannula 2.0 10/30/19 04:00 Nasal Cannula 2.0 Nasal Cannula 2.0 10/30/19 04:00 77 10/30/19 04:00 99.9 82 24 135/60 (85) 95 10/30/19 00:00 99.4 79 24 148/73 (98) 94 10/30/19 00:00 Nasal Cannula 2.0 Nasal Cannula 2.0 10/30/19 00:00 79 10/30/19 00:00 82 2/12/20 22:01 99.8 10/29/19 21:30 79 154/75 10/29/19 21:30 79 154/75 10/29/19 20:00 100.4 79 24 154/75 (101) 94 10/29/19 20:00 Nasal Cannula 2.0 Nasal Cannula 2.0 Intake and Output 10/29/19 10/30/19 19:00 07:00 Intake Total 615 ml 180 ml Balance 615 ml 180 ml Intake Oral 560 ml 120 ml IV Total 55 ml 60 ml # Voids 3 2 # Bowel Movements 2 Laboratory Tests 10/30/19 04:20: White Blood Count 5.7, Red Blood Count 2.61L, Hemoglobin 8.7L, Hematocrit 25.5L , Mean Corpuscular Volume 98, Mean Corpuscular Hemoglobin 33.2H, Mean Corpuscular Hemoglobin Concent 34.0, Red Cell Distribution Width 13.3, Platelet Count 216, Mean Platelet Volume 6.7, Neutrophils (%) (Auto) 63.8, Lymphocytes (% ) (Auto) 15.1L, Monocytes (%) (Auto) 16.9H, Eosinophils (%) (Auto) 1.9, Basophils (%) (Auto) 2.4H 10/30/19 10:10: Sodium Level 143, Potassium Level 4.3, Chloride Level 110H, Carbon Dioxide Level 24, Anion Gap 9, Blood Urea Nitrogen 40H, Creatinine 2.8H, Estimat Glomerular Filtration Rate 22.9, Glucose Level 122H, Calcium Level 8.1L, Phosphorus Level 3.2, Magnesium Level 1.6L, Total Bilirubin 0.4, Aspartate Amino Transf (AST/SGOT) 28, Alanine Aminotransferase (ALT/SGPT) 13, Alkaline Phosphatase 88, Troponin I 0.835H, Total Protein 6.4, Albumin 2.8L, Globulin 3.6 , Albumin/Globulin Ratio 0.8L 10/30/19 11:30: Arterial Blood pH 7.364, Arterial Blood Partial Pressure CO2 42.9, Arterial Blood Partial Pressure O2 62.5L, Arterial Blood HCO3 23.9, Arterial Blood Oxygen Saturation 91.2L, Arterial Blood Base Excess -1.4, Gael Test Positive Height (Feet): 5 Height (Inches): 10.00 Weight (Pounds): 218 Objective WDWN NCAT supple CTA RR abd soft no edema Naheed Welch MD Oct 30, 2019 19:55
[2019-10-30 20:00] VITALS: BP 147/60
--- NOTE | 2019-10-30 20:56 | General Progress Note ---
Assessment/Plan Problem List: (1) Sepsis ICD Codes: A41.9 - Sepsis, unspecified organism SNOMED: 31259061 (2) Hypoglycemia ICD Codes: E16.2 - Hypoglycemia, unspecified SNOMED: 854724575 (3) Elevated troponin ICD Codes: R79.89 - Other specified abnormal findings of blood chemistry SNOMED: 629802374, 265535562, 245226417 (4) Renal failure (ARF), acute on chronic ICD Codes: N17.9 - Acute kidney failure, unspecified; N18.9 - Chronic kidney disease, unspecified SNOMED: 094343833 Qualifiers: Qualified Codes: N17.9 - Acute kidney failure, unspecified; N18.3 - Chronic kidney disease, stage 3 (moderate) (5) Hypothyroid ICD Codes: E03.9 - Hypothyroidism, unspecified SNOMED: 22451648 (6) HTN (hypertension) ICD Codes: I10 - Essential (primary) hypertension SNOMED: 20600200 (7) Diabetic nephropathy ICD Codes: E11.21 - Type 2 diabetes mellitus with diabetic nephropathy SNOMED: 605870426 (8) Anemia in chronic kidney disease (CKD) ICD Codes: N18.9 - Chronic kidney disease, unspecified; D63.1 - Anemia in chronic kidney disease SNOMED: 589733345 Assessment/Plan: is getting for lethargic very concerned about his health and condition and relayed my concern to tea also consulted dr galvin for ams however he declined to see so consulted dr green trop is trending down mi consulted dr jacobson for fever /sepsis poor appetite nose bleed weak Subjective ROS Limited/Unobtainable: Yes Allergies: Coded Allergies: No Known Allergies (Unverified , 10/07/17) Objective Last 24 Hour Vital Signs Date Time Temp Pulse Resp B/P (MAP) Pulse Ox O2 Delivery O2 Flow Rate FiO2 10/30/19 20:00 Nasal Cannula 4.0 Nasal Cannula 2.0 10/30/19 18:43 96 Nasal Cannula 4.0 36 10/30/19 18:43 67 20 96 Nasal Cannula 4.0 36 10/30/19 18:43 67 17 98 Nasal Cannula 4.0 36 67 20 96 10/30/19 16:00 98.6 62 22 143/65 (91) 92 10/30/19 16:00 Nasal Cannula 4.0 Nasal Cannula 2.0 10/30/19 16:00 63 10/30/19 12:52 68 22 96 Nasal Cannula 4.0 36 10/30/19 12:50 67 22 100 Nasal Cannula 4.0 36 65 22 96 10/30/19 12:49 96 Nasal Cannula 4.0 36 10/30/19 12:39 141/68 10/30/19 12:00 Nasal Cannula 4.0 Nasal Cannula 2.0 10/30/19 12:00 99.4 66 21 141/68 (92) 96 10/30/19 12:00 69 10/30/19 09:31 94 147/60 10/30/19 09:25 94 147/60 10/30/19 08:00 100.0 94 24 147/60 (89) 94 10/30/19 08:00 85 10/30/19 08:00 Nasal Cannula 2.0 Nasal Cannula 2.0 10/30/19 04:00 Nasal Cannula 2.0 Nasal Cannula 2.0 10/30/19 04:00 77 10/30/19 04:00 99.9 82 24 135/60 (85) 95 10/30/19 00:00 99.4 79 24 148/73 (98) 94 10/30/19 00:00 Nasal Cannula 2.0 Nasal Cannula 2.0 10/30/19 00:00 79 10/30/19 00:00 82 10/29/19 22:01 99.8 10/29/19 21:30 79 154/75 10/29/19 21:30 79 154/75 Intake and Output 10/29/19 10/30/19 19:00 07:00 Intake Total 615 ml 180 ml Balance 615 ml 180 ml Intake Oral 560 ml 120 ml IV Total 55 ml 60 ml # Voids 3 2 # Bowel Movements 2 Laboratory Tests 10/30/19 04:20: White Blood Count 5.7, Red Blood Count 2.61L, Hemoglobin 8.7L, Hematocrit 25.5L , Mean Corpuscular Volume 98, Mean Corpuscular Hemoglobin 33.2H, Mean Corpuscular Hemoglobin Concent 34.0, Red Cell Distribution Width 13.3, Platelet Count 216, Mean Platelet Volume 6.7, Neutrophils (%) (Auto) 63.8, Lymphocytes (% ) (Auto) 15.1L, Monocytes (%) (Auto) 16.9H, Eosinophils (%) (Auto) 1.9, Basophils (%) (Auto) 2.4H 10/30/19 10:10: Sodium Level 143, Potassium Level 4.3, Chloride Level 110H, Carbon Dioxide Level 24, Anion Gap 9, Blood Urea Nitrogen 40H, Creatinine 2.8H, Estimat Glomerular Filtration Rate 22.9, Glucose Level 122H, Calcium Level 8.1L, Phosphorus Level 3.2, Magnesium Level 1.6L, Total Bilirubin 0.4, Aspartate Amino Transf (AST/SGOT) 28, Alanine Aminotransferase (ALT/SGPT) 13, Alkaline Phosphatase 88, Troponin I 0.835H, Total Protein 6.4, Albumin 2.8L, Globulin 3.6 , Albumin/Globulin Ratio 0.8L 10/30/19 11:30: Arterial Blood pH 7.364, Arterial Blood Partial Pressure CO2 42.9, Arterial Blood Partial Pressure O2 62.5L, Arterial Blood HCO3 23.9, Arterial Blood Oxygen Saturation 91.2L, Arterial Blood Base Excess -1.4, Gael Test Positive Height (Feet): 5 Height (Inches): 10.00 Weight (Pounds): 218 General Appearance: lethargic, confused Cardiovascular: normal rate Respiratory/Chest: chest wall non-tender Oni Schilling MD Oct 30, 2019 20:56
[2019-10-30] MEDS: Iron Sucrose 100 MG in NS 55 ML IV SCH (21:00)
[2019-10-30 21:32] LABS: AMMONIA 13 umol/L (11-32)
[2019-10-30] MEDS: Atorvastatin 80mg tab ORAL SCH (22:02)
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
[2019-10-31] VITALS: BP 146/64
[2019-10-31] MEDS: Albuterol/Ipratropium 3ml neb HHN SCH ×4 (01:17→19:09)
[2019-10-31 04:00] VITALS: BP 136/77
--- NOTE | 2019-10-31 04:00 | NUR ---
NURSE NOTES: Contion unchanged. Pt in bed sleeping. Responds approprietly to verbal commands, A/O x 2, denies pain at this time. on room air, saturation at 94%, will place on 2L/NC. no s/s of respiratory distress noted. no distress noted. Rt hand #22 g IV site is patent and intact. Bed in lowest position and locked, siderails up X3, call light within reach. Bed alarm engaged. will continue POC
[2019-10-31 05:36] LABS: BASOPHILS % (AUTO) 0.8 % (0.0-2.0); EOSINOPHILS % (AUTO) 3.8 % (0.0-3.0); HEMATOCRIT 26.6 % (42.0-52.0); HEMOGLOBIN 8.9 G/DL (14.2-18.0); LYMPHOCYTES % (AUTO) 20.3 % (20.0-45.0); MEAN CORPUSCULAR VOLUME 96 FL (80-99); MONOCYTES % (AUTO) 12.1 % (1.0-10.0); NEUTROPHILS % (AUTO) 62.9 % (45.0-75.0); PLATELET COUNT 234 K/UL (150-450); RED BLOOD COUNT 2.78 M/UL (4.70-6.10); RED CELL DISTRIBUTION WIDTH 12.9 % (11.6-14.8); WHITE BLOOD COUNT 6.1 K/UL (4.8-10.8)
[2019-10-31 05:48] LABS: ANION GAP 9 mmol/L (5-15); CARBON DIOXIDE 26 MMOL/L (21-32); CHLORIDE 108 MMOL/L (98-107); POTASSIUM 4.4 MMOL/L (3.5-5.1); SODIUM 143 MMOL/L (136-145)
[2019-10-31 06:45] LABS: ALANINE AMINOTRANSFERASE 17 U/L (12-78); ALBUMIN 2.8 G/DL (3.4-5.0); ALBUMIN/GLOBULIN RATIO 0.8 (1.0-2.7); ALKALINE PHOSPHATASE 92 U/L (46-116); ASPARTATE AMINO TRANSFERASE 29 U/L (15-37); BILIRUBIN,TOTAL 0.4 MG/DL (0.2-1.0); BLOOD UREA NITROGEN 42 mg/dL (7-18); CALCIUM 8.1 MG/DL (8.5-10.1); CREATININE 2.9 MG/DL (0.55-1.30); PHOSPHORUS 3.6 MG/DL (2.5-4.9)
--- NOTE | 2019-10-31 07:17 | NUR ---
HAND-OFF: Report given to Kelly Bowman RN.
--- NOTE | 2019-10-31 07:20 | NUR ---
NURSE NOTES: Report received from Mac Arce RN .Pt awake,alert disoriented on and off,easily redirected ,able to follow simple command,no signs of pain or discomfort,SR on the monitor,Kamara cath draining yellow urine,pt refusing to eat breakfast but only prefers to drink milk,SR up x2 HOB elevated,bed lock in lowest position will continue with plans of care.
--- NOTE | 2019-10-31 07:55 | NUR ---
NURSE NOTES: Dr Cox at bedside,updated by Mac owen pt's status,ordered to transfer pt to med surg.
[2019-10-31 08:00] VITALS: BP 134/63
[2019-10-31] MEDS: Pantoprazole Inj IVP SCH ×2 (09:20→21:26)
[2019-10-31] MEDS: Tamsulosin 0.4mg cap ORAL SCH ×2 (09:21→18:12)
[2019-10-31] MEDS: Furosemide 40mg tab ORAL SCH (09:21)
[2019-10-31] MEDS: Aspirin EC 81mg tab ORAL SCH (09:21)
[2019-10-31] MEDS: Docusate 100mg cap ORAL SCH ×2 (09:21→18:12)
--- NOTE | 2019-10-31 09:29 | General Progress Note ---
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 D/w Dr. Hanson and he concurred. Subjective Date patient seen: Oct 31, 2019 Time patient seen: 09:00 - am Allergies: Coded Allergies: No Known Allergies (Unverified , 10/07/17) Subjective REVIEW OF SYSTEMS: Denies rash, fever, chills, sweating, dizziness, drowsiness, blurred vision, sore throat, or change in weight. No shortness of breath or chest pain. No nausea, vomiting, diarrhea, or blood in the stool or urine. No bowel or bladder incontinence. No dysuria. SUBJECTIVE: Patient has been doing well and is having no pain at this time. No new complaints. Objective Last 24 Hour Vital Signs Date Time Temp Pulse Resp B/P (MAP) Pulse Ox O2 Delivery O2 Flow Rate FiO2 10/31/19 09:23 104 134/63 10/31/19 09:21 104 134/63 10/31/19 09:20 97 Nasal Cannula 4.0 36 10/31/19 08:00 100.0 104 16 134/63 (86) 91 10/31/19 07:57 72 18 100 Nasal Cannula 4.0 36 71 18 97 10/31/19 04:00 80 10/31/19 04:00 100.1 90 16 136/77 (96) 95 10/31/19 03:42 Nasal Cannula 4.0 Nasal Cannula 2.0 10/31/19 01:17 67 16 100 Nasal Cannula 4.0 36 64 17 98 10/31/19 00:00 Nasal Cannula 4.0 Nasal Cannula 2.0 10/31/19 00:00 99.1 74 18 146/64 (91) 95 10/30/19 22:03 72 149/74 10/30/19 22:02 72 149/74 10/30/19 20:00 100.0 83 24 147/60 (89) 94 10/30/19 20:00 Nasal Cannula 4.0 Nasal Cannula 2.0 10/30/19 20:00 72 10/30/19 18:43 96 Nasal Cannula 4.0 36 10/30/19 18:43 67 20 96 Nasal Cannula 4.0 36 10/30/19 18:43 67 17 98 Nasal Cannula 4.0 36 67 20 96 10/30/19 16:00 98.6 62 22 143/65 (91) 92 10/30/19 16:00 Nasal Cannula 4.0 Nasal Cannula 2.0 10/30/19 16:00 63 10/30/19 12:52 68 22 96 Nasal Cannula 4.0 36 10/30/19 12:50 67 22 100 Nasal Cannula 4.0 36 65 22 96 10/30/19 12:49 96 Nasal Cannula 4.0 36 10/30/19 12:39 141/68 10/30/19 12:00 Nasal Cannula 4.0 Nasal Cannula 2.0 10/30/19 12:00 99.4 66 21 141/68 (92) 96 10/30/19 12:00 69 10/30/19 09:31 94 147/60 Intake and Output 10/30/19 10/31/19 19:00 07:00 Intake Total 450 ml 620 ml Output Total 400 ml 800 ml Balance 50 ml -180 ml Intake Oral 450 ml 560 ml IV Total 60 ml Output Urine Total 400 ml 800 ml Laboratory Tests 10/30/19 10:10: Sodium Level 143, Potassium Level 4.3, Chloride Level 110H, Carbon Dioxide Level 24, Anion Gap 9, Blood Urea Nitrogen 40H, Creatinine 2.8H, Estimat Glomerular Filtration Rate 22.9, Glucose Level 122H, Calcium Level 8.1L, Phosphorus Level 3.2, Magnesium Level 1.6L, Total Bilirubin 0.4, Aspartate Amino Transf (AST/SGOT) 28, Alanine Aminotransferase (ALT/SGPT) 13, Alkaline Phosphatase 88, Troponin I 0.835H, Total Protein 6.4, Albumin 2.8L, Globulin 3.6 , Albumin/Globulin Ratio 0.8L 10/30/19 11:30: Arterial Blood pH 7.364, Arterial Blood Partial Pressure CO2 42.9, Arterial Blood Partial Pressure O2 62.5L, Arterial Blood HCO3 23.9, Arterial Blood Oxygen Saturation 91.2L, Arterial Blood Base Excess -1.4, Gael Test Positive 10/30/19 20:45: Ammonia 13, Vitamin B12 Level 695, Methylmalonic Acid [Pending] 10/31/19 03:35: Sodium Level 143, Potassium Level 4.4, Chloride Level 108H, Carbon Dioxide Level 26, Anion Gap 9, Blood Urea Nitrogen 42H, Creatinine 2.9H, Estimat Glomerular Filtration Rate 22.0, Glucose Level 121H, Calcium Level 8.1L, Phosphorus Level 3.6, Magnesium Level 1.9, Total Bilirubin 0.4, Aspartate Amino Transf (AST/SGOT) 29, Alanine Aminotransferase (ALT/SGPT) 17, Alkaline Phosphatase 92, Troponin I 0.825H, Total Protein 6.5, Albumin 2.8L, Globulin 3.7 , Albumin/Globulin Ratio 0.8L, White Blood Count 6.1, Red Blood Count 2.78L, Hemoglobin 8.9L, Hematocrit 26.6L, Mean Corpuscular Volume 96, Mean Corpuscular Hemoglobin 32.0H, Mean Corpuscular Hemoglobin Concent 33.5, Red Cell Distribution Width 12.9, Platelet Count 234, Mean Platelet Volume 6.6, Neutrophils (%) (Auto) 62.9, Lymphocytes (%) (Auto) 20.3, Monocytes (%) (Auto) 12.1H, Eosinophils (%) (Auto) 3.8H, Basophils (%) (Auto) 0.8, Uric Acid 6.7, C- Reactive Protein, Quantitative 5.6H, Pro-B-Type Natriuretic Peptide > [id number] Height (Feet): 5 Height (Inches): 10.00 Weight (Pounds): 218 Objective GENERAL: Alert, awake, and oriented. LUNGS: Decreased breath sounds bilaterally. HEART: S1 and S2 regular. ABDOMEN: Soft, nontender. EXTREMITIES: No cyanosis. No clubbing. NEURO: No changes. Warren Torres Oct 31, 2019 09:29
--- NOTE | 2019-10-31 10:18 | Infectious Diseases Prog Note ---
Assessment/Plan Assessment/Plan IMPRESSION: Fever, Urinary tract infection with Proteus Diabetes mellitus with hyperglycemia, anemia, acute renal failure, chronic kidney disease, BPH, hypertension, hypothyroidism. VRE carrier NSTEMI RECOMMENDATION: We will start patient on ceftriaxone. Subjective ROS Limited/Unobtainable: No Constitutional: Reports: no symptoms, fever, other - feels better Respiratory: Reports: dry cough; Denies: shortness of breath Gastrointestinal/Abdominal: Reports: no symptoms Genitourinary: Reports: no symptoms Allergies: Coded Allergies: No Known Allergies (Unverified , 10/07/17) Objective Vital Signs Last 24 Hour Vital Signs Date Time Temp Pulse Resp B/P (MAP) Pulse Ox O2 Delivery O2 Flow Rate FiO2 10/31/19 09:23 104 134/63 10/31/19 09:21 104 134/63 10/31/19 09:20 97 Nasal Cannula 4.0 36 10/31/19 08:00 100.0 104 16 134/63 (86) 91 10/31/19 07:57 72 18 100 Nasal Cannula 4.0 36 71 18 97 10/31/19 04:00 80 10/31/19 04:00 100.1 90 16 136/77 (96) 95 10/31/19 03:42 Nasal Cannula 4.0 Nasal Cannula 2.0 10/31/19 01:17 67 16 100 Nasal Cannula 4.0 36 64 17 98 10/31/19 00:00 Nasal Cannula 4.0 Nasal Cannula 2.0 10/31/19 00:00 99.1 74 18 146/64 (91) 95 10/30/19 22:03 72 149/74 10/30/19 22:02 72 149/74 10/30/19 20:00 100.0 83 24 147/60 (89) 94 10/30/19 20:00 Nasal Cannula 4.0 Nasal Cannula 2.0 10/30/19 20:00 72 10/30/19 18:43 96 Nasal Cannula 4.0 36 10/30/19 18:43 67 20 96 Nasal Cannula 4.0 36 10/30/19 18:43 67 17 98 Nasal Cannula 4.0 36 67 20 96 10/30/19 16:00 98.6 62 22 143/65 (91) 92 10/30/19 16:00 Nasal Cannula 4.0 Nasal Cannula 2.0 10/30/19 16:00 63 2/13/20 12:52 68 22 96 Nasal Cannula 4.0 36 10/30/19 12:50 67 22 100 Nasal Cannula 4.0 36 65 22 96 10/30/19 12:49 96 Nasal Cannula 4.0 36 10/30/19 12:39 141/68 10/30/19 12:00 Nasal Cannula 4.0 Nasal Cannula 2.0 10/30/19 12:00 99.4 66 21 141/68 (92) 96 10/30/19 12:00 69 Height (Feet): 5 Height (Inches): 10.00 Weight (Pounds): 218 General Appearance: no acute distress HEENT: mucous membranes moist Respiratory/Chest: lungs clear Cardiovascular: tachycardia Abdomen: soft, non tender Extremities: no edema, other - left hand flexion contracture Neurologic/Psychiatric: alert, oriented x 3, responsive Microbiology Date/Time Source Procedure Growth Status 10/29/19 10:30 Urine,Clean Catch Urine Culture - Final Serratia Marcescens Complete Laboratory Tests Test 10/30/19 11:30 10/30/19 20:45 10/31/19 03:35 Arterial Blood pH 7.364 (7.350-7.450) Arterial Blood Partial Pressure CO2 42.9 mmHg (35.0-45.0) Arterial Blood Partial Pressure O2 62.5 mmHg (75.0-100.0) L Arterial Blood HCO3 23.9 mmol/L (22.0-26.0) Arterial Blood Oxygen Saturation 91.2 % (95-100) L Arterial Blood Base Excess -1.4 (-2-2) Gael Test Positive Ammonia 13 umol/L (11-32) Vitamin B12 Level 695 PG/ML (193-986) Methylmalonic Acid Pending White Blood Count 6.1 K/UL (4.8-10.8) Red Blood Count 2.78 M/UL (4.70-6.10) L Hemoglobin 8.9 G/DL (14.2-18.0) L Hematocrit 26.6 % (42.0-52.0) L Mean Corpuscular Volume 96 FL (80-99) Mean Corpuscular Hemoglobin 32.0 PG (27.0-31.0) H Mean Corpuscular Hemoglobin Concent 33.5 G/DL (32.0-36.0) Red Cell Distribution Width 12.9 % (11.6-14.8) Platelet Count 234 K/UL (150-450) Mean Platelet Volume 6.6 FL (6.5-10.1) Neutrophils (%) (Auto) 62.9 % (45.0-75.0) Lymphocytes (%) (Auto) 20.3 % (20.0-45.0) Monocytes (%) (Auto) 12.1 % (1.0-10.0) H Eosinophils (%) (Auto) 3.8 % (0.0-3.0) H Basophils (%) (Auto) 0.8 % (0.0-2.0) Sodium Level 143 MMOL/L (136-145) Potassium Level 4.4 MMOL/L (3.5-5.1) Chloride Level 108 MMOL/L (98-107) H Carbon Dioxide Level 26 MMOL/L (21-32) Anion Gap 9 mmol/L (5-15) Blood Urea Nitrogen 42 mg/dL (7-18) H Creatinine 2.9 MG/DL (0.55-1.30) H Estimat Glomerular Filtration Rate 22.0 mL/min (>60) Glucose Level 121 MG/DL (74-106) H Uric Acid 6.7 MG/DL (2.6-7.2) Calcium Level 8.1 MG/DL (8.5-10.1) L Phosphorus Level 3.6 MG/DL (2.5-4.9) Magnesium Level 1.9 MG/DL (1.8-2.4) Total Bilirubin 0.4 MG/DL (0.2-1.0) Aspartate Amino Transf (AST/SGOT) 29 U/L (15-37) Alanine Aminotransferase (ALT/SGPT) 17 U/L (12-78) Alkaline Phosphatase 92 U/L (46-116) Troponin I 0.825 ng/mL (0.000-0.056) C-Reactive Protein, Quantitative 5.6 mg/dL (0.00-0.90) H Pro-B-Type Natriuretic Peptide > 66944 pg/mL (0-125) H Total Protein 6.5 G/DL (6.4-8.2) Albumin 2.8 G/DL (3.4-5.0) L Globulin 3.7 g/dL Albumin/Globulin Ratio 0.8 (1.0-2.7) L Current Medications Medications (Trade) Dose Ordered Sig/Leon Route PRN Reason Start Time Stop Time Status Last Admin Dose Admin Acetaminophen (Tylenol) 500 mg Q4H PRN ORAL Mild Pain/Temp > 100.5 10/24/19 04:30 11/23/19 04:29 10/29/19 21:31 Albuterol/ Ipratropium (Albuterol/ Ipratropium) 3 ml Q6HRT HHN 10/30/19 13:00 11/04/19 12:59 10/31/19 07:47 Amlodipine Besylate (Norvasc) 5 mg Q12HR ORAL 10/25/19 21:00 11/24/19 20:59 10/31/19 09:23 Aspirin (Ecotrin) 81 mg DAILY ORAL 10/25/19 09:00 11/24/19 08:59 10/31/19 09:21 Atorvastatin Calcium (Lipitor) 80 mg BEDTIME ORAL 10/24/19 21:00 11/23/19 20:59 10/30/19 22:02 Ceftriaxone Sodium 1 gm/ Dextrose 55 ml @ 110 mls/hr Q24H IVPB 10/29/19 16:00 11/05/19 15:59 10/30/19 16:19 Clopidogrel Bisulfate (Plavix) 75 mg DAILY ORAL 10/25/19 09:00 11/24/19 08:59 10/31/19 09:21 Dextrose (Dextrose 50%) 25 ml Q30M PRN IV Hypoglycemia 10/24/19 05:15 11/23/19 05:14 Dextrose (Dextrose 50%) 50 ml Q30M PRN IV Hypoglycemia 10/24/19 05:15 11/23/19 05:14 Docusate Sodium (Colace) 100 mg TWICE A DAY ORAL 10/24/19 18:00 11/23/19 17:59 10/31/19 09:21 Finasteride (Proscar) 5 mg DAILY ORAL 10/25/19 09:00 11/24/19 08:59 10/31/19 09:20 Furosemide (Lasix) 40 mg DAILY ORAL 10/25/19 10:00 11/24/19 09:59 10/31/19 09:21 Levothyroxine Sodium (Synthroid) 150 mcg DAILY@0630 ORAL 10/24/19 06:30 11/23/19 06:29 10/31/19 06:10 Metoprolol Tartrate (Lopressor) 25 mg Q12HR ORAL 10/27/19 11:00 11/23/19 10:59 10/31/19 09:21 Mirtazapine (Remeron) 7.5 mg BEDTIME ORAL 10/28/19 21:00 11/27/19 20:59 10/30/19 21:59 Nitroglycerin (Ntg) 1 patch Q24H TDERMAL 10/24/19 12:30 11/23/19 12:29 10/30/19 12:39 Pantoprazole (Protonix) 40 mg EVERY 12 HOURS IVP 10/29/19 22:15 11/28/19 22:14 10/31/19 09:20 Tamsulosin HCl (Flomax) 0.4 mg BID ORAL 10/26/19 18:00 11/23/19 20:59 10/31/19 09:21 Troy Yeboah MD Oct 31, 2019 10:18
--- NOTE | 2019-10-31 10:32 | NUR ---
RD ASSESSMENT & RECOMMENDATIONS SEE CARE ACTIVITY FOR COMPLETE ASSESSMENT DAILY ESTIMATED NEEDS: Needs based on DM, Cardiac, Obesity, renal/ 81.7kg abw 22-25 kcals/kg 2642-8065 total kcals 0.8-1.2 g protein/kg 66-98 g total protein 20-25 mL/kg 7838-8265 total fluid mLs * ALONDRA COUNT X 48 HRS (10/29-10/31) * -> Incomplete data, only one data available from 10/29 breakfast: pt consumed 100% OJ, 100% scrambled eggs and 100% LF milk. Per EMR, pt refused all meals since 10/28. Per RN, pt takes all of juices and milk. This AM, observed breakfast tray at bedside and RD ssisted pt w/ breakfast. Pt finished 100% of milk and juice, refused the solids. Per pt, "I don't like gourmet food" When offered a avalos on tray, he agreed and finished the avalos. Refused bread and scrambled eggs. Pt previously refused HPN. Today, willing to try. RD had pt sample Glucerna in chocolate flavor per pt preference and pt consumed 100%. Glucerna TID w/ meals now added in chocolate flavor. If pt takes 100% 8oz LF milk (190kcal/10g prot each), orange juice (80kcal each), and Glucerna (220kcal/10g prot each) at each meal, pt will consume 490kcal/20g prot from fluids only at each meal. Pt has been receiving 8oz LF milk in b/w meals as well -> additional 380kcal/20g prot from two 8oz milk cartons. Total daily Kcal/prot intake from fluids -> 1850kcal, 80g prot, which will meet 100% est kcal/prot needs. Pt cont on Remeron, monitor for possible improved appetite. Recommend: (1) Continue 8oz LF milk (190kcal/10g prot per carton) TID w/ meals and BID in b/w meals. (2) Continue Glucerna TID w/ meals (220kcal/10g prot per suyapa)- pt requests chocolate flavor (3) Continue liberalized regular type diet. NUTRITION DIAGNOSIS: * Altered nutrition related lab values R/T diabetes, cardiac hx as evidenced by elev BGs (242 196 -> 121 122 now improved), elev POC glu (200's -> 105-142), elev BNP (>98899) * Swallowing difficutly R/T dysphagia, h/o CVA as evidenced by MANAGER SITE recommends mech soft chopped texture diet-> now advanced to soft easy chew. CURRENT DIET:CARDIAC, mech soft chopped -> REGULAR/ SOFT EASY CHEW (10/29) PO DIET RECOMMENDATIONS: LIBERALIZED REGULAR DIET W/ POOR PO/ texture per MANAGER SITE ADDITIONAL RECOMMENDATIONS: * Monitor for hypoglycemia w/ poor PO, snacks TID in b/w meals added * Liberalized regular diet w/ poor PO -> Low Na/ CCHO MED when PO intake consistently >50% * Pt refused HPN -> now agrees, Glucerna (220kcal/10g prot each) TID added 8oz 2% milk TID w/ meals and BID in b/w added per pt request (190kcal/10g prot each) * Monitor lytes closely w/ Lasix, replete as needed * Skin integrity: add MVI x 1
--- NOTE | 2019-10-31 11:00 | NUR ---
NURSE NOTES: Pt out of the unit per bed accompanied by transporter to CT scan awake alert in no resp distress. 1125,pt back to the unit stable no distress presented.
--- NOTE | 2019-10-31 11:43 | Cardiac Electrophysiology PN ---
Assessment/Plan Assessment/Plan 1. NSTEMI. Troponin is 1.8. Down to 0.86 and no CP. ECG no acute ischemia and Echo Nl EF. Likely due to renal failure. Has history of RI in July 2019 with troponin critical of more than 24. EF of 60%. On Lopressor 25 bid, aspirin, plavix and statin. 2. Questionable atrial fibrillation or DVT, currently remain in sinus rhythm. He used to be on anticoagulation. 3. Hypothyroidism, on Synthroid. 4. History of CVA with left hemiplegia.On Plavix 5. Nose bleed. Stopped. FU DR Brown 6. Fever. DW RN Subjective Subjective In SR. No further nose bleed. Objective Last 24 Hour Vital Signs Date Time Temp Pulse Resp B/P (MAP) Pulse Ox O2 Delivery O2 Flow Rate FiO2 10/31/19 09:23 104 134/63 10/31/19 09:21 104 134/63 10/31/19 09:20 97 Nasal Cannula 4.0 36 10/31/19 08:00 Nasal Cannula 4.0 Nasal Cannula 2.0 10/31/19 08:00 93 10/31/19 08:00 100.0 104 16 134/63 (86) 91 10/31/19 07:57 72 18 100 Nasal Cannula 4.0 36 71 18 97 10/31/19 04:00 80 10/31/19 04:00 100.1 90 16 136/77 (96) 95 10/31/19 03:42 Nasal Cannula 4.0 Nasal Cannula 2.0 10/31/19 01:17 67 16 100 Nasal Cannula 4.0 36 64 17 98 10/31/19 00:00 Nasal Cannula 4.0 Nasal Cannula 2.0 10/31/19 00:00 99.1 74 18 146/64 (91) 95 10/30/19 22:03 72 149/74 10/30/19 22:02 72 149/74 10/30/19 20:00 100.0 83 24 147/60 (89) 94 10/30/19 20:00 Nasal Cannula 4.0 Nasal Cannula 2.0 10/30/19 20:00 72 10/30/19 18:43 96 Nasal Cannula 4.0 36 10/30/19 18:43 67 20 96 Nasal Cannula 4.0 36 10/30/19 18:43 67 17 98 Nasal Cannula 4.0 36 67 20 96 10/30/19 16:00 98.6 62 22 143/65 (91) 92 10/30/19 16:00 Nasal Cannula 4.0 Nasal Cannula 2.0 10/30/19 16:00 63 10/30/19 12:52 68 22 96 Nasal Cannula 4.0 36 10/30/19 12:50 67 22 100 Nasal Cannula 4.0 36 65 22 96 10/30/19 12:49 96 Nasal Cannula 4.0 36 10/30/19 12:39 141/68 10/30/19 12:00 Nasal Cannula 4.0 Nasal Cannula 2.0 10/30/19 12:00 99.4 66 21 141/68 (92) 96 10/30/19 12:00 69 Intake and Output 10/30/19 10/31/19 19:00 07:00 Intake Total 450 ml 620 ml Output Total 400 ml 800 ml Balance 50 ml -180 ml Intake Oral 450 ml 560 ml IV Total 60 ml Output Urine Total 400 ml 800 ml Laboratory Tests Test 10/30/19 20:45 10/31/19 03:35 Ammonia 13 umol/L (11-32) Vitamin B12 Level 695 PG/ML (193-986) Methylmalonic Acid Pending White Blood Count 6.1 K/UL (4.8-10.8) Red Blood Count 2.78 M/UL (4.70-6.10) L Hemoglobin 8.9 G/DL (14.2-18.0) L Hematocrit 26.6 % (42.0-52.0) L Mean Corpuscular Volume 96 FL (80-99) Mean Corpuscular Hemoglobin 32.0 PG (27.0-31.0) H Mean Corpuscular Hemoglobin Concent 33.5 G/DL (32.0-36.0) Red Cell Distribution Width 12.9 % (11.6-14.8) Platelet Count 234 K/UL (150-450) Mean Platelet Volume 6.6 FL (6.5-10.1) Neutrophils (%) (Auto) 62.9 % (45.0-75.0) Lymphocytes (%) (Auto) 20.3 % (20.0-45.0) Monocytes (%) (Auto) 12.1 % (1.0-10.0) H Eosinophils (%) (Auto) 3.8 % (0.0-3.0) H Basophils (%) (Auto) 0.8 % (0.0-2.0) Sodium Level 143 MMOL/L (136-145) Potassium Level 4.4 MMOL/L (3.5-5.1) Chloride Level 108 MMOL/L (98-107) H Carbon Dioxide Level 26 MMOL/L (21-32) Anion Gap 9 mmol/L (5-15) Blood Urea Nitrogen 42 mg/dL (7-18) H Creatinine 2.9 MG/DL (0.55-1.30) H Estimat Glomerular Filtration Rate 22.0 mL/min (>60) Glucose Level 121 MG/DL (74-106) H Uric Acid 6.7 MG/DL (2.6-7.2) Calcium Level 8.1 MG/DL (8.5-10.1) L Phosphorus Level 3.6 MG/DL (2.5-4.9) Magnesium Level 1.9 MG/DL (1.8-2.4) Total Bilirubin 0.4 MG/DL (0.2-1.0) Aspartate Amino Transf (AST/SGOT) 29 U/L (15-37) Alanine Aminotransferase (ALT/SGPT) 17 U/L (12-78) Alkaline Phosphatase 92 U/L (46-116) Troponin I 0.825 ng/mL (0.000-0.056) C-Reactive Protein, Quantitative 5.6 mg/dL (0.00-0.90) H Pro-B-Type Natriuretic Peptide > 24108 pg/mL (0-125) H Total Protein 6.5 G/DL (6.4-8.2) Albumin 2.8 G/DL (3.4-5.0) L Globulin 3.7 g/dL Albumin/Globulin Ratio 0.8 (1.0-2.7) L Microbiology Date/Time Source Procedure Growth Status 10/29/19 10:40 Blood Blood Culture - Preliminary NO GROWTH AFTER 48 HOURS Resulted 10/29/19 10:30 Blood Blood Culture - Preliminary NO GROWTH AFTER 48 HOURS Resulted 10/29/19 10:30 Urine,Clean Catch Urine Culture - Final Serratia Marcescens Complete Objective HEAD AND NECK: No JVD. LUNGS: Clear. CARDIOVASCULAR: Regular S1 and S2 with no gallop. ABDOMEN: Soft. EXTREMITIES: Left hemiplegia with contraction of left arm. Castillo Bazan MD Oct 31, 2019 11:43
[2019-10-31 12:00] VITALS: BP 132/64
--- NOTE | 2019-10-31 12:25 | Nephrology Progress Note ---
Assessment/Plan Problem List: (1) Renal failure (ARF), acute on chronic Assessment: Cr slightly higher (2) Elevated troponin (3) Hypoglycemia (4) Hypothyroid (5) HTN (hypertension) (6) Diabetic nephropathy (7) Anemia in chronic kidney disease (CKD) Assessment Urinary retention Renal failure (ARF), acute on chronic Anemia: s/p GI Bleed on anticoagulation h/o Hypertension Elevated troponin h/o Hypothyroid DM- Hypoglycemia on presentation h/o UTI Plan Reinsert Kamara BP management IV Iron watch HR 2D Echo NOTED Kidney MARCO A NOTED Avoid nephrotoxics antibiotics Per orders / per consultants Subjective ROS Limited/Unobtainable: No Constitutional: Reports: weakness Objective Objective Last 24 Hour Vital Signs Date Time Temp Pulse Resp B/P (MAP) Pulse Ox O2 Delivery O2 Flow Rate FiO2 10/31/19 09:23 104 134/63 10/31/19 09:21 104 134/63 10/31/19 09:20 97 Nasal Cannula 4.0 36 10/31/19 08:00 Nasal Cannula 4.0 Nasal Cannula 2.0 10/31/19 08:00 93 10/31/19 08:00 100.0 104 16 134/63 (86) 91 10/31/19 07:57 72 18 100 Nasal Cannula 4.0 36 71 18 97 10/31/19 04:00 80 10/31/19 04:00 100.1 90 16 136/77 (96) 95 10/31/19 03:42 Nasal Cannula 4.0 Nasal Cannula 2.0 10/31/19 01:17 67 16 100 Nasal Cannula 4.0 36 64 17 98 10/31/19 00:00 Nasal Cannula 4.0 Nasal Cannula 2.0 10/31/19 00:00 99.1 74 18 146/64 (91) 95 10/30/19 22:03 72 149/74 10/30/19 22:02 72 149/74 10/30/19 20:00 100.0 83 24 147/60 (89) 94 10/30/19 20:00 Nasal Cannula 4.0 Nasal Cannula 2.0 10/30/19 20:00 72 10/30/19 18:43 96 Nasal Cannula 4.0 36 10/30/19 18:43 67 20 96 Nasal Cannula 4.0 36 10/30/19 18:43 67 17 98 Nasal Cannula 4.0 36 67 20 96 2/13/20 16:00 98.6 62 22 143/65 (91) 92 10/30/19 16:00 Nasal Cannula 4.0 Nasal Cannula 2.0 10/30/19 16:00 63 10/30/19 12:52 68 22 96 Nasal Cannula 4.0 36 10/30/19 12:50 67 22 100 Nasal Cannula 4.0 36 65 22 96 10/30/19 12:49 96 Nasal Cannula 4.0 36 10/30/19 12:39 141/68 Intake and Output 10/30/19 10/31/19 19:00 07:00 Intake Total 450 ml 620 ml Output Total 400 ml 800 ml Balance 50 ml -180 ml Intake Oral 450 ml 560 ml IV Total 60 ml Output Urine Total 400 ml 800 ml Current Medications Medications (Trade) Dose Ordered Sig/Leon Route PRN Reason Start Time Stop Time Status Last Admin Dose Admin Acetaminophen (Tylenol) 500 mg Q4H PRN ORAL Mild Pain/Temp > 100.5 10/24/19 04:30 11/23/19 04:29 10/29/19 21:31 Albuterol/ Ipratropium (Albuterol/ Ipratropium) 3 ml Q6HRT HHN 10/30/19 13:00 11/04/19 12:59 10/31/19 07:47 Amlodipine Besylate (Norvasc) 5 mg Q12HR ORAL 10/25/19 21:00 11/24/19 20:59 10/31/19 09:23 Aspirin (Ecotrin) 81 mg DAILY ORAL 10/25/19 09:00 11/24/19 08:59 10/31/19 09:21 Atorvastatin Calcium (Lipitor) 80 mg BEDTIME ORAL 10/24/19 21:00 11/23/19 20:59 10/30/19 22:02 Ceftriaxone Sodium 1 gm/ Dextrose 55 ml @ 110 mls/hr Q24H IVPB 10/29/19 16:00 11/05/19 15:59 10/30/19 16:19 Clopidogrel Bisulfate (Plavix) 75 mg DAILY ORAL 10/25/19 09:00 11/24/19 08:59 10/31/19 09:21 Dextrose (Dextrose 50%) 25 ml Q30M PRN IV Hypoglycemia 10/24/19 05:15 11/23/19 05:14 Dextrose (Dextrose 50%) 50 ml Q30M PRN IV Hypoglycemia 10/24/19 05:15 11/23/19 05:14 Docusate Sodium (Colace) 100 mg TWICE A DAY ORAL 10/24/19 18:00 11/23/19 17:59 10/31/19 09:21 Finasteride (Proscar) 5 mg DAILY ORAL 10/25/19 09:00 11/24/19 08:59 10/31/19 09:20 Furosemide (Lasix) 40 mg DAILY ORAL 10/25/19 10:00 11/24/19 09:59 10/31/19 09:21 Levothyroxine Sodium (Synthroid) 150 mcg DAILY@0630 ORAL 10/24/19 06:30 11/23/19 06:29 10/31/19 06:10 Metoprolol Tartrate (Lopressor) 25 mg Q12HR ORAL 10/27/19 11:00 11/23/19 10:59 10/31/19 09:21 Mirtazapine (Remeron) 7.5 mg BEDTIME ORAL 10/28/19 21:00 11/27/19 20:59 10/30/19 21:59 Nitroglycerin (Ntg) 1 patch Q24H TDERMAL 10/24/19 12:30 11/23/19 12:29 10/30/19 12:39 Pantoprazole (Protonix) 40 mg EVERY 12 HOURS IVP 10/29/19 22:15 11/28/19 22:14 10/31/19 09:20 Tamsulosin HCl (Flomax) 0.4 mg BID ORAL 10/26/19 18:00 11/23/19 20:59 10/31/19 09:21 Laboratory Tests 10/30/19 20:45: Ammonia 13, Vitamin B12 Level 695, Methylmalonic Acid [Pending] 10/31/19 03:35: White Blood Count 6.1, Red Blood Count 2.78L, Hemoglobin 8.9L, Hematocrit 26.6L , Mean Corpuscular Volume 96, Mean Corpuscular Hemoglobin 32.0H, Mean Corpuscular Hemoglobin Concent 33.5, Red Cell Distribution Width 12.9, Platelet Count 234, Mean Platelet Volume 6.6, Neutrophils (%) (Auto) 62.9, Lymphocytes (% ) (Auto) 20.3, Monocytes (%) (Auto) 12.1H, Eosinophils (%) (Auto) 3.8H, Basophils (%) (Auto) 0.8, Sodium Level 143, Potassium Level 4.4, Chloride Level 108H, Carbon Dioxide Level 26, Anion Gap 9, Blood Urea Nitrogen 42H, Creatinine 2.9H, Estimat Glomerular Filtration Rate 22.0, Glucose Level 121H, Uric Acid 6.7 , Calcium Level 8.1L, Phosphorus Level 3.6, Magnesium Level 1.9, Total Bilirubin 0.4, Aspartate Amino Transf (AST/SGOT) 29, Alanine Aminotransferase ( ALT/SGPT) 17, Alkaline Phosphatase 92, Troponin I 0.825H, C-Reactive Protein, Quantitative 5.6H, Pro-B-Type Natriuretic Peptide > 32593H, Total Protein 6.5, Albumin 2.8L, Globulin 3.7, Albumin/Globulin Ratio 0.8L Height (Feet): 5 Height (Inches): 10.00 Weight (Pounds): 218 General Appearance: no apparent distress Cardiovascular: tachycardia Respiratory/Chest: decreased breath sounds Abdomen: soft Objective no change Rafa Farr MD Oct 31, 2019 12:25
[2019-10-31] MEDS: Nitroglycerin Patch 0.4mg TDERMAL SCH (12:47)
--- NOTE | 2019-10-31 13:00 | NUR ---
NURSE NOTES: Pt's mother at bedside,updated re pt's status informed re possible transfer to Med Surg,verbalized understanding.
--- NOTE | 2019-10-31 13:03 | Diagnostic Imaging Report ---
Indication: Altered mental status. 64-year-old Technique: Contiguous 5 mm thick transaxial imaging of the head obtained in a Siemens Sensation [address] scanner. Soft tissue and bone windows generated. Automatic Exposure Control was utilized. Total Dose length Product (DLP): 1045.5mGycm CT Dose Index Volume (CTDIvol): 53.4 mGy Comparison: No prior CT head available. CTs paranasal sinus 10/06/2017 Findings: There is a fairly large area of cystic encephalomalacia involving the right MCA territory with involvement of right frontal temporal and the part of the parietal lobe. Findings consistent with previous CVA. There is also a right frontal and right parietal craniotomy noted. This may be related to the encephalomalacia. There is no mass effect or edema appreciated. There is generalized atrophy of the brain which involves the cerebellum and cerebrum. The degree of atrophy in the cerebellum is moderate. Periventricular and other white matter areas of low attenuation are present consistent with chronic small vessel disease. There is expansion of the right sphenoid sinus which is heterogeneously opacified. This could be due to a large fluid retention cyst or mass. This appears similar on the previous occasion CT sinus 10/06/2017. IMPRESSION: No evidence of acute intracranial hemorrhage, mass effect or edema. Old right MCA territory infarct. Status post right frontal and right parietal craniotomies. Generalized mild to moderate atrophy of the brain Evidence of chronic small vessel disease involving white matter. Large expansile mass versus mucus accumulation versus fluid retention cyst within the expanded right sphenoid sinus which may be due to sinusitis. Similar appearance last CT 10/06/2017. The CT scanner at [facility] is accredited by the [employer] and the scans are performed using dose optimization techniques as appropriate to a performed exam including Automatic Exposure control.
--- NOTE | 2019-10-31 13:31 | Pulmonology Progress Note ---
Assessment/Plan Assessment/Plan IMPRESSION: 1. Mild pulmonary vascular congestion. 2. Hypertension. 3. Diabetes mellitus. 4. Previous CVA. 5. Hypoglycemia. 6. Hypoxemia. 7. Epistaxis 8. Anorexia DISCUSSION: Continue low flow O2 Continue diuresis OK to dc back to snf. ABG reviewed, FiO2 increased Janes Cox M.D. Subjective Interval Events: None new; no further epistaxis Constitutional: Reports: no symptoms HEENT: Repors: no symptoms Respiratory: Reports: no symptoms Cardiovascular: Reports: no symptoms Gastrointestinal/Abdominal: Reports: no symptoms Allergies: Coded Allergies: No Known Allergies (Unverified , 10/07/17) Objective Last 24 Hour Vital Signs Date Time Temp Pulse Resp B/P (MAP) Pulse Ox O2 Delivery O2 Flow Rate FiO2 10/31/19 13:08 82 17 98 Nasal Cannula 4.0 36 80 18 91 10/31/19 12:47 132/64 10/31/19 12:00 Nasal Cannula 4.0 Nasal Cannula 2.0 10/31/19 12:00 101.7 80 16 132/64 (86) 91 10/31/19 09:23 104 134/63 10/31/19 09:21 104 134/63 10/31/19 09:20 97 Nasal Cannula 4.0 36 10/31/19 08:00 Nasal Cannula 4.0 Nasal Cannula 2.0 10/31/19 08:00 93 10/31/19 08:00 100.0 104 16 134/63 (86) 91 10/31/19 07:57 72 18 100 Nasal Cannula 4.0 36 71 18 97 10/31/19 04:00 80 10/31/19 04:00 100.1 90 16 136/77 (96) 95 10/31/19 03:42 Nasal Cannula 4.0 Nasal Cannula 2.0 10/31/19 01:17 67 16 100 Nasal Cannula 4.0 36 64 17 98 10/31/19 00:00 Nasal Cannula 4.0 Nasal Cannula 2.0 10/31/19 00:00 99.1 74 18 146/64 (91) 95 10/30/19 22:03 72 149/74 10/30/19 22:02 72 149/74 10/30/19 20:00 100.0 83 24 147/60 (89) 94 10/30/19 20:00 Nasal Cannula 4.0 Nasal Cannula 2.0 10/30/19 20:00 72 10/30/19 18:43 96 Nasal Cannula 4.0 36 10/30/19 18:43 67 20 96 Nasal Cannula 4.0 36 10/30/19 18:43 67 17 98 Nasal Cannula 4.0 36 67 20 96 10/30/19 16:00 98.6 62 22 143/65 (91) 92 10/30/19 16:00 Nasal Cannula 4.0 Nasal Cannula 2.0 10/30/19 16:00 63 Intake and Output 10/30/19 10/31/19 19:00 07:00 Intake Total 450 ml 620 ml Output Total 400 ml 800 ml Balance 50 ml -180 ml Intake Oral 450 ml 560 ml IV Total 60 ml Output Urine Total 400 ml 800 ml General Appearance: no acute distress HEENT: normocephalic Respiratory/Chest: chest wall non-tender, lungs clear Cardiovascular: normal peripheral pulses Abdomen: normal bowel sounds Microbiology Date/Time Source Procedure Growth Status 10/29/19 10:40 Blood Blood Culture - Preliminary NO GROWTH AFTER 48 HOURS Resulted 10/29/19 10:30 Blood Blood Culture - Preliminary NO GROWTH AFTER 48 HOURS Resulted 10/29/19 10:30 Urine,Clean Catch Urine Culture - Final Serratia Marcescens Complete Laboratory Tests 10/30/19 20:45: Ammonia 13, Vitamin B12 Level 695, Methylmalonic Acid [Pending] 10/31/19 03:35: White Blood Count 6.1, Red Blood Count 2.78L, Hemoglobin 8.9L, Hematocrit 26.6L , Mean Corpuscular Volume 96, Mean Corpuscular Hemoglobin 32.0H, Mean Corpuscular Hemoglobin Concent 33.5, Red Cell Distribution Width 12.9, Platelet Count 234, Mean Platelet Volume 6.6, Neutrophils (%) (Auto) 62.9, Lymphocytes (% ) (Auto) 20.3, Monocytes (%) (Auto) 12.1H, Eosinophils (%) (Auto) 3.8H, Basophils (%) (Auto) 0.8, Sodium Level 143, Potassium Level 4.4, Chloride Level 108H, Carbon Dioxide Level 26, Anion Gap 9, Blood Urea Nitrogen 42H, Creatinine 2.9H, Estimat Glomerular Filtration Rate 22.0, Glucose Level 121H, Uric Acid 6.7 , Calcium Level 8.1L, Phosphorus Level 3.6, Magnesium Level 1.9, Total Bilirubin 0.4, Aspartate Amino Transf (AST/SGOT) 29, Alanine Aminotransferase ( ALT/SGPT) 17, Alkaline Phosphatase 92, Troponin I 0.825H, C-Reactive Protein, Quantitative 5.6H, Pro-B-Type Natriuretic Peptide > [id number], Total Protein 6.5, Albumin 2.8L, Globulin 3.7, Albumin/Globulin Ratio 0.8L Current Medications Medications (Trade) Dose Ordered Sig/Leon Route PRN Reason Start Time Stop Time Status Last Admin Dose Admin Acetaminophen (Tylenol) 500 mg Q4H PRN ORAL Mild Pain/Temp > 100.5 10/24/19 04:30 11/23/19 04:29 10/29/19 21:31 Albuterol/ Ipratropium (Albuterol/ Ipratropium) 3 ml Q6HRT HHN 10/30/19 13:00 11/04/19 12:59 10/31/19 13:08 Amlodipine Besylate (Norvasc) 5 mg Q12HR ORAL 10/25/19 21:00 11/24/19 20:59 10/31/19 09:23 Aspirin (Ecotrin) 81 mg DAILY ORAL 10/25/19 09:00 11/24/19 08:59 10/31/19 09:21 Atorvastatin Calcium (Lipitor) 80 mg BEDTIME ORAL 10/24/19 21:00 11/23/19 20:59 10/30/19 22:02 Ceftriaxone Sodium 1 gm/ Dextrose 55 ml @ 110 mls/hr Q24H IVPB 10/29/19 16:00 11/05/19 15:59 10/30/19 16:19 Clopidogrel Bisulfate (Plavix) 75 mg DAILY ORAL 10/25/19 09:00 11/24/19 08:59 10/31/19 09:21 Dextrose (Dextrose 50%) 25 ml Q30M PRN IV Hypoglycemia 10/24/19 05:15 11/23/19 05:14 Dextrose (Dextrose 50%) 50 ml Q30M PRN IV Hypoglycemia 10/24/19 05:15 3/8/20 05:14 Docusate Sodium (Colace) 100 mg TWICE A DAY ORAL 10/24/19 18:00 11/23/19 17:59 10/31/19 09:21 Finasteride (Proscar) 5 mg DAILY ORAL 10/25/19 09:00 11/24/19 08:59 10/31/19 09:20 Furosemide (Lasix) 40 mg DAILY ORAL 10/25/19 10:00 11/24/19 09:59 10/31/19 09:21 Levothyroxine Sodium (Synthroid) 150 mcg DAILY@0630 ORAL 10/24/19 06:30 11/23/19 06:29 10/31/19 06:10 Metoprolol Tartrate (Lopressor) 25 mg Q12HR ORAL 10/27/19 11:00 11/23/19 10:59 10/31/19 09:21 Mirtazapine (Remeron) 7.5 mg BEDTIME ORAL 10/28/19 21:00 11/27/19 20:59 10/30/19 21:59 Nitroglycerin (Ntg) 1 patch Q24H TDERMAL 10/24/19 12:30 11/23/19 12:29 10/31/19 12:47 Pantoprazole (Protonix) 40 mg EVERY 12 HOURS IVP 10/29/19 22:15 11/28/19 22:14 10/31/19 09:20 Tamsulosin HCl (Flomax) 0.4 mg BID ORAL 10/26/19 18:00 11/23/19 20:59 10/31/19 09:21 Janes Cox MD Oct 31, 2019 13:31
[2019-10-31] MEDS ORDERED: Tubing IV Secondary IV ONE (13:36)
[2019-10-31] MEDS ORDERED: NS 275ml ONE (13:36)
[2019-10-31] MEDS ORDERED: D5 1/2NS 1000ml IV ONE (13:36)
--- NOTE | 2019-10-31 15:32 | NUR ---
SWALLOW STATUS/WEEKLY SUMMARY: S: PATIENT SEEN AT BEDSIDE. HE WAS ALERT/AWAKE, VERBAL, COOPERATIVE O: DYSPHAGIA FOLLOWUP/CURRENT STATUS A: DESPITE MULTIPLE UPGRADES IN DIET TEXTURE, MULTIPLE RD CONSULTS RE: PATIENT FOOD PREFERENCES, ENCOURAGEMENT FROM STAFF, PATIENTS P.O. INTAKE REMAINS INSUFFICIENT TO SUPPORT NUTRITION/HYDRATION NEEDS HE HAS VERY NARROW SELF/RESTRICTED FOOD PREFERENCES WHICH PREVENTS HIM FROM EATING MORE THAN AN AVERAGE OF 20% OF HIS MEALTIME TRAYS. GOALS MET RELATIVE TO STAFF TRAINING IN SUPPORT OF PATIENTS ORAL CARE WITH RETURN DEMONSTRATION PROVIDED. P: CONTINUE PER PLAN OF CARE.
[2019-10-31 16:00] VITALS: BP 140/87
--- NOTE | 2019-10-31 16:17 | NUR ---
[employer] SI: HYPOGLYCEMIA,SEPSIS T. 101.7 HR 104 RR 16 B/P 132/64 2L NC BUN 42 CR 2.9 TROP 0.825 BNP>[id number] IS: ROCEPHIN IV PROTONIX IV HEPARIN SUBC MED/SURG STATUS
[2019-10-31] MEDS: cefTRIAXone 1 GM in D5W 55 ML IVPB SCH (16:24)
--- NOTE | 2019-10-31 17:56 | General Progress Note ---
Assessment/Plan Assessment/Plan: Assessment - Anorexia, appears to be related to food choices - Azotemia - anemia - Functional decline - Elevated Troponin - hypothyroid Recommendations - Remeron trial - calorie count - liquid shakes / supplements - will ask family to bring home foods - check OB --> negative Subjective Allergies: Coded Allergies: No Known Allergies (Unverified , 10/07/17) Subjective Feels OK no abd complaints dislikes hospital food Objective Last 24 Hour Vital Signs Date Time Temp Pulse Resp B/P (MAP) Pulse Ox O2 Delivery O2 Flow Rate FiO2 10/31/19 16:00 Nasal Cannula 4.0 Nasal Cannula 2.0 10/31/19 13:08 82 17 98 Nasal Cannula 4.0 36 80 18 91 10/31/19 12:47 132/64 10/31/19 12:00 Nasal Cannula 4.0 Nasal Cannula 2.0 10/31/19 12:00 101.7 80 16 132/64 (86) 91 10/31/19 12:00 80 10/31/19 09:23 104 134/63 10/31/19 09:21 104 134/63 10/31/19 09:20 97 Nasal Cannula 4.0 36 10/31/19 08:00 Nasal Cannula 4.0 Nasal Cannula 2.0 10/31/19 08:00 93 10/31/19 08:00 100.0 104 16 134/63 (86) 91 10/31/19 07:57 72 18 100 Nasal Cannula 4.0 36 71 18 97 10/31/19 04:00 80 10/31/19 04:00 100.1 90 16 136/77 (96) 95 10/31/19 03:42 Nasal Cannula 4.0 Nasal Cannula 2.0 10/31/19 01:17 67 16 100 Nasal Cannula 4.0 36 64 17 98 10/31/19 00:00 Nasal Cannula 4.0 Nasal Cannula 2.0 10/31/19 00:00 99.1 74 18 146/64 (91) 95 10/30/19 22:03 72 149/74 10/30/19 22:02 72 149/74 10/30/19 20:00 100.0 83 24 147/60 (89) 94 10/30/19 20:00 Nasal Cannula 4.0 Nasal Cannula 2.0 10/30/19 20:00 72 10/30/19 18:43 96 Nasal Cannula 4.0 36 10/30/19 18:43 67 20 96 Nasal Cannula 4.0 36 10/30/19 18:43 67 17 98 Nasal Cannula 4.0 36 20 96 Intake and Output 10/30/19 10/31/19 19:00 07:00 Intake Total 450 ml 620 ml Output Total 400 ml 800 ml Balance 50 ml -180 ml Intake Oral 450 ml 560 ml IV Total 60 ml Output Urine Total 400 ml 800 ml Laboratory Tests 10/30/19 20:45: Ammonia 13, Vitamin B12 Level 695, Methylmalonic Acid [Pending] 10/31/19 03:35: White Blood Count 6.1, Red Blood Count 2.78L, Hemoglobin 8.9L, Hematocrit 26.6L , Mean Corpuscular Volume 96, Mean Corpuscular Hemoglobin 32.0H, Mean Corpuscular Hemoglobin Concent 33.5, Red Cell Distribution Width 12.9, Platelet Count 234, Mean Platelet Volume 6.6, Neutrophils (%) (Auto) 62.9, Lymphocytes (% ) (Auto) 20.3, Monocytes (%) (Auto) 12.1H, Eosinophils (%) (Auto) 3.8H, Basophils (%) (Auto) 0.8, Sodium Level 143, Potassium Level 4.4, Chloride Level 108H, Carbon Dioxide Level 26, Anion Gap 9, Blood Urea Nitrogen 42H, Creatinine 2.9H, Estimat Glomerular Filtration Rate 22.0, Glucose Level 121H, Uric Acid 6.7 , Calcium Level 8.1L, Phosphorus Level 3.6, Magnesium Level 1.9, Total Bilirubin 0.4, Aspartate Amino Transf (AST/SGOT) 29, Alanine Aminotransferase ( ALT/SGPT) 17, Alkaline Phosphatase 92, Troponin I 0.825H, C-Reactive Protein, Quantitative 5.6H, Pro-B-Type Natriuretic Peptide > 94971F, Total Protein 6.5, Albumin 2.8L, Globulin 3.7, Albumin/Globulin Ratio 0.8L Height (Feet): 5 Height (Inches): 10.00 Weight (Pounds): 218 Objective WDWN NCAT supple CTA RR abd soft no edema Naheed Welch MD Oct 31, 2019 17:56
--- NOTE | 2019-10-31 19:30 | NUR ---
NURSE NOTES: Report received from MK BLAKE, using SBAR. Patient is asleep in bed with no acute distress. SR on monitor. vs stable. Afebrile. Denies any pain at this time.call light in reach, bed alarm on. will continue plan of care.
--- NOTE | 2019-10-31 19:35 | NUR ---
HAND-OFF: Report given to Chelsea Corley RN,pt awake in bed no distress presented.
[2019-10-31 20:00] VITALS: BP 100/61
--- NOTE | 2019-10-31 20:42 | Hematology/Onc Progress Note ---
Assessment/Plan Assessment/Plan Assessment and Recs: # Anemia due to underlying GI bleed -- patient presents with hematemesis before and now with barb --> as per GI eval, may need endoscopy --> has been started on ppi --> cea has been ordered --> Hgb goal >7. Transfuse prn. --> Will sign consent if necessary --> Epogen not started. IRON IV x 5 days completed --> Consider octreotide gtt as per gi eval --> Medications have been reviewed --> Hgb 8.8 -->8.6-->8.7-->8.9 # Coagulation defect/Bleeding, multifactorial usually related to poor PO intake versus medications, in this case related to coumadin --> administer Vitamin K if patient is bleeding or FFP if the INR is >10 --> hold off on ffp unless active procedure/bleeding, first begin with vit K 10 --> mixing study as needed --> HAVE STOPPED COUMADIN --> per cards, hold off at this time, is aware of afib hx # Anemia due to folic acid deficiency/iron deficiency as well --> prior folic acid<5 --> recheck levels # Elevated troponin, rising, ?nstemi --> aware --> anticoag as per his recs # Renal failure (ARF), acute on chronic --> per renal Dr. Farr # UTI --> abx as needed --> abx: ceftriaxone # Dvt ppx on scds now The timing of this note does not necessarily reflect the time of the patient was seen. Greatly appreciate consultation. Subjective Allergies: Coded Allergies: No Known Allergies (Unverified , 10/07/17) Subjective 10/27: awake, venous duplex negative, iv iron, nose bleed 10/28: is awake, alert on 2l flow, no bleeding, coags noted 10/29: no major changes, seen by pulm, coag midly elevated, hgb in the 8s 10/30: no events, no bleeding or chills, no major changes, hgb 8.7 10/31: to be transferred to med surg, ct head negative, h/h stable, on ceftriaxone Objective Objective Current Medications Medications (Trade) Dose Ordered Sig/Leon Route PRN Reason Start Time Stop Time Status Last Admin Dose Admin Acetaminophen (Tylenol) 500 mg Q4H PRN ORAL Mild Pain/Temp > 100.5 10/24/19 04:30 11/23/19 04:29 10/29/19 21:31 Albuterol/ Ipratropium (Albuterol/ Ipratropium) 3 ml Q6HRT HHN 10/30/19 13:00 11/04/19 12:59 10/31/19 19:09 Amlodipine Besylate (Norvasc) 5 mg Q12HR ORAL 10/25/19 21:00 11/24/19 20:59 10/31/19 09:23 Aspirin (Ecotrin) 81 mg DAILY ORAL 10/25/19 09:00 11/24/19 08:59 10/31/19 09:21 Atorvastatin Calcium (Lipitor) 80 mg BEDTIME ORAL 10/24/19 21:00 11/23/19 20:59 10/30/19 22:02 Ceftriaxone Sodium 1 gm/ Dextrose 55 ml @ 110 mls/hr Q24H IVPB 10/29/19 16:00 11/05/19 15:59 10/31/19 16:24 Clopidogrel Bisulfate (Plavix) 75 mg DAILY ORAL 10/25/19 09:00 11/24/19 08:59 10/31/19 09:21 Dextrose (Dextrose 50%) 25 ml Q30M PRN IV Hypoglycemia 10/24/19 05:15 11/23/19 05:14 Dextrose (Dextrose 50%) 50 ml Q30M PRN IV Hypoglycemia 10/24/19 05:15 11/23/19 05:14 Docusate Sodium (Colace) 100 mg TWICE A DAY ORAL 10/24/19 18:00 11/23/19 17:59 10/31/19 18:12 Finasteride (Proscar) 5 mg DAILY ORAL 10/25/19 09:00 11/24/19 08:59 10/31/19 09:20 Furosemide (Lasix) 40 mg DAILY ORAL 10/25/19 10:00 11/24/19 09:59 10/31/19 09:21 Levothyroxine Sodium (Synthroid) 150 mcg DAILY@0630 ORAL 10/24/19 06:30 11/23/19 06:29 10/31/19 06:10 Metoprolol Tartrate (Lopressor) 25 mg Q12HR ORAL 10/27/19 11:00 11/23/19 10:59 10/31/19 09:21 Mirtazapine (Remeron) 7.5 mg BEDTIME ORAL 10/28/19 21:00 11/27/19 20:59 10/30/19 21:59 Nitroglycerin (Ntg) 1 patch Q24H TDERMAL 10/24/19 12:30 11/23/19 12:29 10/31/19 12:47 Pantoprazole (Protonix) 40 mg EVERY 12 HOURS IVP 10/29/19 22:15 11/28/19 22:14 10/31/19 09:20 Tamsulosin HCl (Flomax) 0.4 mg BID ORAL 10/26/19 18:00 11/23/19 20:59 10/31/19 18:12 Last 24 Hour Vital Signs Date Time Temp Pulse Resp B/P (MAP) Pulse Ox O2 Delivery O2 Flow Rate FiO2 10/31/19 19:10 73 17 98 Nasal Cannula 4.0 36 71 18 96 10/31/19 19:09 96 Nasal Cannula 4.0 36 10/31/19 16:00 71 10/31/19 16:00 97.2 88 20 140/87 (104) 94 10/31/19 16:00 Nasal Cannula 4.0 Nasal Cannula 2.0 10/31/19 13:08 82 17 98 Nasal Cannula 4.0 36 80 18 91 10/31/19 12:47 132/64 10/31/19 12:00 Nasal Cannula 4.0 Nasal Cannula 2.0 10/31/19 12:00 101.7 80 16 132/64 (86) 91 10/31/19 12:00 80 10/31/19 09:23 104 134/63 10/31/19 09:21 104 134/63 10/31/19 09:20 97 Nasal Cannula 4.0 36 10/31/19 08:00 Nasal Cannula 4.0 Nasal Cannula 2.0 10/31/19 08:00 93 10/31/19 08:00 100.0 104 16 134/63 (86) 91 10/31/19 07:57 72 18 100 Nasal Cannula 4.0 36 71 18 97 10/31/19 04:00 80 10/31/19 04:00 100.1 90 16 136/77 (96) 95 10/31/19 03:42 Nasal Cannula 4.0 Nasal Cannula 2.0 10/31/19 01:17 67 16 100 Nasal Cannula 4.0 36 64 17 98 10/31/19 00:00 Nasal Cannula 4.0 Nasal Cannula 2.0 10/31/19 00:00 99.1 74 18 146/64 (91) 95 10/30/19 22:03 72 149/74 10/30/19 22:02 72 149/74 10/30/19 20:00 100.0 83 24 147/60 (89) 94 10/30/19 20:00 Nasal Cannula 4.0 Nasal Cannula 2.0 10/30/19 20:00 72 10/30/19 18:43 96 Nasal Cannula 4.0 36 10/30/19 18:43 67 20 96 Nasal Cannula 4.0 36 10/30/19 18:43 67 17 98 Nasal Cannula 4.0 36 67 20 96 10/30/19 16:00 98.6 62 22 143/65 (91) 92 10/30/19 16:00 Nasal Cannula 4.0 Nasal Cannula 2.0 10/30/19 16:00 63 10/30/19 12:52 68 22 96 Nasal Cannula 4.0 36 10/30/19 12:50 67 22 100 Nasal Cannula 4.0 36 65 22 96 10/30/19 12:49 96 Nasal Cannula 4.0 36 10/30/19 12:39 141/68 10/30/19 12:00 Nasal Cannula 4.0 Nasal Cannula 2.0 10/30/19 12:00 99.4 66 21 141/68 (92) 96 10/30/19 12:00 69 10/30/19 09:31 94 147/60 10/30/19 09:25 94 147/60 10/30/19 08:00 100.0 94 24 147/60 (89) 94 10/30/19 08:00 85 10/30/19 08:00 Nasal Cannula 2.0 Nasal Cannula 2.0 10/30/19 04:00 Nasal Cannula 2.0 Nasal Cannula 2.0 10/30/19 04:00 77 10/30/19 04:00 99.9 82 24 135/60 (85) 95 10/30/19 00:00 99.4 79 24 148/73 (98) 94 10/30/19 00:00 Nasal Cannula 2.0 Nasal Cannula 2.0 10/30/19 00:00 79 10/30/19 00:00 82 10/29/19 22:01 99.8 10/29/19 21:30 79 154/75 10/29/19 21:30 79 154/75 Intake and Output 10/30/19 10/31/19 19:00 07:00 Intake Total 450 ml 620 ml Output Total 400 ml 800 ml Balance 50 ml -180 ml Intake Oral 450 ml 560 ml IV Total 60 ml Output Urine Total 400 ml 800 ml Labs Test 10/29/19 01:00 10/29/19 10:30 10/30/19 04:20 10/30/19 10:10 Stool Occult Blood Negative (NEGATIVE) Urine Color Pale yellow Urine Appearance Slightly cloudy Urine pH 5 (4.5-8.0) Urine Specific Gaines 1.010 (1.005-1.035) Urine Protein 3+ (NEGATIVE) Urine Glucose (UA) Negative (NEGATIVE) Urine Ketones Negative (NEGATIVE) Urine Blood 3+ (NEGATIVE) Urine Nitrite Negative (NEGATIVE) Urine Bilirubin Negative (NEGATIVE) Urine Urobilinogen Normal MG/DL (0.0-1.0) Urine Leukocyte Esterase 3+ (NEGATIVE) Urine RBC 2-4 /HPF (0 - 0) Urine WBC 40-60 /HPF (0 - 0) Urine Squamous Epithelial Cells Occasional /LPF Urine Bacteria Moderate /HPF (NONE) White Blood Count 5.7 K/UL (4.8-10.8) Red Blood Count 2.61 M/UL (4.70-6.10) Hemoglobin 8.7 G/DL (14.2-18.0) Hematocrit 25.5 % (42.0-52.0) Mean Corpuscular Volume 98 FL (80-99) Mean Corpuscular Hemoglobin 33.2 PG (27.0-31.0) Mean Corpuscular Hemoglobin Concent 34.0 G/DL (32.0-36.0) Red Cell Distribution Width 13.3 % (11.6-14.8) Platelet Count 216 K/UL (150-450) Mean Platelet Volume 6.7 FL (6.5-10.1) Neutrophils (%) (Auto) 63.8 % (45.0-75.0) Lymphocytes (%) (Auto) 15.1 % (20.0-45.0) Monocytes (%) (Auto) 16.9 % (1.0-10.0) Eosinophils (%) (Auto) 1.9 % (0.0-3.0) Basophils (%) (Auto) 2.4 % (0.0-2.0) Sodium Level 143 MMOL/L (136-145) Potassium Level 4.3 MMOL/L (3.5-5.1) Chloride Level 110 MMOL/L (98-107) Carbon Dioxide Level 24 MMOL/L (21-32) Anion Gap 9 mmol/L (5-15) Blood Urea Nitrogen 40 mg/dL (7-18) Creatinine 2.8 MG/DL (0.55-1.30) Estimat Glomerular Filtration Rate 22.9 mL/min (>60) Glucose Level 122 MG/DL (74-106) Calcium Level 8.1 MG/DL (8.5-10.1) Phosphorus Level 3.2 MG/DL (2.5-4.9) Magnesium Level 1.6 MG/DL (1.8-2.4) Total Bilirubin 0.4 MG/DL (0.2-1.0) Aspartate Amino Transf (AST/SGOT) 28 U/L (15-37) Alanine Aminotransferase (ALT/SGPT) 13 U/L (12-78) Alkaline Phosphatase 88 U/L (46-116) Troponin I 0.835 ng/mL (0.000-0.056) Total Protein 6.4 G/DL (6.4-8.2) Albumin 2.8 G/DL (3.4-5.0) Globulin 3.6 g/dL Albumin/Globulin Ratio 0.8 (1.0-2.7) Test 10/30/19 11:30 10/30/19 20:45 10/31/19 03:35 Arterial Blood pH 7.364 (7.350-7.450) Arterial Blood Partial Pressure CO2 42.9 mmHg (35.0-45.0) Arterial Blood Partial Pressure O2 62.5 mmHg (75.0-100.0) Arterial Blood HCO3 23.9 mmol/L (22.0-26.0) Arterial Blood Oxygen Saturation 91.2 % (95-100) Arterial Blood Base Excess -1.4 (-2-2) Gael Test Positive Ammonia 13 umol/L (11-32) Vitamin B12 Level 695 PG/ML (193-986) White Blood Count 6.1 K/UL (4.8-10.8) Red Blood Count 2.78 M/UL (4.70-6.10) Hemoglobin 8.9 G/DL (14.2-18.0) Hematocrit 26.6 % (42.0-52.0) Mean Corpuscular Volume 96 FL (80-99) Mean Corpuscular Hemoglobin 32.0 PG (27.0-31.0) Mean Corpuscular Hemoglobin Concent 33.5 G/DL (32.0-36.0) Red Cell Distribution Width 12.9 % (11.6-14.8) Platelet Count 234 K/UL (150-450) Mean Platelet Volume 6.6 FL (6.5-10.1) Neutrophils (%) (Auto) 62.9 % (45.0-75.0) Lymphocytes (%) (Auto) 20.3 % (20.0-45.0) Monocytes (%) (Auto) 12.1 % (1.0-10.0) Eosinophils (%) (Auto) 3.8 % (0.0-3.0) Basophils (%) (Auto) 0.8 % (0.0-2.0) Sodium Level 143 MMOL/L (136-145) Potassium Level 4.4 MMOL/L (3.5-5.1) Chloride Level 108 MMOL/L (98-107) Carbon Dioxide Level 26 MMOL/L (21-32) Anion Gap 9 mmol/L (5-15) Blood Urea Nitrogen 42 mg/dL (7-18) Creatinine 2.9 MG/DL (0.55-1.30) Estimat Glomerular Filtration Rate 22.0 mL/min (>60) Glucose Level 121 MG/DL (74-106) Uric Acid 6.7 MG/DL (2.6-7.2) Calcium Level 8.1 MG/DL (8.5-10.1) Phosphorus Level 3.6 MG/DL (2.5-4.9) Magnesium Level 1.9 MG/DL (1.8-2.4) Total Bilirubin 0.4 MG/DL (0.2-1.0) Aspartate Amino Transf (AST/SGOT) 29 U/L (15-37) Alanine Aminotransferase (ALT/SGPT) 17 U/L (12-78) Alkaline Phosphatase 92 U/L (46-116) Troponin I 0.825 ng/mL (0.000-0.056) C-Reactive Protein, Quantitative 5.6 mg/dL (0.00-0.90) Pro-B-Type Natriuretic Peptide > 59986 pg/mL (0-125) Total Protein 6.5 G/DL (6.4-8.2) Albumin 2.8 G/DL (3.4-5.0) Globulin 3.7 g/dL Albumin/Globulin Ratio 0.8 (1.0-2.7) Height (Feet): 5 Height (Inches): 10.00 Weight (Pounds): 218 Objective PE Vitals: reviewed General Appearance: NAD + chronically ill HEENT: normocephalic, atraumatic ++ biconjunctival hemorrhage-> improved Neck: non-tender, normal alignment Respiratory/Chest: nromal breath sounds bilaterally Cardiovascular/Chest: normal peripheral pulses, normal rate Abdomen: normal bowel sounds, soft, nontender Extremities: normal range of motion, Right arm skin tear, left sided weaknness NEURO: ++ left sided weakness Nate Whyte MD Oct 31, 2019 20:42
[2019-10-31] MEDS: Atorvastatin 80mg tab ORAL SCH (21:26)
--- NOTE | 2019-10-31 23:00 | Electroencephalogram ---
DATE OF PROCEDURE: 10/30/2019 REQUESTING PHYSICIANS: Aleks Dick M.D. & Oni Schilling M.D. READING PHYSICIAN: Elias Grullon M.D. PROCEDURE PERFORMED: Electroencephalogram. HISTORY: This EEG was performed on a 64-year-old gentleman with a history of an alteration in his mental state. The purpose of this EEG was to evaluate the patient for the degree and type of cerebral dysfunction. TECHNICAL NOTE: This EEG was performed on a [employer] with electrodes placed on the scalp according to the International 10-20 system. [id number] and [id number] montages were used. The EEG was technically satisfactory and was performed in the awake, drowsy, and sleep states. OBSERVATIONS: In the best awake state, the background activity consisted of 7-7.5 Hz theta activity. Drowsiness was characterized by irregular 5-6 Hz theta activity. Stage II sleep was characterized by further slowing of the background in the delta and theta range, the presence of vertex waves, and 12 Hz sleep spindles. No focal abnormalities or epileptiform discharges were seen. IMPRESSION: This is an abnormal EEG characterized by slowing of the background in the 7- 7.5 Hz theta range in the best awake state. COMMENT: This study is consistent with an encephalopathy of a [id number] degree. Clinical correlation is recommended. Elias Grullon M.D., M.S.P.H. Clinical Neurophysiologist DR: BOGDAN JOB#: [id number] [facility]PITALNikhil
[2019-11-01] VITALS (7 sets, daily range): BP systolic 103–147; BP diastolic 59–78
[2019-11-01] MEDS: Albuterol/Ipratropium 3ml neb HHN SCH ×4 (00:58→20:28)
--- NOTE | 2019-11-01 02:15 | NUR ---
NURSE NOTES: Patient was transferred to 4E Room 409-1.Belongings carried with patient and checked with RN.
--- NOTE | 2019-11-01 02:20 | NUR ---
NURSE NOTES: Received patient from [facility], report is given by LOU Tran patient is asleep, no distress noted, IV site is clean dry and intact, patient has Kamara catheter 16 fr draining well. Oriented to the room, call light is within reach, bed is lowered, locked, alarm is on, will continue to monitor for comfort and safety.
[2019-11-01] MEDS ORDERED: Acetaminophen 500mg (ES) tab ORAL PRN (06:15)
--- NOTE | 2019-11-01 07:14 | NUR ---
HAND-OFF: Report given to Sylvain BLAKE.
--- NOTE | 2019-11-01 07:33 | NUR ---
NURSE NOTES: Received pt in bed, sleeping. No s/s of pain/distress. IV on R hand 22g noted. FC noted, draining by gravity. Side rail x 2. Bed in the lowest, locked, and alarm on. Call light within reach. Will continue to monitor.
[2019-11-01] MEDS ORDERED: Pantoprazole Inj IVP SCH (09:00)
[2019-11-01] MEDS: Aspirin EC 81mg tab ORAL SCH (09:19)
[2019-11-01] MEDS: Tamsulosin 0.4mg cap ORAL SCH ×2 (09:20→17:17)
[2019-11-01] MEDS: Docusate 100mg cap ORAL SCH ×2 (09:20→17:17)
[2019-11-01] MEDS: Furosemide 40mg tab ORAL SCH (09:21)
[2019-11-01 10:06] LABS: BASOPHILS % (AUTO) 0.7 % (0.0-2.0); EOSINOPHILS % (AUTO) 4.1 % (0.0-3.0); HEMATOCRIT 26.5 % (42.0-52.0); HEMOGLOBIN 8.9 G/DL (14.2-18.0); LYMPHOCYTES % (AUTO) 24.1 % (20.0-45.0); MEAN CORPUSCULAR VOLUME 96 FL (80-99); MONOCYTES % (AUTO) 10.4 % (1.0-10.0); NEUTROPHILS % (AUTO) 60.7 % (45.0-75.0); PLATELET COUNT 263 K/UL (150-450); RED BLOOD COUNT 2.77 M/UL (4.70-6.10); RED CELL DISTRIBUTION WIDTH 12.9 % (11.6-14.8); WHITE BLOOD COUNT 7.4 K/UL (4.8-10.8)
--- NOTE | 2019-11-01 10:32 | Cardiac Electrophysiology PN ---
Assessment/Plan Assessment/Plan 1. NSTEMI. Troponin 1.8. Down to 0.86 and no CP. ECG no acute ischemia and Echo Nl EF. Likely due to renal failure. Has history of [place] in July 2019 with troponin of more than 24. EF of 60 %. On Lopressor 25 bid, aspirin, Plavix and Lipitor 80 2. Questionable atrial fibrillation or DVT, currently remain in sinus rhythm. He used to be on anticoagulation. 3. HTN On Lopressor 25 bid, Norvasc 5 bid and Lasix 40 daily 4. History of CVA with left hemiplegia.On Plavix 5. Nose bleed. Stopped. FU Dr. Brown 6. Fever. 7. Hypothyroidism, on Synthroid. LAMIN RN Subjective Subjective In SR.Transferred to [facility] Objective Last 24 Hour Vital Signs Date Time Temp Pulse Resp B/P (MAP) Pulse Ox O2 Delivery O2 Flow Rate FiO2 11/01/19 09:00 Nasal Cannula 4.0 Nasal Cannula 4.0 11/01/19 08:00 97.8 65 20 121/69 (86) 92 11/01/19 05:55 97.8 98 18 147/78 (101) 98 11/01/19 05:55 Nasal Cannula 4.0 Nasal Cannula 4.0 11/01/19 05:54 Nasal Cannula 4.0 Nasal Cannula 4.0 11/01/19 04:00 Nasal Cannula 4.0 Nasal Cannula 4.0 11/01/19 04:00 98.7 87 18 147/74 (98) 98 11/01/19 00:58 75 21 98 Nasal Cannula 4.0 36 73 21 97 11/01/19 00:00 Nasal Cannula 4.0 Nasal Cannula 4.0 11/01/19 00:00 98.1 74 22 103/59 (74) 96 11/01/19 00:00 77 10/31/19 21:26 83 100/61 10/31/19 21:00 83 100/61 10/31/19 20:00 99.7 83 22 100/61 (74) 95 10/31/19 20:00 Nasal Cannula 4.0 Nasal Cannula 4.0 10/31/19 20:00 73 10/31/19 19:10 73 17 98 Nasal Cannula 4.0 36 71 18 96 10/31/19 19:09 96 Nasal Cannula 4.0 36 10/31/19 16:00 71 10/31/19 16:00 97.2 88 20 140/87 (104) 94 10/31/19 16:00 Nasal Cannula 4.0 Nasal Cannula 2.0 10/31/19 13:08 82 17 98 Nasal Cannula 4.0 36 80 18 91 10/31/19 12:47 132/64 10/31/19 12:00 Nasal Cannula 4.0 Nasal Cannula 2.0 10/31/19 12:00 101.7 80 16 132/64 (86) 91 10/31/19 12:00 80 Intake and Output 10/31/19 11/01/19 19:00 07:00 Intake Total 1000 ml Output Total 600 ml 600 ml Balance 400 ml -600 ml Intake Oral 1000 ml Output Urine Total 600 ml 600 ml Laboratory Tests Test 11/01/19 09:35 White Blood Count 7.4 K/UL (4.8-10.8) Red Blood Count 2.77 M/UL (4.70-6.10) L Hemoglobin 8.9 G/DL (14.2-18.0) L Hematocrit 26.5 % (42.0-52.0) L Mean Corpuscular Volume 96 FL (80-99) Mean Corpuscular Hemoglobin 32.1 PG (27.0-31.0) H Mean Corpuscular Hemoglobin Concent 33.5 G/DL (32.0-36.0) Red Cell Distribution Width 12.9 % (11.6-14.8) Platelet Count 263 K/UL (150-450) Mean Platelet Volume 6.4 FL (6.5-10.1) L Neutrophils (%) (Auto) 60.7 % (45.0-75.0) Lymphocytes (%) (Auto) 24.1 % (20.0-45.0) Monocytes (%) (Auto) 10.4 % (1.0-10.0) H Eosinophils (%) (Auto) 4.1 % (0.0-3.0) H Basophils (%) (Auto) 0.7 % (0.0-2.0) Microbiology Date/Time Source Procedure Growth Status 10/29/19 10:40 Blood Blood Culture - Preliminary NO GROWTH AFTER 48 HOURS Resulted 10/29/19 10:30 Blood Blood Culture - Preliminary NO GROWTH AFTER 48 HOURS Resulted 10/29/19 10:30 Urine,Clean Catch Urine Culture - Final Serratia Marcescens Complete Objective HEAD AND NECK: No JVD. LUNGS: Clear. CARDIOVASCULAR: Regular S1 and S2 with no gallop. ABDOMEN: Soft. EXTREMITIES: Left hemiplegia with contraction of left arm. Castillo Bazan MD Nov 01, 2019 10:32
--- NOTE | 2019-11-01 12:00 | Pulmonology Progress Note ---
Assessment/Plan Assessment/Plan IMPRESSION: 1. Mild pulmonary vascular congestion. 2. Hypertension. 3. Diabetes mellitus. 4. Previous CVA. 5. Hypoglycemia. 6. Hypoxemia. 7. Epistaxis 8. Anorexia DISCUSSION: Continue low flow O2 Continue diuresis OK to dc back to snf. ABG reviewed, FiO2 increased Janes Cox M.D. Subjective Interval Events: None new Constitutional: Reports: no symptoms HEENT: Repors: no symptoms Respiratory: Reports: no symptoms Cardiovascular: Reports: no symptoms Gastrointestinal/Abdominal: Reports: no symptoms Allergies: Coded Allergies: No Known Allergies (Unverified , 10/07/17) Objective Last 24 Hour Vital Signs Date Time Temp Pulse Resp B/P (MAP) Pulse Ox O2 Delivery O2 Flow Rate FiO2 11/01/19 09:00 Nasal Cannula 4.0 Nasal Cannula 4.0 11/01/19 08:00 97.8 65 20 121/69 (86) 92 11/01/19 05:55 97.8 98 18 147/78 (101) 98 11/01/19 05:55 Nasal Cannula 4.0 Nasal Cannula 4.0 11/01/19 05:54 Nasal Cannula 4.0 Nasal Cannula 4.0 11/01/19 04:00 Nasal Cannula 4.0 Nasal Cannula 4.0 11/01/19 04:00 98.7 87 18 147/74 (98) 98 11/01/19 00:58 75 21 98 Nasal Cannula 4.0 36 73 21 97 11/01/19 00:00 Nasal Cannula 4.0 Nasal Cannula 4.0 11/01/19 00:00 98.1 74 22 103/59 (74) 96 11/01/19 00:00 77 10/31/19 21:26 83 100/61 10/31/19 21:00 83 100/61 10/31/19 20:00 99.7 83 22 100/61 (74) 95 10/31/19 20:00 Nasal Cannula 4.0 Nasal Cannula 4.0 10/31/19 20:00 73 10/31/19 19:10 73 17 98 Nasal Cannula 4.0 36 71 18 96 10/31/19 19:09 96 Nasal Cannula 4.0 36 10/31/19 16:00 71 10/31/19 16:00 97.2 88 20 140/87 (104) 94 10/31/19 16:00 Nasal Cannula 4.0 Nasal Cannula 2.0 10/31/19 13:08 82 17 98 Nasal Cannula 4.0 36 80 18 91 10/31/19 12:47 132/64 10/31/19 12:00 Nasal Cannula 4.0 Nasal Cannula 2.0 10/31/19 12:00 101.7 80 16 132/64 (86) 91 10/31/19 12:00 80 Intake and Output 10/31/19 11/01/19 19:00 07:00 Intake Total 1000 ml Output Total 600 ml 600 ml Balance 400 ml -600 ml Intake Oral 1000 ml Output Urine Total 600 ml 600 ml General Appearance: no acute distress HEENT: normocephalic Respiratory/Chest: chest wall non-tender, lungs clear Cardiovascular: normal peripheral pulses Abdomen: normal bowel sounds Laboratory Tests 11/01/19 09:35: White Blood Count 7.4, Red Blood Count 2.77L, Hemoglobin 8.9L, Hematocrit 26.5L , Mean Corpuscular Volume 96, Mean Corpuscular Hemoglobin 32.1H, Mean Corpuscular Hemoglobin Concent 33.5, Red Cell Distribution Width 12.9, Platelet Count 263, Mean Platelet Volume 6.4L, Neutrophils (%) (Auto) 60.7, Lymphocytes ( %) (Auto) 24.1, Monocytes (%) (Auto) 10.4H, Eosinophils (%) (Auto) 4.1H, Basophils (%) (Auto) 0.7 Current Medications Medications (Trade) Dose Ordered Sig/Leon Route PRN Reason Start Time Stop Time Status Last Admin Dose Admin Acetaminophen (Tylenol) 500 mg Q4H PRN ORAL Mild Pain/Temp > 100.5 11/01/19 06:15 11/23/19 06:14 Albuterol/ Ipratropium (Albuterol/ Ipratropium) 3 ml Q6HRT HHN 11/01/19 07:00 11/04/19 12:59 11/01/19 08:29 Amlodipine Besylate (Norvasc) 5 mg Q12HR ORAL 11/01/19 09:00 11/24/19 20:59 Aspirin (Ecotrin) 81 mg DAILY ORAL 11/01/19 09:00 11/24/19 08:59 11/01/19 09:19 Atorvastatin Calcium (Lipitor) 80 mg BEDTIME ORAL 11/01/19 21:00 11/23/19 20:59 Ceftriaxone Sodium 1 gm/ Dextrose 55 ml @ 110 mls/hr Q24H IVPB 11/01/19 16:00 11/05/19 15:59 Clopidogrel Bisulfate (Plavix) 75 mg DAILY ORAL 11/01/19 09:00 11/24/19 08:59 11/01/19 09:20 Dextrose (Dextrose 50%) 25 ml Q30M PRN IV Hypoglycemia 11/01/19 06:15 11/23/19 05:14 Dextrose (Dextrose 50%) 50 ml Q30M PRN IV Hypoglycemia 11/01/19 06:15 11/23/19 05:14 Docusate Sodium (Colace) 100 mg TWICE A DAY ORAL 11/01/19 09:00 11/23/19 17:59 11/01/19 09:20 Finasteride (Proscar) 5 mg DAILY ORAL 11/01/19 09:00 11/24/19 08:59 11/01/19 09:20 Furosemide (Lasix) 40 mg DAILY ORAL 11/01/19 09:00 11/24/19 09:59 11/01/19 09:21 Levothyroxine Sodium (Synthroid) 150 mcg DAILY@0630 ORAL 11/01/19 06:30 11/23/19 06:29 11/01/19 06:41 Metoprolol Tartrate (Lopressor) 25 mg Q12HR ORAL 11/01/19 09:00 11/23/19 10:59 Mirtazapine (Remeron) 7.5 mg BEDTIME ORAL 11/01/19 21:00 11/27/19 20:59 Pantoprazole (Protonix) 40 mg EVERY 12 HOURS IVP 11/01/19 09:00 11/28/19 22:14 11/01/19 09:21 Tamsulosin HCl (Flomax) 0.4 mg BID ORAL 11/01/19 09:00 11/23/19 20:59 11/01/19 09:20 Janes Cox MD Nov 01, 2019 11:59
[2019-11-01] MEDS ORDERED: Nitroglycerin Patch 0.4mg TDERMAL SCH (12:30)
--- NOTE | 2019-11-01 14:33 | Nephrology Progress Note ---
Assessment/Plan Problem List: (1) Renal failure (ARF), acute on chronic Assessment: Cr slightly higher (2) Elevated troponin (3) Hypoglycemia (4) Hypothyroid (5) HTN (hypertension) (6) Diabetic nephropathy (7) Anemia in chronic kidney disease (CKD) Assessment Urinary retention Renal failure (ARF), acute on chronic Anemia: s/p GI Bleed on anticoagulation h/o Hypertension Elevated troponin h/o Hypothyroid DM- Hypoglycemia on presentation h/o UTI Plan no chem panel today Reinsert Kamara BP management IV Iron watch HR 2D Echo NOTED Kidney MARCO A NOTED Avoid nephrotoxics antibiotics Per orders / per consultants Subjective ROS Limited/Unobtainable: No Constitutional: Reports: malaise, weakness Objective Objective Last 24 Hour Vital Signs Date Time Temp Pulse Resp B/P (MAP) Pulse Ox O2 Delivery O2 Flow Rate FiO2 11/01/19 14:20 70 18 99 Nasal Cannula 4.0 36 72 18 98 11/01/19 12:00 98.0 66 20 126/73 (90) 95 11/01/19 09:00 Nasal Cannula 4.0 Nasal Cannula 4.0 11/01/19 08:29 64 18 99 Nasal Cannula 4.0 36 66 20 97 11/01/19 08:29 97 Nasal Cannula 4.0 36 11/01/19 08:00 97.8 65 20 121/69 (86) 92 11/01/19 05:55 97.8 98 18 147/78 (101) 98 11/01/19 05:55 Nasal Cannula 4.0 Nasal Cannula 4.0 11/01/19 05:54 Nasal Cannula 4.0 Nasal Cannula 4.0 11/01/19 04:00 Nasal Cannula 4.0 Nasal Cannula 4.0 11/01/19 04:00 98.7 87 18 147/74 (98) 98 11/01/19 00:58 75 21 98 Nasal Cannula 4.0 36 73 21 97 11/01/19 00:00 Nasal Cannula 4.0 Nasal Cannula 4.0 11/01/19 00:00 98.1 74 22 103/59 (74) 96 11/01/19 00:00 77 10/31/19 21:26 83 100/61 10/31/19 21:00 83 100/61 10/31/19 20:00 99.7 83 22 100/61 (74) 95 10/31/19 20:00 Nasal Cannula 4.0 Nasal Cannula 4.0 10/31/19 20:00 73 10/31/19 19:10 73 17 98 Nasal Cannula 4.0 36 71 18 96 10/31/19 19:09 96 Nasal Cannula 4.0 36 10/31/19 16:00 71 10/31/19 16:00 97.2 88 20 140/87 (104) 94 10/31/19 16:00 Nasal Cannula 4.0 Nasal Cannula 2.0 Intake and Output 10/31/19 11/01/19 19:00 07:00 Intake Total 1000 ml Output Total 600 ml 600 ml Balance 400 ml -600 ml Intake Oral 1000 ml Output Urine Total 600 ml 600 ml Laboratory Tests 11/01/19 09:35: White Blood Count 7.4, Red Blood Count 2.77L, Hemoglobin 8.9L, Hematocrit 26.5L , Mean Corpuscular Volume 96, Mean Corpuscular Hemoglobin 32.1H, Mean Corpuscular Hemoglobin Concent 33.5, Red Cell Distribution Width 12.9, Platelet Count 263, Mean Platelet Volume 6.4L, Neutrophils (%) (Auto) 60.7, Lymphocytes ( %) (Auto) 24.1, Monocytes (%) (Auto) 10.4H, Eosinophils (%) (Auto) 4.1H, Basophils (%) (Auto) 0.7 Height (Feet): 5 Height (Inches): 10.00 Weight (Pounds): 218 General Appearance: no apparent distress Cardiovascular: normal rate Respiratory/Chest: decreased breath sounds Abdomen: soft Objective no change Rafa Farr MD Nov 01, 2019 14:33
--- NOTE | 2019-11-01 15:36 | General Progress Note ---
Assessment/Plan Problem List: (1) Sepsis ICD Codes: A41.9 - Sepsis, unspecified organism SNOMED: 16092409 (2) Hypoglycemia ICD Codes: E16.2 - Hypoglycemia, unspecified SNOMED: 813425175 (3) Elevated troponin ICD Codes: R79.89 - Other specified abnormal findings of blood chemistry SNOMED: 233980070, 784082825, 016461748 (4) Renal failure (ARF), acute on chronic ICD Codes: N17.9 - Acute kidney failure, unspecified; N18.9 - Chronic kidney disease, unspecified SNOMED: 203751732 Qualifiers: Qualified Codes: N17.9 - Acute kidney failure, unspecified; N18.3 - Chronic kidney disease, stage 3 (moderate) (5) Hypothyroid ICD Codes: E03.9 - Hypothyroidism, unspecified SNOMED: 97020913 (6) HTN (hypertension) ICD Codes: I10 - Essential (primary) hypertension SNOMED: 04018814 (7) Diabetic nephropathy ICD Codes: E11.21 - Type 2 diabetes mellitus with diabetic nephropathy SNOMED: 058229164 (8) Anemia in chronic kidney disease (CKD) ICD Codes: N18.9 - Chronic kidney disease, unspecified; D63.1 - Anemia in chronic kidney disease SNOMED: 814639031 Status: progressing Assessment/Plan: lethargic sepsis abx per id afebrile check cultures consulted dr jacobson for fever /sepsis poor appetite nose bleed weak Subjective ROS Limited/Unobtainable: Yes Allergies: Coded Allergies: No Known Allergies (Unverified , 10/07/17) Objective Last 24 Hour Vital Signs Date Time Temp Pulse Resp B/P (MAP) Pulse Ox O2 Delivery O2 Flow Rate FiO2 11/01/19 14:20 70 18 99 Nasal Cannula 4.0 36 72 18 98 11/01/19 12:00 98.0 66 20 126/73 (90) 95 11/01/19 09:00 Nasal Cannula 4.0 Nasal Cannula 4.0 11/01/19 08:29 64 18 99 Nasal Cannula 4.0 36 66 20 97 11/01/19 08:29 97 Nasal Cannula 4.0 36 11/01/19 08:00 97.8 65 20 121/69 (86) 92 11/01/19 05:55 97.8 98 18 147/78 (101) 98 11/01/19 05:55 Nasal Cannula 4.0 Nasal Cannula 4.0 11/01/19 05:54 Nasal Cannula 4.0 Nasal Cannula 4.0 11/01/19 04:00 Nasal Cannula 4.0 Nasal Cannula 4.0 11/01/19 04:00 98.7 87 18 147/74 (98) 98 11/01/19 00:58 75 21 98 Nasal Cannula 4.0 36 73 21 97 11/01/19 00:00 Nasal Cannula 4.0 Nasal Cannula 4.0 11/01/19 00:00 98.1 74 22 103/59 (74) 96 11/01/19 00:00 77 10/31/19 21:26 83 100/61 10/31/19 21:00 83 100/61 10/31/19 20:00 99.7 83 22 100/61 (74) 95 10/31/19 20:00 Nasal Cannula 4.0 Nasal Cannula 4.0 10/31/19 20:00 73 10/31/19 19:10 73 17 98 Nasal Cannula 4.0 36 71 18 96 10/31/19 19:09 96 Nasal Cannula 4.0 36 10/31/19 16:00 71 10/31/19 16:00 97.2 88 20 140/87 (104) 94 10/31/19 16:00 Nasal Cannula 4.0 Nasal Cannula 2.0 Intake and Output 10/31/19 11/01/19 19:00 07:00 Intake Total 1000 ml Output Total 600 ml 600 ml Balance 400 ml -600 ml Intake Oral 1000 ml Output Urine Total 600 ml 600 ml Laboratory Tests 11/01/19 09:35: White Blood Count 7.4, Red Blood Count 2.77L, Hemoglobin 8.9L, Hematocrit 26.5L , Mean Corpuscular Volume 96, Mean Corpuscular Hemoglobin 32.1H, Mean Corpuscular Hemoglobin Concent 33.5, Red Cell Distribution Width 12.9, Platelet Count 263, Mean Platelet Volume 6.4L, Neutrophils (%) (Auto) 60.7, Lymphocytes ( %) (Auto) 24.1, Monocytes (%) (Auto) 10.4H, Eosinophils (%) (Auto) 4.1H, Basophils (%) (Auto) 0.7 Height (Feet): 5 Height (Inches): 10.00 Weight (Pounds): 218 General Appearance: lethargic, confused Cardiovascular: normal rate Respiratory/Chest: lungs clear Oni Schilling MD Nov 01, 2019 15:36
[2019-11-01] MEDS: cefTRIAXone 1 GM in D5W 55 ML IVPB SCH (16:27)
--- NOTE | 2019-11-01 19:13 | NUR ---
HAND-OFF: Report given to LOU Booker.
--- NOTE | 2019-11-01 19:44 | NUR ---
NURSE NOTES: Patient is in bed, awake and alert x3. On nasal cannula 2L with no signs of distress or SOB. IV intact and patent. Kamara in place and draining to gravity. Bed locked in lowest position. Bed alarm on. Call light within reach. Will continue to monitor.
[2019-11-01] MEDS: Atorvastatin 80mg tab ORAL SCH (21:14)
[2019-11-02] VITALS: BP 144/64
[2019-11-02] MEDS: Albuterol/Ipratropium 3ml neb HHN SCH ×4 (01:15→19:46)
[2019-11-02 04:00] VITALS: BP 121/66
--- NOTE | 2019-11-02 07:46 | NUR ---
HAND-OFF: Report given to LOU Law.
[2019-11-02 08:00] VITALS: BP 150/73
[2019-11-02] MEDS: Docusate 100mg cap ORAL SCH ×2 (08:16→18:35)
[2019-11-02] MEDS: Aspirin EC 81mg tab ORAL SCH (08:16)
[2019-11-02] MEDS: Furosemide 40mg tab ORAL SCH (08:17)
[2019-11-02] MEDS: Tamsulosin 0.4mg cap ORAL SCH ×2 (08:17→18:35)
[2019-11-02 08:25] LABS: BASOPHILS % (AUTO) 1.1 % (0.0-2.0); EOSINOPHILS % (AUTO) 8.8 % (0.0-3.0); HEMATOCRIT 25.8 % (42.0-52.0); HEMOGLOBIN 8.5 G/DL (14.2-18.0); LYMPHOCYTES % (AUTO) 23.7 % (20.0-45.0); MEAN CORPUSCULAR VOLUME 95 FL (80-99); MONOCYTES % (AUTO) 8.2 % (1.0-10.0); NEUTROPHILS % (AUTO) 58.3 % (45.0-75.0); PLATELET COUNT 263 K/UL (150-450); RED CELL DISTRIBUTION WIDTH 12.8 % (11.6-14.8); WHITE BLOOD COUNT 7.2 K/UL (4.8-10.8)
--- NOTE | 2019-11-02 08:48 | NUR ---
NURSE NOTES: Received patient report from LOU Booker. Patient in Semi-Stevens's position, alert to name, resting comfortably, on 2 liters nasal cannula, in no apparent distress, bed in lowest position, call light within reach.
[2019-11-02 09:25] LABS: ALANINE AMINOTRANSFERASE 25 U/L (12-78); ALBUMIN 2.5 G/DL (3.4-5.0); ALBUMIN/GLOBULIN RATIO 0.6 (1.0-2.7); ALKALINE PHOSPHATASE 83 U/L (46-116); ANION GAP 13 mmol/L (5-15); ASPARTATE AMINO TRANSFERASE 30 U/L (15-37); BILIRUBIN,TOTAL 0.4 MG/DL (0.2-1.0); BLOOD UREA NITROGEN 43 mg/dL (7-18); CALCIUM 8.2 MG/DL (8.5-10.1); CARBON DIOXIDE 23 MMOL/L (21-32); CHLORIDE 108 MMOL/L (98-107); CREATININE 2.8 MG/DL (0.55-1.30); PHOSPHORUS 3.9 MG/DL (2.5-4.9); POTASSIUM 4.5 MMOL/L (3.5-5.1); SODIUM 143 MMOL/L (136-145)
--- NOTE | 2019-11-02 10:35 | Cardiac Electrophysiology PN ---
Assessment/Plan Assessment/Plan 1. NSTEMI. Troponin peak 1.8. FU troponins similar range between 0.8 and 1.2 and no CP. ECG no acute ischemia and Echo Nl EF. Due to renal failure. Has history of [place] in July 2019 with troponin of more than 24. EF of 60%. On Lopressor 25 bid, aspirin, Plavix and Lipitor 80 2. Questionable atrial fibrillation or DVT, currently remain in sinus rhythm. He used to be on anticoagulation. 3. HTN On Lopressor 25 bid, Norvasc 5 bid and Lasix 40 daily 4. History of CVA with left hemiplegia.On Plavix 5. Nose bleed. Stopped. FU Dr. Brown 6. Fever. 7. Hypothyroidism, on Synthroid. DW RN and Dr Farr Subjective Subjective No new events on [facility]. Had another troponin that was not significantly different than prior ones. Objective Last 24 Hour Vital Signs Date Time Temp Pulse Resp B/P (MAP) Pulse Ox O2 Delivery O2 Flow Rate FiO2 11/02/19 08:16 67 150/73 11/02/19 08:16 67 150/73 11/02/19 08:00 98.0 67 19 150/73 (98) 100 11/02/19 07:48 70 18 99 64 20 97 11/02/19 07:48 97 Room Air 21 11/02/19 04:00 98.4 69 18 121/66 (84) 93 11/02/19 01:16 73 18 99 Nasal Cannula 4.0 36 74 20 96 11/02/19 00:00 99.3 79 18 144/64 (90) 94 11/01/19 21:14 64 137/68 11/01/19 21:14 64 137/68 11/01/19 20:00 99.1 64 20 137/68 (91) 95 11/01/19 19:54 96 Nasal Cannula 4.0 36 11/01/19 19:54 71 18 99 Nasal Cannula 4.0 36 72 20 96 11/01/19 16:00 98.3 70 18 134/70 (91) 96 11/01/19 14:20 70 18 99 Nasal Cannula 4.0 36 72 18 98 11/01/19 12:00 98.0 66 20 126/73 (90) 95 Intake and Output 11/01/19 11/02/19 19:00 07:00 Intake Total 1100 ml 120 ml Output Total 1200 ml 1000 ml Balance -100 ml -880 ml Intake Oral 1100 ml 120 ml Output Urine Total 1200 ml 1000 ml # Voids 1 Laboratory Tests Test 11/02/19 07:00 White Blood Count 7.2 K/UL (4.8-10.8) Red Blood Count 2.70 M/UL (4.70-6.10) L Hemoglobin 8.5 G/DL (14.2-18.0) L Hematocrit 25.8 % (42.0-52.0) L Mean Corpuscular Volume 95 FL (80-99) Mean Corpuscular Hemoglobin 31.7 PG (27.0-31.0) H Mean Corpuscular Hemoglobin Concent 33.2 G/DL (32.0-36.0) Red Cell Distribution Width 12.8 % (11.6-14.8) Platelet Count 263 K/UL (150-450) Mean Platelet Volume 6.5 FL (6.5-10.1) Neutrophils (%) (Auto) 58.3 % (45.0-75.0) Lymphocytes (%) (Auto) 23.7 % (20.0-45.0) Monocytes (%) (Auto) 8.2 % (1.0-10.0) Eosinophils (%) (Auto) 8.8 % (0.0-3.0) H Basophils (%) (Auto) 1.1 % (0.0-2.0) Sodium Level 143 MMOL/L (136-145) Potassium Level 4.5 MMOL/L (3.5-5.1) Chloride Level 108 MMOL/L (98-107) H Carbon Dioxide Level 23 MMOL/L (21-32) Anion Gap 13 mmol/L (5-15) Blood Urea Nitrogen 43 mg/dL (7-18) H Creatinine 2.8 MG/DL (0.55-1.30) H Estimat Glomerular Filtration Rate 22.9 mL/min (>60) Glucose Level 91 MG/DL (74-106) Uric Acid 7.3 MG/DL (2.6-7.2) H Calcium Level 8.2 MG/DL (8.5-10.1) L Phosphorus Level 3.9 MG/DL (2.5-4.9) Magnesium Level 1.8 MG/DL (1.8-2.4) Total Bilirubin 0.4 MG/DL (0.2-1.0) Aspartate Amino Transf (AST/SGOT) 30 U/L (15-37) Alanine Aminotransferase (ALT/SGPT) 25 U/L (12-78) Alkaline Phosphatase 83 U/L (46-116) Troponin I 1.231 ng/mL (0.000-0.056) C-Reactive Protein, Quantitative 8.2 mg/dL (0.00-0.90) H Pro-B-Type Natriuretic Peptide 75464 pg/mL (0-125) H Total Protein 6.5 G/DL (6.4-8.2) Albumin 2.5 G/DL (3.4-5.0) L Globulin 4.0 g/dL Albumin/Globulin Ratio 0.6 (1.0-2.7) L Objective HEAD AND NECK: No JVD. LUNGS: Clear. CARDIOVASCULAR: Regular S1 and S2 with no gallop. ABDOMEN: Soft. EXTREMITIES: Left hemiplegia with contraction of left arm. Castillo Bazan MD Nov 02, 2019 10:35
--- NOTE | 2019-11-02 11:02 | Nephrology Progress Note ---
Assessment/Plan Problem List: (1) Renal failure (ARF), acute on chronic Assessment: Cr slightly higher (2) Elevated troponin (3) Hypoglycemia (4) Hypothyroid (5) HTN (hypertension) (6) Diabetic nephropathy (7) Anemia in chronic kidney disease (CKD) Assessment Urinary retention Renal failure (ARF), acute on chronic Anemia: s/p GI Bleed on anticoagulation h/o Hypertension Elevated troponin h/o Hypothyroid DM- Hypoglycemia on presentation h/o UTI Plan Reinsert Kamara BP management IV Iron watch HR 2D Echo NOTED Kidney MARCO A NOTED Avoid nephrotoxics antibiotics Per orders / per consultants Subjective ROS Limited/Unobtainable: No Constitutional: Reports: malaise, weakness Objective Objective Last 24 Hour Vital Signs Date Time Temp Pulse Resp B/P (MAP) Pulse Ox O2 Delivery O2 Flow Rate FiO2 11/02/19 08:16 67 150/73 11/02/19 08:16 67 150/73 11/02/19 08:00 98.0 67 19 150/73 (98) 100 11/02/19 07:48 70 18 99 64 20 97 11/02/19 07:48 97 Room Air 21 11/02/19 04:00 98.4 69 18 121/66 (84) 93 11/02/19 01:16 73 18 99 Nasal Cannula 4.0 36 74 20 96 11/02/19 00:00 99.3 79 18 144/64 (90) 94 11/01/19 21:14 64 137/68 11/01/19 21:14 64 137/68 11/01/19 20:00 99.1 64 20 137/68 (91) 95 11/01/19 19:54 96 Nasal Cannula 4.0 36 11/01/19 19:54 71 18 99 Nasal Cannula 4.0 36 72 20 96 11/01/19 16:00 98.3 70 18 134/70 (91) 96 11/01/19 14:20 70 18 99 Nasal Cannula 4.0 36 72 18 98 11/01/19 12:00 98.0 66 20 126/73 (90) 95 Intake and Output 11/01/19 11/02/19 19:00 07:00 Intake Total 1100 ml 120 ml Output Total 1200 ml 1000 ml Balance -100 ml -880 ml Intake Oral 1100 ml 120 ml Output Urine Total 1200 ml 1000 ml # Voids 1 Laboratory Tests Test 11/02/19 07:00 White Blood Count 7.2 K/UL (4.8-10.8) Red Blood Count 2.70 M/UL (4.70-6.10) L Hemoglobin 8.5 G/DL (14.2-18.0) L Hematocrit 25.8 % (42.0-52.0) L Mean Corpuscular Volume 95 FL (80-99) Mean Corpuscular Hemoglobin 31.7 PG (27.0-31.0) H Mean Corpuscular Hemoglobin Concent 33.2 G/DL (32.0-36.0) Red Cell Distribution Width 12.8 % (11.6-14.8) Platelet Count 263 K/UL (150-450) Mean Platelet Volume 6.5 FL (6.5-10.1) Neutrophils (%) (Auto) 58.3 % (45.0-75.0) Lymphocytes (%) (Auto) 23.7 % (20.0-45.0) Monocytes (%) (Auto) 8.2 % (1.0-10.0) Eosinophils (%) (Auto) 8.8 % (0.0-3.0) H Basophils (%) (Auto) 1.1 % (0.0-2.0) Sodium Level 143 MMOL/L (136-145) Potassium Level 4.5 MMOL/L (3.5-5.1) Chloride Level 108 MMOL/L (98-107) H Carbon Dioxide Level 23 MMOL/L (21-32) Anion Gap 13 mmol/L (5-15) Blood Urea Nitrogen 43 mg/dL (7-18) H Creatinine 2.8 MG/DL (0.55-1.30) H Estimat Glomerular Filtration Rate 22.9 mL/min (>60) Glucose Level 91 MG/DL (74-106) Uric Acid 7.3 MG/DL (2.6-7.2) H Calcium Level 8.2 MG/DL (8.5-10.1) L Phosphorus Level 3.9 MG/DL (2.5-4.9) Magnesium Level 1.8 MG/DL (1.8-2.4) Total Bilirubin 0.4 MG/DL (0.2-1.0) Aspartate Amino Transf (AST/SGOT) 30 U/L (15-37) Alanine Aminotransferase (ALT/SGPT) 25 U/L (12-78) Alkaline Phosphatase 83 U/L (46-116) Troponin I 1.231 ng/mL (0.000-0.056) C-Reactive Protein, Quantitative 8.2 mg/dL (0.00-0.90) H Pro-B-Type Natriuretic Peptide 55398 pg/mL (0-125) H Total Protein 6.5 G/DL (6.4-8.2) Albumin 2.5 G/DL (3.4-5.0) L Globulin 4.0 g/dL Albumin/Globulin Ratio 0.6 (1.0-2.7) L Current Medications Medications (Trade) Dose Ordered Sig/Leon Route PRN Reason Start Time Stop Time Status Last Admin Dose Admin Acetaminophen (Tylenol) 500 mg Q4H PRN ORAL Mild Pain/Temp > 100.5 11/01/19 06:15 11/23/19 06:14 Albuterol/ Ipratropium (Albuterol/ Ipratropium) 3 ml Q6HRT HHN 11/01/19 07:00 11/04/19 12:59 11/02/19 07:47 Amlodipine Besylate (Norvasc) 5 mg Q12HR ORAL 11/01/19 09:00 11/24/19 20:59 11/02/19 08:16 Aspirin (Ecotrin) 81 mg DAILY ORAL 11/01/19 09:00 11/24/19 08:59 11/02/19 08:16 Atorvastatin Calcium (Lipitor) 80 mg BEDTIME ORAL 11/01/19 21:00 11/23/19 20:59 11/01/19 21:14 Ceftriaxone Sodium 1 gm/ Dextrose 55 ml @ 110 mls/hr Q24H IVPB 11/01/19 16:00 11/05/19 15:59 11/01/19 16:27 Clopidogrel Bisulfate (Plavix) 75 mg DAILY ORAL 11/01/19 09:00 11/24/19 08:59 11/02/19 08:17 Dextrose (Dextrose 50%) 25 ml Q30M PRN IV Hypoglycemia 11/01/19 06:15 11/23/19 05:14 Dextrose (Dextrose 50%) 50 ml Q30M PRN IV Hypoglycemia 2/15/20 06:15 11/23/19 05:14 Docusate Sodium (Colace) 100 mg TWICE A DAY ORAL 11/01/19 09:00 11/23/19 17:59 11/02/19 08:16 Finasteride (Proscar) 5 mg DAILY ORAL 11/01/19 09:00 11/24/19 08:59 11/02/19 08:16 Furosemide (Lasix) 40 mg DAILY ORAL 11/01/19 09:00 11/24/19 09:59 11/02/19 08:17 Levothyroxine Sodium (Synthroid) 150 mcg DAILY@0630 ORAL 11/01/19 06:30 11/23/19 06:29 11/02/19 06:20 Metoprolol Tartrate (Lopressor) 25 mg Q12HR ORAL 11/01/19 09:00 11/23/19 10:59 11/02/19 08:16 Mirtazapine (Remeron) 7.5 mg BEDTIME ORAL 11/01/19 21:00 11/27/19 20:59 11/01/19 21:14 Pantoprazole (Protonix) 40 mg DAILY ORAL 11/02/19 09:00 12/02/19 08:59 11/02/19 08:16 Tamsulosin HCl (Flomax) 0.4 mg BID ORAL 11/01/19 09:00 11/23/19 20:59 11/02/19 08:17 Laboratory Tests 11/02/19 07:00: White Blood Count 7.2, Red Blood Count 2.70L, Hemoglobin 8.5L, Hematocrit 25.8L , Mean Corpuscular Volume 95, Mean Corpuscular Hemoglobin 31.7H, Mean Corpuscular Hemoglobin Concent 33.2, Red Cell Distribution Width 12.8, Platelet Count 263, Mean Platelet Volume 6.5, Neutrophils (%) (Auto) 58.3, Lymphocytes (% ) (Auto) 23.7, Monocytes (%) (Auto) 8.2, Eosinophils (%) (Auto) 8.8H, Basophils (%) (Auto) 1.1, Sodium Level 143, Potassium Level 4.5, Chloride Level 108H, Carbon Dioxide Level 23, Anion Gap 13, Blood Urea Nitrogen 43H, Creatinine 2.8H , Estimat Glomerular Filtration Rate 22.9, Glucose Level 91, Uric Acid 7.3H, Calcium Level 8.2L, Phosphorus Level 3.9, Magnesium Level 1.8, Total Bilirubin 0.4, Aspartate Amino Transf (AST/SGOT) 30, Alanine Aminotransferase (ALT/SGPT) 25, Alkaline Phosphatase 83, Troponin I 1.231H, C-Reactive Protein, Quantitative 8.2H, Pro-B-Type Natriuretic Peptide 22688V, Total Protein 6.5, Albumin 2.5L, Globulin 4.0, Albumin/Globulin Ratio 0.6L Height (Feet): 5 Height (Inches): 10.00 Weight (Pounds): 218 General Appearance: no apparent distress Cardiovascular: normal rate Respiratory/Chest: decreased breath sounds Abdomen: soft Objective no change Rafa Farr MD Nov 02, 2019 11:02
--- NOTE | 2019-11-02 11:24 | General Progress Note ---
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 D/w Dr. Hanson and he concurred. Subjective Date patient seen: Nov 02, 2019 Time patient seen: 10:15 - am Allergies: Coded Allergies: No Known Allergies (Unverified , 10/07/17) Subjective REVIEW OF SYSTEMS: Denies rash, fever, chills, sweating, dizziness, drowsiness, blurred vision, sore throat, or change in weight. No shortness of breath or chest pain. No nausea, vomiting, diarrhea, or blood in the stool or urine. No bowel or bladder incontinence. No dysuria. SUBJECTIVE: Patient showing no signs of pain or distress. Reports he is feeling well today. Objective Last 24 Hour Vital Signs Date Time Temp Pulse Resp B/P (MAP) Pulse Ox O2 Delivery O2 Flow Rate FiO2 11/02/19 08:17 Nasal Cannula 4.0 Nasal Cannula 4.0 11/02/19 08:16 67 150/73 11/02/19 08:16 67 150/73 11/02/19 08:00 98.0 67 19 150/73 (98) 100 11/02/19 07:48 70 18 99 64 20 97 11/02/19 07:48 97 Room Air 21 11/02/19 04:00 98.4 69 18 121/66 (84) 93 11/02/19 01:16 73 18 99 Nasal Cannula 4.0 36 74 20 96 11/02/19 00:00 99.3 79 18 144/64 (90) 94 11/01/19 21:14 64 137/68 11/01/19 21:14 64 137/68 11/01/19 20:00 99.1 64 20 137/68 (91) 95 11/01/19 19:54 96 Nasal Cannula 4.0 36 11/01/19 19:54 71 18 99 Nasal Cannula 4.0 36 72 20 96 11/01/19 16:00 98.3 70 18 134/70 (91) 96 11/01/19 14:20 70 18 99 Nasal Cannula 4.0 36 72 18 98 11/01/19 12:00 98.0 66 20 126/73 (90) 95 Intake and Output 11/01/19 11/02/19 19:00 07:00 Intake Total 1100 ml 120 ml Output Total 1200 ml 1000 ml Balance -100 ml -880 ml Intake Oral 1100 ml 120 ml Output Urine Total 1200 ml 1000 ml # Voids 1 Laboratory Tests 11/02/19 07:00: White Blood Count 7.2, Red Blood Count 2.70L, Hemoglobin 8.5L, Hematocrit 25.8L , Mean Corpuscular Volume 95, Mean Corpuscular Hemoglobin 31.7H, Mean Corpuscular Hemoglobin Concent 33.2, Red Cell Distribution Width 12.8, Platelet Count 263, Mean Platelet Volume 6.5, Neutrophils (%) (Auto) 58.3, Lymphocytes (% ) (Auto) 23.7, Monocytes (%) (Auto) 8.2, Eosinophils (%) (Auto) 8.8H, Basophils (%) (Auto) 1.1, Sodium Level 143, Potassium Level 4.5, Chloride Level 108H, Carbon Dioxide Level 23, Anion Gap 13, Blood Urea Nitrogen 43H, Creatinine 2.8H , Estimat Glomerular Filtration Rate 22.9, Glucose Level 91, Uric Acid 7.3H, Calcium Level 8.2L, Phosphorus Level 3.9, Magnesium Level 1.8, Total Bilirubin 0.4, Aspartate Amino Transf (AST/SGOT) 30, Alanine Aminotransferase (ALT/SGPT) 25, Alkaline Phosphatase 83, Troponin I 1.231H, C-Reactive Protein, Quantitative 8.2H, Pro-B-Type Natriuretic Peptide 98288K, Total Protein 6.5, Albumin 2.5L, Globulin 4.0, Albumin/Globulin Ratio 0.6L Height (Feet): 5 Height (Inches): 10.00 Weight (Pounds): 218 Objective GENERAL: Alert, awake, and oriented. LUNGS: Decreased breath sounds bilaterally. HEART: S1 and S2 regular. ABDOMEN: Soft, nontender. EXTREMITIES: No cyanosis. No clubbing. NEURO: No changes. Warren Torres Nov 02, 2019 11:24
--- NOTE | 2019-11-02 11:31 | Hematology/Onc Progress Note ---
Assessment/Plan Assessment/Plan Assessment and Recs: # Anemia due to underlying GI bleed -- patient presents with hematemesis before and now with barb --> as per GI eval, may need endoscopy --> has been started on ppi --> cea has been ordered --> Hgb goal >7. Transfuse prn. --> Will sign consent if necessary --> Epogen not started. IRON IV x 5 days completed --> Consider octreotide gtt as per gi eval --> Medications have been reviewed --> Hgb 8.8 -->8.6-->8.7-->8.9-->8.5 # Coagulation defect/Bleeding, multifactorial usually related to poor PO intake versus medications, in this case related to coumadin --> administer Vitamin K if patient is bleeding or FFP if the INR is >10 --> hold off on ffp unless active procedure/bleeding, first begin with vit K 10 --> mixing study as needed --> HAVE STOPPED COUMADIN --> per cards, hold off at this time, is aware of afib hx # Anemia due to folic acid deficiency/iron deficiency as well --> prior folic acid<5 --> recheck levels # Elevated troponin, rising, ?nstemi --> aware --> anticoag as per his recs # Renal failure (ARF), acute on chronic --> per renal Dr. Farr # UTI --> abx as needed --> abx: ceftriaxone # Dvt ppx on scds now The timing of this note does not necessarily reflect the time of the patient was seen. Greatly appreciate consultation. Subjective Allergies: Coded Allergies: No Known Allergies (Unverified , 10/07/17) Subjective 10/27: awake, venous duplex negative, iv iron, nose bleed 10/28: is awake, alert on 2l flow, no bleeding, coags noted 10/29: no major changes, seen by pulm, coag midly elevated, hgb in the 8s 10/30: no events, no bleeding or chills, no major changes, hgb 8.7 10/31: to be transferred to med surg, ct head negative, h/h stable, on ceftriaxone 11/02: awake and alert, no acute events, labs reviewed, nc Objective Objective Current Medications Medications (Trade) Dose Ordered Sig/Leon Route PRN Reason Start Time Stop Time Status Last Admin Dose Admin Acetaminophen (Tylenol) 500 mg Q4H PRN ORAL Mild Pain/Temp > 100.5 11/01/19 06:15 11/23/19 06:14 Albuterol/ Ipratropium (Albuterol/ Ipratropium) 3 ml Q6HRT HHN 11/01/19 07:00 11/04/19 12:59 11/02/19 07:47 Amlodipine Besylate (Norvasc) 5 mg Q12HR ORAL 11/01/19 09:00 11/24/19 20:59 11/02/19 08:16 Aspirin (Ecotrin) 81 mg DAILY ORAL 11/01/19 09:00 11/24/19 08:59 11/02/19 08:16 Atorvastatin Calcium (Lipitor) 80 mg BEDTIME ORAL 11/01/19 21:00 11/23/19 20:59 11/01/19 21:14 Ceftriaxone Sodium 1 gm/ Dextrose 55 ml @ 110 mls/hr Q24H IVPB 11/01/19 16:00 11/05/19 15:59 11/01/19 16:27 Clopidogrel Bisulfate (Plavix) 75 mg DAILY ORAL 11/01/19 09:00 11/24/19 08:59 11/02/19 08:17 Dextrose (Dextrose 50%) 25 ml Q30M PRN IV Hypoglycemia 11/01/19 06:15 11/23/19 05:14 Dextrose (Dextrose 50%) 50 ml Q30M PRN IV Hypoglycemia 11/01/19 06:15 11/23/19 05:14 Docusate Sodium (Colace) 100 mg TWICE A DAY ORAL 11/01/19 09:00 11/23/19 17:59 11/02/19 08:16 Finasteride (Proscar) 5 mg DAILY ORAL 11/01/19 09:00 11/24/19 08:59 11/02/19 08:16 Furosemide (Lasix) 40 mg DAILY ORAL 11/01/19 09:00 11/24/19 09:59 11/02/19 08:17 Levothyroxine Sodium (Synthroid) 150 mcg DAILY@0630 ORAL 11/01/19 06:30 11/23/19 06:29 11/02/19 06:20 Metoprolol Tartrate (Lopressor) 25 mg Q12HR ORAL 11/01/19 09:00 11/23/19 10:59 11/02/19 08:16 Mirtazapine (Remeron) 7.5 mg BEDTIME ORAL 11/01/19 21:00 11/27/19 20:59 11/01/19 21:14 Pantoprazole (Protonix) 40 mg DAILY ORAL 11/02/19 09:00 12/02/19 08:59 11/02/19 08:16 Tamsulosin HCl (Flomax) 0.4 mg BID ORAL 11/01/19 09:00 11/23/19 20:59 11/02/19 08:17 Last 24 Hour Vital Signs Date Time Temp Pulse Resp B/P (MAP) Pulse Ox O2 Delivery O2 Flow Rate FiO2 11/02/19 08:17 Nasal Cannula 4.0 Nasal Cannula 4.0 11/02/19 08:16 67 150/73 11/02/19 08:16 67 150/73 11/02/19 08:00 98.0 67 19 150/73 (98) 100 11/02/19 07:48 70 18 99 64 20 97 11/02/19 07:48 97 Room Air 21 11/02/19 04:00 98.4 69 18 121/66 (84) 93 11/02/19 01:16 73 18 99 Nasal Cannula 4.0 36 74 20 96 11/02/19 00:00 99.3 79 18 144/64 (90) 94 11/01/19 21:14 64 137/68 11/01/19 21:14 64 137/68 11/01/19 20:00 99.1 64 20 137/68 (91) 95 11/01/19 19:54 96 Nasal Cannula 4.0 36 11/01/19 19:54 71 18 99 Nasal Cannula 4.0 36 72 20 96 11/01/19 16:00 98.3 70 18 134/70 (91) 96 11/01/19 14:20 70 18 99 Nasal Cannula 4.0 36 72 18 98 11/01/19 12:00 98.0 66 20 126/73 (90) 95 11/01/19 09:00 Nasal Cannula 4.0 Nasal Cannula 4.0 11/01/19 08:29 64 18 99 Nasal Cannula 4.0 36 66 20 97 11/01/19 08:29 97 Nasal Cannula 4.0 36 11/01/19 08:00 97.8 65 20 121/69 (86) 92 11/01/19 05:55 97.8 98 18 147/78 (101) 98 11/01/19 05:55 Nasal Cannula 4.0 Nasal Cannula 4.0 11/01/19 05:54 Nasal Cannula 4.0 Nasal Cannula 4.0 11/01/19 04:00 Nasal Cannula 4.0 Nasal Cannula 4.0 11/01/19 04:00 98.7 87 18 147/74 (98) 98 11/01/19 00:58 75 21 98 Nasal Cannula 4.0 36 73 21 97 11/01/19 00:00 Nasal Cannula 4.0 Nasal Cannula 4.0 11/01/19 00:00 98.1 74 22 103/59 (74) 96 11/01/19 00:00 77 10/31/19 21:26 83 100/61 10/31/19 21:00 83 100/61 10/31/19 20:00 99.7 83 22 100/61 (74) 95 10/31/19 20:00 Nasal Cannula 4.0 Nasal Cannula 4.0 10/31/19 20:00 73 10/31/19 19:10 73 17 98 Nasal Cannula 4.0 36 71 18 96 10/31/19 19:09 96 Nasal Cannula 4.0 36 10/31/19 16:00 71 10/31/19 16:00 97.2 88 20 140/87 (104) 94 10/31/19 16:00 Nasal Cannula 4.0 Nasal Cannula 2.0 10/31/19 13:08 82 17 98 Nasal Cannula 4.0 36 80 18 91 10/31/19 12:47 132/64 10/31/19 12:00 Nasal Cannula 4.0 Nasal Cannula 2.0 10/31/19 12:00 101.7 80 16 132/64 (86) 91 10/31/19 12:00 80 Intake and Output 11/01/19 11/02/19 19:00 07:00 Intake Total 1100 ml 120 ml Output Total 1200 ml 1000 ml Balance -100 ml -880 ml Intake Oral 1100 ml 120 ml Output Urine Total 1200 ml 1000 ml # Voids 1 Labs Test 10/30/19 11:30 10/30/19 20:45 2/14/20 03:35 11/01/19 09:35 Arterial Blood pH 7.364 (7.350-7.450) Arterial Blood Partial Pressure CO2 42.9 mmHg (35.0-45.0) Arterial Blood Partial Pressure O2 62.5 mmHg (75.0-100.0) Arterial Blood HCO3 23.9 mmol/L (22.0-26.0) Arterial Blood Oxygen Saturation 91.2 % (95-100) Arterial Blood Base Excess -1.4 (-2-2) Gael Test Positive Ammonia 13 umol/L (11-32) Vitamin B12 Level 695 PG/ML (193-986) White Blood Count 6.1 K/UL (4.8-10.8) 7.4 K/UL (4.8-10.8) Red Blood Count 2.78 M/UL (4.70-6.10) 2.77 M/UL (4.70-6.10) Hemoglobin 8.9 G/DL (14.2-18.0) 8.9 G/DL (14.2-18.0) Hematocrit 26.6 % (42.0-52.0) 26.5 % (42.0-52.0) Mean Corpuscular Volume 96 FL (80-99) 96 FL (80-99) Mean Corpuscular Hemoglobin 32.0 PG (27.0-31.0) 32.1 PG (27.0-31.0) Mean Corpuscular Hemoglobin Concent 33.5 G/DL (32.0-36.0) 33.5 G/DL (32.0-36.0) Red Cell Distribution Width 12.9 % (11.6-14.8) 12.9 % (11.6-14.8) Platelet Count 234 K/UL (150-450) 263 K/UL (150-450) Mean Platelet Volume 6.6 FL (6.5-10.1) 6.4 FL (6.5-10.1) Neutrophils (%) (Auto) 62.9 % (45.0-75.0) 60.7 % (45.0-75.0) Lymphocytes (%) (Auto) 20.3 % (20.0-45.0) 24.1 % (20.0-45.0) Monocytes (%) (Auto) 12.1 % (1.0-10.0) 10.4 % (1.0-10.0) Eosinophils (%) (Auto) 3.8 % (0.0-3.0) 4.1 % (0.0-3.0) Basophils (%) (Auto) 0.8 % (0.0-2.0) 0.7 % (0.0-2.0) Sodium Level 143 MMOL/L (136-145) Potassium Level 4.4 MMOL/L (3.5-5.1) Chloride Level 108 MMOL/L (98-107) Carbon Dioxide Level 26 MMOL/L (21-32) Anion Gap 9 mmol/L (5-15) Blood Urea Nitrogen 42 mg/dL (7-18) Creatinine 2.9 MG/DL (0.55-1.30) Estimat Glomerular Filtration Rate 22.0 mL/min (>60) Glucose Level 121 MG/DL (74-106) Uric Acid 6.7 MG/DL (2.6-7.2) Calcium Level 8.1 MG/DL (8.5-10.1) Phosphorus Level 3.6 MG/DL (2.5-4.9) Magnesium Level 1.9 MG/DL (1.8-2.4) Total Bilirubin 0.4 MG/DL (0.2-1.0) Aspartate Amino Transf (AST/SGOT) 29 U/L (15-37) Alanine Aminotransferase (ALT/SGPT) 17 U/L (12-78) Alkaline Phosphatase 92 U/L (46-116) Troponin I 0.825 ng/mL (0.000-0.056) C-Reactive Protein, Quantitative 5.6 mg/dL (0.00-0.90) Pro-B-Type Natriuretic Peptide > 73847 pg/mL (0-125) Total Protein 6.5 G/DL (6.4-8.2) Albumin 2.8 G/DL (3.4-5.0) Globulin 3.7 g/dL Albumin/Globulin Ratio 0.8 (1.0-2.7) Test 11/02/19 07:00 White Blood Count 7.2 K/UL (4.8-10.8) Red Blood Count 2.70 M/UL (4.70-6.10) Hemoglobin 8.5 G/DL (14.2-18.0) Hematocrit 25.8 % (42.0-52.0) Mean Corpuscular Volume 95 FL (80-99) Mean Corpuscular Hemoglobin 31.7 PG (27.0-31.0) Mean Corpuscular Hemoglobin Concent 33.2 G/DL (32.0-36.0) Red Cell Distribution Width 12.8 % (11.6-14.8) Platelet Count 263 K/UL (150-450) Mean Platelet Volume 6.5 FL (6.5-10.1) Neutrophils (%) (Auto) 58.3 % (45.0-75.0) Lymphocytes (%) (Auto) 23.7 % (20.0-45.0) Monocytes (%) (Auto) 8.2 % (1.0-10.0) Eosinophils (%) (Auto) 8.8 % (0.0-3.0) Basophils (%) (Auto) 1.1 % (0.0-2.0) Sodium Level 143 MMOL/L (136-145) Potassium Level 4.5 MMOL/L (3.5-5.1) Chloride Level 108 MMOL/L (98-107) Carbon Dioxide Level 23 MMOL/L (21-32) Anion Gap 13 mmol/L (5-15) Blood Urea Nitrogen 43 mg/dL (7-18) Creatinine 2.8 MG/DL (0.55-1.30) Estimat Glomerular Filtration Rate 22.9 mL/min (>60) Glucose Level 91 MG/DL (74-106) Uric Acid 7.3 MG/DL (2.6-7.2) Calcium Level 8.2 MG/DL (8.5-10.1) Phosphorus Level 3.9 MG/DL (2.5-4.9) Magnesium Level 1.8 MG/DL (1.8-2.4) Total Bilirubin 0.4 MG/DL (0.2-1.0) Aspartate Amino Transf (AST/SGOT) 30 U/L (15-37) Alanine Aminotransferase (ALT/SGPT) 25 U/L (12-78) Alkaline Phosphatase 83 U/L (46-116) Troponin I 1.231 ng/mL (0.000-0.056) C-Reactive Protein, Quantitative 8.2 mg/dL (0.00-0.90) Pro-B-Type Natriuretic Peptide 41854 pg/mL (0-125) Total Protein 6.5 G/DL (6.4-8.2) Albumin 2.5 G/DL (3.4-5.0) Globulin 4.0 g/dL Albumin/Globulin Ratio 0.6 (1.0-2.7) Height (Feet): 5 Height (Inches): 10.00 Weight (Pounds): 218 Objective PE Vitals: reviewed General Appearance: NAD + chronically ill HEENT: normocephalic, atraumatic ++ biconjunctival hemorrhage-> improved Neck: non-tender, normal alignment Respiratory/Chest: nromal breath sounds bilaterally, NC+ Cardiovascular/Chest: normal peripheral pulses, normal rate Abdomen: normal bowel sounds, soft, nontender Extremities: normal range of motion, Right arm skin tear, left sided weaknness NEURO: ++ left sided weakness Nate Whyte MD Nov 02, 2019 11:31
--- NOTE | 2019-11-02 11:32 | General Progress Note ---
Assessment/Plan Assessment/Plan: Assessment - Anorexia, appears to be related to food choices - Azotemia - anemia - Functional decline - Elevated Troponin - hypothyroid Recommendations - Remeron trial - calorie count - liquid shakes / supplements - family to bring home foods - check OB --> negative Subjective Allergies: Coded Allergies: No Known Allergies (Unverified , 10/07/17) Subjective Feels OK no abd complaints Troponin noted Objective Last 24 Hour Vital Signs Date Time Temp Pulse Resp B/P (MAP) Pulse Ox O2 Delivery O2 Flow Rate FiO2 11/02/19 08:17 Nasal Cannula 4.0 Nasal Cannula 4.0 11/02/19 08:16 67 150/73 11/02/19 08:16 67 150/73 11/02/19 08:00 98.0 67 19 150/73 (98) 100 11/02/19 07:48 70 18 99 64 20 97 11/02/19 07:48 97 Room Air 21 11/02/19 04:00 98.4 69 18 121/66 (84) 93 11/02/19 01:16 73 18 99 Nasal Cannula 4.0 36 74 20 96 11/02/19 00:00 99.3 79 18 144/64 (90) 94 11/01/19 21:14 64 137/68 11/01/19 21:14 64 137/68 11/01/19 20:00 99.1 64 20 137/68 (91) 95 11/01/19 19:54 96 Nasal Cannula 4.0 36 11/01/19 19:54 71 18 99 Nasal Cannula 4.0 36 72 20 96 11/01/19 16:00 98.3 70 18 134/70 (91) 96 11/01/19 14:20 70 18 99 Nasal Cannula 4.0 36 72 18 98 11/01/19 12:00 98.0 66 20 126/73 (90) 95 Intake and Output 11/01/19 11/02/19 19:00 07:00 Intake Total 1100 ml 120 ml Output Total 1200 ml 1000 ml Balance -100 ml -880 ml Intake Oral 1100 ml 120 ml Output Urine Total 1200 ml 1000 ml # Voids 1 Laboratory Tests 11/02/19 07:00: White Blood Count 7.2, Red Blood Count 2.70L, Hemoglobin 8.5L, Hematocrit 25.8L , Mean Corpuscular Volume 95, Mean Corpuscular Hemoglobin 31.7H, Mean Corpuscular Hemoglobin Concent 33.2, Red Cell Distribution Width 12.8, Platelet Count 263, Mean Platelet Volume 6.5, Neutrophils (%) (Auto) 58.3, Lymphocytes (% ) (Auto) 23.7, Monocytes (%) (Auto) 8.2, Eosinophils (%) (Auto) 8.8H, Basophils (%) (Auto) 1.1, Sodium Level 143, Potassium Level 4.5, Chloride Level 108H, Carbon Dioxide Level 23, Anion Gap 13, Blood Urea Nitrogen 43H, Creatinine 2.8H , Estimat Glomerular Filtration Rate 22.9, Glucose Level 91, Uric Acid 7.3H, Calcium Level 8.2L, Phosphorus Level 3.9, Magnesium Level 1.8, Total Bilirubin 0.4, Aspartate Amino Transf (AST/SGOT) 30, Alanine Aminotransferase (ALT/SGPT) 25, Alkaline Phosphatase 83, Troponin I 1.231H, C-Reactive Protein, Quantitative 8.2H, Pro-B-Type Natriuretic Peptide [id number], Total Protein 6.5, Albumin 2.5L, Globulin 4.0, Albumin/Globulin Ratio 0.6L Height (Feet): 5 Height (Inches): 10.00 Weight (Pounds): 218 Objective WDWN NCAT supple CTA RR abd soft no edema Naheed Welch MD Nov 02, 2019 11:32
[2019-11-02 12:00] VITALS: BP 144/80
--- NOTE | 2019-11-02 13:12 | Pulmonology Progress Note ---
Assessment/Plan Assessment/Plan IMPRESSION: 1. Mild pulmonary vascular congestion. 2. Hypertension. 3. Diabetes mellitus. 4. Previous CVA. 5. Hypoglycemia. 6. Hypoxemia. 7. Epistaxis 8. Anorexia DISCUSSION: Continue low flow O2 Continue diuresis OK to dc back to snf. Janes Cox M.D. Subjective Interval Events: None new Constitutional: Reports: no symptoms HEENT: Repors: no symptoms Respiratory: Reports: no symptoms Cardiovascular: Reports: no symptoms Gastrointestinal/Abdominal: Reports: no symptoms Allergies: Coded Allergies: No Known Allergies (Unverified , 10/07/17) Objective Last 24 Hour Vital Signs Date Time Temp Pulse Resp B/P (MAP) Pulse Ox O2 Delivery O2 Flow Rate FiO2 11/02/19 08:17 Nasal Cannula 4.0 Nasal Cannula 4.0 11/02/19 08:16 67 150/73 11/02/19 08:16 67 150/73 11/02/19 08:00 98.0 67 19 150/73 (98) 100 11/02/19 07:48 70 18 99 64 20 97 11/02/19 07:48 97 Room Air 21 11/02/19 04:00 98.4 69 18 121/66 (84) 93 11/02/19 01:16 73 18 99 Nasal Cannula 4.0 36 74 20 96 11/02/19 00:00 99.3 79 18 144/64 (90) 94 11/01/19 21:14 64 137/68 11/01/19 21:14 64 137/68 11/01/19 20:00 99.1 64 20 137/68 (91) 95 11/01/19 19:54 96 Nasal Cannula 4.0 36 11/01/19 19:54 71 18 99 Nasal Cannula 4.0 36 72 20 96 11/01/19 16:00 98.3 70 18 134/70 (91) 96 11/01/19 14:20 70 18 99 Nasal Cannula 4.0 36 72 18 98 Intake and Output 11/01/19 11/02/19 19:00 07:00 Intake Total 1100 ml 120 ml Output Total 1200 ml 1000 ml Balance -100 ml -880 ml Intake Oral 1100 ml 120 ml Output Urine Total 1200 ml 1000 ml # Voids 1 General Appearance: no acute distress HEENT: normocephalic Respiratory/Chest: chest wall non-tender, lungs clear Cardiovascular: normal peripheral pulses, normal rate Abdomen: normal bowel sounds Laboratory Tests 11/02/19 07:00: White Blood Count 7.2, Red Blood Count 2.70L, Hemoglobin 8.5L, Hematocrit 25.8L , Mean Corpuscular Volume 95, Mean Corpuscular Hemoglobin 31.7H, Mean Corpuscular Hemoglobin Concent 33.2, Red Cell Distribution Width 12.8, Platelet Count 263, Mean Platelet Volume 6.5, Neutrophils (%) (Auto) 58.3, Lymphocytes (% ) (Auto) 23.7, Monocytes (%) (Auto) 8.2, Eosinophils (%) (Auto) 8.8H, Basophils (%) (Auto) 1.1, Sodium Level 143, Potassium Level 4.5, Chloride Level 108H, Carbon Dioxide Level 23, Anion Gap 13, Blood Urea Nitrogen 43H, Creatinine 2.8H , Estimat Glomerular Filtration Rate 22.9, Glucose Level 91, Uric Acid 7.3H, Calcium Level 8.2L, Phosphorus Level 3.9, Magnesium Level 1.8, Total Bilirubin 0.4, Aspartate Amino Transf (AST/SGOT) 30, Alanine Aminotransferase (ALT/SGPT) 25, Alkaline Phosphatase 83, Troponin I 1.231H, C-Reactive Protein, Quantitative 8.2H, Pro-B-Type Natriuretic Peptide [id number], Total Protein 6.5, Albumin 2.5L, Globulin 4.0, Albumin/Globulin Ratio 0.6L Current Medications Medications (Trade) Dose Ordered Sig/Leon Route PRN Reason Start Time Stop Time Status Last Admin Dose Admin Acetaminophen (Tylenol) 500 mg Q4H PRN ORAL Mild Pain/Temp > 100.5 11/01/19 06:15 11/23/19 06:14 Albuterol/ Ipratropium (Albuterol/ Ipratropium) 3 ml Q6HRT HHN 11/01/19 07:00 11/04/19 12:59 11/02/19 07:47 Amlodipine Besylate (Norvasc) 5 mg Q12HR ORAL 11/01/19 09:00 11/24/19 20:59 11/02/19 08:16 Aspirin (Ecotrin) 81 mg DAILY ORAL 11/01/19 09:00 11/24/19 08:59 11/02/19 08:16 Atorvastatin Calcium (Lipitor) 80 mg BEDTIME ORAL 11/01/19 21:00 11/23/19 20:59 11/01/19 21:14 Ceftriaxone Sodium 1 gm/ Dextrose 55 ml @ 110 mls/hr Q24H IVPB 11/01/19 16:00 11/05/19 15:59 11/01/19 16:27 Clopidogrel Bisulfate (Plavix) 75 mg DAILY ORAL 11/01/19 09:00 11/24/19 08:59 11/02/19 08:17 Dextrose (Dextrose 50%) 25 ml Q30M PRN IV Hypoglycemia 11/01/19 06:15 11/23/19 05:14 Dextrose (Dextrose 50%) 50 ml Q30M PRN IV Hypoglycemia 11/01/19 06:15 11/23/19 05:14 Docusate Sodium (Colace) 100 mg TWICE A DAY ORAL 11/01/19 09:00 11/23/19 17:59 11/02/19 08:16 Finasteride (Proscar) 5 mg DAILY ORAL 11/01/19 09:00 11/24/19 08:59 11/02/19 08:16 Furosemide (Lasix) 40 mg DAILY ORAL 11/01/19 09:00 11/24/19 09:59 11/02/19 08:17 Levothyroxine Sodium (Synthroid) 150 mcg DAILY@0630 ORAL 11/01/19 06:30 11/23/19 06:29 11/02/19 06:20 Metoprolol Tartrate (Lopressor) 25 mg Q12HR ORAL 11/01/19 09:00 11/23/19 10:59 11/02/19 08:16 Mirtazapine (Remeron) 7.5 mg BEDTIME ORAL 11/01/19 21:00 11/27/19 20:59 11/01/19 21:14 Pantoprazole (Protonix) 40 mg DAILY ORAL 11/02/19 09:00 12/02/19 08:59 11/02/19 08:16 Tamsulosin HCl (Flomax) 0.4 mg BID ORAL 2/15/20 09:00 11/23/19 20:59 11/02/19 08:17 Janes Cox MD Nov 02, 2019 13:12
--- NOTE | 2019-11-02 13:33 | Infectious Diseases Prog Note ---
Assessment/Plan Assessment/Plan IMPRESSION: Fever, resolved Urinary tract infection with Proteus Diabetes mellitus with hyperglycemia, anemia, acute renal failure, chronic kidney disease, BPH, hypertension, hypothyroidism. VRE carrier NSTEMI RECOMMENDATION: Continue ceftriaxone until tomorrow Subjective ROS Limited/Unobtainable: No Respiratory: Reports: dry cough Cardiovascular: Reports: no symptoms Gastrointestinal/Abdominal: Reports: no symptoms Genitourinary: Reports: no symptoms Allergies: Coded Allergies: No Known Allergies (Unverified , 10/07/17) Objective Vital Signs Last 24 Hour Vital Signs Date Time Temp Pulse Resp B/P (MAP) Pulse Ox O2 Delivery O2 Flow Rate FiO2 11/02/19 12:00 98.2 73 20 144/80 (101) 99 11/02/19 08:17 Nasal Cannula 4.0 Nasal Cannula 4.0 11/02/19 08:16 67 150/73 11/02/19 08:16 67 150/73 11/02/19 08:00 98.0 67 19 150/73 (98) 100 11/02/19 07:48 70 18 99 64 20 97 11/02/19 07:48 97 Room Air 21 11/02/19 04:00 98.4 69 18 121/66 (84) 93 11/02/19 01:16 73 18 99 Nasal Cannula 4.0 36 74 20 96 11/02/19 00:00 99.3 79 18 144/64 (90) 94 11/01/19 21:14 64 137/68 11/01/19 21:14 64 137/68 11/01/19 20:00 99.1 64 20 137/68 (91) 95 11/01/19 19:54 96 Nasal Cannula 4.0 36 11/01/19 19:54 71 18 99 Nasal Cannula 4.0 36 72 20 96 11/01/19 16:00 98.3 70 18 134/70 (91) 96 11/01/19 14:20 70 18 99 Nasal Cannula 4.0 36 72 18 98 Height (Feet): 5 Height (Inches): 10.00 Weight (Pounds): 218 General Appearance: no acute distress HEENT: mucous membranes moist Respiratory/Chest: lungs clear Cardiovascular: normal rate Abdomen: soft, non tender Extremities: no edema Neurologic/Psychiatric: alert, oriented x 3, responsive Laboratory Tests Test 11/02/19 07:00 White Blood Count 7.2 K/UL (4.8-10.8) Red Blood Count 2.70 M/UL (4.70-6.10) L Hemoglobin 8.5 G/DL (14.2-18.0) L Hematocrit 25.8 % (42.0-52.0) L Mean Corpuscular Volume 95 FL (80-99) Mean Corpuscular Hemoglobin 31.7 PG (27.0-31.0) H Mean Corpuscular Hemoglobin Concent 33.2 G/DL (32.0-36.0) Red Cell Distribution Width 12.8 % (11.6-14.8) Platelet Count 263 K/UL (150-450) Mean Platelet Volume 6.5 FL (6.5-10.1) Neutrophils (%) (Auto) 58.3 % (45.0-75.0) Lymphocytes (%) (Auto) 23.7 % (20.0-45.0) Monocytes (%) (Auto) 8.2 % (1.0-10.0) Eosinophils (%) (Auto) 8.8 % (0.0-3.0) H Basophils (%) (Auto) 1.1 % (0.0-2.0) Sodium Level 143 MMOL/L (136-145) Potassium Level 4.5 MMOL/L (3.5-5.1) Chloride Level 108 MMOL/L (98-107) H Carbon Dioxide Level 23 MMOL/L (21-32) Anion Gap 13 mmol/L (5-15) Blood Urea Nitrogen 43 mg/dL (7-18) H Creatinine 2.8 MG/DL (0.55-1.30) H Estimat Glomerular Filtration Rate 22.9 mL/min (>60) Glucose Level 91 MG/DL (74-106) Uric Acid 7.3 MG/DL (2.6-7.2) H Calcium Level 8.2 MG/DL (8.5-10.1) L Phosphorus Level 3.9 MG/DL (2.5-4.9) Magnesium Level 1.8 MG/DL (1.8-2.4) Total Bilirubin 0.4 MG/DL (0.2-1.0) Aspartate Amino Transf (AST/SGOT) 30 U/L (15-37) Alanine Aminotransferase (ALT/SGPT) 25 U/L (12-78) Alkaline Phosphatase 83 U/L (46-116) Troponin I 1.231 ng/mL (0.000-0.056) C-Reactive Protein, Quantitative 8.2 mg/dL (0.00-0.90) H Pro-B-Type Natriuretic Peptide 24924 pg/mL (0-125) H Total Protein 6.5 G/DL (6.4-8.2) Albumin 2.5 G/DL (3.4-5.0) L Globulin 4.0 g/dL Albumin/Globulin Ratio 0.6 (1.0-2.7) L Current Medications Medications (Trade) Dose Ordered Sig/Leon Route PRN Reason Start Time Stop Time Status Last Admin Dose Admin Acetaminophen (Tylenol) 500 mg Q4H PRN ORAL Mild Pain/Temp > 100.5 11/01/19 06:15 11/23/19 06:14 Albuterol/ Ipratropium (Albuterol/ Ipratropium) 3 ml Q6HRT HHN 11/01/19 07:00 11/04/19 12:59 11/02/19 07:47 Amlodipine Besylate (Norvasc) 5 mg Q12HR ORAL 11/01/19 09:00 11/24/19 20:59 11/02/19 08:16 Aspirin (Ecotrin) 81 mg DAILY ORAL 11/01/19 09:00 11/24/19 08:59 11/02/19 08:16 Atorvastatin Calcium (Lipitor) 80 mg BEDTIME ORAL 11/01/19 21:00 11/23/19 20:59 11/01/19 21:14 Ceftriaxone Sodium 1 gm/ Dextrose 55 ml @ 110 mls/hr Q24H IVPB 11/01/19 16:00 11/05/19 15:59 11/01/19 16:27 Clopidogrel Bisulfate (Plavix) 75 mg DAILY ORAL 11/01/19 09:00 11/24/19 08:59 11/02/19 08:17 Dextrose (Dextrose 50%) 25 ml Q30M PRN IV Hypoglycemia 11/01/19 06:15 11/23/19 05:14 Dextrose (Dextrose 50%) 50 ml Q30M PRN IV Hypoglycemia 11/01/19 06:15 11/23/19 05:14 Docusate Sodium (Colace) 100 mg TWICE A DAY ORAL 11/01/19 09:00 11/23/19 17:59 11/02/19 08:16 Finasteride (Proscar) 5 mg DAILY ORAL 11/01/19 09:00 11/24/19 08:59 11/02/19 08:16 Furosemide (Lasix) 40 mg DAILY ORAL 11/01/19 09:00 11/24/19 09:59 11/02/19 08:17 Levothyroxine Sodium (Synthroid) 150 mcg DAILY@0630 ORAL 11/01/19 06:30 11/23/19 06:29 11/02/19 06:20 Metoprolol Tartrate (Lopressor) 25 mg Q12HR ORAL 11/01/19 09:00 11/23/19 10:59 11/02/19 08:16 Mirtazapine (Remeron) 7.5 mg BEDTIME ORAL 11/01/19 21:00 11/27/19 20:59 11/01/19 21:14 Pantoprazole (Protonix) 40 mg DAILY ORAL 11/02/19 09:00 12/02/19 08:59 11/02/19 08:16 Tamsulosin HCl (Flomax) 0.4 mg BID ORAL 11/01/19 09:00 11/23/19 20:59 11/02/19 08:17 Troy Yeboah MD Nov 02, 2019 13:33
--- NOTE | 2019-11-02 14:35 | NUR ---
NURSE NOTES: Left message on voicemail of Dr. Oni Schilling notifying that patient is confused, saying his family was outside, and he has a bloody nose. Family is at hospital, was not in the room at the time. Patient is now calm. Bleeding has stopped. Mother and older brother state, "This [facility], he gets a bloody nose."
[2019-11-02 16:00] VITALS: BP 147/79
[2019-11-02] MEDS: cefTRIAXone 1 GM in D5W 55 ML IVPB SCH (16:34)
--- NOTE | 2019-11-02 19:26 | NUR ---
HAND-OFF: Report given to LOU Booker. Patient sitting up in bed, awake and alert to name, bed in lowest position, call light within reach, oxygen at 4 liters nasal cannula humidified at 30 percent, no c/o pain, no SOB, in no apparent distress, Kamara catheter in place.
--- NOTE | 2019-11-02 19:41 | NUR ---
NURSE NOTES: Patient is in bed and on nasal cannula with humidifier; no signs of distress or SOB. IV intact and patent. Kamara in place and draining to gravity. Bed locked in lowest position. Bed alarm on. Call light within reach. Will continue to monitor.
[2019-11-02 20:00] VITALS: BP 151/73
[2019-11-02] MEDS: Atorvastatin 80mg tab ORAL SCH (20:22)
--- NOTE | 2019-11-02 22:14 | General Progress Note ---
Assessment/Plan Problem List: (1) Sepsis ICD Codes: A41.9 - Sepsis, unspecified organism SNOMED: 69317931 (2) Hypoglycemia ICD Codes: E16.2 - Hypoglycemia, unspecified SNOMED: 905864280 (3) Elevated troponin ICD Codes: R79.89 - Other specified abnormal findings of blood chemistry SNOMED: 118054727, 092161009, 279669287 (4) Renal failure (ARF), acute on chronic ICD Codes: N17.9 - Acute kidney failure, unspecified; N18.9 - Chronic kidney disease, unspecified SNOMED: 110797758 Qualifiers: Qualified Codes: N17.9 - Acute kidney failure, unspecified; N18.3 - Chronic kidney disease, stage 3 (moderate) (5) Hypothyroid ICD Codes: E03.9 - Hypothyroidism, unspecified SNOMED: 24998761 (6) HTN (hypertension) ICD Codes: I10 - Essential (primary) hypertension SNOMED: 95636678 (7) Diabetic nephropathy ICD Codes: E11.21 - Type 2 diabetes mellitus with diabetic nephropathy SNOMED: 191761991 (8) Anemia in chronic kidney disease (CKD) ICD Codes: N18.9 - Chronic kidney disease, unspecified; D63.1 - Anemia in chronic kidney disease SNOMED: 218092201 Assessment/Plan: lethargic sepsis abx per id afebrile check cultures consulted dr jacobson for fever /sepsis mentation not improving ftt not eating confused still Subjective ROS Limited/Unobtainable: Yes Allergies: Coded Allergies: No Known Allergies (Unverified , 10/07/17) Objective Last 24 Hour Vital Signs Date Time Temp Pulse Resp B/P (MAP) Pulse Ox O2 Delivery O2 Flow Rate FiO2 11/02/19 20:22 68 151/73 11/02/19 20:22 68 151/73 11/02/19 20:00 98.8 68 20 151/73 (99) 96 11/02/19 19:46 69 20 99 Nasal Cannula 4.0 36 67 18 99 11/02/19 19:46 99 Nasal Cannula 2.0 28 11/02/19 16:00 98.4 87 20 147/79 (101) 98 11/02/19 12:00 98.2 73 20 144/80 (101) 99 11/02/19 08:17 Nasal Cannula 4.0 Nasal Cannula 4.0 2/16/20 08:16 67 150/73 11/02/19 08:16 67 150/73 11/02/19 08:00 98.0 67 19 150/73 (98) 100 11/02/19 07:48 70 18 99 64 20 97 11/02/19 07:48 97 Room Air 21 11/02/19 04:00 98.4 69 18 121/66 (84) 93 11/02/19 01:16 73 18 99 Nasal Cannula 4.0 36 74 20 96 11/02/19 00:00 99.3 79 18 144/64 (90) 94 Intake and Output 11/01/19 11/02/19 19:00 07:00 Intake Total 1100 ml 120 ml Output Total 1200 ml 1000 ml Balance -100 ml -880 ml Intake Oral 1100 ml 120 ml Output Urine Total 1200 ml 1000 ml # Voids 1 Laboratory Tests 11/02/19 07:00: White Blood Count 7.2, Red Blood Count 2.70L, Hemoglobin 8.5L, Hematocrit 25.8L , Mean Corpuscular Volume 95, Mean Corpuscular Hemoglobin 31.7H, Mean Corpuscular Hemoglobin Concent 33.2, Red Cell Distribution Width 12.8, Platelet Count 263, Mean Platelet Volume 6.5, Neutrophils (%) (Auto) 58.3, Lymphocytes (% ) (Auto) 23.7, Monocytes (%) (Auto) 8.2, Eosinophils (%) (Auto) 8.8H, Basophils (%) (Auto) 1.1, Sodium Level 143, Potassium Level 4.5, Chloride Level 108H, Carbon Dioxide Level 23, Anion Gap 13, Blood Urea Nitrogen 43H, Creatinine 2.8H , Estimat Glomerular Filtration Rate 22.9, Glucose Level 91, Uric Acid 7.3H, Calcium Level 8.2L, Phosphorus Level 3.9, Magnesium Level 1.8, Total Bilirubin 0.4, Aspartate Amino Transf (AST/SGOT) 30, Alanine Aminotransferase (ALT/SGPT) 25, Alkaline Phosphatase 83, Troponin I 1.231H, C-Reactive Protein, Quantitative 8.2H, Pro-B-Type Natriuretic Peptide 49562K, Total Protein 6.5, Albumin 2.5L, Globulin 4.0, Albumin/Globulin Ratio 0.6L Height (Feet): 5 Height (Inches): 10.00 Weight (Pounds): 218 General Appearance: confused Cardiovascular: regular rhythm Respiratory/Chest: accessory muscle use Oni Schilling MD Nov 02, 2019 22:14
[2019-11-03] VITALS: BP 146/72
[2019-11-03] MEDS: Albuterol/Ipratropium 3ml neb HHN SCH ×4 (00:26→19:27)
[2019-11-03 04:00] VITALS: BP 149/76
--- NOTE | 2019-11-03 06:29 | NUR ---
NURSE NOTES: Patient agitated and anxious this morning. Trying to get out of bed stating he needs to "find his father". Tried to redirect patient and deescalate but patient remains agitated. Notified Dr. Cooper. Awaiting orders.
--- NOTE | 2019-11-03 07:20 | NUR ---
HAND-OFF: Report given to LOU Olivas.
[2019-11-03 08:00] VITALS: BP 166/78
--- NOTE | 2019-11-03 08:10 | General Progress Note ---
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 D/w Dr. Hanson and he concurred. Subjective Date patient seen: Nov 03, 2019 Time patient seen: 07:00 - am Allergies: Coded Allergies: No Known Allergies (Unverified , 10/07/17) Subjective REVIEW OF SYSTEMS: Denies rash, fever, chills, sweating, dizziness, drowsiness, blurred vision, sore throat, or change in weight. No shortness of breath or chest pain. No nausea, vomiting, diarrhea, or blood in the stool or urine. No bowel or bladder incontinence. No dysuria. SUBJECTIVE: Patient is in bed resting. No pain at this time. Showing no signs of distress. Objective Last 24 Hour Vital Signs Date Time Temp Pulse Resp B/P (MAP) Pulse Ox O2 Delivery O2 Flow Rate FiO2 11/03/19 06:38 96 Nasal Cannula 2.0 28 11/03/19 04:00 98.8 70 18 149/76 (100) 95 11/03/19 00:26 70 18 99 Room Air 21 68 16 96 11/03/19 00:00 98.3 66 20 146/72 (96) 95 11/02/19 20:22 68 151/73 11/02/19 20:22 68 151/73 11/02/19 20:00 98.8 68 20 151/73 (99) 96 11/02/19 19:46 69 20 99 Nasal Cannula 4.0 36 67 18 99 11/02/19 19:46 99 Nasal Cannula 2.0 28 11/02/19 16:00 98.4 87 20 147/79 (101) 98 11/02/19 12:00 98.2 73 20 144/80 (101) 99 11/02/19 08:17 Nasal Cannula 4.0 Nasal Cannula 4.0 11/02/19 08:16 67 150/73 11/02/19 08:16 67 150/73 Intake and Output 11/02/19 11/03/19 19:00 07:00 Intake Total 1055 ml Output Total 1400 ml 1800 ml Balance -345 ml -1800 ml Intake Oral 1000 ml IV Total 55 ml Output Urine Total 1400 ml 1800 ml # Voids 1 Height (Feet): 5 Height (Inches): 10.00 Weight (Pounds): 218 Objective GENERAL: Alert, awake, and oriented. LUNGS: Decreased breath sounds bilaterally. HEART: S1 and S2 regular. ABDOMEN: Soft, nontender. EXTREMITIES: No cyanosis. No clubbing. NEURO: No changes. Warren Torres Nov 03, 2019 08:10
[2019-11-03] MEDS ORDERED: LORazepam 1mg tab ORAL PRN (08:30)
[2019-11-03] MEDS: Haloperidol 5mg/ml Inj IM PRN (09:17)
[2019-11-03] MEDS: Tamsulosin 0.4mg cap ORAL SCH ×2 (09:20→17:24)
[2019-11-03] MEDS: Furosemide 40mg tab ORAL SCH (09:20)
[2019-11-03] MEDS: Docusate 100mg cap ORAL SCH ×3 (09:20→17:28)
[2019-11-03] MEDS: Aspirin EC 81mg tab ORAL SCH (09:20)
--- NOTE | 2019-11-03 10:00 | NUR ---
NURSE NOTES: PT AXOX1, RESTLESS IN BED. PT STATES HE NEEDS HELP TO GO HOME. RN ATTEMPTED TO RE-ORIENT PT AND EXPLAIN PLAN OF CARE. PT UNABLE TO VERBALIZE UNDERSTANDING. PT STATES HE CALLED HIS PARENTS TO PICK HIM UP. RN RECEIVED ORDERS FROM DR LEMONS FOR ATIVAN 1MG PO Q4H PRN ANXIETY AND HALDOL 5MG IM Q6H PRN RESTLESSNESS. RN ADMINISTERED PRN HALDOL AND ATIVAN ORDERED. PT IN HIGH POSEY'S POSITION WITH HOB ELEVATED. BED IN LOWEST POSITION WITH BED ALARM ON ZONE 2. FALL RISK BRACELET PLACED ON PT'S WRIST. WILL CONTINUE TO MONITOR.
--- NOTE | 2019-11-03 10:47 | Pulmonology Progress Note ---
Assessment/Plan Assessment/Plan IMPRESSION: 1. Mild pulmonary vascular congestion. 2. Hypertension. 3. Diabetes mellitus. 4. Previous CVA. 5. Hypoglycemia. 6. Hypoxemia. 7. Epistaxis 8. Anorexia DISCUSSION: Continue low flow O2 Continue diuresis OK to dc back to snf. Janes Cox M.D. Subjective Interval Events: None new Constitutional: Reports: no symptoms HEENT: Repors: no symptoms Respiratory: Reports: no symptoms Cardiovascular: Reports: no symptoms Gastrointestinal/Abdominal: Reports: no symptoms Allergies: Coded Allergies: No Known Allergies (Unverified , 10/07/17) Objective Last 24 Hour Vital Signs Date Time Temp Pulse Resp B/P (MAP) Pulse Ox O2 Delivery O2 Flow Rate FiO2 11/03/19 09:21 75 166/78 11/03/19 09:21 75 166/78 11/03/19 08:00 97.7 75 20 166/78 (107) 95 11/03/19 06:38 96 Nasal Cannula 2.0 28 11/03/19 04:00 98.8 70 18 149/76 (100) 95 11/03/19 00:26 70 18 99 Room Air 21 68 16 96 11/03/19 00:00 98.3 66 20 146/72 (96) 95 11/02/19 20:22 68 151/73 11/02/19 20:22 68 151/73 11/02/19 20:00 98.8 68 20 151/73 (99) 96 11/02/19 19:46 69 20 99 Nasal Cannula 4.0 36 67 18 99 11/02/19 19:46 99 Nasal Cannula 2.0 28 11/02/19 16:00 98.4 87 20 147/79 (101) 98 11/02/19 12:00 98.2 73 20 144/80 (101) 99 Intake and Output 11/02/19 11/03/19 19:00 07:00 Intake Total 1055 ml Output Total 1400 ml 1800 ml Balance -345 ml -1800 ml Intake Oral 1000 ml IV Total 55 ml Output Urine Total 1400 ml 1800 ml # Voids 1 General Appearance: no acute distress HEENT: normocephalic Respiratory/Chest: chest wall non-tender, lungs clear Cardiovascular: normal peripheral pulses, normal rate Abdomen: normal bowel sounds Current Medications Medications (Trade) Dose Ordered Sig/Leon Route PRN Reason Start Time Stop Time Status Last Admin Dose Admin Acetaminophen (Tylenol) 500 mg Q4H PRN ORAL Mild Pain/Temp > 100.5 11/01/19 06:15 11/23/19 06:14 Albuterol/ Ipratropium (Albuterol/ Ipratropium) 3 ml Q6HRT HHN 11/01/19 07:00 11/04/19 12:59 11/03/19 00:26 Amlodipine Besylate (Norvasc) 5 mg Q12HR ORAL 11/01/19 09:00 11/24/19 20:59 11/03/19 09:21 Aspirin (Ecotrin) 81 mg DAILY ORAL 11/01/19 09:00 11/24/19 08:59 11/03/19 09:20 Atorvastatin Calcium (Lipitor) 80 mg BEDTIME ORAL 11/01/19 21:00 11/23/19 20:59 11/02/19 20:22 Ceftriaxone Sodium 1 gm/ Dextrose 55 ml @ 110 mls/hr Q24H IVPB 11/01/19 16:00 11/03/19 23:59 11/02/19 16:34 Clopidogrel Bisulfate (Plavix) 75 mg DAILY ORAL 11/01/19 09:00 11/24/19 08:59 11/03/19 09:20 Dextrose (Dextrose 50%) 25 ml Q30M PRN IV Hypoglycemia 11/01/19 06:15 11/23/19 05:14 Dextrose (Dextrose 50%) 50 ml Q30M PRN IV Hypoglycemia 11/01/19 06:15 11/23/19 05:14 Docusate Sodium (Colace) 100 mg TWICE A DAY ORAL 11/01/19 09:00 11/23/19 17:59 11/03/19 09:20 Finasteride (Proscar) 5 mg DAILY ORAL 11/01/19 09:00 11/24/19 08:59 11/03/19 09:20 Furosemide (Lasix) 40 mg DAILY ORAL 11/01/19 09:00 11/24/19 09:59 11/03/19 09:20 Haloperidol Lactate (Haldol) 5 mg Q6H PRN IM Agitation 11/03/19 08:30 12/03/19 08:29 11/03/19 09:17 Levothyroxine Sodium (Synthroid) 150 mcg DAILY@0630 ORAL 11/01/19 06:30 11/23/19 06:29 11/03/19 05:51 Lorazepam (Ativan) 1 mg Q4H PRN ORAL For Anxiety 11/03/19 08:30 11/10/19 08:29 11/03/19 09:20 Metoprolol Tartrate (Lopressor) 25 mg Q12HR ORAL 11/01/19 09:00 11/23/19 10:59 11/03/19 09:21 Mirtazapine (Remeron) 7.5 mg BEDTIME ORAL 11/01/19 21:00 11/27/19 20:59 11/02/19 20:22 Pantoprazole (Protonix) 40 mg DAILY ORAL 11/02/19 09:00 12/02/19 08:59 11/03/19 09:21 Tamsulosin HCl (Flomax) 0.4 mg BID ORAL 11/01/19 09:00 11/23/19 20:59 11/03/19 09:20 Janes Cox MD Nov 03, 2019 10:47
--- NOTE | 2019-11-03 10:59 | Nephrology Progress Note ---
Assessment/Plan Problem List: (1) Renal failure (ARF), acute on chronic Assessment: Cr slightly higher (2) Elevated troponin (3) Hypoglycemia (4) Hypothyroid (5) HTN (hypertension) (6) Diabetic nephropathy (7) Anemia in chronic kidney disease (CKD) Assessment Urinary retention Renal failure (ARF), acute on chronic Anemia: s/p GI Bleed on anticoagulation h/o Hypertension Elevated troponin h/o Hypothyroid DM- Hypoglycemia on presentation h/o UTI Plan Reinsert Kamara BP management IV Iron watch HR 2D Echo NOTED Kidney MARCO A NOTED Avoid nephrotoxics antibiotics Per orders / per consultants Subjective ROS Limited/Unobtainable: No Constitutional: Reports: malaise Objective Objective Last 24 Hour Vital Signs Date Time Temp Pulse Resp B/P (MAP) Pulse Ox O2 Delivery O2 Flow Rate FiO2 11/03/19 09:21 75 166/78 11/03/19 09:21 75 166/78 11/03/19 09:00 Nasal Cannula 3.0 11/03/19 08:00 97.7 75 20 166/78 (107) 95 11/03/19 06:38 96 Nasal Cannula 2.0 28 11/03/19 04:00 98.8 70 18 149/76 (100) 95 11/03/19 00:26 70 18 99 Room Air 21 68 16 96 11/03/19 00:00 98.3 66 20 146/72 (96) 95 11/02/19 20:22 68 151/73 11/02/19 20:22 68 151/73 11/02/19 20:00 98.8 68 20 151/73 (99) 96 11/02/19 19:46 69 20 99 Nasal Cannula 4.0 36 67 18 99 11/02/19 19:46 99 Nasal Cannula 2.0 28 11/02/19 16:00 98.4 87 20 147/79 (101) 98 11/02/19 12:00 98.2 73 20 144/80 (101) 99 Intake and Output 11/02/19 11/03/19 19:00 07:00 Intake Total 1055 ml Output Total 1400 ml 1800 ml Balance -345 ml -1800 ml Intake Oral 1000 ml IV Total 55 ml Output Urine Total 1400 ml 1800 ml # Voids 1 Height (Feet): 5 Height (Inches): 10.00 Weight (Pounds): 218 General Appearance: no apparent distress Cardiovascular: normal rate Respiratory/Chest: decreased breath sounds Abdomen: soft Objective no change Rafa Farr MD Nov 03, 2019 10:59
[2019-11-03] MEDS ORDERED: DiphenhydrAMINE 25mg Tab ORAL ONE (11:00)
--- NOTE | 2019-11-03 11:16 | Infectious Diseases Prog Note ---
Assessment/Plan Assessment/Plan IMPRESSION: Fever, resolved Urinary tract infection with Proteus Diabetes mellitus with hyperglycemia, anemia, acute renal failure, chronic kidney disease, BPH, hypertension, hypothyroidism. VRE carrier NSTEMI Encephalopathy RECOMMENDATION: Continue ceftriaxone until tonight Subjective ROS Limited/Unobtainable: Yes Neurologic: Reports: confusion, other - received Haldol Allergies: Coded Allergies: No Known Allergies (Unverified , 10/07/17) Objective Vital Signs Last 24 Hour Vital Signs Date Time Temp Pulse Resp B/P (MAP) Pulse Ox O2 Delivery O2 Flow Rate FiO2 11/03/19 09:21 75 166/78 11/03/19 09:21 75 166/78 11/03/19 09:00 Nasal Cannula 3.0 11/03/19 08:00 97.7 75 20 166/78 (107) 95 11/03/19 06:38 96 Nasal Cannula 2.0 28 11/03/19 04:00 98.8 70 18 149/76 (100) 95 11/03/19 00:26 70 18 99 Room Air 21 68 16 96 11/03/19 00:00 98.3 66 20 146/72 (96) 95 11/02/19 20:22 68 151/73 11/02/19 20:22 68 151/73 11/02/19 20:00 98.8 68 20 151/73 (99) 96 11/02/19 19:46 69 20 99 Nasal Cannula 4.0 36 67 18 99 11/02/19 19:46 99 Nasal Cannula 2.0 28 11/02/19 16:00 98.4 87 20 147/79 (101) 98 11/02/19 12:00 98.2 73 20 144/80 (101) 99 Height (Feet): 5 Height (Inches): 10.00 Weight (Pounds): 218 General Appearance: no acute distress HEENT: mucous membranes moist Respiratory/Chest: lungs clear Cardiovascular: normal rate Abdomen: soft, non tender Extremities: no edema Neurologic/Psychiatric: disoriented, other - left hemiplegia more in arm Current Medications Medications (Trade) Dose Ordered Sig/Leon Route PRN Reason Start Time Stop Time Status Last Admin Dose Admin Acetaminophen (Tylenol) 500 mg Q4H PRN ORAL Mild Pain/Temp > 100.5 11/01/19 06:15 11/23/19 06:14 Albuterol/ Ipratropium (Albuterol/ Ipratropium) 3 ml Q6HRT HHN 11/01/19 07:00 11/04/19 12:59 11/03/19 00:26 Amlodipine Besylate (Norvasc) 5 mg Q12HR ORAL 11/01/19 09:00 11/24/19 20:59 11/03/19 09:21 Aspirin (Ecotrin) 81 mg DAILY ORAL 11/01/19 09:00 11/24/19 08:59 11/03/19 09:20 Atorvastatin Calcium (Lipitor) 80 mg BEDTIME ORAL 11/01/19 21:00 11/23/19 20:59 11/02/19 20:22 Ceftriaxone Sodium 1 gm/ Dextrose 55 ml @ 110 mls/hr Q24H IVPB 11/01/19 16:00 11/03/19 23:59 11/02/19 16:34 Clopidogrel Bisulfate (Plavix) 75 mg DAILY ORAL 11/01/19 09:00 11/24/19 08:59 11/03/19 09:20 Dextrose (Dextrose 50%) 25 ml Q30M PRN IV Hypoglycemia 11/01/19 06:15 11/23/19 05:14 Dextrose (Dextrose 50%) 50 ml Q30M PRN IV Hypoglycemia 11/01/19 06:15 11/23/19 05:14 Docusate Sodium (Colace) 100 mg TWICE A DAY ORAL 11/01/19 09:00 11/23/19 17:59 11/03/19 09:20 Finasteride (Proscar) 5 mg DAILY ORAL 11/01/19 09:00 11/24/19 08:59 11/03/19 09:20 Furosemide (Lasix) 40 mg DAILY ORAL 11/01/19 09:00 11/24/19 09:59 11/03/19 09:20 Haloperidol Lactate (Haldol) 5 mg Q6H PRN IM Agitation 11/03/19 08:30 12/03/19 08:29 11/03/19 09:17 Levothyroxine Sodium (Synthroid) 150 mcg DAILY@0630 ORAL 11/01/19 06:30 11/23/19 06:29 11/03/19 05:51 Lorazepam (Ativan) 1 mg Q4H PRN ORAL For Anxiety 11/03/19 08:30 11/10/19 08:29 11/03/19 09:20 Metoprolol Tartrate (Lopressor) 25 mg Q12HR ORAL 11/01/19 09:00 11/23/19 10:59 11/03/19 09:21 Mirtazapine (Remeron) 15 mg BEDTIME ORAL 11/03/19 21:00 11/27/19 20:59 Pantoprazole (Protonix) 40 mg DAILY ORAL 11/02/19 09:00 12/02/19 08:59 11/03/19 09:21 Tamsulosin HCl (Flomax) 0.4 mg BID ORAL 11/01/19 09:00 11/23/19 20:59 11/03/19 09:20 Troy Yeboah MD Nov 03, 2019 11:16
--- NOTE | 2019-11-03 11:27 | Hematology/Onc Progress Note ---
Assessment/Plan Assessment/Plan Assessment and Recs: # Anemia due to underlying GI bleed -- patient presents with hematemesis before and now with barb --> as per GI eval, may need endoscopy --> has been started on ppi --> cea has been ordered --> Hgb goal >7. Transfuse prn. --> Will sign consent if necessary --> Epogen not started. IRON IV x 5 days completed --> Consider octreotide gtt as per gi eval --> Medications have been reviewed --> Hgb 8.8 -->8.6-->8.7-->8.9-->8.5 # Coagulation defect/Bleeding, multifactorial usually related to poor PO intake versus medications, in this case related to coumadin --> administer Vitamin K if patient is bleeding or FFP if the INR is >10 --> hold off on ffp unless active procedure/bleeding, first begin with vit K 10 --> mixing study as needed --> HAVE STOPPED COUMADIN --> per cards, hold off at this time, is aware of afib hx # Anemia due to folic acid deficiency/iron deficiency as well --> prior folic acid<5 --> recheck levels # Elevated troponin, rising, ?nstemi --> aware --> anticoag as per his recs # Renal failure (ARF), acute on chronic --> per renal Dr. Farr # UTI --> abx as needed --> abx: ceftriaxone # Dvt ppx on scds now The timing of this note does not necessarily reflect the time of the patient was seen. Greatly appreciate consultation. Subjective HEENT: Denies: no symptoms, eye pain, blurred vision, tearing, double vision, ear pain, ear discharge, nose pain, nose congestion, throat pain, throat swelling, mouth pain, mouth swelling, other Cardiovascular: Denies: no symptoms, chest pain, edema, irregular heart rate, lightheadedness, palpitations, syncope, other Respiratory: Denies: no symptoms, cough, shortness of breath, SOB with excertion, SOB at rest, sputum, wheezing, other Gastrointestinal/Abdominal: Denies: no symptoms, abdomen distended, abdominal pain, black stools, tarry stools, blood in stool, constipated, diarrhea, difficulty swallowing, nausea, poor appetite, poor fluid intake, rectal bleeding , vomiting, other Neurologic/Psychiatric: Denies: no symptoms, anxiety, depressed, emotional problems, headache, numbness, paresthesia, pre-existing deficit, seizure, tingling, tremors, weakness, other Endocrine: Denies: no symptoms, excessive sweating, flushing, intolerance to cold, intolerance to heat, increased hunger, increased thirst, increased urine, unexplained weight gain, unexplained weight loss, other Hematologic/Lymphatic: Denies: no symptoms, anemia, easy bleeding, easy bruising, adenopathy, other Allergies: Coded Allergies: No Known Allergies (Unverified , 10/07/17) Subjective 10/27: awake, venous duplex negative, iv iron, nose bleed 10/28: is awake, alert on 2l flow, no bleeding, coags noted 10/29: no major changes, seen by pulm, coag midly elevated, hgb in the 8s 10/30: no events, no bleeding or chills, no major changes, hgb 8.7 10/31: to be transferred to med surg, ct head negative, h/h stable, on ceftriaxone 11/02: awake and alert, no acute events, labs reviewed, nc 11/03: labs still pending from am, remains agitated and anxious, no bleedng, on ctx Objective Objective Current Medications Medications (Trade) Dose Ordered Sig/Leon Route PRN Reason Start Time Stop Time Status Last Admin Dose Admin Acetaminophen (Tylenol) 500 mg Q4H PRN ORAL Mild Pain/Temp > 100.5 11/01/19 06:15 11/23/19 06:14 Albuterol/ Ipratropium (Albuterol/ Ipratropium) 3 ml Q6HRT HHN 11/01/19 07:00 11/04/19 12:59 11/03/19 00:26 Amlodipine Besylate (Norvasc) 5 mg Q12HR ORAL 11/01/19 09:00 11/24/19 20:59 11/03/19 09:21 Aspirin (Ecotrin) 81 mg DAILY ORAL 11/01/19 09:00 11/24/19 08:59 11/03/19 09:20 Atorvastatin Calcium (Lipitor) 80 mg BEDTIME ORAL 11/01/19 21:00 11/23/19 20:59 11/02/19 20:22 Ceftriaxone Sodium 1 gm/ Dextrose 55 ml @ 110 mls/hr Q24H IVPB 11/01/19 16:00 11/03/19 23:59 11/02/19 16:34 Clopidogrel Bisulfate (Plavix) 75 mg DAILY ORAL 11/01/19 09:00 11/24/19 08:59 11/03/19 09:20 Dextrose (Dextrose 50%) 25 ml Q30M PRN IV Hypoglycemia 11/01/19 06:15 11/23/19 05:14 Dextrose (Dextrose 50%) 50 ml Q30M PRN IV Hypoglycemia 11/01/19 06:15 11/23/19 05:14 Docusate Sodium (Colace) 100 mg TWICE A DAY ORAL 11/01/19 09:00 11/23/19 17:59 11/03/19 09:20 Finasteride (Proscar) 5 mg DAILY ORAL 11/01/19 09:00 11/24/19 08:59 11/03/19 09:20 Furosemide (Lasix) 40 mg DAILY ORAL 11/01/19 09:00 11/24/19 09:59 11/03/19 09:20 Haloperidol Lactate (Haldol) 5 mg Q6H PRN IM Agitation 11/03/19 08:30 12/03/19 08:29 11/03/19 09:17 Levothyroxine Sodium (Synthroid) 150 mcg DAILY@0630 ORAL 11/01/19 06:30 11/23/19 06:29 11/03/19 05:51 Lorazepam (Ativan) 1 mg Q4H PRN ORAL For Anxiety 11/03/19 08:30 11/10/19 08:29 11/03/19 09:20 Metoprolol Tartrate (Lopressor) 25 mg Q12HR ORAL 11/01/19 09:00 11/23/19 10:59 11/03/19 09:21 Mirtazapine (Remeron) 15 mg BEDTIME ORAL 11/03/19 21:00 11/27/19 20:59 Pantoprazole (Protonix) 40 mg DAILY ORAL 11/02/19 09:00 12/02/19 08:59 11/03/19 09:21 Tamsulosin HCl (Flomax) 0.4 mg BID ORAL 11/01/19 09:00 11/23/19 20:59 11/03/19 09:20 Last 24 Hour Vital Signs Date Time Temp Pulse Resp B/P (MAP) Pulse Ox O2 Delivery O2 Flow Rate FiO2 11/03/19 09:21 75 166/78 11/03/19 09:21 75 166/78 11/03/19 09:00 Nasal Cannula 3.0 11/03/19 08:00 97.7 75 20 166/78 (107) 95 11/03/19 06:38 96 Nasal Cannula 2.0 28 11/03/19 04:00 98.8 70 18 149/76 (100) 95 11/03/19 00:26 70 18 99 Room Air 21 68 16 96 11/03/19 00:00 98.3 66 20 146/72 (96) 95 11/02/19 20:22 68 151/73 11/02/19 20:22 68 151/73 11/02/19 20:00 98.8 68 20 151/73 (99) 96 11/02/19 19:46 69 20 99 Nasal Cannula 4.0 36 67 18 99 11/02/19 19:46 99 Nasal Cannula 2.0 28 11/02/19 16:00 98.4 87 20 147/79 (101) 98 11/02/19 12:00 98.2 73 20 144/80 (101) 99 11/02/19 08:17 Nasal Cannula 4.0 Nasal Cannula 4.0 11/02/19 08:16 67 150/73 11/02/19 08:16 67 150/73 11/02/19 08:00 98.0 67 19 150/73 (98) 100 11/02/19 07:48 70 18 99 64 20 97 11/02/19 07:48 97 Room Air 21 11/02/19 04:00 98.4 69 18 121/66 (84) 93 11/02/19 01:16 73 18 99 Nasal Cannula 4.0 36 74 20 96 11/02/19 00:00 99.3 79 18 144/64 (90) 94 11/01/19 21:14 64 137/68 11/01/19 21:14 64 137/68 11/01/19 20:00 99.1 64 20 137/68 (91) 95 11/01/19 19:54 96 Nasal Cannula 4.0 36 11/01/19 19:54 71 18 99 Nasal Cannula 4.0 36 72 20 96 11/01/19 16:00 98.3 70 18 134/70 (91) 96 11/01/19 14:20 70 18 99 Nasal Cannula 4.0 36 72 18 98 11/01/19 12:00 98.0 66 20 126/73 (90) 95 Intake and Output 11/02/19 11/03/19 19:00 07:00 Intake Total 1055 ml Output Total 1400 ml 1800 ml Balance -345 ml -1800 ml Intake Oral 1000 ml IV Total 55 ml Output Urine Total 1400 ml 1800 ml # Voids 1 Labs Test 11/01/19 09:35 11/02/19 07:00 White Blood Count 7.4 K/UL (4.8-10.8) 7.2 K/UL (4.8-10.8) Red Blood Count 2.77 M/UL (4.70-6.10) 2.70 M/UL (4.70-6.10) Hemoglobin 8.9 G/DL (14.2-18.0) 8.5 G/DL (14.2-18.0) Hematocrit 26.5 % (42.0-52.0) 25.8 % (42.0-52.0) Mean Corpuscular Volume 96 FL (80-99) 95 FL (80-99) Mean Corpuscular Hemoglobin 32.1 PG (27.0-31.0) 31.7 PG (27.0-31.0) Mean Corpuscular Hemoglobin Concent 33.5 G/DL (32.0-36.0) 33.2 G/DL (32.0-36.0) Red Cell Distribution Width 12.9 % (11.6-14.8) 12.8 % (11.6-14.8) Platelet Count 263 K/UL (150-450) 263 K/UL (150-450) Mean Platelet Volume 6.4 FL (6.5-10.1) 6.5 FL (6.5-10.1) Neutrophils (%) (Auto) 60.7 % (45.0-75.0) 58.3 % (45.0-75.0) Lymphocytes (%) (Auto) 24.1 % (20.0-45.0) 23.7 % (20.0-45.0) Monocytes (%) (Auto) 10.4 % (1.0-10.0) 8.2 % (1.0-10.0) Eosinophils (%) (Auto) 4.1 % (0.0-3.0) 8.8 % (0.0-3.0) Basophils (%) (Auto) 0.7 % (0.0-2.0) 1.1 % (0.0-2.0) Sodium Level 143 MMOL/L (136-145) Potassium Level 4.5 MMOL/L (3.5-5.1) Chloride Level 108 MMOL/L (98-107) Carbon Dioxide Level 23 MMOL/L (21-32) Anion Gap 13 mmol/L (5-15) Blood Urea Nitrogen 43 mg/dL (7-18) Creatinine 2.8 MG/DL (0.55-1.30) Estimat Glomerular Filtration Rate 22.9 mL/min (>60) Glucose Level 91 MG/DL (74-106) Uric Acid 7.3 MG/DL (2.6-7.2) Calcium Level 8.2 MG/DL (8.5-10.1) Phosphorus Level 3.9 MG/DL (2.5-4.9) Magnesium Level 1.8 MG/DL (1.8-2.4) Total Bilirubin 0.4 MG/DL (0.2-1.0) Aspartate Amino Transf (AST/SGOT) 30 U/L (15-37) Alanine Aminotransferase (ALT/SGPT) 25 U/L (12-78) Alkaline Phosphatase 83 U/L (46-116) Troponin I 1.231 ng/mL (0.000-0.056) C-Reactive Protein, Quantitative 8.2 mg/dL (0.00-0.90) Pro-B-Type Natriuretic Peptide 19245 pg/mL (0-125) Total Protein 6.5 G/DL (6.4-8.2) Albumin 2.5 G/DL (3.4-5.0) Globulin 4.0 g/dL Albumin/Globulin Ratio 0.6 (1.0-2.7) Height (Feet): 5 Height (Inches): 10.00 Weight (Pounds): 218 Objective PE Vitals: reviewed General Appearance: NAD + chronically ill HEENT: normocephalic, atraumatic ++ biconjunctival hemorrhage-> improved Neck: non-tender, normal alignment Respiratory/Chest: nromal breath sounds bilaterally, NC+ Cardiovascular/Chest: normal peripheral pulses, normal rate Abdomen: normal bowel sounds, soft, nontender Extremities: normal range of motion, Right arm skin tear, left sided weaknness NEURO: ++ left sided weakness Nate Whyte MD Nov 03, 2019 11:26
[2019-11-03 11:53] LABS: BASOPHILS % (AUTO) 0.9 % (0.0-2.0); EOSINOPHILS % (AUTO) 7.6 % (0.0-3.0); HEMATOCRIT 27.4 % (42.0-52.0); HEMOGLOBIN 9.1 G/DL (14.2-18.0); LYMPHOCYTES % (AUTO) 12.1 % (20.0-45.0); MEAN CORPUSCULAR VOLUME 96 FL (80-99); MONOCYTES % (AUTO) 6.3 % (1.0-10.0); NEUTROPHILS % (AUTO) 73.2 % (45.0-75.0); PLATELET COUNT 303 K/UL (150-450); RED BLOOD COUNT 2.86 M/UL (4.70-6.10); RED CELL DISTRIBUTION WIDTH 12.9 % (11.6-14.8); WHITE BLOOD COUNT 9.6 K/UL (4.8-10.8)
[2019-11-03 12:00] VITALS: BP 142/69
--- NOTE | 2019-11-03 14:39 | Cardiac Electrophysiology PN ---
Assessment/Plan Assessment/Plan 1. NSTEMI. Troponin peak 1.8. FU troponins similar range between 0.8 and 1.2 and no CP. ECG no acute ischemia and Echo Nl EF. Due to renal failure. Has [place] in July 2019 with troponin of more than 24. EF of 60%. On Lopressor 25 bid, aspirin, Plavix and Lipitor 80 2. Questionable atrial fibrillation or DVT, currently remain in sinus rhythm. He used to be on anticoagulation. 3. HTN On Lopressor 25 bid, Norvasc 5 bid and Lasix 40 daily 4. History of CVA with left hemiplegia.On Plavix 5. Nose bleed. Stopped. FU Dr. Brown 6. Fever. 7. Hypothyroidism, on Synthroid. 8. Agitation DW RN and Dr Farr Subjective Subjective Was agitated and got sedation. Objective Last 24 Hour Vital Signs Date Time Temp Pulse Resp B/P (MAP) Pulse Ox O2 Delivery O2 Flow Rate FiO2 11/03/19 12:00 97.8 62 20 142/69 (93) 95 11/03/19 09:21 75 166/78 11/03/19 09:21 75 166/78 11/03/19 09:00 Nasal Cannula 3.0 11/03/19 08:00 97.7 75 20 166/78 (107) 95 11/03/19 06:38 96 Nasal Cannula 2.0 28 11/03/19 04:00 98.8 70 18 149/76 (100) 95 11/03/19 00:26 70 18 99 Room Air 21 68 16 96 11/03/19 00:00 98.3 66 20 146/72 (96) 95 11/02/19 20:22 68 151/73 11/02/19 20:22 68 151/73 11/02/19 20:00 98.8 68 20 151/73 (99) 96 11/02/19 19:46 69 20 99 Nasal Cannula 4.0 36 67 18 99 11/02/19 19:46 99 Nasal Cannula 2.0 28 11/02/19 16:00 98.4 87 20 147/79 (101) 98 Intake and Output 11/02/19 11/03/19 19:00 07:00 Intake Total 1055 ml Output Total 1400 ml 1800 ml Balance -345 ml -1800 ml Intake Oral 1000 ml IV Total 55 ml Output Urine Total 1400 ml 1800 ml # Voids 1 Laboratory Tests Test 11/03/19 11:40 White Blood Count 9.6 K/UL (4.8-10.8) Red Blood Count 2.86 M/UL (4.70-6.10) L Hemoglobin 9.1 G/DL (14.2-18.0) L Hematocrit 27.4 % (42.0-52.0) L Mean Corpuscular Volume 96 FL (80-99) Mean Corpuscular Hemoglobin 31.9 PG (27.0-31.0) H Mean Corpuscular Hemoglobin Concent 33.2 G/DL (32.0-36.0) Red Cell Distribution Width 12.9 % (11.6-14.8) Platelet Count 303 K/UL (150-450) Mean Platelet Volume 5.9 FL (6.5-10.1) L Neutrophils (%) (Auto) 73.2 % (45.0-75.0) Lymphocytes (%) (Auto) 12.1 % (20.0-45.0) L Monocytes (%) (Auto) 6.3 % (1.0-10.0) Eosinophils (%) (Auto) 7.6 % (0.0-3.0) H Basophils (%) (Auto) 0.9 % (0.0-2.0) Objective HEAD AND NECK: No JVD. LUNGS: Clear. CARDIOVASCULAR: Regular S1 and S2 with no gallop. ABDOMEN: Soft. EXTREMITIES: Left hemiplegia with contraction of left arm. Castillo Bazan MD Nov 03, 2019 14:39
[2019-11-03 16:00] VITALS: BP 158/74
--- NOTE | 2019-11-03 16:00 | NUR ---
NURSE NOTES: PT WITH SPORADIC NOSEBLEEDS. RN APPLIED GAUZE TO NARES ORDERED. SMALL AMOUNTS OF BLOOD NOTED WITH EACH EPISODE. WILL CONTINUE TO MONITOR.
[2019-11-03] MEDS: cefTRIAXone 1 GM in D5W 55 ML IVPB SCH (16:15)
--- NOTE | 2019-11-03 17:29 | NUR ---
CASE MANAGEMENT:REVIEW 11/01/2019 SI;SEPSIS. ELEVATED TROPONIN. AC/CHR RENAL FAILURE. 99.3 79 20 94% O4L NC H/H 8.9/26.8 IS;ROCEPHIN IV Q24 HRS LASIX PO QD DUO NEB HHN Q6 HRT ASA PO QD MED SURG STATUS DCP;FROM AVENUE
[2019-11-03] MEDS: LORazepam 1mg tab ORAL PRN (17:42)
--- NOTE | 2019-11-03 19:27 | NUR ---
HAND-OFF: Report given to Mary Ann TONEY RN.
[2019-11-03 20:00] VITALS: BP 150/81
--- NOTE | 2019-11-03 20:02 | NUR ---
NURSE NOTES: Received patient in bed, awake, alert, oriented x1, confused at times, IV site is clean dry and intact, patient is a high fall risk related to Hunter Fall Score, patient is located close to nursing station to allow for direct visualization of safety. Oriented patient to call murillo with return demonstration. High fall risk status is communicated to care team so frequent rounding can be accomplished, bed alarm is on with high sensitive setting. Patient will be monitored closely for comfort and safety.
--- NOTE | 2019-11-03 20:48 | General Progress Note ---
Assessment/Plan Assessment/Plan: Assessment - Anorexia, appears to be related to food choices - Azotemia - anemia - Functional decline - Elevated Troponin - hypothyroid Recommendations - Remeron trial - calorie count - liquid shakes / supplements - family to bring home foods - check OB --> negative Subjective Allergies: Coded Allergies: No Known Allergies (Unverified , 10/07/17) Subjective Feels OK no abd complaints Objective Last 24 Hour Vital Signs Date Time Temp Pulse Resp B/P (MAP) Pulse Ox O2 Delivery O2 Flow Rate FiO2 11/03/19 19:27 95 Room Air 21 11/03/19 19:27 73 18 99 Room Air 21 69 15 93 11/03/19 16:00 98.4 70 20 158/74 (102) 95 11/03/19 12:00 97.8 62 20 142/69 (93) 95 11/03/19 09:21 75 166/78 11/03/19 09:21 75 166/78 11/03/19 09:00 Nasal Cannula 3.0 11/03/19 08:00 97.7 75 20 166/78 (107) 95 11/03/19 06:38 96 Nasal Cannula 2.0 28 11/03/19 04:00 98.8 70 18 149/76 (100) 95 11/03/19 00:26 70 18 99 Room Air 21 68 16 96 11/03/19 00:00 98.3 66 20 146/72 (96) 95 Intake and Output 11/02/19 11/03/19 19:00 07:00 Intake Total 1055 ml Output Total 1400 ml 1800 ml Balance -345 ml -1800 ml Intake Oral 1000 ml IV Total 55 ml Output Urine Total 1400 ml 1800 ml # Voids 1 Laboratory Tests 11/03/19 11:40: White Blood Count 9.6, Red Blood Count 2.86L, Hemoglobin 9.1L, Hematocrit 27.4L , Mean Corpuscular Volume 96, Mean Corpuscular Hemoglobin 31.9H, Mean Corpuscular Hemoglobin Concent 33.2, Red Cell Distribution Width 12.9, Platelet Count 303, Mean Platelet Volume 5.9L, Neutrophils (%) (Auto) 73.2, Lymphocytes ( %) (Auto) 12.1L, Monocytes (%) (Auto) 6.3, Eosinophils (%) (Auto) 7.6H, Basophils (%) (Auto) 0.9 Height (Feet): 5 Height (Inches): 10.00 Weight (Pounds): 218 Objective WDWN NCAT supple CTA RR abd soft no edema Naheed Welch MD Nov 03, 2019 20:48
--- NOTE | 2019-11-03 20:52 | General Progress Note ---
Assessment/Plan Problem List: (1) Sepsis ICD Codes: A41.9 - Sepsis, unspecified organism SNOMED: 46876734 (2) Hypoglycemia ICD Codes: E16.2 - Hypoglycemia, unspecified SNOMED: 587124479 (3) Elevated troponin ICD Codes: R79.89 - Other specified abnormal findings of blood chemistry SNOMED: 795755525, 174619519, 793629736 (4) Renal failure (ARF), acute on chronic ICD Codes: N17.9 - Acute kidney failure, unspecified; N18.9 - Chronic kidney disease, unspecified SNOMED: 763380719 Qualifiers: Qualified Codes: N17.9 - Acute kidney failure, unspecified; N18.3 - Chronic kidney disease, stage 3 (moderate) (5) Hypothyroid ICD Codes: E03.9 - Hypothyroidism, unspecified SNOMED: 56479215 (6) HTN (hypertension) ICD Codes: I10 - Essential (primary) hypertension SNOMED: 89899585 (7) Diabetic nephropathy ICD Codes: E11.21 - Type 2 diabetes mellitus with diabetic nephropathy SNOMED: 247619293 (8) Anemia in chronic kidney disease (CKD) ICD Codes: N18.9 - Chronic kidney disease, unspecified; D63.1 - Anemia in chronic kidney disease SNOMED: 349540854 Assessment/Plan: TROP is trending upward.rx per dr bernal poor candidate for surgical intervention sepsis ams sugar improved poor appettie inform cardio of increase trop ftt not eating confused still Subjective ROS Limited/Unobtainable: Yes Allergies: Coded Allergies: No Known Allergies (Unverified , 10/07/17) Objective Last 24 Hour Vital Signs Date Time Temp Pulse Resp B/P (MAP) Pulse Ox O2 Delivery O2 Flow Rate FiO2 11/03/19 19:27 95 Room Air 21 11/03/19 19:27 73 18 99 Room Air 21 69 15 93 11/03/19 16:00 98.4 70 20 158/74 (102) 95 11/03/19 12:00 97.8 62 20 142/69 (93) 95 11/03/19 09:21 75 166/78 11/03/19 09:21 75 166/78 11/03/19 09:00 Nasal Cannula 3.0 11/03/19 08:00 97.7 75 20 166/78 (107) 95 11/03/19 06:38 96 Nasal Cannula 2.0 28 11/03/19 04:00 98.8 70 18 149/76 (100) 95 11/03/19 00:26 70 18 99 Room Air 21 68 16 96 11/03/19 00:00 98.3 66 20 146/72 (96) 95 Intake and Output 11/02/19 11/03/19 19:00 07:00 Intake Total 1055 ml Output Total 1400 ml 1800 ml Balance -345 ml -1800 ml Intake Oral 1000 ml IV Total 55 ml Output Urine Total 1400 ml 1800 ml # Voids 1 Laboratory Tests 11/03/19 11:40: White Blood Count 9.6, Red Blood Count 2.86L, Hemoglobin 9.1L, Hematocrit 27.4L , Mean Corpuscular Volume 96, Mean Corpuscular Hemoglobin 31.9H, Mean Corpuscular Hemoglobin Concent 33.2, Red Cell Distribution Width 12.9, Platelet Count 303, Mean Platelet Volume 5.9L, Neutrophils (%) (Auto) 73.2, Lymphocytes ( %) (Auto) 12.1L, Monocytes (%) (Auto) 6.3, Eosinophils (%) (Auto) 7.6H, Basophils (%) (Auto) 0.9 Height (Feet): 5 Height (Inches): 10.00 Weight (Pounds): 218 General Appearance: lethargic, confused Cardiovascular: normal rate Respiratory/Chest: lungs clear Oni Schilling MD Nov 03, 2019 20:51
[2019-11-03] MEDS: Atorvastatin 80mg tab ORAL SCH (20:57)
--- NOTE | 2019-11-03 21:30 | Consultation ---
DATE OF CONSULTATION: 11/03/2019 CONSULTING PHYSICIAN: Gómez Cooper M.D. HISTORY OF PRESENT ILLNESS: This is a 64-year-old male with a history of multiple medical problems who has been admitted to the hospital for medical stabilization. The patient is having severe agitation, anxiety, yelling, screaming, and attempting to come out of bed. The patient is not able to remain in bed and is a poor historian. PAST PSYCHIATRIC HISTORY: Nonsignificant. PAST MEDICAL HISTORY: BPH, constipation, hypothyroidism, hypertension, hyperlipidemia. ALLERGIES: No known drug allergies. SUBSTANCE ABUSE HISTORY: No known. There is no urine toxicology. MENTAL STATUS EXAMINATION: The patient is having waxing and waning consciousness. Mood is agitated. Affect is flat. Thought process is concrete. Thought content, no suicidal or homicidal ideation. Cognition is impaired. ASSESSMENT: AXIS I: Acute toxic encephalopathy. PLAN: 1. Continue the lorazepam. 2. Continue the Remeron. 3. We will continue to follow and readjust the medications. Gómez Cooper M.D. DR: FLORIDALMA JOB#: [id number] CC:
[2019-11-04] VITALS: BP 120/74
[2019-11-04] MEDS: Albuterol/Ipratropium 3ml neb HHN SCH ×2 (00:56→08:09)
[2019-11-04 04:00] VITALS: BP 148/68
--- NOTE | 2019-11-04 06:36 | Hematology/Onc Progress Note ---
Assessment/Plan Assessment/Plan Assessment and Recs: # Anemia due to underlying GI bleed -- patient presents with hematemesis before and now with barb --> as per GI eval, may need endoscopy --> has been started on ppi --> cea has been ordered --> Hgb goal >7. Transfuse prn. --> Will sign consent if necessary --> Epogen not started. IRON IV x 5 days completed --> Consider octreotide gtt as per gi eval --> Medications have been reviewed --> Hgb 8.8 -->8.6-->8.7-->8.9-->8.5-->9.1 # Coagulation defect/Bleeding, multifactorial usually related to poor PO intake versus medications, in this case related to coumadin --> administer Vitamin K if patient is bleeding or FFP if the INR is >10 --> hold off on ffp unless active procedure/bleeding, first begin with vit K 10 --> mixing study as needed --> HAVE STOPPED COUMADIN --> per cards, hold off at this time, is aware of afib hx # Anemia due to folic acid deficiency/iron deficiency as well --> prior folic acid<5 --> recheck levels # Elevated troponin, rising, ?nstemi --> aware --> anticoag as per his recs # FTT -- failure to thrive --> mirtazapine per gi # Renal failure (ARF), acute on chronic --> per renal Dr. Farr # UTI --> abx as needed --> abx: ceftriaxone # Dvt ppx on scds now --> on plavix and asa The timing of this note does not necessarily reflect the time of the patient was seen. Greatly appreciate consultation. Subjective Constitutional: Denies: no symptoms, chills, fever, malaise, weakness, other HEENT: Denies: no symptoms, eye pain, blurred vision, tearing, double vision, ear pain, ear discharge, nose pain, nose congestion, throat pain, throat swelling, mouth pain, mouth swelling, other Cardiovascular: Denies: no symptoms, chest pain, edema, irregular heart rate, lightheadedness, palpitations, syncope, other Respiratory: Denies: no symptoms, cough, shortness of breath, SOB with excertion, SOB at rest, sputum, wheezing, other Gastrointestinal/Abdominal: Denies: no symptoms, abdomen distended, abdominal pain, black stools, tarry stools, blood in stool, constipated, diarrhea, difficulty swallowing, nausea, poor appetite, poor fluid intake, rectal bleeding , vomiting, other Genitourinary: Denies: no symptoms, burning, discharge, frequency, flank pain, hematuria, incontinence, pain, urgency, other Endocrine: Denies: no symptoms, excessive sweating, flushing, intolerance to cold, intolerance to heat, increased hunger, increased thirst, increased urine, unexplained weight gain, unexplained weight loss, other Allergies: Coded Allergies: No Known Allergies (Unverified , 10/07/17) Subjective 10/27: awake, venous duplex negative, iv iron, nose bleed 10/28: is awake, alert on 2l flow, no bleeding, coags noted 10/29: no major changes, seen by pulm, coag midly elevated, hgb in the 8s 10/30: no events, no bleeding or chills, no major changes, hgb 8.7 10/31: to be transferred to med surg, ct head negative, h/h stable, on ceftriaxone 11/02: awake and alert, no acute events, labs reviewed, nc 11/03: labs still pending from am, remains agitated and anxious, no bleedng, on ctx Objective Objective Current Medications Medications (Trade) Dose Ordered Sig/Leon Route PRN Reason Start Time Stop Time Status Last Admin Dose Admin Acetaminophen (Tylenol) 500 mg Q4H PRN ORAL Mild Pain/Temp > 100.5 11/01/19 06:15 11/23/19 06:14 Albuterol/ Ipratropium (Albuterol/ Ipratropium) 3 ml Q6HRT HHN 11/01/19 07:00 11/04/19 12:59 11/04/19 00:56 Amlodipine Besylate (Norvasc) 5 mg Q12HR ORAL 11/01/19 09:00 11/24/19 20:59 11/03/19 20:57 Aspirin (Ecotrin) 81 mg DAILY ORAL 11/01/19 09:00 11/24/19 08:59 11/03/19 09:20 Atorvastatin Calcium (Lipitor) 80 mg BEDTIME ORAL 11/01/19 21:00 11/23/19 20:59 11/03/19 20:57 Clopidogrel Bisulfate (Plavix) 75 mg DAILY ORAL 11/01/19 09:00 11/24/19 08:59 11/03/19 09:20 Dextrose (Dextrose 50%) 25 ml Q30M PRN IV Hypoglycemia 11/01/19 06:15 11/23/19 05:14 Dextrose (Dextrose 50%) 50 ml Q30M PRN IV Hypoglycemia 11/01/19 06:15 11/23/19 05:14 Docusate Sodium (Colace) 100 mg TWICE A DAY ORAL 11/01/19 09:00 11/23/19 17:59 11/03/19 09:20 Finasteride (Proscar) 5 mg DAILY ORAL 11/01/19 09:00 11/24/19 08:59 11/03/19 09:20 Furosemide (Lasix) 40 mg DAILY ORAL 11/01/19 09:00 11/24/19 09:59 11/03/19 09:20 Haloperidol Lactate (Haldol) 5 mg Q6H PRN IM Agitation 11/03/19 08:30 12/03/19 08:29 11/03/19 09:17 Levothyroxine Sodium (Synthroid) 150 mcg DAILY@0630 ORAL 11/01/19 06:30 11/23/19 06:29 11/04/19 06:08 Lorazepam (Ativan) 2 mg Q4H PRN ORAL For Anxiety 11/03/19 14:11 11/10/19 14:10 11/03/19 17:42 Metoprolol Tartrate (Lopressor) 25 mg Q12HR ORAL 11/01/19 09:00 11/23/19 10:59 11/03/19 20:58 Mirtazapine (Remeron) 15 mg BEDTIME ORAL 11/03/19 21:00 11/27/19 20:59 11/03/19 20:58 Pantoprazole (Protonix) 40 mg DAILY ORAL 11/02/19 09:00 12/02/19 08:59 11/03/19 09:21 Tamsulosin HCl (Flomax) 0.4 mg BID ORAL 11/01/19 09:00 11/23/19 20:59 11/03/19 17:24 Last 24 Hour Vital Signs Date Time Temp Pulse Resp B/P (MAP) Pulse Ox O2 Delivery O2 Flow Rate FiO2 11/04/19 04:00 97.9 71 22 148/68 (94) 97 11/04/19 00:56 77 16 100 Room Air 21 72 18 94 11/04/19 00:00 97.0 82 22 120/74 (89) 98 11/03/19 21:24 Nasal Cannula 4.0 11/03/19 20:58 78 150/81 11/03/19 20:57 78 150/81 11/03/19 20:00 97.9 77 20 150/81 (104) 100 11/03/19 19:27 95 Room Air 21 11/03/19 19:27 73 18 99 Room Air 21 69 15 93 11/03/19 16:00 98.4 70 20 158/74 (102) 95 11/03/19 12:00 97.8 62 20 142/69 (93) 95 11/03/19 09:21 75 166/78 11/03/19 09:21 75 166/78 11/03/19 09:00 Nasal Cannula 3.0 11/03/19 08:00 97.7 75 20 166/78 (107) 95 11/03/19 06:38 96 Nasal Cannula 2.0 28 11/03/19 04:00 98.8 70 18 149/76 (100) 95 11/03/19 00:26 70 18 99 Room Air 21 68 16 96 11/03/19 00:00 98.3 66 20 146/72 (96) 95 11/02/19 20:22 68 151/73 11/02/19 20:22 68 151/73 11/02/19 20:00 98.8 68 20 151/73 (99) 96 11/02/19 19:46 69 20 99 Nasal Cannula 4.0 36 67 18 99 11/02/19 19:46 99 Nasal Cannula 2.0 28 11/02/19 16:00 98.4 87 20 147/79 (101) 98 11/02/19 12:00 98.2 73 20 144/80 (101) 99 11/02/19 08:17 Nasal Cannula 4.0 Nasal Cannula 4.0 11/02/19 08:16 67 150/73 11/02/19 08:16 67 150/73 11/02/19 08:00 98.0 67 19 150/73 (98) 100 11/02/19 07:48 70 18 99 64 20 97 11/02/19 07:48 97 Room Air 21 Intake and Output 11/03/19 11/04/19 19:00 07:00 Intake Total 240 ml Output Total 600 ml Balance -360 ml Intake Oral 240 ml Output Urine Total 600 ml # Bowel Movements 2 Labs Test 11/01/19 09:35 11/02/19 07:00 11/03/19 11:40 White Blood Count 7.4 K/UL (4.8-10.8) 7.2 K/UL (4.8-10.8) 9.6 K/UL (4.8-10.8) Red Blood Count 2.77 M/UL (4.70-6.10) 2.70 M/UL (4.70-6.10) 2.86 M/UL (4.70-6.10) Hemoglobin 8.9 G/DL (14.2-18.0) 8.5 G/DL (14.2-18.0) 9.1 G/DL (14.2-18.0) Hematocrit 26.5 % (42.0-52.0) 25.8 % (42.0-52.0) 27.4 % (42.0-52.0) Mean Corpuscular Volume 96 FL (80-99) 95 FL (80-99) 96 FL (80-99) Mean Corpuscular Hemoglobin 32.1 PG (27.0-31.0) 31.7 PG (27.0-31.0) 31.9 PG (27.0-31.0) Mean Corpuscular Hemoglobin Concent 33.5 G/DL (32.0-36.0) 33.2 G/DL (32.0-36.0) 33.2 G/DL (32.0-36.0) Red Cell Distribution Width 12.9 % (11.6-14.8) 12.8 % (11.6-14.8) 12.9 % (11.6-14.8) Platelet Count 263 K/UL (150-450) 263 K/UL (150-450) 303 K/UL (150-450) Mean Platelet Volume 6.4 FL (6.5-10.1) 6.5 FL (6.5-10.1) 5.9 FL (6.5-10.1) Neutrophils (%) (Auto) 60.7 % (45.0-75.0) 58.3 % (45.0-75.0) 73.2 % (45.0-75.0) Lymphocytes (%) (Auto) 24.1 % (20.0-45.0) 23.7 % (20.0-45.0) 12.1 % (20.0-45.0) Monocytes (%) (Auto) 10.4 % (1.0-10.0) 8.2 % (1.0-10.0) 6.3 % (1.0-10.0) Eosinophils (%) (Auto) 4.1 % (0.0-3.0) 8.8 % (0.0-3.0) 7.6 % (0.0-3.0) Basophils (%) (Auto) 0.7 % (0.0-2.0) 1.1 % (0.0-2.0) 0.9 % (0.0-2.0) Sodium Level 143 MMOL/L (136-145) Potassium Level 4.5 MMOL/L (3.5-5.1) Chloride Level 108 MMOL/L (98-107) Carbon Dioxide Level 23 MMOL/L (21-32) Anion Gap 13 mmol/L (5-15) Blood Urea Nitrogen 43 mg/dL (7-18) Creatinine 2.8 MG/DL (0.55-1.30) Estimat Glomerular Filtration Rate 22.9 mL/min (>60) Glucose Level 91 MG/DL (74-106) Uric Acid 7.3 MG/DL (2.6-7.2) Calcium Level 8.2 MG/DL (8.5-10.1) Phosphorus Level 3.9 MG/DL (2.5-4.9) Magnesium Level 1.8 MG/DL (1.8-2.4) Total Bilirubin 0.4 MG/DL (0.2-1.0) Aspartate Amino Transf (AST/SGOT) 30 U/L (15-37) Alanine Aminotransferase (ALT/SGPT) 25 U/L (12-78) Alkaline Phosphatase 83 U/L (46-116) Troponin I 1.231 ng/mL (0.000-0.056) C-Reactive Protein, Quantitative 8.2 mg/dL (0.00-0.90) Pro-B-Type Natriuretic Peptide 41754 pg/mL (0-125) Total Protein 6.5 G/DL (6.4-8.2) Albumin 2.5 G/DL (3.4-5.0) Globulin 4.0 g/dL Albumin/Globulin Ratio 0.6 (1.0-2.7) Height (Feet): 5 Height (Inches): 10.00 Weight (Pounds): 218 Objective PE Vitals: reviewed General Appearance: NAD + chronically ill HEENT: normocephalic, atraumatic ++ biconjunctival hemorrhage-> improved Neck: non-tender, normal alignment Respiratory/Chest: nromal breath sounds bilaterally, NC+ Cardiovascular/Chest: normal peripheral pulses, normal rate Abdomen: normal bowel sounds, soft, nontender Extremities: normal range of motion, Right arm skin tear, left sided weaknness NEURO: ++ left sided weakness Nate Whyte MD Nov 04, 2019 06:36
--- NOTE | 2019-11-04 06:57 | NUR ---
HAND-OFF: Report given to Brendon BLAKE.
--- NOTE | 2019-11-04 07:06 | General Progress Note ---
Assessment/Plan Problem List: (1) Hypothyroid ICD Codes: E03.9 - Hypothyroidism, unspecified SNOMED: 87489707 (2) HTN (hypertension) ICD Codes: I10 - Essential (primary) hypertension SNOMED: 91266512 (3) Diabetic nephropathy ICD Codes: E11.21 - Type 2 diabetes mellitus with diabetic nephropathy SNOMED: 504499707 (4) Hypoglycemia ICD Codes: E16.2 - Hypoglycemia, unspecified SNOMED: 751967026 (5) Renal failure (ARF), acute on chronic ICD Codes: N17.9 - Acute kidney failure, unspecified; N18.9 - Chronic kidney disease, unspecified SNOMED: 828932921 Qualifiers: Qualified Codes: N17.9 - Acute kidney failure, unspecified; N18.3 - Chronic kidney disease, stage 3 (moderate) Assessment/Plan: continue LT4 150 mcg daily continue glucose monitoring no need for scheduled diabetic medications hypoglycemia protocol in order Subjective ROS Limited/Unobtainable: Yes Allergies: Coded Allergies: No Known Allergies (Unverified , 10/07/17) Subjective events noted interval notes reviewed glucose values are stable without hypoglycemia Item Value Date Time Bedside Blood Glucose 91 mg/dl 11/04/19 0441 Bedside Blood Glucose 95 mg/dl 11/04/19 0030 Bedside Blood Glucose 92 mg/dl 11/03/19 1658 Bedside Blood Glucose 94 mg/dl 11/03/19 1156 Bedside Blood Glucose 90 mg/dl 11/03/19 0930 Bedside Blood Glucose 82 mg/dl 11/03/19 0400 Bedside Blood Glucose 88 mg/dl 11/03/19 0000 Objective Last 24 Hour Vital Signs Date Time Temp Pulse Resp B/P (MAP) Pulse Ox O2 Delivery O2 Flow Rate FiO2 11/04/19 04:00 97.9 71 22 148/68 (94) 97 11/04/19 00:56 77 16 100 Room Air 21 72 18 94 11/04/19 00:00 97.0 82 22 120/74 (89) 98 11/03/19 21:24 Nasal Cannula 4.0 11/03/19 20:58 78 150/81 11/03/19 20:57 78 150/81 11/03/19 20:00 97.9 77 20 150/81 (104) 100 11/03/19 19:27 95 Room Air 21 11/03/19 19:27 73 18 99 Room Air 21 69 15 93 11/03/19 16:00 98.4 70 20 158/74 (102) 95 11/03/19 12:00 97.8 62 20 142/69 (93) 95 11/03/19 09:21 75 166/78 11/03/19 09:21 75 166/78 11/03/19 09:00 Nasal Cannula 3.0 11/03/19 08:00 97.7 75 20 166/78 (107) 95 Intake and Output 11/03/19 11/04/19 19:00 07:00 Intake Total 240 ml Output Total 600 ml Balance -360 ml Intake Oral 240 ml Output Urine Total 600 ml # Bowel Movements 2 Laboratory Tests 11/03/19 11:40: White Blood Count 9.6, Red Blood Count 2.86L, Hemoglobin 9.1L, Hematocrit 27.4L , Mean Corpuscular Volume 96, Mean Corpuscular Hemoglobin 31.9H, Mean Corpuscular Hemoglobin Concent 33.2, Red Cell Distribution Width 12.9, Platelet Count 303, Mean Platelet Volume 5.9L, Neutrophils (%) (Auto) 73.2, Lymphocytes ( %) (Auto) 12.1L, Monocytes (%) (Auto) 6.3, Eosinophils (%) (Auto) 7.6H, Basophils (%) (Auto) 0.9 11/04/19 06:45: White Blood Count [Pending], Red Blood Count [Pending], Hemoglobin [Pending], Hematocrit [Pending], Mean Corpuscular Volume [Pending], Mean Corpuscular Hemoglobin [Pending], Mean Corpuscular Hemoglobin Concent [Pending], Red Cell Distribution Width [Pending], Platelet Count [Pending], Mean Platelet Volume [ Pending], Neutrophils (%) (Auto) [Pending], Lymphocytes (%) (Auto) [Pending], Monocytes (%) (Auto) [Pending], Eosinophils (%) (Auto) [Pending], Basophils (%) (Auto) [Pending], Sodium Level [Pending], Potassium Level [Pending], Chloride Level [Pending], Carbon Dioxide Level [Pending], Blood Urea Nitrogen [Pending], Creatinine [Pending], Estimat Glomerular Filtration Rate [Pending], Glucose Level [Pending], Uric Acid [Pending], Calcium Level [Pending], Phosphorus Level [Pending], Magnesium Level [Pending], Total Bilirubin [Pending], Aspartate Amino Transf (AST/SGOT) [Pending], Alanine Aminotransferase (ALT/SGPT) [Pending] , Alkaline Phosphatase [Pending], C-Reactive Protein, Quantitative [Pending], Pro-B-Type Natriuretic Peptide [Pending], Total Protein [Pending], Albumin [ Pending], Globulin [Pending] Height (Feet): 5 Height (Inches): 10.00 Weight (Pounds): 218 General Appearance: no apparent distress Neck: normal alignment Cardiovascular: normal rate Respiratory/Chest: lungs clear Abdomen: normal bowel sounds Pelvis: normal external exam Objective Current Medications Medications (Trade) Dose Ordered Sig/Leon Route PRN Reason Start Time Stop Time Status Last Admin Dose Admin Acetaminophen (Tylenol) 500 mg Q4H PRN ORAL Mild Pain/Temp > 100.5 11/01/19 06:15 11/23/19 06:14 Albuterol/ Ipratropium (Albuterol/ Ipratropium) 3 ml Q6HRT HHN 11/01/19 07:00 11/04/19 12:59 11/04/19 00:56 Amlodipine Besylate (Norvasc) 5 mg Q12HR ORAL 11/01/19 09:00 11/24/19 20:59 11/03/19 20:57 Aspirin (Ecotrin) 81 mg DAILY ORAL 11/01/19 09:00 11/24/19 08:59 11/03/19 09:20 Atorvastatin Calcium (Lipitor) 80 mg BEDTIME ORAL 11/01/19 21:00 11/23/19 20:59 11/03/19 20:57 Clopidogrel Bisulfate (Plavix) 75 mg DAILY ORAL 11/01/19 09:00 11/24/19 08:59 11/03/19 09:20 Dextrose (Dextrose 50%) 25 ml Q30M PRN IV Hypoglycemia 11/01/19 06:15 11/23/19 05:14 Dextrose (Dextrose 50%) 50 ml Q30M PRN IV Hypoglycemia 11/01/19 06:15 11/23/19 05:14 Docusate Sodium (Colace) 100 mg TWICE A DAY ORAL 11/01/19 09:00 11/23/19 17:59 11/03/19 09:20 Finasteride (Proscar) 5 mg DAILY ORAL 11/01/19 09:00 11/24/19 08:59 11/03/19 09:20 Furosemide (Lasix) 40 mg DAILY ORAL 11/01/19 09:00 11/24/19 09:59 11/03/19 09:20 Haloperidol Lactate (Haldol) 5 mg Q6H PRN IM Agitation 11/03/19 08:30 12/03/19 08:29 11/03/19 09:17 Levothyroxine Sodium (Synthroid) 150 mcg DAILY@0630 ORAL 11/01/19 06:30 11/23/19 06:29 11/04/19 06:08 Lorazepam (Ativan) 2 mg Q4H PRN ORAL For Anxiety 11/03/19 14:11 11/10/19 14:10 11/03/19 17:42 Metoprolol Tartrate (Lopressor) 25 mg Q12HR ORAL 11/01/19 09:00 11/23/19 10:59 11/03/19 20:58 Mirtazapine (Remeron) 15 mg BEDTIME ORAL 11/03/19 21:00 11/27/19 20:59 11/03/19 20:58 Pantoprazole (Protonix) 40 mg DAILY ORAL 11/02/19 09:00 12/02/19 08:59 11/03/19 09:21 Tamsulosin HCl (Flomax) 0.4 mg BID ORAL 11/01/19 09:00 11/23/19 20:59 11/03/19 17:24 Aureliano Estrada MD Nov 04, 2019 07:06
[2019-11-04 07:30] LABS: BASOPHILS % (AUTO) 0.7 % (0.0-2.0); EOSINOPHILS % (AUTO) 3.9 % (0.0-3.0); HEMOGLOBIN 9.3 G/DL (14.2-18.0); LYMPHOCYTES % (AUTO) 13.9 % (20.0-45.0); MEAN CORPUSCULAR VOLUME 95 FL (80-99); MONOCYTES % (AUTO) 5.6 % (1.0-10.0); NEUTROPHILS % (AUTO) 75.9 % (45.0-75.0); PLATELET COUNT 352 K/UL (150-450); RED BLOOD COUNT 2.93 M/UL (4.70-6.10); RED CELL DISTRIBUTION WIDTH 12.9 % (11.6-14.8); WHITE BLOOD COUNT 12.5 K/UL (4.8-10.8)
--- NOTE | 2019-11-04 07:31 | NUR ---
NURSE NOTES: PT RESTING IN BED. CALM AND IN NO APPARENT DISTRESS AT THIS TIME. BED IN LOWEST POSITION WITH BEDSIDE RAILS X3 RAISED. BED ALARM ON ZONE 1. RIGHT FOREARM IV ACCESS ASYMPTOMATIC, PATENT AND INTACT. WILL CONTINUE TO MONITOR. CALL LIGHT WITHIN REACH.
--- NOTE | 2019-11-04 07:40 | NUR ---
NURSE NOTES: RN RECEIVED TELEPHONE ORDER TO CHANGE BEDSIDE BLOOD GLUCOSE CHECKS FROM Q4H TO AC/HS. ORDER ENTERED.
[2019-11-04 07:50] LABS: ALANINE AMINOTRANSFERASE 19 U/L (12-78); ALBUMIN 2.5 G/DL (3.4-5.0); ALBUMIN/GLOBULIN RATIO 0.6 (1.0-2.7); ALKALINE PHOSPHATASE 83 U/L (46-116); ANION GAP 9 mmol/L (5-15); ASPARTATE AMINO TRANSFERASE 28 U/L (15-37); BILIRUBIN,TOTAL 0.2 MG/DL (0.2-1.0); BLOOD UREA NITROGEN 40 mg/dL (7-18); CALCIUM 8.4 MG/DL (8.5-10.1); CARBON DIOXIDE 27 MMOL/L (21-32); CHLORIDE 111 MMOL/L (98-107); CREATININE 2.6 MG/DL (0.55-1.30); PHOSPHORUS 3.7 MG/DL (2.5-4.9); POTASSIUM 3.9 MMOL/L (3.5-5.1); SODIUM 147 MMOL/L (136-145)
[2019-11-04 08:00] VITALS: BP 123/59
--- NOTE | 2019-11-04 08:55 | General Progress Note ---
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 D/w Dr. Hanson and he concurred. Subjective Date patient seen: Nov 04, 2019 Time patient seen: 08:00 - am Allergies: Coded Allergies: No Known Allergies (Unverified , 10/07/17) Subjective REVIEW OF SYSTEMS: Denies rash, fever, chills, sweating, dizziness, drowsiness, blurred vision, sore throat, or change in weight. No shortness of breath or chest pain. No nausea, vomiting, diarrhea, or blood in the stool or urine. No bowel or bladder incontinence. No dysuria. SUBJECTIVE: Patient showing no signs of pain or distress. He is in bed and states no pain at this time. No new complaints. Objective Last 24 Hour Vital Signs Date Time Temp Pulse Resp B/P (MAP) Pulse Ox O2 Delivery O2 Flow Rate FiO2 11/04/19 08:11 70 20 100 Room Air 21 68 20 98 11/04/19 08:11 98 Room Air 21 11/04/19 08:00 98.8 70 18 123/59 (80) 99 11/04/19 04:00 97.9 71 22 148/68 (94) 97 11/04/19 00:56 77 16 100 Room Air 21 72 18 94 11/04/19 00:00 97.0 82 22 120/74 (89) 98 11/03/19 21:24 Nasal Cannula 4.0 11/03/19 20:58 78 150/81 11/03/19 20:57 78 150/81 11/03/19 20:00 97.9 77 20 150/81 (104) 100 11/03/19 19:27 95 Room Air 21 11/03/19 19:27 73 18 99 Room Air 21 69 15 93 11/03/19 16:00 98.4 70 20 158/74 (102) 95 11/03/19 12:00 97.8 62 20 142/69 (93) 95 11/03/19 09:21 75 166/78 11/03/19 09:21 75 166/78 11/03/19 09:00 Nasal Cannula 3.0 Intake and Output 11/03/19 11/04/19 19:00 07:00 Intake Total 240 ml Output Total 600 ml Balance -360 ml Intake Oral 240 ml Output Urine Total 600 ml # Bowel Movements 2 Laboratory Tests 11/03/19 11:40: White Blood Count 9.6, Red Blood Count 2.86L, Hemoglobin 9.1L, Hematocrit 27.4L , Mean Corpuscular Volume 96, Mean Corpuscular Hemoglobin 31.9H, Mean Corpuscular Hemoglobin Concent 33.2, Red Cell Distribution Width 12.9, Platelet Count 303, Mean Platelet Volume 5.9L, Neutrophils (%) (Auto) 73.2, Lymphocytes ( %) (Auto) 12.1L, Monocytes (%) (Auto) 6.3, Eosinophils (%) (Auto) 7.6H, Basophils (%) (Auto) 0.9 11/04/19 06:30: White Blood Count 12.5H, Red Blood Count 2.93L, Hemoglobin 9.3L, Hematocrit 28.0L, Mean Corpuscular Volume 95, Mean Corpuscular Hemoglobin 31.8H, Mean Corpuscular Hemoglobin Concent 33.4, Red Cell Distribution Width 12.9, Platelet Count 352, Mean Platelet Volume 5.9L, Neutrophils (%) (Auto) 75.9H, Lymphocytes (%) (Auto) 13.9L, Monocytes (%) (Auto) 5.6, Eosinophils (%) (Auto) 3.9H, Basophils (%) (Auto) 0.7, Sodium Level 147H, Potassium Level 3.9, Chloride Level 111H, Carbon Dioxide Level 27, Anion Gap 9, Blood Urea Nitrogen 40H, Creatinine 2.6H, Estimat Glomerular Filtration Rate 25.0, Glucose Level 96, Uric Acid 7.9H, Calcium Level 8.4L, Phosphorus Level 3.7, Magnesium Level 1.8, Total Bilirubin 0.2, Aspartate Amino Transf (AST/SGOT) 28, Alanine Aminotransferase (ALT/SGPT) 19, Alkaline Phosphatase 83, C-Reactive Protein, Quantitative 4.5H, Pro-B-Type Natriuretic Peptide 02392D, Total Protein 6.4, Albumin 2.5L, Globulin 3.9, Albumin/Globulin Ratio 0.6L Height (Feet): 5 Height (Inches): 10.00 Weight (Pounds): 218 Objective GENERAL: Alert, awake, and oriented. LUNGS: Decreased breath sounds bilaterally. HEART: S1 and S2 regular. ABDOMEN: Soft, nontender. EXTREMITIES: No cyanosis. No clubbing. NEURO: No changes. Warren Torres Nov 04, 2019 08:55
[2019-11-04] MEDS: Tamsulosin 0.4mg cap ORAL SCH ×2 (09:54→17:44)
[2019-11-04] MEDS: Aspirin EC 81mg tab ORAL SCH (09:54)
[2019-11-04] MEDS: Furosemide 40mg tab ORAL SCH (09:54)
[2019-11-04] MEDS: Docusate 100mg cap ORAL SCH ×2 (09:54→17:44)
--- NOTE | 2019-11-04 10:38 | Infectious Diseases Prog Note ---
Assessment/Plan Assessment/Plan IMPRESSION: Fever, resolved Urinary tract infection with Proteus Diabetes mellitus with hyperglycemia, anemia, acute renal failure, chronic kidney disease, BPH, hypertension, hypothyroidism. VRE carrier NSTEMI Encephalopathy RECOMMENDATION: Observe off antibiotic Repeat CXR Subjective ROS Limited/Unobtainable: Yes Constitutional: Denies: fever Allergies: Coded Allergies: No Known Allergies (Unverified , 10/07/17) Objective Vital Signs Last 24 Hour Vital Signs Date Time Temp Pulse Resp B/P (MAP) Pulse Ox O2 Delivery O2 Flow Rate FiO2 11/04/19 09:54 70 123/59 11/04/19 09:54 70 123/59 11/04/19 09:00 Nasal Cannula 3.0 11/04/19 08:11 70 20 100 Room Air 21 68 20 98 11/04/19 08:11 98 Room Air 21 11/04/19 08:00 98.8 70 18 123/59 (80) 99 11/04/19 04:00 97.9 71 22 148/68 (94) 97 11/04/19 00:56 77 16 100 Room Air 21 72 18 94 11/04/19 00:00 97.0 82 22 120/74 (89) 98 11/03/19 21:24 Nasal Cannula 4.0 11/03/19 20:58 78 150/81 11/03/19 20:57 78 150/81 11/03/19 20:00 97.9 77 20 150/81 (104) 100 11/03/19 19:27 95 Room Air 21 11/03/19 19:27 73 18 99 Room Air 21 69 15 93 11/03/19 16:00 98.4 70 20 158/74 (102) 95 11/03/19 12:00 97.8 62 20 142/69 (93) 95 Height (Feet): 5 Height (Inches): 10.00 Weight (Pounds): 218 General Appearance: no acute distress HEENT: mucous membranes moist Respiratory/Chest: lungs clear Cardiovascular: normal rate Abdomen: soft, non tender Extremities: no edema Neurologic/Psychiatric: other - sleeping Laboratory Tests Test 11/03/19 11:40 11/04/19 06:30 White Blood Count 9.6 K/UL (4.8-10.8) 12.5 K/UL (4.8-10.8) H Red Blood Count 2.86 M/UL (4.70-6.10) L 2.93 M/UL (4.70-6.10) L Hemoglobin 9.1 G/DL (14.2-18.0) L 9.3 G/DL (14.2-18.0) L Hematocrit 27.4 % (42.0-52.0) L 28.0 % (42.0-52.0) L Mean Corpuscular Volume 96 FL (80-99) 95 FL (80-99) Mean Corpuscular Hemoglobin 31.9 PG (27.0-31.0) H 31.8 PG (27.0-31.0) H Mean Corpuscular Hemoglobin Concent 33.2 G/DL (32.0-36.0) 33.4 G/DL (32.0-36.0) Red Cell Distribution Width 12.9 % (11.6-14.8) 12.9 % (11.6-14.8) Platelet Count 303 K/UL (150-450) 352 K/UL (150-450) Mean Platelet Volume 5.9 FL (6.5-10.1) L 5.9 FL (6.5-10.1) L Neutrophils (%) (Auto) 73.2 % (45.0-75.0) 75.9 % (45.0-75.0) H Lymphocytes (%) (Auto) 12.1 % (20.0-45.0) L 13.9 % (20.0-45.0) L Monocytes (%) (Auto) 6.3 % (1.0-10.0) 5.6 % (1.0-10.0) Eosinophils (%) (Auto) 7.6 % (0.0-3.0) H 3.9 % (0.0-3.0) H Basophils (%) (Auto) 0.9 % (0.0-2.0) 0.7 % (0.0-2.0) Sodium Level 147 MMOL/L (136-145) H Potassium Level 3.9 MMOL/L (3.5-5.1) Chloride Level 111 MMOL/L (98-107) H Carbon Dioxide Level 27 MMOL/L (21-32) Anion Gap 9 mmol/L (5-15) Blood Urea Nitrogen 40 mg/dL (7-18) H Creatinine 2.6 MG/DL (0.55-1.30) H Estimat Glomerular Filtration Rate 25.0 mL/min (>60) Glucose Level 96 MG/DL (74-106) Uric Acid 7.9 MG/DL (2.6-7.2) H Calcium Level 8.4 MG/DL (8.5-10.1) L Phosphorus Level 3.7 MG/DL (2.5-4.9) Magnesium Level 1.8 MG/DL (1.8-2.4) Total Bilirubin 0.2 MG/DL (0.2-1.0) Aspartate Amino Transf (AST/SGOT) 28 U/L (15-37) Alanine Aminotransferase (ALT/SGPT) 19 U/L (12-78) Alkaline Phosphatase 83 U/L (46-116) C-Reactive Protein, Quantitative 4.5 mg/dL (0.00-0.90) H Pro-B-Type Natriuretic Peptide 99988 pg/mL (0-125) H Total Protein 6.4 G/DL (6.4-8.2) Albumin 2.5 G/DL (3.4-5.0) L Globulin 3.9 g/dL Albumin/Globulin Ratio 0.6 (1.0-2.7) L Current Medications Medications (Trade) Dose Ordered Sig/Leon Route PRN Reason Start Time Stop Time Status Last Admin Dose Admin Acetaminophen (Tylenol) 500 mg Q4H PRN ORAL Mild Pain/Temp > 100.5 11/01/19 06:15 11/23/19 06:14 Albuterol/ Ipratropium (Albuterol/ Ipratropium) 3 ml Q6HRT HHN 11/01/19 07:00 11/04/19 12:59 11/04/19 08:09 Amlodipine Besylate (Norvasc) 5 mg Q12HR ORAL 11/01/19 09:00 11/24/19 20:59 11/03/19 20:57 Aspirin (Ecotrin) 81 mg DAILY ORAL 11/01/19 09:00 11/24/19 08:59 11/03/19 09:20 Atorvastatin Calcium (Lipitor) 80 mg BEDTIME ORAL 11/01/19 21:00 11/23/19 20:59 11/03/19 20:57 Clopidogrel Bisulfate (Plavix) 75 mg DAILY ORAL 11/01/19 09:00 11/24/19 08:59 11/03/19 09:20 Dextrose (Dextrose 50%) 25 ml Q30M PRN IV Hypoglycemia 11/01/19 06:15 11/23/19 05:14 Dextrose (Dextrose 50%) 50 ml Q30M PRN IV Hypoglycemia 11/01/19 06:15 11/23/19 05:14 Docusate Sodium (Colace) 100 mg TWICE A DAY ORAL 11/01/19 09:00 11/23/19 17:59 11/03/19 09:20 Finasteride (Proscar) 5 mg DAILY ORAL 11/01/19 09:00 11/24/19 08:59 11/03/19 09:20 Furosemide (Lasix) 40 mg DAILY ORAL 11/01/19 09:00 11/24/19 09:59 11/03/19 09:20 Haloperidol Lactate (Haldol) 5 mg Q6H PRN IM Agitation 11/03/19 08:30 12/03/19 08:29 11/03/19 09:17 Levothyroxine Sodium (Synthroid) 150 mcg DAILY@0630 ORAL 11/01/19 06:30 11/23/19 06:29 11/04/19 06:08 Lorazepam (Ativan) 2 mg Q4H PRN ORAL For Anxiety 11/03/19 14:11 11/10/19 14:10 11/03/19 17:42 Metoprolol Tartrate (Lopressor) 25 mg Q12HR ORAL 11/01/19 09:00 11/23/19 10:59 11/03/19 20:58 Mirtazapine (Remeron) 15 mg BEDTIME ORAL 11/03/19 21:00 11/27/19 20:59 11/03/19 20:58 Pantoprazole (Protonix) 40 mg DAILY ORAL 11/02/19 09:00 12/02/19 08:59 11/03/19 09:21 Tamsulosin HCl (Flomax) 0.4 mg BID ORAL 11/01/19 09:00 11/23/19 20:59 11/03/19 17:24 Troy Yeboah MD Nov 04, 2019 10:38
--- NOTE | 2019-11-04 10:55 | Cardiac Electrophysiology PN ---
Assessment/Plan Assessment/Plan 1. NSTEMI. Type 2. Troponin peak 1.8. FU troponins similar range between 0.8 and 1.2 and no CP. ECG no acute ischemia and Echo Nl EF. Due to renal failure. Has Old MA in July 2019 with troponin of more than 24. EF of 60%. On Lopressor 25 bid, aspirin, Plavix and Lipitor 80 2. Questionable atrial fibrillation or DVT, remained in sinus rhythm. Off tele now 3. HTN On Lopressor 25 bid, Norvasc 5 bid and Lasix 40 daily 4. History of CVA with left hemiplegia.On Plavix 5. Nose bleed. Stopped. FU Dr. Brown 6. Fever. 7. Hypothyroidism, on Synthroid. 8. Agitation DW RN and Dr Farr Subjective Subjective Still has diarrhea. No cardiac issues overnight. Objective Last 24 Hour Vital Signs Date Time Temp Pulse Resp B/P (MAP) Pulse Ox O2 Delivery O2 Flow Rate FiO2 11/04/19 09:54 70 123/59 11/04/19 09:54 70 123/59 11/04/19 09:00 Nasal Cannula 3.0 11/04/19 08:11 70 20 100 Room Air 21 68 20 98 11/04/19 08:11 98 Room Air 21 11/04/19 08:00 98.8 70 18 123/59 (80) 99 11/04/19 04:00 97.9 71 22 148/68 (94) 97 11/04/19 00:56 77 16 100 Room Air 21 72 18 94 11/04/19 00:00 97.0 82 22 120/74 (89) 98 11/03/19 21:24 Nasal Cannula 4.0 11/03/19 20:58 78 150/81 11/03/19 20:57 78 150/81 11/03/19 20:00 97.9 77 20 150/81 (104) 100 11/03/19 19:27 95 Room Air 21 11/03/19 19:27 73 18 99 Room Air 21 69 15 93 11/03/19 16:00 98.4 70 20 158/74 (102) 95 11/03/19 12:00 97.8 62 20 142/69 (93) 95 Intake and Output 11/03/19 11/04/19 19:00 07:00 Intake Total 240 ml Output Total 600 ml Balance -360 ml Intake Oral 240 ml Output Urine Total 600 ml # Bowel Movements 2 Laboratory Tests Test 11/03/19 11:40 11/04/19 06:30 White Blood Count 9.6 K/UL (4.8-10.8) 12.5 K/UL (4.8-10.8) H Red Blood Count 2.86 M/UL (4.70-6.10) L 2.93 M/UL (4.70-6.10) L Hemoglobin 9.1 G/DL (14.2-18.0) L 9.3 G/DL (14.2-18.0) L Hematocrit 27.4 % (42.0-52.0) L 28.0 % (42.0-52.0) L Mean Corpuscular Volume 96 FL (80-99) 95 FL (80-99) Mean Corpuscular Hemoglobin 31.9 PG (27.0-31.0) H 31.8 PG (27.0-31.0) H Mean Corpuscular Hemoglobin Concent 33.2 G/DL (32.0-36.0) 33.4 G/DL (32.0-36.0) Red Cell Distribution Width 12.9 % (11.6-14.8) 12.9 % (11.6-14.8) Platelet Count 303 K/UL (150-450) 352 K/UL (150-450) Mean Platelet Volume 5.9 FL (6.5-10.1) L 5.9 FL (6.5-10.1) L Neutrophils (%) (Auto) 73.2 % (45.0-75.0) 75.9 % (45.0-75.0) H Lymphocytes (%) (Auto) 12.1 % (20.0-45.0) L 13.9 % (20.0-45.0) L Monocytes (%) (Auto) 6.3 % (1.0-10.0) 5.6 % (1.0-10.0) Eosinophils (%) (Auto) 7.6 % (0.0-3.0) H 3.9 % (0.0-3.0) H Basophils (%) (Auto) 0.9 % (0.0-2.0) 0.7 % (0.0-2.0) Sodium Level 147 MMOL/L (136-145) H Potassium Level 3.9 MMOL/L (3.5-5.1) Chloride Level 111 MMOL/L (98-107) H Carbon Dioxide Level 27 MMOL/L (21-32) Anion Gap 9 mmol/L (5-15) Blood Urea Nitrogen 40 mg/dL (7-18) H Creatinine 2.6 MG/DL (0.55-1.30) H Estimat Glomerular Filtration Rate 25.0 mL/min (>60) Glucose Level 96 MG/DL (74-106) Uric Acid 7.9 MG/DL (2.6-7.2) H Calcium Level 8.4 MG/DL (8.5-10.1) L Phosphorus Level 3.7 MG/DL (2.5-4.9) Magnesium Level 1.8 MG/DL (1.8-2.4) Total Bilirubin 0.2 MG/DL (0.2-1.0) Aspartate Amino Transf (AST/SGOT) 28 U/L (15-37) Alanine Aminotransferase (ALT/SGPT) 19 U/L (12-78) Alkaline Phosphatase 83 U/L (46-116) C-Reactive Protein, Quantitative 4.5 mg/dL (0.00-0.90) H Pro-B-Type Natriuretic Peptide 65852 pg/mL (0-125) H Total Protein 6.4 G/DL (6.4-8.2) Albumin 2.5 G/DL (3.4-5.0) L Globulin 3.9 g/dL Albumin/Globulin Ratio 0.6 (1.0-2.7) L Objective HEAD AND NECK: No JVD. LUNGS: Clear. CARDIOVASCULAR: Regular S1 and S2 with no gallop. ABDOMEN: Soft. EXTREMITIES: Left hemiplegia with contraction of left arm. Castillo Bazan MD Nov 04, 2019 10:55
--- NOTE | 2019-11-04 11:54 | NUR ---
RD ASSESSMENT & RECOMMENDATIONS SEE CARE ACTIVITY FOR COMPLETE ASSESSMENT DAILY ESTIMATED NEEDS: Needs based on DM, Cardiac, Obesity, renal/ 81.7kg abw 22-25 kcals/kg 1347-8764 total kcals 0.8-1.2 g protein/kg 66-98 g total protein 20-25 mL/kg 8947-0031 total fluid mLs NUTRITION DIAGNOSIS: * Altered nutrition related lab values R/T diabetes, cardiac hx as evidenced by elev BGs (242 196 -> now improved), elev POC glu (200's -> wnl), elev BNP (>32296-> 42331) * Swallowing difficulty R/T dysphagia, h/o CVA as evidenced by OFFICE CASHIER recommends mech soft chopped texture diet-> now advanced to soft easy chew. CURRENT DIET:CARDIAC, mech soft chopped -> REGULAR/ SOFT EASY CHEW (10/29) PO DIET RECOMMENDATIONS: LIBERALIZED REGULAR DIET W/ POOR PO/ texture per OFFICE CASHIER ADDITIONAL RECOMMENDATIONS: * Monitor for hypoglycemia w/ poor PO, snacks TID in b/w meals added * Liberalized regular diet w/ poor PO -> Low Na/ CCHO MED when PO intake consistently >50% * Pt refused HPN -> now agrees, Glucerna (220kcal/10g prot each) TID added 8oz 2% milk TID w/ meals added per pt request (190kcal/10g prot each) * Monitor lytes closely w/ Lasix, replete as needed * Skin integrity: add MVI x 1
[2019-11-04 12:00] VITALS: BP 140/72
--- NOTE | 2019-11-04 12:25 | NUR ---
RADIOLOGY DEPT., CHEST X-RAY DONE.-P.DYE
--- NOTE | 2019-11-04 12:40 | Nephrology Progress Note ---
Assessment/Plan Problem List: (1) Renal failure (ARF), acute on chronic Assessment: Cr slightly higher (2) Elevated troponin (3) Hypoglycemia (4) Hypothyroid (5) HTN (hypertension) (6) Diabetic nephropathy (7) Anemia in chronic kidney disease (CKD) Assessment Urinary retention Renal failure (ARF), acute on chronic Anemia: s/p GI Bleed on anticoagulation h/o Hypertension Elevated troponin h/o Hypothyroid DM- Hypoglycemia on presentation h/o UTI Plan Reinsert Kamara BP management IV Iron watch HR 2D Echo NOTED Kidney MARCO A NOTED Avoid nephrotoxics antibiotics Per orders / per consultants Subjective ROS Limited/Unobtainable: No Constitutional: Reports: malaise, weakness Objective Objective Last 24 Hour Vital Signs Date Time Temp Pulse Resp B/P (MAP) Pulse Ox O2 Delivery O2 Flow Rate FiO2 11/04/19 12:00 97.5 56 18 140/72 (94) 100 11/04/19 09:54 70 123/59 11/04/19 09:54 70 123/59 11/04/19 09:00 Nasal Cannula 3.0 11/04/19 08:11 70 20 100 Room Air 21 68 20 98 11/04/19 08:11 98 Room Air 21 11/04/19 08:00 98.8 70 18 123/59 (80) 99 11/04/19 04:00 97.9 71 22 148/68 (94) 97 11/04/19 00:56 77 16 100 Room Air 21 72 18 94 11/04/19 00:00 97.0 82 22 120/74 (89) 98 11/03/19 21:24 Nasal Cannula 4.0 11/03/19 20:58 78 150/81 11/03/19 20:57 78 150/81 11/03/19 20:00 97.9 77 20 150/81 (104) 100 11/03/19 19:27 95 Room Air 21 11/03/19 19:27 73 18 99 Room Air 21 69 15 93 11/03/19 16:00 98.4 70 20 158/74 (102) 95 Intake and Output 11/03/19 11/04/19 19:00 07:00 Intake Total 240 ml Output Total 600 ml Balance -360 ml Intake Oral 240 ml Output Urine Total 600 ml # Bowel Movements 2 Laboratory Tests 11/04/19 06:30: White Blood Count 12.5H, Red Blood Count 2.93L, Hemoglobin 9.3L, Hematocrit 28.0L, Mean Corpuscular Volume 95, Mean Corpuscular Hemoglobin 31.8H, Mean Corpuscular Hemoglobin Concent 33.4, Red Cell Distribution Width 12.9, Platelet Count 352, Mean Platelet Volume 5.9L, Neutrophils (%) (Auto) 75.9H, Lymphocytes (%) (Auto) 13.9L, Monocytes (%) (Auto) 5.6, Eosinophils (%) (Auto) 3.9H, Basophils (%) (Auto) 0.7, Sodium Level 147H, Potassium Level 3.9, Chloride Level 111H, Carbon Dioxide Level 27, Anion Gap 9, Blood Urea Nitrogen 40H, Creatinine 2.6H, Estimat Glomerular Filtration Rate 25.0, Glucose Level 96, Uric Acid 7.9H, Calcium Level 8.4L, Phosphorus Level 3.7, Magnesium Level 1.8, Total Bilirubin 0.2, Aspartate Amino Transf (AST/SGOT) 28, Alanine Aminotransferase (ALT/SGPT) 19, Alkaline Phosphatase 83, C-Reactive Protein, Quantitative 4.5H, Pro-B-Type Natriuretic Peptide 89664L, Total Protein 6.4, Albumin 2.5L, Globulin 3.9, Albumin/Globulin Ratio 0.6L Height (Feet): 5 Height (Inches): 10.00 Weight (Pounds): 218 General Appearance: no apparent distress, lethargic, other - arousable Cardiovascular: normal rate Respiratory/Chest: decreased breath sounds Abdomen: soft Objective no change Rafa Farr MD Nov 04, 2019 12:40
--- NOTE | 2019-11-04 13:07 | NUR ---
CASE MANAGEMENT:REVIEW SI;SEPSIS. ELEVATED TROPONIN. AC/CHR RENAL FAILURE. 98.38 56 22 148/68 97% ON RA WBC 12.5 NA 147 PRO BNP 67296 IS;DEXTROSE IV ONCE ATIVAN PO Q4 HRS PRN HALDOL IM Q 6 HRS PRN LASIX PO QD MED SURG STATUS DCP; FROM [facility]
--- NOTE | 2019-11-04 15:01 | Diagnostic Imaging Report ---
Indication: Shortness of breath Technique: One view of the chest Comparison: 10/29/2019 Findings: The heart is enlarged. The lungs and pleural spaces are clear. Previously demonstrated right infrahilar infiltrate has cleared. Previously reported generalized interstitial congestion has improved and largely resolved. Impression: Interim resolution of previously demonstrated interstitial congestion. Stable cardiomegaly
[2019-11-04 16:00] VITALS: BP 131/79
--- NOTE | 2019-11-04 17:14 | NUR ---
NURSE NOTES: PT ASLEEP, NOT LETHARGIC. VSS AND IN NO APPARENT DISTRESS. PT UNABLE TO TAKE MEDICATIONS AT THIS TIME. WILL CONTINUE TO MONITOR.
--- NOTE | 2019-11-04 18:11 | Pulmonology Progress Note ---
Assessment/Plan Assessment/Plan IMPRESSION: 1. Mild pulmonary vascular congestion. 2. Hypertension. 3. Diabetes mellitus. 4. Previous CVA. 5. Hypoglycemia. 6. Hypoxemia. 7. Epistaxis 8. Anorexia DISCUSSION: Continue low flow O2 Continue diuresis OK to dc back to snf. Janes Cox M.D. Subjective Interval Events: None new Constitutional: Reports: no symptoms HEENT: Repors: no symptoms Respiratory: Reports: no symptoms Cardiovascular: Reports: no symptoms Gastrointestinal/Abdominal: Reports: no symptoms Genitourinary: Reports: no symptoms Neurologic: Reports: no symptoms Allergies: Coded Allergies: No Known Allergies (Unverified , 10/07/17) Objective Last 24 Hour Vital Signs Date Time Temp Pulse Resp B/P (MAP) Pulse Ox O2 Delivery O2 Flow Rate FiO2 11/04/19 16:00 98.5 59 17 131/79 (96) 100 11/04/19 12:00 97.5 56 18 140/72 (94) 100 11/04/19 09:54 70 123/59 11/04/19 09:54 70 123/59 11/04/19 09:00 Nasal Cannula 3.0 11/04/19 08:11 70 20 100 Room Air 21 68 20 98 11/04/19 08:11 98 Room Air 21 11/04/19 08:00 98.8 70 18 123/59 (80) 99 11/04/19 04:00 97.9 71 22 148/68 (94) 97 11/04/19 00:56 77 16 100 Room Air 21 72 18 94 11/04/19 00:00 97.0 82 22 120/74 (89) 98 11/03/19 21:24 Nasal Cannula 4.0 11/03/19 20:58 78 150/81 11/03/19 20:57 78 150/81 11/03/19 20:00 97.9 77 20 150/81 (104) 100 11/03/19 19:27 95 Room Air 21 11/03/19 19:27 73 18 99 Room Air 21 69 15 93 Intake and Output 11/03/19 11/04/19 19:00 07:00 Intake Total 240 ml Output Total 600 ml Balance -360 ml Intake Oral 240 ml Output Urine Total 600 ml # Bowel Movements 2 General Appearance: no acute distress HEENT: normocephalic Respiratory/Chest: chest wall non-tender, lungs clear Cardiovascular: normal peripheral pulses, normal rate Abdomen: normal bowel sounds Laboratory Tests 11/04/19 06:30: White Blood Count 12.5H, Red Blood Count 2.93L, Hemoglobin 9.3L, Hematocrit 28.0L, Mean Corpuscular Volume 95, Mean Corpuscular Hemoglobin 31.8H, Mean Corpuscular Hemoglobin Concent 33.4, Red Cell Distribution Width 12.9, Platelet Count 352, Mean Platelet Volume 5.9L, Neutrophils (%) (Auto) 75.9H, Lymphocytes (%) (Auto) 13.9L, Monocytes (%) (Auto) 5.6, Eosinophils (%) (Auto) 3.9H, Basophils (%) (Auto) 0.7, Sodium Level 147H, Potassium Level 3.9, Chloride Level 111H, Carbon Dioxide Level 27, Anion Gap 9, Blood Urea Nitrogen 40H, Creatinine 2.6H, Estimat Glomerular Filtration Rate 25.0, Glucose Level 96, Uric Acid 7.9H, Calcium Level 8.4L, Phosphorus Level 3.7, Magnesium Level 1.8, Total Bilirubin 0.2, Aspartate Amino Transf (AST/SGOT) 28, Alanine Aminotransferase (ALT/SGPT) 19, Alkaline Phosphatase 83, C-Reactive Protein, Quantitative 4.5H, Pro-B-Type Natriuretic Peptide 70713P, Total Protein 6.4, Albumin 2.5L, Globulin 3.9, Albumin/Globulin Ratio 0.6L Current Medications Medications (Trade) Dose Ordered Sig/Leon Route PRN Reason Start Time Stop Time Status Last Admin Dose Admin Acetaminophen (Tylenol) 500 mg Q4H PRN ORAL Mild Pain/Temp > 100.5 11/01/19 06:15 11/23/19 06:14 Amlodipine Besylate (Norvasc) 5 mg Q12HR ORAL 11/01/19 09:00 11/24/19 20:59 11/03/19 20:57 Aspirin (Ecotrin) 81 mg DAILY ORAL 11/01/19 09:00 11/24/19 08:59 11/03/19 09:20 Atorvastatin Calcium (Lipitor) 80 mg BEDTIME ORAL 11/01/19 21:00 11/23/19 20:59 11/03/19 20:57 Clopidogrel Bisulfate (Plavix) 75 mg DAILY ORAL 11/01/19 09:00 11/24/19 08:59 11/03/19 09:20 Dextrose (Dextrose 50%) 25 ml Q30M PRN IV Hypoglycemia 11/01/19 06:15 11/23/19 05:14 Dextrose (Dextrose 50%) 50 ml Q30M PRN IV Hypoglycemia 11/01/19 06:15 11/23/19 05:14 Docusate Sodium (Colace) 100 mg TWICE A DAY ORAL 11/01/19 09:00 11/23/19 17:59 11/03/19 09:20 Finasteride (Proscar) 5 mg DAILY ORAL 11/01/19 09:00 11/24/19 08:59 11/03/19 09:20 Furosemide (Lasix) 40 mg DAILY ORAL 11/01/19 09:00 11/24/19 09:59 11/03/19 09:20 Haloperidol Lactate (Haldol) 5 mg Q6H PRN IM Agitation 11/03/19 08:30 12/03/19 08:29 11/03/19 09:17 Levothyroxine Sodium (Synthroid) 150 mcg DAILY@0630 ORAL 11/01/19 06:30 11/23/19 06:29 11/04/19 06:08 Lorazepam (Ativan) 2 mg Q4H PRN ORAL For Anxiety 11/03/19 14:11 11/10/19 14:10 11/03/19 17:42 Metoprolol Tartrate (Lopressor) 25 mg Q12HR ORAL 11/01/19 09:00 11/23/19 10:59 11/03/19 20:58 Mirtazapine (Remeron) 15 mg BEDTIME ORAL 11/03/19 21:00 11/27/19 20:59 11/03/19 20:58 Pantoprazole (Protonix) 40 mg DAILY ORAL 11/02/19 09:00 12/02/19 08:59 11/03/19 09:21 Tamsulosin HCl (Flomax) 0.4 mg BID ORAL 11/01/19 09:00 11/23/19 20:59 11/03/19 17:24 Janes Cox MD Nov 04, 2019 18:11
--- NOTE | 2019-11-04 18:49 | NUR ---
NURSE NOTES: RN RECEIVED ORDER FROM DR Mary Ann ALBARADO FOR CLEARANCE FOR DISCHARGE. DR Angela ALBARADO WAS MADE AWARE OF WBC 12.5 TODAY. RN LEFT MESSAGES FOR DR TREVIZO AND DR HOBSON REGARDING DISCHARGE CLEARANCE.
--- NOTE | 2019-11-04 19:26 | NUR ---
HAND-OFF: Report given to Luis NICE RN.
--- NOTE | 2019-11-04 19:30 | Progress Note ---
DATE: 11/04/2019 SUBJECTIVE: The patient is more manageable, calmer. Still requires administration of medications. Easily agitated. MENTAL STATUS EXAMINATION: Asleep and arousable. Mood is neutral. Affect is flat. Thought process is concrete. Thought content, no suicidal or homicidal ideation. Cognition is impaired. Insight and judgment is impaired. ASSESSMENT: Stable. PLAN: The patient should be discharged when medically cleared. Gómez Cooper M.D. DR: JOSE JOB#: [id number] CC:
[2019-11-04 20:00] VITALS: BP 136/62
--- NOTE | 2019-11-04 20:00 | NUR ---
NURSE NOTES: RECEIVED PATIENT FROM LOU HARGROVE. PATIENT IS AWAKE, AAOX1, ON NC 2L, NO ACUTE DISTRESS NOTED. HAMMER CATH IN PLACE, DRAINING WELL, HAMMER ANCHOR PRESENT. IV ON RIGHT FOREARM INTACT AND PATENT. BED IS LOCKED AND LOW, BED ALARMS ACTIVE, SIDE RAILS UP X2, AND CALL LIGHT IS WITHIN REACH. WILL CONTINUE TO MONITOR.
[2019-11-04] MEDS: Atorvastatin 80mg tab ORAL SCH (20:36)
--- NOTE | 2019-11-04 21:03 | General Progress Note ---
Assessment/Plan Problem List: (1) Sepsis ICD Codes: A41.9 - Sepsis, unspecified organism SNOMED: 38482976 (2) Hypoglycemia ICD Codes: E16.2 - Hypoglycemia, unspecified SNOMED: 911829808 (3) Elevated troponin ICD Codes: R79.89 - Other specified abnormal findings of blood chemistry SNOMED: 019332320, 569197454, 813806684 (4) Renal failure (ARF), acute on chronic ICD Codes: N17.9 - Acute kidney failure, unspecified; N18.9 - Chronic kidney disease, unspecified SNOMED: 918208213 Qualifiers: Qualified Codes: N17.9 - Acute kidney failure, unspecified; N18.3 - Chronic kidney disease, stage 3 (moderate) (5) Hypothyroid ICD Codes: E03.9 - Hypothyroidism, unspecified SNOMED: 46736767 (6) HTN (hypertension) ICD Codes: I10 - Essential (primary) hypertension SNOMED: 25800944 (7) Diabetic nephropathy ICD Codes: E11.21 - Type 2 diabetes mellitus with diabetic nephropathy SNOMED: 403208770 (8) Anemia in chronic kidney disease (CKD) ICD Codes: N18.9 - Chronic kidney disease, unspecified; D63.1 - Anemia in chronic kidney disease SNOMED: 624689387 Assessment/Plan: elevated trop ftt poor appetiti still lethargic hypoglycemia improved uti cri check lytes poor candidate for surgical intervention sepsis ams Subjective ROS Limited/Unobtainable: Yes Allergies: Coded Allergies: No Known Allergies (Unverified , 10/07/17) Objective Last 24 Hour Vital Signs Date Time Temp Pulse Resp B/P (MAP) Pulse Ox O2 Delivery O2 Flow Rate FiO2 11/04/19 20:38 59 146/73 11/04/19 20:38 59 146/73 11/04/19 19:53 97 Nasal Cannula 2.0 28 11/04/19 16:00 98.5 59 17 131/79 (96) 100 11/04/19 12:00 97.5 56 18 140/72 (94) 100 11/04/19 09:54 70 123/59 11/04/19 09:54 70 123/59 11/04/19 09:00 Nasal Cannula 3.0 11/04/19 08:11 70 20 100 Room Air 21 68 20 98 11/04/19 08:11 98 Room Air 21 2/18/20 08:00 98.8 70 18 123/59 (80) 99 11/04/19 04:00 97.9 71 22 148/68 (94) 97 11/04/19 00:56 77 16 100 Room Air 21 72 18 94 11/04/19 00:00 97.0 82 22 120/74 (89) 98 11/03/19 21:24 Nasal Cannula 4.0 Intake and Output 11/03/19 11/04/19 19:00 07:00 Intake Total 240 ml Output Total 600 ml Balance -360 ml Intake Oral 240 ml Output Urine Total 600 ml # Bowel Movements 2 Laboratory Tests 11/04/19 06:30: White Blood Count 12.5H, Red Blood Count 2.93L, Hemoglobin 9.3L, Hematocrit 28.0L, Mean Corpuscular Volume 95, Mean Corpuscular Hemoglobin 31.8H, Mean Corpuscular Hemoglobin Concent 33.4, Red Cell Distribution Width 12.9, Platelet Count 352, Mean Platelet Volume 5.9L, Neutrophils (%) (Auto) 75.9H, Lymphocytes (%) (Auto) 13.9L, Monocytes (%) (Auto) 5.6, Eosinophils (%) (Auto) 3.9H, Basophils (%) (Auto) 0.7, Sodium Level 147H, Potassium Level 3.9, Chloride Level 111H, Carbon Dioxide Level 27, Anion Gap 9, Blood Urea Nitrogen 40H, Creatinine 2.6H, Estimat Glomerular Filtration Rate 25.0, Glucose Level 96, Uric Acid 7.9H, Calcium Level 8.4L, Phosphorus Level 3.7, Magnesium Level 1.8, Total Bilirubin 0.2, Aspartate Amino Transf (AST/SGOT) 28, Alanine Aminotransferase (ALT/SGPT) 19, Alkaline Phosphatase 83, C-Reactive Protein, Quantitative 4.5H, Pro-B-Type Natriuretic Peptide 81439L, Total Protein 6.4, Albumin 2.5L, Globulin 3.9, Albumin/Globulin Ratio 0.6L Height (Feet): 5 Height (Inches): 10.00 Weight (Pounds): 218 General Appearance: lethargic, confused Respiratory/Chest: lungs clear Oni Schilling MD Nov 04, 2019 21:03
--- NOTE | 2019-11-04 22:36 | General Progress Note ---
Assessment/Plan Assessment/Plan: Assessment - Anorexia, appears to be related to food choices - Azotemia - anemia - Functional decline - Elevated Troponin - hypothyroid Recommendations - Remeron trial - calorie count - liquid shakes / supplements - family to bring home foods - check OB --> negative Subjective Allergies: Coded Allergies: No Known Allergies (Unverified , 10/07/17) Subjective Feels OK no abd complaints prefers liquids po (+) BM Objective Last 24 Hour Vital Signs Date Time Temp Pulse Resp B/P (MAP) Pulse Ox O2 Delivery O2 Flow Rate FiO2 11/04/19 20:38 59 146/73 11/04/19 20:38 59 146/73 11/04/19 19:53 97 Nasal Cannula 2.0 28 11/04/19 16:00 98.5 59 17 131/79 (96) 100 11/04/19 12:00 97.5 56 18 140/72 (94) 100 11/04/19 09:54 70 123/59 11/04/19 09:54 70 123/59 11/04/19 09:00 Nasal Cannula 3.0 11/04/19 08:11 70 20 100 Room Air 21 68 20 98 11/04/19 08:11 98 Room Air 21 11/04/19 08:00 98.8 70 18 123/59 (80) 99 11/04/19 04:00 97.9 71 22 148/68 (94) 97 11/04/19 00:56 77 16 100 Room Air 21 72 18 94 11/04/19 00:00 97.0 82 22 120/74 (89) 98 Intake and Output 11/03/19 11/04/19 19:00 07:00 Intake Total 240 ml Output Total 600 ml Balance -360 ml Intake Oral 240 ml Output Urine Total 600 ml # Bowel Movements 2 Laboratory Tests 11/04/19 06:30: White Blood Count 12.5H, Red Blood Count 2.93L, Hemoglobin 9.3L, Hematocrit 28.0L, Mean Corpuscular Volume 95, Mean Corpuscular Hemoglobin 31.8H, Mean Corpuscular Hemoglobin Concent 33.4, Red Cell Distribution Width 12.9, Platelet Count 352, Mean Platelet Volume 5.9L, Neutrophils (%) (Auto) 75.9H, Lymphocytes (%) (Auto) 13.9L, Monocytes (%) (Auto) 5.6, Eosinophils (%) (Auto) 3.9H, Basophils (%) (Auto) 0.7, Sodium Level 147H, Potassium Level 3.9, Chloride Level 111H, Carbon Dioxide Level 27, Anion Gap 9, Blood Urea Nitrogen 40H, Creatinine 2.6H, Estimat Glomerular Filtration Rate 25.0, Glucose Level 96, Uric Acid 7.9H, Calcium Level 8.4L, Phosphorus Level 3.7, Magnesium Level 1.8, Total Bilirubin 0.2, Aspartate Amino Transf (AST/SGOT) 28, Alanine Aminotransferase (ALT/SGPT) 19, Alkaline Phosphatase 83, C-Reactive Protein, Quantitative 4.5H, Pro-B-Type Natriuretic Peptide 04719P, Total Protein 6.4, Albumin 2.5L, Globulin 3.9, Albumin/Globulin Ratio 0.6L Height (Feet): 5 Height (Inches): 10.00 Weight (Pounds): 218 Objective WDWN NCAT supple CTA RR abd soft no edema Naheed Welch MD Nov 04, 2019 22:36
[2019-11-05] VITALS: BP 125/57
[2019-11-05 04:00] VITALS: BP 136/63
--- NOTE | 2019-11-05 06:56 | General Progress Note ---
Assessment/Plan Problem List: (1) Hypothyroid ICD Codes: E03.9 - Hypothyroidism, unspecified SNOMED: 22915087 (2) HTN (hypertension) ICD Codes: I10 - Essential (primary) hypertension SNOMED: 43908627 (3) Diabetic nephropathy ICD Codes: E11.21 - Type 2 diabetes mellitus with diabetic nephropathy SNOMED: 362545072 (4) Hypoglycemia ICD Codes: E16.2 - Hypoglycemia, unspecified SNOMED: 727123573 (5) Renal failure (ARF), acute on chronic ICD Codes: N17.9 - Acute kidney failure, unspecified; N18.9 - Chronic kidney disease, unspecified SNOMED: 235584465 Qualifiers: Qualified Codes: N17.9 - Acute kidney failure, unspecified; N18.3 - Chronic kidney disease, stage 3 (moderate) Assessment/Plan: continue LT4 150 mcg daily reduce frequency of glucose monitoring from every 4 hours to ac / hs no need for scheduled diabetic medications hypoglycemia protocol in order Subjective ROS Limited/Unobtainable: Yes Allergies: Coded Allergies: No Known Allergies (Unverified , 10/07/17) Subjective events noted interval notes reviewed glucose values are stable without hypoglycemia Item Value Date Time Bedside Blood Glucose 113 mg/dl 11/04/19 2100 Bedside Blood Glucose 98 mg/dl 11/04/19 1605 Bedside Blood Glucose 79 mg/dl 11/04/19 1138 Bedside Blood Glucose 91 mg/dl 11/04/19 0441 Bedside Blood Glucose 95 mg/dl 11/04/19 0030 Objective Last 24 Hour Vital Signs Date Time Temp Pulse Resp B/P (MAP) Pulse Ox O2 Delivery O2 Flow Rate FiO2 11/05/19 04:00 98.6 61 20 136/63 (87) 96 11/05/19 00:00 98.4 57 20 125/57 (79) 96 11/04/19 21:00 Nasal Cannula 3.0 11/04/19 20:38 59 146/73 11/04/19 20:38 59 146/73 11/04/19 20:00 98.9 59 18 136/62 (86) 97 11/04/19 19:53 97 Nasal Cannula 2.0 28 11/04/19 16:00 98.5 59 17 131/79 (96) 100 11/04/19 12:00 97.5 56 18 140/72 (94) 100 11/04/19 09:54 70 123/59 11/04/19 09:54 70 123/59 11/04/19 09:00 Nasal Cannula 3.0 11/04/19 08:11 70 20 100 Room Air 21 68 20 98 11/04/19 08:11 98 Room Air 21 11/04/19 08:00 98.8 70 18 123/59 (80) 99 Intake and Output 11/04/19 11/05/19 19:00 07:00 Intake Total 550 ml Output Total 1250 ml Balance -700 ml Intake Oral 150 ml Other 400 ml Output Urine Total 1250 ml # Bowel Movements 1 Height (Feet): 5 Height (Inches): 10.00 Weight (Pounds): 218 General Appearance: no apparent distress Neck: normal alignment Cardiovascular: normal rate Respiratory/Chest: lungs clear Abdomen: normal bowel sounds Objective Current Medications Medications (Trade) Dose Ordered Sig/Leon Route PRN Reason Start Time Stop Time Status Last Admin Dose Admin Acetaminophen (Tylenol) 500 mg Q4H PRN ORAL Mild Pain/Temp > 100.5 11/01/19 06:15 11/23/19 06:14 Amlodipine Besylate (Norvasc) 5 mg Q12HR ORAL 11/01/19 09:00 11/24/19 20:59 11/04/19 20:38 Aspirin (Ecotrin) 81 mg DAILY ORAL 11/01/19 09:00 11/24/19 08:59 11/03/19 09:20 Atorvastatin Calcium (Lipitor) 80 mg BEDTIME ORAL 11/01/19 21:00 11/23/19 20:59 11/04/19 20:36 Clopidogrel Bisulfate (Plavix) 75 mg DAILY ORAL 11/01/19 09:00 11/24/19 08:59 11/03/19 09:20 Dextrose (Dextrose 50%) 25 ml Q30M PRN IV Hypoglycemia 11/01/19 06:15 11/23/19 05:14 Dextrose (Dextrose 50%) 50 ml Q30M PRN IV Hypoglycemia 11/01/19 06:15 11/23/19 05:14 Docusate Sodium (Colace) 100 mg TWICE A DAY ORAL 11/01/19 09:00 11/23/19 17:59 11/03/19 09:20 Finasteride (Proscar) 5 mg DAILY ORAL 11/01/19 09:00 11/24/19 08:59 11/03/19 09:20 Furosemide (Lasix) 40 mg DAILY ORAL 11/01/19 09:00 11/24/19 09:59 11/03/19 09:20 Haloperidol Lactate (Haldol) 5 mg Q6H PRN IM Agitation 11/03/19 08:30 12/03/19 08:29 11/03/19 09:17 Levothyroxine Sodium (Synthroid) 150 mcg DAILY@0630 ORAL 11/01/19 06:30 11/23/19 06:29 11/05/19 06:29 Lorazepam (Ativan) 2 mg Q4H PRN ORAL For Anxiety 11/03/19 14:11 11/10/19 14:10 11/03/19 17:42 Metoprolol Tartrate (Lopressor) 25 mg Q12HR ORAL 11/01/19 09:00 11/23/19 10:59 11/03/19 20:58 Mirtazapine (Remeron) 15 mg BEDTIME ORAL 11/03/19 21:00 11/27/19 20:59 11/04/19 20:36 Pantoprazole (Protonix) 40 mg DAILY ORAL 11/02/19 09:00 12/02/19 08:59 11/03/19 09:21 Tamsulosin HCl (Flomax) 0.4 mg BID ORAL 11/01/19 09:00 11/23/19 20:59 11/03/19 17:24 Aureliano Estrada MD Nov 05, 2019 06:56
--- NOTE | 2019-11-05 07:13 | NUR ---
NURSE NOTES: received report from Janine,RN. patient in bed. alert, oriented to name. verbally responsive. no respiratory distress noted via NC 2l. no pain at this time. IV on RFA22 saline lock. intact. f/c draining. inserted 10/30 for retention. contact isolation. PPE at all times. waiting clearing by GT for discharge. bed in the lowest position and locked. call light within reach. alarm on. will continue to provide plan of care.
--- NOTE | 2019-11-05 07:47 | Pulmonology Progress Note ---
Assessment/Plan Assessment/Plan IMPRESSION: 1. Mild pulmonary vascular congestion. 2. Hypertension. 3. Diabetes mellitus. 4. Previous CVA. 5. Hypoglycemia. 6. Hypoxemia. 7. Epistaxis 8. Anorexia DISCUSSION: Continue low flow O2 Continue diuresis OK to dc back to snf. Janes Cox M.D. Subjective Interval Events: None new Constitutional: Reports: no symptoms HEENT: Repors: no symptoms Respiratory: Reports: no symptoms Cardiovascular: Reports: no symptoms Allergies: Coded Allergies: No Known Allergies (Unverified , 10/07/17) Objective Last 24 Hour Vital Signs Date Time Temp Pulse Resp B/P (MAP) Pulse Ox O2 Delivery O2 Flow Rate FiO2 11/05/19 04:00 98.6 61 20 136/63 (87) 96 11/05/19 00:00 98.4 57 20 125/57 (79) 96 11/04/19 21:00 Nasal Cannula 3.0 11/04/19 20:38 59 146/73 11/04/19 20:38 59 146/73 11/04/19 20:00 98.9 59 18 136/62 (86) 97 11/04/19 19:53 97 Nasal Cannula 2.0 28 11/04/19 16:00 98.5 59 17 131/79 (96) 100 11/04/19 12:00 97.5 56 18 140/72 (94) 100 11/04/19 09:54 70 123/59 11/04/19 09:54 70 123/59 11/04/19 09:00 Nasal Cannula 3.0 11/04/19 08:11 70 20 100 Room Air 21 68 20 98 11/04/19 08:11 98 Room Air 21 11/04/19 08:00 98.8 70 18 123/59 (80) 99 Intake and Output 11/04/19 11/05/19 19:00 07:00 Intake Total 550 ml Output Total 1250 ml Balance -700 ml Intake Oral 150 ml Other 400 ml Output Urine Total 1250 ml # Bowel Movements 1 General Appearance: no acute distress HEENT: normocephalic Respiratory/Chest: chest wall non-tender, lungs clear Cardiovascular: normal peripheral pulses, normal rate Abdomen: normal bowel sounds Current Medications Medications (Trade) Dose Ordered Sig/Leon Route PRN Reason Start Time Stop Time Status Last Admin Dose Admin Acetaminophen (Tylenol) 500 mg Q4H PRN ORAL Mild Pain/Temp > 100.5 11/01/19 06:15 11/23/19 06:14 Amlodipine Besylate (Norvasc) 5 mg Q12HR ORAL 11/01/19 09:00 11/24/19 20:59 11/04/19 20:38 Aspirin (Ecotrin) 81 mg DAILY ORAL 11/01/19 09:00 11/24/19 08:59 11/03/19 09:20 Atorvastatin Calcium (Lipitor) 80 mg BEDTIME ORAL 11/01/19 21:00 11/23/19 20:59 11/04/19 20:36 Clopidogrel Bisulfate (Plavix) 75 mg DAILY ORAL 11/01/19 09:00 11/24/19 08:59 11/03/19 09:20 Dextrose (Dextrose 50%) 25 ml Q30M PRN IV Hypoglycemia 11/01/19 06:15 11/23/19 05:14 Dextrose (Dextrose 50%) 50 ml Q30M PRN IV Hypoglycemia 11/01/19 06:15 11/23/19 05:14 Docusate Sodium (Colace) 100 mg TWICE A DAY ORAL 11/01/19 09:00 11/23/19 17:59 11/03/19 09:20 Finasteride (Proscar) 5 mg DAILY ORAL 11/01/19 09:00 11/24/19 08:59 11/03/19 09:20 Furosemide (Lasix) 40 mg DAILY ORAL 11/01/19 09:00 11/24/19 09:59 11/03/19 09:20 Haloperidol Lactate (Haldol) 5 mg Q6H PRN IM Agitation 11/03/19 08:30 12/03/19 08:29 11/03/19 09:17 Levothyroxine Sodium (Synthroid) 150 mcg DAILY@0630 ORAL 11/01/19 06:30 11/23/19 06:29 11/05/19 06:29 Lorazepam (Ativan) 2 mg Q4H PRN ORAL For Anxiety 11/03/19 14:11 11/10/19 14:10 11/03/19 17:42 Metoprolol Tartrate (Lopressor) 25 mg Q12HR ORAL 11/01/19 09:00 11/23/19 10:59 11/03/19 20:58 Mirtazapine (Remeron) 15 mg BEDTIME ORAL 11/03/19 21:00 11/27/19 20:59 11/04/19 20:36 Pantoprazole (Protonix) 40 mg DAILY ORAL 11/02/19 09:00 12/02/19 08:59 11/03/19 09:21 Tamsulosin HCl (Flomax) 0.4 mg BID ORAL 11/01/19 09:00 11/23/19 20:59 11/03/19 17:24 Janes Cox MD Nov 05, 2019 07:47
--- NOTE | 2019-11-05 08:02 | NUR ---
HAND-OFF: Report given to LOU HORTON .
[2019-11-05 08:17] VITALS: BP 143/72
[2019-11-05] MEDS: Docusate 100mg cap ORAL SCH (08:26)
[2019-11-05] MEDS: Tamsulosin 0.4mg cap ORAL SCH ×2 (08:26→17:36)
[2019-11-05] MEDS: Aspirin EC 81mg tab ORAL SCH (08:26)
[2019-11-05] MEDS: Furosemide 40mg tab ORAL SCH (08:27)
--- NOTE | 2019-11-05 08:55 | General Progress Note ---
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 D/w Dr. Hanson and he concurred. Subjective Date patient seen: Nov 05, 2019 Time patient seen: 08:15 - am Allergies: Coded Allergies: No Known Allergies (Unverified , 10/07/17) Subjective REVIEW OF SYSTEMS: Denies rash, fever, chills, sweating, dizziness, drowsiness, blurred vision, sore throat, or change in weight. No shortness of breath or chest pain. No nausea, vomiting, diarrhea, or blood in the stool or urine. No bowel or bladder incontinence. No dysuria. SUBJECTIVE: Patient laying in bed denies pain at this time. Has no new complaints. Objective Last 24 Hour Vital Signs Date Time Temp Pulse Resp B/P (MAP) Pulse Ox O2 Delivery O2 Flow Rate FiO2 11/05/19 08:26 61 143/72 11/05/19 08:26 61 143/72 11/05/19 08:17 98.6 61 20 143/72 (95) 96 11/05/19 04:00 98.6 61 20 136/63 (87) 96 11/05/19 00:00 98.4 57 20 125/57 (79) 96 11/04/19 21:00 Nasal Cannula 3.0 11/04/19 20:38 59 146/73 11/04/19 20:38 59 146/73 11/04/19 20:00 98.9 59 18 136/62 (86) 97 11/04/19 19:53 97 Nasal Cannula 2.0 28 11/04/19 16:00 98.5 59 17 131/79 (96) 100 11/04/19 12:00 97.5 56 18 140/72 (94) 100 11/04/19 09:54 70 123/59 11/04/19 09:54 70 123/59 11/04/19 09:00 Nasal Cannula 3.0 Intake and Output 11/04/19 11/05/19 19:00 07:00 Intake Total 550 ml Output Total 1250 ml Balance -700 ml Intake Oral 150 ml Other 400 ml Output Urine Total 1250 ml # Bowel Movements 1 Height (Feet): 5 Height (Inches): 10.00 Weight (Pounds): 194 Objective GENERAL: Alert, awake, and oriented. LUNGS: Decreased breath sounds bilaterally. HEART: S1 and S2 regular. ABDOMEN: Soft, nontender. EXTREMITIES: No cyanosis. No clubbing. NEURO: No changes. Warren Torres Nov 05, 2019 08:55
--- NOTE | 2019-11-05 09:24 | NUR ---
CASE MANAGEMENT:DISCHARGE PLANNING PATIENT HAS BEEN REFERRED BACK TO [facility] P: [phone] F: [phone] Addendum: 11/05/19 at 1157 by KIESHA MOSS LVN PIN WORKER PER [facility] AT [facility], ACCEPTED TO RETURN [facility]
--- NOTE | 2019-11-05 09:25 | NUR ---
NURSE NOTES: left message to Dr. Welch for clearing dc.
--- NOTE | 2019-11-05 10:25 | NUR ---
NURSE NOTES: patient had a diarrhea once. had a episode of diarrhea on 11/04/19, notified Dr. Welch and waiting for further order.
--- NOTE | 2019-11-05 11:52 | NUR ---
NURSE NOTES: patient had a diarrhea and colace BID. notified Dr. Welch and received order of DC colace. order noted and carried out.
[2019-11-05] MEDS ORDERED: AMLODIPINE BESYL5 MG ORAL (11:57)
--- NOTE | 2019-11-05 11:58 | NUR ---
CASE MANAGEMENT NOTE SPOKE WITH CHARGE NURSE RACHELL AND BEDSIDE NURSE CLIFFORD IN RE TO MD CLEARANCE. PER CLIFFORD BLAKE, PATIENT HAD EPISODE OF DIARRHEA X1 THIS MORNING. DC PENDING CLEARANCE FROM DR. DEMPSEY. STOOL CX PENDING.
[2019-11-05 12:00] VITALS: BP 120/72
[2019-11-05] MEDS ORDERED: LEVOTHYROXINE125 MCG ORAL (12:13)
[2019-11-05] MEDS ORDERED: METOPROLOL TART25 MG ORAL (12:15)
[2019-11-05] MEDS ORDERED: MIRTAZAPINE15 M3 ORAL (12:16)
[2019-11-05] MEDS ORDERED: FLOMAX0.4 MG ORAL (12:17)
[2019-11-05] MEDS ORDERED: PANTOPRAZOLE SO40 MG ORAL (12:17)
[2019-11-05] MEDS ORDERED: FUROSEMIDE40 MG ORAL (12:22)
--- NOTE | 2019-11-05 12:50 | NUR ---
CASE MANAGEMENT:REVIEW SI;PULMONARY CONGESTION. HTN. DM. SEPSIS. 98.9 57 20 143/72 96% 3L NC NO LABS AVAILABLE IS;LASIX PO QD ASA PO QD NORVASC PO Q12 HRS PROTONIX PO QD MED SURG STATUS [facility];[place]
--- NOTE | 2019-11-05 13:01 | Cardiac Electrophysiology PN ---
Assessment/Plan Assessment/Plan 1. NSTEMI. Type 2. Troponin peak 1.8. FU troponins range between 0.8 and 1.2 and no CP. ECG no acute ischemia and Echo Nl EF. Due to renal failure. Has Old NC in July 2019 with troponin of more than 24. EF of 60%. On Lopressor 25 bid, aspirin, Plavix and Lipitor 80 2. Questionable atrial fibrillation or DVT, remained in sinus rhythm. Off tele now 3. HTN On Lopressor 25 bid, Norvasc 5 bid and Lasix 40 daily 4. History of CVA with left hemiplegia.On Plavix 5. Nose bleed. Stopped. FU Dr. Brown 6. Fever. 7. Hypothyroidism, on Synthroid. 8. Agitation DW RN Subjective Subjective DC planning in progress. No cardiac issues overnight. Objective Last 24 Hour Vital Signs Date Time Temp Pulse Resp B/P (MAP) Pulse Ox O2 Delivery O2 Flow Rate FiO2 11/05/19 12:00 97.8 73 19 120/72 (88) 100 11/05/19 09:00 Nasal Cannula 3.0 11/05/19 08:26 61 143/72 11/05/19 08:26 61 143/72 11/05/19 08:17 98.6 61 20 143/72 (95) 96 11/05/19 04:00 98.6 61 20 136/63 (87) 96 11/05/19 00:00 98.4 57 20 125/57 (79) 96 11/04/19 21:00 Nasal Cannula 3.0 11/04/19 20:38 59 146/73 11/04/19 20:38 59 146/73 11/04/19 20:00 98.9 59 18 136/62 (86) 97 11/04/19 19:53 97 Nasal Cannula 2.0 28 11/04/19 16:00 98.5 59 17 131/79 (96) 100 Intake and Output 11/04/19 11/05/19 19:00 07:00 Intake Total 550 ml Output Total 1250 ml Balance -700 ml Intake Oral 150 ml Other 400 ml Output Urine Total 1250 ml # Bowel Movements 1 Objective HEAD AND NECK: No JVD. LUNGS: Clear. CARDIOVASCULAR: Regular S1 and S2 with no gallop. ABDOMEN: Soft. EXTREMITIES: Left hemiplegia with contraction of left arm. Castillo Bazan MD Nov 05, 2019 13:01
--- NOTE | 2019-11-05 14:07 | Infectious Diseases Prog Note ---
Assessment/Plan Assessment/Plan IMPRESSION: Fever, resolved Urinary tract infection with Proteus Diabetes mellitus with hyperglycemia, anemia, acute renal failure, chronic kidney disease, BPH, hypertension, hypothyroidism. VRE carrier NSTEMI Encephalopathy RECOMMENDATION: Observe off antibiotic Repeated CXR : resolved congestion Subjective ROS Limited/Unobtainable: Yes Constitutional: Denies: fever Gastrointestinal/Abdominal: Reports: diarrhea, other - one time Allergies: Coded Allergies: No Known Allergies (Unverified , 10/07/17) Objective Vital Signs Last 24 Hour Vital Signs Date Time Temp Pulse Resp B/P (MAP) Pulse Ox O2 Delivery O2 Flow Rate FiO2 11/05/19 12:00 97.8 73 19 120/72 (88) 100 11/05/19 09:00 Nasal Cannula 3.0 11/05/19 08:45 96 Nasal Cannula 2.0 28 11/05/19 08:26 61 143/72 11/05/19 08:26 61 143/72 11/05/19 08:17 98.6 61 20 143/72 (95) 96 11/05/19 04:00 98.6 61 20 136/63 (87) 96 11/05/19 00:00 98.4 57 20 125/57 (79) 96 11/04/19 21:00 Nasal Cannula 3.0 11/04/19 20:38 59 146/73 11/04/19 20:38 59 146/73 11/04/19 20:00 98.9 59 18 136/62 (86) 97 11/04/19 19:53 97 Nasal Cannula 2.0 28 11/04/19 16:00 98.5 59 17 131/79 (96) 100 Height (Feet): 5 Height (Inches): 10.00 Weight (Pounds): 194 General Appearance: no acute distress HEENT: mucous membranes moist Respiratory/Chest: lungs clear Cardiovascular: normal rate Abdomen: soft, non tender Extremities: no edema Neurologic/Psychiatric: other - sleeping Current Medications Medications (Trade) Dose Ordered Sig/Leon Route PRN Reason Start Time Stop Time Status Last Admin Dose Admin Acetaminophen (Tylenol) 500 mg Q4H PRN ORAL Mild Pain/Temp > 100.5 11/01/19 06:15 11/23/19 06:14 Amlodipine Besylate (Norvasc) 5 mg Q12HR ORAL 11/01/19 09:00 11/24/19 20:59 11/05/19 08:26 Aspirin (Ecotrin) 81 mg DAILY ORAL 11/01/19 09:00 11/24/19 08:59 11/05/19 08:26 Atorvastatin Calcium (Lipitor) 80 mg BEDTIME ORAL 11/01/19 21:00 11/23/19 20:59 11/04/19 20:36 Clopidogrel Bisulfate (Plavix) 75 mg DAILY ORAL 11/01/19 09:00 11/24/19 08:59 11/05/19 08:26 Dextrose (Dextrose 50%) 25 ml Q30M PRN IV Hypoglycemia 11/01/19 06:15 11/23/19 05:14 Dextrose (Dextrose 50%) 50 ml Q30M PRN IV Hypoglycemia 11/01/19 06:15 11/23/19 05:14 Finasteride (Proscar) 5 mg DAILY ORAL 11/01/19 09:00 11/24/19 08:59 11/05/19 08:26 Furosemide (Lasix) 40 mg DAILY ORAL 11/01/19 09:00 11/24/19 09:59 11/05/19 08:27 Haloperidol Lactate (Haldol) 5 mg Q6H PRN IM Agitation 11/03/19 08:30 12/03/19 08:29 11/03/19 09:17 Levothyroxine Sodium (Synthroid) 150 mcg DAILY@0630 ORAL 11/01/19 06:30 11/23/19 06:29 11/05/19 06:29 Lorazepam (Ativan) 2 mg Q4H PRN ORAL For Anxiety 11/03/19 14:11 11/10/19 14:10 11/03/19 17:42 Metoprolol Tartrate (Lopressor) 25 mg Q12HR ORAL 11/01/19 09:00 11/23/19 10:59 11/05/19 08:26 Mirtazapine (Remeron) 15 mg BEDTIME ORAL 11/03/19 21:00 11/27/19 20:59 11/04/19 20:36 Pantoprazole (Protonix) 40 mg DAILY ORAL 11/02/19 09:00 12/02/19 08:59 11/05/19 08:26 Tamsulosin HCl (Flomax) 0.4 mg BID ORAL 11/01/19 09:00 11/23/19 20:59 11/05/19 08:26 Troy Yeboah MD Nov 05, 2019 14:07
--- NOTE | 2019-11-05 14:46 | NUR ---
INSURANCE REVIEW HAVE BEEN FAXED TO: [facility] REF# [id number] #[phone] FAX#[phone] REVIEWS/CLINICALS
--- NOTE | 2019-11-05 14:52 | Nephrology Progress Note ---
Assessment/Plan Problem List: (1) Renal failure (ARF), acute on chronic Assessment: Cr slightly higher (2) Elevated troponin (3) Hypoglycemia (4) Hypothyroid (5) HTN (hypertension) (6) Diabetic nephropathy (7) Anemia in chronic kidney disease (CKD) Assessment Urinary retention Renal failure (ARF), acute on chronic Anemia: s/p GI Bleed on anticoagulation h/o Hypertension Elevated troponin h/o Hypothyroid DM- Hypoglycemia on presentation h/o UTI Plan no labs today Reinsert Kamara BP management IV Iron watch HR 2D Echo NOTED Kidney MARCO A NOTED Avoid nephrotoxics antibiotics Per orders / per consultants Subjective ROS Limited/Unobtainable: No Constitutional: Reports: malaise Objective Objective Last 24 Hour Vital Signs Date Time Temp Pulse Resp B/P (MAP) Pulse Ox O2 Delivery O2 Flow Rate FiO2 11/05/19 12:00 97.8 73 19 120/72 (88) 100 11/05/19 09:00 Nasal Cannula 3.0 11/05/19 08:45 96 Nasal Cannula 2.0 28 11/05/19 08:26 61 143/72 11/05/19 08:26 61 143/72 11/05/19 08:17 98.6 61 20 143/72 (95) 96 11/05/19 04:00 98.6 61 20 136/63 (87) 96 11/05/19 00:00 98.4 57 20 125/57 (79) 96 11/04/19 21:00 Nasal Cannula 3.0 11/04/19 20:38 59 146/73 11/04/19 20:38 59 146/73 11/04/19 20:00 98.9 59 18 136/62 (86) 97 11/04/19 19:53 97 Nasal Cannula 2.0 28 11/04/19 16:00 98.5 59 17 131/79 (96) 100 Intake and Output 11/04/19 11/05/19 19:00 07:00 Intake Total 550 ml Output Total 1250 ml Balance -700 ml Intake Oral 150 ml Other 400 ml Output Urine Total 1250 ml # Bowel Movements 1 Height (Feet): 5 Height (Inches): 10.00 Weight (Pounds): 194 General Appearance: no apparent distress Cardiovascular: normal rate Respiratory/Chest: decreased breath sounds Abdomen: soft Objective no change Rafa Farr MD Nov 05, 2019 14:52
--- NOTE | 2019-11-05 15:26 | Hematology/Onc Progress Note ---
Assessment/Plan Assessment/Plan Assessment and Recs: # Anemia due to underlying GI bleed -- patient presents with hematemesis before and now with barb --> as per GI eval, may need endoscopy --> has been started on ppi --> cea has been ordered --> Hgb goal >7. Transfuse prn. --> Will sign consent if necessary --> Epogen not started. IRON IV x 5 days completed --> Consider octreotide gtt as per gi eval --> Medications have been reviewed --> Hgb 8.8 -->8.6-->8.7-->8.9-->8.5-->9.1->9.3 # Coagulation defect/Bleeding, multifactorial usually related to poor PO intake versus medications, in this case related to coumadin --> administer Vitamin K if patient is bleeding or FFP if the INR is >10 --> hold off on ffp unless active procedure/bleeding, first begin with vit K 10 --> mixing study as needed --> HAVE STOPPED COUMADIN --> per cards, hold off at this time, is aware of afib hx # Anemia due to folic acid deficiency/iron deficiency as well --> prior folic acid<5 --> recheck levels # Elevated troponin, rising, ?nstemi --> aware --> anticoag as per his recs # FTT -- failure to thrive --> mirtazapine per gi # Renal failure (ARF), acute on chronic --> per renal Dr. Farr # UTI --> abx as needed --> abx: ceftriaxone # Dvt ppx on scds now --> on plavix and asa The timing of this note does not necessarily reflect the time of the patient was seen. Greatly appreciate consultation. Subjective Constitutional: Denies: no symptoms, chills, fever, malaise, weakness, other HEENT: Denies: no symptoms, eye pain, blurred vision, tearing, double vision, ear pain, ear discharge, nose pain, nose congestion, throat pain, throat swelling, mouth pain, mouth swelling, other Cardiovascular: Denies: no symptoms, chest pain, edema, irregular heart rate, lightheadedness, palpitations, syncope, other Respiratory: Denies: no symptoms, cough, shortness of breath, SOB with excertion, SOB at rest, sputum, wheezing, other Gastrointestinal/Abdominal: Denies: no symptoms, abdomen distended, abdominal pain, black stools, tarry stools, blood in stool, constipated, diarrhea, difficulty swallowing, nausea, poor appetite, poor fluid intake, rectal bleeding , vomiting, other Genitourinary: Denies: no symptoms, burning, discharge, frequency, flank pain, hematuria, incontinence, pain, urgency, other Endocrine: Denies: no symptoms, excessive sweating, flushing, intolerance to cold, intolerance to heat, increased hunger, increased thirst, increased urine, unexplained weight gain, unexplained weight loss, other Allergies: Coded Allergies: No Known Allergies (Unverified , 10/07/17) Subjective 10/27: awake, venous duplex negative, iv iron, nose bleed 10/28: is awake, alert on 2l flow, no bleeding, coags noted 10/29: no major changes, seen by pulm, coag midly elevated, hgb in the 8s 10/30: no events, no bleeding or chills, no major changes, hgb 8.7 10/31: to be transferred to med surg, ct head negative, h/h stable, on ceftriaxone 11/02: awake and alert, no acute events, labs reviewed, nc 11/03: labs still pending from am, remains agitated and anxious, no bleedng, on ctx 11/04: no major events, no bleeding, no night sweats Objective Objective Current Medications Medications (Trade) Dose Ordered Sig/Leon Route PRN Reason Start Time Stop Time Status Last Admin Dose Admin Acetaminophen (Tylenol) 500 mg Q4H PRN ORAL Mild Pain/Temp > 100.5 11/01/19 06:15 11/23/19 06:14 Amlodipine Besylate (Norvasc) 5 mg Q12HR ORAL 11/01/19 09:00 11/24/19 20:59 11/05/19 08:26 Aspirin (Ecotrin) 81 mg DAILY ORAL 11/01/19 09:00 11/24/19 08:59 11/05/19 08:26 Atorvastatin Calcium (Lipitor) 80 mg BEDTIME ORAL 11/01/19 21:00 11/23/19 20:59 11/04/19 20:36 Clopidogrel Bisulfate (Plavix) 75 mg DAILY ORAL 11/01/19 09:00 11/24/19 08:59 11/05/19 08:26 Dextrose (Dextrose 50%) 25 ml Q30M PRN IV Hypoglycemia 11/01/19 06:15 11/23/19 05:14 Dextrose (Dextrose 50%) 50 ml Q30M PRN IV Hypoglycemia 11/01/19 06:15 11/23/19 05:14 Finasteride (Proscar) 5 mg DAILY ORAL 11/01/19 09:00 11/24/19 08:59 11/05/19 08:26 Furosemide (Lasix) 40 mg DAILY ORAL 11/01/19 09:00 11/24/19 09:59 11/05/19 08:27 Haloperidol Lactate (Haldol) 5 mg Q6H PRN IM Agitation 11/03/19 08:30 12/03/19 08:29 11/03/19 09:17 Levothyroxine Sodium (Synthroid) 150 mcg DAILY@0630 ORAL 11/01/19 06:30 11/23/19 06:29 11/05/19 06:29 Lorazepam (Ativan) 2 mg Q4H PRN ORAL For Anxiety 11/03/19 14:11 11/10/19 14:10 11/03/19 17:42 Metoprolol Tartrate (Lopressor) 25 mg Q12HR ORAL 11/01/19 09:00 11/23/19 10:59 11/05/19 08:26 Mirtazapine (Remeron) 15 mg BEDTIME ORAL 11/03/19 21:00 11/27/19 20:59 11/04/19 20:36 Pantoprazole (Protonix) 40 mg DAILY ORAL 11/02/19 09:00 12/02/19 08:59 11/05/19 08:26 Tamsulosin HCl (Flomax) 0.4 mg BID ORAL 11/01/19 09:00 11/23/19 20:59 11/05/19 08:26 Last 24 Hour Vital Signs Date Time Temp Pulse Resp B/P (MAP) Pulse Ox O2 Delivery O2 Flow Rate FiO2 11/05/19 12:00 97.8 73 19 120/72 (88) 100 11/05/19 09:00 Nasal Cannula 3.0 11/05/19 08:45 96 Nasal Cannula 2.0 28 11/05/19 08:26 61 143/72 11/05/19 08:26 61 143/72 11/05/19 08:17 98.6 61 20 143/72 (95) 96 11/05/19 04:00 98.6 61 20 136/63 (87) 96 11/05/19 00:00 98.4 57 20 125/57 (79) 96 11/04/19 21:00 Nasal Cannula 3.0 11/04/19 20:38 59 146/73 11/04/19 20:38 59 146/73 11/04/19 20:00 98.9 59 18 136/62 (86) 97 11/04/19 19:53 97 Nasal Cannula 2.0 28 11/04/19 16:00 98.5 59 17 131/79 (96) 100 11/04/19 12:00 97.5 56 18 140/72 (94) 100 11/04/19 09:54 70 123/59 11/04/19 09:54 70 123/59 11/04/19 09:00 Nasal Cannula 3.0 11/04/19 08:11 70 20 100 Room Air 21 68 20 98 11/04/19 08:11 98 Room Air 21 11/04/19 08:00 98.8 70 18 123/59 (80) 99 11/04/19 04:00 97.9 71 22 148/68 (94) 97 11/04/19 00:56 77 16 100 Room Air 21 72 18 94 11/04/19 00:00 97.0 82 22 120/74 (89) 98 11/03/19 21:24 Nasal Cannula 4.0 11/03/19 20:58 78 150/81 11/03/19 20:57 78 150/81 11/03/19 20:00 97.9 77 20 150/81 (104) 100 11/03/19 19:27 95 Room Air 21 11/03/19 19:27 73 18 99 Room Air 21 69 15 93 11/03/19 16:00 98.4 70 20 158/74 (102) 95 Intake and Output 11/04/19 11/05/19 19:00 07:00 Intake Total 550 ml Output Total 1250 ml Balance -700 ml Intake Oral 150 ml Other 400 ml Output Urine Total 1250 ml # Bowel Movements 1 Labs Test 11/03/19 11:40 11/04/19 06:30 White Blood Count 9.6 K/UL (4.8-10.8) 12.5 K/UL (4.8-10.8) Red Blood Count 2.86 M/UL (4.70-6.10) 2.93 M/UL (4.70-6.10) Hemoglobin 9.1 G/DL (14.2-18.0) 9.3 G/DL (14.2-18.0) Hematocrit 27.4 % (42.0-52.0) 28.0 % (42.0-52.0) Mean Corpuscular Volume 96 FL (80-99) 95 FL (80-99) Mean Corpuscular Hemoglobin 31.9 PG (27.0-31.0) 31.8 PG (27.0-31.0) Mean Corpuscular Hemoglobin Concent 33.2 G/DL (32.0-36.0) 33.4 G/DL (32.0-36.0) Red Cell Distribution Width 12.9 % (11.6-14.8) 12.9 % (11.6-14.8) Platelet Count 303 K/UL (150-450) 352 K/UL (150-450) Mean Platelet Volume 5.9 FL (6.5-10.1) 5.9 FL (6.5-10.1) Neutrophils (%) (Auto) 73.2 % (45.0-75.0) 75.9 % (45.0-75.0) Lymphocytes (%) (Auto) 12.1 % (20.0-45.0) 13.9 % (20.0-45.0) Monocytes (%) (Auto) 6.3 % (1.0-10.0) 5.6 % (1.0-10.0) Eosinophils (%) (Auto) 7.6 % (0.0-3.0) 3.9 % (0.0-3.0) Basophils (%) (Auto) 0.9 % (0.0-2.0) 0.7 % (0.0-2.0) Sodium Level 147 MMOL/L (136-145) Potassium Level 3.9 MMOL/L (3.5-5.1) Chloride Level 111 MMOL/L (98-107) Carbon Dioxide Level 27 MMOL/L (21-32) Anion Gap 9 mmol/L (5-15) Blood Urea Nitrogen 40 mg/dL (7-18) Creatinine 2.6 MG/DL (0.55-1.30) Estimat Glomerular Filtration Rate 25.0 mL/min (>60) Glucose Level 96 MG/DL (74-106) Uric Acid 7.9 MG/DL (2.6-7.2) Calcium Level 8.4 MG/DL (8.5-10.1) Phosphorus Level 3.7 MG/DL (2.5-4.9) Magnesium Level 1.8 MG/DL (1.8-2.4) Total Bilirubin 0.2 MG/DL (0.2-1.0) Aspartate Amino Transf (AST/SGOT) 28 U/L (15-37) Alanine Aminotransferase (ALT/SGPT) 19 U/L (12-78) Alkaline Phosphatase 83 U/L (46-116) C-Reactive Protein, Quantitative 4.5 mg/dL (0.00-0.90) Pro-B-Type Natriuretic Peptide 00765 pg/mL (0-125) Total Protein 6.4 G/DL (6.4-8.2) Albumin 2.5 G/DL (3.4-5.0) Globulin 3.9 g/dL Albumin/Globulin Ratio 0.6 (1.0-2.7) Height (Feet): 5 Height (Inches): 10.00 Weight (Pounds): 194 Objective PE Vitals: reviewed General Appearance: NAD + chronically ill HEENT: normocephalic, atraumatic ++ biconjunctival hemorrhage-> improved Neck: non-tender, normal alignment Respiratory/Chest: nromal breath sounds bilaterally, NC+ Cardiovascular/Chest: normal peripheral pulses, normal rate Abdomen: normal bowel sounds, soft, nontender Extremities: normal range of motion, Right arm skin tear, left sided weaknness NEURO: ++ left sided weakness Nate Whyte MD Nov 05, 2019 15:26
[2019-11-05 16:00] VITALS: BP 142/61
--- NOTE | 2019-11-05 16:00 | NUR ---
*-*DISCHARGE PLANNED*-* PATIENT IS BEING DISCHARGED TO: [facility] P: [phone] F: [phone] #114.[facility] S/W ADDI [id number] ETA 5:30PM/ 1730PM
[2019-11-05 18:30] LABS: BASOPHILS % (AUTO) 0.6 % (0.0-2.0); EOSINOPHILS % (AUTO) 6.2 % (0.0-3.0); HEMATOCRIT 28.6 % (42.0-52.0); HEMOGLOBIN 9.4 G/DL (14.2-18.0); LYMPHOCYTES % (AUTO) 13.3 % (20.0-45.0); MEAN CORPUSCULAR VOLUME 95 FL (80-99); MONOCYTES % (AUTO) 5.5 % (1.0-10.0); NEUTROPHILS % (AUTO) 74.4 % (45.0-75.0); PLATELET COUNT 352 K/UL (150-450); RED BLOOD COUNT 3.01 M/UL (4.70-6.10); RED CELL DISTRIBUTION WIDTH 12.9 % (11.6-14.8); WHITE BLOOD COUNT 12.1 K/UL (4.8-10.8)
--- NOTE | 2019-11-05 19:27 | NUR ---
HAND-OFF: Report given to LOU Mehta.
[2019-11-05 20:00] VITALS: BP 142/63
--- NOTE | 2019-11-05 20:02 | NUR ---
HAND-OFF: Report given to LOU HORTON.
--- NOTE | 2019-11-05 20:11 | NUR ---
NURSE NOTES: RECEIVED PATIENT FROM LOU HORTON. PATIENT IS AWAKE, AAOX2, ON NC 2L, NO ACUTE DISTRESS NOTED. HAMMER CATH IN PLACE, DRAINING WELL, HAMMER ANCHOR PRESENT. IV ON RIGHT FOREARM INTACT AND PATENT. BED IS LOCKED AND LOW, BED ALARMS ACTIVE, SIDE RAILS UP X2, AND CALL LIGHT IS WITHIN REACH. WILL CONTINUE TO MONITOR.
--- NOTE | 2019-11-05 20:22 | General Progress Note ---
Assessment/Plan Assessment/Plan: Assessment - Anorexia, appears to be related to food choices - Azotemia - anemia - Functional decline - Elevated Troponin - hypothyroid - diarrhea, r/o C Diff Recommendations - Remeron trial - calorie count - liquid shakes / supplements - family to bring home foods - check OB --> negative - check C Diff Subjective Allergies: Coded Allergies: No Known Allergies (Unverified , 10/07/17) Subjective Feels OK d/w RN diarrhea noted yesterday and today Objective Last 24 Hour Vital Signs Date Time Temp Pulse Resp B/P (MAP) Pulse Ox O2 Delivery O2 Flow Rate FiO2 11/05/19 16:00 98.9 53 18 142/61 (88) 98 11/05/19 12:00 97.8 73 19 120/72 (88) 100 11/05/19 09:00 Nasal Cannula 3.0 11/05/19 08:45 96 Nasal Cannula 2.0 28 11/05/19 08:26 61 143/72 11/05/19 08:26 61 143/72 11/05/19 08:17 98.6 61 20 143/72 (95) 96 11/05/19 04:00 98.6 61 20 136/63 (87) 96 11/05/19 00:00 98.4 57 20 125/57 (79) 96 11/04/19 21:00 Nasal Cannula 3.0 11/04/19 20:38 59 146/73 11/04/19 20:38 59 146/73 Intake and Output 11/04/19 11/05/19 19:00 07:00 Intake Total 550 ml Output Total 1250 ml Balance -700 ml Intake Oral 150 ml Other 400 ml Output Urine Total 1250 ml # Bowel Movements 1 Laboratory Tests 11/05/19 17:55: White Blood Count 12.1H, Red Blood Count 3.01L, Hemoglobin 9.4L, Hematocrit 28.6L, Mean Corpuscular Volume 95, Mean Corpuscular Hemoglobin 31.3H, Mean Corpuscular Hemoglobin Concent 33.0, Red Cell Distribution Width 12.9, Platelet Count 352, Mean Platelet Volume 6.4L, Neutrophils (%) (Auto) 74.4, Lymphocytes ( %) (Auto) 13.3L, Monocytes (%) (Auto) 5.5, Eosinophils (%) (Auto) 6.2H, Basophils (%) (Auto) 0.6 Height (Feet): 5 Height (Inches): 10.00 Weight (Pounds): 194 Objective WDWN NCAT supple CTA RR abd soft no edema Naheed Welch MD Nov 05, 2019 20:22
[2019-11-05] MEDS: Atorvastatin 80mg tab ORAL SCH (22:08)
[2019-11-06] VITALS: BP 113/57
--- NOTE | 2019-11-06 02:16 | Progress Note ---
DATE: 11/05/2019 SUBJECTIVE: The patient is doing well. Much calmer. Manageable. No behavior issues noted. Compliant with care. MENTAL STATUS EXAMINATION: The patient is alert and oriented times self, place, and situation. Mood is neutral. Affect is flat. Thought process is concrete. Thought content, no suicidal or homicidal ideation. ASSESSMENT: Stable. PLAN: 1. We will continue current medications. 2. Provide the patient with reality orientation and supportive therapy. Gómez Cooper M.D. DR: ROMERO JOB#: [id number] CC:
[2019-11-06 04:00] VITALS: BP 141/73
--- NOTE | 2019-11-06 07:21 | NUR ---
HAND-OFF: Report given to LOU HORTON.
--- NOTE | 2019-11-06 07:32 | NUR ---
NURSE NOTES: received report from Janine,RN. patient in bed, alert. confused. verbally responsive, no respiratory distress noted with 2l o2 via NC. no pain at this time. f/c draining. yellow. IV on RFA22 saline intact. encourage patient po intake. no nose bleed. no diarrhea at this time. contact isolation. PPE at all times. bed in the lowest position and locked. call light within reach. will continue to provide plan of care.
[2019-11-06 08:00] VITALS: BP 130/71
[2019-11-06] MEDS: Aspirin EC 81mg tab ORAL SCH (08:53)
[2019-11-06] MEDS: Tamsulosin 0.4mg cap ORAL SCH ×2 (08:53→18:31)
[2019-11-06] MEDS: Furosemide 40mg tab ORAL SCH (08:54)
--- NOTE | 2019-11-06 08:59 | Nephrology Progress Note ---
Assessment/Plan Problem List: (1) Renal failure (ARF), acute on chronic Assessment: Cr slightly higher (2) Elevated troponin (3) Hypoglycemia (4) Hypothyroid (5) HTN (hypertension) (6) Diabetic nephropathy (7) Anemia in chronic kidney disease (CKD) Assessment Urinary retention Renal failure (ARF), acute on chronic Anemia: s/p GI Bleed on anticoagulation h/o Hypertension Elevated troponin h/o Hypothyroid DM- Hypoglycemia on presentation h/o UTI Plan no labs today Reinsert Kamara BP management IV Iron watch HR 2D Echo NOTED Kidney MARCO A NOTED Avoid nephrotoxics antibiotics Per orders / per consultants Subjective ROS Limited/Unobtainable: No Constitutional: Reports: malaise Objective Objective Last 24 Hour Vital Signs Date Time Temp Pulse Resp B/P (MAP) Pulse Ox O2 Delivery O2 Flow Rate FiO2 11/06/19 08:00 98.6 83 22 130/71 (90) 98 11/06/19 04:00 97.8 59 20 141/73 (95) 97 11/06/19 00:00 98.2 78 24 113/57 (75) 95 11/05/19 22:08 52 142/63 11/05/19 21:00 Nasal Cannula 3.0 11/05/19 21:00 52 142/63 11/05/19 20:50 95 Nasal Cannula 2.0 28 11/05/19 20:00 98.0 52 20 142/63 (89) 97 11/05/19 16:00 98.9 53 18 142/61 (88) 98 11/05/19 12:00 97.8 73 19 120/72 (88) 100 11/05/19 09:00 Nasal Cannula 3.0 Intake and Output 11/05/19 11/06/19 19:00 07:00 Intake Total 200 ml Output Total 900 ml 900 ml Balance -700 ml -900 ml Intake Oral 200 ml Output Urine Total 900 ml 900 ml # Bowel Movements 1 Laboratory Tests 11/05/19 17:55: White Blood Count 12.1H, Red Blood Count 3.01L, Hemoglobin 9.4L, Hematocrit 28.6L, Mean Corpuscular Volume 95, Mean Corpuscular Hemoglobin 31.3H, Mean Corpuscular Hemoglobin Concent 33.0, Red Cell Distribution Width 12.9, Platelet Count 352, Mean Platelet Volume 6.4L, Neutrophils (%) (Auto) 74.4, Lymphocytes ( %) (Auto) 13.3L, Monocytes (%) (Auto) 5.5, Eosinophils (%) (Auto) 6.2H, Basophils (%) (Auto) 0.6 Height (Feet): 5 Height (Inches): 10.00 Weight (Pounds): 194 General Appearance: no apparent distress Cardiovascular: arrhythmia Respiratory/Chest: decreased breath sounds Abdomen: soft Objective no change Rafa Farr MD Nov 06, 2019 08:59
--- NOTE | 2019-11-06 09:00 | General Progress Note ---
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 D/w Dr. Hanson and he concurred. Subjective Date patient seen: Nov 06, 2019 Time patient seen: 08:15 - am Allergies: Coded Allergies: No Known Allergies (Unverified , 10/07/17) Subjective REVIEW OF SYSTEMS: Denies rash, fever, chills, sweating, dizziness, drowsiness, blurred vision, sore throat, or change in weight. No shortness of breath or chest pain. No nausea, vomiting, diarrhea, or blood in the stool or urine. No bowel or bladder incontinence. No dysuria. SUBJECTIVE: Patient showing no signs of pain or distress. He is doing well and reports no pain at this time. Objective Last 24 Hour Vital Signs Date Time Temp Pulse Resp B/P (MAP) Pulse Ox O2 Delivery O2 Flow Rate FiO2 11/06/19 08:53 83 130/71 11/06/19 08:53 83 130/71 11/06/19 08:00 98.6 83 22 130/71 (90) 98 11/06/19 04:00 97.8 59 20 141/73 (95) 97 11/06/19 00:00 98.2 78 24 113/57 (75) 95 11/05/19 22:08 52 142/63 11/05/19 21:00 Nasal Cannula 3.0 11/05/19 21:00 52 142/63 11/05/19 20:50 95 Nasal Cannula 2.0 28 11/05/19 20:00 98.0 52 20 142/63 (89) 97 11/05/19 16:00 98.9 53 18 142/61 (88) 98 11/05/19 12:00 97.8 73 19 120/72 (88) 100 Intake and Output 11/05/19 11/06/19 19:00 07:00 Intake Total 200 ml Output Total 900 ml 900 ml Balance -700 ml -900 ml Intake Oral 200 ml Output Urine Total 900 ml 900 ml # Bowel Movements 1 Laboratory Tests 11/05/19 17:55: White Blood Count 12.1H, Red Blood Count 3.01L, Hemoglobin 9.4L, Hematocrit 28.6L, Mean Corpuscular Volume 95, Mean Corpuscular Hemoglobin 31.3H, Mean Corpuscular Hemoglobin Concent 33.0, Red Cell Distribution Width 12.9, Platelet Count 352, Mean Platelet Volume 6.4L, Neutrophils (%) (Auto) 74.4, Lymphocytes ( %) (Auto) 13.3L, Monocytes (%) (Auto) 5.5, Eosinophils (%) (Auto) 6.2H, Basophils (%) (Auto) 0.6 Height (Feet): 5 Height (Inches): 10.00 Weight (Pounds): 194 Objective GENERAL: Alert, awake, and oriented. LUNGS: Decreased breath sounds bilaterally. HEART: S1 and S2 regular. ABDOMEN: Soft, nontender. EXTREMITIES: No cyanosis. No clubbing. NEURO: No changes. Warren Torres Nov 06, 2019 09:00
--- NOTE | 2019-11-06 09:16 | NUR ---
NURSE NOTES: received call from Tami/Microbiology. Patient positive C-diff.Notified Dr. Pina. waiting for further order.
--- NOTE | 2019-11-06 09:30 | NUR ---
NURSE NOTES: seen by Dr. Welch. New order of contact bleach isolation. start Vancomycin 125 PO QID for 14days. order noted and carried out.
--- NOTE | 2019-11-06 09:52 | General Progress Note ---
Assessment/Plan Assessment/Plan: IM PROGRESS NOTE COVERING FOR DR. MONK Assessment and Recs: # Elevated troponin, rising, ?nstemi --> aware --> anticoag as per his recs # c diff+++ # FTT -- failure to thrive --> mirtazapine per gi # Renal failure (ARF), acute on chronic --> per renal Dr. Farr # UTI --> abx as needed --> abx: ceftriaxone --> fc # Anemia due to underlying GI bleed -- patient presents with hematemesis before and now with barb --> as per GI eval, may need endoscopy --> has been started on ppi --> cea has been ordered --> Hgb goal >7. Transfuse prn. --> Will sign consent if necessary --> Epogen not started. IRON IV x 5 days completed --> Consider octreotide gtt as per gi eval --> Medications have been reviewed --> Hgb 8.8 -->8.6-->8.7-->8.9-->8.5-->9.1-->9.3-->9.4 # Coagulation defect/Bleeding, multifactorial usually related to poor PO intake versus medications, in this case related to coumadin --> administer Vitamin K if patient is bleeding or FFP if the INR is >10 --> hold off on ffp unless active procedure/bleeding, first begin with vit K 10 --> mixing study as needed --> HAVE STOPPED COUMADIN --> per cards, hold off at this time, is aware of afib hx # Anemia due to folic acid deficiency/iron deficiency as well --> prior folic acid<5 --> recheck levels # Dvt ppx on scds now --> on plavix and asa The timing of this note does not necessarily reflect the time of the patient was seen. Greatly appreciate consultation. Subjective Allergies: Coded Allergies: No Known Allergies (Unverified , 10/07/17) Subjective 10/27: awake, venous duplex negative, iv iron, nose bleed 10/28: is awake, alert on 2l flow, no bleeding, coags noted 10/29: no major changes, seen by pulm, coag midly elevated, hgb in the 8s 10/30: no events, no bleeding or chills, no major changes, hgb 8.7 10/31: to be transferred to [facility], ct head negative, h/h stable, on ceftriaxone 11/02: awake and alert, no acute events, labs reviewed, nc 11/03: labs still pending from am, remains agitated and anxious, no bleedng, on ctx 11/04: no major events, no bleeding, no night sweats 11/06: confused, c diff++, nc 2l, h/h stable Objective Last 24 Hour Vital Signs Date Time Temp Pulse Resp B/P (MAP) Pulse Ox O2 Delivery O2 Flow Rate FiO2 11/06/19 08:53 83 130/71 11/06/19 08:53 83 130/71 11/06/19 08:00 98.6 83 22 130/71 (90) 98 11/06/19 04:00 97.8 59 20 141/73 (95) 97 11/06/19 00:00 98.2 78 24 113/57 (75) 95 11/05/19 22:08 52 142/63 11/05/19 21:00 Nasal Cannula 3.0 11/05/19 21:00 52 142/63 11/05/19 20:50 95 Nasal Cannula 2.0 28 11/05/19 20:00 98.0 52 20 142/63 (89) 97 11/05/19 16:00 98.9 53 18 142/61 (88) 98 11/05/19 12:00 97.8 73 19 120/72 (88) 100 Intake and Output 11/05/19 11/06/19 19:00 07:00 Intake Total 200 ml Output Total 900 ml 900 ml Balance -700 ml -900 ml Intake Oral 200 ml Output Urine Total 900 ml 900 ml # Bowel Movements 1 Laboratory Tests 11/05/19 17:55: White Blood Count 12.1H, Red Blood Count 3.01L, Hemoglobin 9.4L, Hematocrit 28.6L, Mean Corpuscular Volume 95, Mean Corpuscular Hemoglobin 31.3H, Mean Corpuscular Hemoglobin Concent 33.0, Red Cell Distribution Width 12.9, Platelet Count 352, Mean Platelet Volume 6.4L, Neutrophils (%) (Auto) 74.4, Lymphocytes ( %) (Auto) 13.3L, Monocytes (%) (Auto) 5.5, Eosinophils (%) (Auto) 6.2H, Basophils (%) (Auto) 0.6 Height (Feet): 5 Height (Inches): 10.00 Weight (Pounds): 194 Objective PE Vitals: reviewed General Appearance: NAD + chronically ill HEENT: normocephalic, atraumatic ++ biconjunctival hemorrhage-> improved Neck: non-tender, normal alignment Respiratory/Chest: nromal breath sounds bilaterally, NC+ Cardiovascular/Chest: normal peripheral pulses, normal rate Abdomen: normal bowel sounds, soft, nontender Extremities: normal range of motion, Right arm skin tear, left sided weaknness NEURO: ++ left sided weakness Nate Whyte MD Nov 06, 2019 09:52
--- NOTE | 2019-11-06 10:42 | General Progress Note ---
Assessment/Plan Assessment/Plan: Assessment - C Diff, diarrhea - Anorexia - Azotemia - anemia - Functional decline - Elevated Troponin - hypothyroid Recommendations - PO vanco - Remeron trial - calorie count - liquid shakes / supplements - family to bring home foods - check OB --> negative Subjective Allergies: Coded Allergies: No Known Allergies (Unverified , 10/07/17) Subjective BM diarrhea x 2 yesterday C Diff (+) d/w RN Objective Last 24 Hour Vital Signs Date Time Temp Pulse Resp B/P (MAP) Pulse Ox O2 Delivery O2 Flow Rate FiO2 11/06/19 08:53 83 130/71 11/06/19 08:53 83 130/71 11/06/19 08:00 98.6 83 22 130/71 (90) 98 11/06/19 04:00 97.8 59 20 141/73 (95) 97 11/06/19 00:00 98.2 78 24 113/57 (75) 95 11/05/19 22:08 52 142/63 11/05/19 21:00 Nasal Cannula 3.0 11/05/19 21:00 52 142/63 11/05/19 20:50 95 Nasal Cannula 2.0 28 11/05/19 20:00 98.0 52 20 142/63 (89) 97 11/05/19 16:00 98.9 53 18 142/61 (88) 98 11/05/19 12:00 97.8 73 19 120/72 (88) 100 Intake and Output 11/05/19 11/06/19 19:00 07:00 Intake Total 200 ml Output Total 900 ml 900 ml Balance -700 ml -900 ml Intake Oral 200 ml Output Urine Total 900 ml 900 ml # Bowel Movements 1 Laboratory Tests 11/05/19 17:55: White Blood Count 12.1H, Red Blood Count 3.01L, Hemoglobin 9.4L, Hematocrit 28.6L, Mean Corpuscular Volume 95, Mean Corpuscular Hemoglobin 31.3H, Mean Corpuscular Hemoglobin Concent 33.0, Red Cell Distribution Width 12.9, Platelet Count 352, Mean Platelet Volume 6.4L, Neutrophils (%) (Auto) 74.4, Lymphocytes ( %) (Auto) 13.3L, Monocytes (%) (Auto) 5.5, Eosinophils (%) (Auto) 6.2H, Basophils (%) (Auto) 0.6 Height (Feet): 5 Height (Inches): 10.00 Weight (Pounds): 194 Objective WDWN NCAT supple CTA RR abd soft no edema Naheed Welch MD Nov 06, 2019 10:42
--- NOTE | 2019-11-06 10:55 | Infectious Diseases Prog Note ---
Assessment/Plan Assessment/Plan IMPRESSION: C. difficile diarrhea Fever, resolved Urinary tract infection with Proteus Diabetes mellitus with hyperglycemia, anemia, acute renal failure, chronic kidney disease, BPH, hypertension, hypothyroidism. VRE carrier NSTEMI Encephalopathy RECOMMENDATION: Continue PO Vancomycin Repeated CXR : resolved congestion Subjective ROS Limited/Unobtainable: Yes Constitutional: Reports: no symptoms Respiratory: Reports: dry cough Gastrointestinal/Abdominal: Reports: diarrhea Allergies: Coded Allergies: No Known Allergies (Unverified , 10/07/17) Objective Vital Signs Last 24 Hour Vital Signs Date Time Temp Pulse Resp B/P (MAP) Pulse Ox O2 Delivery O2 Flow Rate FiO2 11/06/19 08:53 83 130/71 11/06/19 08:53 83 130/71 11/06/19 08:00 98.6 83 22 130/71 (90) 98 11/06/19 04:00 97.8 59 20 141/73 (95) 97 11/06/19 00:00 98.2 78 24 113/57 (75) 95 11/05/19 22:08 52 142/63 11/05/19 21:00 Nasal Cannula 3.0 11/05/19 21:00 52 142/63 11/05/19 20:50 95 Nasal Cannula 2.0 28 11/05/19 20:00 98.0 52 20 142/63 (89) 97 11/05/19 16:00 98.9 53 18 142/61 (88) 98 11/05/19 12:00 97.8 73 19 120/72 (88) 100 Height (Feet): 5 Height (Inches): 10.00 Weight (Pounds): 194 General Appearance: no acute distress HEENT: mucous membranes moist Respiratory/Chest: lungs clear Cardiovascular: normal rate Abdomen: soft, non tender Extremities: other - mild pedal edema Neurologic/Psychiatric: alert, responsive Microbiology Date/Time Source Procedure Growth Status 11/05/19 22:00 Stool Clostridium difficile Toxin Assay - Final Complete Laboratory Tests Test 11/05/19 17:55 White Blood Count 12.1 K/UL (4.8-10.8) H Red Blood Count 3.01 M/UL (4.70-6.10) L Hemoglobin 9.4 G/DL (14.2-18.0) L Hematocrit 28.6 % (42.0-52.0) L Mean Corpuscular Volume 95 FL (80-99) Mean Corpuscular Hemoglobin 31.3 PG (27.0-31.0) H Mean Corpuscular Hemoglobin Concent 33.0 G/DL (32.0-36.0) Red Cell Distribution Width 12.9 % (11.6-14.8) Platelet Count 352 K/UL (150-450) Mean Platelet Volume 6.4 FL (6.5-10.1) L Neutrophils (%) (Auto) 74.4 % (45.0-75.0) Lymphocytes (%) (Auto) 13.3 % (20.0-45.0) L Monocytes (%) (Auto) 5.5 % (1.0-10.0) Eosinophils (%) (Auto) 6.2 % (0.0-3.0) H Basophils (%) (Auto) 0.6 % (0.0-2.0) Current Medications Medications (Trade) Dose Ordered Sig/Leon Route PRN Reason Start Time Stop Time Status Last Admin Dose Admin Acetaminophen (Tylenol) 500 mg Q4H PRN ORAL Mild Pain/Temp > 100.5 11/01/19 06:15 11/23/19 06:14 Amlodipine Besylate (Norvasc) 5 mg Q12HR ORAL 11/01/19 09:00 11/24/19 20:59 11/06/19 08:53 Aspirin (Ecotrin) 81 mg DAILY ORAL 11/01/19 09:00 11/24/19 08:59 11/06/19 08:53 Atorvastatin Calcium (Lipitor) 80 mg BEDTIME ORAL 11/01/19 21:00 11/23/19 20:59 11/05/19 22:08 Clopidogrel Bisulfate (Plavix) 75 mg DAILY ORAL 11/01/19 09:00 11/24/19 08:59 11/06/19 08:53 Dextrose (Dextrose 50%) 25 ml Q30M PRN IV Hypoglycemia 11/01/19 06:15 11/23/19 05:14 Dextrose (Dextrose 50%) 50 ml Q30M PRN IV Hypoglycemia 11/01/19 06:15 11/23/19 05:14 Finasteride (Proscar) 5 mg DAILY ORAL 11/01/19 09:00 11/24/19 08:59 11/06/19 08:53 Furosemide (Lasix) 40 mg DAILY ORAL 11/01/19 09:00 11/24/19 09:59 11/06/19 08:54 Haloperidol Lactate (Haldol) 5 mg Q6H PRN IM Agitation 11/03/19 08:30 12/03/19 08:29 11/03/19 09:17 Levothyroxine Sodium (Synthroid) 150 mcg DAILY@0630 ORAL 11/01/19 06:30 11/23/19 06:29 11/06/19 05:55 Lorazepam (Ativan) 2 mg Q4H PRN ORAL For Anxiety 11/03/19 14:11 11/10/19 14:10 11/03/19 17:42 Metoprolol Tartrate (Lopressor) 25 mg Q12HR ORAL 11/01/19 09:00 11/23/19 10:59 11/06/19 08:53 Mirtazapine (Remeron) 15 mg BEDTIME ORAL 11/03/19 21:00 11/27/19 20:59 11/05/19 22:08 Pantoprazole (Protonix) 40 mg DAILY ORAL 11/02/19 09:00 12/02/19 08:59 11/06/19 08:53 Tamsulosin HCl (Flomax) 0.4 mg BID ORAL 11/01/19 09:00 11/23/19 20:59 11/06/19 08:53 Vancomycin HCl (Firvanq) 125 mg FOUR TIMES A DAY ORAL 11/06/19 13:00 11/20/19 12:59 Troy Yeboah MD Nov 06, 2019 10:55
--- NOTE | 2019-11-06 11:17 | NUR ---
CASE MANAGEMENT:REVIEW SI;C-DIFF. ENCEPHALOPATHY. UTI. 98.6 52 24 142/62 95% 3L NC NO LABS AVAILABLE IS;VANCOMYCIN PO QID PROTONIX PO QD LASIX PO QD SYNTROID. PO QD MED SURG STATUS DCP;FROM [facility]
[2019-11-06 12:00] VITALS: BP 128/75
[2019-11-06] MEDS: Vancomycin oral 125mg/2.5ml ORAL SCH ×3 (13:46→20:43)
[2019-11-06 16:00] VITALS: BP 138/75
--- NOTE | 2019-11-06 16:39 | NUR ---
ST NOTES: Service Date:11/04/19 SWALLOW STATUS: THE PATIENT IS SEEN FOR DYSPHAGIA. HE IS COMPLAINING OF DISLIKING THE FOOD (ON SOFT CHEW DIET AND THIN LIQUIDS). HE DENIES ANY PROBLEMS WITH SWALLOWING AND REFUSED ANY PO TRIALS OF GLUCERNA, LIQUID, AND MASTICATED SOLIDS. NO REPORTED S/S OF ASPIRATION DURING MEALS BY STAFF. GOALS FOR INTAKE NOT CONSISTENTLY MET ONLY 25-50%. PER RD: Diet LIBERALIZED REGULAR DIET W/ POOR PO/ texture per HEMODIALYSIS RN Recommendation #1 * Monitor for hypoglycemia w/ poor PO, snacks TID in b/w meals added Recommendation #2 * Liberalized regular diet w/ poor PO Recommendation #3 -> Low Na/ CCHO MED when PO intake consistently >50% Recommendation #4 * Pt refused HPN -> now agrees, Glucerna (220kcal/10g prot each) TID added Recommendation #5 8oz 2% milk TID w/ meals added per pt request (190kcal/10g prot each) CXR: Date:11/04/19 Findings: The heart is enlarged. The lungs and pleural spaces are clear. Previously demonstrated right infrahilar infiltrate has cleared. Previously reported generalized interstitial congestion has improved and largely resolved. Impression: Interim resolution of previously demonstrated interstitial congestion. Stable cardiomegaly. GOALS MET FOR STAFF EDUCATED/TRAINED IN POSTED ASPIRATION PRECAUTIONS. PATIENT WOULD BENEFIT FROM A MOD BARIUM SWALLOW STUDY DUE TO SILENT ASPIRATION RISK (HAD LUNG INFILTRATE) AND CVA DX. PLAN: CONTINUE WITH CURRENT DIET/LIQUIDS WITH POSTED ASPIRATION PRECAUTIONS CONSIDER MODIFIED BARIUM SWALLOW STUDY IP OR OP IF DC
--- NOTE | 2019-11-06 17:40 | Cardiac Electrophysiology PN ---
Assessment/Plan Assessment/Plan 1. NSTEMI. Type 2. Troponin peak 1.8. FU troponins range between 0.8 and 1.2 and no CP. ECG no acute ischemia and Echo Nl EF. Due to renal failure. Has Old [place] in July 2019 with troponin of more than 24. EF of 60%. On Lopressor 25 bid, aspirin, Plavix and Lipitor 80 2. Questionable atrial fibrillation or DVT, remained in sinus rhythm. Off tele now 3. HTN On Lopressor 25 bid, Norvasc 5 bid and Lasix 40 daily 4. History of CVA with left hemiplegia.On Plavix 5. Nose bleed. Stopped. FU Dr. Brown 6. Fever and C Diff. Started n PO Vanco by ID. 7. Hypothyroidism, on Synthroid. 8. Agitation DW RN Subjective Subjective Is now positive for C Diff. Started on Po Vanco. No cardiac issues overnight. Objective Last 24 Hour Vital Signs Date Time Temp Pulse Resp B/P (MAP) Pulse Ox O2 Delivery O2 Flow Rate FiO2 11/06/19 16:00 98.5 86 20 138/75 (96) 99 11/06/19 12:00 98.4 80 22 128/75 (92) 97 11/06/19 09:00 Nasal Cannula 3.0 11/06/19 08:53 83 130/71 11/06/19 08:53 83 130/71 11/06/19 08:00 98.6 83 22 130/71 (90) 98 11/06/19 04:00 97.8 59 20 141/73 (95) 97 11/06/19 00:00 98.2 78 24 113/57 (75) 95 11/05/19 22:08 52 142/63 11/05/19 21:00 Nasal Cannula 3.0 11/05/19 21:00 52 142/63 11/05/19 20:50 95 Nasal Cannula 2.0 28 11/05/19 20:00 98.0 52 20 142/63 (89) 97 Intake and Output 11/05/19 11/06/19 19:00 07:00 Intake Total 200 ml Output Total 900 ml 900 ml Balance -700 ml -900 ml Intake Oral 200 ml Output Urine Total 900 ml 900 ml # Bowel Movements 1 Laboratory Tests Test 11/05/19 17:55 White Blood Count 12.1 K/UL (4.8-10.8) H Red Blood Count 3.01 M/UL (4.70-6.10) L Hemoglobin 9.4 G/DL (14.2-18.0) L Hematocrit 28.6 % (42.0-52.0) L Mean Corpuscular Volume 95 FL (80-99) Mean Corpuscular Hemoglobin 31.3 PG (27.0-31.0) H Mean Corpuscular Hemoglobin Concent 33.0 G/DL (32.0-36.0) Red Cell Distribution Width 12.9 % (11.6-14.8) Platelet Count 352 K/UL (150-450) Mean Platelet Volume 6.4 FL (6.5-10.1) L Neutrophils (%) (Auto) 74.4 % (45.0-75.0) Lymphocytes (%) (Auto) 13.3 % (20.0-45.0) L Monocytes (%) (Auto) 5.5 % (1.0-10.0) Eosinophils (%) (Auto) 6.2 % (0.0-3.0) H Basophils (%) (Auto) 0.6 % (0.0-2.0) Microbiology Date/Time Source Procedure Growth Status 11/05/19 22:00 Stool Clostridium difficile Toxin Assay - Final Complete Objective HEAD AND NECK: No JVD. LUNGS: Clear. CARDIOVASCULAR: Regular S1 and S2 with no gallop. ABDOMEN: Soft. EXTREMITIES: Left hemiplegia with contraction of left arm. Castillo Bazan MD Nov 06, 2019 17:40
--- NOTE | 2019-11-06 18:35 | Pulmonology Progress Note ---
Assessment/Plan Assessment/Plan IMPRESSION: 1. Mild pulmonary vascular congestion. 2. Hypertension. 3. Diabetes mellitus. 4. Previous CVA. 5. Hypoglycemia. 6. Hypoxemia. 7. Epistaxis 8. Anorexia DISCUSSION: Continue low flow O2 Continue diuresis OK to dc back to snf. noted positive for C. diff. Janes Cox M.D. Subjective Interval Events: states he is feeling well. Constitutional: Reports: no symptoms HEENT: Repors: no symptoms Respiratory: Reports: no symptoms Cardiovascular: Reports: no symptoms Gastrointestinal/Abdominal: Reports: diarrhea Genitourinary: Reports: no symptoms Allergies: Coded Allergies: No Known Allergies (Unverified , 10/07/17) Objective Last 24 Hour Vital Signs Date Time Temp Pulse Resp B/P (MAP) Pulse Ox O2 Delivery O2 Flow Rate FiO2 11/06/19 16:00 98.5 86 20 138/75 (96) 99 11/06/19 12:00 98.4 80 22 128/75 (92) 97 11/06/19 09:00 Nasal Cannula 3.0 11/06/19 08:53 83 130/71 11/06/19 08:53 83 130/71 11/06/19 08:00 98.6 83 22 130/71 (90) 98 11/06/19 04:00 97.8 59 20 141/73 (95) 97 11/06/19 00:00 98.2 78 24 113/57 (75) 95 11/05/19 22:08 52 142/63 11/05/19 21:00 Nasal Cannula 3.0 11/05/19 21:00 52 142/63 11/05/19 20:50 95 Nasal Cannula 2.0 28 11/05/19 20:00 98.0 52 20 142/63 (89) 97 Intake and Output 11/05/19 11/06/19 19:00 07:00 Intake Total 200 ml Output Total 900 ml 900 ml Balance -700 ml -900 ml Intake Oral 200 ml Output Urine Total 900 ml 900 ml # Bowel Movements 1 General Appearance: no acute distress HEENT: normocephalic Respiratory/Chest: chest wall non-tender, lungs clear Cardiovascular: normal peripheral pulses Abdomen: normal bowel sounds Microbiology Date/Time Source Procedure Growth Status 11/05/19 22:00 Stool Clostridium difficile Toxin Assay - Final Complete Current Medications Medications (Trade) Dose Ordered Sig/Leon Route PRN Reason Start Time Stop Time Status Last Admin Dose Admin Acetaminophen (Tylenol) 500 mg Q4H PRN ORAL Mild Pain/Temp > 100.5 11/01/19 06:15 11/23/19 06:14 Amlodipine Besylate (Norvasc) 5 mg Q12HR ORAL 11/01/19 09:00 11/24/19 20:59 11/06/19 08:53 Aspirin (Ecotrin) 81 mg DAILY ORAL 11/01/19 09:00 11/24/19 08:59 11/06/19 08:53 Atorvastatin Calcium (Lipitor) 80 mg BEDTIME ORAL 11/01/19 21:00 11/23/19 20:59 11/05/19 22:08 Clopidogrel Bisulfate (Plavix) 75 mg DAILY ORAL 11/01/19 09:00 11/24/19 08:59 11/06/19 08:53 Dextrose (Dextrose 50%) 25 ml Q30M PRN IV Hypoglycemia 11/01/19 06:15 11/23/19 05:14 Dextrose (Dextrose 50%) 50 ml Q30M PRN IV Hypoglycemia 11/01/19 06:15 11/23/19 05:14 Finasteride (Proscar) 5 mg DAILY ORAL 11/01/19 09:00 11/24/19 08:59 11/06/19 08:53 Furosemide (Lasix) 40 mg DAILY ORAL 11/01/19 09:00 11/24/19 09:59 11/06/19 08:54 Haloperidol Lactate (Haldol) 5 mg Q6H PRN IM Agitation 11/03/19 08:30 12/03/19 08:29 11/03/19 09:17 Levothyroxine Sodium (Synthroid) 150 mcg DAILY@0630 ORAL 11/01/19 06:30 11/23/19 06:29 11/06/19 05:55 Lorazepam (Ativan) 2 mg Q4H PRN ORAL For Anxiety 11/03/19 14:11 11/10/19 14:10 11/03/19 17:42 Metoprolol Tartrate (Lopressor) 25 mg Q12HR ORAL 11/01/19 09:00 11/23/19 10:59 11/06/19 08:53 Mirtazapine (Remeron) 15 mg BEDTIME ORAL 11/03/19 21:00 11/27/19 20:59 11/05/19 22:08 Pantoprazole (Protonix) 40 mg DAILY ORAL 11/02/19 09:00 12/02/19 08:59 11/06/19 08:53 Tamsulosin HCl (Flomax) 0.4 mg BID ORAL 11/01/19 09:00 11/23/19 20:59 11/06/19 18:31 Vancomycin HCl (Firvanq) 125 mg FOUR TIMES A DAY ORAL 11/06/19 13:00 11/20/19 12:59 11/06/19 18:31 Janes Cox MD Nov 06, 2019 18:35
--- NOTE | 2019-11-06 19:26 | NUR ---
HAND-OFF: Report given to LOU Mehta.
[2019-11-06 20:00] VITALS: BP 154/74
[2019-11-06] MEDS: Atorvastatin 80mg tab ORAL SCH (20:42)
[2019-11-07] VITALS: BP 157/75
[2019-11-07] MEDS: LORazepam 1mg tab ORAL PRN ×2 (01:40→17:33)
[2019-11-07] MEDS: Haloperidol 5mg/ml Inj IM PRN (02:48)
--- NOTE | 2019-11-07 03:30 | NUR ---
NURSE NOTES: PATIENT IS AGITATED AND RESTLESS. NOTED TRYING TO GET OUT OF BED AND PULLING AT [employer]. RN REORIENTED PATIENT MULTIPLE TIMES. HALDOL 5MG GIVEN. WILL CONTINUE TO MONITOR.
[2019-11-07 04:00] VITALS: BP 158/62
[2019-11-07 07:03] LABS: BASOPHILS % (AUTO) 1.2 % (0.0-2.0); EOSINOPHILS % (AUTO) 7.6 % (0.0-3.0); HEMATOCRIT 30.4 % (42.0-52.0); LYMPHOCYTES % (AUTO) 16.9 % (20.0-45.0); MEAN CORPUSCULAR VOLUME 94 FL (80-99); MONOCYTES % (AUTO) 6.8 % (1.0-10.0); NEUTROPHILS % (AUTO) 67.5 % (45.0-75.0); PLATELET COUNT 360 K/UL (150-450); RED BLOOD COUNT 3.22 M/UL (4.70-6.10); RED CELL DISTRIBUTION WIDTH 12.9 % (11.6-14.8); WHITE BLOOD COUNT 9.1 K/UL (4.8-10.8)
--- NOTE | 2019-11-07 07:07 | NUR ---
HAND-OFF: Report given to LOU HORTON.
--- NOTE | 2019-11-07 07:09 | General Progress Note ---
Assessment/Plan Problem List: (1) Hypothyroid ICD Codes: E03.9 - Hypothyroidism, unspecified SNOMED: 33383824 (2) HTN (hypertension) ICD Codes: I10 - Essential (primary) hypertension SNOMED: 13251528 (3) Diabetic nephropathy ICD Codes: E11.21 - Type 2 diabetes mellitus with diabetic nephropathy SNOMED: 921057117 (4) Hypoglycemia ICD Codes: E16.2 - Hypoglycemia, unspecified SNOMED: 761800122 (5) Renal failure (ARF), acute on chronic ICD Codes: N17.9 - Acute kidney failure, unspecified; N18.9 - Chronic kidney disease, unspecified SNOMED: 452204189 Qualifiers: Qualified Codes: N17.9 - Acute kidney failure, unspecified; N18.3 - Chronic kidney disease, stage 3 (moderate) Assessment/Plan: continue LT4 150 mcg daily reduce frequency of glucose monitoring from every 4 hours to ac / hs no need for scheduled diabetic medications hypoglycemia protocol in order Subjective Allergies: Coded Allergies: No Known Allergies (Unverified , 10/07/17) Subjective events noted interval notes reviewed glucose values are stable without hypoglycemia Item Value Date Time Bedside Blood Glucose 160 mg/dl H 11/06/19 2100 Bedside Blood Glucose 110 mg/dl 11/06/19 1630 Bedside Blood Glucose 95 mg/dl 11/06/19 1130 Objective Last 24 Hour Vital Signs Date Time Temp Pulse Resp B/P (MAP) Pulse Ox O2 Delivery O2 Flow Rate FiO2 11/07/19 04:00 97.3 65 19 158/62 (94) 96 11/07/19 00:00 97.5 62 17 157/75 (102) 99 11/06/19 21:00 Nasal Cannula 3.0 11/06/19 20:44 59 154/74 11/06/19 20:42 59 138/75 11/06/19 20:00 97.3 59 17 154/74 (100) 100 11/06/19 16:00 98.5 86 20 138/75 (96) 99 11/06/19 12:00 98.4 80 22 128/75 (92) 97 11/06/19 09:00 Nasal Cannula 3.0 11/06/19 08:53 83 130/71 11/06/19 08:53 83 130/71 11/06/19 08:00 98.6 83 22 130/71 (90) 98 Intake and Output 11/06/19 11/07/19 19:00 07:00 Intake Total 1140 ml Output Total 1000 ml 600 ml Balance 140 ml -600 ml Intake Oral 1140 ml Output Urine Total 1000 ml 600 ml Laboratory Tests 11/07/19 05:34: White Blood Count 9.1, Red Blood Count 3.22L, Hemoglobin 10.0L, Hematocrit 30.4L , Mean Corpuscular Volume 94, Mean Corpuscular Hemoglobin 30.9, Mean Corpuscular Hemoglobin Concent 32.8, Red Cell Distribution Width 12.9, Platelet Count 360, Mean Platelet Volume 6.1L, Neutrophils (%) (Auto) 67.5, Lymphocytes ( %) (Auto) 16.9L, Monocytes (%) (Auto) 6.8, Eosinophils (%) (Auto) 7.6H, Basophils (%) (Auto) 1.2, Sodium Level [Pending], Potassium Level [Pending], Chloride Level [Pending], Carbon Dioxide Level [Pending], Blood Urea Nitrogen [ Pending], Creatinine [Pending], Estimat Glomerular Filtration Rate [Pending], Glucose Level [Pending], Uric Acid [Pending], Calcium Level [Pending], Phosphorus Level [Pending], Magnesium Level [Pending], Total Bilirubin [Pending] , Aspartate Amino Transf (AST/SGOT) [Pending], Alanine Aminotransferase (ALT/ SGPT) [Pending], Alkaline Phosphatase [Pending], C-Reactive Protein, Quantitative [Pending], Pro-B-Type Natriuretic Peptide [Pending], Total Protein [Pending], Albumin [Pending], Globulin [Pending] Height (Feet): 5 Height (Inches): 10.00 Weight (Pounds): 194 General Appearance: no apparent distress Neck: normal alignment Cardiovascular: normal rate Respiratory/Chest: lungs clear Objective Current Medications Medications (Trade) Dose Ordered Sig/Leon Route PRN Reason Start Time Stop Time Status Last Admin Dose Admin Acetaminophen (Tylenol) 500 mg Q4H PRN ORAL Mild Pain/Temp > 100.5 11/01/19 06:15 11/23/19 06:14 Amlodipine Besylate (Norvasc) 5 mg Q12HR ORAL 11/01/19 09:00 11/24/19 20:59 11/06/19 20:42 Aspirin (Ecotrin) 81 mg DAILY ORAL 11/01/19 09:00 11/24/19 08:59 11/06/19 08:53 Atorvastatin Calcium (Lipitor) 80 mg BEDTIME ORAL 11/01/19 21:00 11/23/19 20:59 11/06/19 20:42 Clopidogrel Bisulfate (Plavix) 75 mg DAILY ORAL 11/01/19 09:00 11/24/19 08:59 11/06/19 08:53 Dextrose (Dextrose 50%) 25 ml Q30M PRN IV Hypoglycemia 11/01/19 06:15 11/23/19 05:14 Dextrose (Dextrose 50%) 50 ml Q30M PRN IV Hypoglycemia 11/01/19 06:15 11/23/19 05:14 Finasteride (Proscar) 5 mg DAILY ORAL 11/01/19 09:00 11/24/19 08:59 11/06/19 08:53 Furosemide (Lasix) 40 mg DAILY ORAL 11/01/19 09:00 11/24/19 09:59 11/06/19 08:54 Haloperidol Lactate (Haldol) 5 mg Q6H PRN IM Agitation 11/03/19 08:30 12/03/19 08:29 11/07/19 02:48 Levothyroxine Sodium (Synthroid) 150 mcg DAILY@0630 ORAL 11/01/19 06:30 11/23/19 06:29 11/07/19 06:55 Lorazepam (Ativan) 2 mg Q4H PRN ORAL For Anxiety 11/03/19 14:11 11/10/19 14:10 11/07/19 01:40 Metoprolol Tartrate (Lopressor) 25 mg Q12HR ORAL 11/01/19 09:00 11/23/19 10:59 11/06/19 08:53 Mirtazapine (Remeron) 15 mg BEDTIME ORAL 11/03/19 21:00 11/27/19 20:59 11/06/19 20:41 Pantoprazole (Protonix) 40 mg DAILY ORAL 11/02/19 09:00 12/02/19 08:59 11/06/19 08:53 Tamsulosin HCl (Flomax) 0.4 mg BID ORAL 11/01/19 09:00 11/23/19 20:59 11/06/19 18:31 Vancomycin HCl (Firvanq) 125 mg FOUR TIMES A DAY ORAL 11/06/19 13:00 11/20/19 12:59 11/06/19 20:43 Aureliano Estrada MD Nov 07, 2019 07:09
--- NOTE | 2019-11-07 07:26 | NUR ---
NURSE NOTES: received report from LOU Mehta. Patient in bed. sleeping. no respiratory distress noted on @2L via NC. no facial grimacing noted. IV on RFA22g saline lock. intact. F/C draining. yellow. no odor. contact bleach isolation d/t C-diff. PPE at all times. no diarrhea at this time. soft loose stool last night. bed in the lowest position and locked. call light within reach. will continue to provide plan of care.
[2019-11-07 07:38] LABS: ALANINE AMINOTRANSFERASE 23 U/L (12-78); ALBUMIN 2.7 G/DL (3.4-5.0); ALBUMIN/GLOBULIN RATIO 0.6 (1.0-2.7); ALKALINE PHOSPHATASE 94 U/L (46-116); ANION GAP 13 mmol/L (5-15); ASPARTATE AMINO TRANSFERASE 26 U/L (15-37); BILIRUBIN,TOTAL 0.3 MG/DL (0.2-1.0); BLOOD UREA NITROGEN 29 mg/dL (7-18); CALCIUM 8.7 MG/DL (8.5-10.1); CARBON DIOXIDE 24 MMOL/L (21-32); CHLORIDE 108 MMOL/L (98-107); CREATININE 2.4 MG/DL (0.55-1.30); PHOSPHORUS 3.4 MG/DL (2.5-4.9); SODIUM 145 MMOL/L (136-145)
[2019-11-07 08:00] VITALS: BP 131/66
--- NOTE | 2019-11-07 08:59 | General Progress Note ---
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 D/w Dr. Hanson and he concurred. Subjective Date patient seen: Nov 07, 2019 Time patient seen: 08:00 - am Allergies: Coded Allergies: No Known Allergies (Unverified , 10/07/17) Subjective REVIEW OF SYSTEMS: Denies rash, fever, chills, sweating, dizziness, drowsiness, blurred vision, sore throat, or change in weight. No shortness of breath or chest pain. No nausea, vomiting, diarrhea, or blood in the stool or urine. No bowel or bladder incontinence. No dysuria. SUBJECTIVE: Patient is in bed and showing no signs of pain or distress. No new complaints at this time. Objective Last 24 Hour Vital Signs Date Time Temp Pulse Resp B/P (MAP) Pulse Ox O2 Delivery O2 Flow Rate FiO2 11/07/19 08:00 98.0 90 19 131/66 (87) 98 11/07/19 04:00 97.3 65 19 158/62 (94) 96 11/07/19 00:00 97.5 62 17 157/75 (102) 99 11/06/19 21:00 Nasal Cannula 3.0 11/06/19 20:44 59 154/74 11/06/19 20:42 59 138/75 11/06/19 20:00 97.3 59 17 154/74 (100) 100 11/06/19 16:00 98.5 86 20 138/75 (96) 99 11/06/19 12:00 98.4 80 22 128/75 (92) 97 11/06/19 09:00 Nasal Cannula 3.0 Intake and Output 11/06/19 11/07/19 19:00 07:00 Intake Total 1140 ml Output Total 1000 ml 600 ml Balance 140 ml -600 ml Intake Oral 1140 ml Output Urine Total 1000 ml 600 ml Laboratory Tests 11/07/19 05:34: White Blood Count 9.1, Red Blood Count 3.22L, Hemoglobin 10.0L, Hematocrit 30.4L , Mean Corpuscular Volume 94, Mean Corpuscular Hemoglobin 30.9, Mean Corpuscular Hemoglobin Concent 32.8, Red Cell Distribution Width 12.9, Platelet Count 360, Mean Platelet Volume 6.1L, Neutrophils (%) (Auto) 67.5, Lymphocytes ( %) (Auto) 16.9L, Monocytes (%) (Auto) 6.8, Eosinophils (%) (Auto) 7.6H, Basophils (%) (Auto) 1.2, Sodium Level 145, Potassium Level 4.0, Chloride Level 108H, Carbon Dioxide Level 24, Anion Gap 13, Blood Urea Nitrogen 29H, Creatinine 2.4H, Estimat Glomerular Filtration Rate 27.4, Glucose Level 107H, Uric Acid 7.6H, Calcium Level 8.7, Phosphorus Level 3.4, Magnesium Level 1.6L, Total Bilirubin 0.3, Aspartate Amino Transf (AST/SGOT) 26, Alanine Aminotransferase (ALT/SGPT) 23, Alkaline Phosphatase 94, C-Reactive Protein, Quantitative 2.5H, Pro-B-Type Natriuretic Peptide 72742F, Total Protein 7.0, Albumin 2.7L, Globulin 4.3, Albumin/Globulin Ratio 0.6L Height (Feet): 5 Height (Inches): 10.00 Weight (Pounds): 194 Objective GENERAL: Alert, awake, and oriented. LUNGS: Decreased breath sounds bilaterally. HEART: S1 and S2 regular. ABDOMEN: Soft, nontender. EXTREMITIES: No cyanosis. No clubbing. NEURO: No changes. Warren Torres Nov 07, 2019 08:59
[2019-11-07] MEDS: Furosemide 40mg tab ORAL SCH (09:00)
[2019-11-07] MEDS: Tamsulosin 0.4mg cap ORAL SCH ×2 (09:37→17:27)
[2019-11-07] MEDS: Magnesium Oxide 400mg tab ORAL SCH ×2 (09:37→13:28)
[2019-11-07] MEDS: Aspirin EC 81mg tab ORAL SCH (09:37)
[2019-11-07] MEDS: Vancomycin oral 125mg/2.5ml ORAL SCH ×3 (09:37→17:27)
--- NOTE | 2019-11-07 11:05 | Cardiac Electrophysiology PN ---
Assessment/Plan Assessment/Plan 1. NSTEMI. Type 2. Troponin peak 1.8. FU troponins range between 0.8 and 1.2 and no CP. ECG no acute ischemia and Echo Nl EF. Due to renal failure. Has Old [place] in July 2019 with troponin of more than 24. EF of 60%. On Lopressor 25 bid, aspirin, Plavix and Lipitor 80 2. Questionable atrial fibrillation or DVT, remained in sinus rhythm. Off tele now 3. HTN On Lopressor 25 bid, Norvasc 5 bid and Lasix 40 daily 4. History of CVA with left hemiplegia.On Plavix 5. Nose bleed. Stopped. FU Dr. Brown 6. Fever and C Diff. On PO Vanco by ID. 7. Hypothyroidism, on Synthroid. 8. Agitation DW RN Subjective Subjective On Po Vanco for C Diff. . No cardiac issues overnight. No CP Objective Last 24 Hour Vital Signs Date Time Temp Pulse Resp B/P (MAP) Pulse Ox O2 Delivery O2 Flow Rate FiO2 11/07/19 09:37 90 131/66 11/07/19 09:36 90 131/66 11/07/19 09:00 Nasal Cannula 3.0 11/07/19 08:00 98.0 90 19 131/66 (87) 98 11/07/19 04:00 97.3 65 19 158/62 (94) 96 11/07/19 00:00 97.5 62 17 157/75 (102) 99 11/06/19 21:00 Nasal Cannula 3.0 11/06/19 20:44 59 154/74 11/06/19 20:42 59 138/75 11/06/19 20:00 97.3 59 17 154/74 (100) 100 11/06/19 16:00 98.5 86 20 138/75 (96) 99 11/06/19 12:00 98.4 80 22 128/75 (92) 97 Intake and Output 11/06/19 11/07/19 19:00 07:00 Intake Total 1140 ml Output Total 1000 ml 600 ml Balance 140 ml -600 ml Intake Oral 1140 ml Output Urine Total 1000 ml 600 ml Laboratory Tests Test 11/07/19 05:34 White Blood Count 9.1 K/UL (4.8-10.8) Red Blood Count 3.22 M/UL (4.70-6.10) L Hemoglobin 10.0 G/DL (14.2-18.0) L Hematocrit 30.4 % (42.0-52.0) L Mean Corpuscular Volume 94 FL (80-99) Mean Corpuscular Hemoglobin 30.9 PG (27.0-31.0) Mean Corpuscular Hemoglobin Concent 32.8 G/DL (32.0-36.0) Red Cell Distribution Width 12.9 % (11.6-14.8) Platelet Count 360 K/UL (150-450) Mean Platelet Volume 6.1 FL (6.5-10.1) L Neutrophils (%) (Auto) 67.5 % (45.0-75.0) Lymphocytes (%) (Auto) 16.9 % (20.0-45.0) L Monocytes (%) (Auto) 6.8 % (1.0-10.0) Eosinophils (%) (Auto) 7.6 % (0.0-3.0) H Basophils (%) (Auto) 1.2 % (0.0-2.0) Sodium Level 145 MMOL/L (136-145) Potassium Level 4.0 MMOL/L (3.5-5.1) Chloride Level 108 MMOL/L (98-107) H Carbon Dioxide Level 24 MMOL/L (21-32) Anion Gap 13 mmol/L (5-15) Blood Urea Nitrogen 29 mg/dL (7-18) H Creatinine 2.4 MG/DL (0.55-1.30) H Estimat Glomerular Filtration Rate 27.4 mL/min (>60) Glucose Level 107 MG/DL (74-106) H Uric Acid 7.6 MG/DL (2.6-7.2) H Calcium Level 8.7 MG/DL (8.5-10.1) Phosphorus Level 3.4 MG/DL (2.5-4.9) Magnesium Level 1.6 MG/DL (1.8-2.4) L Total Bilirubin 0.3 MG/DL (0.2-1.0) Aspartate Amino Transf (AST/SGOT) 26 U/L (15-37) Alanine Aminotransferase (ALT/SGPT) 23 U/L (12-78) Alkaline Phosphatase 94 U/L (46-116) C-Reactive Protein, Quantitative 2.5 mg/dL (0.00-0.90) H Pro-B-Type Natriuretic Peptide 60067 pg/mL (0-125) H Total Protein 7.0 G/DL (6.4-8.2) Albumin 2.7 G/DL (3.4-5.0) L Globulin 4.3 g/dL Albumin/Globulin Ratio 0.6 (1.0-2.7) L Microbiology Date/Time Source Procedure Growth Status 11/05/19 22:00 Stool Clostridium difficile Toxin Assay - Final Complete Objective HEAD AND NECK: No JVD. LUNGS: Clear. CARDIOVASCULAR: Regular S1 and S2 with no gallop. ABDOMEN: Soft. EXTREMITIES: Left hemiplegia with contraction of left arm. Castillo Bazan MD Nov 07, 2019 11:05
[2019-11-07 12:00] VITALS: BP 138/74
--- NOTE | 2019-11-07 12:14 | Infectious Diseases Prog Note ---
Assessment/Plan Assessment/Plan IMPRESSION: C. difficile diarrhea Fever, resolved Urinary tract infection with Proteus Diabetes mellitus with hyperglycemia, anemia, acute renal failure, chronic kidney disease, BPH, hypertension, hypothyroidism. VRE carrier NSTEMI Encephalopathy RECOMMENDATION: Continue PO Vancomycin Repeated CXR : resolved congestion Subjective ROS Limited/Unobtainable: Yes Allergies: Coded Allergies: No Known Allergies (Unverified , 10/07/17) Objective Vital Signs Last 24 Hour Vital Signs Date Time Temp Pulse Resp B/P (MAP) Pulse Ox O2 Delivery O2 Flow Rate FiO2 11/07/19 09:37 90 131/66 11/07/19 09:36 90 131/66 11/07/19 09:00 Nasal Cannula 3.0 11/07/19 08:00 98.0 90 19 131/66 (87) 98 11/07/19 04:00 97.3 65 19 158/62 (94) 96 11/07/19 00:00 97.5 62 17 157/75 (102) 99 11/06/19 21:00 Nasal Cannula 3.0 11/06/19 20:44 59 154/74 11/06/19 20:42 59 138/75 11/06/19 20:00 97.3 59 17 154/74 (100) 100 11/06/19 16:00 98.5 86 20 138/75 (96) 99 Height (Feet): 5 Height (Inches): 10.00 Weight (Pounds): 194 General Appearance: no acute distress HEENT: mucous membranes moist Respiratory/Chest: lungs clear Cardiovascular: normal rate Abdomen: soft, non tender Extremities: no edema Neurologic/Psychiatric: other - sleeping Microbiology Date/Time Source Procedure Growth Status 11/05/19 22:00 Stool Clostridium difficile Toxin Assay - Final Complete Laboratory Tests Test 11/07/19 05:34 White Blood Count 9.1 K/UL (4.8-10.8) Red Blood Count 3.22 M/UL (4.70-6.10) L Hemoglobin 10.0 G/DL (14.2-18.0) L Hematocrit 30.4 % (42.0-52.0) L Mean Corpuscular Volume 94 FL (80-99) Mean Corpuscular Hemoglobin 30.9 PG (27.0-31.0) Mean Corpuscular Hemoglobin Concent 32.8 G/DL (32.0-36.0) Red Cell Distribution Width 12.9 % (11.6-14.8) Platelet Count 360 K/UL (150-450) Mean Platelet Volume 6.1 FL (6.5-10.1) L Neutrophils (%) (Auto) 67.5 % (45.0-75.0) Lymphocytes (%) (Auto) 16.9 % (20.0-45.0) L Monocytes (%) (Auto) 6.8 % (1.0-10.0) Eosinophils (%) (Auto) 7.6 % (0.0-3.0) H Basophils (%) (Auto) 1.2 % (0.0-2.0) Sodium Level 145 MMOL/L (136-145) Potassium Level 4.0 MMOL/L (3.5-5.1) Chloride Level 108 MMOL/L (98-107) H Carbon Dioxide Level 24 MMOL/L (21-32) Anion Gap 13 mmol/L (5-15) Blood Urea Nitrogen 29 mg/dL (7-18) H Creatinine 2.4 MG/DL (0.55-1.30) H Estimat Glomerular Filtration Rate 27.4 mL/min (>60) Glucose Level 107 MG/DL (74-106) H Uric Acid 7.6 MG/DL (2.6-7.2) H Calcium Level 8.7 MG/DL (8.5-10.1) Phosphorus Level 3.4 MG/DL (2.5-4.9) Magnesium Level 1.6 MG/DL (1.8-2.4) L Total Bilirubin 0.3 MG/DL (0.2-1.0) Aspartate Amino Transf (AST/SGOT) 26 U/L (15-37) Alanine Aminotransferase (ALT/SGPT) 23 U/L (12-78) Alkaline Phosphatase 94 U/L (46-116) C-Reactive Protein, Quantitative 2.5 mg/dL (0.00-0.90) H Pro-B-Type Natriuretic Peptide 48715 pg/mL (0-125) H Total Protein 7.0 G/DL (6.4-8.2) Albumin 2.7 G/DL (3.4-5.0) L Globulin 4.3 g/dL Albumin/Globulin Ratio 0.6 (1.0-2.7) L Current Medications Medications (Trade) Dose Ordered Sig/Leon Route PRN Reason Start Time Stop Time Status Last Admin Dose Admin Acetaminophen (Tylenol) 500 mg Q4H PRN ORAL Mild Pain/Temp > 100.5 11/01/19 06:15 11/23/19 06:14 Amlodipine Besylate (Norvasc) 5 mg Q12HR ORAL 11/01/19 09:00 11/24/19 20:59 11/07/19 09:37 Aspirin (Ecotrin) 81 mg DAILY ORAL 11/01/19 09:00 11/24/19 08:59 11/07/19 09:37 Atorvastatin Calcium (Lipitor) 80 mg BEDTIME ORAL 11/01/19 21:00 11/23/19 20:59 11/06/19 20:42 Clopidogrel Bisulfate (Plavix) 75 mg DAILY ORAL 11/01/19 09:00 11/24/19 08:59 11/07/19 09:37 Dextrose (Dextrose 50%) 25 ml Q30M PRN IV Hypoglycemia 11/01/19 06:15 11/23/19 05:14 Dextrose (Dextrose 50%) 50 ml Q30M PRN IV Hypoglycemia 11/01/19 06:15 11/23/19 05:14 Finasteride (Proscar) 5 mg DAILY ORAL 11/01/19 09:00 11/24/19 08:59 11/07/19 09:37 Furosemide (Lasix) 40 mg DAILY ORAL 11/01/19 09:00 11/24/19 09:59 11/07/19 09:00 Haloperidol Lactate (Haldol) 5 mg Q6H PRN IM Agitation 11/03/19 08:30 12/03/19 08:29 11/07/19 02:48 Levothyroxine Sodium (Synthroid) 150 mcg DAILY@0630 ORAL 11/01/19 06:30 11/23/19 06:29 11/07/19 06:55 Lorazepam (Ativan) 2 mg Q4H PRN ORAL For Anxiety 11/03/19 14:11 11/10/19 14:10 11/07/19 01:40 Magnesium Oxide (Mag-Ox 400mg) 400 mg THREE TIMES A DAY ORAL 11/07/19 09:00 12/07/19 08:59 11/07/19 09:37 Metoprolol Tartrate (Lopressor) 25 mg Q12HR ORAL 11/01/19 09:00 11/23/19 10:59 11/07/19 09:36 Mirtazapine (Remeron) 15 mg BEDTIME ORAL 11/03/19 21:00 11/27/19 20:59 11/06/19 20:41 Pantoprazole (Protonix) 40 mg DAILY ORAL 11/02/19 09:00 12/02/19 08:59 11/07/19 09:36 Tamsulosin HCl (Flomax) 0.4 mg BID ORAL 11/01/19 09:00 11/23/19 20:59 11/07/19 09:37 Vancomycin HCl (Firvanq) 125 mg FOUR TIMES A DAY ORAL 11/06/19 13:00 11/20/19 12:59 11/07/19 09:37 Troy Yeboah MD Nov 07, 2019 12:14
--- NOTE | 2019-11-07 12:25 | NUR ---
SPEECH PATHOLOGY D/C SUMMARY DISCHARGE PLAN TO RETURN TO REFERRING FACILITY/SNF D/C SUMMARY PATIENT DID NOT MEET P.O. INTAKE GOALS, NURSING STAFF MET ASPIRATION PRECAUTIONS AND ORAL CARE GOALS. PATIENT REMAINS HIGHLY CONFUSED/DISORIENTED. CONTINUE WITH CURRENT DIET PATIENT REMAINS HIGH RISK FOR MALNUTRITION/DEHYDRATION DUE TO INSUFFICIENT P.O. INTAKE PULMONARY STATUS IMPROVING D/C FROM [facility]
--- NOTE | 2019-11-07 13:19 | NUR ---
CASE MANAGEMENT:REVIEW SI;C-DIFF. UTI. NSTEMI. ENCEPHALOPATHY. 98.0 90 19 158/62 96% 3L NC FIO2 28% BUN 29 CR 2.4 BNP 59687 IS;VANOMYCIN PO QID MAG OX PO TID PROTONIX PO QD LASIX PO QD MED SURG STATUS DC;FROM [facility]
--- NOTE | 2019-11-07 13:26 | NUR ---
RD ASSESSMENT & RECOMMENDATIONS SEE CARE ACTIVITY FOR COMPLETE ASSESSMENT DAILY ESTIMATED NEEDS: Needs based on DM, Cardiac, Obesity, renal/ 81.7kg abw 22-25 kcals/kg 4716-3637 total kcals 0.8-1.2 g protein/kg 66-98 g total protein 20-25 mL/kg 4609-2424 total fluid mLs NUTRITION DIAGNOSIS: * Altered nutrition related lab values R/T diabetes, cardiac hx as evidenced by elev BGs (242 196 -> now improved), elev POC glu (200's -> 85-160), elev BNP (>19875-> 90655) * Swallowing difficulty R/T dysphagia, h/o CVA as evidenced by RETAIL EVENT ASSISTANT recommends [facility] soft chopped texture diet-> now advanced to soft easy chew-> regular. CURRENT DIET:No Added Salt PO DIET RECOMMENDATIONS: LIBERALIZED REGULAR DIET W/ POOR PO/ texture per RETAIL EVENT ASSISTANT ADDITIONAL RECOMMENDATIONS: * Monitor for hypoglycemia w/ poor PO, snacks TID in b/w meals added * Liberalized regular diet w/ poor PO -> Low Na/ CCHO MED when PO intake consistently >50% * Pt refused HPN -> now agrees, Glucerna (220kcal/10g prot each) TID added 8oz 2% milk TID w/ meals added per pt request (190kcal/10g prot each) * Skin integrity: add MVI x 1 * Add probiotics for stool c-diff +
--- NOTE | 2019-11-07 14:08 | NUR ---
CASE MANAGEMENT:DISCHARGE PLAN NOTE PATIENT REFERRED BACK TO [facility] P: [phone] F: [phone] PER BILL, ACCEPTED TO RETURN RM 114-B SKILLED NURSING DISCHARGE PENDING OFFICIAL DC ORDER BY PCP LOU HORTON AWARE AND WILL REQUEST ORDER
--- NOTE | 2019-11-07 14:15 | Nephrology Progress Note ---
Assessment/Plan Problem List: (1) Renal failure (ARF), acute on chronic Assessment: Cr slightly higher (2) Elevated troponin (3) Hypoglycemia (4) Hypothyroid (5) HTN (hypertension) (6) Diabetic nephropathy (7) Anemia in chronic kidney disease (CKD) Assessment Urinary retention Renal failure (ARF), acute on chronic Anemia: s/p GI Bleed on anticoagulation h/o Hypertension Elevated troponin h/o Hypothyroid DM- Hypoglycemia on presentation h/o UTI Plan has C dif now Reinsert Kamara BP management IV Iron watch HR 2D Echo NOTED Kidney MARCO A NOTED Avoid nephrotoxics antibiotics Per orders / per consultants Subjective ROS Limited/Unobtainable: No Constitutional: Reports: malaise, weakness Objective Objective Last 24 Hour Vital Signs Date Time Temp Pulse Resp B/P (MAP) Pulse Ox O2 Delivery O2 Flow Rate FiO2 11/07/19 12:00 98.3 88 20 138/74 (95) 98 11/07/19 09:37 90 131/66 11/07/19 09:36 90 131/66 11/07/19 09:00 Nasal Cannula 3.0 11/07/19 08:00 98.0 90 19 131/66 (87) 98 11/07/19 04:00 97.3 65 19 158/62 (94) 96 11/07/19 00:00 97.5 62 17 157/75 (102) 99 11/06/19 21:00 Nasal Cannula 3.0 11/06/19 20:44 59 154/74 11/06/19 20:42 59 138/75 11/06/19 20:00 97.3 59 17 154/74 (100) 100 11/06/19 16:00 98.5 86 20 138/75 (96) 99 Intake and Output 11/06/19 11/07/19 19:00 07:00 Intake Total 1140 ml Output Total 1000 ml 600 ml Balance 140 ml -600 ml Intake Oral 1140 ml Output Urine Total 1000 ml 600 ml Laboratory Tests 11/07/19 05:34: White Blood Count 9.1, Red Blood Count 3.22L, Hemoglobin 10.0L, Hematocrit 30.4L , Mean Corpuscular Volume 94, Mean Corpuscular Hemoglobin 30.9, Mean Corpuscular Hemoglobin Concent 32.8, Red Cell Distribution Width 12.9, Platelet Count 360, Mean Platelet Volume 6.1L, Neutrophils (%) (Auto) 67.5, Lymphocytes ( %) (Auto) 16.9L, Monocytes (%) (Auto) 6.8, Eosinophils (%) (Auto) 7.6H, Basophils (%) (Auto) 1.2, Sodium Level 145, Potassium Level 4.0, Chloride Level 108H, Carbon Dioxide Level 24, Anion Gap 13, Blood Urea Nitrogen 29H, Creatinine 2.4H, Estimat Glomerular Filtration Rate 27.4, Glucose Level 107H, Uric Acid 7.6H, Calcium Level 8.7, Phosphorus Level 3.4, Magnesium Level 1.6L, Total Bilirubin 0.3, Aspartate Amino Transf (AST/SGOT) 26, Alanine Aminotransferase (ALT/SGPT) 23, Alkaline Phosphatase 94, C-Reactive Protein, Quantitative 2.5H, Pro-B-Type Natriuretic Peptide 53942I, Total Protein 7.0, Albumin 2.7L, Globulin 4.3, Albumin/Globulin Ratio 0.6L Height (Feet): 5 Height (Inches): 10.00 Weight (Pounds): 194 General Appearance: no apparent distress Cardiovascular: tachycardia Respiratory/Chest: decreased breath sounds Abdomen: distended Objective no change Rafa Farr MD Nov 07, 2019 14:15
[2019-11-07] MEDS ORDERED: VANCOMYCIN HCL125 MG PO (14:22)
[2019-11-07] MEDS ORDERED: VANCOMYCIN250 MG/5 M PO (14:30)
[2019-11-07 16:00] VITALS: BP 146/67
--- NOTE | 2019-11-07 16:00 | NUR ---
NURSE NOTES: fadia Cain is not availbel till 11/09/2019. kemar Cain covers dr. loaiza. received order from Dr. Whyte for discharge today.
--- NOTE | 2019-11-07 16:15 | Progress Note ---
DATE: 11/07/2019 SUBJECTIVE: The patient is manageable, awaiting placement. No behavioral issues noted. Calm, cooperative. MENTAL STATUS EXAMINATION: The patient is alert, oriented times self, place, and situation. Mood is neutral. Affect is flat. Thought process is concrete. Thought content, no suicidal or homicidal ideation. Cognition is intact. Insight and judgment is fair. ASSESSMENT: Psychotic disorder. PLAN: 1. The patient is cleared to be discharged. 2. Provide the patient with reality orientation. Gómez Cooper M.D. DR: BAUTISTA JOB#: [id number] CC:
--- NOTE | 2019-11-07 16:33 | NUR ---
NURSE NOTES: given report to [facility]. spoke to LOU Maier building construction supervisor.
--- NOTE | 2019-11-07 16:35 | General Progress Note ---
Assessment/Plan Assessment/Plan: IM PROGRESS NOTE COVERING FOR DR. MONK Assessment and Recs: # Elevated troponin, rising, ?nstemi --> aware --> anticoag as per his recs --> on lopressors, asa, plavix, lipitor # c diff+++ --> per id, vanc # FTT -- failure to thrive --> mirtazapine per gi # Renal failure (ARF), acute on chronic --> per renal Dr. Farr # UTI --> abx as needed --> abx: ceftriaxone --> fc # Anemia due to underlying GI bleed -- patient presents with hematemesis before and now with barb --> as per GI eval, may need endoscopy --> has been started on ppi --> cea has been ordered --> Hgb goal >7. Transfuse prn. --> Will sign consent if necessary --> Epogen not started. IRON IV x 5 days completed --> Consider octreotide gtt as per gi eval --> Medications have been reviewed --> Hgb 8.8 -->8.6-->8.7-->8.9-->8.5-->9.1-->9.3-->9.4 # Coagulation defect/Bleeding, multifactorial usually related to poor PO intake versus medications, in this case related to coumadin --> administer Vitamin K if patient is bleeding or FFP if the INR is >10 --> hold off on ffp unless active procedure/bleeding, first begin with vit K 10 --> mixing study as needed --> HAVE STOPPED COUMADIN --> per cards, hold off at this time, is aware of afib hx # Anemia due to folic acid deficiency/iron deficiency as well --> prior folic acid<5 --> recheck levels # Dvt ppx on scds now --> on plavix and asa The timing of this note does not necessarily reflect the time of the patient was seen. Greatly appreciate consultation. Subjective Constitutional: Denies: no symptoms, chills, diaphoresis, fever, malaise, weakness, other Gastrointestinal/Abdominal: Denies: no symptoms, abdomen distended, abdominal pain, black stools, tarry stools, blood in stool, constipated, diarrhea, difficulty swallowing, nausea, poor appetite, poor fluid intake, rectal bleeding , vomiting, other Genitourinary: Denies: no symptoms, burning, discharge, frequency, flank pain, hematuria, incontinence, pain, urgency, other Neurologic/Psychiatric: Denies: no symptoms, anxiety, depressed, emotional problems, headache, numbness, paresthesia, pre-existing deficit, seizure, tingling, tremors, weakness, other Hematologic/Lymphatic: Denies: no symptoms, anemia, easy bleeding, easy bruising, other Allergies: Coded Allergies: No Known Allergies (Unverified , 10/07/17) Subjective 10/27: awake, venous duplex negative, iv iron, nose bleed 10/28: is awake, alert on 2l flow, no bleeding, coags noted 10/29: no major changes, seen by pulm, coag midly elevated, hgb in the 8s 10/30: no events, no bleeding or chills, no major changes, hgb 8.7 10/31: to be transferred to med surg, ct head negative, h/h stable, on ceftriaxone 11/02: awake and alert, no acute events, labs reviewed, nc 11/03: labs still pending from am, remains agitated and anxious, no bleedng, on ctx 11/04: no major events, no bleeding, no night sweats 11/06: confused, c diff++, nc 2l, h/h stable 11/07: seen by psych and renal, potentially cleared for dc Objective Last 24 Hour Vital Signs Date Time Temp Pulse Resp B/P (MAP) Pulse Ox O2 Delivery O2 Flow Rate FiO2 11/07/19 12:00 98.3 88 20 138/74 (95) 98 11/07/19 09:37 90 131/66 11/07/19 09:36 90 131/66 11/07/19 09:00 Nasal Cannula 3.0 11/07/19 08:00 98.0 90 19 131/66 (87) 98 11/07/19 04:00 97.3 65 19 158/62 (94) 96 11/07/19 00:00 97.5 62 17 157/75 (102) 99 11/06/19 21:00 Nasal Cannula 3.0 11/06/19 20:44 59 154/74 11/06/19 20:42 59 138/75 11/06/19 20:00 97.3 59 17 154/74 (100) 100 Intake and Output 11/06/19 11/07/19 19:00 07:00 Intake Total 1140 ml Output Total 1000 ml 600 ml Balance 140 ml -600 ml Intake Oral 1140 ml Output Urine Total 1000 ml 600 ml Laboratory Tests 11/07/19 05:34: White Blood Count 9.1, Red Blood Count 3.22L, Hemoglobin 10.0L, Hematocrit 30.4L , Mean Corpuscular Volume 94, Mean Corpuscular Hemoglobin 30.9, Mean Corpuscular Hemoglobin Concent 32.8, Red Cell Distribution Width 12.9, Platelet Count 360, Mean Platelet Volume 6.1L, Neutrophils (%) (Auto) 67.5, Lymphocytes ( %) (Auto) 16.9L, Monocytes (%) (Auto) 6.8, Eosinophils (%) (Auto) 7.6H, Basophils (%) (Auto) 1.2, Sodium Level 145, Potassium Level 4.0, Chloride Level 108H, Carbon Dioxide Level 24, Anion Gap 13, Blood Urea Nitrogen 29H, Creatinine 2.4H, Estimat Glomerular Filtration Rate 27.4, Glucose Level 107H, Uric Acid 7.6H, Calcium Level 8.7, Phosphorus Level 3.4, Magnesium Level 1.6L, Total Bilirubin 0.3, Aspartate Amino Transf (AST/SGOT) 26, Alanine Aminotransferase (ALT/SGPT) 23, Alkaline Phosphatase 94, C-Reactive Protein, Quantitative 2.5H, Pro-B-Type Natriuretic Peptide 73334N, Total Protein 7.0, Albumin 2.7L, Globulin 4.3, Albumin/Globulin Ratio 0.6L Height (Feet): 5 Height (Inches): 10.00 Weight (Pounds): 194 Objective PE Vitals: reviewed General Appearance: NAD + chronically ill HEENT: normocephalic, atraumatic ++ biconjunctival hemorrhage-> improved Neck: non-tender, normal alignment Respiratory/Chest: nromal breath sounds bilaterally, NC+ Cardiovascular/Chest: normal peripheral pulses, normal rate Abdomen: normal bowel sounds, soft, nontender Extremities: normal range of motion, Right arm skin tear, left sided weaknness NEURO: ++ left sided weakness Nate Whyte MD Nov 07, 2019 16:35
--- NOTE | 2019-11-07 16:37 | NUR ---
NURSE NOTES: scheduled ambulance at 1800. spoke to [facility].
--- NOTE | 2019-11-07 17:43 | General Progress Note ---
Assessment/Plan Assessment/Plan: Assessment - C Diff, diarrhea - Anorexia - Azotemia - anemia - Functional decline - Elevated Troponin - hypothyroid Recommendations - PO vanco - Remeron trial - calorie count - liquid shakes / supplements - family to bring home foods - check OB --> negative Subjective Allergies: Coded Allergies: No Known Allergies (Unverified , 10/07/17) Subjective BM diarrhea x 2 yesterday tolerating po accepted by facility for d/c Objective Last 24 Hour Vital Signs Date Time Temp Pulse Resp B/P (MAP) Pulse Ox O2 Delivery O2 Flow Rate FiO2 11/07/19 16:00 98.0 55 18 146/67 (93) 100 11/07/19 12:00 98.3 88 20 138/74 (95) 98 11/07/19 09:37 90 131/66 11/07/19 09:36 90 131/66 11/07/19 09:00 Nasal Cannula 3.0 11/07/19 08:00 98.0 90 19 131/66 (87) 98 11/07/19 04:00 97.3 65 19 158/62 (94) 96 11/07/19 00:00 97.5 62 17 157/75 (102) 99 11/06/19 21:00 Nasal Cannula 3.0 11/06/19 20:44 59 154/74 11/06/19 20:42 59 138/75 11/06/19 20:00 97.3 59 17 154/74 (100) 100 Intake and Output 11/06/19 11/07/19 19:00 07:00 Intake Total 1140 ml Output Total 1000 ml 600 ml Balance 140 ml -600 ml Intake Oral 1140 ml Output Urine Total 1000 ml 600 ml Laboratory Tests 11/07/19 05:34: White Blood Count 9.1, Red Blood Count 3.22L, Hemoglobin 10.0L, Hematocrit 30.4L , Mean Corpuscular Volume 94, Mean Corpuscular Hemoglobin 30.9, Mean Corpuscular Hemoglobin Concent 32.8, Red Cell Distribution Width 12.9, Platelet Count 360, Mean Platelet Volume 6.1L, Neutrophils (%) (Auto) 67.5, Lymphocytes ( %) (Auto) 16.9L, Monocytes (%) (Auto) 6.8, Eosinophils (%) (Auto) 7.6H, Basophils (%) (Auto) 1.2, Sodium Level 145, Potassium Level 4.0, Chloride Level 108H, Carbon Dioxide Level 24, Anion Gap 13, Blood Urea Nitrogen 29H, Creatinine 2.4H, Estimat Glomerular Filtration Rate 27.4, Glucose Level 107H, Uric Acid 7.6H, Calcium Level 8.7, Phosphorus Level 3.4, Magnesium Level 1.6L, Total Bilirubin 0.3, Aspartate Amino Transf (AST/SGOT) 26, Alanine Aminotransferase (ALT/SGPT) 23, Alkaline Phosphatase 94, C-Reactive Protein, Quantitative 2.5H, Pro-B-Type Natriuretic Peptide 09726C, Total Protein 7.0, Albumin 2.7L, Globulin 4.3, Albumin/Globulin Ratio 0.6L Height (Feet): 5 Height (Inches): 10.00 Weight (Pounds): 194 Objective WDWN NCAT supple CTA RR abd soft no edema Naheed Welch MD Nov 07, 2019 17:43
--- NOTE | 2019-11-07 18:34 | Pulmonology Progress Note ---
Assessment/Plan Assessment/Plan IMPRESSION: 1. Mild pulmonary vascular congestion. 2. Hypertension. 3. Diabetes mellitus. 4. Previous CVA. 5. Hypoglycemia. 6. Hypoxemia. 7. Epistaxis 8. Anorexia DISCUSSION: Continue low flow O2 Continue diuresis OK to dc back to snf. noted positive for C. diff. Janes Cox M.D. Subjective Interval Events: None new Constitutional: Reports: no symptoms HEENT: Repors: no symptoms Respiratory: Reports: no symptoms Cardiovascular: Reports: no symptoms Allergies: Coded Allergies: No Known Allergies (Unverified , 10/07/17) Objective Last 24 Hour Vital Signs Date Time Temp Pulse Resp B/P (MAP) Pulse Ox O2 Delivery O2 Flow Rate FiO2 11/07/19 16:00 98.0 55 18 146/67 (93) 100 11/07/19 12:00 98.3 88 20 138/74 (95) 98 11/07/19 09:37 90 131/66 11/07/19 09:36 90 131/66 11/07/19 09:00 Nasal Cannula 3.0 11/07/19 08:00 98.0 90 19 131/66 (87) 98 11/07/19 04:00 97.3 65 19 158/62 (94) 96 11/07/19 00:00 97.5 62 17 157/75 (102) 99 11/06/19 21:00 Nasal Cannula 3.0 11/06/19 20:44 59 154/74 11/06/19 20:42 59 138/75 11/06/19 20:00 97.3 59 17 154/74 (100) 100 Intake and Output 11/06/19 11/07/19 19:00 07:00 Intake Total 1140 ml Output Total 1000 ml 600 ml Balance 140 ml -600 ml Intake Oral 1140 ml Output Urine Total 1000 ml 600 ml General Appearance: no acute distress HEENT: normocephalic Respiratory/Chest: chest wall non-tender Cardiovascular: normal peripheral pulses Abdomen: normal bowel sounds Extremities: no cyanosis Microbiology Date/Time Source Procedure Growth Status 11/05/19 22:00 Stool Clostridium difficile Toxin Assay - Final Complete Laboratory Tests 11/07/19 05:34: White Blood Count 9.1, Red Blood Count 3.22L, Hemoglobin 10.0L, Hematocrit 30.4L , Mean Corpuscular Volume 94, Mean Corpuscular Hemoglobin 30.9, Mean Corpuscular Hemoglobin Concent 32.8, Red Cell Distribution Width 12.9, Platelet Count 360, Mean Platelet Volume 6.1L, Neutrophils (%) (Auto) 67.5, Lymphocytes ( %) (Auto) 16.9L, Monocytes (%) (Auto) 6.8, Eosinophils (%) (Auto) 7.6H, Basophils (%) (Auto) 1.2, Sodium Level 145, Potassium Level 4.0, Chloride Level 108H, Carbon Dioxide Level 24, Anion Gap 13, Blood Urea Nitrogen 29H, Creatinine 2.4H, Estimat Glomerular Filtration Rate 27.4, Glucose Level 107H, Uric Acid 7.6H, Calcium Level 8.7, Phosphorus Level 3.4, Magnesium Level 1.6L, Total Bilirubin 0.3, Aspartate Amino Transf (AST/SGOT) 26, Alanine Aminotransferase (ALT/SGPT) 23, Alkaline Phosphatase 94, C-Reactive Protein, Quantitative 2.5H, Pro-B-Type Natriuretic Peptide 26969K, Total Protein 7.0, Albumin 2.7L, Globulin 4.3, Albumin/Globulin Ratio 0.6L Current Medications Medications (Trade) Dose Ordered Sig/Leon Route PRN Reason Start Time Stop Time Status Last Admin Dose Admin Acetaminophen (Tylenol) 500 mg Q4H PRN ORAL Mild Pain/Temp > 100.5 11/01/19 06:15 11/23/19 06:14 Amlodipine Besylate (Norvasc) 5 mg Q12HR ORAL 11/01/19 09:00 11/24/19 20:59 11/07/19 09:37 Aspirin (Ecotrin) 81 mg DAILY ORAL 11/01/19 09:00 11/24/19 08:59 11/07/19 09:37 Atorvastatin Calcium (Lipitor) 80 mg BEDTIME ORAL 11/01/19 21:00 11/23/19 20:59 11/06/19 20:42 Clopidogrel Bisulfate (Plavix) 75 mg DAILY ORAL 11/01/19 09:00 11/24/19 08:59 11/07/19 09:37 Dextrose (Dextrose 50%) 25 ml Q30M PRN IV Hypoglycemia 11/01/19 06:15 11/23/19 05:14 Dextrose (Dextrose 50%) 50 ml Q30M PRN IV Hypoglycemia 11/01/19 06:15 11/23/19 05:14 Finasteride (Proscar) 5 mg DAILY ORAL 11/01/19 09:00 11/24/19 08:59 11/07/19 09:37 Furosemide (Lasix) 40 mg DAILY ORAL 11/01/19 09:00 11/24/19 09:59 11/07/19 09:00 Haloperidol Lactate (Haldol) 5 mg Q6H PRN IM Agitation 11/03/19 08:30 12/03/19 08:29 11/07/19 02:48 Levothyroxine Sodium (Synthroid) 150 mcg DAILY@0630 ORAL 11/01/19 06:30 11/23/19 06:29 11/07/19 06:55 Lorazepam (Ativan) 2 mg Q4H PRN ORAL For Anxiety 11/03/19 14:11 11/10/19 14:10 11/07/19 17:33 Metoprolol Tartrate (Lopressor) 25 mg Q12HR ORAL 11/01/19 09:00 11/23/19 10:59 11/07/19 09:36 Mirtazapine (Remeron) 15 mg BEDTIME ORAL 11/03/19 21:00 11/27/19 20:59 11/06/19 20:41 Pantoprazole (Protonix) 40 mg DAILY ORAL 11/02/19 09:00 12/02/19 08:59 11/07/19 09:36 Tamsulosin HCl (Flomax) 0.4 mg BID ORAL 11/01/19 09:00 11/23/19 20:59 11/07/19 17:27 Vancomycin HCl (Firvanq) 125 mg FOUR TIMES A DAY ORAL 11/06/19 13:00 11/20/19 12:59 11/07/19 17:27 Janes Cox MD Nov 07, 2019 18:34
--- NOTE | 2019-11-07 19:08 | NUR ---
HAND-OFF: Report given to LOU Booker
--- NOTE | 2019-11-07 20:14 | NUR ---
NURSE NOTES: Patient discharged at 2010. Transported by ambulance to [place]. Report given by day shift RN to [place]. Patient alert x2. No signs of distress or SOB. On contact isolation for c diff. All belongings accounted for and with the patient. IV and identification wristband removed.
--- NOTE | 2019-11-09 16:35 | Discharge Summary ---
Discharge Summary Discharge Summary _ DATE OF ADMISSION: 10/24/2019 DATE OF DISCHARGE: 11/07/2019 ADMITTING MD: Dr. Oni Weinstein DISCHARGED BY: Dr. Nate Whyte CONSULTANTS: Dr. Rafa Cox BRIEF HOSPITAL COURSE: The patient is a 64-year-old male, who presented to ED after patient was found to have low blood sugar at the senior living facility. He received 2 shots of glucagon. He was transported to ED via EMS. Patient is poor historian. He has history of hyperlipidemia, hypothyroidism, CVA with left hemiplegia, diabetes and hypertension. Upon evaluation at the ED, blood work did not show any leukocytosis. Hemoglobin 9.7 and hematocrit 29. Glucose was 25. He was given D50. Troponin was positive. EKG was in sinus. He was given aspirin. Repeat Accu-Chek an hour later on D10 showed 55. He was given another amp of D50. Repeat EKG was unchanged. Chest x-ray showed mild pulmonary vascular congestion. He was then admitted to stepdown unit for elevated troponin, renal failure and hypoglycemia. He underwent cardiac evaluation. Patient had non-ST elevated MN. He had a prior MN on July 2019. He was given antiplatelet therapy, low-dose beta- toby and statin. Patient does not have any chest pain. EKG did not show any signs of acute ischemia. Elevated troponin likely due to renal failure. EF was 60%. He was previously on anticoagulation. He was given Plavix and aspirin. Patient was reported to have no output. Kamara catheter was inserted and drained 700cc of urine. He was followed by electric meter installer helper. Patient was given hydrocortisone and IV dextrose. He was given octreotide subcutaneous. Blood glucose was closely monitored. Levothyroxine was resumed. TSH at target. Octreotide was eventually discontinued, once glucose stable. Patient had anemia and iron deficiency. He was given IV iron. Venous duplex was negative for DVT. Renal ultrasound revealed parapelvic right renal cyst, bilateral pleural effusion, trace ascites, otherwise negative. He complained of left-sided pain. He was given Tylenol. Patient had nosebleed. Antiplatelet therapy placed on hold. GI was consulted for evaluation of anorexia and anemia. He was given trial of Remeron. Family was encouraged to bring foods of his liking. He developed low-grade fever. ID specialist consulted. Urinalysis showed urine WBC of 40-60 with moderate bacteria. Chest x-ray showed bilateral interstitial and airspace edema. Patient was started on ceftriaxone. Patient became more lethargic. Neurologist was consulted. On evaluation, patient was with sensorimotor peripheral neuropathy from his diabetes. He had initial decrease in mental status with continued hypoglycemic attacks. There was no evidence of seizure. Decline in mental status probably due to urinary tract infection. Head CT did not show any evidence of acute intracranial hemorrhage, mass-effect or edema. There was an old right MCA territory infarct. Status post right frontal and right parietal craniotomy. There was a large expansile mass versus mucus accumulation versus fluid retention cyst within the expanded right sphenoid sinus similar in appearance from previous CT scan in 2018. EEG showed mild to moderate encephalopathy. Nosebleed stopped. He was resumed on antiplatelet therapy. Anemia was stable. Urine culture showed growth of Proteus. He eventually defervesced. He completed antibiotic treatment Rocephin. He was observed off antibiotics. Patient had severe agitation, anxiety, landing, screaming and attempting to come out of bed. Psychiatrist also. He was given lorazepam. He was continued on Remeron. Patient had diarrhea. C. difficile was positive. Patient was given p.o. vancomycin. Diarrhea improved. He was eventually discharged to SNF. FINAL DIAGNOSES: Acute on chronic renal failure Non-ST elevated MN type II due to renal failure Proteus UTI. C. difficile diarrhea Failure to thrive Anemia due to folate and iron deficiency Psychotic disorder Elevated troponin Hypothyroidism Mild pulmonary vascular congestion Hypertension Diabetes mellitus Review CVA with left-sided hemiparesis Hypoglycemia Hypoxemia Epistaxis Anorexia BPH VRE carrier Acute toxic encephalopathy DISPOSITION: Patient was discharged to a SNF. DISCHARGE MEDICATIONS: Refer to Discharge Medication List. I have been assigned to complete a discharge summary on this account, I was not involved with the patient's management.--KEITH Colon Jacqueline Robles NP Nov 09, 2019 16:35
--- NOTE | 2019-11-10 23:58 | Coder Physician Query ---
Clarification is required for compliance, coding accuracy, and to reflect severity of illness for this patient. Dear Date:11/10/19 The patient is a 64-year-old male, who presented to ED after patient was found to have low blood sugar at the senior living facility. He received 2 shots of glucagon. He was transported to ED via EMS. Patient is poor historian. He has history of hyperlipidemia, hypothyroidism, CVA with left hemiplegia, diabetes and hypertension. Upon evaluation at the ED, blood work did not show any leukocytosis. Hemoglobin 9.7 and hematocrit 29. Glucose was 25. He was given D50. Troponin was positive. EKG was in sinus. He was given aspirin. Repeat Accu-Chek an hour later on D10 showed 55. He was given another amp of D50. Repeat EKG was unchanged. Chest x-ray showed mild pulmonary vascular congestion. He was then admitted to stepdown unit for elevated troponin, renal failure and hypoglycemia. Patient later developed a fever. A posssible diagnois of___SEPSIS___was made in the medical record but this diagnosis was not documented in the discharge summary. Upon review, it is difficult to determine whether this diagnosis has been ruled in, ruled out,or is still being worked up. Please indicate below the status of the aforementioned diagnosis. [] Treated and resolve [] Presumed and treated [] Currently under treatment [] Still being worked-up [] Ruled out Present on Admission: [] Yes [] No [] Clinically Undetermined Physician signature Date Please also document in your Progress Notes and/or Discharge Summary and indicate if the condition was present on admission. JLEENA
--- NOTE | 2019-11-12 12:50 | CDS Physician Query ---
PLEASE COMPLETE THE DOCUMENT BEFORE SIGNING Dear Dr. Troy Yeboah Date:11/11/19 Thermoforming Machine Operator/CDS Name: Scarlett Sparks / Jeffrey Mcpherson Exercise your independent professional judgment when responding to query. Question asked do not imply a particular answer is desired/expected The patient is a 64-year-old male, who presented to ED after patient was found to have low blood sugar at the shelter facility. He received 2 shots of glucagon. He was transported to ED via EMS. Patient is poor historian. He has history of hyperlipidemia, hypothyroidism, CVA with left hemiplegia, diabetes and hypertension. Upon evaluation at the ED, blood work did not show any leukocytosis. Hemoglobin 9.7 and hematocrit 29. Glucose was 25. He was given D50. Troponin was positive. EKG was in sinus. He was given aspirin. Repeat Accu-Chek an hour later on D10 showed 55. He was given another amp of D50. Repeat EKG was unchanged. Chest x-ray showed mild pulmonary vascular congestion. He was then admitted to stepdown unit for elevated troponin, renal failure and hypoglycemia. Patient later developed a fever. A posssible diagnois of___SEPSIS___was made in the medical record but this diagnosis was not documented in the discharge summary. Upon review, it is difficult to determine whether this diagnosis has been ruled in, ruled out,or is still being worked up. Please indicate below the status of the aforementioned diagnosis. [] Treated and resolve [] Presumed and treated [] Currently under treatment [] Still being worked-up [] Ruled out Present on Admission: [] Yes [] No [] Clinically Undetermined Physician signature Date Please also document in your Progress Notes and/or Discharge Summary and indicate if the condition was present on admission. JELENA
== END 2019-11-07 20:11 | DRG 720 ==
LOC: EDBD 00:32 → EMR 00:51 → EDBEDREQ 01:06 → 2W 01:43 → EDBEDREQSVC 02:16 → EDBEDREQ 02:17 → 2W 10-29 01:30 → 4E 11-01 05:48
DX: A41.9 Sepsis, unspecified organism (principal); I21.4 Non-ST elevation (NSTEMI) myocardial infarction; N17.9 Acute kidney failure, unspecified; T38.3X5A Adverse effect of insulin and oral hypoglycemic [antidiabetic] drugs, initial encounter; Y92.9 Unspecified place or not applicable; Z79.84 Long term (current) use of oral hypoglycemic drugs; E11.65 Type 2 diabetes mellitus with hyperglycemia; E11.42 Type 2 diabetes mellitus with diabetic polyneuropathy; E11.649 Type 2 diabetes mellitus with hypoglycemia without coma; R09.02 Hypoxemia; I12.9 Hypertensive chronic kidney disease with stage 1 through stage 4 chronic kidney disease, or unspecified chronic kidney disease; E11.22 Type 2 diabetes mellitus with diabetic chronic kidney disease; N18.3 Chronic kidney disease, stage 3 (moderate); E78.5 Hyperlipidemia, unspecified; N40.1 Benign prostatic hyperplasia with lower urinary tract symptoms; R33.8 Other retention of urine; E03.9 Hypothyroidism, unspecified; K21.9 Gastro-esophageal reflux disease without esophagitis; G89.0 Central pain syndrome; E86.0 Dehydration; I69.954 Hemiplegia and hemiparesis following unspecified cerebrovascular disease affecting left non-dominant side; D68.9 Coagulation defect, unspecified; K92.0 Hematemesis; D50.0 Iron deficiency anemia secondary to blood loss (chronic); N39.0 Urinary tract infection, site not specified; M24.50 Contracture, unspecified joint; Z74.01 Bed confinement status; R63.0 Anorexia; Z68.27 Body mass index [BMI] 27.0-27.9, adult; I48.91 Unspecified atrial fibrillation; Z79.01 Long term (current) use of anticoagulants; R04.0 Epistaxis; R50.9 Fever, unspecified; A04.72 Enterocolitis due to Clostridium difficile, not specified as recurrent; R62.7 Adult failure to thrive; G92 Toxic encephalopathy
CPT/HCPCS: 36415; 36600; 70450; 71045; 76770; 80048; 80053; 80061; 81003; 82140; 82270; 82378; 82550; 82607; 82728; 82746; 82803; 82962; 82977; 83036; 83540; 83550; 83605; 83690; 83735; 83880; 83921; 84100; 84439; 84443; 84481; 84484; 84550; 85007; 85025; 85610; 85730; 86140; 86710; 87040; 87081; 87086; 87181; 87324; 93005; 93306; 93970; 94640; 94664; 95819; 96361; 96365; 96366; 96375; 99291; J7030; J7620

== ENCOUNTER 2019-12-03 11:20 | Inpatient (IN) | payer MEDICAID ==
[~2019-12-03] VITALS: Ht 172.7 cm; Wt 93.6 kg
[~2019-12-03 11:20] MED LIST changes: +FERROUS SULFAT325 MG ORAL; +FLOMAX0.4 MG ORAL; +FUROSEMIDE40 MG ORAL; +LEVOTHYROXINE125 MCG ORAL; +METOPROLOL TART25 MG ORAL; +MIRTAZAPINE15 M3 ORAL; +NOVOLOG100 UNIT/4 SQ; +PANTOPRAZOLE SO40 MG ORAL; +VANCOMYCIN HCL125 MG PO; +VANCOMYCIN250 MG/5 M PO
[2019-12-03 12:00] VITALS: BP 147/75
--- NOTE | 2019-12-03 12:00 | NUR ---
ED Nurse Note: Pt was BIBA from a nursing convalescent d/t abnomal labs and epistaxis. Pt is AOx3, calm and cooperative, NKA, and is on FULL CODE. Noted LT nare with controlled bleeding. Per product merchandiser's report pt has hx of HTN, DM, CVA. Placed on bed and gown; hooked to awake overnight monitor. Noted HR at 48bmp, Dr. Jacobsen notified. Safety assured, will continue to monitor.
--- NOTE | 2019-12-03 12:50 | NUR ---
ED Nurse Note: Pt went on CT via [facility] accompanied by tech
[2019-12-03 13:08] LABS: EOSINOPHILS % (AUTO) 6.9 % (0.0-3.0); HEMATOCRIT 25.1 % (42.0-52.0); HEMOGLOBIN 8.3 G/DL (14.2-18.0); LYMPHOCYTES % (AUTO) 17.2 % (20.0-45.0); MEAN CORPUSCULAR VOLUME 93 FL (80-99); MONOCYTES % (AUTO) 5.6 % (1.0-10.0); NEUTROPHILS % (AUTO) 69.4 % (45.0-75.0); PLATELET COUNT 206 K/UL (150-450); RED BLOOD COUNT 2.71 M/UL (4.70-6.10); RED CELL DISTRIBUTION WIDTH 14.3 % (11.6-14.8); WHITE BLOOD COUNT 6.8 K/UL (4.8-10.8)
[2019-12-03 13:14] LABS: INR 1.1 (0.9-1.1)
[2019-12-03 13:15] LABS: ANION GAP 12 mmol/L (5-15); BLOOD UREA NITROGEN 62 mg/dL (7-18); CALCIUM 9.3 MG/DL (8.5-10.1); CARBON DIOXIDE 24 MMOL/L (21-32); CHLORIDE 109 MMOL/L (98-107); CREATININE 2.6 MG/DL (0.55-1.30); POTASSIUM 5.1 MMOL/L (3.5-5.1); SODIUM 144 MMOL/L (136-145)
--- NOTE | 2019-12-03 13:21 | Diagnostic Imaging Report ---
Indication: Headache Technique: Contiguous 5 mm thick transaxial imaging of the head obtained in a Siemens Sensation [address] scanner. Soft tissue and bone windows generated. Automatic Exposure Control was utilized. Total Dose length Product (DLP): 1045.5mGycm CT Dose Index Volume (CTDIvol): 53.4 mGy Comparison: 10/31/2019 Findings: There is no change. Large area of encephalomalacia demonstrated in the right MCA territory including portions of the temporal parietal and frontal lobes. There is a right posterior parietal craniotomy noted. Generalized atrophy is present with prominence of the ventricles and basal cisterns and cerebral sulci. There is evidence of an old lacunar infarct in the right aspect of the evelina. There is extensive expansion of the sphenoid sinus again demonstrated. IMPRESSION: No change compared to the last study. No mass effect or edema identified. Old right MCA territory infarct. 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 The CT scanner at [facility] is accredited by the [employer] and the scans are performed using dose optimization techniques as appropriate to a performed exam including Automatic Exposure control.
[2019-12-03 13:29] LABS: ALANINE AMINOTRANSFERASE 40 U/L (12-78); ALBUMIN 3.4 G/DL (3.4-5.0); ALBUMIN/GLOBULIN RATIO 0.9 (1.0-2.7); ALKALINE PHOSPHATASE 99 U/L (46-116); ASPARTATE AMINO TRANSFERASE 17 U/L (15-37); BILIRUBIN,TOTAL 0.4 MG/DL (0.2-1.0); CKMB 1.8 NG/ML (0.0-3.6); CREATINE KINASE 83 U/L (26-308)
--- NOTE | 2019-12-03 13:57 | Diagnostic Imaging Report ---
Indication: Dyspnea Comparison: 11/04/2019 A single view chest radiograph was obtained. Findings: Pulmonary vascular congestion demonstrated with interstitial densities in the cephalized prominent pulmonary vessels and cardiomegaly. No pleural effusion seen. Atelectasis suspected at the left lung base. IMPRESSION: CHF
[2019-12-03 14:00] VITALS: BP 137/110
--- NOTE | 2019-12-03 14:41 | NUR ---
ED Nurse Note: Pt is on bed, sleeping, NAD.
[2019-12-03] MEDS ORDERED: Oxymetazoline 0.05% Na Spray 30ml NASAL ONE (15:30)
--- NOTE | 2019-12-03 15:49 | Emergency Room Report ---
History of Present Illness General Chief Complaint: Abnormal Labs Source: Medical Record, EMS, PMD Present Illness HPI This patient presents from a senior living facility. He presents for a persistent nosebleed and anemia identified at the senior living facility. They also were concerned about his poorly controlled blood pressure. The patient is a poor historian and was unable to give any significant history. COVID-19 risk:Travel to affect: No Allergies: Coded Allergies: No Known Allergies (Unverified , 10/07/17) Patient History Past Medical History: see triage record, DM, HTN, CVA/TIA, dementia, renal disease, other - Hypothyroid Past Surgical History: other - Multiple toe amputations Social History: Denies: smoking, alcohol use, drug use Reviewed Nursing Documentation: PMH: Agreed; PSxH: Agreed Nursing Documentation-PMH Past Medical History: No History, Except For Hx Hypertension: Yes Hx Diabetes: Yes Hx Cancer: No Hx Gastrointestinal Problems: No Hx Neurological Problems: Yes Hx Cerebrovascular Accident: Yes - Hemiplegia, Hemiparesis, affects L side Review of Systems All Other Systems: negative except mentioned in HPI Physical Exam Vital Signs Date Time Temp Pulse Resp B/P (MAP) Pulse Ox O2 Delivery O2 Flow Rate FiO2 12/03/19 11:24 97.3 53 20 151/72 (98) 93 Room Air Sp02 EP Interpretation: reviewed, normal General Appearance: no apparent distress, alert, GCS 15, non-toxic Head: normocephalic, atraumatic Eyes: bilateral eye normal inspection, bilateral eye PERRL ENT: normal pharynx, no angioedema, normal voice, other - Dried blood in L. nare Neck: full range of motion, supple/symm/no masses Respiratory: chest non-tender, lungs clear, normal breath sounds, no respiratory distress, no retraction, no accessory muscle use, speaking full sentences Cardiovascular #1: no edema, bradycardia Gastrointestinal: normal bowel sounds, non tender, soft, non-distended, no guarding, no rebound Rectal: deferred Musculoskeletal: normal range of motion, non-tender, swelling - Anasarca Neurologic: alert, responsive Psychiatric: mood/affect normal, no suicidal/homicidal ideation Skin: other - See RN skin exam Medical Decision Making Diagnostic Impression: Primary Impression: Bradycardia Additional Impressions: Elevated troponin Azotemia Anemia ANGEL (acute kidney injury) Sphenoid mass CHF (congestive heart failure) ER Course This patient has anemia and worsening azotemia. He could have an underlying GI bleed given those lab findings. He was given Protonix IV. He also has had a nosebleed. This was not actively bleeding in the emergency department. He is found to have an elevated troponin which is typical for him. He also has findings of CHF on his chest x-ray. He also has bradycardia which is likely related to medications. He is admitted to telemetry for further evaluation and treatment of all these conditions. Laboratory Tests Test 12/03/19 11:47 12/03/19 12:30 White Blood Count 6.8 K/UL (4.8-10.8) Red Blood Count 2.71 M/UL (4.70-6.10) L Hemoglobin 8.3 G/DL (14.2-18.0) L Hematocrit 25.1 % (42.0-52.0) L Mean Corpuscular Volume 93 FL (80-99) Mean Corpuscular Hemoglobin 30.9 PG (27.0-31.0) Mean Corpuscular Hemoglobin Concent 33.2 G/DL (32.0-36.0) Red Cell Distribution Width 14.3 % (11.6-14.8) Platelet Count 206 K/UL (150-450) Mean Platelet Volume 7.4 FL (6.5-10.1) Neutrophils (%) (Auto) 69.4 % (45.0-75.0) Lymphocytes (%) (Auto) 17.2 % (20.0-45.0) L Monocytes (%) (Auto) 5.6 % (1.0-10.0) Eosinophils (%) (Auto) 6.9 % (0.0-3.0) H Basophils (%) (Auto) 1.0 % (0.0-2.0) Prothrombin Time 11.5 SEC (9.30-11.50) Prothrombin Time INR 1.1 (0.9-1.1) Activated Partial Thromboplast Time 25 SEC (23-33) Sodium Level 144 MMOL/L (136-145) Potassium Level 5.1 MMOL/L (3.5-5.1) Chloride Level 109 MMOL/L (98-107) H Carbon Dioxide Level 24 MMOL/L (21-32) Anion Gap 12 mmol/L (5-15) Blood Urea Nitrogen 62 mg/dL (7-18) H Creatinine 2.6 MG/DL (0.55-1.30) H Estimated Glomerular Filtration Rate 25.0 mL/min (>60) Glucose Level 140 MG/DL (74-106) H Lactic Acid Level 0.60 mmol/L (0.4-2.0) Calcium Level 9.3 MG/DL (8.5-10.1) Total Bilirubin 0.4 MG/DL (0.2-1.0) Aspartate Amino Transferase (AST) 17 U/L (15-37) Alanine Aminotransferase (ALT) 40 U/L (12-78) Alkaline Phosphatase 99 U/L (46-116) Total Creatine Kinase 83 U/L (26-308) Creatine Kinase MB 1.8 NG/ML (0.0-3.6) Creatine Kinase MB Relative Index 2.1 Troponin I 0.510 ng/mL (0.000-0.056) Total Protein 7.1 G/DL (6.4-8.2) Albumin 3.4 G/DL (3.4-5.0) Globulin 3.7 g/dL Albumin/Globulin Ratio 0.9 (1.0-2.7) L EKG Diagnostic Results Rate: bradycardiac Rhythm: other - S.ludwig ST Segments: no acute changes Rhythm Strip Diag. Results EP Interpretation: yes Rate: 40's Rhythm: no PVC's, no ectopy Chest X-Ray Diagnostic Results Chest X-Ray Diagnostic Results : Chest X-Ray Ordered: Yes # of Views/Limited/Complete: 1 View Indication: Other EP Interpretation: Yes Interpretation: other - Diffuse patchy opacities Impression: Other - CHF Electronically Signed by: Mallory Jacobsen DO CT/MRI/US Diagnostic Results CT/MRI/US Diagnostic Results : Imaging Test Ordered: CT head Impression No change compared to the last study. No mass effect or edema identified. Old right MCA territory infarct. 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 Last Vital Signs Date Time Temp Pulse Resp B/P (MAP) Pulse Ox O2 Delivery O2 Flow Rate FiO2 12/03/19 12:00 97.3 52 20 147/75 93 Room Air Disposition: ADMITTED INPATIENT Condition: Serious Referrals: Oni Schilling MD (PCP) Mallory Jacobsen DO Dec 03, 2019 15:49
[2019-12-03] MEDS ORDERED: Pantoprazole 80 MG in NS 250 ML IV ONE (16:00)
[2019-12-03] MEDS ORDERED: Pantoprazole Inj IVP ONE (16:00)
[2019-12-03] MEDS ORDERED: Pantoprazole Inj ONE (16:03)
--- NOTE | 2019-12-03 16:39 | NUR ---
ED Nurse Note: Obtained urine specimen; sent to labs.
[2019-12-03 16:54] VITALS: BP 131/50
[2019-12-03 17:29] LABS: APPEARANCE,URINE CLEAR; BILIRUBIN, URINE NEGATIVE (NEGATIVE); COLOR,URINE PALE YELLOW; GLUCOSE, URINE (UA) NEGATIVE (NEGATIVE); KETONES,URINE NEGATIVE (NEGATIVE); LEUKOCYTE ESTERASE ,URINE NEGATIVE (NEGATIVE); NITRITE,URINE NEGATIVE (NEGATIVE); PH,URINE 5 (4.5-8.0); PROTEIN,URINE 3+ (NEGATIVE); UROBILINOGEN,URINE NORMAL MG/DL (0.0-1.0)
--- NOTE | 2019-12-03 18:42 | NUR ---
TRANSFER TO FLOOR: Patient transferred to Telemetry Unit as ordered, per Dr. Schilling. Report given to Jayla BLAKE. Belongings and medications given to receiving nurse. Family and or S/O informed of transfer.
--- NOTE | 2019-12-03 18:45 | NUR ---
NURSE NOTES: Received report from LOU Paez. Patient was transferred from [facility] via [facility]. Patient is alert and oriented x 4. Oriented to room and telemetry unit. court monitor is in placed. Patient is sinus bradycardia to sinus rhythm.. IV site on right wrist G-20 fluid running of PNSS 250 + protonix 80mg running @ 25ml/hour, intact no infiltration noted. Skin is intact, patient does not appear to be in any kind of respiratory distress nor chest pain. Safety measures in placed, side rails up x 2. Call light and bedside table within reach. Bed is in lowest position and locked. Will contact Dr. Schillign for admission orders.
[2019-12-03 18:50] VITALS: BP 121/72
[2019-12-03] MEDS ORDERED: Acetaminophen 500mg (ES) tab ORAL PRN (19:15)
--- NOTE | 2019-12-03 19:46 | NUR ---
NURSE NOTES: Admission orders received from Dr. Schilling.
--- NOTE | 2019-12-03 19:53 | Consultation ---
Consult Note Consult Note I was asked to evaluate the patient at the request of Dr. Schilling for renal failure Patient very well-known to me from his previous admission Patient was seen in room 211 bed 2 discussed with RN Patient examined Data and old records reviewed Chief Complaint: Abnormal Labs [facility] He presents for a persistent nosebleed and anemia identified at the jail facility. They also were concerned about his poorly controlled blood pressure. The patient is a poor historian and was unable to give any significant history. COVID-19 risk:Travel to affect: No No Known Allergies (Unverified , 10/07/17) Past Medical History: see triage record, DM, HTN, CVA/TIA, dementia, renal disease, other - Hypothyroid Past Surgical History: other - Multiple toe amputations Social History: Denies: smoking, alcohol use, drug use Reviewed Nursing Documentation: PMH: Agreed; PSxH: Agreed Past Medical History: No History, Except For Hx Hypertension: Yes Hx Diabetes: Yes Hx Neurological Problems: Yes Hx Cerebrovascular Accident: Yes - Hemiplegia, Hemiparesis, affects L side Assessment/Plan 1) Renal failure (ARF), acute on chronic (2) Elevated troponin, bradycardia (3) Anemia of chronic kidney disease, s/p GI Bleed on anticoagulation (4) Hypothyroid by history (5) HTN (hypertension) (6) Diabetic nephropathy, periodic of hypoglycemia in the past other diagnosis History of urinary retention h/o Hypertension h/o UTI Plan: Slow hydrate Monitor renal parameters IV Protonix Avoid beta blockers due to bradycardia Keep the blood pressure and blood sugar in check Per orders Discussed with Rafa Lyon MD Dec 03, 2019 19:53
--- NOTE | 2019-12-03 19:54 | NUR ---
HAND-OFF: Report given to LOU Pinto. Patient is in stable condition, plan of care endorsed.
[2019-12-03 20:00] VITALS: BP 145/79
[2019-12-03] MEDS ORDERED: HydrALAZINE 25mg tab ORAL PRN (20:15)
[2019-12-03] MEDS: Pantoprazole Inj IVP SCH (20:58)
[2019-12-03] MEDS ORDERED: Atorvastatin 80mg tab ORAL SCH (21:00)
[2019-12-03] MEDS ORDERED: Tamsulosin 0.4mg cap ORAL SCH (21:00)
[2019-12-04] VITALS: BP 136/69
[2019-12-04 04:00] VITALS: BP 139/57
--- NOTE | 2019-12-04 06:00 | Consultation ---
History of Present Illness General Chief Complaint: Abnormal Labs Present Illness Allergies: Coded Allergies: No Known Allergies (Unverified , 10/07/17) Medication History Scheduled Amlodipine Besylate* (Amlodipine Besylate*), 5 MG ORAL Q12HR, (Reported) Ascorbic Acid* (Vitamin C*), 500 MG ORAL DAILY, (Reported) Aspirin* (Aspir 81*), 81 MG ORAL DAILY, (Reported) Atorvastatin Calcium* (Atorvastatin Calcium*), 80 MG ORAL BEDTIME, (Reported) Clopidogrel Bisulfate* (Plavix*), 75 MG ORAL DAILY, (Reported) Docusate Sodium* (Docusate Sodium*), 100 MG ORAL TWICE A DAY, (Reported) Ergocalciferol (Vitamin D2)* (Vitamin D*), 50,000 UNIT ORAL ONCE A WEEK, ( Reported) Ferrous Sulfate* (Ferrous Sulfate*), 325 MG ORAL TWICE A DAY, (Reported) Finasteride* (Proscar*), 5 MG ORAL DAILY, (Reported) Folic Acid* (Folic Acid*), 1 MG ORAL DAILY, (Reported) Furosemide* (Lasix*), 40 MG ORAL DAILY, (Reported) Insulin Aspart (Novolog), 100 UNIT SQ SLIDING SCALE, (Reported) Insulin Detemir (Levemir), 12 UNITS SUBQ BEDTIME, (Reported) Levothyroxine Sodium* (Levothyroxine Sodium*), 200 MCG ORAL DAILY, (Reported) Levothyroxine Sodium* (Levothyroxine Sodium*), 150 MCG ORAL DAILY, (Reported) Metoprolol Tartrate* (Metoprolol Tartrate*), 25 MG ORAL EVERY 12 HOURS, ( Reported) Mirtazapine* (Mirtazapine*), 15 MG ORAL BEDTIME, (Reported) Pantoprazole* (Pantoprazole*), 40 MG ORAL DAILY, (Reported) Tamsulosin HCl (Flomax), 0.4 MG ORAL BID, (Reported) Tamsulosin Hcl (Tamsulosin Hcl*), 0.4 MG ORAL BEDTIME, (Reported) Vancomycin HCl (Vancomycin HCl), 125 MG PO QID, (Reported) Vit B Cmplx 3/Fa/Vit C/Biotin (Nephro-Kym Rx Tablet), 1 EACH PO DAILY, ( Reported) Scheduled PRN Acetaminophen* (Acetaminophen 325MG Tablet*), 650 MG ORAL Q6H PRN for Pain Scale (3-5), (Reported) Clonidine Hcl* (Catapres*), 0.1 MG ORAL EVERY 6 HOURS PRN for SBP>180, (Reported ) Polyethylene Glycol 3350* (Miralax*), 17 GM ORAL DAILY PRN for Constipation, ( Reported) Miscellaneous Medications Glucagon,Human Recombinant (Glucagon Emergency Kit), 1 MG IJ, (Reported) Patient History Healthcare decision maker Resuscitation status Advanced Directive on File Physical Exam Last 24 Hour Vital Signs Date Time Temp Pulse Resp B/P (MAP) Pulse Ox O2 Delivery O2 Flow Rate FiO2 12/04/19 04:00 66 12/04/19 04:00 97.9 89 18 139/57 (84) 95 12/04/19 00:00 98.0 50 16 136/69 (91) 95 12/04/19 00:00 48 12/03/19 20:00 97.7 70 18 145/79 (101) 96 12/03/19 20:00 61 12/03/19 18:50 97.8 82 19 121/72 (88) 90 12/03/19 18:42 97.3 63 22 131/50 95 Room Air 12/03/19 16:54 97.3 52 21 131/50 91 Room Air 12/03/19 14:00 97.3 52 20 137/110 94 Room Air 12/03/19 12:00 97.3 52 20 147/75 93 Room Air 12/03/19 11:24 97.3 53 20 151/72 (98) 93 Room Air Laboratory Tests Test 12/03/19 11:47 12/03/19 12:30 12/03/19 17:00 White Blood Count 6.8 K/UL (4.8-10.8) Red Blood Count 2.71 M/UL (4.70-6.10) L Hemoglobin 8.3 G/DL (14.2-18.0) L Hematocrit 25.1 % (42.0-52.0) L Mean Corpuscular Volume 93 FL (80-99) Mean Corpuscular Hemoglobin 30.9 PG (27.0-31.0) Mean Corpuscular Hemoglobin Concent 33.2 G/DL (32.0-36.0) Red Cell Distribution Width 14.3 % (11.6-14.8) Platelet Count 206 K/UL (150-450) Mean Platelet Volume 7.4 FL (6.5-10.1) Neutrophils (%) (Auto) 69.4 % (45.0-75.0) Lymphocytes (%) (Auto) 17.2 % (20.0-45.0) L Monocytes (%) (Auto) 5.6 % (1.0-10.0) Eosinophils (%) (Auto) 6.9 % (0.0-3.0) H Basophils (%) (Auto) 1.0 % (0.0-2.0) Prothrombin Time 11.5 SEC (9.30-11.50) Prothromb Time International Ratio 1.1 (0.9-1.1) Activated Partial Thromboplast Time 25 SEC (23-33) Sodium Level 144 MMOL/L (136-145) Potassium Level 5.1 MMOL/L (3.5-5.1) Chloride Level 109 MMOL/L (98-107) H Carbon Dioxide Level 24 MMOL/L (21-32) Anion Gap 12 mmol/L (5-15) Blood Urea Nitrogen 62 mg/dL (7-18) H Creatinine 2.6 MG/DL (0.55-1.30) H Estimat Glomerular Filtration Rate 25.0 mL/min (>60) Glucose Level 140 MG/DL (74-106) H Lactic Acid Level 0.60 mmol/L (0.4-2.0) Calcium Level 9.3 MG/DL (8.5-10.1) Total Bilirubin 0.4 MG/DL (0.2-1.0) Aspartate Amino Transf (AST/SGOT) 17 U/L (15-37) Alanine Aminotransferase (ALT/SGPT) 40 U/L (12-78) Alkaline Phosphatase 99 U/L (46-116) Total Creatine Kinase 83 U/L (26-308) Creatine Kinase MB 1.8 NG/ML (0.0-3.6) Creatine Kinase MB Relative Index 2.1 Troponin I 0.510 ng/mL (0.000-0.056) Total Protein 7.1 G/DL (6.4-8.2) Albumin 3.4 G/DL (3.4-5.0) Globulin 3.7 g/dL Albumin/Globulin Ratio 0.9 (1.0-2.7) L Urine Color Pale yellow Urine Appearance Clear Urine pH 5 (4.5-8.0) Urine Specific Gordon 1.010 (1.005-1.035) Urine Protein 3+ (NEGATIVE) H Urine Glucose (UA) Negative (NEGATIVE) Urine Ketones Negative (NEGATIVE) Urine Blood Negative (NEGATIVE) Urine Nitrite Negative (NEGATIVE) Urine Bilirubin Negative (NEGATIVE) Urine Urobilinogen Normal MG/DL (0.0-1.0) Urine Leukocyte Esterase Negative (NEGATIVE) Urine RBC 0-2 /HPF (0 - 0) H Urine WBC 2-4 /HPF (0 - 0) Urine Squamous Epithelial Cells None /LPF (NONE/OCC) Urine Bacteria Few /HPF (NONE) Height (Feet): 5 Height (Inches): 8.00 Weight (Pounds): 218 Medications Current Medications Medications (Trade) Dose Ordered Sig/Leon Route PRN Reason Start Time Stop Time Status Last Admin Dose Admin Acetaminophen (Tylenol) 500 mg Q6H PRN ORAL Mild Pain/Temp > 100.5 12/03/19 19:15 01/02/20 19:14 Acetaminophen (Tylenol) 650 mg Q6H PRN ORAL Pain Scale (3-5) 12/03/19 20:15 01/02/20 20:14 Amlodipine Besylate (Norvasc) 5 mg DAILY ORAL 12/04/19 09:00 01/03/20 08:59 Aspirin (Ecotrin) 81 mg DAILY ORAL 12/04/19 09:00 01/18/20 08:59 Atorvastatin Calcium (Lipitor) 80 mg BEDTIME ORAL 12/03/19 21:00 03/02/20 20:59 12/03/19 20:58 Clopidogrel Bisulfate (Plavix) 75 mg DAILY ORAL 12/04/19 09:00 01/03/20 08:59 Docusate Sodium (Colace) 100 mg THREE TIMES A DAY ORAL 12/04/19 09:00 01/03/20 08:59 Finasteride (Proscar) 5 mg DAILY ORAL 12/04/19 09:00 03/03/20 08:59 Folic Acid (Folate) 1 mg DAILY ORAL 12/04/19 09:00 01/03/20 08:59 Hydralazine HCl (Apresoline) 25 mg Q4H PRN ORAL BP over 160 systolic 12/03/19 20:15 03/02/20 20:14 Levothyroxine Sodium (Synthroid) 200 mcg ACBREAKFAST ORAL 12/04/19 06:30 01/03/20 06:29 Mirtazapine (Remeron) 15 mg HSPRN PRN ORAL Insomnia 12/03/19 20:15 03/02/20 20:14 Pantoprazole (Protonix) 40 mg EVERY 12 HOURS IVP 12/03/19 21:00 01/02/20 20:59 12/03/19 20:58 Sodium Chloride 1,000 ml @ 50 mls/hr Q20H IV 12/03/19 20:00 01/02/20 19:59 12/03/19 20:58 Tamsulosin HCl (Flomax) 0.4 mg BEDTIME ORAL 12/03/19 21:00 01/02/20 20:59 12/03/19 20:58 Assessment/Plan Assessment/Plan: Hematology Consultation REQ MD: Oni Liu DOS: 12/04/2019 RFC: anemia, coagulopathy, hx coumadin use HPI 64y old male, with hx as noted below, well known to me, at this time p/w anemia , as well as low bs, ned. The patient is on Coumadin after suffering a stroke. Has recently not been takin it. The patient denies any nausea or melena. Has a history of hematemesis and heme consulted, recently has been on coumadin. He denies any abdominal pain. The alf facility assumed that he was vomiting this up. He denies this. Patient wears plates/dentures. He states he has not taken them out for a long time. He denies any pain. Labs have been reviewed, cbc is noted as well, renal recs noted as well. He denies any chest pain, shortness of breath, orthopnea or hemoptysis. He denies fevers or chills. Patient status post stroke with left-sided weakness. Patient is anticoagulated on Coumadin. History of diabetes. Allergies: Coded Allergies: No Known Allergies (Unverified , 10/07/17) Patient History Past Medical History: see triage record Past Surgical History: other - Toe amputations Social History: Denies: smoking Social History Narrative [facility] facility Reviewed Nursing Documentation: PMH: Agreed; PSxH: Agreed Past Medical History: No History, Except For Hx Hypertension: Yes Hx Diabetes: Yes Hx Cancer: No Hx Gastrointestinal Problems: No Hx Neurological Problems: Yes Hx Cerebrovascular Accident: Yes - Hemiplegia, Hemiparesis, affects L side Review of Systems All Other Systems: negative except mentioned in HPI PE Vitals: reviewed General Appearance: NAD + chronically ill HEENT: normocephalic, atraumatic ++ biconjunctival hemorrhage Neck: non-tender, normal alignment Respiratory/Chest: nromal breath sounds bilaterally Cardiovascular/Chest: normal peripheral pulses, normal rate Abdomen: normal bowel sounds, soft, nontender Extremities: normal range of motion, Right arm skin tear, left sided weaknness NEURO: ++ left sided weakness Labs: noted Imaging: reviewed Assessment and Recs: # Anemia due to underlying GI bleed -- patient presents with hematemesis before and now with barb --> as per GI eval, may need endoscopy as needed --> has been started on ppi --> cea recently 1.8 --> Hgb goal >7. Transfuse prn. --> Will sign consent if necessary --> Epogen not started. IRON IV x 5 days completed if ferritin again low --> Consider octreotide gtt as per gi eval --> Medications have been reviewed --> Hgb 8.8 -->8.6-->8.7-->8.9 # Coagulation defect/Bleeding, multifactorial usually related to poor PO intake versus medications, in this case related to coumadin --> administer Vitamin K if patient is bleeding or FFP if the INR is >10 --> hold off on ffp unless active procedure/bleeding, first begin with vit K 10 --> mixing study as needed --> HAVE STOPPED COUMADIN --> per cards, hold off at this time, is aware of afib hx --> okay for asa and plavix # Anemia due to folic acid deficiency/iron deficiency as well --> prior folic acid<5 --> recheck levels # FTT -- failure to thrive --> mirtazapine per gi # Ned on ckd --> as per Dr. Farr --> recs noted --> hydration as needed --> meds noted # NSTEMI hx --> per cards # c.diff hx --> now resolved # Dvt ppx on scds now --> on plavix and asa The timing of this note does not necessarily reflect the time of the patient was seen. Greatly appreciate consultation. Nate Whyte MD Dec 04, 2019 06:00
[2019-12-04 06:47] LABS: BASOPHILS % (AUTO) 0.9 % (0.0-2.0); HEMATOCRIT 24.5 % (42.0-52.0); HEMOGLOBIN 8.3 G/DL (14.2-18.0); LYMPHOCYTES % (AUTO) 21.6 % (20.0-45.0); MEAN CORPUSCULAR VOLUME 92 FL (80-99); MONOCYTES % (AUTO) 7.2 % (1.0-10.0); NEUTROPHILS % (AUTO) 62.4 % (45.0-75.0); PLATELET COUNT 206 K/UL (150-450); RED BLOOD COUNT 2.66 M/UL (4.70-6.10); RED CELL DISTRIBUTION WIDTH 14.2 % (11.6-14.8); WHITE BLOOD COUNT 6.6 K/UL (4.8-10.8)
[2019-12-04 07:08] LABS: % IRON SATURATION 19 % (15-50); IRON 40 ug/dL (50-175); TOTAL IRON BINDING CAPACITY 211 ug/dL (250-450)
[2019-12-04 07:16] LABS: GAMMA GLUTAMYL TRANSPEPTIDASE 30 U/L (5-85); PHOSPHORUS 4.2 MG/DL (2.5-4.9)
[2019-12-04 07:32] LABS: ALANINE AMINOTRANSFERASE 33 U/L (12-78); ALBUMIN 3.3 G/DL (3.4-5.0); ALBUMIN/GLOBULIN RATIO 0.9 (1.0-2.7); ALKALINE PHOSPHATASE 99 U/L (46-116); ANION GAP 13 mmol/L (5-15); ASPARTATE AMINO TRANSFERASE 19 U/L (15-37); BILIRUBIN,TOTAL 0.5 MG/DL (0.2-1.0); BLOOD UREA NITROGEN 57 mg/dL (7-18); CALCIUM 8.7 MG/DL (8.5-10.1); CARBON DIOXIDE 22 MMOL/L (21-32); CHLORIDE 111 MMOL/L (98-107); CHOLESTEROL 80 MG/DL (< 200); CREATININE 2.5 MG/DL (0.55-1.30); FERRITIN 133 NG/ML (8-388); HDL CHOLESTEROL 33 MG/DL (40-60); POTASSIUM 4.5 MMOL/L (3.5-5.1); SODIUM 146 MMOL/L (136-145); TRIGLYCERIDES 60 MG/DL (30-150)
--- NOTE | 2019-12-04 07:50 | NUR ---
troponin reported 0.528 at 0750 am >>> dr. Bazan made aware
[2019-12-04 08:00] VITALS: BP 145/67
[2019-12-04] MEDS: Aspirin EC 81mg tab ORAL SCH (11:44)
[2019-12-04] MEDS: Pantoprazole Inj IVP SCH ×2 (11:44→22:49)
[2019-12-04] MEDS: Docusate 100mg cap ORAL SCH ×3 (11:45→19:10)
[2019-12-04 12:00] VITALS: BP 140/67
--- NOTE | 2019-12-04 12:04 | Cardiac Electrophysiology PN ---
Subjective Subjective [id number] Objective Last 24 Hour Vital Signs Date Time Temp Pulse Resp B/P (MAP) Pulse Ox O2 Delivery O2 Flow Rate FiO2 12/04/19 11:45 66 139/57 12/04/19 04:00 66 12/04/19 04:00 97.9 89 18 139/57 (84) 95 12/04/19 00:00 98.0 50 16 136/69 (91) 95 12/04/19 00:00 48 12/03/19 20:00 97.7 70 18 145/79 (101) 96 12/03/19 20:00 61 12/03/19 19:40 Room Air 12/03/19 18:50 97.8 82 19 121/72 (88) 90 12/03/19 18:42 97.3 63 22 131/50 95 Room Air 12/03/19 16:54 97.3 52 21 131/50 91 Room Air 12/03/19 14:00 97.3 52 20 137/110 94 Room Air Intake and Output 12/03/19 12/04/19 19:00 07:00 Output Total 800 ml Balance -800 ml Output Urine Total 800 ml # Bowel Movements 1 Laboratory Tests Test 12/03/19 12:30 12/03/19 17:00 12/04/19 05:49 Prothrombin Time 11.5 SEC (9.30-11.50) Prothromb Time International Ratio 1.1 (0.9-1.1) Activated Partial Thromboplast Time 25 SEC (23-33) Sodium Level 144 MMOL/L (136-145) 146 MMOL/L (136-145) H Potassium Level 5.1 MMOL/L (3.5-5.1) 4.5 MMOL/L (3.5-5.1) Chloride Level 109 MMOL/L (98-107) H 111 MMOL/L (98-107) H Carbon Dioxide Level 24 MMOL/L (21-32) 22 MMOL/L (21-32) Anion Gap 12 mmol/L (5-15) 13 mmol/L (5-15) Blood Urea Nitrogen 62 mg/dL (7-18) H 57 mg/dL (7-18) H Creatinine 2.6 MG/DL (0.55-1.30) H 2.5 MG/DL (0.55-1.30) H Estimat Glomerular Filtration Rate 25.0 mL/min (>60) 26.1 mL/min (>60) Glucose Level 140 MG/DL (74-106) H 83 MG/DL (74-106) Lactic Acid Level 0.60 mmol/L (0.4-2.0) Calcium Level 9.3 MG/DL (8.5-10.1) 8.7 MG/DL (8.5-10.1) Total Bilirubin 0.4 MG/DL (0.2-1.0) 0.5 MG/DL (0.2-1.0) Aspartate Amino Transf (AST/SGOT) 17 U/L (15-37) 19 U/L (15-37) Alanine Aminotransferase (ALT/SGPT) 40 U/L (12-78) 33 U/L (12-78) Alkaline Phosphatase 99 U/L (46-116) 99 U/L (46-116) Total Creatine Kinase 83 U/L (26-308) Creatine Kinase MB 1.8 NG/ML (0.0-3.6) Creatine Kinase MB Relative Index 2.1 Troponin I 0.510 ng/mL (0.000-0.056) 0.528 ng/mL (0.000-0.056) Total Protein 7.1 G/DL (6.4-8.2) 6.8 G/DL (6.4-8.2) Albumin 3.4 G/DL (3.4-5.0) 3.3 G/DL (3.4-5.0) L Globulin 3.7 g/dL 3.5 g/dL Albumin/Globulin Ratio 0.9 (1.0-2.7) L 0.9 (1.0-2.7) L Urine Color Pale yellow Urine Appearance Clear Urine pH 5 (4.5-8.0) Urine Specific [place] 1.010 (1.005-1.035) Urine Protein 3+ (NEGATIVE) H Urine Glucose (UA) Negative (NEGATIVE) Urine Ketones Negative (NEGATIVE) Urine Blood Negative (NEGATIVE) Urine Nitrite Negative (NEGATIVE) Urine Bilirubin Negative (NEGATIVE) Urine Urobilinogen Normal MG/DL (0.0-1.0) Urine Leukocyte Esterase Negative (NEGATIVE) Urine RBC 0-2 /HPF (0 - 0) H Urine WBC 2-4 /HPF (0 - 0) Urine Squamous Epithelial Cells None /LPF (NONE/OCC) Urine Bacteria Few /HPF (NONE) White Blood Count 6.6 K/UL (4.8-10.8) Red Blood Count 2.66 M/UL (4.70-6.10) L Hemoglobin 8.3 G/DL (14.2-18.0) L Hematocrit 24.5 % (42.0-52.0) L Mean Corpuscular Volume 92 FL (80-99) Mean Corpuscular Hemoglobin 31.3 PG (27.0-31.0) H Mean Corpuscular Hemoglobin Concent 33.9 G/DL (32.0-36.0) Red Cell Distribution Width 14.2 % (11.6-14.8) Platelet Count 206 K/UL (150-450) Mean Platelet Volume 6.7 FL (6.5-10.1) Neutrophils (%) (Auto) 62.4 % (45.0-75.0) Lymphocytes (%) (Auto) 21.6 % (20.0-45.0) Monocytes (%) (Auto) 7.2 % (1.0-10.0) Eosinophils (%) (Auto) 8.0 % (0.0-3.0) H Basophils (%) (Auto) 0.9 % (0.0-2.0) Hemoglobin A1c 6.2 % (4.3-6.0) H Uric Acid 7.0 MG/DL (2.6-7.2) Phosphorus Level 4.2 MG/DL (2.5-4.9) Magnesium Level 1.8 MG/DL (1.8-2.4) Iron Level 40 ug/dL (50-175) L Total Iron Binding Capacity 211 ug/dL (250-450) L Percent Iron Saturation 19 % (15-50) Unsaturated Iron Binding 171 ug/dL (112-346) Ferritin 133 NG/ML (8-388) Gamma Glutamyl Transpeptidase 30 U/L (5-85) C-Reactive Protein, Quantitative 0.5 mg/dL (0.00-0.90) Pro-B-Type Natriuretic Peptide 98998 pg/mL (0-125) H Triglycerides Level 60 MG/DL (30-150) Cholesterol Level 80 MG/DL (< 200) LDL Cholesterol 38 mg/dL (<100) HDL Cholesterol 33 MG/DL (40-60) L Cholesterol/HDL Ratio 2.4 (3.3-4.4) L Vitamin B12 Level 672 PG/ML (193-986) Folate 36.1 NG/ML (8.6-58.9) Thyroid Stimulating Hormone (TSH) 6.202 uiU/mL (0.358-3.740) Castillo Bazan MD Dec 04, 2019 12:04
--- NOTE | 2019-12-04 12:06 | Nephrology Progress Note ---
Assessment/Plan Problem List: (1) Renal failure (ARF), acute on chronic (2) Anemia in chronic kidney disease (CKD) (3) Diabetic nephropathy (4) Elevated troponin Assessment 1) Renal failure (ARF), acute on chronic (2) Elevated troponin, bradycardia (3) Anemia of chronic kidney disease, s/p GI Bleed on anticoagulation (4) Hypothyroid by history (5) HTN (hypertension) (6) Diabetic nephropathy, periodic of hypoglycemia in the past other diagnosis History of urinary retention h/o Hypertension h/o UTI Plan Slow hydrate Monitor renal parameters IV Protonix Avoid beta blockers due to bradycardia Keep the blood pressure and blood sugar in check Per orders Discussed with RN Subjective ROS Limited/Unobtainable: No Constitutional: Reports: malaise Objective Objective Last 24 Hour Vital Signs Date Time Temp Pulse Resp B/P (MAP) Pulse Ox O2 Delivery O2 Flow Rate FiO2 12/04/19 11:45 66 139/57 12/04/19 04:00 66 12/04/19 04:00 97.9 89 18 139/57 (84) 95 12/04/19 00:00 98.0 50 16 136/69 (91) 95 12/04/19 00:00 48 12/03/19 20:00 97.7 70 18 145/79 (101) 96 12/03/19 20:00 61 12/03/19 19:40 Room Air 12/03/19 18:50 97.8 82 19 121/72 (88) 90 12/03/19 18:42 97.3 63 22 131/50 95 Room Air 12/03/19 16:54 97.3 52 21 131/50 91 Room Air 12/03/19 14:00 97.3 52 20 137/110 94 Room Air Intake and Output 12/03/19 12/04/19 19:00 07:00 Output Total 800 ml Balance -800 ml Output Urine Total 800 ml # Bowel Movements 1 Current Medications Medications (Trade) Dose Ordered Sig/Leon Route PRN Reason Start Time Stop Time Status Last Admin Dose Admin Acetaminophen (Tylenol) 500 mg Q6H PRN ORAL Mild Pain/Temp > 100.5 12/03/19 19:15 01/02/20 19:14 Acetaminophen (Tylenol) 650 mg Q6H PRN ORAL Pain Scale (3-5) 12/03/19 20:15 01/02/20 20:14 Amlodipine Besylate (Norvasc) 5 mg DAILY ORAL 12/04/19 09:00 01/03/20 08:59 12/04/19 11:45 Aspirin (Ecotrin) 81 mg DAILY ORAL 12/04/19 09:00 01/18/20 08:59 12/04/19 11:44 Atorvastatin Calcium (Lipitor) 80 mg BEDTIME ORAL 12/03/19 21:00 03/02/20 20:59 12/03/19 20:58 Clopidogrel Bisulfate (Plavix) 75 mg DAILY ORAL 12/04/19 09:00 01/03/20 08:59 12/04/19 11:45 Docusate Sodium (Colace) 100 mg THREE TIMES A DAY ORAL 12/04/19 09:00 01/03/20 08:59 12/04/19 11:45 Finasteride (Proscar) 5 mg DAILY ORAL 12/04/19 09:00 03/03/20 08:59 12/04/19 11:44 Folic Acid (Folate) 1 mg DAILY ORAL 12/04/19 09:00 01/03/20 08:59 12/04/19 11:45 Hydralazine HCl (Apresoline) 25 mg Q4H PRN ORAL BP over 160 systolic 12/03/19 20:15 03/02/20 20:14 Levothyroxine Sodium (Synthroid) 200 mcg ACBREAKFAST ORAL 12/04/19 06:30 01/03/20 06:29 12/04/19 06:24 Mirtazapine (Remeron) 15 mg HSPRN PRN ORAL Insomnia 12/03/19 20:15 03/02/20 20:14 Pantoprazole (Protonix) 40 mg EVERY 12 HOURS IVP 12/03/19 21:00 01/02/20 20:59 12/04/19 11:44 Sodium Chloride 1,000 ml @ 50 mls/hr Q20H IV 12/03/19 20:00 01/02/20 19:59 12/03/19 20:58 Tamsulosin HCl (Flomax) 0.4 mg BEDTIME ORAL 12/03/19 21:00 01/02/20 20:59 12/03/19 20:58 Laboratory Tests 12/03/19 12:30: Prothrombin Time 11.5, Prothromb Time International Ratio 1.1, Activated Partial Thromboplast Time 25, Sodium Level 144, Potassium Level 5.1, Chloride Level 109H, Carbon Dioxide Level 24, Anion Gap 12, Blood Urea Nitrogen 62H, Creatinine 2.6H, Estimat Glomerular Filtration Rate 25.0, Glucose Level 140H, Lactic Acid Level 0.60, Calcium Level 9.3, Total Bilirubin 0.4, Aspartate Amino Transf (AST/SGOT) 17, Alanine Aminotransferase (ALT/SGPT) 40, Alkaline Phosphatase 99, Total Creatine Kinase 83, Creatine Kinase MB 1.8, Creatine Kinase MB Relative Index 2.1, Troponin I 0.510H, Total Protein 7.1, Albumin 3.4 , Globulin 3.7, Albumin/Globulin Ratio 0.9L 12/03/19 17:00: Urine Color Pale yellow, Urine Appearance Clear, Urine pH 5, Urine Specific [place] 1.010, Urine Protein 3+H, Urine Glucose (UA) Negative, Urine Ketones Negative, Urine Blood Negative, Urine Nitrite Negative, Urine Bilirubin Negative , Urine Urobilinogen Normal, Urine Leukocyte Esterase Negative, Urine RBC 0-2H, Urine WBC 2-4, Urine Squamous Epithelial Cells None, Urine Bacteria Few 12/04/19 05:49: Sodium Level 146H, Potassium Level 4.5, Chloride Level 111H, Carbon Dioxide Level 22, Anion Gap 13, Blood Urea Nitrogen 57H, Creatinine 2.5H, Estimat Glomerular Filtration Rate 26.1, Glucose Level 83, Calcium Level 8.7, Total Bilirubin 0.5, Aspartate Amino Transf (AST/SGOT) 19, Alanine Aminotransferase ( ALT/SGPT) 33, Alkaline Phosphatase 99, Troponin I 0.528H, Total Protein 6.8, Albumin 3.3L, Globulin 3.5, Albumin/Globulin Ratio 0.9L, White Blood Count 6.6, Red Blood Count 2.66L, Hemoglobin 8.3L, Hematocrit 24.5L, Mean Corpuscular Volume 92, Mean Corpuscular Hemoglobin 31.3H, Mean Corpuscular Hemoglobin Concent 33.9, Red Cell Distribution Width 14.2, Platelet Count 206, Mean Platelet Volume 6.7, Neutrophils (%) (Auto) 62.4, Lymphocytes (%) (Auto) 21.6, Monocytes (%) (Auto) 7.2, Eosinophils (%) (Auto) 8.0H, Basophils (%) (Auto) 0.9 , Hemoglobin A1c 6.2H, Uric Acid 7.0, Phosphorus Level 4.2, Magnesium Level 1.8 , Iron Level 40L, Total Iron Binding Capacity 211L, Percent Iron Saturation 19, Unsaturated Iron Binding 171, Ferritin 133, Gamma Glutamyl Transpeptidase 30, C- Reactive Protein, Quantitative 0.5, Pro-B-Type Natriuretic Peptide [id number], Triglycerides Level 60, Cholesterol Level 80, LDL Cholesterol 38, HDL Cholesterol 33L, Cholesterol/HDL Ratio 2.4L, Vitamin B12 Level 672, Folate 36.1 , Thyroid Stimulating Hormone (TSH) 6.202H Height (Feet): 5 Height (Inches): 8.00 Weight (Pounds): 218 General Appearance: no apparent distress Cardiovascular: normal rate Respiratory/Chest: decreased breath sounds Abdomen: soft Rafa Farr MD Dec 04, 2019 12:06
--- NOTE | 2019-12-04 12:28 | NUR ---
CASE MANAGEMENT:REVIEW 64 YR OLD MALE BIBA FROM [facility] CC: ABNORMAL LABS SI: ANEMIA. NOSE BLEED. ELEVATED TROPONIN ANGEL. CHF. BRADYCARDIA 97.4 53 20 151/72 93% ON RA H/H-8.3/25.1 BUN+62 CR+2.6 TROPONIN(+) 0.528 BNP+[id number] IS: 1L NS BOLUS PROTONIX GTT OXYMETAZOLINE NASAL SPRAY CT HEAD CHEST XRAY BLOOD CX : TO TELEMETRY DCP: RETURN TO [facility]
--- NOTE | 2019-12-04 12:52 | Diagnostic Imaging Report ---
Indication:Elevated Bun and Creatinine. Technique: Grayscale and duplex Doppler imaging of the kidneys performed. Comparison: None Findings: The size, contour, and echogenicity of both kidneys are within normal limits. There is a cyst in the right kidney centrally measuring 1.9 cm. There is no hydronephrosis.. The right kidney measures 11.8 cm. in length. The left kidney measures 10.4 cm. in length. There is a right pleural effusion. The IVC is patent. Urinary bladder is unremarkable. IMPRESSION: No hydronephrosis. Right renal cyst
[2019-12-04] MEDS: Nitroglycerin Patch 0.4mg TDERMAL SCH (13:54)
[2019-12-04] MEDS: Tamsulosin 0.4mg cap ORAL SCH ×2 (13:56→19:10)
[2019-12-04] MEDS ORDERED: Iron Sucrose 200 MG in NS 50 ML IV SCH (14:00)
[2019-12-04 16:00] VITALS: BP 140/70
--- NOTE | 2019-12-04 16:14 | NUR ---
*-* INSURANCE *-* ALL CLINICALS AND REVIEWS HAVE BEEN FAXED TO: [employer] [employer] [facility] Ref# ph# [phone] fax# [phone]
--- NOTE | 2019-12-04 16:45 | Consultation ---
DATE OF CONSULTATION: 12/04/2019 INFECTIOUS DISEASES CONSULTATION CONSULTING PHYSICIAN: Troy Yeboah M.D. PRIMARY ATTENDING PHYSICIAN: Oni Schilling M.D. REASON FOR CONSULTATION: Nasal bleeding, sphenoid sinus mass. HISTORY OF PRESENT ILLNESS: The patient is a 64-year-old white male who is a custodial resident admitted yesterday for nasal bleeding and anemia, was found to have bradycardia, blood pressure was poorly controlled. The patient has on and off nose bleeding for 3 to 4 days. No fever. No chills. No systemic symptoms. PAST MEDICAL HISTORY: Diabetes mellitus, hypertension, chronic kidney disease, CVA with left hemiplegia, hypothyroidism, history of toe amputation, BPH. ALLERGIES: No known drug allergies. MEDICATIONS: Getting Lipitor, Lopressor, IV iron, Flomax, aspirin, Plavix, finasteride, amlodipine, levothyroxine, Protonix, Tylenol, Remeron, hydralazine, Tylenol. SOCIAL HISTORY: [facility] resident. Single. REVIEW OF SYSTEMS: The patient had no complaint today. No fever. No chills. No headache. No bleeding today from nose. No coughing. No nausea. No vomiting. No diarrhea. PHYSICAL EXAMINATION: VITAL SIGNS: Temperature 97.9, pulse 56, blood pressure 140/67. GENERAL APPEARANCE: No acute distress, well developed. HEAD AND NECK: No oral lesion. Have some dried blood in nostrils. HEART: Bradycardic. LUNGS: Clear. ABDOMEN: Soft, nontender. EXTREMITIES: No edema. NEUROLOGIC: Awake, alert, responsive. LABORATORY AND DIAGNOSTIC DATA: WBC 6.6, hemoglobin 8.3, hematocrit 24.5, platelets is 206. Sodium 146, potassium 4.5, chloride 111, bicarb 22, BUN 57, creatinine 2.5. Hemoglobin A1c 6.2. Troponin is elevated 0.528. BNP elevated 12,905. TSH is elevated at 6.2. Head CT scan showed old MCA, right MCA territory infarct, large expanding mass involving sphenoid sinus. Chest x-ray, congestive heart failure. Renal ultrasound shows no hydronephrosis, right renal cyst. IMPRESSION: 1. Sphenoid mass with nasal bleeding. 2. Acute renal failure. 3. Chronic kidney disease. 4. Diabetes mellitus type 2. 5. Hypertension. 6. History of CVA. 7. Hypothyroidism. 8. BPH. RECOMMENDATION: Observe off antibiotic. ENT evaluation and biopsy of the sinus mass. At the end of my exam, I thank Dr. Schilling, for involving me in the care of this patient. Troy Yeboah M.D. DR: Milly JOB#: [id number] CC: [email or web address]
--- NOTE | 2019-12-04 18:00 | Consultation ---
DATE OF CONSULTATION: 12/04/2019 CARDIOLOGY CONSULTATION CONSULTING PHYSICIAN: Castillo Bazan M.D. REFERRING PHYSICIAN: Oni Schilling M.D. REASON FOR CONSULTATION: Elevated troponin and congestive heart failure in a patient with history of coronary artery disease and paroxysmal atrial fibrillation. HISTORY OF PRESENT ILLNESS: The patient is a 64-year-old gentleman who was just recently discharged from the hospital, was brought into the hospital from skilled nursing for severe anemia, low blood sugar, and renal failure. The patient is on Coumadin for paroxysmal atrial fibrillation and has usually taking it. The patient also has history of CVA. He also has history of hematemesis, was also evaluated by Dr. Whyte. The patient is noted to have elevated troponin again and Cardiology consultation was obtained for further evaluation. At the time of my evaluation, the patient denies any chest pain, palpitation, or shortness of breath. REVIEW OF SYSTEMS: Negative other than what was mentioned in history of present illness. PAST MEDICAL HISTORY: As mentioned above. FAMILY HISTORY: Noncontributory. SOCIAL HISTORY: alf resident. Does not smoke or drink alcohol. PHYSICAL EXAMINATION: VITAL SIGNS: Blood pressure 139/57, pulse 88, respirations 18, and temperature 98. HEAD AND NECK: Showed no JVD. LUNGS: Clear. CARDIOVASCULAR: Shows regular S1 and S2 with no gallop or murmur. ABDOMEN: Soft. EXTREMITIES: Left hemiplegia. LABORATORY AND DIAGNOSTIC DATA: His labs show white count of 6.3, hemoglobin 8.2, hematocrit 24.5, and platelet count of 206,000. Sodium is 146, potassium 4.5, BUN of 57, creatinine of 2.5, and glucose of 83. First troponin 0.51 and 0.52 and BNP is 12,905. On previous admission in October, his troponin was also 0.8 and 0.3. ASSESSMENT AND PLAN: 1. Elevated troponin. Troponin levels are flat. The patient has a history of prior troponin elevation. This is likely due to the patient's renal failure, has a creatinine of 2.6. Currently denies any chest pain. He is already on aspirin and Plavix and add metoprolol to his medical regimen. The patient is also on aspirin and Plavix. 2. Hypertension, on Norvasc 5 mg daily. I will add Lopressor 25 mg b.i.d. to his medical regimen. 3. Hypothyroidism, on Synthroid. 4. Hyperlipidemia, on Lipitor. 5. Anemia. Further evaluation by Dr. Whyte. 6. Renal failure due to diabetic nephropathy. Further evaluation by Dr. Farr. Thank you very much for allowing me to participate in the care of this patient. Please do not hesitate to contact me for any questions regarding my evaluation. Castillo Bazan M.D. DR: MOISES JOB#: [id number] CC:
--- NOTE | 2019-12-04 18:30 | History and Physical Report ---
DATE OF ADMISSION: 12/03/2019 HISTORY OF PRESENT ILLNESS: The patient is a poor historian. He has altered mental status, who is admitted for azotemia, elevated high blood pressure, elevated troponin, and recurrent nosebleed as well as UTI and also has bradycardia. The patient also has a sphenoid mass. I cannot get any history from the patient, the patient is a poor historian. He also has mild anemia and admitted for those reasons. PAST MEDICAL HISTORY: Hypertension, recurrent nosebleeds, constipation, iron-deficiency anemia, BPH, dementia, NIDDM, hypothyroidism, depression, sphenoid mass, CHF, history of bradycardia and hypothyroidism, history of failure to thrive, history of chronic renal insufficiency. PAST SURGICAL HISTORY: Denies. ALLERGIES: No known allergies. MEDICATIONS: Lipitor, aspirin, vitamin C, Norvasc, Levemir, Levoxyl, Protonix, Flomax. FAMILY HISTORY: Unable to obtain. SOCIAL HISTORY: Unable to obtain. REVIEW OF SYSTEMS: Unable to obtain. The patient is nonverbal. PHYSICAL EXAMINATION: VITAL SIGNS: Temperature 97.9, pulse is 69, and blood pressure is 139/67. HEENT: PERRLA. NECK: Supple. CHEST: Clear to auscultation. CARDIOVASCULAR: Bradycardic. GASTROINTESTINAL: Soft. Positive bowel sounds. No organomegaly. Abdomen is soft. Positive bowel sounds. EXTREMITIES: No edema. NEUROLOGIC: Does not follow neurological exam. Lethargic, which is at baseline at this point, non-oriented. LABORATORY AND DIAGNOSTIC DATA: WBC of 6.8, hemoglobin 8.3, and platelets of 206,000. Sodium 146, potassium 4.5, BUN of 57, creatinine of 2.5, glucose of 83. Troponin of 0.2510. ASSESSMENT AND PLAN: 1. Elevated troponin. 2. Recurrent nosebleed. 3. Hypertension. 4. Bradycardia. 5. Anemia. 6. Sphenoid mass. I have asked Dr. Nair, Dr. Farr, Dr. Alberts, and Dr. Troy Yeboah to see the patient for UTI and for above-mentioned diagnoses as well as for the above-mentioned symptoms and abnormalities. We will follow the patient closely. . Oni Schilling M.D. DR: ZENAIDA JOB#: [id number] CC:
--- NOTE | 2019-12-04 19:56 | NUR ---
NURSE NOTES: Received patient report from LOU Cobos. Patient shows no signs of distress or pain. Resting comfortably in bed. AOx 3. IV was infiltrated, a new one will be placed. Bed in the lowest position, call light within reach, brakes on, and side rails up x 3. Will continue plan of care.
[2019-12-04 20:00] VITALS: BP 142/69
[2019-12-04] MEDS: Atorvastatin 20mg tab ORAL SCH (22:49)
[2019-12-05] VITALS: BP 134/57
[2019-12-05 04:00] VITALS: BP 138/53
[2019-12-05 06:51] LABS: HEMATOCRIT 23.8 % (42.0-52.0); HEMOGLOBIN 7.9 G/DL (14.2-18.0); MEAN CORPUSCULAR VOLUME 93 FL (80-99); PLATELET COUNT 202 K/UL (150-450); RED BLOOD COUNT 2.57 M/UL (4.70-6.10); RED CELL DISTRIBUTION WIDTH 14.3 % (11.6-14.8); WHITE BLOOD COUNT 6.3 K/UL (4.8-10.8)
--- NOTE | 2019-12-05 07:22 | NUR ---
HAND-OFF: Report given to LOU Cobos. Patient shows no signs of distress or pain. Endorsed plan of care.
--- NOTE | 2019-12-05 07:42 | Hematology/Onc Progress Note ---
Assessment/Plan Assessment/Plan Assessment and Recs: # Anemia due to underlying GI bleed -- patient presents with hematemesis before and now with barb --> as per GI eval, may need endoscopy as needed --> has been started on ppi --> cea recently 1.8 --> Hgb goal >7. Transfuse prn. --> Will sign consent if necessary --> Epogen not started. iron iv but hold off for now since ferritin is 133 --> Consider octreotide gtt as per gi eval --> Medications have been reviewed --> Hgb 8.8 -->8.6-->8.7-->8.9-->7.9 # Coagulation defect/Bleeding, multifactorial usually related to poor PO intake versus medications, in this case related to coumadin --> administer Vitamin K if patient is bleeding or FFP if the INR is >10 --> hold off on ffp unless active procedure/bleeding, first begin with vit K 10 --> mixing study as needed --> HAVE STOPPED COUMADIN --> per cards, hold off at this time, is aware of afib hx --> okay for asa and plavix # Anemia due to folic acid deficiency/iron deficiency as well --> prior folic acid<5 --> recheck levels # FTT -- failure to thrive --> mirtazapine per gi # Ned on ckd --> as per Dr. Farr --> recs noted --> hydration as needed --> meds noted # NSTEMI hx --> per cards # c.diff hx --> now resolved # Dvt ppx on scds now --> on plavix and asa The timing of this note does not necessarily reflect the time of the patient was seen. Greatly appreciate consultation. Subjective Constitutional: Denies: no symptoms, chills, fever, malaise, weakness, other HEENT: Denies: no symptoms, eye pain, blurred vision, tearing, double vision, ear pain, ear discharge, nose pain, nose congestion, throat pain, throat swelling, mouth pain, mouth swelling, other Respiratory: Denies: no symptoms, cough, shortness of breath, SOB with excertion, SOB at rest, sputum, wheezing, other Gastrointestinal/Abdominal: Denies: no symptoms, abdomen distended, abdominal pain, black stools, tarry stools, blood in stool, constipated, diarrhea, difficulty swallowing, nausea, poor appetite, poor fluid intake, rectal bleeding , vomiting, other Genitourinary: Denies: no symptoms, burning, discharge, frequency, flank pain, hematuria, incontinence, pain, urgency, other Neurologic/Psychiatric: Denies: no symptoms, anxiety, depressed, emotional problems, headache, numbness, paresthesia, pre-existing deficit, seizure, tingling, tremors, weakness, other Endocrine: Denies: no symptoms, excessive sweating, flushing, intolerance to cold, intolerance to heat, increased hunger, increased thirst, increased urine, unexplained weight gain, unexplained weight loss, other Hematologic/Lymphatic: Denies: no symptoms, anemia, easy bleeding, easy bruising, adenopathy, other Allergies: Coded Allergies: No Known Allergies (Unverified , 10/07/17) Subjective 12/04 no major events, labs noted, hgb remains 7.9, no bleeding at this time Objective Objective Current Medications Medications (Trade) Dose Ordered Sig/Leon Route PRN Reason Start Time Stop Time Status Last Admin Dose Admin Acetaminophen (Tylenol) 500 mg Q6H PRN ORAL Mild Pain/Temp > 100.5 12/03/19 19:15 01/02/20 19:14 Acetaminophen (Tylenol) 650 mg Q6H PRN ORAL Pain Scale (3-5) 12/03/19 20:15 01/02/20 20:14 Amlodipine Besylate (Norvasc) 5 mg DAILY ORAL 12/04/19 09:00 01/03/20 08:59 12/04/19 11:45 Aspirin (Ecotrin) 81 mg DAILY ORAL 12/04/19 09:00 01/18/20 08:59 12/04/19 11:44 Atorvastatin Calcium (Lipitor) 40 mg BEDTIME ORAL 12/04/19 21:00 03/02/20 20:59 12/04/19 22:49 Clopidogrel Bisulfate (Plavix) 75 mg DAILY ORAL 12/04/19 09:00 01/03/20 08:59 12/04/19 11:45 Docusate Sodium (Colace) 100 mg THREE TIMES A DAY ORAL 12/04/19 09:00 01/03/20 08:59 12/04/19 19:10 Finasteride (Proscar) 5 mg DAILY ORAL 12/04/19 09:00 03/03/20 08:59 12/04/19 11:44 Hydralazine HCl (Apresoline) 25 mg Q4H PRN ORAL BP over 160 systolic 12/03/19 20:15 03/02/20 20:14 Levothyroxine Sodium (Synthroid) 200 mcg ACBREAKFAST ORAL 12/04/19 06:30 01/03/20 06:29 12/05/19 05:54 Metoprolol Tartrate (Lopressor) 25 mg EVERY 12 HOURS ORAL 12/04/19 21:00 03/03/20 20:59 12/04/19 22:53 Mirtazapine (Remeron) 15 mg HSPRN PRN ORAL Insomnia 12/03/19 20:15 03/02/20 20:14 Nitroglycerin (Ntg) 1 patch Q24H TDERMAL 12/04/19 12:30 01/03/20 12:29 12/04/19 13:54 Pantoprazole (Protonix) 40 mg EVERY 12 HOURS IVP 12/03/19 21:00 01/02/20 20:59 12/04/19 22:49 Sodium Chloride 1,000 ml @ 50 mls/hr Q20H IV 12/03/19 20:00 01/02/20 19:59 12/04/19 19:10 Tamsulosin HCl (Flomax) 0.4 mg BID ORAL 12/04/19 12:10 01/03/20 12:09 12/04/19 19:10 Last 24 Hour Vital Signs Date Time Temp Pulse Resp B/P (MAP) Pulse Ox O2 Delivery O2 Flow Rate FiO2 12/05/19 04:00 97.6 55 20 138/53 (81) 98 12/05/19 04:00 52 12/05/19 00:00 97.9 55 20 134/57 (82) 95 12/04/19 22:53 67 142/69 12/04/19 21:00 Room Air 12/04/19 20:00 98.0 51 19 142/69 (93) 95 12/04/19 20:00 50 12/04/19 16:00 98.1 56 20 140/70 (93) 95 12/04/19 16:00 54 12/04/19 13:54 140/67 12/04/19 12:00 97.9 56 20 140/67 (91) 95 12/04/19 12:00 54 12/04/19 11:45 66 139/57 12/04/19 09:00 Room Air 12/04/19 08:00 97.5 59 20 145/67 (93) 97 12/04/19 08:00 74 12/04/19 04:00 66 12/04/19 04:00 97.9 89 18 139/57 (84) 95 12/04/19 00:00 98.0 50 16 136/69 (91) 95 12/04/19 00:00 48 12/03/19 20:00 97.7 70 18 145/79 (101) 96 12/03/19 20:00 61 12/03/19 19:40 Room Air 12/03/19 18:50 97.8 82 19 121/72 (88) 90 12/03/19 18:42 97.3 63 22 131/50 95 Room Air 12/03/19 16:54 97.3 52 21 131/50 91 Room Air 12/03/19 14:00 97.3 52 20 137/110 94 Room Air 12/03/19 12:00 97.3 52 20 147/75 93 Room Air 12/03/19 11:24 97.3 53 20 151/72 (98) 93 Room Air Intake and Output 12/04/19 12/05/19 19:00 07:00 Intake Total 200 ml 542 ml Balance 200 ml 542 ml Intake Oral 200 ml IV Total 542 ml # Voids 2 2 # Bowel Movements 1 1 Labs Test 12/03/19 11:47 12/03/19 12:30 12/03/19 17:00 12/04/19 05:49 White Blood Count 6.8 K/UL (4.8-10.8) 6.6 K/UL (4.8-10.8) Red Blood Count 2.71 M/UL (4.70-6.10) 2.66 M/UL (4.70-6.10) Hemoglobin 8.3 G/DL (14.2-18.0) 8.3 G/DL (14.2-18.0) Hematocrit 25.1 % (42.0-52.0) 24.5 % (42.0-52.0) Mean Corpuscular Volume 93 FL (80-99) 92 FL (80-99) Mean Corpuscular Hemoglobin 30.9 PG (27.0-31.0) 31.3 PG (27.0-31.0) Mean Corpuscular Hemoglobin Concent 33.2 G/DL (32.0-36.0) 33.9 G/DL (32.0-36.0) Red Cell Distribution Width 14.3 % (11.6-14.8) 14.2 % (11.6-14.8) Platelet Count 206 K/UL (150-450) 206 K/UL (150-450) Mean Platelet Volume 7.4 FL (6.5-10.1) 6.7 FL (6.5-10.1) Neutrophils (%) (Auto) 69.4 % (45.0-75.0) 62.4 % (45.0-75.0) Lymphocytes (%) (Auto) 17.2 % (20.0-45.0) 21.6 % (20.0-45.0) Monocytes (%) (Auto) 5.6 % (1.0-10.0) 7.2 % (1.0-10.0) Eosinophils (%) (Auto) 6.9 % (0.0-3.0) 8.0 % (0.0-3.0) Basophils (%) (Auto) 1.0 % (0.0-2.0) 0.9 % (0.0-2.0) Prothrombin Time 11.5 SEC (9.30-11.50) Prothromb Time International Ratio 1.1 (0.9-1.1) Activated Partial Thromboplast Time 25 SEC (23-33) Sodium Level 144 MMOL/L (136-145) 146 MMOL/L (136-145) Potassium Level 5.1 MMOL/L (3.5-5.1) 4.5 MMOL/L (3.5-5.1) Chloride Level 109 MMOL/L (98-107) 111 MMOL/L (98-107) Carbon Dioxide Level 24 MMOL/L (21-32) 22 MMOL/L (21-32) Anion Gap 12 mmol/L (5-15) 13 mmol/L (5-15) Blood Urea Nitrogen 62 mg/dL (7-18) 57 mg/dL (7-18) Creatinine 2.6 MG/DL (0.55-1.30) 2.5 MG/DL (0.55-1.30) Estimat Glomerular Filtration Rate 25.0 mL/min (>60) 26.1 mL/min (>60) Glucose Level 140 MG/DL (74-106) 83 MG/DL (74-106) Lactic Acid Level 0.60 mmol/L (0.4-2.0) Calcium Level 9.3 MG/DL (8.5-10.1) 8.7 MG/DL (8.5-10.1) Total Bilirubin 0.4 MG/DL (0.2-1.0) 0.5 MG/DL (0.2-1.0) Aspartate Amino Transf (AST/SGOT) 17 U/L (15-37) 19 U/L (15-37) Alanine Aminotransferase (ALT/SGPT) 40 U/L (12-78) 33 U/L (12-78) Alkaline Phosphatase 99 U/L (46-116) 99 U/L (46-116) Total Creatine Kinase 83 U/L (26-308) Creatine Kinase MB 1.8 NG/ML (0.0-3.6) Creatine Kinase MB Relative Index 2.1 Troponin I 0.510 ng/mL (0.000-0.056) 0.528 ng/mL (0.000-0.056) Total Protein 7.1 G/DL (6.4-8.2) 6.8 G/DL (6.4-8.2) Albumin 3.4 G/DL (3.4-5.0) 3.3 G/DL (3.4-5.0) Globulin 3.7 g/dL 3.5 g/dL Albumin/Globulin Ratio 0.9 (1.0-2.7) 0.9 (1.0-2.7) Urine Color Pale yellow Urine Appearance Clear Urine pH 5 (4.5-8.0) Urine Specific [place] 1.010 (1.005-1.035) Urine Protein 3+ (NEGATIVE) Urine Glucose (UA) Negative (NEGATIVE) Urine Ketones Negative (NEGATIVE) Urine Blood Negative (NEGATIVE) Urine Nitrite Negative (NEGATIVE) Urine Bilirubin Negative (NEGATIVE) Urine Urobilinogen Normal MG/DL (0.0-1.0) Urine Leukocyte Esterase Negative (NEGATIVE) Urine RBC 0-2 /HPF (0 - 0) Urine WBC 2-4 /HPF (0 - 0) Urine Squamous Epithelial Cells None /LPF (NONE/OCC) Urine Bacteria Few /HPF (NONE) Hemoglobin A1c 6.2 % (4.3-6.0) Uric Acid 7.0 MG/DL (2.6-7.2) Phosphorus Level 4.2 MG/DL (2.5-4.9) Magnesium Level 1.8 MG/DL (1.8-2.4) Iron Level 40 ug/dL (50-175) Total Iron Binding Capacity 211 ug/dL (250-450) Percent Iron Saturation 19 % (15-50) Unsaturated Iron Binding 171 ug/dL (112-346) Ferritin 133 NG/ML (8-388) Gamma Glutamyl Transpeptidase 30 U/L (5-85) C-Reactive Protein, Quantitative 0.5 mg/dL (0.00-0.90) Pro-B-Type Natriuretic Peptide 20684 pg/mL (0-125) Triglycerides Level 60 MG/DL (30-150) Cholesterol Level 80 MG/DL (< 200) LDL Cholesterol 38 mg/dL (<100) HDL Cholesterol 33 MG/DL (40-60) Cholesterol/HDL Ratio 2.4 (3.3-4.4) Vitamin B12 Level 672 PG/ML (193-986) Folate 36.1 NG/ML (8.6-58.9) Thyroid Stimulating Hormone (TSH) 6.202 uiU/mL (0.358-3.740) Test 12/05/19 06:11 White Blood Count 6.3 K/UL (4.8-10.8) Red Blood Count 2.57 M/UL (4.70-6.10) Hemoglobin 7.9 G/DL (14.2-18.0) Hematocrit 23.8 % (42.0-52.0) Mean Corpuscular Volume 93 FL (80-99) Mean Corpuscular Hemoglobin 30.8 PG (27.0-31.0) Mean Corpuscular Hemoglobin Concent 33.2 G/DL (32.0-36.0) Red Cell Distribution Width 14.3 % (11.6-14.8) Platelet Count 202 K/UL (150-450) Mean Platelet Volume 6.7 FL (6.5-10.1) Neutrophils (%) (Auto) % (45.0-75.0) Lymphocytes (%) (Auto) % (20.0-45.0) Monocytes (%) (Auto) % (1.0-10.0) Eosinophils (%) (Auto) % (0.0-3.0) Basophils (%) (Auto) % (0.0-2.0) Height (Feet): 5 Height (Inches): 8.00 Weight (Pounds): 218 Objective PE Vitals: reviewed General Appearance: NAD + chronically ill HEENT: normocephalic, atraumatic ++ biconjunctival hemorrhage Neck: non-tender, normal alignment Respiratory/Chest: nromal breath sounds bilaterally Cardiovascular/Chest: normal peripheral pulses, normal rate Abdomen: normal bowel sounds, soft, nontender Extremities: normal range of motion, Right arm skin tear, left sided weaknness NEURO: ++ left sided weakness Nate Whyte MD Dec 05, 2019 07:42
[2019-12-05 08:00] VITALS: BP 142/61
[2019-12-05] MEDS: Aspirin EC 81mg tab ORAL SCH (08:23)
[2019-12-05 08:30] LABS: ALANINE AMINOTRANSFERASE 38 U/L (12-78); ALBUMIN 3.2 G/DL (3.4-5.0); ALBUMIN/GLOBULIN RATIO 1.1 (1.0-2.7); ALKALINE PHOSPHATASE 98 U/L (46-116); ANION GAP 8 mmol/L (5-15); ASPARTATE AMINO TRANSFERASE 21 U/L (15-37); BILIRUBIN,TOTAL 0.4 MG/DL (0.2-1.0); BLOOD UREA NITROGEN 49 mg/dL (7-18); CALCIUM 8.5 MG/DL (8.5-10.1); CARBON DIOXIDE 25 MMOL/L (21-32); CHLORIDE 110 MMOL/L (98-107); CREATININE 2.6 MG/DL (0.55-1.30); PHOSPHORUS 3.8 MG/DL (2.5-4.9); POTASSIUM 4.5 MMOL/L (3.5-5.1); SODIUM 143 MMOL/L (136-145)
[2019-12-05] MEDS: Docusate 100mg cap ORAL SCH ×3 (08:43→18:00)
[2019-12-05] MEDS: Tamsulosin 0.4mg cap ORAL SCH ×2 (08:43→18:32)
[2019-12-05] MEDS: Pantoprazole Inj IVP SCH (08:44)
--- NOTE | 2019-12-05 10:16 | Infectious Diseases Prog Note ---
Assessment/Plan Assessment/Plan IMPRESSION: 1. Sphenoid mass with nasal bleeding. 2. Acute renal failure. 3. Chronic kidney disease. 4. Diabetes mellitus type 2. 5. Hypertension. 6. History of CVA. 7. Hypothyroidism. 8. BPH. RECOMMENDATION: Observe off antibiotic Needs biopsy from sinus Subjective ROS Limited/Unobtainable: Yes Constitutional: Reports: no symptoms HEENT: Reports: other - nasal bleeding Respiratory: Reports: no symptoms Gastrointestinal/Abdominal: Reports: no symptoms Genitourinary: Reports: no symptoms Allergies: Coded Allergies: No Known Allergies (Unverified , 10/07/17) Objective Vital Signs Last 24 Hour Vital Signs Date Time Temp Pulse Resp B/P (MAP) Pulse Ox O2 Delivery O2 Flow Rate FiO2 12/05/19 08:43 56 142/61 12/05/19 08:43 56 142/61 12/05/19 08:00 97.5 56 20 142/61 (88) 94 12/05/19 04:00 97.6 55 20 138/53 (81) 98 12/05/19 04:00 52 12/05/19 00:00 97.9 55 20 134/57 (82) 95 12/04/19 22:53 67 142/69 12/04/19 21:00 Room Air 12/04/19 20:00 98.0 51 19 142/69 (93) 95 12/04/19 20:00 50 12/04/19 16:00 98.1 56 20 140/70 (93) 95 12/04/19 16:00 54 12/04/19 13:54 140/67 12/04/19 12:00 97.9 56 20 140/67 (91) 95 12/04/19 12:00 54 12/04/19 11:45 66 139/57 Height (Feet): 5 Height (Inches): 8.00 Weight (Pounds): 218 General Appearance: no acute distress HEENT: mucous membranes moist, other - dried blood in nostrils Respiratory/Chest: lungs clear Cardiovascular: normal rate Abdomen: soft, non tender Extremities: no edema Neurologic/Psychiatric: alert, responsive Microbiology Date/Time Source Procedure Growth Status 12/03/19 12:30 Blood Blood Culture - Preliminary NO GROWTH AFTER 24 HOURS Resulted 12/03/19 12:30 Blood Blood Culture - Preliminary NO GROWTH AFTER 24 HOURS Resulted Laboratory Tests Test 12/05/19 06:11 White Blood Count 6.3 K/UL (4.8-10.8) Red Blood Count 2.57 M/UL (4.70-6.10) L Hemoglobin 7.9 G/DL (14.2-18.0) L Hematocrit 23.8 % (42.0-52.0) L Mean Corpuscular Volume 93 FL (80-99) Mean Corpuscular Hemoglobin 30.8 PG (27.0-31.0) Mean Corpuscular Hemoglobin Concent 33.2 G/DL (32.0-36.0) Red Cell Distribution Width 14.3 % (11.6-14.8) Platelet Count 202 K/UL (150-450) Mean Platelet Volume 6.7 FL (6.5-10.1) Neutrophils (%) (Auto) % (45.0-75.0) Lymphocytes (%) (Auto) % (20.0-45.0) Monocytes (%) (Auto) % (1.0-10.0) Eosinophils (%) (Auto) % (0.0-3.0) Basophils (%) (Auto) % (0.0-2.0) Differential Total Cells Counted 100 Neutrophils % (Manual) 74 % (45-75) Lymphocytes % (Manual) 20 % (20-45) Monocytes % (Manual) 3 % (1-10) Eosinophils % (Manual) 3 % (0-3) Basophils % (Manual) 0 % (0-2) Band Neutrophils 0 % (0-8) Platelet Estimate Adequate Platelet Morphology Normal Hypochromasia 1+ Anisocytosis 1+ Sodium Level 143 MMOL/L (136-145) Potassium Level 4.5 MMOL/L (3.5-5.1) Chloride Level 110 MMOL/L (98-107) H Carbon Dioxide Level 25 MMOL/L (21-32) Anion Gap 8 mmol/L (5-15) Blood Urea Nitrogen 49 mg/dL (7-18) H Creatinine 2.6 MG/DL (0.55-1.30) H Estimat Glomerular Filtration Rate 25.0 mL/min (>60) Glucose Level 51 MG/DL (74-106) L Calcium Level 8.5 MG/DL (8.5-10.1) Phosphorus Level 3.8 MG/DL (2.5-4.9) Magnesium Level 1.7 MG/DL (1.8-2.4) L Total Bilirubin 0.4 MG/DL (0.2-1.0) Aspartate Amino Transf (AST/SGOT) 21 U/L (15-37) Alanine Aminotransferase (ALT/SGPT) 38 U/L (12-78) Alkaline Phosphatase 98 U/L (46-116) Troponin I 0.498 ng/mL (0.000-0.056) Total Protein 6.2 G/DL (6.4-8.2) L Albumin 3.2 G/DL (3.4-5.0) L Globulin 3.0 g/dL Albumin/Globulin Ratio 1.1 (1.0-2.7) Current Medications Medications (Trade) Dose Ordered Sig/Leon Route PRN Reason Start Time Stop Time Status Last Admin Dose Admin Acetaminophen (Tylenol) 500 mg Q6H PRN ORAL Mild Pain/Temp > 100.5 12/03/19 19:15 01/02/20 19:14 Acetaminophen (Tylenol) 650 mg Q6H PRN ORAL Pain Scale (3-5) 12/03/19 20:15 01/02/20 20:14 Amlodipine Besylate (Norvasc) 5 mg DAILY ORAL 12/04/19 09:00 01/03/20 08:59 12/05/19 08:43 Aspirin (Ecotrin) 81 mg DAILY ORAL 12/04/19 09:00 01/18/20 08:59 12/04/19 11:44 Atorvastatin Calcium (Lipitor) 40 mg BEDTIME ORAL 12/04/19 21:00 03/02/20 20:59 12/04/19 22:49 Clopidogrel Bisulfate (Plavix) 75 mg DAILY ORAL 12/04/19 09:00 01/03/20 08:59 12/04/19 11:45 Docusate Sodium (Colace) 100 mg THREE TIMES A DAY ORAL 12/04/19 09:00 01/03/20 08:59 12/05/19 08:43 Finasteride (Proscar) 5 mg DAILY ORAL 12/04/19 09:00 03/03/20 08:59 12/05/19 08:42 Hydralazine HCl (Apresoline) 25 mg Q4H PRN ORAL BP over 160 systolic 12/03/19 20:15 03/02/20 20:14 Levothyroxine Sodium (Synthroid) 200 mcg ACBREAKFAST ORAL 12/04/19 06:30 01/03/20 06:29 12/05/19 05:54 Metoprolol Tartrate (Lopressor) 25 mg EVERY 12 HOURS ORAL 12/04/19 21:00 03/03/20 20:59 12/05/19 08:43 Mirtazapine (Remeron) 15 mg HSPRN PRN ORAL Insomnia 12/03/19 20:15 03/02/20 20:14 Nitroglycerin (Ntg) 1 patch Q24H TDERMAL 12/04/19 12:30 01/03/20 12:29 12/04/19 13:54 Pantoprazole (Protonix) 40 mg EVERY 12 HOURS IVP 12/03/19 21:00 01/02/20 20:59 12/05/19 08:44 Sodium Chloride 1,000 ml @ 50 mls/hr Q20H IV 12/03/19 20:00 01/02/20 19:59 12/04/19 19:10 Tamsulosin HCl (Flomax) 0.4 mg BID ORAL 12/04/19 12:10 01/03/20 12:09 12/05/19 08:43 Troy Yeboah MD Dec 05, 2019 10:16
--- NOTE | 2019-12-05 10:48 | Nephrology Progress Note ---
Assessment/Plan Problem List: (1) Renal failure (ARF), acute on chronic (2) Anemia in chronic kidney disease (CKD) (3) Diabetic nephropathy (4) Elevated troponin Assessment 1) Renal failure (ARF), acute on chronic (2) Elevated troponin, bradycardia (3) Anemia of chronic kidney disease, s/p GI Bleed on anticoagulation (4) Hypothyroid by history (5) HTN (hypertension) (6) Diabetic nephropathy, periodic of hypoglycemia in the past other diagnosis History of urinary retention h/o Hypertension h/o UTI Plan Slow hydrate Down on Lopressor orders dose due to bradycardia Change Protonix to p.o. Monitor renal parameters Keep the blood pressure and blood sugar in check Per orders Discussed with RN Subjective ROS Limited/Unobtainable: No Constitutional: Reports: malaise, weakness Objective Objective Last 24 Hour Vital Signs Date Time Temp Pulse Resp B/P (MAP) Pulse Ox O2 Delivery O2 Flow Rate FiO2 12/05/19 09:00 Room Air 12/05/19 08:43 56 142/61 12/05/19 08:43 56 142/61 12/05/19 08:00 97.5 56 20 142/61 (88) 94 12/05/19 08:00 61 12/05/19 04:00 97.6 55 20 138/53 (81) 98 12/05/19 04:00 52 12/05/19 00:00 97.9 55 20 134/57 (82) 95 12/04/19 22:53 67 142/69 12/04/19 21:00 Room Air 12/04/19 20:00 98.0 51 19 142/69 (93) 95 12/04/19 20:00 50 12/04/19 16:00 98.1 56 20 140/70 (93) 95 12/04/19 16:00 54 12/04/19 13:54 140/67 12/04/19 12:00 97.9 56 20 140/67 (91) 95 12/04/19 12:00 54 12/04/19 11:45 66 139/57 Intake and Output 12/04/19 12/05/19 19:00 07:00 Intake Total 200 ml 542 ml Balance 200 ml 542 ml Intake Oral 200 ml IV Total 542 ml # Voids 2 2 # Bowel Movements 1 1 Laboratory Tests 3/20/20 06:11: White Blood Count 6.3, Red Blood Count 2.57L, Hemoglobin 7.9L, Hematocrit 23.8L , Mean Corpuscular Volume 93, Mean Corpuscular Hemoglobin 30.8, Mean Corpuscular Hemoglobin Concent 33.2, Red Cell Distribution Width 14.3, Platelet Count 202, Mean Platelet Volume 6.7, Neutrophils (%) (Auto) , Lymphocytes (%) ( Auto) , Monocytes (%) (Auto) , Eosinophils (%) (Auto) , Basophils (%) (Auto) , Differential Total Cells Counted 100, Neutrophils % (Manual) 74, Lymphocytes % ( Manual) 20, Monocytes % (Manual) 3, Eosinophils % (Manual) 3, Basophils % ( Manual) 0, Band Neutrophils 0, Platelet Estimate Adequate, Platelet Morphology Normal, Hypochromasia 1+, Anisocytosis 1+, Sodium Level 143, Potassium Level 4.5 , Chloride Level 110H, Carbon Dioxide Level 25, Anion Gap 8, Blood Urea Nitrogen 49H, Creatinine 2.6H, Estimat Glomerular Filtration Rate 25.0, Glucose Level 51L, Calcium Level 8.5, Phosphorus Level 3.8, Magnesium Level 1.7L, Total Bilirubin 0.4, Aspartate Amino Transf (AST/SGOT) 21, Alanine Aminotransferase ( ALT/SGPT) 38, Alkaline Phosphatase 98, Troponin I 0.498H, Total Protein 6.2L, Albumin 3.2L, Globulin 3.0, Albumin/Globulin Ratio 1.1 Height (Feet): 5 Height (Inches): 8.00 Weight (Pounds): 218 General Appearance: no apparent distress Cardiovascular: bradycardia Respiratory/Chest: decreased breath sounds Abdomen: distended Objective No change Rafa Farr MD Dec 05, 2019 10:48
--- NOTE | 2019-12-05 11:21 | NUR ---
CASE MANAGEMENT:REVIEW 12/05/19 SI: SPHENOID MASS W/NASAL BLEEDING AC/CHR RENAL FAILURE 97.5 56 20 142/61 94% ON RA H/H-7.9/23.8 BUN+49 CR+2.6 GLUCOSE-51 MAG-1.7 TROPONIN(+) 0.498 IS: IV MAG SULFATE Q1HRS X2 BAGS IVF@50/HR LOPRESSOR PO Q12 PROTONIX PO Q12 LIPITOR PO QHS FLOMAX PO BID ASA PO QD PLAVIX PO QD SYNTHROID PO QAM : TELEMETRY STATUS DCP: FROM [facility]: OBSERVE OFF ANTIBIOTICS NEEDS SINUS BIOPSY
--- NOTE | 2019-12-05 11:21 | Cardiac Electrophysiology PN ---
Assessment/Plan Assessment/Plan 1. Elevated troponin. Troponin levels are flat. The patient has a history of prior troponin elevation. This is likely due to the patient's renal failure, has a creatinine of 2.6. Currently denies any chest pain. He is already on aspirin and Plavix and metoprolol. Echo Nl EF 55%. 2. Hypertension, on Norvasc 5 mg daily and Lopressor 12.5 mg b.i.d. 3. Hypothyroidism, on Synthroid. 4. Hyperlipidemia, on Lipitor. 5. Anemia. Further evaluation by Dr. Whyte. Also has bleeding from both nostrils 6. Renal failure due to diabetic nephropathy. Further evaluation by Dr. Farr. DW RN Subjective Subjective Still bleeding from his nose Objective Last 24 Hour Vital Signs Date Time Temp Pulse Resp B/P (MAP) Pulse Ox O2 Delivery O2 Flow Rate FiO2 12/05/19 09:00 Room Air 12/05/19 08:43 56 142/61 12/05/19 08:43 56 142/61 12/05/19 08:00 97.5 56 20 142/61 (88) 94 12/05/19 08:00 61 12/05/19 04:00 97.6 55 20 138/53 (81) 98 12/05/19 04:00 52 12/05/19 00:00 97.9 55 20 134/57 (82) 95 12/04/19 22:53 67 142/69 12/04/19 21:00 Room Air 12/04/19 20:00 98.0 51 19 142/69 (93) 95 12/04/19 20:00 50 12/04/19 16:00 98.1 56 20 140/70 (93) 95 12/04/19 16:00 54 12/04/19 13:54 140/67 12/04/19 12:00 97.9 56 20 140/67 (91) 95 12/04/19 12:00 54 12/04/19 11:45 66 139/57 Intake and Output 12/04/19 12/05/19 19:00 07:00 Intake Total 200 ml 542 ml Balance 200 ml 542 ml Intake Oral 200 ml IV Total 542 ml # Voids 2 2 # Bowel Movements 1 1 Laboratory Tests Test 12/05/19 06:11 White Blood Count 6.3 K/UL (4.8-10.8) Red Blood Count 2.57 M/UL (4.70-6.10) L Hemoglobin 7.9 G/DL (14.2-18.0) L Hematocrit 23.8 % (42.0-52.0) L Mean Corpuscular Volume 93 FL (80-99) Mean Corpuscular Hemoglobin 30.8 PG (27.0-31.0) Mean Corpuscular Hemoglobin Concent 33.2 G/DL (32.0-36.0) Red Cell Distribution Width 14.3 % (11.6-14.8) Platelet Count 202 K/UL (150-450) Mean Platelet Volume 6.7 FL (6.5-10.1) Neutrophils (%) (Auto) % (45.0-75.0) Lymphocytes (%) (Auto) % (20.0-45.0) Monocytes (%) (Auto) % (1.0-10.0) Eosinophils (%) (Auto) % (0.0-3.0) Basophils (%) (Auto) % (0.0-2.0) Differential Total Cells Counted 100 Neutrophils % (Manual) 74 % (45-75) Lymphocytes % (Manual) 20 % (20-45) Monocytes % (Manual) 3 % (1-10) Eosinophils % (Manual) 3 % (0-3) Basophils % (Manual) 0 % (0-2) Band Neutrophils 0 % (0-8) Platelet Estimate Adequate Platelet Morphology Normal Hypochromasia 1+ Anisocytosis 1+ Sodium Level 143 MMOL/L (136-145) Potassium Level 4.5 MMOL/L (3.5-5.1) Chloride Level 110 MMOL/L (98-107) H Carbon Dioxide Level 25 MMOL/L (21-32) Anion Gap 8 mmol/L (5-15) Blood Urea Nitrogen 49 mg/dL (7-18) H Creatinine 2.6 MG/DL (0.55-1.30) H Estimat Glomerular Filtration Rate 25.0 mL/min (>60) Glucose Level 51 MG/DL (74-106) L Calcium Level 8.5 MG/DL (8.5-10.1) Phosphorus Level 3.8 MG/DL (2.5-4.9) Magnesium Level 1.7 MG/DL (1.8-2.4) L Total Bilirubin 0.4 MG/DL (0.2-1.0) Aspartate Amino Transf (AST/SGOT) 21 U/L (15-37) Alanine Aminotransferase (ALT/SGPT) 38 U/L (12-78) Alkaline Phosphatase 98 U/L (46-116) Troponin I 0.498 ng/mL (0.000-0.056) Total Protein 6.2 G/DL (6.4-8.2) L Albumin 3.2 G/DL (3.4-5.0) L Globulin 3.0 g/dL Albumin/Globulin Ratio 1.1 (1.0-2.7) Microbiology Date/Time Source Procedure Growth Status 12/03/19 12:30 Blood Blood Culture - Preliminary NO GROWTH AFTER 24 HOURS Resulted 12/03/19 12:30 Blood Blood Culture - Preliminary NO GROWTH AFTER 24 HOURS Resulted Objective HEAD AND NECK: Showed no JVD. LUNGS: Clear. CARDIOVASCULAR: Shows regular S1 and S2 with no gallop or murmur. ABDOMEN: Soft. EXTREMITIES: Left hemiplegia. Castillo Bazan MD Dec 05, 2019 11:21
--- NOTE | 2019-12-05 11:36 | NUR ---
*-* INSURANCE *-* ALL CLINICALS AND REVIEWS HAVE BEEN FAXED TO: [facility] NO REF# PH: [phone] FAX: [phone]
[2019-12-05 12:00] VITALS: BP 140/60
[2019-12-05] MEDS: Nitroglycerin Patch 0.4mg TDERMAL SCH (12:40)
[2019-12-05 16:00] VITALS: BP 138/58
--- NOTE | 2019-12-05 19:30 | NUR ---
NURSE NOTES: Received pt and report from LOU Cobos. Observed pt asleep in bed with both eyes closed; arousable to voice. medical scribe is in placed, IV site intact, asymptomatic, and patent; running 1/2 NS @ 50cc/hr. Bed is in the lowest position and locked. Call light and bedside table is within reach. No signs/symptoms of acute distress noted at this time. Will continue plan of care.
[2019-12-05 20:00] VITALS: BP 159/71
[2019-12-05] MEDS: Atorvastatin 20mg tab ORAL SCH (20:47)
--- NOTE | 2019-12-05 20:51 | General Progress Note ---
Assessment/Plan Problem List: (1) Bradycardia ICD Codes: R00.1 - Bradycardia, unspecified SNOMED: 96412693 (2) CHF (congestive heart failure) ICD Codes: I50.9 - Heart failure, unspecified SNOMED: 76263181 (3) Sphenoid mass ICD Codes: J34.89 - Other specified disorders of nose and nasal sinuses SNOMED: 164711327, 3033463, 260757584 (4) ANGEL (acute kidney injury) ICD Codes: N17.9 - Acute kidney failure, unspecified SNOMED: 91996462, 2100637, 846378538 (5) Anemia ICD Codes: D64.9 - Anemia, unspecified SNOMED: 381768844 (6) Nosebleed ICD Codes: R04.0 - Epistaxis SNOMED: 535252849 (7) Diabetic nephropathy ICD Codes: E11.21 - Type 2 diabetes mellitus with diabetic nephropathy SNOMED: 310017044 (8) Anemia in chronic kidney disease (CKD) ICD Codes: N18.9 - Chronic kidney disease, unspecified; D63.1 - Anemia in chronic kidney disease SNOMED: 249940074 (9) Renal failure (ARF), acute on chronic ICD Codes: N17.9 - Acute kidney failure, unspecified; N18.9 - Chronic kidney disease, unspecified SNOMED: 310917489 Status: progressing Assessment/Plan: spenoid mass consulted dr patino the end and he said it can not be biopsed at [facility] and he needs to go to tertiary center to be biopsed by neurosurgeon] afebrile ams nosebleed anemia confused Subjective ROS Limited/Unobtainable: Yes Allergies: Coded Allergies: No Known Allergies (Unverified , 10/07/17) Objective Last 24 Hour Vital Signs Date Time Temp Pulse Resp B/P (MAP) Pulse Ox O2 Delivery O2 Flow Rate FiO2 12/05/19 16:00 98.1 62 20 138/58 (84) 94 12/05/19 16:00 60 12/05/19 12:40 142/61 12/05/19 12:00 98.1 57 20 140/60 (86) 94 12/05/19 12:00 61 12/05/19 09:00 Room Air 12/05/19 08:43 56 142/61 12/05/19 08:43 56 142/61 12/05/19 08:00 97.5 56 20 142/61 (88) 94 12/05/19 08:00 61 12/05/19 04:00 97.6 55 20 138/53 (81) 98 12/05/19 04:00 52 12/05/19 00:00 97.9 55 20 134/57 (82) 95 12/04/19 22:53 67 142/69 12/04/19 21:00 Room Air Intake and Output 12/04/19 12/05/19 19:00 07:00 Intake Total 200 ml 542 ml Balance 200 ml 542 ml Intake Oral 200 ml IV Total 542 ml # Voids 2 2 # Bowel Movements 1 1 Laboratory Tests 12/05/19 06:11: White Blood Count 6.3, Red Blood Count 2.57L, Hemoglobin 7.9L, Hematocrit 23.8L , Mean Corpuscular Volume 93, Mean Corpuscular Hemoglobin 30.8, Mean Corpuscular Hemoglobin Concent 33.2, Red Cell Distribution Width 14.3, Platelet Count 202, Mean Platelet Volume 6.7, Neutrophils (%) (Auto) , Lymphocytes (%) ( Auto) , Monocytes (%) (Auto) , Eosinophils (%) (Auto) , Basophils (%) (Auto) , Differential Total Cells Counted 100, Neutrophils % (Manual) 74, Lymphocytes % ( Manual) 20, Monocytes % (Manual) 3, Eosinophils % (Manual) 3, Basophils % ( Manual) 0, Band Neutrophils 0, Platelet Estimate Adequate, Platelet Morphology Normal, Hypochromasia 1+, Anisocytosis 1+, Sodium Level 143, Potassium Level 4.5 , Chloride Level 110H, Carbon Dioxide Level 25, Anion Gap 8, Blood Urea Nitrogen 49H, Creatinine 2.6H, Estimat Glomerular Filtration Rate 25.0, Glucose Level 51L, Calcium Level 8.5, Phosphorus Level 3.8, Magnesium Level 1.7L, Total Bilirubin 0.4, Aspartate Amino Transf (AST/SGOT) 21, Alanine Aminotransferase ( ALT/SGPT) 38, Alkaline Phosphatase 98, Troponin I 0.498H, Total Protein 6.2L, Albumin 3.2L, Globulin 3.0, Albumin/Globulin Ratio 1.1 Height (Feet): 5 Height (Inches): 8.00 Weight (Pounds): 218 Cardiovascular: normal rate Oni Schilling MD Dec 05, 2019 20:51
--- NOTE | 2019-12-05 22:59 | NUR ---
HAND-OFF: Report given to LOU Jin. Plan of care endorsed.
[2019-12-06] VITALS: BP 138/60
[2019-12-06 04:00] VITALS: BP 140/57
--- NOTE | 2019-12-06 07:52 | NUR ---
Report given to Eufemia BLAKE. Endorsed plan of care.
[2019-12-06] MEDS: Aspirin EC 81mg tab ORAL SCH (09:00)
--- NOTE | 2019-12-06 10:47 | Nephrology Progress Note ---
Assessment/Plan Problem List: (1) Renal failure (ARF), acute on chronic (2) Anemia in chronic kidney disease (CKD) (3) Diabetic nephropathy (4) Elevated troponin Assessment 1) Renal failure (ARF), acute on chronic (2) Elevated troponin, bradycardia (3) Anemia of chronic kidney disease, s/p GI Bleed on anticoagulation (4) Hypothyroid by history (5) HTN (hypertension) (6) Diabetic nephropathy, periodic of hypoglycemia in the past other diagnosis History of urinary retention h/o Hypertension h/o UTI Plan No labs today Slow hydrate Down on Lopressor orders dose due to bradycardia Change Protonix to p.o. Monitor renal parameters Keep the blood pressure and blood sugar in check Per orders Discussed with RN Subjective ROS Limited/Unobtainable: No Constitutional: Reports: malaise Objective Objective Last 24 Hour Vital Signs Date Time Temp Pulse Resp B/P (MAP) Pulse Ox O2 Delivery O2 Flow Rate FiO2 12/06/19 04:00 98.0 62 20 140/57 (84) 94 12/06/19 04:00 56 12/06/19 00:59 98.1 12/06/19 00:00 98.1 57 20 138/60 (86) 95 12/05/19 21:00 Room Air 12/05/19 20:00 59 12/05/19 20:00 98.1 63 18 159/71 (100) 95 12/05/19 16:00 98.1 62 20 138/58 (84) 94 12/05/19 16:00 60 12/05/19 12:40 142/61 12/05/19 12:00 98.1 57 20 140/60 (86) 94 12/05/19 12:00 61 Intake and Output 12/05/19 12/06/19 19:00 07:00 # Voids 2 3 # Bowel Movements 2 3 Height (Feet): 5 Height (Inches): 8.00 Weight (Pounds): 218 General Appearance: no apparent distress Cardiovascular: normal rate, bradycardia - At times Respiratory/Chest: lungs clear Abdomen: soft Objective No change Rafa Farr MD Dec 06, 2019 10:47
[2019-12-06] MEDS: Docusate 100mg cap ORAL SCH ×3 (10:54→17:38)
[2019-12-06] MEDS: Tamsulosin 0.4mg cap ORAL SCH ×2 (10:54→19:05)
[2019-12-06] MEDS: Nitroglycerin Patch 0.4mg TDERMAL SCH (12:30)
--- NOTE | 2019-12-06 13:39 | Cardiac Electrophysiology PN ---
Assessment/Plan Assessment/Plan 1. Elevated troponin. Troponin levels are flat. The patient has a history of prior troponin elevation. Likely due to renal failure creatinine of 2.6. Denies any chest pain. Continue aspirin, Plavix and metoprolol. Echo Nl EF 55%. 2. Hypertension, on Norvasc 5 mg daily and Lopressor 12.5 mg b.i.d. 3. Hypothyroidism, on Synthroid. 4. Hyperlipidemia, on Lipitor. 5. Anemia. Fu by Dr. Whyte. Also has bleeding from both nostrils 6. Renal failure due to diabetic nephropathy. Fu by Dr. Farr. 7. 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 FU ENT and Dr Brown DW RN Subjective Subjective No further bleeding. Confused in NAD. Objective Last 24 Hour Vital Signs Date Time Temp Pulse Resp B/P (MAP) Pulse Ox O2 Delivery O2 Flow Rate FiO2 12/06/19 11:39 Room Air 12/06/19 11:35 55 12/06/19 10:55 57 154/64 12/06/19 08:00 Room Air 12/06/19 04:00 98.0 62 20 140/57 (84) 94 12/06/19 04:00 56 12/06/19 00:59 98.1 12/06/19 00:00 98.1 57 20 138/60 (86) 95 12/05/19 21:00 Room Air 12/05/19 20:00 59 12/05/19 20:00 98.1 63 18 159/71 (100) 95 12/05/19 16:00 98.1 62 20 138/58 (84) 94 12/05/19 16:00 60 Intake and Output 12/05/19 12/06/19 19:00 07:00 # Voids 2 3 # Bowel Movements 2 3 Microbiology Date/Time Source Procedure Growth Status 12/03/19 18:20 Nasal Nares MRSA Culture - Final NO METHICILLIN RESISTANT STAPH AUREUS... Complete 12/03/19 18:20 Rectum - Final NO CARBAPENEM-RESISTANT ENTEROBACTERI... Complete 12/03/19 18:20 Rectum VRE Culture - Final Enterococcus Faecalis - Vre Enterococcus Faecium - Vre Complete Objective HEAD AND NECK: Showed no JVD. LUNGS: Clear. CARDIOVASCULAR: Shows regular S1 and S2 with no gallop or murmur. ABDOMEN: Soft. EXTREMITIES: Left hemiplegia. Castillo Bazan MD Dec 06, 2019 13:39
[2019-12-06 20:00] VITALS: BP 146/65
--- NOTE | 2019-12-06 20:00 | NUR ---
NURSE NOTES: Received pt and report from LOU Fall. Observed pt asleep in bed with both eyes closed; arousable to voice. IV site intact, asymptomatic, and patent; running 1/2 NS @ 50cc/hr. Bed is in the lowest position and locked. Call light and bedside table is within reach. No signs/symptoms of acute distress noted at this time. Will continue plan of care.
--- NOTE | 2019-12-06 20:34 | General Progress Note ---
Assessment/Plan Problem List: (1) Bradycardia ICD Codes: R00.1 - Bradycardia, unspecified SNOMED: 19233003 (2) CHF (congestive heart failure) ICD Codes: I50.9 - Heart failure, unspecified SNOMED: 59740472 (3) Sphenoid mass ICD Codes: J34.89 - Other specified disorders of nose and nasal sinuses SNOMED: 627441802, 1368518, 523435636 (4) ANGEL (acute kidney injury) ICD Codes: N17.9 - Acute kidney failure, unspecified SNOMED: 55720687, 7836630, 968253483 (5) Anemia ICD Codes: D64.9 - Anemia, unspecified SNOMED: 052027842 (6) Nosebleed ICD Codes: R04.0 - Epistaxis SNOMED: 360020963 (7) Diabetic nephropathy ICD Codes: E11.21 - Type 2 diabetes mellitus with diabetic nephropathy SNOMED: 751288489 (8) Anemia in chronic kidney disease (CKD) ICD Codes: N18.9 - Chronic kidney disease, unspecified; D63.1 - Anemia in chronic kidney disease SNOMED: 964751319 (9) Renal failure (ARF), acute on chronic ICD Codes: N17.9 - Acute kidney failure, unspecified; N18.9 - Chronic kidney disease, unspecified SNOMED: 058345935 Status: progressing Assessment/Plan: spenoid mass worsening hb so consulted dr do cri lethargy nosebleed anemia confused Subjective ROS Limited/Unobtainable: Yes Allergies: Coded Allergies: No Known Allergies (Unverified , 10/07/17) Objective Last 24 Hour Vital Signs Date Time Temp Pulse Resp B/P (MAP) Pulse Ox O2 Delivery O2 Flow Rate FiO2 12/06/19 16:00 60 12/06/19 16:00 Room Air 12/06/19 12:30 113/63 12/06/19 11:39 Room Air 12/06/19 11:35 55 12/06/19 10:55 57 154/64 12/06/19 08:00 Room Air 12/06/19 04:00 98.0 62 20 140/57 (84) 94 12/06/19 04:00 56 12/06/19 00:59 98.1 12/06/19 00:00 98.1 57 20 138/60 (86) 95 12/05/19 21:00 Room Air Intake and Output 12/05/19 12/06/19 19:00 07:00 # Voids 2 3 # Bowel Movements 2 3 Height (Feet): 5 Height (Inches): 8.00 Weight (Pounds): 218 Oni Schilling MD Dec 06, 2019 20:34
--- NOTE | 2019-12-06 21:00 | NUR ---
NURSE NOTES: Received a call from Dr Whyte regarding low hemoglobin, given an order to transfuse 1 unit PRBCs, type, match and cross screen. Inputted orders.
[2019-12-06] MEDS: Atorvastatin 20mg tab ORAL SCH (21:54)
[2019-12-07] VITALS (7 sets, daily range): BP systolic 108–150; BP diastolic 65–78
--- NOTE | 2019-12-07 | NUR ---
NURSE NOTES: Awaiting results of type/screen match and cross to begin process of blood transfusion
--- NOTE | 2019-12-07 03:20 | NUR ---
NURSE NOTES: Asked when blood will be ready, was told there is only 1 sewer and drain technician at night and it is taking longer than expected
--- NOTE | 2019-12-07 04:39 | NUR ---
NURSE NOTES: Called laboratory for status and update on when blood will be ready, they said it is still not ready. Told me to wait 45 minutes
[2019-12-07 04:43] LABS: BASOPHILS % (AUTO) 0.8 % (0.0-2.0); EOSINOPHILS % (AUTO) 7.4 % (0.0-3.0); HEMATOCRIT 25.3 % (42.0-52.0); HEMOGLOBIN 8.5 G/DL (14.2-18.0); LYMPHOCYTES % (AUTO) 19.5 % (20.0-45.0); MEAN CORPUSCULAR VOLUME 92 FL (80-99); MONOCYTES % (AUTO) 9.2 % (1.0-10.0); NEUTROPHILS % (AUTO) 63.1 % (45.0-75.0); PLATELET COUNT 219 K/UL (150-450); RED BLOOD COUNT 2.76 M/UL (4.70-6.10); RED CELL DISTRIBUTION WIDTH 14.4 % (11.6-14.8); WHITE BLOOD COUNT 6.7 K/UL (4.8-10.8)
[2019-12-07 04:58] LABS: ALANINE AMINOTRANSFERASE 23 U/L (12-78); ALBUMIN/GLOBULIN RATIO 0.9 (1.0-2.7); ALKALINE PHOSPHATASE 103 U/L (46-116); ANION GAP 13 mmol/L (5-15); ASPARTATE AMINO TRANSFERASE 20 U/L (15-37); BILIRUBIN,TOTAL 0.5 MG/DL (0.2-1.0); BLOOD UREA NITROGEN 37 mg/dL (7-18); CALCIUM 8.8 MG/DL (8.5-10.1); CARBON DIOXIDE 21 MMOL/L (21-32); CHLORIDE 110 MMOL/L (98-107); CREATININE 2.2 MG/DL (0.55-1.30); PHOSPHORUS 3.7 MG/DL (2.5-4.9); SODIUM 144 MMOL/L (136-145)
--- NOTE | 2019-12-07 06:59 | NUR ---
NURSE NOTES: Finally received notice that blood is ready to be picked up.
--- NOTE | 2019-12-07 07:15 | NUR ---
HAND-OFF: Report given to LOU Morris
--- NOTE | 2019-12-07 08:05 | NUR ---
NURSE NOTES: Pt awake/alert in bed, breathing easily on room air, denies SOB and denies pain at this time. Vital signs stable with SR on monitor @ 66. IV access left wrist with 1/2 NS running @ 50 ml/hr. Access right wrist flushed with 10 ml NS and locked. Bed left in low position, side rails up x 2 and call light left near pt's hand.
[2019-12-07] MEDS: Docusate 100mg cap ORAL SCH ×3 (09:28→18:05)
[2019-12-07] MEDS: Tamsulosin 0.4mg cap ORAL SCH ×2 (09:29→18:07)
[2019-12-07] MEDS: Aspirin EC 81mg tab ORAL SCH (09:29)
[2019-12-07] MEDS ORDERED: Tubing Blood Filter IV ONE (09:47)
[2019-12-07] MEDS ORDERED: 1/2 NS 1000ml IV ONE (09:47)
[2019-12-07] MEDS ORDERED: NS 275ml ONE (09:47)
--- NOTE | 2019-12-07 11:42 | Nephrology Progress Note ---
Assessment/Plan Problem List: (1) Renal failure (ARF), acute on chronic Assessment: Serum creatinine is lowering (2) Anemia in chronic kidney disease (CKD) (3) Diabetic nephropathy (4) Elevated troponin Assessment 1) Renal failure (ARF), acute on chronic (2) Elevated troponin, bradycardia (3) Anemia of chronic kidney disease, s/p GI Bleed on anticoagulation (4) Hypothyroid by history (5) HTN (hypertension) (6) Diabetic nephropathy, periodic of hypoglycemia in the past other diagnosis History of urinary retention h/o Hypertension h/o UTI Plan Slow hydrate Down on Lopressor orders dose due to bradycardia Change Protonix to p.o. Monitor renal parameters Keep the blood pressure and blood sugar in check Per orders Discussed with RN Subjective ROS Limited/Unobtainable: No Constitutional: Reports: malaise Objective Objective Last 24 Hour Vital Signs Date Time Temp Pulse Resp B/P (MAP) Pulse Ox O2 Delivery O2 Flow Rate FiO2 12/07/19 09:29 66 150/71 12/07/19 09:29 66 150/71 12/07/19 08:22 Room Air 12/07/19 08:00 68 12/07/19 08:00 97.5 66 20 150/71 (97) 95 12/07/19 04:00 57 12/07/19 04:00 98.2 59 26 145/68 (93) 93 12/07/19 00:00 57 12/07/19 00:00 98.4 54 26 143/69 (93) 94 12/06/19 21:00 Room Air 12/06/19 21:00 56 140/65 12/06/19 20:00 98.2 56 26 146/65 (92) 94 12/06/19 20:00 52 12/06/19 16:00 60 12/06/19 16:00 Room Air 12/06/19 12:30 113/63 Intake and Output 12/06/19 12/07/19 19:00 07:00 Intake Total 240 ml Output Total 700 ml Balance -460 ml Intake Oral 240 ml Output Urine Total 700 ml # Voids 3 Current Medications Medications (Trade) Dose Ordered Sig/Leon Route PRN Reason Start Time Stop Time Status Last Admin Dose Admin Acetaminophen (Tylenol) 500 mg Q6H PRN ORAL Mild Pain/Temp > 100.5 12/03/19 19:15 01/02/20 19:14 12/06/19 00:29 Acetaminophen (Tylenol) 650 mg Q6H PRN ORAL Pain Scale (3-5) 12/03/19 20:15 01/02/20 20:14 Amlodipine Besylate (Norvasc) 5 mg DAILY ORAL 12/04/19 09:00 01/03/20 08:59 12/07/19 09:29 Aspirin (Ecotrin) 81 mg DAILY ORAL 12/04/19 09:00 01/18/20 08:59 12/07/19 09:29 Atorvastatin Calcium (Lipitor) 40 mg BEDTIME ORAL 12/04/19 21:00 03/02/20 20:59 12/06/19 21:54 Clopidogrel Bisulfate (Plavix) 75 mg DAILY ORAL 12/04/19 09:00 01/03/20 08:59 12/07/19 09:29 Docusate Sodium (Colace) 100 mg THREE TIMES A DAY ORAL 12/04/19 09:00 01/03/20 08:59 12/07/19 09:28 Finasteride (Proscar) 5 mg DAILY ORAL 12/04/19 09:00 03/03/20 08:59 12/07/19 09:29 Hydralazine HCl (Apresoline) 25 mg Q4H PRN ORAL BP over 160 systolic 12/03/19 20:15 03/02/20 20:14 Levothyroxine Sodium (Synthroid) 200 mcg ACBREAKFAST ORAL 12/04/19 06:30 01/03/20 06:29 12/07/19 06:30 Metoprolol Tartrate (Lopressor) 12.5 mg EVERY 12 HOURS ORAL 12/06/19 21:00 03/03/20 20:59 12/07/19 09:29 Mirtazapine (Remeron) 15 mg HSPRN PRN ORAL Insomnia 12/03/19 20:15 03/02/20 20:14 Nitroglycerin (Ntg) 1 patch Q24H TDERMAL 12/04/19 12:30 01/03/20 12:29 12/05/19 12:40 Pantoprazole (Protonix) 40 mg EVERY 12 HOURS ORAL 12/05/19 21:00 01/04/20 20:59 12/07/19 09:28 Sodium Chloride 1,000 ml @ 50 mls/hr Q20H IV 12/03/19 20:00 01/02/20 19:59 12/07/19 04:12 Tamsulosin HCl (Flomax) 0.4 mg BID ORAL 12/04/19 12:10 01/03/20 12:09 12/07/19 09:29 Laboratory Tests 12/07/19 02:50: White Blood Count 6.7, Red Blood Count 2.76L, Hemoglobin 8.5L, Hematocrit 25.3L , Mean Corpuscular Volume 92, Mean Corpuscular Hemoglobin 30.6, Mean Corpuscular Hemoglobin Concent 33.5, Red Cell Distribution Width 14.4, Platelet Count 219, Mean Platelet Volume 7.0, Neutrophils (%) (Auto) 63.1, Lymphocytes (% ) (Auto) 19.5L, Monocytes (%) (Auto) 9.2, Eosinophils (%) (Auto) 7.4H, Basophils (%) (Auto) 0.8, Sodium Level 144, Potassium Level 4.0, Chloride Level 110H, Carbon Dioxide Level 21, Anion Gap 13, Blood Urea Nitrogen 37H, Creatinine 2.2H, Estimat Glomerular Filtration Rate 30.3, Glucose Level 50L, Uric Acid 6.9, Calcium Level 8.8, Phosphorus Level 3.7, Magnesium Level 1.7L, Total Bilirubin 0.5, Aspartate Amino Transf (AST/SGOT) 20, Alanine Aminotransferase (ALT/SGPT) 23, Alkaline Phosphatase 103, C-Reactive Protein, Quantitative 2.6H, Pro-B-Type Natriuretic Peptide 94401H, Total Protein 6.4, Albumin 3.0L, Globulin 3.4, Albumin/Globulin Ratio 0.9L Height (Feet): 5 Height (Inches): 8.00 Weight (Pounds): 218 General Appearance: no apparent distress Cardiovascular: normal rate Respiratory/Chest: decreased breath sounds Abdomen: soft Objective No change Rafa Farr MD Dec 07, 2019 11:42
[2019-12-07] MEDS: Nitroglycerin Patch 0.4mg TDERMAL SCH (12:30)
--- NOTE | 2019-12-07 12:56 | Infectious Diseases Prog Note ---
Assessment/Plan Assessment/Plan IMPRESSION: 1. Sphenoid mass with nasal bleeding. 2. Acute renal failure. 3. Chronic kidney disease. 4. Diabetes mellitus type 2. 5. Hypertension. 6. History of CVA. 7. Hypothyroidism. 8. BPH. RECOMMENDATION: Observe off antibiotic Needs biopsy from sinus Subjective ROS Limited/Unobtainable: No Constitutional: Reports: no symptoms HEENT: Reports: no symptoms, other - no nasal bleeding today Respiratory: Reports: no symptoms Gastrointestinal/Abdominal: Reports: no symptoms Genitourinary: Reports: no symptoms Allergies: Coded Allergies: No Known Allergies (Unverified , 10/07/17) Objective Vital Signs Last 24 Hour Vital Signs Date Time Temp Pulse Resp B/P (MAP) Pulse Ox O2 Delivery O2 Flow Rate FiO2 12/07/19 09:29 66 150/71 12/07/19 09:29 66 150/71 12/07/19 08:22 Room Air 12/07/19 08:00 68 12/07/19 08:00 97.5 66 20 150/71 (97) 95 12/07/19 04:00 57 12/07/19 04:00 98.2 59 26 145/68 (93) 93 12/07/19 00:00 57 12/07/19 00:00 98.4 54 26 143/69 (93) 94 12/06/19 21:00 Room Air 12/06/19 21:00 56 140/65 12/06/19 20:00 98.2 56 26 146/65 (92) 94 12/06/19 20:00 52 12/06/19 16:00 60 12/06/19 16:00 Room Air Height (Feet): 5 Height (Inches): 8.00 Weight (Pounds): 218 General Appearance: no acute distress HEENT: mucous membranes moist Respiratory/Chest: lungs clear Cardiovascular: normal rate Abdomen: soft, non tender Extremities: no edema Neurologic/Psychiatric: alert, responsive Laboratory Tests Test 12/07/19 02:50 White Blood Count 6.7 K/UL (4.8-10.8) Red Blood Count 2.76 M/UL (4.70-6.10) L Hemoglobin 8.5 G/DL (14.2-18.0) L Hematocrit 25.3 % (42.0-52.0) L Mean Corpuscular Volume 92 FL (80-99) Mean Corpuscular Hemoglobin 30.6 PG (27.0-31.0) Mean Corpuscular Hemoglobin Concent 33.5 G/DL (32.0-36.0) Red Cell Distribution Width 14.4 % (11.6-14.8) Platelet Count 219 K/UL (150-450) Mean Platelet Volume 7.0 FL (6.5-10.1) Neutrophils (%) (Auto) 63.1 % (45.0-75.0) Lymphocytes (%) (Auto) 19.5 % (20.0-45.0) L Monocytes (%) (Auto) 9.2 % (1.0-10.0) Eosinophils (%) (Auto) 7.4 % (0.0-3.0) H Basophils (%) (Auto) 0.8 % (0.0-2.0) Sodium Level 144 MMOL/L (136-145) Potassium Level 4.0 MMOL/L (3.5-5.1) Chloride Level 110 MMOL/L (98-107) H Carbon Dioxide Level 21 MMOL/L (21-32) Anion Gap 13 mmol/L (5-15) Blood Urea Nitrogen 37 mg/dL (7-18) H Creatinine 2.2 MG/DL (0.55-1.30) H Estimat Glomerular Filtration Rate 30.3 mL/min (>60) Glucose Level 50 MG/DL (74-106) L Uric Acid 6.9 MG/DL (2.6-7.2) Calcium Level 8.8 MG/DL (8.5-10.1) Phosphorus Level 3.7 MG/DL (2.5-4.9) Magnesium Level 1.7 MG/DL (1.8-2.4) L Total Bilirubin 0.5 MG/DL (0.2-1.0) Aspartate Amino Transf (AST/SGOT) 20 U/L (15-37) Alanine Aminotransferase (ALT/SGPT) 23 U/L (12-78) Alkaline Phosphatase 103 U/L (46-116) C-Reactive Protein, Quantitative 2.6 mg/dL (0.00-0.90) H Pro-B-Type Natriuretic Peptide 68386 pg/mL (0-125) H Total Protein 6.4 G/DL (6.4-8.2) Albumin 3.0 G/DL (3.4-5.0) L Globulin 3.4 g/dL Albumin/Globulin Ratio 0.9 (1.0-2.7) L Current Medications Medications (Trade) Dose Ordered Sig/Leon Route PRN Reason Start Time Stop Time Status Last Admin Dose Admin Acetaminophen (Tylenol) 500 mg Q6H PRN ORAL Mild Pain/Temp > 100.5 12/03/19 19:15 01/02/20 19:14 12/06/19 00:29 Acetaminophen (Tylenol) 650 mg Q6H PRN ORAL Pain Scale (3-5) 12/03/19 20:15 01/02/20 20:14 Amlodipine Besylate (Norvasc) 5 mg DAILY ORAL 12/04/19 09:00 01/03/20 08:59 12/07/19 09:29 Aspirin (Ecotrin) 81 mg DAILY ORAL 12/04/19 09:00 01/18/20 08:59 12/07/19 09:29 Atorvastatin Calcium (Lipitor) 40 mg BEDTIME ORAL 12/04/19 21:00 03/02/20 20:59 12/06/19 21:54 Clopidogrel Bisulfate (Plavix) 75 mg DAILY ORAL 12/04/19 09:00 01/03/20 08:59 12/07/19 09:29 Docusate Sodium (Colace) 100 mg THREE TIMES A DAY ORAL 12/04/19 09:00 01/03/20 08:59 12/07/19 09:28 Finasteride (Proscar) 5 mg DAILY ORAL 12/04/19 09:00 03/03/20 08:59 12/07/19 09:29 Hydralazine HCl (Apresoline) 25 mg Q4H PRN ORAL BP over 160 systolic 12/03/19 20:15 03/02/20 20:14 Levothyroxine Sodium (Synthroid) 200 mcg ACBREAKFAST ORAL 12/04/19 06:30 01/03/20 06:29 12/07/19 06:30 Metoprolol Tartrate (Lopressor) 12.5 mg EVERY 12 HOURS ORAL 12/06/19 21:00 03/03/20 20:59 12/07/19 09:29 Mirtazapine (Remeron) 15 mg HSPRN PRN ORAL Insomnia 12/03/19 20:15 03/02/20 20:14 Nitroglycerin (Ntg) 1 patch Q24H TDERMAL 12/04/19 12:30 01/03/20 12:29 12/05/19 12:40 Pantoprazole (Protonix) 40 mg EVERY 12 HOURS ORAL 12/05/19 21:00 01/04/20 20:59 12/07/19 09:28 Sodium Chloride 1,000 ml @ 50 mls/hr Q20H IV 12/03/19 20:00 01/02/20 19:59 12/07/19 04:12 Tamsulosin HCl (Flomax) 0.4 mg BID ORAL 12/04/19 12:10 01/03/20 12:09 12/07/19 09:29 Troy Yeboah MD Dec 07, 2019 12:56
--- NOTE | 2019-12-07 13:33 | General Progress Note ---
Assessment/Plan Problem List: (1) Bradycardia ICD Codes: R00.1 - Bradycardia, unspecified SNOMED: 18682582 (2) CHF (congestive heart failure) ICD Codes: I50.9 - Heart failure, unspecified SNOMED: 05853649 (3) Sphenoid mass ICD Codes: J34.89 - Other specified disorders of nose and nasal sinuses SNOMED: 104386968, 7158810, 791902087 (4) ANGEL (acute kidney injury) ICD Codes: N17.9 - Acute kidney failure, unspecified SNOMED: 32061714, 8481877, 249222748 (5) Anemia ICD Codes: D64.9 - Anemia, unspecified SNOMED: 291256015 (6) Nosebleed ICD Codes: R04.0 - Epistaxis SNOMED: 115909924 (7) Diabetic nephropathy ICD Codes: E11.21 - Type 2 diabetes mellitus with diabetic nephropathy SNOMED: 045009811 (8) Anemia in chronic kidney disease (CKD) ICD Codes: N18.9 - Chronic kidney disease, unspecified; D63.1 - Anemia in chronic kidney disease SNOMED: 752147396 (9) Renal failure (ARF), acute on chronic ICD Codes: N17.9 - Acute kidney failure, unspecified; N18.9 - Chronic kidney disease, unspecified SNOMED: 581508135 Status: progressing Assessment/Plan: spenoid mass.consulted dr patino for this and asked him to see for sphenoid mass cri lethargy no nosebleed anemia stable h/h still confused Subjective ROS Limited/Unobtainable: Yes Allergies: Coded Allergies: No Known Allergies (Unverified , 10/07/17) Objective Last 24 Hour Vital Signs Date Time Temp Pulse Resp B/P (MAP) Pulse Ox O2 Delivery O2 Flow Rate FiO2 12/07/19 09:29 66 150/71 12/07/19 09:29 66 150/71 12/07/19 08:22 Room Air 12/07/19 08:00 68 12/07/19 08:00 97.5 66 20 150/71 (97) 95 12/07/19 04:00 57 12/07/19 04:00 98.2 59 26 145/68 (93) 93 12/07/19 00:00 57 12/07/19 00:00 98.4 54 26 143/69 (93) 94 3/21/20 21:00 Room Air 12/06/19 21:00 56 140/65 12/06/19 20:00 98.2 56 26 146/65 (92) 94 12/06/19 20:00 52 12/06/19 16:00 60 12/06/19 16:00 Room Air Intake and Output 12/06/19 12/07/19 19:00 07:00 Intake Total 240 ml Output Total 700 ml Balance -460 ml Intake Oral 240 ml Output Urine Total 700 ml # Voids 3 Laboratory Tests 12/07/19 02:50: White Blood Count 6.7, Red Blood Count 2.76L, Hemoglobin 8.5L, Hematocrit 25.3L , Mean Corpuscular Volume 92, Mean Corpuscular Hemoglobin 30.6, Mean Corpuscular Hemoglobin Concent 33.5, Red Cell Distribution Width 14.4, Platelet Count 219, Mean Platelet Volume 7.0, Neutrophils (%) (Auto) 63.1, Lymphocytes (% ) (Auto) 19.5L, Monocytes (%) (Auto) 9.2, Eosinophils (%) (Auto) 7.4H, Basophils (%) (Auto) 0.8, Sodium Level 144, Potassium Level 4.0, Chloride Level 110H, Carbon Dioxide Level 21, Anion Gap 13, Blood Urea Nitrogen 37H, Creatinine 2.2H, Estimat Glomerular Filtration Rate 30.3, Glucose Level 50L, Uric Acid 6.9, Calcium Level 8.8, Phosphorus Level 3.7, Magnesium Level 1.7L, Total Bilirubin 0.5, Aspartate Amino Transf (AST/SGOT) 20, Alanine Aminotransferase (ALT/SGPT) 23, Alkaline Phosphatase 103, C-Reactive Protein, Quantitative 2.6H, Pro-B-Type Natriuretic Peptide 56872H, Total Protein 6.4, Albumin 3.0L, Globulin 3.4, Albumin/Globulin Ratio 0.9L Height (Feet): 5 Height (Inches): 8.00 Weight (Pounds): 218 Neck: supple Cardiovascular: regular rhythm Respiratory/Chest: lungs clear Oni Schilling MD Dec 07, 2019 13:33
--- NOTE | 2019-12-07 14:38 | NUR ---
NURSE NOTES: Transfusion started. After 15 minutes of slow infusion there in no reaction, breathing easily on room air. Infusion rate increased from 60 ml/min to 140 ml/min.
--- NOTE | 2019-12-07 16:23 | Hematology/Onc Progress Note ---
Assessment/Plan Assessment/Plan Assessment and Recs: # Anemia due to underlying GI bleed -- patient presents with hematemesis before and now with barb --> as per GI eval, may need endoscopy as needed --> has been started on ppi --> cea recently 1.8 --> Hgb goal >7. Transfuse prn. --> Will sign consent if necessary --> Epogen not started. iron iv but hold off for now since ferritin is 133 --> Consider octreotide gtt as per gi eval --> Medications have been reviewed --> Hgb 8.8 -->8.6-->8.7-->8.9-->7.9-->8.5 --> prbc: 1 unit 12/06 # Coagulation defect/Bleeding, multifactorial usually related to poor PO intake versus medications, in this case related to coumadin --> administer Vitamin K if patient is bleeding or FFP if the INR is >10 --> hold off on ffp unless active procedure/bleeding, first begin with vit K 10 --> mixing study as needed --> HAVE STOPPED COUMADIN --> per cards, hold off at this time, is aware of afib hx --> okay for asa and plavix # Anemia due to folic acid deficiency/iron deficiency as well --> prior folic acid<5 --> recheck levels --> 8.5 # FTT -- failure to thrive --> mirtazapine per gi # Ned on ckd --> as per Dr. Farr --> recs noted --> hydration as needed --> meds noted # NSTEMI hx --> per cards # c.diff hx --> now resolved # Dvt ppx on scds now --> on plavix and asa The timing of this note does not necessarily reflect the time of the patient was seen. Greatly appreciate consultation. Subjective Allergies: Coded Allergies: No Known Allergies (Unverified , 10/07/17) Subjective 12/04 no major events, labs noted, hgb remains 7.9, no bleeding at this time 12/06 on tele, prbc ordered, elevated bp, no sob Objective Objective Current Medications Medications (Trade) Dose Ordered Sig/Leon Route PRN Reason Start Time Stop Time Status Last Admin Dose Admin Acetaminophen (Tylenol) 500 mg Q6H PRN ORAL Mild Pain/Temp > 100.5 12/03/19 19:15 01/02/20 19:14 12/06/19 00:29 Acetaminophen (Tylenol) 650 mg Q6H PRN ORAL Pain Scale (3-5) 12/03/19 20:15 01/02/20 20:14 Amlodipine Besylate (Norvasc) 5 mg DAILY ORAL 12/04/19 09:00 01/03/20 08:59 12/07/19 09:29 Aspirin (Ecotrin) 81 mg DAILY ORAL 12/04/19 09:00 01/18/20 08:59 12/07/19 09:29 Atorvastatin Calcium (Lipitor) 40 mg BEDTIME ORAL 12/04/19 21:00 03/02/20 20:59 12/06/19 21:54 Clopidogrel Bisulfate (Plavix) 75 mg DAILY ORAL 12/04/19 09:00 01/03/20 08:59 12/07/19 09:29 Docusate Sodium (Colace) 100 mg THREE TIMES A DAY ORAL 12/04/19 09:00 01/03/20 08:59 12/07/19 13:00 Finasteride (Proscar) 5 mg DAILY ORAL 12/04/19 09:00 03/03/20 08:59 12/07/19 09:29 Hydralazine HCl (Apresoline) 25 mg Q4H PRN ORAL BP over 160 systolic 12/03/19 20:15 03/02/20 20:14 Levothyroxine Sodium (Synthroid) 200 mcg ACBREAKFAST ORAL 12/04/19 06:30 01/03/20 06:29 12/07/19 06:30 Metoprolol Tartrate (Lopressor) 12.5 mg EVERY 12 HOURS ORAL 12/06/19 21:00 03/03/20 20:59 12/07/19 09:29 Mirtazapine (Remeron) 15 mg HSPRN PRN ORAL Insomnia 12/03/19 20:15 03/02/20 20:14 Nitroglycerin (Ntg) 1 patch Q24H TDERMAL 12/04/19 12:30 01/03/20 12:29 12/07/19 12:30 Pantoprazole (Protonix) 40 mg EVERY 12 HOURS ORAL 12/05/19 21:00 01/04/20 20:59 12/07/19 09:28 Sodium Chloride 1,000 ml @ 50 mls/hr Q20H IV 12/03/19 20:00 01/02/20 19:59 12/07/19 04:12 Tamsulosin HCl (Flomax) 0.4 mg BID ORAL 12/04/19 12:10 01/03/20 12:09 12/07/19 09:29 Last 24 Hour Vital Signs Date Time Temp Pulse Resp B/P (MAP) Pulse Ox O2 Delivery O2 Flow Rate FiO2 12/07/19 12:30 150/71 12/07/19 12:00 97.7 52 18 143/74 (97) 96 12/07/19 12:00 54 12/07/19 09:29 66 150/71 12/07/19 09:29 66 150/71 12/07/19 08:22 Room Air 12/07/19 08:00 68 12/07/19 08:00 97.5 66 20 150/71 (97) 95 12/07/19 04:00 57 12/07/19 04:00 98.2 59 26 145/68 (93) 93 12/07/19 00:00 57 12/07/19 00:00 98.4 54 26 143/69 (93) 94 12/06/19 21:00 Room Air 12/06/19 21:00 56 140/65 12/06/19 20:00 98.2 56 26 146/65 (92) 94 12/06/19 20:00 52 12/06/19 16:00 60 12/06/19 16:00 Room Air 12/06/19 12:30 113/63 12/06/19 11:39 Room Air 12/06/19 11:35 55 12/06/19 10:55 57 154/64 12/06/19 08:00 Room Air 12/06/19 04:00 98.0 62 20 140/57 (84) 94 12/06/19 04:00 56 12/06/19 00:59 98.1 12/06/19 00:00 98.1 57 20 138/60 (86) 95 12/05/19 21:00 Room Air 12/05/19 20:00 59 12/05/19 20:00 98.1 63 18 159/71 (100) 95 Intake and Output 12/06/19 12/07/19 19:00 07:00 Intake Total 240 ml Output Total 700 ml Balance -460 ml Intake Oral 240 ml Output Urine Total 700 ml # Voids 3 Labs Test 12/05/19 06:11 12/07/19 02:50 White Blood Count 6.3 K/UL (4.8-10.8) 6.7 K/UL (4.8-10.8) Red Blood Count 2.57 M/UL (4.70-6.10) 2.76 M/UL (4.70-6.10) Hemoglobin 7.9 G/DL (14.2-18.0) 8.5 G/DL (14.2-18.0) Hematocrit 23.8 % (42.0-52.0) 25.3 % (42.0-52.0) Mean Corpuscular Volume 93 FL (80-99) 92 FL (80-99) Mean Corpuscular Hemoglobin 30.8 PG (27.0-31.0) 30.6 PG (27.0-31.0) Mean Corpuscular Hemoglobin Concent 33.2 G/DL (32.0-36.0) 33.5 G/DL (32.0-36.0) Red Cell Distribution Width 14.3 % (11.6-14.8) 14.4 % (11.6-14.8) Platelet Count 202 K/UL (150-450) 219 K/UL (150-450) Mean Platelet Volume 6.7 FL (6.5-10.1) 7.0 FL (6.5-10.1) Neutrophils (%) (Auto) % (45.0-75.0) 63.1 % (45.0-75.0) Lymphocytes (%) (Auto) % (20.0-45.0) 19.5 % (20.0-45.0) Monocytes (%) (Auto) % (1.0-10.0) 9.2 % (1.0-10.0) Eosinophils (%) (Auto) % (0.0-3.0) 7.4 % (0.0-3.0) Basophils (%) (Auto) % (0.0-2.0) 0.8 % (0.0-2.0) Differential Total Cells Counted 100 Neutrophils % (Manual) 74 % (45-75) Lymphocytes % (Manual) 20 % (20-45) Monocytes % (Manual) 3 % (1-10) Eosinophils % (Manual) 3 % (0-3) Basophils % (Manual) 0 % (0-2) Band Neutrophils 0 % (0-8) Platelet Estimate Adequate Platelet Morphology Normal Hypochromasia 1+ Anisocytosis 1+ Sodium Level 143 MMOL/L (136-145) 144 MMOL/L (136-145) Potassium Level 4.5 MMOL/L (3.5-5.1) 4.0 MMOL/L (3.5-5.1) Chloride Level 110 MMOL/L (98-107) 110 MMOL/L (98-107) Carbon Dioxide Level 25 MMOL/L (21-32) 21 MMOL/L (21-32) Anion Gap 8 mmol/L (5-15) 13 mmol/L (5-15) Blood Urea Nitrogen 49 mg/dL (7-18) 37 mg/dL (7-18) Creatinine 2.6 MG/DL (0.55-1.30) 2.2 MG/DL (0.55-1.30) Estimat Glomerular Filtration Rate 25.0 mL/min (>60) 30.3 mL/min (>60) Glucose Level 51 MG/DL (74-106) 50 MG/DL (74-106) Calcium Level 8.5 MG/DL (8.5-10.1) 8.8 MG/DL (8.5-10.1) Phosphorus Level 3.8 MG/DL (2.5-4.9) 3.7 MG/DL (2.5-4.9) Magnesium Level 1.7 MG/DL (1.8-2.4) 1.7 MG/DL (1.8-2.4) Total Bilirubin 0.4 MG/DL (0.2-1.0) 0.5 MG/DL (0.2-1.0) Aspartate Amino Transf (AST/SGOT) 21 U/L (15-37) 20 U/L (15-37) Alanine Aminotransferase (ALT/SGPT) 38 U/L (12-78) 23 U/L (12-78) Alkaline Phosphatase 98 U/L (46-116) 103 U/L (46-116) Troponin I 0.498 ng/mL (0.000-0.056) Total Protein 6.2 G/DL (6.4-8.2) 6.4 G/DL (6.4-8.2) Albumin 3.2 G/DL (3.4-5.0) 3.0 G/DL (3.4-5.0) Globulin 3.0 g/dL 3.4 g/dL Albumin/Globulin Ratio 1.1 (1.0-2.7) 0.9 (1.0-2.7) Uric Acid 6.9 MG/DL (2.6-7.2) C-Reactive Protein, Quantitative 2.6 mg/dL (0.00-0.90) Pro-B-Type Natriuretic Peptide 39255 pg/mL (0-125) Height (Feet): 5 Height (Inches): 8.00 Weight (Pounds): 218 Objective PE Vitals: reviewed General Appearance: NAD + chronically ill HEENT: normocephalic, atraumatic ++ biconjunctival hemorrhage Neck: non-tender, normal alignment Respiratory/Chest: nromal breath sounds bilaterally Cardiovascular/Chest: normal peripheral pulses, normal rate Abdomen: normal bowel sounds, soft, nontender Extremities: normal range of motion, Right arm skin tear, left sided weaknness NEURO: ++ left sided weakness Nate Whyte MD Dec 07, 2019 16:23
--- NOTE | 2019-12-07 20:00 | NUR ---
NURSE NOTES: Received pt from LOU Huang. Pt awake, alert, and talkative. Bed in lowest position. Call light within reach. Will continue to monitor.
[2019-12-07] MEDS: Atorvastatin 20mg tab ORAL SCH (20:12)
[2019-12-08 04:00] VITALS: BP 150/77
--- NOTE | 2019-12-08 06:55 | NUR ---
HAND-OFF: Report given to LOU Cortes. Pt stable.
--- NOTE | 2019-12-08 07:00 | Hematology/Onc Progress Note ---
Assessment/Plan Assessment/Plan Assessment and Recs: # Anemia due to underlying GI bleed -- patient presents with hematemesis before and now with barb --> as per GI eval, may need endoscopy as needed --> has been started on ppi --> cea recently 1.8 --> Hgb goal >7. Transfuse prn. --> Will sign consent if necessary --> Epogen not started. iron iv but hold off for now since ferritin is 133 --> Consider octreotide gtt as per gi eval --> Medications have been reviewed --> Hgb 8.8 -->8.6-->8.7-->8.9-->7.9-->8.5 --> prbc: 1 unit 12/06 # Coagulation defect/Bleeding, multifactorial usually related to poor PO intake versus medications, in this case related to coumadin --> administer Vitamin K if patient is bleeding or FFP if the INR is >10 --> hold off on ffp unless active procedure/bleeding, first begin with vit K 10 --> mixing study as needed --> HAVE STOPPED COUMADIN --> per cards, hold off at this time, is aware of afib hx --> okay for asa and plavix # Anemia due to folic acid deficiency/iron deficiency as well --> prior folic acid<5 --> recheck levels now 32 # FTT -- failure to thrive --> mirtazapine per gi # Ned on ckd --> as per Dr. Farr --> recs noted --> hydration as needed --> meds noted # NSTEMI hx --> per cards # c.diff hx --> now resolved # Dvt ppx on scds now --> on plavix and asa The timing of this note does not necessarily reflect the time of the patient was seen. Greatly appreciate consultation. Subjective HEENT: Denies: no symptoms, eye pain, blurred vision, tearing, double vision, ear pain, ear discharge, nose pain, nose congestion, throat pain, throat swelling, mouth pain, mouth swelling, other Cardiovascular: Denies: no symptoms, chest pain, edema, irregular heart rate, lightheadedness, palpitations, syncope, other Respiratory: Denies: no symptoms, cough, shortness of breath, SOB with excertion, SOB at rest, sputum, wheezing, other Gastrointestinal/Abdominal: Denies: no symptoms, abdomen distended, abdominal pain, black stools, tarry stools, blood in stool, constipated, diarrhea, difficulty swallowing, nausea, poor appetite, poor fluid intake, rectal bleeding , vomiting, other Genitourinary: Denies: no symptoms, burning, discharge, frequency, flank pain, hematuria, incontinence, pain, urgency, other Neurologic/Psychiatric: Denies: no symptoms, anxiety, depressed, emotional problems, headache, numbness, paresthesia, pre-existing deficit, seizure, tingling, tremors, weakness, other Endocrine: Denies: no symptoms, excessive sweating, flushing, intolerance to cold, intolerance to heat, increased hunger, increased thirst, increased urine, unexplained weight gain, unexplained weight loss, other Hematologic/Lymphatic: Denies: no symptoms, anemia, easy bleeding, easy bruising, adenopathy, other Allergies: Coded Allergies: No Known Allergies (Unverified , 10/07/17) Subjective 12/04 no major events, labs noted, hgb remains 7.9, no bleeding at this time 12/06 on tele, prbc ordered, elevated bp, no sob 12/07 no bleeding or chills, labs noted, no night sweats Objective Objective Current Medications Medications (Trade) Dose Ordered Sig/Leon Route PRN Reason Start Time Stop Time Status Last Admin Dose Admin Acetaminophen (Tylenol) 500 mg Q6H PRN ORAL Mild Pain/Temp > 100.5 12/03/19 19:15 01/02/20 19:14 12/06/19 00:29 Acetaminophen (Tylenol) 650 mg Q6H PRN ORAL Pain Scale (3-5) 12/03/19 20:15 01/02/20 20:14 Amlodipine Besylate (Norvasc) 5 mg DAILY ORAL 12/04/19 09:00 01/03/20 08:59 12/07/19 09:29 Aspirin (Ecotrin) 81 mg DAILY ORAL 12/04/19 09:00 01/18/20 08:59 12/07/19 09:29 Atorvastatin Calcium (Lipitor) 40 mg BEDTIME ORAL 12/04/19 21:00 03/02/20 20:59 12/07/19 20:12 Clopidogrel Bisulfate (Plavix) 75 mg DAILY ORAL 12/04/19 09:00 01/03/20 08:59 12/07/19 09:29 Docusate Sodium (Colace) 100 mg THREE TIMES A DAY ORAL 12/04/19 09:00 01/03/20 08:59 12/07/19 18:05 Finasteride (Proscar) 5 mg DAILY ORAL 12/04/19 09:00 03/03/20 08:59 12/07/19 09:29 Hydralazine HCl (Apresoline) 25 mg Q4H PRN ORAL BP over 160 systolic 12/03/19 20:15 03/02/20 20:14 Levothyroxine Sodium (Synthroid) 200 mcg ACBREAKFAST ORAL 12/04/19 06:30 01/03/20 06:29 12/08/19 05:17 Metoprolol Tartrate (Lopressor) 12.5 mg EVERY 12 HOURS ORAL 12/06/19 21:00 03/03/20 20:59 12/07/19 20:13 Mirtazapine (Remeron) 15 mg HSPRN PRN ORAL Insomnia 12/03/19 20:15 03/02/20 20:14 Nitroglycerin (Ntg) 1 patch Q24H TDERMAL 12/04/19 12:30 01/03/20 12:29 12/07/19 12:30 Pantoprazole (Protonix) 40 mg EVERY 12 HOURS ORAL 12/05/19 21:00 01/04/20 20:59 12/07/19 20:12 Sodium Chloride 1,000 ml @ 50 mls/hr Q20H IV 12/03/19 20:00 01/02/20 19:59 12/07/19 18:05 Tamsulosin HCl (Flomax) 0.4 mg BID ORAL 12/04/19 12:10 01/03/20 12:09 12/07/19 18:07 Last 24 Hour Vital Signs Date Time Temp Pulse Resp B/P (MAP) Pulse Ox O2 Delivery O2 Flow Rate FiO2 12/08/19 04:00 98.2 60 20 150/77 (101) 95 12/08/19 04:00 58 12/08/19 00:00 52 12/07/19 23:55 97.8 58 20 150/65 (93) 95 12/07/19 21:00 Room Air 12/07/19 20:13 61 150/78 12/07/19 20:00 60 12/07/19 20:00 97.9 61 18 150/78 (102) 96 12/07/19 16:00 68 12/07/19 16:00 97.5 68 16 144/74 (97) 96 12/07/19 12:30 150/71 12/07/19 12:00 97.7 52 18 143/74 (97) 96 12/07/19 12:00 54 12/07/19 09:29 66 150/71 12/07/19 09:29 66 150/71 12/07/19 08:22 Room Air 12/07/19 08:00 68 12/07/19 08:00 97.5 66 20 150/71 (97) 95 12/07/19 04:00 57 12/07/19 04:00 98.2 59 26 145/68 (93) 93 12/07/19 00:00 57 12/07/19 00:00 98.4 54 26 143/69 (93) 94 12/06/19 21:00 Room Air 12/06/19 21:00 56 140/65 12/06/19 20:00 98.2 56 26 146/65 (92) 94 12/06/19 20:00 52 12/06/19 16:00 60 12/06/19 16:00 Room Air 12/06/19 12:30 113/63 12/06/19 11:39 Room Air 12/06/19 11:35 55 12/06/19 10:55 57 154/64 12/06/19 08:00 Room Air Intake and Output 12/07/19 12/08/19 19:00 07:00 Intake Total 360 ml 240 ml Output Total 550 ml 600 ml Balance -190 ml -360 ml Intake Oral 360 ml 240 ml Output Urine Total 550 ml 600 ml # Voids 3 # Bowel Movements 1 1 Labs Test 12/07/19 02:50 White Blood Count 6.7 K/UL (4.8-10.8) Red Blood Count 2.76 M/UL (4.70-6.10) Hemoglobin 8.5 G/DL (14.2-18.0) Hematocrit 25.3 % (42.0-52.0) Mean Corpuscular Volume 92 FL (80-99) Mean Corpuscular Hemoglobin 30.6 PG (27.0-31.0) Mean Corpuscular Hemoglobin Concent 33.5 G/DL (32.0-36.0) Red Cell Distribution Width 14.4 % (11.6-14.8) Platelet Count 219 K/UL (150-450) Mean Platelet Volume 7.0 FL (6.5-10.1) Neutrophils (%) (Auto) 63.1 % (45.0-75.0) Lymphocytes (%) (Auto) 19.5 % (20.0-45.0) Monocytes (%) (Auto) 9.2 % (1.0-10.0) Eosinophils (%) (Auto) 7.4 % (0.0-3.0) Basophils (%) (Auto) 0.8 % (0.0-2.0) Sodium Level 144 MMOL/L (136-145) Potassium Level 4.0 MMOL/L (3.5-5.1) Chloride Level 110 MMOL/L (98-107) Carbon Dioxide Level 21 MMOL/L (21-32) Anion Gap 13 mmol/L (5-15) Blood Urea Nitrogen 37 mg/dL (7-18) Creatinine 2.2 MG/DL (0.55-1.30) Estimat Glomerular Filtration Rate 30.3 mL/min (>60) Glucose Level 50 MG/DL (74-106) Uric Acid 6.9 MG/DL (2.6-7.2) Calcium Level 8.8 MG/DL (8.5-10.1) Phosphorus Level 3.7 MG/DL (2.5-4.9) Magnesium Level 1.7 MG/DL (1.8-2.4) Total Bilirubin 0.5 MG/DL (0.2-1.0) Aspartate Amino Transf (AST/SGOT) 20 U/L (15-37) Alanine Aminotransferase (ALT/SGPT) 23 U/L (12-78) Alkaline Phosphatase 103 U/L (46-116) C-Reactive Protein, Quantitative 2.6 mg/dL (0.00-0.90) Pro-B-Type Natriuretic Peptide 72988 pg/mL (0-125) Total Protein 6.4 G/DL (6.4-8.2) Albumin 3.0 G/DL (3.4-5.0) Globulin 3.4 g/dL Albumin/Globulin Ratio 0.9 (1.0-2.7) Height (Feet): 5 Height (Inches): 8.00 Weight (Pounds): 218 Objective PE Vitals: reviewed General Appearance: NAD + chronically ill HEENT: normocephalic, atraumatic ++ biconjunctival hemorrhage Neck: non-tender, normal alignment Respiratory/Chest: nromal breath sounds bilaterally Cardiovascular/Chest: normal peripheral pulses, normal rate Abdomen: normal bowel sounds, soft, nontender Extremities: normal range of motion, Right arm skin tear, left sided weaknness NEURO: ++ left sided weakness Nate Whyte MD Dec 08, 2019 07:00
--- NOTE | 2019-12-08 07:00 | NUR ---
NURSE NOTES: Received report from Coty/RN, Patient is awake, alert, eating breakfast on bed. On room air, No acute distress/SOB noted. Breathing unlabored and even. Able to make needs known. Johanna pain at this time. IV on Left and right wrist 22 G, Intact, no bleeding or infiltration noted. 1/2 NS running @50cc/hr. Bed in low position and locked, Bed alarm engaged, Side rails up x3, Call light within reach. Encouraged to use call light when needed. Will continue plan of care.
[2019-12-08 08:00] VITALS: BP 156/88
[2019-12-08] MEDS: Docusate 100mg cap ORAL SCH ×3 (08:56→17:20)
[2019-12-08] MEDS: Aspirin EC 81mg tab ORAL SCH (08:56)
[2019-12-08] MEDS: Tamsulosin 0.4mg cap ORAL SCH ×2 (08:56→17:20)
--- NOTE | 2019-12-08 10:32 | NUR ---
CASE MANAGEMENT:REVIEW 12/08/19 SI: SPHENOID MASS W/NASAL BLEEDING AC/CHR RENAL FAILURE 97.7 55 20 156/88 95% ON RA IS: IVF@50/HR LOPRESSOR PO Q12 PROTONIX PO Q12 LIPITOR PO QHS FLOMAX PO BID ASA PO QD PLAVIX PO QD NORVASC PO QD SYNTHROID PO QAM : TELEMETRY STATUS DCP: FROM [facility] PLAN: UNSAFE TO DISCHARGE PER DR MONK
--- NOTE | 2019-12-08 10:44 | Infectious Diseases Prog Note ---
Assessment/Plan Assessment/Plan IMPRESSION: 1. Sphenoid mass with nasal bleeding. 2. Acute renal failure. 3. Chronic kidney disease. 4. Diabetes mellitus type 2. 5. Hypertension. 6. History of CVA. 7. Hypothyroidism. 8. BPH. RECOMMENDATION: Observe off antibiotic Needs biopsy from sinus Subjective ROS Limited/Unobtainable: Yes Allergies: Coded Allergies: No Known Allergies (Unverified , 10/07/17) Objective Vital Signs Last 24 Hour Vital Signs Date Time Temp Pulse Resp B/P (MAP) Pulse Ox O2 Delivery O2 Flow Rate FiO2 12/08/19 08:57 55 156/88 12/08/19 08:56 55 156/88 12/08/19 08:00 97.7 55 20 156/88 (110) 95 12/08/19 04:00 98.2 60 20 150/77 (101) 95 12/08/19 04:00 58 12/08/19 00:00 52 12/07/19 23:55 97.8 58 20 150/65 (93) 95 12/07/19 21:00 Room Air 12/07/19 20:13 61 150/78 12/07/19 20:00 60 12/07/19 20:00 97.9 61 18 150/78 (102) 96 12/07/19 16:00 68 12/07/19 16:00 97.5 68 16 144/74 (97) 96 12/07/19 12:30 150/71 12/07/19 12:00 97.7 52 18 143/74 (97) 96 12/07/19 12:00 54 Height (Feet): 5 Height (Inches): 8.00 Weight (Pounds): 218 General Appearance: no acute distress HEENT: mucous membranes moist Respiratory/Chest: lungs clear Cardiovascular: normal rate Abdomen: soft, non tender Extremities: no edema Neurologic/Psychiatric: other - sleeping Current Medications Medications (Trade) Dose Ordered Sig/Leon Route PRN Reason Start Time Stop Time Status Last Admin Dose Admin Acetaminophen (Tylenol) 500 mg Q6H PRN ORAL Mild Pain/Temp > 100.5 12/03/19 19:15 01/02/20 19:14 12/06/19 00:29 Acetaminophen (Tylenol) 650 mg Q6H PRN ORAL Pain Scale (3-5) 12/03/19 20:15 01/02/20 20:14 Amlodipine Besylate (Norvasc) 5 mg DAILY ORAL 12/04/19 09:00 01/03/20 08:59 12/08/19 08:56 Aspirin (Ecotrin) 81 mg DAILY ORAL 12/04/19 09:00 01/18/20 08:59 12/08/19 08:56 Atorvastatin Calcium (Lipitor) 40 mg BEDTIME ORAL 12/04/19 21:00 03/02/20 20:59 12/07/19 20:12 Clopidogrel Bisulfate (Plavix) 75 mg DAILY ORAL 12/04/19 09:00 01/03/20 08:59 12/08/19 08:56 Docusate Sodium (Colace) 100 mg THREE TIMES A DAY ORAL 12/04/19 09:00 01/03/20 08:59 12/08/19 08:56 Finasteride (Proscar) 5 mg DAILY ORAL 12/04/19 09:00 03/03/20 08:59 12/08/19 08:56 Hydralazine HCl (Apresoline) 25 mg Q4H PRN ORAL BP over 160 systolic 12/03/19 20:15 03/02/20 20:14 Levothyroxine Sodium (Synthroid) 200 mcg ACBREAKFAST ORAL 12/04/19 06:30 01/03/20 06:29 12/08/19 05:17 Metoprolol Tartrate (Lopressor) 12.5 mg EVERY 12 HOURS ORAL 12/06/19 21:00 03/03/20 20:59 12/08/19 08:57 Mirtazapine (Remeron) 15 mg HSPRN PRN ORAL Insomnia 12/03/19 20:15 03/02/20 20:14 Nitroglycerin (Ntg) 1 patch Q24H TDERMAL 12/04/19 12:30 01/03/20 12:29 12/07/19 12:30 Pantoprazole (Protonix) 40 mg EVERY 12 HOURS ORAL 12/05/19 21:00 01/04/20 20:59 12/08/19 08:56 Sodium Chloride 1,000 ml @ 50 mls/hr Q20H IV 12/03/19 20:00 01/02/20 19:59 12/08/19 08:57 Tamsulosin HCl (Flomax) 0.4 mg BID ORAL 12/04/19 12:10 01/03/20 12:09 12/08/19 08:56 Troy Yeboah MD Dec 08, 2019 10:44
[2019-12-08 12:00] VITALS: BP 150/61
[2019-12-08] MEDS: Nitroglycerin Patch 0.4mg TDERMAL SCH (12:56)
--- NOTE | 2019-12-08 13:11 | NUR ---
RD ASSESSMENT & RECOMMENDATIONS SEE CARE ACTIVITY FOR COMPLETE ASSESSMENT DAILY ESTIMATED NEEDS: Needs based on DM, Cardiac / 78kg abw 22-25 kcals/kg 6273-8852 total kcals 1-1.5 g protein/kg 78-117 g total protein 22-25ml/kcal mL/kg 9834-0178 total fluid mLs NUTRITION DIAGNOSIS: * Altered nutrition related lab values R/T diabetes, cardiac hx as evidenced by hypoglycemia (50 51), A1C 6.2, elev BNP (60706), elev BP(156/88) w. h/o CVA, CURRENT DIET:Regular puree PO DIET RECOMMENDATIONS: LIBERALIZED REGULAR DIET W/ POOR PO/ texture per TRACK MAN ADDITIONAL RECOMMENDATIONS: * Monitor for hypoglycemia w/ poor PO, snacks TID in b/w meals added * Liberalized regular diet w/ poor PO * TRACK MAN for appropriate texture * Add Glucerna (220kcal/10g prot each) TID to meals * Rec accuchecks / POC . .
--- NOTE | 2019-12-08 13:22 | Nephrology Progress Note ---
Assessment/Plan Problem List: (1) Renal failure (ARF), acute on chronic Assessment: Serum creatinine is lowering (2) Anemia in chronic kidney disease (CKD) (3) Diabetic nephropathy (4) Elevated troponin Assessment 1) Renal failure (ARF), acute on chronic (2) Elevated troponin, bradycardia (3) Anemia of chronic kidney disease, s/p GI Bleed on anticoagulation (4) Hypothyroid by history (5) HTN (hypertension) (6) Diabetic nephropathy, periodic of hypoglycemia in the past other diagnosis History of urinary retention h/o Hypertension h/o UTI Plan Slow hydrate Down on Lopressor orders dose due to bradycardia Change Protonix to p.o. Monitor renal parameters Keep the blood pressure and blood sugar in check Per orders Discussed with RN Subjective ROS Limited/Unobtainable: No Objective Objective Last 24 Hour Vital Signs Date Time Temp Pulse Resp B/P (MAP) Pulse Ox O2 Delivery O2 Flow Rate FiO2 12/08/19 12:56 150/61 12/08/19 09:00 Room Air 12/08/19 08:57 55 156/88 12/08/19 08:56 55 156/88 12/08/19 08:00 97.7 55 20 156/88 (110) 95 12/08/19 08:00 55 12/08/19 04:00 98.2 60 20 150/77 (101) 95 12/08/19 04:00 58 12/08/19 00:00 52 12/07/19 23:55 97.8 58 20 150/65 (93) 95 12/07/19 21:00 Room Air 12/07/19 20:13 61 150/78 12/07/19 20:00 60 12/07/19 20:00 97.9 61 18 150/78 (102) 96 12/07/19 16:00 68 12/07/19 16:00 97.5 68 16 144/74 (97) 96 Intake and Output 12/07/19 12/08/19 19:00 07:00 Intake Total 360 ml 240 ml Output Total 550 ml 600 ml Balance -190 ml -360 ml Intake Oral 360 ml 240 ml Output Urine Total 550 ml 600 ml # Voids 3 # Bowel Movements 1 1 Current Medications Medications (Trade) Dose Ordered Sig/Leon Route PRN Reason Start Time Stop Time Status Last Admin Dose Admin Acetaminophen (Tylenol) 500 mg Q6H PRN ORAL Mild Pain/Temp > 100.5 12/03/19 19:15 01/02/20 19:14 12/06/19 00:29 Acetaminophen (Tylenol) 650 mg Q6H PRN ORAL Pain Scale (3-5) 12/03/19 20:15 01/02/20 20:14 Amlodipine Besylate (Norvasc) 5 mg DAILY ORAL 12/04/19 09:00 01/03/20 08:59 12/08/19 08:56 Aspirin (Ecotrin) 81 mg DAILY ORAL 12/04/19 09:00 01/18/20 08:59 12/08/19 08:56 Atorvastatin Calcium (Lipitor) 40 mg BEDTIME ORAL 12/04/19 21:00 03/02/20 20:59 12/07/19 20:12 Clopidogrel Bisulfate (Plavix) 75 mg DAILY ORAL 12/04/19 09:00 01/03/20 08:59 12/08/19 08:56 Dextrose (Dextrose 50%) 25 ml Q30M PRN IV Hypoglycemia 12/08/19 13:15 03/07/20 13:14 UNV Dextrose (Dextrose 50%) 50 ml Q30M PRN IV Hypoglycemia 12/08/19 13:15 03/07/20 13:14 UNV Dextrose/Sodium Chloride 1,000 ml @ 50 mls/hr Q20H IV 12/08/19 13:15 01/07/20 13:14 UNV Docusate Sodium (Colace) 100 mg THREE TIMES A DAY ORAL 12/04/19 09:00 01/03/20 08:59 12/08/19 12:55 Finasteride (Proscar) 5 mg DAILY ORAL 12/04/19 09:00 03/03/20 08:59 12/08/19 08:56 Hydralazine HCl (Apresoline) 25 mg Q4H PRN ORAL BP over 160 systolic 12/03/19 20:15 03/02/20 20:14 Insulin Aspart (NovoLOG) BEFORE MEALS AND HS SUBQ 12/08/19 16:30 03/07/20 16:29 UNV Levothyroxine Sodium (Synthroid) 200 mcg ACBREAKFAST ORAL 12/04/19 06:30 01/03/20 06:29 12/08/19 05:17 Metoprolol Tartrate (Lopressor) 12.5 mg EVERY 12 HOURS ORAL 12/06/19 21:00 03/03/20 20:59 12/08/19 08:57 Mirtazapine (Remeron) 15 mg HSPRN PRN ORAL Insomnia 12/03/19 20:15 03/02/20 20:14 Nitroglycerin (Ntg) 1 patch Q24H TDERMAL 12/04/19 12:30 01/03/20 12:29 12/08/19 12:56 Pantoprazole (Protonix) 40 mg EVERY 12 HOURS ORAL 12/05/19 21:00 01/04/20 20:59 12/08/19 08:56 Tamsulosin HCl (Flomax) 0.4 mg BID ORAL 12/04/19 12:10 01/03/20 12:09 12/08/19 08:56 Height (Feet): 5 Height (Inches): 8.00 Weight (Pounds): 218 Cardiovascular: normal rate Respiratory/Chest: decreased breath sounds Abdomen: soft Objective No change Rafa Farr MD Dec 08, 2019 13:22
--- NOTE | 2019-12-08 13:28 | NUR ---
P.T Note: P.T evaluation completed and tx initiated. Please refer to P.T evaluation for current functional status.
--- NOTE | 2019-12-08 13:31 | Cardiac Electrophysiology PN ---
Assessment/Plan Assessment/Plan 1. CHronic Elevated troponin. Troponin levels are flat. Likely due to renal failure creatinine of 2.6. Denies any chest pain. Continue aspirin, Plavix and metoprolol. Echo Nl EF 55% . 2. Hypertension, on Norvasc 5 mg daily and Lopressor 12.5 mg b.i.d. 3. Hypothyroidism, on Synthroid. 4. Hyperlipidemia, on Lipitor. 5. Anemia. Fu by Dr. Whyte. Also has bleeding from both nostrils 6. Renal failure due to diabetic nephropathy. Fu by Dr. Farr. 7. 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 FU ENT and Dr. Brown DW RN Subjective Subjective No further bleeding. Confused in NAD.In Sinus ludwig 57. Objective Last 24 Hour Vital Signs Date Time Temp Pulse Resp B/P (MAP) Pulse Ox O2 Delivery O2 Flow Rate FiO2 12/08/19 12:56 150/61 12/08/19 09:00 Room Air 12/08/19 08:57 55 156/88 12/08/19 08:56 55 156/88 12/08/19 08:00 97.7 55 20 156/88 (110) 95 12/08/19 08:00 55 12/08/19 04:00 98.2 60 20 150/77 (101) 95 12/08/19 04:00 58 12/08/19 00:00 52 12/07/19 23:55 97.8 58 20 150/65 (93) 95 12/07/19 21:00 Room Air 12/07/19 20:13 61 150/78 12/07/19 20:00 60 12/07/19 20:00 97.9 61 18 150/78 (102) 96 12/07/19 16:00 68 12/07/19 16:00 97.5 68 16 144/74 (97) 96 Intake and Output 12/07/19 12/08/19 19:00 07:00 Intake Total 360 ml 240 ml Output Total 550 ml 600 ml Balance -190 ml -360 ml Intake Oral 360 ml 240 ml Output Urine Total 550 ml 600 ml # Voids 3 # Bowel Movements 1 1 Objective HEAD AND NECK: Showed no JVD. LUNGS: Clear. CARDIOVASCULAR: Shows regular S1 and S2 with no gallop or murmur. ABDOMEN: Soft. EXTREMITIES: Left hemiplegia. Castillo Bazan MD Dec 08, 2019 13:31
[2019-12-08] MEDS: D5NS 1,000 ML IV SCH (14:06)
[2019-12-08 15:55] VITALS: BP 145/62
--- NOTE | 2019-12-08 16:13 | NUR ---
*-* INSURANCE *-* ALL CLINICALS AND REVIEWS HAVE BEEN FAXED TO: [facility] NO REF# PH: [phone] FAX: [phone]
[2019-12-08] MEDS: NovoLOG Insulin Flexpen SUBQ SCH ×2 (16:30→21:00)
--- NOTE | 2019-12-08 19:15 | NUR ---
NURSE NOTES: Received pt and report from LOU Cortes. Observed pt resting in bed with both eyes open. Pt is A/Ox3. saturation diver is in placed; pt is SB on client advisor (HR 56). IV site intact, asymptomatic, and patent. Bed is in the lowest position and locked. Call light and beside table is within reach. No signs/symptoms of acute distress noted at this time. Will continue plan of care.
--- NOTE | 2019-12-08 19:25 | NUR ---
HAND-OFF: Report given to Chely/RN, Patient is in stable condition. Endorsed plan of care.
[2019-12-08 20:00] VITALS: BP 155/79
--- NOTE | 2019-12-08 20:47 | General Progress Note ---
Assessment/Plan Problem List: (1) Bradycardia ICD Codes: R00.1 - Bradycardia, unspecified SNOMED: 05512415 (2) CHF (congestive heart failure) ICD Codes: I50.9 - Heart failure, unspecified SNOMED: 67483935 (3) Sphenoid mass ICD Codes: J34.89 - Other specified disorders of nose and nasal sinuses SNOMED: 775040448, 6437984, 649198695 (4) ANGEL (acute kidney injury) ICD Codes: N17.9 - Acute kidney failure, unspecified SNOMED: 38215082, 6365446, 569963518 (5) Anemia ICD Codes: D64.9 - Anemia, unspecified SNOMED: 913637882 (6) Nosebleed ICD Codes: R04.0 - Epistaxis SNOMED: 297920430 (7) Diabetic nephropathy ICD Codes: E11.21 - Type 2 diabetes mellitus with diabetic nephropathy SNOMED: 385507908 (8) Anemia in chronic kidney disease (CKD) ICD Codes: N18.9 - Chronic kidney disease, unspecified; D63.1 - Anemia in chronic kidney disease SNOMED: 234348962 (9) Renal failure (ARF), acute on chronic ICD Codes: N17.9 - Acute kidney failure, unspecified; N18.9 - Chronic kidney disease, unspecified SNOMED: 411911406 Status: progressing Assessment/Plan: spenoid mass.consulted dr patino for this and asked him to see for sphenoid mass cri bradycardia low sugar nonverbal lethargy no nosebleed Subjective ROS Limited/Unobtainable: Yes Allergies: Coded Allergies: No Known Allergies (Unverified , 10/07/17) Objective Last 24 Hour Vital Signs Date Time Temp Pulse Resp B/P (MAP) Pulse Ox O2 Delivery O2 Flow Rate FiO2 12/08/19 16:00 48 12/08/19 15:55 97.2 49 20 145/62 (89) 97 12/08/19 12:56 150/61 12/08/19 12:00 53 12/08/19 12:00 98.2 49 20 150/61 (90) 96 12/08/19 09:00 Room Air 12/08/19 08:57 55 156/88 12/08/19 08:56 55 156/88 12/08/19 08:00 97.7 55 20 156/88 (110) 95 3/23/20 08:00 55 12/08/19 04:00 98.2 60 20 150/77 (101) 95 12/08/19 04:00 58 12/08/19 00:00 52 12/07/19 23:55 97.8 58 20 150/65 (93) 95 12/07/19 21:00 Room Air Intake and Output 12/07/19 12/08/19 19:00 07:00 Intake Total 360 ml 240 ml Output Total 550 ml 600 ml Balance -190 ml -360 ml Intake Oral 360 ml 240 ml Output Urine Total 550 ml 600 ml # Voids 3 # Bowel Movements 1 1 Height (Feet): 5 Height (Inches): 8.00 Weight (Pounds): 218 Neck: normal inspection Cardiovascular: normal rate Respiratory/Chest: lungs clear Oni Schilling MD Dec 08, 2019 20:47
[2019-12-08] MEDS: Atorvastatin 20mg tab ORAL SCH (21:54)
--- NOTE | 2019-12-08 22:00 | NUR ---
NURSE NOTES: Non-admin insulin subQ. BS 142. Endorsed by LOU Cortes that pt has not been eating much. Pt has been having low appetite. Ask pt if he would like a snack; pt refused. Will monitor pt closely.
[2019-12-09] VITALS: BP 148/72
[2019-12-09 04:00] VITALS: BP 156/76
[2019-12-09] MEDS: NovoLOG Insulin Flexpen SUBQ SCH ×4 (05:36→20:48)
--- NOTE | 2019-12-09 07:16 | NUR ---
NURSE NOTES: Received report from Chely/RN, Patient is awake, alert, x3. On room air, No acute distress/SOB noted. Breathing unlabored and even. Able to make needs known. Johanna pain at this time. IV on Left and right hand 22 G, Intact, no bleeding or infiltration noted. 1/2 NS running @50cc/hr. Bed in low position and locked, Bed alarm engaged, Side rails up x3, Call light within reach, Encouraged to use call light when needed. Will continue plan of care.
--- NOTE | 2019-12-09 07:57 | NUR ---
HAND-OFF: Report given to LOU Cortes. Plan of care endorsed.
[2019-12-09 08:00] VITALS: BP 160/80
[2019-12-09] MEDS: Aspirin EC 81mg tab ORAL SCH (08:27)
[2019-12-09] MEDS: Tamsulosin 0.4mg cap ORAL SCH ×2 (08:27→17:24)
[2019-12-09] MEDS: Docusate 100mg cap ORAL SCH ×3 (08:27→17:24)
[2019-12-09] MEDS: D5NS 1,000 ML IV SCH (08:30)
[2019-12-09 10:22] LABS: BASOPHILS % (AUTO) 1.6 % (0.0-2.0); EOSINOPHILS % (AUTO) 8.9 % (0.0-3.0); HEMATOCRIT 31.4 % (42.0-52.0); HEMOGLOBIN 10.5 G/DL (14.2-18.0); LYMPHOCYTES % (AUTO) 14.1 % (20.0-45.0); MEAN CORPUSCULAR VOLUME 91 FL (80-99); MONOCYTES % (AUTO) 7.4 % (1.0-10.0); PLATELET COUNT 259 K/UL (150-450); RED BLOOD COUNT 3.44 M/UL (4.70-6.10); RED CELL DISTRIBUTION WIDTH 14.6 % (11.6-14.8)
[2019-12-09 10:28] LABS: ANION GAP 14 mmol/L (5-15); BLOOD UREA NITROGEN 20 mg/dL (7-18); CALCIUM 8.8 MG/DL (8.5-10.1); CARBON DIOXIDE 20 MMOL/L (21-32); CHLORIDE 107 MMOL/L (98-107); CREATININE 1.9 MG/DL (0.55-1.30); POTASSIUM 4.1 MMOL/L (3.5-5.1); SODIUM 141 MMOL/L (136-145)
[2019-12-09 10:38] LABS: ALANINE AMINOTRANSFERASE 26 U/L (12-78); ALBUMIN 3.4 G/DL (3.4-5.0); ALBUMIN/GLOBULIN RATIO 0.9 (1.0-2.7); ALKALINE PHOSPHATASE 119 U/L (46-116); ASPARTATE AMINO TRANSFERASE 19 U/L (15-37); BILIRUBIN,TOTAL 0.7 MG/DL (0.2-1.0); PHOSPHORUS 3.3 MG/DL (2.5-4.9)
--- NOTE | 2019-12-09 11:06 | Infectious Diseases Prog Note ---
Assessment/Plan Assessment/Plan IMPRESSION: 1. Sphenoid mass with nasal bleeding. 2. Acute renal failure. 3. Chronic kidney disease. 4. Diabetes mellitus type 2. 5. Hypertension. 6. History of CVA. 7. Hypothyroidism. 8. BPH. RECOMMENDATION: Observe off antibiotic Needs biopsy from sinus likely as outpatient Subjective ROS Limited/Unobtainable: No Constitutional: Reports: no symptoms HEENT: Reports: no symptoms Cardiovascular: Reports: no symptoms Gastrointestinal/Abdominal: Reports: no symptoms Genitourinary: Reports: no symptoms Allergies: Coded Allergies: No Known Allergies (Unverified , 10/07/17) Objective Vital Signs Last 24 Hour Vital Signs Date Time Temp Pulse Resp B/P (MAP) Pulse Ox O2 Delivery O2 Flow Rate FiO2 12/09/19 08:28 52 160/80 12/09/19 08:27 52 160/80 12/09/19 08:00 96.7 52 19 160/80 (106) 96 12/09/19 04:00 52 12/09/19 04:00 96.8 58 19 156/76 (102) 96 12/09/19 00:00 97.5 63 18 148/72 (97) 96 12/09/19 00:00 62 12/08/19 21:55 66 155/79 12/08/19 21:00 Room Air 12/08/19 20:00 96.8 58 18 155/79 (104) 96 12/08/19 20:00 52 12/08/19 16:00 48 12/08/19 15:55 97.2 49 20 145/62 (89) 97 12/08/19 12:56 150/61 12/08/19 12:00 53 12/08/19 12:00 98.2 49 20 150/61 (90) 96 Height (Feet): 5 Height (Inches): 8.00 Weight (Pounds): 218 General Appearance: no acute distress HEENT: mucous membranes moist Respiratory/Chest: lungs clear Cardiovascular: normal rate Abdomen: soft, non tender Extremities: other - edward ankle edema Neurologic/Psychiatric: alert, responsive Laboratory Tests Test 12/09/19 09:45 White Blood Count 8.0 K/UL (4.8-10.8) Red Blood Count 3.44 M/UL (4.70-6.10) L Hemoglobin 10.5 G/DL (14.2-18.0) L Hematocrit 31.4 % (42.0-52.0) L Mean Corpuscular Volume 91 FL (80-99) Mean Corpuscular Hemoglobin 30.7 PG (27.0-31.0) Mean Corpuscular Hemoglobin Concent 33.6 G/DL (32.0-36.0) Red Cell Distribution Width 14.6 % (11.6-14.8) Platelet Count 259 K/UL (150-450) Mean Platelet Volume 6.5 FL (6.5-10.1) Neutrophils (%) (Auto) 68.0 % (45.0-75.0) Lymphocytes (%) (Auto) 14.1 % (20.0-45.0) L Monocytes (%) (Auto) 7.4 % (1.0-10.0) Eosinophils (%) (Auto) 8.9 % (0.0-3.0) H Basophils (%) (Auto) 1.6 % (0.0-2.0) Sodium Level 141 MMOL/L (136-145) Potassium Level 4.1 MMOL/L (3.5-5.1) Chloride Level 107 MMOL/L (98-107) Carbon Dioxide Level 20 MMOL/L (21-32) L Anion Gap 14 mmol/L (5-15) Blood Urea Nitrogen 20 mg/dL (7-18) H Creatinine 1.9 MG/DL (0.55-1.30) H Estimat Glomerular Filtration Rate 35.9 mL/min (>60) Glucose Level 162 MG/DL (74-106) H Calcium Level 8.8 MG/DL (8.5-10.1) Phosphorus Level 3.3 MG/DL (2.5-4.9) Magnesium Level 1.8 MG/DL (1.8-2.4) Total Bilirubin 0.7 MG/DL (0.2-1.0) Aspartate Amino Transf (AST/SGOT) 19 U/L (15-37) Alanine Aminotransferase (ALT/SGPT) 26 U/L (12-78) Alkaline Phosphatase 119 U/L (46-116) H C-Reactive Protein, Quantitative 1.9 mg/dL (0.00-0.90) H Pro-B-Type Natriuretic Peptide 58773 pg/mL (0-125) H Total Protein 7.4 G/DL (6.4-8.2) Albumin 3.4 G/DL (3.4-5.0) Globulin 4.0 g/dL Albumin/Globulin Ratio 0.9 (1.0-2.7) L Current Medications Medications (Trade) Dose Ordered Sig/Leon Route PRN Reason Start Time Stop Time Status Last Admin Dose Admin Acetaminophen (Tylenol) 500 mg Q6H PRN ORAL Mild Pain/Temp > 100.5 12/03/19 19:15 01/02/20 19:14 12/06/19 00:29 Acetaminophen (Tylenol) 650 mg Q6H PRN ORAL Pain Scale (3-5) 12/03/19 20:15 01/02/20 20:14 Amlodipine Besylate (Norvasc) 5 mg DAILY ORAL 12/04/19 09:00 01/03/20 08:59 12/09/19 08:27 Aspirin (Ecotrin) 81 mg DAILY ORAL 12/04/19 09:00 01/18/20 08:59 12/09/19 08:27 Atorvastatin Calcium (Lipitor) 40 mg BEDTIME ORAL 12/04/19 21:00 03/02/20 20:59 12/08/19 21:54 Clopidogrel Bisulfate (Plavix) 75 mg DAILY ORAL 12/04/19 09:00 01/03/20 08:59 12/09/19 08:28 Dextrose (Dextrose 50%) 25 ml Q30M PRN IV Hypoglycemia 12/08/19 13:15 03/07/20 13:14 Dextrose (Dextrose 50%) 50 ml Q30M PRN IV Hypoglycemia 12/08/19 13:15 03/07/20 13:14 Dextrose/Sodium Chloride 1,000 ml @ 50 mls/hr Q20H IV 12/08/19 13:29 01/07/20 13:28 12/09/19 08:30 Docusate Sodium (Colace) 100 mg THREE TIMES A DAY ORAL 12/04/19 09:00 01/03/20 08:59 12/09/19 08:27 Finasteride (Proscar) 5 mg DAILY ORAL 12/04/19 09:00 03/03/20 08:59 12/09/19 08:27 Hydralazine HCl (Apresoline) 25 mg Q4H PRN ORAL BP over 160 systolic 12/03/19 20:15 03/02/20 20:14 Insulin Aspart (NovoLOG) BEFORE MEALS AND HS SUBQ 12/08/19 16:30 03/07/20 16:29 Levothyroxine Sodium (Synthroid) 200 mcg ACBREAKFAST ORAL 12/04/19 06:30 01/03/20 06:29 12/09/19 05:36 Metoprolol Tartrate (Lopressor) 12.5 mg EVERY 12 HOURS ORAL 12/06/19 21:00 03/03/20 20:59 12/09/19 08:28 Mirtazapine (Remeron) 15 mg HSPRN PRN ORAL Insomnia 12/03/19 20:15 03/02/20 20:14 Nitroglycerin (Ntg) 1 patch Q24H TDERMAL 12/04/19 12:30 01/03/20 12:29 12/08/19 12:56 Pantoprazole (Protonix) 40 mg EVERY 12 HOURS ORAL 12/05/19 21:00 01/04/20 20:59 12/09/19 08:28 Tamsulosin HCl (Flomax) 0.4 mg BID ORAL 12/04/19 12:10 01/03/20 12:09 12/09/19 08:27 Troy Yeboah MD Dec 09, 2019 11:06
--- NOTE | 2019-12-09 11:41 | Cardiac Electrophysiology PN ---
Assessment/Plan Assessment/Plan 1. CHronic Elevated troponin. Troponin levels are flat. Likely due to renal failure creatinine of 2.6. Denies any chest pain. Continue aspirin, Plavix and metoprolol. Echo Nl EF 55% . 2. Hypertension, on Norvasc 5 mg daily and Lopressor 12.5 mg b.i.d. 3. Hypothyroidism, on Synthroid. 4. Hyperlipidemia, on Lipitor. 5. Anemia. Fu by Dr. Whyte. Also has bleeding from both nostrils 6. Renal failure due to diabetic nephropathy. Fu by Dr. Farr. 7. 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 FU ENT and Dr. Brown DW RN Subjective Subjective Confused in NAD.In Sinus 70s. lowest HR was 50s Objective Last 24 Hour Vital Signs Date Time Temp Pulse Resp B/P (MAP) Pulse Ox O2 Delivery O2 Flow Rate FiO2 12/09/19 09:00 Room Air 12/09/19 08:28 52 160/80 12/09/19 08:27 52 160/80 12/09/19 08:00 96.7 52 19 160/80 (106) 96 12/09/19 08:00 47 12/09/19 04:00 52 12/09/19 04:00 96.8 58 19 156/76 (102) 96 12/09/19 00:00 97.5 63 18 148/72 (97) 96 12/09/19 00:00 62 12/08/19 21:55 66 155/79 12/08/19 21:00 Room Air 12/08/19 20:00 96.8 58 18 155/79 (104) 96 12/08/19 20:00 52 12/08/19 16:00 48 12/08/19 15:55 97.2 49 20 145/62 (89) 97 12/08/19 12:56 150/61 12/08/19 12:00 53 12/08/19 12:00 98.2 49 20 150/61 (90) 96 Intake and Output 12/08/19 12/09/19 19:00 07:00 Intake Total 270 ml 200 ml Output Total 800 ml Balance -530 ml 200 ml Intake Oral 270 ml 200 ml Output Urine Total 800 ml # Voids 1 2 # Bowel Movements 3 2 Laboratory Tests Test 12/09/19 09:45 White Blood Count 8.0 K/UL (4.8-10.8) Red Blood Count 3.44 M/UL (4.70-6.10) L Hemoglobin 10.5 G/DL (14.2-18.0) L Hematocrit 31.4 % (42.0-52.0) L Mean Corpuscular Volume 91 FL (80-99) Mean Corpuscular Hemoglobin 30.7 PG (27.0-31.0) Mean Corpuscular Hemoglobin Concent 33.6 G/DL (32.0-36.0) Red Cell Distribution Width 14.6 % (11.6-14.8) Platelet Count 259 K/UL (150-450) Mean Platelet Volume 6.5 FL (6.5-10.1) Neutrophils (%) (Auto) 68.0 % (45.0-75.0) Lymphocytes (%) (Auto) 14.1 % (20.0-45.0) L Monocytes (%) (Auto) 7.4 % (1.0-10.0) Eosinophils (%) (Auto) 8.9 % (0.0-3.0) H Basophils (%) (Auto) 1.6 % (0.0-2.0) Sodium Level 141 MMOL/L (136-145) Potassium Level 4.1 MMOL/L (3.5-5.1) Chloride Level 107 MMOL/L (98-107) Carbon Dioxide Level 20 MMOL/L (21-32) L Anion Gap 14 mmol/L (5-15) Blood Urea Nitrogen 20 mg/dL (7-18) H Creatinine 1.9 MG/DL (0.55-1.30) H Estimat Glomerular Filtration Rate 35.9 mL/min (>60) Glucose Level 162 MG/DL (74-106) H Calcium Level 8.8 MG/DL (8.5-10.1) Phosphorus Level 3.3 MG/DL (2.5-4.9) Magnesium Level 1.8 MG/DL (1.8-2.4) Total Bilirubin 0.7 MG/DL (0.2-1.0) Aspartate Amino Transf (AST/SGOT) 19 U/L (15-37) Alanine Aminotransferase (ALT/SGPT) 26 U/L (12-78) Alkaline Phosphatase 119 U/L (46-116) H C-Reactive Protein, Quantitative 1.9 mg/dL (0.00-0.90) H Pro-B-Type Natriuretic Peptide 52727 pg/mL (0-125) H Total Protein 7.4 G/DL (6.4-8.2) Albumin 3.4 G/DL (3.4-5.0) Globulin 4.0 g/dL Albumin/Globulin Ratio 0.9 (1.0-2.7) L Objective HEAD AND NECK: Showed no JVD. LUNGS: Clear. CARDIOVASCULAR: Shows regular S1 and S2 with no gallop or murmur. ABDOMEN: Soft. EXTREMITIES: Left hemiplegia. Castillo Bazan MD Dec 09, 2019 11:41
[2019-12-09 12:00] VITALS: BP 165/95
[2019-12-09] MEDS: Nitroglycerin Patch 0.4mg TDERMAL SCH (12:29)
--- NOTE | 2019-12-09 13:35 | Nephrology Progress Note ---
Assessment/Plan Problem List: (1) Renal failure (ARF), acute on chronic Assessment: Serum creatinine is lowering (2) Anemia in chronic kidney disease (CKD) (3) Diabetic nephropathy (4) Elevated troponin Assessment 1) Renal failure (ARF), acute on chronic (2) Elevated troponin, bradycardia (3) Anemia of chronic kidney disease, s/p GI Bleed on anticoagulation (4) Hypothyroid by history (5) HTN (hypertension) (6) Diabetic nephropathy, periodic of hypoglycemia in the past other diagnosis History of urinary retention h/o Hypertension h/o UTI Plan Slow hydrate Down on Lopressor orders dose due to bradycardia Change Protonix to p.o. Monitor renal parameters Keep the blood pressure and blood sugar in check Per orders Discussed with RN Subjective ROS Limited/Unobtainable: No Constitutional: Reports: malaise Objective Objective Last 24 Hour Vital Signs Date Time Temp Pulse Resp B/P (MAP) Pulse Ox O2 Delivery O2 Flow Rate FiO2 12/09/19 12:29 165/95 12/09/19 12:29 165/95 12/09/19 12:00 96.8 67 20 165/95 (118) 97 12/09/19 12:00 63 12/09/19 09:00 Room Air 12/09/19 08:28 52 160/80 12/09/19 08:27 52 160/80 12/09/19 08:00 96.7 52 19 160/80 (106) 96 12/09/19 08:00 47 12/09/19 04:00 52 12/09/19 04:00 96.8 58 19 156/76 (102) 96 12/09/19 00:00 97.5 63 18 148/72 (97) 96 12/09/19 00:00 62 12/08/19 21:55 66 155/79 12/08/19 21:00 Room Air 12/08/19 20:00 96.8 58 18 155/79 (104) 96 12/08/19 20:00 52 12/08/19 16:00 48 12/08/19 15:55 97.2 49 20 145/62 (89) 97 Intake and Output 12/08/19 12/09/19 19:00 07:00 Intake Total 270 ml 200 ml Output Total 800 ml Balance -530 ml 200 ml Intake Oral 270 ml 200 ml Output Urine Total 800 ml # Voids 1 2 # Bowel Movements 3 2 Laboratory Tests 12/09/19 09:45: White Blood Count 8.0, Red Blood Count 3.44L, Hemoglobin 10.5L, Hematocrit 31.4L , Mean Corpuscular Volume 91, Mean Corpuscular Hemoglobin 30.7, Mean Corpuscular Hemoglobin Concent 33.6, Red Cell Distribution Width 14.6, Platelet Count 259, Mean Platelet Volume 6.5, Neutrophils (%) (Auto) 68.0, Lymphocytes (% ) (Auto) 14.1L, Monocytes (%) (Auto) 7.4, Eosinophils (%) (Auto) 8.9H, Basophils (%) (Auto) 1.6, Sodium Level 141, Potassium Level 4.1, Chloride Level 107, Carbon Dioxide Level 20L, Anion Gap 14, Blood Urea Nitrogen 20H, Creatinine 1.9H, Estimat Glomerular Filtration Rate 35.9, Glucose Level 162H, Calcium Level 8.8, Phosphorus Level 3.3, Magnesium Level 1.8, Total Bilirubin 0.7, Aspartate Amino Transf (AST/SGOT) 19, Alanine Aminotransferase (ALT/SGPT) 26, Alkaline Phosphatase 119H, C-Reactive Protein, Quantitative 1.9H, Pro-B- Type Natriuretic Peptide 00937B, Total Protein 7.4, Albumin 3.4, Globulin 4.0, Albumin/Globulin Ratio 0.9L Height (Feet): 5 Height (Inches): 8.00 Weight (Pounds): 218 General Appearance: no apparent distress Cardiovascular: normal rate Respiratory/Chest: decreased breath sounds Abdomen: soft Objective No change Rafa Farr MD Dec 09, 2019 13:35
--- NOTE | 2019-12-09 13:50 | NUR ---
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
--- NOTE | 2019-12-09 13:58 | NUR ---
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 PER KANE, DR ROSE HAS NOT BEEN FEELING WELL AND WILL NOT BE SEEING ANY PATIENT'S. MESSAGE LEFT FOR DR MONK REGARDING ABOVE
[2019-12-09 16:00] VITALS: BP 150/78
--- NOTE | 2019-12-09 18:29 | Consultation ---
DATE OF CONSULTATION: 12/09/2019 ENDOCRINOLOGY CONSULTATION CONSULTING PHYSICIAN: Aureliano Estrada M.D. REFERRING PHYSICIAN: Oni Schilling M.D. REASON FOR CONSULTATION: Hypoglycemia. HISTORY OF PRESENT ILLNESS: The patient is a 64-year-old male, resident at the nursing home facility, who presented to the hospital on 12/03/2019, with uncontrolled blood pressure and nosebleed. During the hospital stay, he was noted to be hypoglycemic. Endocrinology was consulted. Yesterday, I changed the IV fluid from normal saline to D5 NS. Glucose value seems to be more stabilized. He did not require any insulin injection. Additionally, he is hypothyroid. As an outpatient, he is on levothyroxine 175 mcg, the dose of which was increased to 200 mcg after admission since the TSH was 6. PAST MEDICAL HISTORY: Anemia, hypoglycemia, chronic kidney disease, hypertension, hypothyroidism. FAMILY HISTORY: Noncontributory. SOCIAL HISTORY: Resident at the nursing home facility. No smoking, alcohol, or drug use. REVIEW OF SYSTEMS: A 12-point review of systems was performed. Pertinent positives and negatives as mentioned in the history of present illness. LABORATORY VALUES: Sodium 144, potassium 4.0, chloride 110, bicarb 21, BUN 37, creatinine 2.2, and glucose of 50. Hemoglobin A1c of 6.2. BNP of 13,946. CBC shows WBC of 6.7, hemoglobin 8.5, hematocrit 25.3, and platelets of 219,000. PHYSICAL EXAMINATION: VITAL SIGNS: Blood pressure is 156/76, heart rate 56, temperature 96.8. HEENT: Pupils are reactive to light. Sclerae anicteric. NECK: No JVD. HEART: Regular. LUNGS: Clear. ABDOMEN: Positive bowel sounds. EXTREMITIES: No clubbing, cyanosis, or edema. DIAGNOSES: 1. Diabetes. 2. Hypoglycemia. 3. Anemia. 4. Hypothyroidism. 5. Chronic kidney disease. DISCUSSION: 1. Continue D5 NS at 50 mL/hour. 2. Continue NovoLog sliding scale low dose. 3. Hypoglycemia protocol has been ordered. 4. Continue levothyroxine at 200 mcg. 5. Repeat TSH and free T4 in 3 weeks. I will follow the patient closely during hospital stay. Thank you, Dr. Schilling, for the courtesy of this consultation. Aureliano Estrada M.D. DR: CARMEN JOB#: [id number] CC: JELENA
--- NOTE | 2019-12-09 19:15 | Hematology/Onc Progress Note ---
Assessment/Plan Assessment/Plan Assessment and Recs: # Anemia due to underlying GI bleed -- patient presents with hematemesis before and now with barb --> as per GI eval, may need endoscopy as needed --> has been started on ppi --> cea recently 1.8 --> Hgb goal >7. Transfuse prn. --> Will sign consent if necessary --> Epogen not started. iron iv but hold off for now since ferritin is 133 --> Consider octreotide gtt as per gi eval --> Medications have been reviewed. On plavix --> Hgb 8.8 -->8.6-->8.7-->8.9-->7.9-->8.5-->10.5 --> prbc: 1 unit 12/06 # Coagulation defect/Bleeding, multifactorial usually related to poor PO intake versus medications, in this case related to coumadin --> administer Vitamin K if patient is bleeding or FFP if the INR is >10 --> hold off on ffp unless active procedure/bleeding, first begin with vit K 10 --> mixing study as needed --> HAVE STOPPED COUMADIN --> per cards, hold off at this time, is aware of afib hx --> okay for asa and plavix # Anemia due to folic acid deficiency/iron deficiency as well --> prior folic acid<5 --> recheck levels now 32 # FTT -- failure to thrive --> mirtazapine per gi # Ned on ckd --> as per Dr. Farr --> recs noted --> hydration as needed --> meds noted # NSTEMI hx --> per cards # c.diff hx --> now resolved # Dvt ppx on scds now --> on plavix and asa The timing of this note does not necessarily reflect the time of the patient was seen. Greatly appreciate consultation. Subjective Allergies: Coded Allergies: No Known Allergies (Unverified , 10/07/17) Subjective 12/04 no major events, labs noted, hgb remains 7.9, no bleeding at this time 12/06 on tele, prbc ordered, elevated bp, no sob 12/07 no bleeding or chills, labs noted, no night sweats 12/08 high bp, no bleeding, off abx, biop as outpatient Objective Objective Current Medications Medications (Trade) Dose Ordered Sig/Leon Route PRN Reason Start Time Stop Time Status Last Admin Dose Admin Acetaminophen (Tylenol) 500 mg Q6H PRN ORAL Mild Pain/Temp > 100.5 12/03/19 19:15 01/02/20 19:14 12/06/19 00:29 Acetaminophen (Tylenol) 650 mg Q6H PRN ORAL Pain Scale (3-5) 12/03/19 20:15 01/02/20 20:14 Amlodipine Besylate (Norvasc) 5 mg DAILY ORAL 12/04/19 09:00 01/03/20 08:59 12/09/19 08:27 Aspirin (Ecotrin) 81 mg DAILY ORAL 12/04/19 09:00 01/18/20 08:59 12/09/19 08:27 Atorvastatin Calcium (Lipitor) 40 mg BEDTIME ORAL 12/04/19 21:00 03/02/20 20:59 12/08/19 21:54 Clopidogrel Bisulfate (Plavix) 75 mg DAILY ORAL 12/04/19 09:00 01/03/20 08:59 12/09/19 08:28 Dextrose (Dextrose 50%) 25 ml Q30M PRN IV Hypoglycemia 12/08/19 13:15 03/07/20 13:14 Dextrose (Dextrose 50%) 50 ml Q30M PRN IV Hypoglycemia 12/08/19 13:15 03/07/20 13:14 Dextrose/Sodium Chloride 1,000 ml @ 50 mls/hr Q20H IV 12/08/19 13:29 01/07/20 13:28 12/09/19 08:30 Docusate Sodium (Colace) 100 mg THREE TIMES A DAY ORAL 12/04/19 09:00 01/03/20 08:59 12/09/19 17:24 Finasteride (Proscar) 5 mg DAILY ORAL 12/04/19 09:00 03/03/20 08:59 12/09/19 08:27 Hydralazine HCl (Apresoline) 25 mg Q4H PRN ORAL BP over 160 systolic 12/03/19 20:15 03/02/20 20:14 12/09/19 12:29 Insulin Aspart (NovoLOG) BEFORE MEALS AND HS SUBQ 12/08/19 16:30 03/07/20 16:29 12/09/19 17:25 Levothyroxine Sodium (Synthroid) 200 mcg ACBREAKFAST ORAL 12/04/19 06:30 01/03/20 06:29 12/09/19 05:36 Metoprolol Tartrate (Lopressor) 12.5 mg EVERY 12 HOURS ORAL 12/06/19 21:00 03/03/20 20:59 12/09/19 08:28 Mirtazapine (Remeron) 15 mg HSPRN PRN ORAL Insomnia 12/03/19 20:15 03/02/20 20:14 Nitroglycerin (Ntg) 1 patch Q24H TDERMAL 12/04/19 12:30 01/03/20 12:29 12/09/19 12:29 Pantoprazole (Protonix) 40 mg EVERY 12 HOURS ORAL 12/05/19 21:00 01/04/20 20:59 12/09/19 08:28 Tamsulosin HCl (Flomax) 0.4 mg BID ORAL 12/04/19 12:10 01/03/20 12:09 12/09/19 17:24 Last 24 Hour Vital Signs Date Time Temp Pulse Resp B/P (MAP) Pulse Ox O2 Delivery O2 Flow Rate FiO2 12/09/19 16:00 97.1 58 20 150/78 (102) 98 12/09/19 16:00 63 12/09/19 12:29 165/95 12/09/19 12:29 165/95 12/09/19 12:00 96.8 67 20 165/95 (118) 97 12/09/19 12:00 63 12/09/19 09:00 Room Air 12/09/19 08:28 52 160/80 12/09/19 08:27 52 160/80 12/09/19 08:00 96.7 52 19 160/80 (106) 96 12/09/19 08:00 47 12/09/19 04:00 52 12/09/19 04:00 96.8 58 19 156/76 (102) 96 12/09/19 00:00 97.5 63 18 148/72 (97) 96 12/09/19 00:00 62 12/08/19 21:55 66 155/79 12/08/19 21:00 Room Air 12/08/19 20:00 96.8 58 18 155/79 (104) 96 12/08/19 20:00 52 12/08/19 16:00 48 12/08/19 15:55 97.2 49 20 145/62 (89) 97 12/08/19 12:56 150/61 12/08/19 12:00 53 12/08/19 12:00 98.2 49 20 150/61 (90) 96 12/08/19 09:00 Room Air 12/08/19 08:57 55 156/88 12/08/19 08:56 55 156/88 12/08/19 08:00 97.7 55 20 156/88 (110) 95 12/08/19 08:00 55 12/08/19 04:00 98.2 60 20 150/77 (101) 95 12/08/19 04:00 58 12/08/19 00:00 52 12/07/19 23:55 97.8 58 20 150/65 (93) 95 12/07/19 21:00 Room Air 12/07/19 20:13 61 150/78 12/07/19 20:00 60 12/07/19 20:00 97.9 61 18 150/78 (102) 96 Intake and Output 12/08/19 12/09/19 19:00 07:00 Intake Total 270 ml 200 ml Output Total 800 ml Balance -530 ml 200 ml Intake Oral 270 ml 200 ml Output Urine Total 800 ml # Voids 1 2 # Bowel Movements 3 2 Labs Test 12/07/19 02:50 12/09/19 09:45 White Blood Count 6.7 K/UL (4.8-10.8) 8.0 K/UL (4.8-10.8) Red Blood Count 2.76 M/UL (4.70-6.10) 3.44 M/UL (4.70-6.10) Hemoglobin 8.5 G/DL (14.2-18.0) 10.5 G/DL (14.2-18.0) Hematocrit 25.3 % (42.0-52.0) 31.4 % (42.0-52.0) Mean Corpuscular Volume 92 FL (80-99) 91 FL (80-99) Mean Corpuscular Hemoglobin 30.6 PG (27.0-31.0) 30.7 PG (27.0-31.0) Mean Corpuscular Hemoglobin Concent 33.5 G/DL (32.0-36.0) 33.6 G/DL (32.0-36.0) Red Cell Distribution Width 14.4 % (11.6-14.8) 14.6 % (11.6-14.8) Platelet Count 219 K/UL (150-450) 259 K/UL (150-450) Mean Platelet Volume 7.0 FL (6.5-10.1) 6.5 FL (6.5-10.1) Neutrophils (%) (Auto) 63.1 % (45.0-75.0) 68.0 % (45.0-75.0) Lymphocytes (%) (Auto) 19.5 % (20.0-45.0) 14.1 % (20.0-45.0) Monocytes (%) (Auto) 9.2 % (1.0-10.0) 7.4 % (1.0-10.0) Eosinophils (%) (Auto) 7.4 % (0.0-3.0) 8.9 % (0.0-3.0) Basophils (%) (Auto) 0.8 % (0.0-2.0) 1.6 % (0.0-2.0) Sodium Level 144 MMOL/L (136-145) 141 MMOL/L (136-145) Potassium Level 4.0 MMOL/L (3.5-5.1) 4.1 MMOL/L (3.5-5.1) Chloride Level 110 MMOL/L (98-107) 107 MMOL/L (98-107) Carbon Dioxide Level 21 MMOL/L (21-32) 20 MMOL/L (21-32) Anion Gap 13 mmol/L (5-15) 14 mmol/L (5-15) Blood Urea Nitrogen 37 mg/dL (7-18) 20 mg/dL (7-18) Creatinine 2.2 MG/DL (0.55-1.30) 1.9 MG/DL (0.55-1.30) Estimat Glomerular Filtration Rate 30.3 mL/min (>60) 35.9 mL/min (>60) Glucose Level 50 MG/DL (74-106) 162 MG/DL (74-106) Uric Acid 6.9 MG/DL (2.6-7.2) Calcium Level 8.8 MG/DL (8.5-10.1) 8.8 MG/DL (8.5-10.1) Phosphorus Level 3.7 MG/DL (2.5-4.9) 3.3 MG/DL (2.5-4.9) Magnesium Level 1.7 MG/DL (1.8-2.4) 1.8 MG/DL (1.8-2.4) Total Bilirubin 0.5 MG/DL (0.2-1.0) 0.7 MG/DL (0.2-1.0) Aspartate Amino Transf (AST/SGOT) 20 U/L (15-37) 19 U/L (15-37) Alanine Aminotransferase (ALT/SGPT) 23 U/L (12-78) 26 U/L (12-78) Alkaline Phosphatase 103 U/L (46-116) 119 U/L (46-116) C-Reactive Protein, Quantitative 2.6 mg/dL (0.00-0.90) 1.9 mg/dL (0.00-0.90) Pro-B-Type Natriuretic Peptide 91337 pg/mL (0-125) 21715 pg/mL (0-125) Total Protein 6.4 G/DL (6.4-8.2) 7.4 G/DL (6.4-8.2) Albumin 3.0 G/DL (3.4-5.0) 3.4 G/DL (3.4-5.0) Globulin 3.4 g/dL 4.0 g/dL Albumin/Globulin Ratio 0.9 (1.0-2.7) 0.9 (1.0-2.7) Height (Feet): 5 Height (Inches): 8.00 Weight (Pounds): 218 Objective PE Vitals: reviewed General Appearance: NAD + chronically ill HEENT: normocephalic, atraumatic ++ biconjunctival hemorrhage Neck: non-tender, normal alignment Respiratory/Chest: nromal breath sounds bilaterally Cardiovascular/Chest: normal peripheral pulses, normal rate Abdomen: normal bowel sounds, soft, nontender Extremities: normal range of motion, Right arm skin tear, left sided weaknness NEURO: ++ left sided weakness Kleynberg,Nate L. MD Dec 09, 2019 19:15
--- NOTE | 2019-12-09 19:29 | NUR ---
HAND-OFF: Report given to Chely/RN, Patient is in stable condition. Endorsed plan of care.
--- NOTE | 2019-12-09 19:35 | NUR ---
NURSE NOTES: Received pt and report from LOU Cortes. Observed pt resting in bed with both eyes closed; arousable to voice. Pt is A/Ox3. bus monitor is in placed; pt is SB on engine monitor (HR 53). IV site intact, asymptomatic, and patent; running D5NS @ 50cc/hr. Bed is in the lowest position and locked. Call light and beside table is within reach. No signs/symptoms of acute distress noted at this time. Will continue plan of care.
[2019-12-09 20:00] VITALS: BP 122/59
[2019-12-09] MEDS: Atorvastatin 20mg tab ORAL SCH (20:44)
--- NOTE | 2019-12-09 21:04 | General Progress Note ---
Assessment/Plan Problem List: (1) Bradycardia ICD Codes: R00.1 - Bradycardia, unspecified SNOMED: 39714236 (2) CHF (congestive heart failure) ICD Codes: I50.9 - Heart failure, unspecified SNOMED: 12661172 (3) Sphenoid mass ICD Codes: J34.89 - Other specified disorders of nose and nasal sinuses SNOMED: 466760340, 6474287, 524769174 (4) ANGEL (acute kidney injury) ICD Codes: N17.9 - Acute kidney failure, unspecified SNOMED: 99108486, 4202925, 518604595 (5) Anemia ICD Codes: D64.9 - Anemia, unspecified SNOMED: 451091451 (6) Nosebleed ICD Codes: R04.0 - Epistaxis SNOMED: 481952649 (7) Diabetic nephropathy ICD Codes: E11.21 - Type 2 diabetes mellitus with diabetic nephropathy SNOMED: 836916701 (8) Anemia in chronic kidney disease (CKD) ICD Codes: N18.9 - Chronic kidney disease, unspecified; D63.1 - Anemia in chronic kidney disease SNOMED: 979067897 (9) Renal failure (ARF), acute on chronic ICD Codes: N17.9 - Acute kidney failure, unspecified; N18.9 - Chronic kidney disease, unspecified SNOMED: 777076834 Status: progressing Assessment/Plan: anemia no fever no sob no cough moniter for bleeding cri bradycardia low sugar resolved nonverbal lethargy Subjective Allergies: Coded Allergies: No Known Allergies (Unverified , 10/07/17) Objective Last 24 Hour Vital Signs Date Time Temp Pulse Resp B/P (MAP) Pulse Ox O2 Delivery O2 Flow Rate FiO2 12/09/19 20:46 66 122/59 12/09/19 20:00 97.7 66 19 122/59 (80) 97 12/09/19 16:00 97.1 58 20 150/78 (102) 98 12/09/19 16:00 63 12/09/19 12:29 165/95 12/09/19 12:29 165/95 12/09/19 12:00 96.8 67 20 165/95 (118) 97 12/09/19 12:00 63 12/09/19 09:00 Room Air 12/09/19 08:28 52 160/80 12/09/19 08:27 52 160/80 12/09/19 08:00 96.7 52 19 160/80 (106) 96 12/09/19 08:00 47 12/09/19 04:00 52 12/09/19 04:00 96.8 58 19 156/76 (102) 96 12/09/19 00:00 97.5 63 18 148/72 (97) 96 12/09/19 00:00 62 12/08/19 21:55 66 155/79 Intake and Output 12/08/19 12/09/19 19:00 07:00 Intake Total 270 ml 200 ml Output Total 800 ml Balance -530 ml 200 ml Intake Oral 270 ml 200 ml Output Urine Total 800 ml # Voids 1 2 # Bowel Movements 3 2 Laboratory Tests 12/09/19 09:45: White Blood Count 8.0, Red Blood Count 3.44L, Hemoglobin 10.5L, Hematocrit 31.4L , Mean Corpuscular Volume 91, Mean Corpuscular Hemoglobin 30.7, Mean Corpuscular Hemoglobin Concent 33.6, Red Cell Distribution Width 14.6, Platelet Count 259, Mean Platelet Volume 6.5, Neutrophils (%) (Auto) 68.0, Lymphocytes (% ) (Auto) 14.1L, Monocytes (%) (Auto) 7.4, Eosinophils (%) (Auto) 8.9H, Basophils (%) (Auto) 1.6, Sodium Level 141, Potassium Level 4.1, Chloride Level 107, Carbon Dioxide Level 20L, Anion Gap 14, Blood Urea Nitrogen 20H, Creatinine 1.9H, Estimat Glomerular Filtration Rate 35.9, Glucose Level 162H, Calcium Level 8.8, Phosphorus Level 3.3, Magnesium Level 1.8, Total Bilirubin 0.7, Aspartate Amino Transf (AST/SGOT) 19, Alanine Aminotransferase (ALT/SGPT) 26, Alkaline Phosphatase 119H, C-Reactive Protein, Quantitative 1.9H, Pro-B- Type Natriuretic Peptide 47765F, Total Protein 7.4, Albumin 3.4, Globulin 4.0, Albumin/Globulin Ratio 0.9L Height (Feet): 5 Height (Inches): 8.00 Weight (Pounds): 218 General Appearance: confused Oni Schilling MD Dec 09, 2019 21:04
[2019-12-10] VITALS: BP 141/73
[2019-12-10 04:00] VITALS: BP 150/74
[2019-12-10] MEDS: NovoLOG Insulin Flexpen SUBQ SCH ×4 (05:37→21:00)
[2019-12-10] MEDS: D5NS 1,000 ML IV SCH ×2 (05:37→18:45)
--- NOTE | 2019-12-10 07:26 | NUR ---
HAND-OFF: Report given to LOU Cifuentes. Plan of care endorsed.
--- NOTE | 2019-12-10 07:35 | NUR ---
NURSE NOTES: Received patient awake, alert, and oriented x3. On room air, No acute distress/SOB noted. Breathing unlabored and even. Able to verbalize needs. Denies pain at this time. IV on Left and right hand 22 G, Intact, IVF infusing well. Bed is in low position and locked, Bed alarm engaged, Side rails up x3, Call light within reach, Encouraged to use call light when needed. Will continue plan of care.
[2019-12-10 08:00] VITALS: BP 149/81
--- NOTE | 2019-12-10 08:06 | Hematology/Onc Progress Note ---
Assessment/Plan Assessment/Plan Assessment and Recs: # Anemia due to underlying GI bleed -- patient presents with hematemesis before and now with barb --> as per GI eval, may need endoscopy as needed --> has been started on ppi --> cea recently 1.8 --> Hgb goal >7. Transfuse prn. --> Will sign consent if necessary --> Epogen not started. iron iv but hold off for now since ferritin is 133 --> Consider octreotide gtt as per gi eval --> Medications have been reviewed. On plavix --> Hgb 8.8 -->8.6-->8.7-->8.9-->7.9-->8.5-->10.5 --> prbc: 1 unit 12/06 # Coagulation defect/Bleeding, multifactorial usually related to poor PO intake versus medications, in this case related to coumadin --> administer Vitamin K if patient is bleeding or FFP if the INR is >10 --> hold off on ffp unless active procedure/bleeding, first begin with vit K 10 --> mixing study as needed --> HAVE STOPPED COUMADIN --> per cards, hold off at this time, is aware of afib hx --> okay for asa and plavix ==> cards recs noted # Anemia due to folic acid deficiency/iron deficiency as well --> prior folic acid<5 --> recheck levels now 32 # FTT -- failure to thrive --> mirtazapine per gi # Ned on ckd --> as per Dr. Farr --> recs noted --> hydration as needed --> meds noted # NSTEMI hx --> per cards # c.diff hx --> now resolved # Dvt ppx on scds now --> on plavix and asa The timing of this note does not necessarily reflect the time of the patient was seen. Greatly appreciate consultation. Subjective Constitutional: Denies: no symptoms, chills, fever, malaise, weakness, other HEENT: Denies: no symptoms, eye pain, blurred vision, tearing, double vision, ear pain, ear discharge, nose pain, nose congestion, throat pain, throat swelling, mouth pain, mouth swelling, other Cardiovascular: Denies: no symptoms, chest pain, edema, irregular heart rate, lightheadedness, palpitations, syncope, other Respiratory: Denies: no symptoms, cough, shortness of breath, SOB with excertion, SOB at rest, sputum, wheezing, other Gastrointestinal/Abdominal: Denies: no symptoms, abdomen distended, abdominal pain, black stools, tarry stools, blood in stool, constipated, diarrhea, difficulty swallowing, nausea, poor appetite, poor fluid intake, rectal bleeding , vomiting, other Genitourinary: Denies: no symptoms, burning, discharge, frequency, flank pain, hematuria, incontinence, pain, urgency, other Neurologic/Psychiatric: Denies: no symptoms, anxiety, depressed, emotional problems, headache, numbness, paresthesia, pre-existing deficit, seizure, tingling, tremors, weakness, other Endocrine: Denies: no symptoms, excessive sweating, flushing, intolerance to cold, intolerance to heat, increased hunger, increased thirst, increased urine, unexplained weight gain, unexplained weight loss, other Allergies: Coded Allergies: No Known Allergies (Unverified , 10/07/17) Subjective 12/04 no major events, labs noted, hgb remains 7.9, no bleeding at this time 12/06 on tele, prbc ordered, elevated bp, no sob 12/07 no bleeding or chills, labs noted, no night sweats 12/08 high bp, no bleeding, off abx, biop as outpatient 12/09 labs noted, no bleeding, no f/c, no night sweats, cbc noted Objective Objective Current Medications Medications (Trade) Dose Ordered Sig/Leon Route PRN Reason Start Time Stop Time Status Last Admin Dose Admin Acetaminophen (Tylenol) 500 mg Q6H PRN ORAL Mild Pain/Temp > 100.5 12/03/19 19:15 01/02/20 19:14 12/06/19 00:29 Acetaminophen (Tylenol) 650 mg Q6H PRN ORAL Pain Scale (3-5) 12/03/19 20:15 01/02/20 20:14 Amlodipine Besylate (Norvasc) 5 mg DAILY ORAL 12/04/19 09:00 01/03/20 08:59 12/09/19 08:27 Aspirin (Ecotrin) 81 mg DAILY ORAL 12/04/19 09:00 01/18/20 08:59 12/09/19 08:27 Atorvastatin Calcium (Lipitor) 40 mg BEDTIME ORAL 12/04/19 21:00 03/02/20 20:59 12/09/19 20:44 Clopidogrel Bisulfate (Plavix) 75 mg DAILY ORAL 12/04/19 09:00 01/03/20 08:59 12/09/19 08:28 Dextrose (Dextrose 50%) 25 ml Q30M PRN IV Hypoglycemia 12/08/19 13:15 03/07/20 13:14 Dextrose (Dextrose 50%) 50 ml Q30M PRN IV Hypoglycemia 12/08/19 13:15 03/07/20 13:14 Dextrose/Sodium Chloride 1,000 ml @ 50 mls/hr Q20H IV 12/08/19 13:29 01/07/20 13:28 12/10/19 05:37 Docusate Sodium (Colace) 100 mg THREE TIMES A DAY ORAL 12/04/19 09:00 01/03/20 08:59 12/09/19 17:24 Finasteride (Proscar) 5 mg DAILY ORAL 12/04/19 09:00 03/03/20 08:59 12/09/19 08:27 Hydralazine HCl (Apresoline) 25 mg Q4H PRN ORAL BP over 160 systolic 12/03/19 20:15 03/02/20 20:14 12/09/19 12:29 Insulin Aspart (NovoLOG) BEFORE MEALS AND HS SUBQ 12/08/19 16:30 03/07/20 16:29 12/09/19 20:48 Levothyroxine Sodium (Synthroid) 200 mcg ACBREAKFAST ORAL 12/04/19 06:30 01/03/20 06:29 12/10/19 05:37 Metoprolol Tartrate (Lopressor) 12.5 mg EVERY 12 HOURS ORAL 12/06/19 21:00 03/03/20 20:59 12/09/19 20:46 Mirtazapine (Remeron) 15 mg HSPRN PRN ORAL Insomnia 12/03/19 20:15 03/02/20 20:14 Nitroglycerin (Ntg) 1 patch Q24H TDERMAL 12/04/19 12:30 01/03/20 12:29 12/09/19 12:29 Pantoprazole (Protonix) 40 mg EVERY 12 HOURS ORAL 12/05/19 21:00 01/04/20 20:59 12/09/19 20:43 Tamsulosin HCl (Flomax) 0.4 mg BID ORAL 12/04/19 12:10 01/03/20 12:09 12/09/19 17:24 Last 24 Hour Vital Signs Date Time Temp Pulse Resp B/P (MAP) Pulse Ox O2 Delivery O2 Flow Rate FiO2 12/10/19 04:00 56 12/10/19 04:00 98.1 58 17 150/74 (99) 97 12/10/19 00:00 56 12/10/19 00:00 98.1 56 17 141/73 (95) 97 12/09/19 21:00 Room Air 12/09/19 20:46 66 122/59 12/09/19 20:00 97.7 66 19 122/59 (80) 97 12/09/19 20:00 45 12/09/19 16:00 97.1 58 20 150/78 (102) 98 12/09/19 16:00 63 12/09/19 12:29 165/95 12/09/19 12:29 165/95 12/09/19 12:00 96.8 67 20 165/95 (118) 97 12/09/19 12:00 63 12/09/19 09:00 Room Air 12/09/19 08:28 52 160/80 12/09/19 08:27 52 160/80 12/09/19 08:00 96.7 52 19 160/80 (106) 96 12/09/19 08:00 47 12/09/19 04:00 52 12/09/19 04:00 96.8 58 19 156/76 (102) 96 12/09/19 00:00 97.5 63 18 148/72 (97) 96 12/09/19 00:00 62 12/08/19 21:55 66 155/79 12/08/19 21:00 Room Air 12/08/19 20:00 96.8 58 18 155/79 (104) 96 12/08/19 20:00 52 12/08/19 16:00 48 12/08/19 15:55 97.2 49 20 145/62 (89) 97 12/08/19 12:56 150/61 12/08/19 12:00 53 12/08/19 12:00 98.2 49 20 150/61 (90) 96 12/08/19 09:00 Room Air 12/08/19 08:57 55 156/88 12/08/19 08:56 55 156/88 Intake and Output 12/09/19 12/10/19 19:00 07:00 Intake Total 240 ml 160 ml Balance 240 ml 160 ml Intake Oral 240 ml 160 ml # Voids 2 # Bowel Movements 2 2 Labs Test 12/09/19 09:45 White Blood Count 8.0 K/UL (4.8-10.8) Red Blood Count 3.44 M/UL (4.70-6.10) Hemoglobin 10.5 G/DL (14.2-18.0) Hematocrit 31.4 % (42.0-52.0) Mean Corpuscular Volume 91 FL (80-99) Mean Corpuscular Hemoglobin 30.7 PG (27.0-31.0) Mean Corpuscular Hemoglobin Concent 33.6 G/DL (32.0-36.0) Red Cell Distribution Width 14.6 % (11.6-14.8) Platelet Count 259 K/UL (150-450) Mean Platelet Volume 6.5 FL (6.5-10.1) Neutrophils (%) (Auto) 68.0 % (45.0-75.0) Lymphocytes (%) (Auto) 14.1 % (20.0-45.0) Monocytes (%) (Auto) 7.4 % (1.0-10.0) Eosinophils (%) (Auto) 8.9 % (0.0-3.0) Basophils (%) (Auto) 1.6 % (0.0-2.0) Sodium Level 141 MMOL/L (136-145) Potassium Level 4.1 MMOL/L (3.5-5.1) Chloride Level 107 MMOL/L (98-107) Carbon Dioxide Level 20 MMOL/L (21-32) Anion Gap 14 mmol/L (5-15) Blood Urea Nitrogen 20 mg/dL (7-18) Creatinine 1.9 MG/DL (0.55-1.30) Estimat Glomerular Filtration Rate 35.9 mL/min (>60) Glucose Level 162 MG/DL (74-106) Calcium Level 8.8 MG/DL (8.5-10.1) Phosphorus Level 3.3 MG/DL (2.5-4.9) Magnesium Level 1.8 MG/DL (1.8-2.4) Total Bilirubin 0.7 MG/DL (0.2-1.0) Aspartate Amino Transf (AST/SGOT) 19 U/L (15-37) Alanine Aminotransferase (ALT/SGPT) 26 U/L (12-78) Alkaline Phosphatase 119 U/L (46-116) C-Reactive Protein, Quantitative 1.9 mg/dL (0.00-0.90) Pro-B-Type Natriuretic Peptide 65736 pg/mL (0-125) Total Protein 7.4 G/DL (6.4-8.2) Albumin 3.4 G/DL (3.4-5.0) Globulin 4.0 g/dL Albumin/Globulin Ratio 0.9 (1.0-2.7) Height (Feet): 5 Height (Inches): 8.00 Weight (Pounds): 206 Objective PE Vitals: reviewed General Appearance: NAD + chronically ill HEENT: normocephalic, atraumatic ++ biconjunctival hemorrhage Neck: non-tender, normal alignment Respiratory/Chest: nromal breath sounds bilaterally Cardiovascular/Chest: normal peripheral pulses, normal rate Abdomen: normal bowel sounds, soft, nontender Extremities: normal range of motion, Right arm skin tear, left sided weaknness NEURO: ++ left sided weakness Nate Whyte MD Dec 10, 2019 08:06
--- NOTE | 2019-12-10 08:29 | General Progress Note ---
Assessment/Plan Problem List: (1) Hypoglycemia ICD Codes: E16.2 - Hypoglycemia, unspecified SNOMED: 602787716 (2) Hypothyroid ICD Codes: E03.9 - Hypothyroidism, unspecified SNOMED: 27830741 (3) HTN (hypertension) ICD Codes: I10 - Essential (primary) hypertension SNOMED: 05552160 (4) CHF (congestive heart failure) ICD Codes: I50.9 - Heart failure, unspecified SNOMED: 87693153 (5) ANGEL (acute kidney injury) ICD Codes: N17.9 - Acute kidney failure, unspecified SNOMED: 41726634, 2744107, 797665485 (6) Diabetic nephropathy ICD Codes: E11.21 - Type 2 diabetes mellitus with diabetic nephropathy SNOMED: 674106185 Status: progressing Assessment/Plan: glucose values are stable without hypoglycemia continue D5NS at 50 continue glucose monitoring hypoglycemia protocol in order continue LT4 200 mcg daily Subjective Allergies: Coded Allergies: No Known Allergies (Unverified , 10/07/17) All Systems: reviewed and negative except above Subjective events noted interval notes reviewed glucose values are stable without hypoglycemia Item Value Date Time Bedside Blood Glucose 139 mg/dl H 12/10/19 0630 Bedside Blood Glucose 188 mg/dl H 12/09/19 2100 Bedside Blood Glucose 179 mg/dl H 12/09/19 1725 Bedside Blood Glucose 130 mg/dl H 12/09/19 1130 Bedside Blood Glucose 139 mg/dl H 12/09/19 0630 Objective Last 24 Hour Vital Signs Date Time Temp Pulse Resp B/P (MAP) Pulse Ox O2 Delivery O2 Flow Rate FiO2 12/10/19 04:00 56 12/10/19 04:00 98.1 58 17 150/74 (99) 97 12/10/19 00:00 56 12/10/19 00:00 98.1 56 17 141/73 (95) 97 12/09/19 21:00 Room Air 12/09/19 20:46 66 122/59 12/09/19 20:00 97.7 66 19 122/59 (80) 97 12/09/19 20:00 45 12/09/19 16:00 97.1 58 20 150/78 (102) 98 12/09/19 16:00 63 12/09/19 12:29 165/95 12/09/19 12:29 165/95 12/09/19 12:00 96.8 67 20 165/95 (118) 97 12/09/19 12:00 63 12/09/19 09:00 Room Air 12/09/19 08:28 52 160/80 12/09/19 08:27 52 160/80 Intake and Output 12/09/19 12/10/19 19:00 07:00 Intake Total 240 ml 160 ml Balance 240 ml 160 ml Intake Oral 240 ml 160 ml # Voids 2 # Bowel Movements 2 2 Laboratory Tests 12/09/19 09:45: White Blood Count 8.0, Red Blood Count 3.44L, Hemoglobin 10.5L, Hematocrit 31.4L , Mean Corpuscular Volume 91, Mean Corpuscular Hemoglobin 30.7, Mean Corpuscular Hemoglobin Concent 33.6, Red Cell Distribution Width 14.6, Platelet Count 259, Mean Platelet Volume 6.5, Neutrophils (%) (Auto) 68.0, Lymphocytes (% ) (Auto) 14.1L, Monocytes (%) (Auto) 7.4, Eosinophils (%) (Auto) 8.9H, Basophils (%) (Auto) 1.6, Sodium Level 141, Potassium Level 4.1, Chloride Level 107, Carbon Dioxide Level 20L, Anion Gap 14, Blood Urea Nitrogen 20H, Creatinine 1.9H, Estimat Glomerular Filtration Rate 35.9, Glucose Level 162H, Calcium Level 8.8, Phosphorus Level 3.3, Magnesium Level 1.8, Total Bilirubin 0.7, Aspartate Amino Transf (AST/SGOT) 19, Alanine Aminotransferase (ALT/SGPT) 26, Alkaline Phosphatase 119H, C-Reactive Protein, Quantitative 1.9H, Pro-B- Type Natriuretic Peptide 27942O, Total Protein 7.4, Albumin 3.4, Globulin 4.0, Albumin/Globulin Ratio 0.9L Height (Feet): 5 Height (Inches): 8.00 Weight (Pounds): 206 General Appearance: no apparent distress Neck: normal alignment Cardiovascular: normal rate Abdomen: normal bowel sounds Pelvis: normal external exam Objective Current Medications Medications (Trade) Dose Ordered Sig/Leon Route PRN Reason Start Time Stop Time Status Last Admin Dose Admin Acetaminophen (Tylenol) 500 mg Q6H PRN ORAL Mild Pain/Temp > 100.5 12/03/19 19:15 01/02/20 19:14 12/06/19 00:29 Acetaminophen (Tylenol) 650 mg Q6H PRN ORAL Pain Scale (3-5) 12/03/19 20:15 01/02/20 20:14 Amlodipine Besylate (Norvasc) 5 mg DAILY ORAL 12/04/19 09:00 01/03/20 08:59 12/09/19 08:27 Aspirin (Ecotrin) 81 mg DAILY ORAL 12/04/19 09:00 01/18/20 08:59 12/09/19 08:27 Atorvastatin Calcium (Lipitor) 40 mg BEDTIME ORAL 12/04/19 21:00 03/02/20 20:59 12/09/19 20:44 Clopidogrel Bisulfate (Plavix) 75 mg DAILY ORAL 12/04/19 09:00 01/03/20 08:59 12/09/19 08:28 Dextrose (Dextrose 50%) 25 ml Q30M PRN IV Hypoglycemia 12/08/19 13:15 03/07/20 13:14 Dextrose (Dextrose 50%) 50 ml Q30M PRN IV Hypoglycemia 12/08/19 13:15 03/07/20 13:14 Dextrose/Sodium Chloride 1,000 ml @ 50 mls/hr Q20H IV 12/08/19 13:29 01/07/20 13:28 12/10/19 05:37 Docusate Sodium (Colace) 100 mg THREE TIMES A DAY ORAL 12/04/19 09:00 01/03/20 08:59 12/09/19 17:24 Finasteride (Proscar) 5 mg DAILY ORAL 12/04/19 09:00 03/03/20 08:59 12/09/19 08:27 Hydralazine HCl (Apresoline) 25 mg Q4H PRN ORAL BP over 160 systolic 12/03/19 20:15 03/02/20 20:14 12/09/19 12:29 Insulin Aspart (NovoLOG) BEFORE MEALS AND HS SUBQ 12/08/19 16:30 03/07/20 16:29 12/09/19 20:48 Levothyroxine Sodium (Synthroid) 200 mcg ACBREAKFAST ORAL 12/04/19 06:30 01/03/20 06:29 12/10/19 05:37 Metoprolol Tartrate (Lopressor) 12.5 mg EVERY 12 HOURS ORAL 12/06/19 21:00 03/03/20 20:59 12/09/19 20:46 Mirtazapine (Remeron) 15 mg HSPRN PRN ORAL Insomnia 12/03/19 20:15 03/02/20 20:14 Nitroglycerin (Ntg) 1 patch Q24H TDERMAL 12/04/19 12:30 01/03/20 12:29 12/09/19 12:29 Pantoprazole (Protonix) 40 mg EVERY 12 HOURS ORAL 12/05/19 21:00 01/04/20 20:59 12/09/19 20:43 Tamsulosin HCl (Flomax) 0.4 mg BID ORAL 12/04/19 12:10 01/03/20 12:09 12/09/19 17:24 Aureliano Estrada MD Dec 10, 2019 08:29
[2019-12-10] MEDS: Aspirin EC 81mg tab ORAL SCH (08:37)
[2019-12-10] MEDS: Tamsulosin 0.4mg cap ORAL SCH ×2 (08:37→18:45)
[2019-12-10] MEDS: Docusate 100mg cap ORAL SCH ×3 (08:39→18:45)
--- NOTE | 2019-12-10 10:58 | Infectious Diseases Prog Note ---
Assessment/Plan Assessment/Plan IMPRESSION: 1. Sphenoid mass with nasal bleeding. 2. Acute renal failure. 3. Chronic kidney disease. 4. Diabetes mellitus type 2. 5. Hypertension. 6. History of CVA. 7. Hypothyroidism. 8. BPH. RECOMMENDATION: Observe off antibiotic Needs biopsy from sinus likely as outpatient Subjective ROS Limited/Unobtainable: No Constitutional: Reports: no symptoms Respiratory: Reports: no symptoms Gastrointestinal/Abdominal: Reports: no symptoms Genitourinary: Reports: no symptoms Allergies: Coded Allergies: No Known Allergies (Unverified , 10/07/17) Objective Vital Signs Last 24 Hour Vital Signs Date Time Temp Pulse Resp B/P (MAP) Pulse Ox O2 Delivery O2 Flow Rate FiO2 12/10/19 09:57 Room Air 12/10/19 09:11 47 12/10/19 08:39 53 149/81 12/10/19 08:38 53 149/81 12/10/19 08:00 98.3 53 19 149/81 (103) 95 12/10/19 04:00 56 12/10/19 04:00 98.1 58 17 150/74 (99) 97 12/10/19 00:00 56 12/10/19 00:00 98.1 56 17 141/73 (95) 97 12/09/19 21:00 Room Air 12/09/19 20:46 66 122/59 12/09/19 20:00 97.7 66 19 122/59 (80) 97 12/09/19 20:00 45 12/09/19 16:00 97.1 58 20 150/78 (102) 98 12/09/19 16:00 63 12/09/19 12:29 165/95 12/09/19 12:29 165/95 12/09/19 12:00 96.8 67 20 165/95 (118) 97 12/09/19 12:00 63 Height (Feet): 5 Height (Inches): 8.00 Weight (Pounds): 206 General Appearance: no acute distress HEENT: mucous membranes moist Respiratory/Chest: lungs clear Cardiovascular: bradycardia Abdomen: soft, non tender Extremities: other - toes amputation Neurologic/Psychiatric: alert, responsive Current Medications Medications (Trade) Dose Ordered Sig/Leon Route PRN Reason Start Time Stop Time Status Last Admin Dose Admin Acetaminophen (Tylenol) 500 mg Q6H PRN ORAL Mild Pain/Temp > 100.5 12/03/19 19:15 01/02/20 19:14 12/06/19 00:29 Acetaminophen (Tylenol) 650 mg Q6H PRN ORAL Pain Scale (3-5) 12/03/19 20:15 01/02/20 20:14 Amlodipine Besylate (Norvasc) 5 mg DAILY ORAL 12/04/19 09:00 01/03/20 08:59 12/10/19 08:39 Aspirin (Ecotrin) 81 mg DAILY ORAL 12/04/19 09:00 01/18/20 08:59 12/10/19 08:37 Atorvastatin Calcium (Lipitor) 40 mg BEDTIME ORAL 12/04/19 21:00 03/02/20 20:59 12/09/19 20:44 Clopidogrel Bisulfate (Plavix) 75 mg DAILY ORAL 12/04/19 09:00 01/03/20 08:59 12/10/19 08:39 Dextrose (Dextrose 50%) 25 ml Q30M PRN IV Hypoglycemia 12/08/19 13:15 03/07/20 13:14 Dextrose (Dextrose 50%) 50 ml Q30M PRN IV Hypoglycemia 12/08/19 13:15 03/07/20 13:14 Dextrose/Sodium Chloride 1,000 ml @ 50 mls/hr Q20H IV 12/08/19 13:29 01/07/20 13:28 12/10/19 05:37 Docusate Sodium (Colace) 100 mg THREE TIMES A DAY ORAL 12/04/19 09:00 01/03/20 08:59 12/10/19 08:39 Finasteride (Proscar) 5 mg DAILY ORAL 12/04/19 09:00 03/03/20 08:59 12/10/19 08:39 Hydralazine HCl (Apresoline) 25 mg Q4H PRN ORAL BP over 160 systolic 12/03/19 20:15 03/02/20 20:14 12/09/19 12:29 Insulin Aspart (NovoLOG) BEFORE MEALS AND HS SUBQ 12/08/19 16:30 03/07/20 16:29 12/09/19 20:48 Levothyroxine Sodium (Synthroid) 200 mcg ACBREAKFAST ORAL 12/04/19 06:30 01/03/20 06:29 12/10/19 05:37 Metoprolol Tartrate (Lopressor) 12.5 mg EVERY 12 HOURS ORAL 12/06/19 21:00 03/03/20 20:59 12/09/19 20:46 Mirtazapine (Remeron) 15 mg HSPRN PRN ORAL Insomnia 12/03/19 20:15 03/02/20 20:14 Nitroglycerin (Ntg) 1 patch Q24H TDERMAL 12/04/19 12:30 01/03/20 12:29 12/09/19 12:29 Pantoprazole (Protonix) 40 mg EVERY 12 HOURS ORAL 12/05/19 21:00 01/04/20 20:59 12/10/19 08:39 Tamsulosin HCl (Flomax) 0.4 mg BID ORAL 12/04/19 12:10 01/03/20 12:09 12/10/19 08:37 Troy Yeboah MD Dec 10, 2019 10:58
[2019-12-10 11:48] VITALS: BP 138/71
[2019-12-10] MEDS: Nitroglycerin Patch 0.4mg TDERMAL SCH (12:21)
--- NOTE | 2019-12-10 13:05 | NUR ---
*-* INSURANCE *-* ALL CLINICALS AND REVIEWS HAVE BEEN FAXED TO: [facility] NO REF# PH: [phone] FAX: [phone]
--- NOTE | 2019-12-10 13:51 | NUR ---
CASE MANAGEMENT:REVIEW 12/10/19 SI: SPHENOID MASS W/NASAL BLEEDING AC/CHR RENAL FAILURE 97.9 61 20 138/71 97% ON RA IS: IVF@50/HR LOPRESSOR PO Q12 PROTONIX PO Q12 LIPITOR PO QHS FLOMAX PO BID ASA PO QD PLAVIX PO QD NORVASC PO QD SYNTHROID PO QAM : TELEMETRY STATUS DCP: FROM [facility]: OBSERVE OFF ANTIBIOTICS NEEDS SINUS BIOPSY PER DR MONK, PATIENT IS STILL UNSAFE TO DISCHARGE TO SNF BUT IS APPROPRIATE FOR LOWER LEVEL OF CARE ON MED/SURG UNIT
--- NOTE | 2019-12-10 13:56 | Cardiac Electrophysiology PN ---
Assessment/Plan Assessment/Plan 1. Chronic Elevated troponin. Troponin levels are flat. Likely due to renal failure creatinine of 2.6. Denies any chest pain. Continue aspirin, Plavix and metoprolol. Echo Nl EF 55% . 2. Hypertension, on Norvasc 5 mg daily and Lopressor 12.5 mg b.i.d. 3. Hypothyroidism, on Synthroid. 4. Hyperlipidemia, on Lipitor. 5. Anemia. Fu by Dr. Whyte. Also has bleeding from both nostrils 6. Renal failure due to diabetic nephropathy. Fu by Dr. Farr. 7. Large expansile sphenoid sinus mass. FU ENT and Dr. Brown DW RN Subjective Subjective Confused in NAD.In Sinus 70s. Objective Last 24 Hour Vital Signs Date Time Temp Pulse Resp B/P (MAP) Pulse Ox O2 Delivery O2 Flow Rate FiO2 12/10/19 13:12 61 12/10/19 12:21 138/71 12/10/19 11:48 97.9 53 20 138/71 (93) 97 12/10/19 09:57 Room Air 12/10/19 09:11 47 12/10/19 08:39 53 149/81 12/10/19 08:38 53 149/81 12/10/19 08:00 98.3 53 19 149/81 (103) 95 12/10/19 04:00 56 12/10/19 04:00 98.1 58 17 150/74 (99) 97 12/10/19 00:00 56 12/10/19 00:00 98.1 56 17 141/73 (95) 97 12/09/19 21:00 Room Air 12/09/19 20:46 66 122/59 12/09/19 20:00 97.7 66 19 122/59 (80) 97 12/09/19 20:00 45 12/09/19 16:00 97.1 58 20 150/78 (102) 98 12/09/19 16:00 63 Intake and Output 12/09/19 12/10/19 19:00 07:00 Intake Total 240 ml 160 ml Balance 240 ml 160 ml Intake Oral 240 ml 160 ml # Voids 2 # Bowel Movements 2 2 Objective HEAD AND NECK: Showed no JVD. LUNGS: Clear. CARDIOVASCULAR: Shows regular S1 and S2 with no gallop or murmur. ABDOMEN: Soft. EXTREMITIES: Left hemiplegia. Castillo Bazan MD Dec 10, 2019 13:56
--- NOTE | 2019-12-10 14:02 | NUR ---
DISCHARGE PLANNING DISCUSSED DISCHARGE TO SNF TODAY COLTEN MONK PER DR MONK PATIENT REMAINS UNSAFE TO DISCHARGE AT THIS TIME BUT CAN BE MOVED TO LOWER LEVEL OF CARE ORDER ENTERED FOR MED/SURG
--- NOTE | 2019-12-10 14:15 | Nephrology Progress Note ---
Assessment/Plan Problem List: (1) Renal failure (ARF), acute on chronic Assessment: Serum creatinine is lowering (2) Anemia in chronic kidney disease (CKD) (3) Diabetic nephropathy (4) Elevated troponin Assessment 1) Renal failure (ARF), acute on chronic (2) Elevated troponin, bradycardia (3) Anemia of chronic kidney disease, s/p GI Bleed on anticoagulation (4) Hypothyroid by history (5) HTN (hypertension) (6) Diabetic nephropathy, periodic of hypoglycemia in the past other diagnosis History of urinary retention h/o Hypertension h/o UTI Plan No blood work for today Slow hydrate Stop Lopressor order due to bradycardia Change Protonix to p.o. Monitor renal parameters Keep the blood pressure and blood sugar in check Per orders Discussed with RN Subjective ROS Limited/Unobtainable: No Constitutional: Reports: malaise Objective Objective Last 24 Hour Vital Signs Date Time Temp Pulse Resp B/P (MAP) Pulse Ox O2 Delivery O2 Flow Rate FiO2 12/10/19 13:12 61 12/10/19 12:21 138/71 12/10/19 11:48 97.9 53 20 138/71 (93) 97 12/10/19 09:57 Room Air 12/10/19 09:11 47 12/10/19 08:39 53 149/81 12/10/19 08:38 53 149/81 12/10/19 08:00 98.3 53 19 149/81 (103) 95 12/10/19 04:00 56 12/10/19 04:00 98.1 58 17 150/74 (99) 97 12/10/19 00:00 56 12/10/19 00:00 98.1 56 17 141/73 (95) 97 12/09/19 21:00 Room Air 12/09/19 20:46 66 122/59 12/09/19 20:00 97.7 66 19 122/59 (80) 97 12/09/19 20:00 45 12/09/19 16:00 97.1 58 20 150/78 (102) 98 12/09/19 16:00 63 Intake and Output 12/09/19 12/10/19 19:00 07:00 Intake Total 240 ml 160 ml Balance 240 ml 160 ml Intake Oral 240 ml 160 ml # Voids 2 # Bowel Movements 2 2 Height (Feet): 5 Height (Inches): 8.00 Weight (Pounds): 206 General Appearance: no apparent distress Cardiovascular: bradycardia Respiratory/Chest: decreased breath sounds Abdomen: soft Objective No change Rafa Farr MD Dec 10, 2019 14:15
--- NOTE | 2019-12-10 15:25 | NUR ---
NURSE NOTES: Patient brought to unit in hospital bed. Bedside report done with Vane BLAKE. Patient is awake and alert x 3. Patient noted to be on room air. Denies shortness of breath. Denies chest pain. Patient has no complaints at this time. Patients skin noted to be intact. Preventative Optifoam placed on sacrum and heels bilaterally. Patient noted to have right hand 22 micheline with fluids running per MD orders. Patient noted to have left hand 22 saline lock. Patient belongings reviewed. List signed. Endorsed that patient is unsteady on feet and is a fall risk. Educated patient to call when he needs to get up. Patient verbalized understanding. Bed locked, alarmed, and in lowest position. Call light in reach. Will continue to follow plan of care.
--- NOTE | 2019-12-10 15:25 | NUR ---
HAND-OFF: Report given to Uriah.
--- NOTE | 2019-12-10 15:25 | NUR ---
NURSE NOTES: transferred patient via bed to [facility], room 408-1. Denies of pain/discomfort. personal belongings noted. IV access patent and intact. No acute cardio-resp distress noted. kept bed in the lowest position. bed alarm engaged and lock. call light is within reach. will cont to monitor.
[2019-12-10 16:00] VITALS: BP 121/68
--- NOTE | 2019-12-10 16:09 | NUR ---
NOTES (SWALLOW EVAL): REFERRED FOR SWALLOW EVAL BY DR MONK, SEE FULL REPORT IN CARE ACTIVITY SECTION AND TO FOLLOW. DYSPHAGIA RISK FACTORS FOR THIS 64 Y.O. SAMI AND CZECH-SPEAKING MALE: ACUTE ISSUES: ANEMIA, NOSEBLEED, INCREASED TROPONIN, LUNGS ARE CLEAR, SIGNIFICANT VITAL SIGNS RESP RATE 20 AND SP02 97 BUT BP HIGH. 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 PER POLST OK TO HAVE TUBE FEEDINGS IF NEEDS. AT [facility] ON 10/24/19, HE HAD A SWALLOW EVAL AND DID NOT HAVE ANY SIGNIFICANT DYSPHAGIA. HE WAS PLACED ON A MECH SOFT CHOPPED DIET AND THIN LIQUIDS AT THAT TIME. INTAKE WAS NOT GOOD IN THE SNF BECAUSE HE DISLIKED THE FOOD AT THE SNF. HIS FAMILY WOULD BRING HIM FOOD WHICH MADE HIS BLOOD SUGAR GO DOWN. AT THE SNF, HE WAS ON A NCS, AMADA, AND LACTOSE FREE MECH SOFT CHOPPED DIET AND THIN LIQUIDS WITH NEPHROVITE. NOW HE IS ON A REGULAR TYPE DIET PUREED AND THIN LIQUIDS. INTAKE IS POOR OR HE WOULD REFUSE PUREED (DISLIKES) MOST OF THE TIME BUT ONE TIME IT WAS 50%. ALERT BUT SPEAKING IN SENTENCES IN [place] TO WITH HIS EYES CLOSED. HE DENIES ANY SWALLOWING PROBLEMS. HAS FULL UPPER DENTURES AND PERMANENT LOWER TEETH. 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 INITIAL IMPRESSIONS: GROSSLY FUNCTIONAL SWALLOW WITH THIN LIQUIDS VIA STRAW SEQUENTIAL SIP, PUREED TSP, AND MASTICATED SOLIDS. NO OVERT ASPIRATION. HAS SILENT ASPIRATION RISK DUE TO H/O CVA (BUT LUNGS ARE CLEAR) POOR INTAKE DUE TO DISLIKE OF PUREED AND HAS FOOD PREFERENCES. RECOMMENDATIONS: UPGRADE DIET TO MECH SOFT CHOPPED DIET AND CONTINUE WITH THIN LIQUIDS USING POSTED ASPIRATION AND REFLUX PRECAUTIONS. SEND GLUCERNA TID AND LIBERALIZE DIET PER RD. SEND SUSTAINABLE DEVELOPMENT POLICY ANALYST FOR FOODS OF PREFERENCE. WILL ADD LACTOSE FREE FOR NOW. WILL F/UP X ONE DURING MEAL OBSERVATION. QUESTIONABLE NEED FOR MOD BARIUM SWALLOW STUDY AT THIS TIME SINCE LUNGS ARE CLEAR AND NO PNA SEEN IN MEDICAL RECORD. EDUCATED/TRAINED RN BULMARO REGARDING FOOD PREFERENCES.
[2019-12-10] MEDS ORDERED: Acetaminophen 500mg (ES) tab ORAL PRN (19:15)
[2019-12-10] MEDS ORDERED: HydrALAZINE 25mg tab ORAL PRN (19:21)
--- NOTE | 2019-12-10 19:33 | NUR ---
HAND-OFF: Report given to Jesus BLAKE.
[2019-12-10 20:00] VITALS: BP 138/64
--- NOTE | 2019-12-10 20:10 | NUR ---
NURSE NOTES: Pt is in bed, awake and alert. No acute distress noted. Vitas stable.Pt will be repositioned frequently. Bed locked low in position,side rails up and call light within reach. Pt instructed to call for assistance before getting out of bed. Pt will be monitored.
[2019-12-10] MEDS ORDERED: Atorvastatin 20mg tab ORAL SCH (21:00)
--- NOTE | 2019-12-10 22:00 | NUR ---
NURSE NOTES: Pt had a BM, pt was cleaned and bed linen was changed.
[2019-12-11] VITALS: BP 144/68
--- NOTE | 2019-12-11 00:45 | Progress Note ---
DATE: 12/10/2019 SUBJECTIVE: The patient is currently still confused. The patient also has hyperlipidemia, hypothyroidism, hypertension, and chronically elevated troponin, could be due to the renal failure. The patient's blood pressures are on the high side. The patient also has a large expansile sphenoid mass. I have asked Dr. Nair to see this patient and Dr. Nair is needs to be done in a tertiary hospital. We are not equipped at [facility] to handle this mass. Dr. Nair is aware and I have already consulted him and that was his response. The patient also has diabetes and history of CVA and BPH. The patient is off antibiotics, monitoring for azotemia as well as mental status changes. The patient also had episodes of hypoglycemia that is improving. We will monitor very closely the vital signs as well. Oni Schilling M.D. DR: Gladis JOB#: [id number] CC:
[2019-12-11] MEDS: D5NS 1,000 ML IV SCH (03:34)
[2019-12-11 04:00] VITALS: BP 151/73
--- NOTE | 2019-12-11 04:23 | NUR ---
NURSE NOTES: Pt is asleep. No acute distress noted. Pt refused to have IV site relocated.
[2019-12-11] MEDS: NovoLOG Insulin Flexpen SUBQ SCH ×2 (06:07→11:30)
[2019-12-11 06:19] LABS: BASOPHILS % (AUTO) 0.9 % (0.0-2.0); HEMATOCRIT 28.4 % (42.0-52.0); HEMOGLOBIN 9.6 G/DL (14.2-18.0); LYMPHOCYTES % (AUTO) 19.7 % (20.0-45.0); MEAN CORPUSCULAR VOLUME 92 FL (80-99); MONOCYTES % (AUTO) 7.7 % (1.0-10.0); NEUTROPHILS % (AUTO) 63.7 % (45.0-75.0); PLATELET COUNT 219 K/UL (150-450); RED BLOOD COUNT 3.09 M/UL (4.70-6.10); RED CELL DISTRIBUTION WIDTH 15.3 % (11.6-14.8); WHITE BLOOD COUNT 6.8 K/UL (4.8-10.8)
[2019-12-11 06:46] LABS: ALANINE AMINOTRANSFERASE 20 U/L (12-78); ALBUMIN 2.9 G/DL (3.4-5.0); ALBUMIN/GLOBULIN RATIO 0.8 (1.0-2.7); ALKALINE PHOSPHATASE 101 U/L (46-116); ANION GAP 12 mmol/L (5-15); ASPARTATE AMINO TRANSFERASE 15 U/L (15-37); BILIRUBIN,TOTAL 0.4 MG/DL (0.2-1.0); CALCIUM 8.3 MG/DL (8.5-10.1); CARBON DIOXIDE 23 MMOL/L (21-32); CHLORIDE 112 MMOL/L (98-107); CREATININE 1.9 MG/DL (0.55-1.30); PHOSPHORUS 3.6 MG/DL (2.5-4.9); POTASSIUM 3.9 MMOL/L (3.5-5.1); SODIUM 147 MMOL/L (136-145)
[2019-12-11 06:53] LABS: BLOOD UREA NITROGEN 16 mg/dL (7-18)
--- NOTE | 2019-12-11 06:58 | General Progress Note ---
Assessment/Plan Problem List: (1) Hypoglycemia ICD Codes: E16.2 - Hypoglycemia, unspecified SNOMED: 471874569 (2) Hypothyroid ICD Codes: E03.9 - Hypothyroidism, unspecified SNOMED: 82503123 (3) HTN (hypertension) ICD Codes: I10 - Essential (primary) hypertension SNOMED: 70922062 (4) CHF (congestive heart failure) ICD Codes: I50.9 - Heart failure, unspecified SNOMED: 49285645 (5) ANGEL (acute kidney injury) ICD Codes: N17.9 - Acute kidney failure, unspecified SNOMED: 31065872, 6159777, 838111794 (6) Diabetic nephropathy ICD Codes: E11.21 - Type 2 diabetes mellitus with diabetic nephropathy SNOMED: 349466535 Status: progressing Assessment/Plan: glucose values are stable without hypoglycemia continue D5NS at 50 continue glucose monitoring hypoglycemia protocol in order continue LT4 200 mcg daily Subjective Allergies: Coded Allergies: No Known Allergies (Unverified , 10/07/17) All Systems: reviewed and negative except above Subjective events noted interval notes reviewed glucose values are stable without hypoglycemia Item Value Date Time Bedside Blood Glucose 91 mg/dl 12/11/19 0630 Bedside Blood Glucose 131 mg/dl H 12/10/19 2100 Bedside Blood Glucose 158 mg/dl H 12/10/19 1630 Bedside Blood Glucose 113 mg/dl 12/10/19 1125 Bedside Blood Glucose 139 mg/dl H 12/10/19 0630 Objective Last 24 Hour Vital Signs Date Time Temp Pulse Resp B/P (MAP) Pulse Ox O2 Delivery O2 Flow Rate FiO2 12/11/19 04:00 97.9 58 20 151/73 (99) 97 12/11/19 00:00 98.2 76 20 144/68 (93) 97 12/10/19 21:00 Room Air 12/10/19 20:00 98.1 51 18 138/64 (88) 97 12/10/19 16:00 97.8 55 18 121/68 (85) 96 12/10/19 13:12 61 12/10/19 12:21 138/71 12/10/19 11:48 97.9 53 20 138/71 (93) 97 12/10/19 09:57 Room Air 12/10/19 09:11 47 12/10/19 08:39 53 149/81 12/10/19 08:38 53 149/81 12/10/19 08:00 98.3 53 19 149/81 (103) 95 Intake and Output 12/10/19 12/11/19 19:00 07:00 Intake Total 930 ml 150 ml Balance 930 ml 150 ml Intake Oral 480 ml IV Total 450 ml 150 ml # Voids 6 # Bowel Movements 1 Laboratory Tests 12/11/19 05:35: White Blood Count 6.8, Red Blood Count 3.09L, Hemoglobin 9.6L, Hematocrit 28.4L , Mean Corpuscular Volume 92, Mean Corpuscular Hemoglobin 31.0, Mean Corpuscular Hemoglobin Concent 33.8, Red Cell Distribution Width 15.3H, Platelet Count 219, Mean Platelet Volume 6.5, Neutrophils (%) (Auto) 63.7, Lymphocytes (%) (Auto) 19.7L, Monocytes (%) (Auto) 7.7, Eosinophils (%) (Auto) 8.0H, Basophils (%) (Auto) 0.9, Sodium Level 147H, Potassium Level 3.9, Chloride Level 112H, Carbon Dioxide Level 23, Anion Gap 12, Blood Urea Nitrogen 16, Creatinine 1.9H, Estimat Glomerular Filtration Rate 35.9, Glucose Level 105 , Calcium Level 8.3L, Phosphorus Level 3.6, Magnesium Level 1.6L, Total Bilirubin 0.4, Aspartate Amino Transf (AST/SGOT) 15, Alanine Aminotransferase ( ALT/SGPT) 20, Alkaline Phosphatase 101, Total Protein 6.4, Albumin 2.9L, Globulin 3.5, Albumin/Globulin Ratio 0.8L Height (Feet): 5 Height (Inches): 8.00 Weight (Pounds): 206 General Appearance: no apparent distress Neck: normal alignment Cardiovascular: normal rate Respiratory/Chest: lungs clear Abdomen: normal bowel sounds Pelvis: normal external exam Objective Current Medications Medications (Trade) Dose Ordered Sig/Leon Route PRN Reason Start Time Stop Time Status Last Admin Dose Admin Acetaminophen (Tylenol) 500 mg Q6H PRN ORAL Mild Pain/Temp > 100.5 12/10/19 19:15 01/02/20 19:14 Acetaminophen (Tylenol) 650 mg Q6H PRN ORAL Pain Scale (3-5) 12/10/19 19:02 01/02/20 19:01 Amlodipine Besylate (Norvasc) 5 mg DAILY ORAL 12/11/19 09:00 01/03/20 08:59 Aspirin (Ecotrin) 81 mg DAILY ORAL 12/11/19 09:00 01/18/20 08:59 Atorvastatin Calcium (Lipitor) 40 mg BEDTIME ORAL 12/10/19 21:00 03/02/20 20:59 12/10/19 21:40 Clopidogrel Bisulfate (Plavix) 75 mg DAILY ORAL 12/11/19 09:00 01/03/20 08:59 Dextrose (Dextrose 50%) 25 ml Q30M PRN IV Hypoglycemia 12/10/19 19:17 03/07/20 19:16 Dextrose (Dextrose 50%) 50 ml Q30M PRN IV Hypoglycemia 12/10/19 19:15 03/07/20 13:14 Dextrose/Sodium Chloride 1,000 ml @ 50 mls/hr Q20H IV 12/10/19 18:45 01/07/20 13:28 12/11/19 03:34 Docusate Sodium (Colace) 100 mg THREE TIMES A DAY ORAL 12/11/19 09:00 01/03/20 08:59 Finasteride (Proscar) 5 mg DAILY ORAL 12/11/19 09:00 03/03/20 08:59 Hydralazine HCl (Apresoline) 25 mg Q4H PRN ORAL BP over 160 systolic 12/10/19 19:21 03/02/20 19:20 Insulin Aspart (NovoLOG) BEFORE MEALS AND HS SUBQ 12/10/19 21:00 03/07/20 16:29 12/10/19 21:00 Levothyroxine Sodium (Synthroid) 200 mcg ACBREAKFAST ORAL 12/11/19 06:30 01/03/20 06:29 12/11/19 06:06 Mirtazapine (Remeron) 15 mg HSPRN PRN ORAL Insomnia 12/10/19 21:00 03/02/20 20:59 Nitroglycerin (Ntg) 1 patch Q24H TDERMAL 12/11/19 12:30 01/03/20 12:29 Pantoprazole (Protonix) 40 mg EVERY 12 HOURS ORAL 12/10/19 21:00 01/04/20 20:59 12/10/19 21:40 Tamsulosin HCl (Flomax) 0.4 mg BID ORAL 12/11/19 09:00 01/03/20 12:09 Aureliano Estrada MD Dec 11, 2019 06:58
--- NOTE | 2019-12-11 07:20 | NUR ---
HAND-OFF: Report given to LOU Craft. Addendum: 12/11/19 at 3304 by KARON FRANCE RN RN Disregard above note; wrong patient.
--- NOTE | 2019-12-11 07:30 | NUR ---
HAND-OFF: Report given to Alin Aguiar RN.Informed Alin to reposition pt frequently to avoid skin breakdown.
[2019-12-11 08:00] VITALS: BP 139/74
[2019-12-11] MEDS: Docusate 100mg cap ORAL SCH ×2 (08:28→12:34)
[2019-12-11] MEDS ORDERED: Aspirin EC 81mg tab ORAL SCH (09:00)
[2019-12-11] MEDS ORDERED: Tamsulosin 0.4mg cap ORAL SCH (09:00)
--- NOTE | 2019-12-11 09:19 | General Progress Note ---
Assessment/Plan Problem List: (1) Bradycardia ICD Codes: R00.1 - Bradycardia, unspecified SNOMED: 14557260 (2) CHF (congestive heart failure) ICD Codes: I50.9 - Heart failure, unspecified SNOMED: 27646765 (3) Sphenoid mass ICD Codes: J34.89 - Other specified disorders of nose and nasal sinuses SNOMED: 196852837, 4965714, 635366726 (4) ANGEL (acute kidney injury) ICD Codes: N17.9 - Acute kidney failure, unspecified SNOMED: 34108547, 3583811, 406810915 (5) Anemia ICD Codes: D64.9 - Anemia, unspecified SNOMED: 305850260 (6) Nosebleed ICD Codes: R04.0 - Epistaxis SNOMED: 008054930 (7) Diabetic nephropathy ICD Codes: E11.21 - Type 2 diabetes mellitus with diabetic nephropathy SNOMED: 501690189 (8) Anemia in chronic kidney disease (CKD) ICD Codes: N18.9 - Chronic kidney disease, unspecified; D63.1 - Anemia in chronic kidney disease SNOMED: 259864459 (9) Renal failure (ARF), acute on chronic ICD Codes: N17.9 - Acute kidney failure, unspecified; N18.9 - Chronic kidney disease, unspecified SNOMED: 637381358 Status: progressing Assessment/Plan: no acute events bradycardica wrote dc back to snf i placed a call to dr bernal to get clearance from him for dc see dc summary for details Subjective ROS Limited/Unobtainable: Yes Allergies: Coded Allergies: No Known Allergies (Unverified , 10/07/17) Objective Last 24 Hour Vital Signs Date Time Temp Pulse Resp B/P (MAP) Pulse Ox O2 Delivery O2 Flow Rate FiO2 12/11/19 08:29 52 139/74 12/11/19 08:00 97.7 52 19 139/74 (95) 93 12/11/19 04:00 97.9 58 20 151/73 (99) 97 12/11/19 00:00 98.2 76 20 144/68 (93) 97 12/10/19 21:00 Room Air 12/10/19 20:00 98.1 51 18 138/64 (88) 97 12/10/19 16:00 97.8 55 18 121/68 (85) 96 12/10/19 13:12 61 12/10/19 12:21 138/71 12/10/19 11:48 97.9 53 20 138/71 (93) 97 12/10/19 09:57 Room Air Intake and Output 12/10/19 12/11/19 19:00 07:00 Intake Total 930 ml 150 ml Balance 930 ml 150 ml Intake Oral 480 ml IV Total 450 ml 150 ml # Voids 6 # Bowel Movements 1 Laboratory Tests 12/11/19 05:35: White Blood Count 6.8, Red Blood Count 3.09L, Hemoglobin 9.6L, Hematocrit 28.4L , Mean Corpuscular Volume 92, Mean Corpuscular Hemoglobin 31.0, Mean Corpuscular Hemoglobin Concent 33.8, Red Cell Distribution Width 15.3H, Platelet Count 219, Mean Platelet Volume 6.5, Neutrophils (%) (Auto) 63.7, Lymphocytes (%) (Auto) 19.7L, Monocytes (%) (Auto) 7.7, Eosinophils (%) (Auto) 8.0H, Basophils (%) (Auto) 0.9, Sodium Level 147H, Potassium Level 3.9, Chloride Level 112H, Carbon Dioxide Level 23, Anion Gap 12, Blood Urea Nitrogen 16, Creatinine 1.9H, Estimat Glomerular Filtration Rate 35.9, Glucose Level 105 , Calcium Level 8.3L, Phosphorus Level 3.6, Magnesium Level 1.6L, Total Bilirubin 0.4, Aspartate Amino Transf (AST/SGOT) 15, Alanine Aminotransferase ( ALT/SGPT) 20, Alkaline Phosphatase 101, Total Protein 6.4, Albumin 2.9L, Globulin 3.5, Albumin/Globulin Ratio 0.8L Height (Feet): 5 Height (Inches): 8.00 Weight (Pounds): 206 Oni Schilling MD Dec 11, 2019 09:19
--- NOTE | 2019-12-11 09:24 | General Progress Note ---
Assessment/Plan Problem List: (1) Bradycardia ICD Codes: R00.1 - Bradycardia, unspecified SNOMED: 25098733 (2) CHF (congestive heart failure) ICD Codes: I50.9 - Heart failure, unspecified SNOMED: 07153014 (3) Sphenoid mass ICD Codes: J34.89 - Other specified disorders of nose and nasal sinuses SNOMED: 553781969, 3248935, 647257499 (4) ANGEL (acute kidney injury) ICD Codes: N17.9 - Acute kidney failure, unspecified SNOMED: 64596324, 2605748, 386371147 (5) Anemia ICD Codes: D64.9 - Anemia, unspecified SNOMED: 906596570 (6) Nosebleed ICD Codes: R04.0 - Epistaxis SNOMED: 728601620 (7) Diabetic nephropathy ICD Codes: E11.21 - Type 2 diabetes mellitus with diabetic nephropathy SNOMED: 999158411 (8) Anemia in chronic kidney disease (CKD) ICD Codes: N18.9 - Chronic kidney disease, unspecified; D63.1 - Anemia in chronic kidney disease SNOMED: 211971699 (9) Renal failure (ARF), acute on chronic ICD Codes: N17.9 - Acute kidney failure, unspecified; N18.9 - Chronic kidney disease, unspecified SNOMED: 640476782 Status: progressing Assessment/Plan: no acute events bradycardica wrote dc back to snf i placed a call to dr bernal to get clearance from him for dc see dc summary for details Subjective ROS Limited/Unobtainable: Yes Allergies: Coded Allergies: No Known Allergies (Unverified , 10/07/17) Objective Last 24 Hour Vital Signs Date Time Temp Pulse Resp B/P (MAP) Pulse Ox O2 Delivery O2 Flow Rate FiO2 12/11/19 08:29 52 139/74 12/11/19 08:00 97.7 52 19 139/74 (95) 93 12/11/19 04:00 97.9 58 20 151/73 (99) 97 12/11/19 00:00 98.2 76 20 144/68 (93) 97 12/10/19 21:00 Room Air 12/10/19 20:00 98.1 51 18 138/64 (88) 97 12/10/19 16:00 97.8 55 18 121/68 (85) 96 12/10/19 13:12 61 12/10/19 12:21 138/71 12/10/19 11:48 97.9 53 20 138/71 (93) 97 12/10/19 09:57 Room Air Intake and Output 12/10/19 12/11/19 19:00 07:00 Intake Total 930 ml 150 ml Balance 930 ml 150 ml Intake Oral 480 ml IV Total 450 ml 150 ml # Voids 6 # Bowel Movements 1 Laboratory Tests 12/11/19 05:35: White Blood Count 6.8, Red Blood Count 3.09L, Hemoglobin 9.6L, Hematocrit 28.4L , Mean Corpuscular Volume 92, Mean Corpuscular Hemoglobin 31.0, Mean Corpuscular Hemoglobin Concent 33.8, Red Cell Distribution Width 15.3H, Platelet Count 219, Mean Platelet Volume 6.5, Neutrophils (%) (Auto) 63.7, Lymphocytes (%) (Auto) 19.7L, Monocytes (%) (Auto) 7.7, Eosinophils (%) (Auto) 8.0H, Basophils (%) (Auto) 0.9, Sodium Level 147H, Potassium Level 3.9, Chloride Level 112H, Carbon Dioxide Level 23, Anion Gap 12, Blood Urea Nitrogen 16, Creatinine 1.9H, Estimat Glomerular Filtration Rate 35.9, Glucose Level 105 , Calcium Level 8.3L, Phosphorus Level 3.6, Magnesium Level 1.6L, Total Bilirubin 0.4, Aspartate Amino Transf (AST/SGOT) 15, Alanine Aminotransferase ( ALT/SGPT) 20, Alkaline Phosphatase 101, Total Protein 6.4, Albumin 2.9L, Globulin 3.5, Albumin/Globulin Ratio 0.8L Height (Feet): 5 Height (Inches): 8.00 Weight (Pounds): 206 Oni Schilling MD Dec 11, 2019 09:24
--- NOTE | 2019-12-11 10:51 | NUR ---
DISCHARGE DISPOSITION: PLEASE READ PATIENT TO BE DISCHARGED TO [facility] [address] [facility] [address] T: [phone]>>> CALL FOR REPORT [facility] ETA 1300 CALL PLACED TO DAUGHTER LUCINDA RODRIGUEZ >> UNABLE TO LEAVE VM TRANSFER PACKET TO BE DELIVERED
--- NOTE | 2019-12-11 11:31 | NUR ---
NURSE NOTE tried call to Bety connors/mother, ConnorsChristel/Daughter for reporting discharge. both were not available at this time. Called [facility] for patient report. RN roller shop supervisor is not available at this time. will call later.
[2019-12-11 12:00] VITALS: BP 158/76
--- NOTE | 2019-12-11 12:16 | Hematology/Onc Progress Note ---
Assessment/Plan Assessment/Plan Assessment and Recs: # Anemia due to underlying GI bleed -- patient presents with hematemesis before and now with barb --> as per GI eval, may need endoscopy as needed --> has been started on ppi --> cea recently 1.8 --> Hgb goal >7. Transfuse prn. --> Will sign consent if necessary --> Epogen not started. iron iv but hold off for now since ferritin is 133 --> Consider octreotide gtt as per gi eval --> Medications have been reviewed. On plavix --> Hgb 8.8 -->8.6-->8.7-->8.9-->7.9-->8.5-->10.5-->9.6 --> prbc: 1 unit 12/06 # Coagulation defect/Bleeding, multifactorial usually related to poor PO intake versus medications, in this case related to coumadin --> administer Vitamin K if patient is bleeding or FFP if the INR is >10 --> hold off on ffp unless active procedure/bleeding, first begin with vit K 10 --> mixing study as needed --> HAVE STOPPED COUMADIN --> per cards, hold off at this time, is aware of afib hx --> okay for asa and plavix ==> cards recs noted # Anemia due to folic acid deficiency/iron deficiency as well --> prior folic acid<5 --> recheck levels now 32 # FTT -- failure to thrive --> mirtazapine per gi # Ned on ckd --> as per Dr. Farr --> recs noted --> hydration as needed --> meds noted # NSTEMI hx --> per cards # c.diff hx --> now resolved # Dvt ppx on scds now --> on plavix and asa The timing of this note does not necessarily reflect the time of the patient was seen. Greatly appreciate consultation. Subjective Constitutional: Denies: no symptoms, chills, fever, malaise, weakness, other HEENT: Denies: no symptoms, eye pain, blurred vision, tearing, double vision, ear pain, ear discharge, nose pain, nose congestion, throat pain, throat swelling, mouth pain, mouth swelling, other Cardiovascular: Denies: no symptoms, chest pain, edema, irregular heart rate, lightheadedness, palpitations, syncope, other Gastrointestinal/Abdominal: Denies: no symptoms, abdomen distended, abdominal pain, black stools, tarry stools, blood in stool, constipated, diarrhea, difficulty swallowing, nausea, poor appetite, poor fluid intake, rectal bleeding , vomiting, other Genitourinary: Denies: no symptoms, burning, discharge, frequency, flank pain, hematuria, incontinence, pain, urgency, other Neurologic/Psychiatric: Denies: no symptoms, anxiety, depressed, emotional problems, headache, numbness, paresthesia, pre-existing deficit, seizure, tingling, tremors, weakness, other Endocrine: Denies: no symptoms, excessive sweating, flushing, intolerance to cold, intolerance to heat, increased hunger, increased thirst, increased urine, unexplained weight gain, unexplained weight loss, other Hematologic/Lymphatic: Denies: no symptoms, anemia, easy bleeding, easy bruising, adenopathy, other Allergies: Coded Allergies: No Known Allergies (Unverified , 10/07/17) Subjective 12/04 no major events, labs noted, hgb remains 7.9, no bleeding at this time 12/06 on tele, prbc ordered, elevated bp, no sob 12/07 no bleeding or chills, labs noted, no night sweats 12/08 high bp, no bleeding, off abx, biop as outpatient 12/09 labs noted, no bleeding, no f/c, no night sweats, cbc noted 12/10 labs reviewed, hgb remains above 9, no night sweats Objective Objective Current Medications Medications (Trade) Dose Ordered Sig/Leon Route PRN Reason Start Time Stop Time Status Last Admin Dose Admin Acetaminophen (Tylenol) 500 mg Q6H PRN ORAL Mild Pain/Temp > 100.5 12/10/19 19:15 01/02/20 19:14 Acetaminophen (Tylenol) 650 mg Q6H PRN ORAL Pain Scale (3-5) 12/10/19 19:02 01/02/20 19:01 Amlodipine Besylate (Norvasc) 5 mg DAILY ORAL 12/11/19 09:00 01/03/20 08:59 12/11/19 08:29 Aspirin (Ecotrin) 81 mg DAILY ORAL 12/11/19 09:00 01/18/20 08:59 12/11/19 08:29 Atorvastatin Calcium (Lipitor) 40 mg BEDTIME ORAL 12/10/19 21:00 03/02/20 20:59 12/10/19 21:40 Clopidogrel Bisulfate (Plavix) 75 mg DAILY ORAL 12/11/19 09:00 01/03/20 08:59 12/11/19 08:30 Dextrose (Dextrose 50%) 25 ml Q30M PRN IV Hypoglycemia 12/10/19 19:17 03/07/20 19:16 Dextrose (Dextrose 50%) 50 ml Q30M PRN IV Hypoglycemia 12/10/19 19:15 03/07/20 13:14 Dextrose/Sodium Chloride 1,000 ml @ 50 mls/hr Q20H IV 12/10/19 18:45 01/07/20 13:28 12/11/19 03:34 Docusate Sodium (Colace) 100 mg THREE TIMES A DAY ORAL 12/11/19 09:00 01/03/20 08:59 12/11/19 08:28 Finasteride (Proscar) 5 mg DAILY ORAL 12/11/19 09:00 03/03/20 08:59 12/11/19 08:29 Hydralazine HCl (Apresoline) 25 mg Q4H PRN ORAL BP over 160 systolic 12/10/19 19:21 03/02/20 19:20 Insulin Aspart (NovoLOG) BEFORE MEALS AND HS SUBQ 12/10/19 21:00 03/07/20 16:29 12/10/19 21:00 Levothyroxine Sodium (Synthroid) 200 mcg ACBREAKFAST ORAL 12/11/19 06:30 01/03/20 06:29 12/11/19 06:06 Mirtazapine (Remeron) 15 mg HSPRN PRN ORAL Insomnia 12/10/19 21:00 03/02/20 20:59 Nitroglycerin (Ntg) 1 patch Q24H TDERMAL 12/11/19 12:30 01/03/20 12:29 Pantoprazole (Protonix) 40 mg EVERY 12 HOURS ORAL 12/10/19 21:00 01/04/20 20:59 12/11/19 08:29 Tamsulosin HCl (Flomax) 0.4 mg BID ORAL 12/11/19 09:00 01/03/20 12:09 12/11/19 08:29 Last 24 Hour Vital Signs Date Time Temp Pulse Resp B/P (MAP) Pulse Ox O2 Delivery O2 Flow Rate FiO2 12/11/19 12:00 97.8 57 18 158/76 (103) 96 12/11/19 09:00 Room Air 12/11/19 08:29 52 139/74 12/11/19 08:00 97.7 52 19 139/74 (95) 93 12/11/19 04:00 97.9 58 20 151/73 (99) 97 12/11/19 00:00 98.2 76 20 144/68 (93) 97 12/10/19 21:00 Room Air 12/10/19 20:00 98.1 51 18 138/64 (88) 97 12/10/19 16:00 97.8 55 18 121/68 (85) 96 12/10/19 13:12 61 12/10/19 12:21 138/71 12/10/19 11:48 97.9 53 20 138/71 (93) 97 12/10/19 09:57 Room Air 12/10/19 09:11 47 12/10/19 08:39 53 149/81 12/10/19 08:38 53 149/81 12/10/19 08:00 98.3 53 19 149/81 (103) 95 12/10/19 04:00 56 12/10/19 04:00 98.1 58 17 150/74 (99) 97 12/10/19 00:00 56 12/10/19 00:00 98.1 56 17 141/73 (95) 97 12/09/19 21:00 Room Air 12/09/19 20:46 66 122/59 12/09/19 20:00 97.7 66 19 122/59 (80) 97 12/09/19 20:00 45 12/09/19 16:00 97.1 58 20 150/78 (102) 98 12/09/19 16:00 63 12/09/19 12:29 165/95 12/09/19 12:29 165/95 Intake and Output 12/10/19 12/11/19 19:00 07:00 Intake Total 930 ml 150 ml Balance 930 ml 150 ml Intake Oral 480 ml IV Total 450 ml 150 ml # Voids 6 # Bowel Movements 1 Labs Test 12/09/19 09:45 12/11/19 05:35 White Blood Count 8.0 K/UL (4.8-10.8) 6.8 K/UL (4.8-10.8) Red Blood Count 3.44 M/UL (4.70-6.10) 3.09 M/UL (4.70-6.10) Hemoglobin 10.5 G/DL (14.2-18.0) 9.6 G/DL (14.2-18.0) Hematocrit 31.4 % (42.0-52.0) 28.4 % (42.0-52.0) Mean Corpuscular Volume 91 FL (80-99) 92 FL (80-99) Mean Corpuscular Hemoglobin 30.7 PG (27.0-31.0) 31.0 PG (27.0-31.0) Mean Corpuscular Hemoglobin Concent 33.6 G/DL (32.0-36.0) 33.8 G/DL (32.0-36.0) Red Cell Distribution Width 14.6 % (11.6-14.8) 15.3 % (11.6-14.8) Platelet Count 259 K/UL (150-450) 219 K/UL (150-450) Mean Platelet Volume 6.5 FL (6.5-10.1) 6.5 FL (6.5-10.1) Neutrophils (%) (Auto) 68.0 % (45.0-75.0) 63.7 % (45.0-75.0) Lymphocytes (%) (Auto) 14.1 % (20.0-45.0) 19.7 % (20.0-45.0) Monocytes (%) (Auto) 7.4 % (1.0-10.0) 7.7 % (1.0-10.0) Eosinophils (%) (Auto) 8.9 % (0.0-3.0) 8.0 % (0.0-3.0) Basophils (%) (Auto) 1.6 % (0.0-2.0) 0.9 % (0.0-2.0) Sodium Level 141 MMOL/L (136-145) 147 MMOL/L (136-145) Potassium Level 4.1 MMOL/L (3.5-5.1) 3.9 MMOL/L (3.5-5.1) Chloride Level 107 MMOL/L (98-107) 112 MMOL/L (98-107) Carbon Dioxide Level 20 MMOL/L (21-32) 23 MMOL/L (21-32) Anion Gap 14 mmol/L (5-15) 12 mmol/L (5-15) Blood Urea Nitrogen 20 mg/dL (7-18) 16 mg/dL (7-18) Creatinine 1.9 MG/DL (0.55-1.30) 1.9 MG/DL (0.55-1.30) Estimat Glomerular Filtration Rate 35.9 mL/min (>60) 35.9 mL/min (>60) Glucose Level 162 MG/DL (74-106) 105 MG/DL (74-106) Calcium Level 8.8 MG/DL (8.5-10.1) 8.3 MG/DL (8.5-10.1) Phosphorus Level 3.3 MG/DL (2.5-4.9) 3.6 MG/DL (2.5-4.9) Magnesium Level 1.8 MG/DL (1.8-2.4) 1.6 MG/DL (1.8-2.4) Total Bilirubin 0.7 MG/DL (0.2-1.0) 0.4 MG/DL (0.2-1.0) Aspartate Amino Transf (AST/SGOT) 19 U/L (15-37) 15 U/L (15-37) Alanine Aminotransferase (ALT/SGPT) 26 U/L (12-78) 20 U/L (12-78) Alkaline Phosphatase 119 U/L (46-116) 101 U/L (46-116) C-Reactive Protein, Quantitative 1.9 mg/dL (0.00-0.90) Pro-B-Type Natriuretic Peptide 19437 pg/mL (0-125) Total Protein 7.4 G/DL (6.4-8.2) 6.4 G/DL (6.4-8.2) Albumin 3.4 G/DL (3.4-5.0) 2.9 G/DL (3.4-5.0) Globulin 4.0 g/dL 3.5 g/dL Albumin/Globulin Ratio 0.9 (1.0-2.7) 0.8 (1.0-2.7) Height (Feet): 5 Height (Inches): 8.00 Weight (Pounds): 206 Objective PE Vitals: reviewed General Appearance: NAD + chronically ill HEENT: normocephalic, atraumatic ++ biconjunctival hemorrhage Neck: non-tender, normal alignment Respiratory/Chest: nromal breath sounds bilaterally Cardiovascular/Chest: normal peripheral pulses, normal rate Abdomen: normal bowel sounds, soft, nontender Extremities: normal range of motion, Right arm skin tear, left sided weaknness NEURO: ++ left sided weakness Nate Whyte MD Dec 11, 2019 12:16
--- NOTE | 2019-12-11 12:27 | Cardiac Electrophysiology PN ---
Assessment/Plan Assessment/Plan 1. Chronic Elevated troponin. Troponin levels are flat. Likely due to renal failure creatinine of 2.6. No chest pain. On aspirin, Plavix and off metoprolol for ludwig in 40s. Echo Nl EF 55%. 2. Hypertension, On Norvasc 3. Hypothyroidism, on Synthroid. 4. Hyperlipidemia, on Lipitor. 5. Anemia. Fu by Dr. Whyte. Also has bleeding from both nostrils 6. Renal failure due to diabetic nephropathy. Fu by Dr. Farr. 7. Large expansile sphenoid sinus mass. FU Dr. Brown DW RN Subjective Subjective Confused in NAD.Transferred to [facility]. Still has Left nostril bleed. Objective Last 24 Hour Vital Signs Date Time Temp Pulse Resp B/P (MAP) Pulse Ox O2 Delivery O2 Flow Rate FiO2 12/11/19 12:00 97.8 57 18 158/76 (103) 96 12/11/19 09:00 Room Air 12/11/19 08:29 52 139/74 12/11/19 08:00 97.7 52 19 139/74 (95) 93 12/11/19 04:00 97.9 58 20 151/73 (99) 97 12/11/19 00:00 98.2 76 20 144/68 (93) 97 12/10/19 21:00 Room Air 12/10/19 20:00 98.1 51 18 138/64 (88) 97 12/10/19 16:00 97.8 55 18 121/68 (85) 96 12/10/19 13:12 61 Intake and Output 12/10/19 12/11/19 19:00 07:00 Intake Total 930 ml 150 ml Balance 930 ml 150 ml Intake Oral 480 ml IV Total 450 ml 150 ml # Voids 6 # Bowel Movements 1 Laboratory Tests Test 12/11/19 05:35 White Blood Count 6.8 K/UL (4.8-10.8) Red Blood Count 3.09 M/UL (4.70-6.10) L Hemoglobin 9.6 G/DL (14.2-18.0) L Hematocrit 28.4 % (42.0-52.0) L Mean Corpuscular Volume 92 FL (80-99) Mean Corpuscular Hemoglobin 31.0 PG (27.0-31.0) Mean Corpuscular Hemoglobin Concent 33.8 G/DL (32.0-36.0) Red Cell Distribution Width 15.3 % (11.6-14.8) H Platelet Count 219 K/UL (150-450) Mean Platelet Volume 6.5 FL (6.5-10.1) Neutrophils (%) (Auto) 63.7 % (45.0-75.0) Lymphocytes (%) (Auto) 19.7 % (20.0-45.0) L Monocytes (%) (Auto) 7.7 % (1.0-10.0) Eosinophils (%) (Auto) 8.0 % (0.0-3.0) H Basophils (%) (Auto) 0.9 % (0.0-2.0) Sodium Level 147 MMOL/L (136-145) H Potassium Level 3.9 MMOL/L (3.5-5.1) Chloride Level 112 MMOL/L (98-107) H Carbon Dioxide Level 23 MMOL/L (21-32) Anion Gap 12 mmol/L (5-15) Blood Urea Nitrogen 16 mg/dL (7-18) Creatinine 1.9 MG/DL (0.55-1.30) H Estimat Glomerular Filtration Rate 35.9 mL/min (>60) Glucose Level 105 MG/DL (74-106) Calcium Level 8.3 MG/DL (8.5-10.1) L Phosphorus Level 3.6 MG/DL (2.5-4.9) Magnesium Level 1.6 MG/DL (1.8-2.4) L Total Bilirubin 0.4 MG/DL (0.2-1.0) Aspartate Amino Transf (AST/SGOT) 15 U/L (15-37) Alanine Aminotransferase (ALT/SGPT) 20 U/L (12-78) Alkaline Phosphatase 101 U/L (46-116) Total Protein 6.4 G/DL (6.4-8.2) Albumin 2.9 G/DL (3.4-5.0) L Globulin 3.5 g/dL Albumin/Globulin Ratio 0.8 (1.0-2.7) L Objective HEAD AND NECK: Showed no JVD. LUNGS: Clear. CARDIOVASCULAR: Shows regular S1 and S2 with no gallop or murmur. ABDOMEN: Soft. EXTREMITIES: Left hemiplegia. Castillo Bazan MD Dec 11, 2019 12:27
[2019-12-11] MEDS ORDERED: Nitroglycerin Patch 0.4mg TDERMAL SCH (12:30)
--- NOTE | 2019-12-11 12:30 | NUR ---
NURSE NOTES: given report to [facility]. spoke to LOU Villagomez.
[2019-12-11 12:34] VITALS: BP 158/76
--- NOTE | 2019-12-11 13:43 | Nephrology Progress Note ---
Assessment/Plan Problem List: (1) Renal failure (ARF), acute on chronic Assessment: Serum creatinine is lowering (2) Anemia in chronic kidney disease (CKD) (3) Diabetic nephropathy (4) Elevated troponin Assessment 1) Renal failure (ARF), acute on chronic (2) Elevated troponin, bradycardia (3) Anemia of chronic kidney disease, s/p GI Bleed on anticoagulation (4) Hypothyroid by history (5) HTN (hypertension) (6) Diabetic nephropathy, periodic of hypoglycemia in the past other diagnosis History of urinary retention h/o Hypertension h/o UTI Plan Today's blood work reviewed Slow hydrate Stop Lopressor order due to bradycardia, continue to watch the heart rate Change Protonix to p.o. Monitor renal parameters Keep the blood pressure and blood sugar in check Per orders Discussed with RN Subjective ROS Limited/Unobtainable: No Constitutional: Reports: malaise Objective Objective Last 24 Hour Vital Signs Date Time Temp Pulse Resp B/P (MAP) Pulse Ox O2 Delivery O2 Flow Rate FiO2 12/11/19 12:34 158/76 12/11/19 12:00 97.8 57 18 158/76 (103) 96 12/11/19 09:00 Room Air 12/11/19 08:29 52 139/74 12/11/19 08:00 97.7 52 19 139/74 (95) 93 12/11/19 04:00 97.9 58 20 151/73 (99) 97 12/11/19 00:00 98.2 76 20 144/68 (93) 97 12/10/19 21:00 Room Air 12/10/19 20:00 98.1 51 18 138/64 (88) 97 12/10/19 16:00 97.8 55 18 121/68 (85) 96 Intake and Output 12/10/19 12/11/19 19:00 07:00 Intake Total 930 ml 150 ml Balance 930 ml 150 ml Intake Oral 480 ml IV Total 450 ml 150 ml # Voids 6 # Bowel Movements 1 Current Medications Medications (Trade) Dose Ordered Sig/Leon Route PRN Reason Start Time Stop Time Status Last Admin Dose Admin Acetaminophen (Tylenol) 500 mg Q6H PRN ORAL Mild Pain/Temp > 100.5 12/10/19 19:15 01/02/20 19:14 Acetaminophen (Tylenol) 650 mg Q6H PRN ORAL Pain Scale (3-5) 12/10/19 19:02 01/02/20 19:01 Amlodipine Besylate (Norvasc) 5 mg DAILY ORAL 12/11/19 09:00 01/03/20 08:59 12/11/19 08:29 Aspirin (Ecotrin) 81 mg DAILY ORAL 12/11/19 09:00 01/18/20 08:59 12/11/19 08:29 Atorvastatin Calcium (Lipitor) 40 mg BEDTIME ORAL 12/10/19 21:00 03/02/20 20:59 12/10/19 21:40 Clopidogrel Bisulfate (Plavix) 75 mg DAILY ORAL 12/11/19 09:00 01/03/20 08:59 12/11/19 08:30 Dextrose (Dextrose 50%) 25 ml Q30M PRN IV Hypoglycemia 12/10/19 19:17 03/07/20 19:16 Dextrose (Dextrose 50%) 50 ml Q30M PRN IV Hypoglycemia 12/10/19 19:15 03/07/20 13:14 Dextrose/Sodium Chloride 1,000 ml @ 50 mls/hr Q20H IV 12/10/19 18:45 01/07/20 13:28 12/11/19 03:34 Docusate Sodium (Colace) 100 mg THREE TIMES A DAY ORAL 12/11/19 09:00 01/03/20 08:59 12/11/19 12:34 Finasteride (Proscar) 5 mg DAILY ORAL 12/11/19 09:00 03/03/20 08:59 12/11/19 08:29 Hydralazine HCl (Apresoline) 25 mg Q4H PRN ORAL BP over 160 systolic 12/10/19 19:21 03/02/20 19:20 Insulin Aspart (NovoLOG) BEFORE MEALS AND HS SUBQ 12/10/19 21:00 03/07/20 16:29 12/10/19 21:00 Levothyroxine Sodium (Synthroid) 200 mcg ACBREAKFAST ORAL 12/11/19 06:30 01/03/20 06:29 12/11/19 06:06 Mirtazapine (Remeron) 15 mg HSPRN PRN ORAL Insomnia 12/10/19 21:00 03/02/20 20:59 Nitroglycerin (Ntg) 1 patch Q24H TDERMAL 12/11/19 12:30 01/03/20 12:29 12/11/19 12:34 Pantoprazole (Protonix) 40 mg EVERY 12 HOURS ORAL 12/10/19 21:00 01/04/20 20:59 12/11/19 08:29 Tamsulosin HCl (Flomax) 0.4 mg BID ORAL 12/11/19 09:00 01/03/20 12:09 12/11/19 08:29 Laboratory Tests 12/11/19 05:35: White Blood Count 6.8, Red Blood Count 3.09L, Hemoglobin 9.6L, Hematocrit 28.4L , Mean Corpuscular Volume 92, Mean Corpuscular Hemoglobin 31.0, Mean Corpuscular Hemoglobin Concent 33.8, Red Cell Distribution Width 15.3H, Platelet Count 219, Mean Platelet Volume 6.5, Neutrophils (%) (Auto) 63.7, Lymphocytes (%) (Auto) 19.7L, Monocytes (%) (Auto) 7.7, Eosinophils (%) (Auto) 8.0H, Basophils (%) (Auto) 0.9, Sodium Level 147H, Potassium Level 3.9, Chloride Level 112H, Carbon Dioxide Level 23, Anion Gap 12, Blood Urea Nitrogen 16, Creatinine 1.9H, Estimat Glomerular Filtration Rate 35.9, Glucose Level 105 , Calcium Level 8.3L, Phosphorus Level 3.6, Magnesium Level 1.6L, Total Bilirubin 0.4, Aspartate Amino Transf (AST/SGOT) 15, Alanine Aminotransferase ( ALT/SGPT) 20, Alkaline Phosphatase 101, Total Protein 6.4, Albumin 2.9L, Globulin 3.5, Albumin/Globulin Ratio 0.8L Height (Feet): 5 Height (Inches): 8.00 Weight (Pounds): 206 General Appearance: no apparent distress Cardiovascular: bradycardia Respiratory/Chest: decreased breath sounds Abdomen: distended Objective No change Rafa Farr MD Dec 11, 2019 13:43
--- NOTE | 2019-12-11 14:15 | NUR ---
NURSE NOTES: patient was discharged to [facility] with stable condition via ambulance gurney. no respiratory distress noted. no pain at this time. checked and counted belongings with patient. provided dc packet. obtained sign. removed IV and ID band.
[2019-12-11] MEDS ORDERED: D5 1/2NS 1000ml IV ONE (14:23)
[2019-12-11] MEDS ORDERED: D5NS 1000ml IV ONE (14:23)
--- NOTE | 2019-12-11 16:22 | NUR ---
*-* INSURANCE *-* ALL CLINICALS AND REVIEWS HAVE BEEN FAXED TO: [employer] [employer] NO REF# PH: [phone] FAX: [phone]
--- NOTE | 2019-12-13 15:51 | Discharge Summary ---
Discharge Summary Discharge Summary _ DATE OF ADMISSION: 12/03/2019 DATE OF DISCHARGE: 12/11/2019 DISCHARGED BY: Dr. Schilling REASON FOR ADMISSION: 64 years old male with past medical history of diabetes mellitus, hypertension, CVA, dementia, hypothyroidism, renal disease, resident of [facility], presented for nose bleeding and anemia, identified at the [facility] facility. Nursing staff was also concerned about poorly controlled blood pressure. Patient by himself was a poor historian and unable to provide much of the information . Upon evaluation blood pressure was 151/72. Laboratory work-up revealed hemoglobin 8.3 , hematocrit 25.1. No leukocytosis. Platelet count 206. INR 1.1. Potassium 5.1. BUN 62, creatinine 2.6. Lactic acid 0.6. Glucose 140. Stable LFT. Troponin 0.510. EKG revealed sinus bradycardia with heart rate 53, no PVC , no ectopy, no blocks. Albumin 3.4. CT of the head revealed no acute intracranial pathology. Old right MCA territory infarct noted. 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 Chest x-ray demonstrated pulmonary vascular congestion. In emergency department patient received IV Protonix. Patient did not exhibit any evidence of active bleeding nose bleeding in emergency department. CONSULTANTS: crtt Dr. Ruth ID specialist Dr. Troy Chatman manager of applications development Dr. Welch career development associate Dr. Estrada territory service representative/oncologist Dr. Whyte HOSPITAL COURSE: Patient admitted to telemetry floor. Serial troponin levels were flat , minimally elevated. Patient had at in the past as well minimal troponin elevation, which was typical for him, likely due to renal failure. Patient had no chest pain. Beta-toby /metoprolol was discontinued due to bradycardia. Dual antiplatelet therapy with aspirin and Plavix continued. Echocardiogram revealed preserved ejection fraction of 55 to 60% with mild left ventricular hypertrophy. No evidence of pericardial effusion. No evidence of wall motion abnormality. Right ventricular systolic pressure of 49 consistent with moderate pulmonary hypertension. Blood pressure was managed with calcium channel toby. Lipid panel was stable. Statin continued. TSH was minimally elevated. Negotiations Director recommended continue current dose of levothyroxine and repeat TSH along with free T4 and T3 in 3 to 4 weeks. Hemoglobin and hematocrit were closely monitored with goal to keep hemoglobin above 7. Patient undergone transfusion of 1 unit of packed red blood cells while in the hospital. Anemia work-up revealed evidence of anemia of chronic disease. Stable folate and B12. Prior to discharge hemoglobin 9.6, hematocrit 28.4. Patient had evidence of sphenoid masses and nasal bleeding on the CT scan. Patient will need outpatient biopsy by ENT for further workup and management. Renal ultrasound demonstrated no hydronephrosis. Normal bilateral kidney echogenicity. Renal parameters and electrolytes were closely monitored. Electrolytes corrected as needed , and nephrotoxins were avoided. Patient was slowly hydrated. Renal parameters improved. Prior to discharge BUN from 62 down to 16 and creatinine from 2.7 down to 1.9. According to manager of applications development patient had acute on chronic (probably due to diabetic nephropathy) renal failure, Patient had episodes of hypoglycemia. Negotiations Director followed. Patient started on IV fluids with D5 normal saline at slow hydration 50 mL/h. Hypoglycemia protocol was in order. Blood sugar was closely monitored . Hemoglobin A1c at goal 6.2 . Blood sugar was managed as per career development associate recommendation . No further evidence of hypoglycemia after IV fluid stopped. Patient clinically stabilized and was ready for transfer back to [facility] for continuation of care. FINAL DIAGNOSES: Chronically elevated troponin , likely due to renal failure Sphenoid mass with nasal bleeding Hypertension Hypothyroidism Hyperlipidemia Acute on chronic (secondary to diabetic nephropathy) renal failure Anemia of chronic kidney disease Bradycardia Diabetic nephropathy History of CVA BPH DISCHARGE MEDICATIONS: See Medication Reconciliation list. DISCHARGE INSTRUCTIONS: Patient was discharged to the [facility] facility. Follow up with medical doctor at the facility. I have been assigned to dictate discharge summary for this account. I was not involved in the patient's management. Dina Oconnor NP Dec 13, 2019 15:51
--- NOTE | 2019-12-15 14:28 | NUR ---
*-* INSURANCE *-* DISCHARGE SUMMARY HAS BEEN FAXED TO: [employer] [employer]AC[employer] NO REF# PH: [phone] FAX: [phone]
== END 2019-12-11 14:24 | DRG 469 ==
LOC: EDBD 11:20 → EDUNIT# 11:20 → EMR 12:19 → EDBEDREQ 14:40 → 2E 16:04 → EDBEDREQ 19:05 → 4E 12-10 15:11
DX: N17.9 Acute kidney failure, unspecified (principal); R00.1 Bradycardia, unspecified; R62.7 Adult failure to thrive; Z68.33 Body mass index [BMI] 33.0-33.9, adult; K92.2 Gastrointestinal hemorrhage, unspecified; E03.9 Hypothyroidism, unspecified; D63.1 Anemia in chronic kidney disease; E11.21 Type 2 diabetes mellitus with diabetic nephropathy; Z79.4 Long term (current) use of insulin; Z79.84 Long term (current) use of oral hypoglycemic drugs; I12.9 Hypertensive chronic kidney disease with stage 1 through stage 4 chronic kidney disease, or unspecified chronic kidney disease; N18.9 Chronic kidney disease, unspecified; I69.354 Hemiplegia and hemiparesis following cerebral infarction affecting left non-dominant side; R79.1 Abnormal coagulation profile; Z89.429 Acquired absence of other toe(s), unspecified side; N40.0 Benign prostatic hyperplasia without lower urinary tract symptoms; R22.0 Localized swelling, mass and lump, head; Z79.02 Long term (current) use of antithrombotics/antiplatelets; Z79.82 Long term (current) use of aspirin; E78.5 Hyperlipidemia, unspecified; I25.2 Old myocardial infarction
CPT/HCPCS: 36415; 70450; 71045; 76770; 80053; 80061; 81003; 82550; 82553; 82607; 82728; 82746; 82962; 82977; 83036; 83540; 83550; 83605; 83735; 83880; 84100; 84443; 84484; 84550; 85007; 85025; 85610; 85730; 86140; 86850; 86900; 86901; 86920; 87040; 87081; 93005; 93306; 96361; 96365; 96366; 96375; 99285; J1815; J7030